=== PATIENT | female | born 1955 ===

== ENCOUNTER 2021-04-14 09:15 | Outpatient (RCR) | payer OTHER, SELFPAY ==
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
[2021-03-24 13:15] VITALS: BMI 31.3
--- NOTE | 2021-03-24 13:30 | PC.ADMIT ---
Patient is a 65 year old female who was referred by her outpatient psychiatrist d/t increase in depression, anxiety, OCD, and PTSD sxs. Patient has been struggling with an increase in symptoms since she was started on Lyrica 3 months ago which was prescribed as patient was presumed to have shingles for a second time. Patient reports that it turns out she did not have shingles however reports adverse effects of the medication including dizziness and an increase in depression and anxiety thus she stopped the medication. Patient reports an increase in self harming thoughts for the past 3 weeks, denied plan or intent. Patient reports a history of cutting her feet however has not cut herself since 2004. Patient has a history of hospitalization last time in 2019. Patient also has attending PHP 3 times and has found treatment to be helpful. Patient is alert and oriented x4. Calm and cooperative. Presents with depressed mood and anxious affect. Denied SI or thoughts to harm herself at present. Reports having obsessive thoughts to harm self for the past 3 weeks however denied plan or intent. Asked if patient was not feeling safe who could she contact and she stated she could go to the ER or call crisis. Patient has the number to crisis if needed. Patient gave verbal permission to email her a copy of her safety plan. Medications reconciled with Babs from [facility] and patient. Patient reports Anafranil was recently increased from 50 mg to 75 mg daily. She also reports she has been taking medications as prescribed. Medication education provided.
--- NOTE | 2021-03-30 14:37 | P.PNPSP_ITS ---
Subjective Subjective Date of Service: 03/30/21 Reason For Visit: MDD, OCD Subjective Notes: Esteban Warning Guardianship: No Medical Problems Affecting Mental Status: No Interim History: lAida reports that she feels some improvement since our last meeting a week ago. she attributes this improvement to the dose increase of clomipramine from 50 mg daily to 75 mg daily, which occurred approximately 2 weeks ago. She states that she has a decreased frequency in thoughts of self- harm within the past week. She did state that during the past week however there was 1 moment when I was holding some glass , with the intention of self- harm, but was able to dismiss these thoughts. She states that she feels safe today, and is not having any type of thoughts of harm to self or others at this time. She reports she feels her other medications are working appropriately, at current doses. She wishes to remain on current med as is, and she hopes that over time with the increased clomipramine, along with the other medications, the thoughts of self-harm will decrease further in frequency, As well as the ability to dismiss such thoughts will increase. She reports she has an adequate supply of current medications, and no refills are needed. Medication Compliance: Yes Side effects from medications: No Attending Groups: Yes Review of Systems Review of Systems A full review of systems was completed and was negative with the exception of pertinent positives noted in the history of presenting illness. Yes all other systems are reviewed and are negative Mental Status Exam Mental Status Exam Narrative: Well-developed, well-nourished female, appeared alert and oriented, in no apparent distress. Patient Appearance: Well Grooomed and Appropriate Patient Orientation: Person, Place, Time and Situation Level of Consciousness: Awake, Appropriate and Alert Patient Behavior: Appropriate, Cooperative and Good Eye Contact Mood Description: Appropriate, Depressed and Anxious Affect Description: Appropriate, Depressed and Anxious Patient Cognition Impaired: No Ability to Follow Directions: Excellent Speech Pattern: Clear (soft-spoken) and Soft-Spoken Memory Description: Intact Hallucinations: None Delusions: Not Present Thought Process: Intact, Goal Oriented and Linear Thought Content: positive for Intact, positive for Obsessional Thoughts (continues with thoughts of self-harm, but reports they have begun to lessen in frequency. ) and positive for Suicidal Ideation (passive SI, denies intent or plan. However, has picked up sharp objects within past week with intent to harm self, was able to dismiss thoughts and put down objects. ) Depressive Symptoms: Increased Anxiety, Loss of Int. in Activity, Feelings of Worthlessness and Thoughts of /Suicide Judgement: Fair Judgement and Insight: Judgment and insight continue fair Diagnostics Vital Signs (24Hr): Body Mass Index 31.3 Assessment & Plan Assessment & Plan (1) Depression, major, severe recurrence: Status: Acute Code(s): F33.2 - Major depressive disorder, recurrent severe without psychotic features Assessment and Plan: patient reports she feels that frequency of Intrusive thoughts with SI is decreasing. She also reports that her ability to dismiss these thoughts when they occur is increasing. However, she does acknowledge that she continues to experience them, aura and found herself over the past week at 1 point holding some glass , with the intent of self-harm. She reports that she did not act on this, but was able to put the class down in to dismiss the thought. Denies any type of intent of self-harm today, reports that she feels safe today. She agrees to seek assistance if these thoughts to harm self become overwhelming. Patient has phone number of local crisis team readily available. (2) OCD (obsessive compulsive disorder): Status: Acute Code(s): F42.9 - Obsessive-compulsive disorder, unspecified Assessment and Plan: Patient reports that she believes the recent increase of clomipramine 2 weeks ago from 50 mg to 75 mg is helping to begin to ease some of her OCD symptoms. she reports that she does not need any refills on her medications at this time. Plan: Continue with current medications as is, Including Abilify 5 mg, clomipramine 75 mg, clonazepam 0.5 b.i.d., lorazepam 0.5 b.i.d. p.r.n., Prilosec 20, Paxil 40 mg at bedtime, propranolol 10 mg daily, and quetiapine 200 mg at bedtime. No refills needed. Follow-up with patient in 1 week, sooner if needed. Certification I certify that partial hospital treatment is medically necessary due to the symptoms and problems resulting from the patient's mental illness and the failure to treat the patient at the partial hospital level of care would likely result in the patient requiring inpatient psychiatric care which could not be prevented at a less intensive level of care. Greater than 50% of the session was spent on counseling and/or coordination of care Discharge Plan Discharge Attending provider: Remington Burgess Medications: New propranolol 10 mg tablet 10 mg PO DAILY 14 Days Qty: 14 RF: 0 No Action quetiapine [Seroquel] 200 mg Tablet 200 mg PO BEDTIME RF: 0 clonazepam [Klonopin] 1 mg Tablet 0.5 mg PO BID RF: 0 lorazepam 0.5 mg Tablet 0.5 mg PO BID PRN (Reason: Anxiety) RF: 0 paroxetine HCl [Paxil] 40 mg Tablet 40 mg PO BEDTIME RF: 0 clomipramine [Anafranil] 25 mg Capsule 75 mg PO BEDTIME RF: 0 aripiprazole [Abilify] 5 mg Tablet 5 mg PO BEDTIME RF: 0 omeprazole magnesium [Prilosec OTC] 20 mg Tablet,Delayed Release (Dr/Ec) 20 mg PO DAILY RF: 0 Telehealth Telehealth Location of provider rendering services: practice address Location of patient: address on file Patient Identification confirmed using: Name, : Yes Telehealth method: video Patient verbally consented to treatment: Yes Patient verbally consented to billing insurance company: Yes Patient informed of any privacy concerns related to visit: Yes Time spent with patient (mins): 15
--- NOTE | 2021-04-03 16:37 | HO.PHPPROGNO ---
Subjective Subjective Date of Service: 04/03/21 Reason For Visit: MDD, OCD Subjective Notes: Esteban Warning Guardianship: No Medical Problems Affecting Mental Status: No Interim History: Alida reports feeling good today. She states that she believes the increase in the Anafranil from 50 mg to 75 mg has helped her to manage my thoughts . She states that she does not feel any compulsions today to self-harm, and denies any type of SI at this time. She reports that she has been feeling this way for the past 4 to 5 days. She did state that she feels she is experiencing a definite tremor in her chin and lips, and would like to taper down her Abilify from 5 mg daily to 2.5 mg daily. We discussed her most recent stable days regarding lack of compulsion to self-harm. This instructional writer suggested that she hold off on lowering dose until she sees her outpatient provider, which will be within 2 weeks. Medication Compliance: Yes Side effects from medications: No Attending Groups: Yes Review of Systems Review of Systems no complaints Yes all other systems are reviewed and are negative Mental Status Exam Mental Status Exam Narrative: well groomed, well-nourished female, appears stated age each. In no apparent distress. Patient Appearance: Well Grooomed and Appropriate Patient Orientation: Person, Place, Time and Situation Level of Consciousness: Awake and Appropriate Patient Behavior: Appropriate and Cooperative Mood Description: Appropriate, Depressed and Anxious Affect Description: Appropriate, Depressed and Anxious Patient Cognition Impaired: No Ability to Follow Directions: Excellent Speech Pattern: Clear and Appropriate Memory Description: Intact Hallucinations: None Delusions: Not Present Thought Content: positive for Intact, positive for Obsessional Thoughts (Reports a decrease in obsessional thoughts.), positive for Goal Oriented, positive for Linear and positive for Suicidal Ideation (Denies any type of SI at this time.) Depressive Symptoms: Increased Anxiety and Thoughts of /Suicide (Reports a decrease in obsessional thoughts to harm self. Denies any type of SI at this time.) Judgement: Good Judgement and Insight: Overall judgment and insight appear grossly intact. Diagnostics Vital Signs (24Hr): Body Mass Index 31.3 Assessment & Plan Assessment & Plan (1) OCD (obsessive compulsive disorder): Status: Acute Code(s): F42.9 - Obsessive-compulsive disorder, unspecified Assessment and Plan: Patient reports a decrease in obsessional thoughts to harm self. States she believes this is in relation to increased dose of Anafranil. No medication changes at this time. (2) Depression, major, severe recurrence: Status: Acute Code(s): F33.2 - Major depressive disorder, recurrent severe without psychotic features Assessment and Plan: Patient reports mood is improving, states she has not had any thoughts to harm herself within past 4-5 days. No medication changes at this time. No refills needed. Certification I certify that partial hospital treatment is medically necessary due to the symptoms and problems resulting from the patient's mental illness and the failure to treat the patient at the partial hospital level of care would likely result in the patient requiring inpatient psychiatric care which could not be prevented at a less intensive level of care. Greater than 50% of the session was spent on counseling and/or coordination of care Discharge Plan Discharge Attending provider: Remington Burgess Medications: New propranolol 10 mg tablet 10 mg PO DAILY 14 Days Qty: 14 RF: 0 No Action quetiapine [Seroquel] 200 mg Tablet 200 mg PO BEDTIME RF: 0 clonazepam [Klonopin] 1 mg Tablet 0.5 mg PO BID RF: 0 lorazepam 0.5 mg Tablet 0.5 mg PO BID PRN (Reason: Anxiety) RF: 0 paroxetine HCl [Paxil] 40 mg Tablet 40 mg PO BEDTIME RF: 0 clomipramine [Anafranil] 25 mg Capsule 75 mg PO BEDTIME RF: 0 aripiprazole [Abilify] 5 mg Tablet 5 mg PO BEDTIME RF: 0 omeprazole magnesium [Prilosec OTC] 20 mg Tablet,Delayed Release (Dr/Ec) 20 mg PO DAILY RF: 0 Telehealth Telehealth Location of provider rendering services: practice address Location of patient: address on file Patient Identification confirmed using: Name, : Yes Telehealth method: video Patient verbally consented to treatment: Yes Patient verbally consented to billing insurance company: Yes Patient informed of any privacy concerns related to visit: Yes Time spent with patient (mins): 15
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
--- NOTE | 2021-04-14 12:07 | PC.NURSE ---
Patient scheduled for discharge today. Reviewed patient medications with patient. Patient reports taking medications as prescribed. Appears to understand her medications. No safety concerns. Denied SI or thoughts to harm herself. Feels ready for discharge. Patient has the crisis number if needed.
--- NOTE | 2021-04-14 14:33 | PC.NURSE ---
I left a message for Mary Ann Mortensen re clients dc from program
== END 2021-04-17 07:42 | disposition home or self-care (01) ==
LOC: HO.PHPA 09:15
PROVIDERS: Visit Provider Psychiatry & Neurology Psychiatry
DX: F33.2 Major depressive disorder, recurrent severe without psychotic features (principal); F42.9 Obsessive-compulsive disorder, unspecified; F43.10 Post-traumatic stress disorder, unspecified; Z79.899 Other long term (current) drug therapy
CPT/HCPCS: 90791; 90853

== ENCOUNTER 2021-05-01 07:22 | Outpatient (REF) | payer OTHER, SELFPAY ==
[2021-05-06 05:47] LABS: Clomipramine 264 mcg/L (50-250); Clomipramine + Desmethylclom 566 mcg/L (200-600); Desmethylclomipramine 302 mcg/L (150-350)
== END 2021-05-01 07:23 | disposition home or self-care (01) ==
LOC: HO.LAB 07:22
PROVIDERS: PCP Nurse Practitioner Family; Visit Provider Psychiatry & Neurology Psychiatry
DX: Z51.81 Encounter for therapeutic drug level monitoring (principal); F33.3 Major depressive disorder, recurrent, severe with psychotic symptoms; Z79.899 Other long term (current) drug therapy
CPT/HCPCS: 36415; 80335

== ENCOUNTER 2021-07-14 08:55 | Outpatient (REF) | payer OTHER, SELFPAY ==
--- NOTE | 2021-07-14 09:11 | ECG_ITS ---
Test Reason : med monitoring Blood Pressure : / mmHG Vent. Rate : 073 BPM Atrial Rate : 073 BPM P-R Int : 178 ms QRS Dur : 084 ms QT Int : 390 ms P-R-T Axes : 060 -05 043 degrees QTc Int : 429 ms Normal sinus rhythm Nonspecific ST abnormality Anterior leads Abnormal ECG When compared with ECG of 20-NOV-2019 16:04, No significant change was found Referred By: Ovidio Williamson Electronically Signed By:LIZ OLVERA MD
[2021-07-14 10:00] LABS: Estimated Average Glucose 111 mg/dL; Hemoglobin A1c % 5.5 %
[2021-07-14 10:12] LABS: Alanine Aminotransferase 38 U/L (0-31); Albumin Level 4.1 g/dL (3.5-5.0); Alkaline Phosphatase 92 U/L (39-117); Anion Gap 10 (12-20); Aspartate Amino Transferase 27 U/L (5-31); Bilirubin Total 0.3 mg/dL (0.0-1.0); Blood Urea Nitrogen 18 mg/dL (9-16); Calcium 9.7 mg/dL (8.4-10.2); Carbon Dioxide 30 mmol/L (22-29); Chloride 107 mmol/L (96-108); Estimated Glomerular Filt Rate 59; Glucose Random 87 mg/dL (60-115); Potassium 4.3 mmol/L (3.3-5.1); Sodium 143 mmol/L (135-145); Total Protein 6.7 g/dL (6.5-8.0)
== END 2021-07-14 08:56 | disposition home or self-care (01) ==
LOC: HO.LAB 08:55
PROVIDERS: Visit Provider Psychiatry & Neurology Psychiatry
DX: F33.3 Major depressive disorder, recurrent, severe with psychotic symptoms (principal); K76.0 Fatty (change of) liver, not elsewhere classified; Z79.899 Other long term (current) drug therapy
CPT/HCPCS: 36415; 80053; 83036; 93005

== ENCOUNTER 2021-10-13 20:13 | Inpatient (IN) | payer OTHER, SELFPAY ==
[2021-10-13 21:01] VITALS: BP 164/94; PULSE 78; RESP 14; TEMP 36.9; O2SAT 95; BMI 32.8
--- NOTE | 2021-10-13 21:21 | PC.NURSE ---
Pt belongings placed in pod locker 9. Pt changed to hospital gown, pants, and socks.
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
[2021-10-13 22:11] VITALS: BP 127/75; PULSE 73; RESP 20; TEMP 36.7; O2SAT 96
[2021-10-13 23:32] LABS: MANUAL DIFF FLAG NO
[2021-10-13 23:34] LABS: Basophils Absolute Auto 0.1 X10*3/uL (0.0-0.2); Basophils Percent Auto 0.6 % (0-2); Eosinophils Absolute Auto 0.6 X10*3/uL (0.0-0.4); Eosinophils Percent Auto 7.2 % (0-4); Hemoglobin 13.2 g/dl (12.0-16.0); Imm Gran Abs Auto 0.03 X10*3/uL (0.00-0.03); Imm Gran Pct Auto 0.4 % (0.0-0.4); Lymphocytes Absolute Auto 2.3 X10*3/uL (1.2-4.9); Lymphocytes Percent Auto 26.6 % (20-40); Mean Corpuscular HGB Conc 32.2 g/dl (31.0-35.0); Mean Corpuscular Hemoglobin 30.8 pg (27.0-33.0); Mean Corpuscular Volume 95.8 fL (80.0-98.0); Mean Platelet Volume 11.9 fL (9.4-12.3); Monocytes Absolute Auto 0.7 X10*3/uL (0.1-1.2); Monocytes Percent Auto 8.4 % (2-11); Neutrophils Absolute Auto 4.8 x10*3/uL (2.0-8.3); Neutrophils Percent Auto 56.8 % (45-73); Platelet Count 199 X10*3/uL (160-400); Red Blood Count 4.28 X10*6/uL (4.20-5.50); Red Cell Distribution Width 13.7 % (11.0-16.0); White Blood Count 8.5 X10*3/uL (4.8-10.8)
[2021-10-13 23:52] LABS: COVID-19 Test Negative (Negative); IDNOW Serial# 9DD0AD1C
[2021-10-14] LABS: Amphetamine Screen Urine Not Detected (Not Detect); Barbiturates, Urine Not Detected (Not Detect); Benzodiazepines Screen Urine Not Detected (Not Detect); Cannabinoid Screen Urine Not Detected (Not Detect); Cocaine Screen Urine Not Detected (Not Detect); Fentanyl, urine Not Detected (Not Detect); Opiate Screen Urine Not Detected (Not Detect); Phencyclidine Screen Urine Not Detected (Not Detect)
[2021-10-14 00:02] LABS: Alanine Aminotransferase 55 U/L (0-31); Albumin Level 3.9 g/dL (3.5-5.0); Alkaline Phosphatase 106 U/L (39-117); Anion Gap 10 (12-20); Aspartate Amino Transferase 37 U/L (5-31); Bilirubin Total < 0.2 mg/dL (0.0-1.0); Blood Urea Nitrogen 17 mg/dL (9-16); Calcium 9.6 mg/dL (8.4-10.2); Carbon Dioxide 29 mmol/L (22-29); Chloride 107 mmol/L (96-108); Creatinine Clr Calc Pharmacy 74.8; Estimated Glomerular Filt Rate > 60; Glucose Random 103 mg/dL (60-115); Sodium 142 mmol/L (135-145); Total Protein 6.9 g/dL (6.5-8.0)
[2021-10-14 00:51] VITALS: BP 109/72; PULSE 80; RESP 16; TEMP 36.8; O2SAT 96
[2021-10-14 00:54] LABS: Appearance Urine CLEAR; Color Urine YELLOW; Glucose Urine UA NEG (NEG); Leukocyte Esterase Urine NEG (NEG); Nitrite Urine NEG (NEG); Specific Gravity - Urine 1.015 (1.005-1.025); Urine Blood NEG (NEG); Urine Ketones NEG (NEG); Urine Protein NEG (NEG-TRACE)
[2021-10-14 02:17] VITALS: BP 119/70; PULSE 79; RESP 16; TEMP 37.1; O2SAT 95
[2021-10-14 05:49] VITALS: BP 132/74; PULSE 68; RESP 16; TEMP 36.9; O2SAT 97
--- NOTE | 2021-10-14 07:37 | MHC.CARE ---
Pt reported she did not receive her evening medications on 10/13/21. CARE Team spoke with charge entry specialist Darci that Pt did not receive her evening medications last night. stamp pad finisher made aware and verified Pt morning medications were ordered for today.
[2021-10-14 07:42] VITALS: BP 118/76; PULSE 79; RESP 16; TEMP 37.3; O2SAT 95
[2021-10-14] MEDS: PARoxetine HCL 30 MG TABLET PO (07:42)
[2021-10-14] MEDS: clonazePAM 0.5 MG TABLET PO ×2 (07:43→20:35)
[2021-10-14] MEDS: Propranolol HCL 10 MG TABLET PO (07:43)
[2021-10-14] MEDS: Omeprazole 20 MG CAPSULE.DR PO (07:43)
[2021-10-14 09:47] VITALS: BP 134/78; PULSE 76; RESP 16; TEMP 37; O2SAT 95
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
[2021-10-14 15:34] VITALS: BP 133/80; PULSE 79; TEMP 36.6; O2SAT 98
--- NOTE | 2021-10-14 18:39 | PC.NURSE ---
report taken from thais erazo at this time. Pt in day room interacting with peers and watching tv. pt appears in nad. Will continue to monitor
[2021-10-14] MEDS: clomiPRAMINE HCl 25 MG CAPSULE 75 MG PO (20:35)
[2021-10-14] MEDS: LORazepam 0.5 MG TABLET PO (20:35)
[2021-10-14] MEDS: ARIPiprazole 5 MG TABLET PO (20:39)
[2021-10-15 03:47] VITALS: BP 139/82; PULSE 75; RESP 15; TEMP 36.8; O2SAT 99
--- NOTE | 2021-10-15 06:01 | PC.NURSE ---
Patient slept through the night, no distress observed/reported, medication compliant, behavior appropriate, disposition per care team is section 12 inpatient bed search, VSS, will continue to monitor.
--- NOTE | 2021-10-15 07:38 | PC.NURSE ---
SItting in common area. Chatting with staff and patients. Calm. Good eye contact. Skin pwd. steady on feet. Eating breakfast.
[2021-10-15] MEDS: Propranolol HCL 10 MG TABLET PO (09:17)
[2021-10-15] MEDS: clonazePAM 0.5 MG TABLET PO ×2 (09:17→20:40)
[2021-10-15] MEDS: PARoxetine HCL 30 MG TABLET PO (09:17)
[2021-10-15] MEDS: Omeprazole 20 MG CAPSULE.DR PO (09:17)
--- NOTE | 2021-10-15 12:15 | PC.NURSE ---
Pt has been calm since this RN arrival at 7am. socializing and at times resting alone in room. States that were she to be home she'd likely be triggered and would possible attempt Suicide. Has no plan for self harm while in POD.
[2021-10-15 14:00] VITALS: BP 136/62; PULSE 74; TEMP 37.1; O2SAT 98
[2021-10-15] MEDS: LORazepam 0.5 MG TABLET PO (18:34)
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
[2021-10-15] MEDS: ARIPiprazole 5 MG TABLET PO (20:40)
[2021-10-15] MEDS: clomiPRAMINE HCl 25 MG CAPSULE 75 MG PO (20:41)
--- NOTE | 2021-10-16 | ECG_ITS ---
Test Reason : medical clearance Blood Pressure : / mmHG Vent. Rate : 070 BPM Atrial Rate : 070 BPM P-R Int : 168 ms QRS Dur : 090 ms QT Int : 424 ms P-R-T Axes : 061 -02 040 degrees QTc Int : 457 ms Normal sinus rhythm Nonspecific ST abnormality Abnormal ECG When compared with ECG of 14-JUL-2021 09:15, No significant change was found Referred By: Radha Fry Electronically Signed By:KORTNEY HARDIN MD
[2021-10-16 01:53] VITALS: BP 140/74; PULSE 78; RESP 17; TEMP 36.4; O2SAT 99
--- NOTE | 2021-10-16 06:07 | PC.NURSE ---
Patient slept through the night, no distress observed/reported, medication compliant, behavior appropriate and non-concerning, disposition per care team is section 12 inpatient bed search, no update on bed search, VSS, will continue to monitor
[2021-10-16 06:47] VITALS: BMI 32.4
--- NOTE | 2021-10-16 07:14 | PC.NURSE ---
patient awake at present respirations appear even and unlabored, patient quietly socializing w similar age peer patient appears in no distress
[2021-10-16 07:57] VITALS: BP 120/67; PULSE 75; RESP 14; TEMP 36.7; O2SAT 96
[2021-10-16] MEDS: Propranolol HCL 10 MG TABLET PO (08:23)
[2021-10-16] MEDS: Omeprazole 20 MG CAPSULE.DR PO (08:24)
[2021-10-16] MEDS: PARoxetine HCL 30 MG TABLET PO (08:24)
[2021-10-16] MEDS: clonazePAM 0.5 MG TABLET PO ×2 (08:24→20:48)
[2021-10-16] MEDS: LORazepam 0.5 MG TABLET PO (09:35)
[2021-10-16 10:19] LABS: COVID-19 Test Negative (Negative)
--- NOTE | 2021-10-16 14:59 | PC.NURSE ---
Patient is alert and oriented x 4 lung sounds are clear skin is pink warm and dry speaks in full sentences without difficulty aware of planof care to be admitted to room 517-1, escorted to via wheel chair with staff, security and belongings.
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
[2021-10-16] MEDS: clomiPRAMINE HCl 25 MG CAPSULE 75 MG PO (20:48)
[2021-10-16] MEDS: ARIPiprazole 5 MG TABLET PO (20:48)
[2021-10-17] MEDS: LORazepam 0.5 MG TABLET PO (03:02)
[2021-10-17 08:30] LABS: Cholesterol 236 mg/dL; HDL Cholesterol 47 mg/dL; LDL Cholesterol Calculated 160 mg/dl; Magnesium 2.4 mg/dL (1.6-2.6); Triglycerides 145 mg/dL
[2021-10-17 08:48] LABS: Estimated Average Glucose 108 mg/dL; Hemoglobin A1c % 5.4 %
[2021-10-17 08:52] LABS: Free T4 (Free Thyroxine) 0.84 ng/dL (0.71-1.85); Thyroid Stimulating Hormone 5.51 uIU/mL (0.32-4.0)
[2021-10-17] MEDS: Propranolol HCL 10 MG TABLET PO (09:01)
[2021-10-17] MEDS: Omeprazole 20 MG CAPSULE.DR PO (09:01)
[2021-10-17] MEDS: clonazePAM 0.5 MG TABLET PO ×2 (09:02→20:49)
[2021-10-17] MEDS: PARoxetine HCL 30 MG TABLET PO (09:02)
[2021-10-17 09:06] VITALS: BP 140/63; PULSE 81; RESP 18; TEMP 36.2; O2SAT 98
[2021-10-17 09:43] LABS: Vitamin B12 417 pg/mL (200-900)
[2021-10-17] MEDS: PARoxetine HCL 10 MG TABLET PO (13:59)
[2021-10-17 18:00] VITALS: BP 129/77; PULSE 83; TEMP 35.8; O2SAT 98
[2021-10-17] MEDS: ARIPiprazole 5 MG TABLET PO (20:48)
[2021-10-17] MEDS: clomiPRAMINE HCl 25 MG CAPSULE 75 MG PO (20:49)
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
[2021-10-18] MEDS: LORazepam 0.5 MG TABLET PO (01:20)
[2021-10-18 06:00] VITALS: BP 120/75; PULSE 79; TEMP 36.4; O2SAT 99
[2021-10-18] MEDS: Omeprazole 20 MG CAPSULE.DR PO (08:37)
[2021-10-18] MEDS: Propranolol HCL 10 MG TABLET PO (08:37)
[2021-10-18] MEDS: PARoxetine HCL 40 MG TABLET PO (08:38)
[2021-10-18] MEDS: clonazePAM 0.5 MG TABLET PO ×2 (08:38→20:56)
[2021-10-18 18:30] VITALS: BP 125/68; PULSE 78; RESP 18; TEMP 36.2; O2SAT 99
[2021-10-18] MEDS: QUEtiapine Fumarate 100 MG TABLET PO (20:55)
[2021-10-18] MEDS: clomiPRAMINE HCl 25 MG CAPSULE 75 MG PO (20:55)
[2021-10-18] MEDS: ARIPiprazole 5 MG TABLET PO (20:56)
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
[2021-10-19 06:00] VITALS: BP 119/60; PULSE 78; TEMP 36.3; O2SAT 98
[2021-10-19] MEDS: Omeprazole 20 MG CAPSULE.DR PO (08:51)
[2021-10-19] MEDS: clonazePAM 0.5 MG TABLET PO ×2 (08:51→20:58)
[2021-10-19] MEDS: PARoxetine HCL 40 MG TABLET PO (08:51)
[2021-10-19] MEDS: Propranolol HCL 10 MG TABLET PO (08:51)
[2021-10-19 18:51] VITALS: BP 123/67; PULSE 75; RESP 18; TEMP 36.4; O2SAT 96
[2021-10-19] MEDS: QUEtiapine Fumarate 100 MG TABLET PO (20:57)
[2021-10-19] MEDS: clomiPRAMINE HCl 25 MG CAPSULE 75 MG PO (20:57)
[2021-10-19] MEDS: ARIPiprazole 5 MG TABLET PO (20:58)
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
[2021-10-20] MEDS: LORazepam 1 MG TABLET PO (04:18)
[2021-10-20 05:43] VITALS: BP 110/68; PULSE 77; TEMP 35.9; O2SAT 96
[2021-10-20] MEDS: Omeprazole 20 MG CAPSULE.DR PO (09:19)
[2021-10-20] MEDS: clonazePAM 0.5 MG TABLET PO ×2 (09:20→20:42)
[2021-10-20] MEDS: PARoxetine HCL 40 MG TABLET PO (09:20)
[2021-10-20] MEDS: Propranolol HCL 10 MG TABLET PO (09:20)
[2021-10-20] MEDS: QUEtiapine Fumarate 100 MG TABLET PO (20:41)
[2021-10-20] MEDS: clomiPRAMINE HCl 25 MG CAPSULE 75 MG PO (20:41)
[2021-10-20] MEDS: ARIPiprazole 5 MG TABLET PO (20:42)
[2021-10-20 21:39] VITALS: BP 112/70; PULSE 78; RESP 17; TEMP 36.4; O2SAT 97
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
[2021-10-21] MEDS: QUEtiapine Fumarate 100 MG TABLET PO ×2 (01:11→21:09)
[2021-10-21 06:00] VITALS: BP 114/62; PULSE 77; TEMP 35.9; O2SAT 97
[2021-10-21] MEDS: PARoxetine HCL 40 MG TABLET PO (08:56)
[2021-10-21] MEDS: Omeprazole 20 MG CAPSULE.DR PO (08:56)
[2021-10-21] MEDS: clonazePAM 0.5 MG TABLET PO ×2 (08:56→21:09)
[2021-10-21] MEDS: Propranolol HCL 10 MG TABLET PO (08:56)
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
[2021-10-21 18:00] VITALS: BP 107/79; PULSE 72; TEMP 36.6; O2SAT 95
[2021-10-21] MEDS: clomiPRAMINE HCl 25 MG CAPSULE 75 MG PO (21:09)
[2021-10-21] MEDS: ARIPiprazole 5 MG TABLET PO (21:09)
[2021-10-22] MEDS: QUEtiapine Fumarate 50 MG TABLET PO ×2 (01:31→22:57)
[2021-10-22 06:00] VITALS: BP 124/58; PULSE 70; TEMP 36.3; O2SAT 97
[2021-10-22] MEDS: PARoxetine HCL 40 MG TABLET PO (08:12)
[2021-10-22] MEDS: Omeprazole 20 MG CAPSULE.DR PO (08:12)
[2021-10-22] MEDS: clonazePAM 0.5 MG TABLET PO ×2 (08:13→21:22)
[2021-10-22] MEDS: Propranolol HCL 10 MG TABLET PO (08:13)
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
[2021-10-22] MEDS: QUEtiapine Fumarate 100 MG TABLET PO (21:22)
[2021-10-22] MEDS: ARIPiprazole 5 MG TABLET PO (21:22)
[2021-10-22] MEDS: clomiPRAMINE HCl 25 MG CAPSULE 75 MG PO (21:23)
[2021-10-23 06:00] VITALS: BP 117/57; PULSE 72; TEMP 36.1; O2SAT 99
[2021-10-23] MEDS: clonazePAM 0.5 MG TABLET PO (08:38)
[2021-10-23] MEDS: Omeprazole 20 MG CAPSULE.DR PO (08:38)
[2021-10-23] MEDS: PARoxetine HCL 40 MG TABLET PO (08:38)
[2021-10-23] MEDS: Propranolol HCL 10 MG TABLET PO (08:38)
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
[2021-10-23 13:09] LABS: Alanine Aminotransferase 31 U/L (0-31); Alkaline Phosphatase 94 U/L (39-117); Aspartate Amino Transferase 23 U/L (5-31); Bilirubin Direct < 0.2 mg/dL (0.0-0.5); Bilirubin Total 0.3 mg/dL (0.0-1.0); Total Protein 6.7 g/dL (6.5-8.0)
[2021-10-23 13:14] LABS: TSH reflex Free T4 3.32 uIU/mL (0.32-4.0)
== END 2021-10-23 14:25 | disposition home or self-care (01) | DRG 885 ==
LOC: HO.ED 10-14 12:17 → HO.PM5 10-16 13:59
PROVIDERS: Physician Assistant; Admitting Provider Clinical Nurse Specialist Psychiatric/Mental Health, Adult; Emergency Provider Student in an Organized Health Care Education/Training Program; Visit Provider Psychiatry & Neurology Psychiatry
DX: F33.2 Major depressive disorder, recurrent severe without psychotic features (principal); R45.851 Suicidal ideations; F43.10 Post-traumatic stress disorder, unspecified; F42.9 Obsessive-compulsive disorder, unspecified; Z20.822 Contact with and (suspected) exposure to COVID-19; Z79.899 Other long term (current) drug therapy
CPT/HCPCS: 36415; 80053; 80061; 80076; 80307; 81003; 82607; 82746; 83036; 83735; 84439; 84443; 85025; 87635; 93005; 99285

== ENCOUNTER 2021-11-14 08:45 | Outpatient (RCR) | payer OTHER, SELFPAY ==
[2021-10-26 12:03] VITALS: BMI 32.4
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
--- NOTE | 2021-10-26 14:28 | PC.NURSE ---
Case opened in treatment team
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
--- NOTE | 2021-11-02 16:41 | P.PNPSP_ITS ---
Subjective Subjective Date of Service: 11/02/21 Reason For Visit: PTSD, unspecified, OCD, unspecified, MDD, severe Guardianship: No Medical Problems Affecting Mental Status: No Interim History: Reports mood as ?okay ?today. Reports that she did experience increased anxiety earlier today, due to a nightmare. Continues with passive SI, fleeting, no intent or plan at this time. Medication Compliance: Yes Side effects from medications: No Attending Groups: Yes Review of Systems Acute medical concerns: No Medical Review of Systems: unchanged Review of Systems Review of Systems Yes all other systems are reviewed and are negative Constitutional: Reports no additional constitutional complaints Mental Status Exam Mental Status Exam Narrative: Well-developed, well-nourished, in NAD. Fully attentive during encounter. Depressed, Somewhat anxious mood and affect. Patient Appearance: Well Grooomed and Appropriate Patient Orientation: Person, Place, Time and Situation Level of Consciousness: Awake, Appropriate and Alert Patient Behavior: Appropriate, Cooperative and Good Eye Contact Mood Description: Appropriate, Depressed and Anxious Affect Description: Appropriate, Depressed and Anxious Patient Cognition Impaired: No Ability to Follow Directions: Excellent Speech Pattern: Clear, Appropriate, Coherent and Soft-Spoken Memory Description: Intact Hallucinations: None Delusions: Not Present Thought Process: Intact Thought Content: positive for Intact, positive for Obsessional Thoughts and positive for Suicidal Ideation (Passive, no intent or plan.) Depressive Symptoms: Increased Anxiety, Difficulty Sleeping, Loss of Int. in Activity, Feelings of Worthlessness, Hopelessness, Feelings of Guilt, Unhappiness, Increased Fatigue, Thoughts of /Suicide and Low Self Esteem Judgement: Fair Diagnostics Vital Signs (24Hr): BMI result Body Mass Index 32.4 Assessment & Plan Assessment & Plan (1) PTSD (post-traumatic stress disorder): Status: Acute Code(s): F43.10 - Post-traumatic stress disorder, unspecified Assessment and Plan: Describes mood as ?okay? today. Reports that she felt she was improving regarding symptoms of depression and anxiety since she has been participating in [facility]. States though that today she became extremely anxious in the morning, after having a nightmare. She utilized 1 of her p.r.n. Ativan 0.5 tabs, and chose to participate fully in groups today. She finds that that has been extremely helpful. Continues with passive SI, fleeting, no intent or plan. Feels safe, no safety concern at this time. Does not feel any medication changes at this time are needed, as she believes the medications are working to help alleviate overall depression and anxiety, OCD symptoms. Does not need any refills. (2) OCD (obsessive compulsive disorder): Status: Acute Code(s): F42.9 - Obsessive-compulsive disorder, unspecified (3) Depression, major, severe recurrence: Status: Acute Code(s): F33.2 - Major depressive disorder, recurrent severe without psychotic features Plan 1. Continue with current medication regimen as prescribed by outpatient provider. 2. Continue with [facility] plan of care. 3. Follow-up as per protocol. Patient educated on: diagnosis, medication risk/benefits and therapeutic strategies Informed Consent: understands Reason for contiued partial hosp. stay Substantial Risk for: harm to self, inability to function and med/psych decomp ensation Certification I certify that partial hospital treatment is medically necessary due to the symptoms and problems resulting from the patient's mental illness and the failure to treat the patient at the partial hospital level of care would likely result in the patient requiring inpatient psychiatric care which could not be prevented at a less intensive level of care. I spent minutes with the patient and/or on the patient floor today, greater than?50% of which was spent counseling/coordinating care. Discharge Plan Discharge Attending provider: Remington Burgess Primary Care Provider: Kinsey Molina Medications: No Action clonazepam [Klonopin] 1 mg Tablet 0.5 mg PO BID 0RF Rx Instructions: Take 1/2 tab BID clomipramine [Anafranil] 25 mg Capsule 75 mg PO BEDTIME 0RF Label Comments: Patient stated medication has been increased to 3 caps at HS (75 mg). aripiprazole [Abilify] 5 mg Tablet 5 mg PO BEDTIME 0RF Label Comments: Patient takes at HS omeprazole magnesium [Prilosec OTC] 20 mg Tablet,Delayed Release (Dr/Ec) 20 mg PO DAILY 0RF paroxetine HCl 40 mg Tablet 40 mg PO DAILY 90 Days Qty: 90 0RF quetiapine 100 mg Tablet 100 mg PO BEDTIME 90 Days Qty: 140 0RF Rx Instructions: may take extra 1/2-1 up tp 2 x day propranolol 10 mg tablet 10 mg PO DAILY PRN (Reason: Anxiety) 14 Days Qty: 14 0RF lorazepam 0.5 mg Tablet 0.5 mg PO BID PRN (Reason: Anxiety) Qty: 0 0RF Rx Instructions: for severe agitation /anxiety may take up to 2 mg 1 x day for rescue Referrals: Kinsey Molina NP [Primary Care Provider] - 1 Week Stand Alone Forms: Patient Portal Discharge page Telehealth Telehealth Location of provider rendering services: practice address Location of patient: address on file Patient Identification confirmed using: Name, : Yes Telehealth method: video Patient verbally consented to treatment: Yes Patient verbally consented to billing insurance company: Yes Patient informed of any privacy concerns related to visit: Yes Time spent with patient (mins): 15
--- NOTE | 2021-11-09 14:44 | P.PNPSP_ITS ---
Subjective Subjective Date of Service: 11/09/21 Reason For Visit: PTSD, unspecified, OCD, unspecified, MDD, severe Guardianship: No Medical Problems Affecting Mental Status: No Interim History: Alida reports continued depressed mood, with nightmares, flashbacks of past trauma, feeling need to use her emergency meds. Denies SI/HI, no safety concern. Overwhelmed, states, It's been a rough week . Medication Compliance: Yes Side effects from medications: No Attending Groups: Yes Review of Systems Acute medical concerns: No Medical Review of Systems: unchanged Review of Systems Review of Systems Yes all other systems are reviewed and are negative Constitutional: Reports no additional constitutional complaints Mental Status Exam Mental Status Exam Narrative: Well groomed, Fully attentive during encounter. Depressed mood and affect. Patient Appearance: Well Grooomed and Appropriate Patient Orientation: Person, Place, Time and Situation Level of Consciousness: Awake, Appropriate and Alert Patient Behavior: Appropriate, Cooperative and Good Eye Contact Mood Description: Appropriate, Depressed and Sad Affect Description: Appropriate, Depressed and Sad Patient Cognition Impaired: No Ability to Follow Directions: Excellent Speech Pattern: Clear, Appropriate, Coherent and Soft-Spoken Memory Description: Intact Hallucinations: None Delusions: Not Present Thought Process: Intact Thought Content: positive for Intact and positive for Obsessional Thoughts Depressive Symptoms: Increased Anxiety, Difficulty Sleeping, Loss of Int. in A ctivity, Feelings of Worthlessness, Hopelessness, Feelings of Guilt (Also feelings of shame), Unhappiness, Increased Fatigue, Low Self Esteem and Loss of Energy Judgement: Fair Diagnostics Vital Signs (24Hr): BMI result Body Mass Index 32.4 Assessment & Plan Assessment & Plan (1) PTSD (post-traumatic stress disorder): Status: Acute Code(s): F43.10 - Post-traumatic stress disorder, unspecified Assessment and Plan: Client reports ?it has been a rough week ?. Continues with depressed mood, nightmares and flashbacks regarding past trauma. Denies SI. Patient's manages her medications in a lock box. She states that she is finding this helpful. She is given a small supply of medication as a rescue box, which includes benzodiazepine and quetiapine. She states that on days she feels overwhelmed, this is available to her. She states that she believes today she will take these after group, and try to get some rest. She states that she is finding this plan helpful when she becomes overwhelmed. She describes 2 incidents this week which have caused her distress. She met with her outpatient psychiatric provider with her on Saturday afternoon. She reported that she did find this stressful. When she met with her therapist this week, her therapist had recommended she tell her about some of her past trauma. She reported that she does not feel comfortable doing this, and actually found it triggering. She reports that although she has worked with her therapist for 19 years, she has not told her therapist her complete trauma history. She finds her past she came full, and does not want to share details. She states ?nobody should have to hear about those terrible things . Encouragement and support was offered. Patient reports that she feels her medications are helping, and does not feel she needs any medication changes at this time. She states ?I know I am doing the work, but it is difficult at times ?. She states that although at times she has had thoughts of taking more than her prescribed medications, she is not experiencing that today, and states she does not plan to harm herself. (2) OCD (obsessive compulsive disorder): Status: Acute Code(s): F42.9 - Obsessive-compulsive disorder, unspecified (3) Depression, major, severe recurrence: Status: Acute Code(s): F33.2 - Major depressive disorder, recurrent severe without psychotic features Plan 1. Continue with current [facility] plan of care. 2. Continue to offer support and encouragement. 3. Continue with current medication regimen as prescribed by outpatient provider. 4. Follow-up as per protocol, sooner if needed. Patient educated on: diagnosis, medication risk/benefits and therapeutic strategies Informed Consent: understands Reason for contiued partial hosp. stay Substantial Risk for: harm to self, inability to function, rapid decompensation and med/psych decompensation Certification I certify that partial hospital treatment is medically necessary due to the symptoms and problems resulting from the patient's mental illness and the failure to treat the patient at the partial hospital level of care would likely result in the patient requiring inpatient psychiatric care which could not be prevented at a less intensive level of care. I spent minutes with the patient and/or on the patient floor today, greater than?50% of which was spent counseling/coordinating care. Discharge Plan Discharge Attending provider: Remington Burgess Primary Care Provider: Kinsey Molina Medications: No Action clonazepam [Klonopin] 1 mg Tablet 0.5 mg PO BID 0RF Rx Instructions: Take 1/2 tab BID clomipramine [Anafranil] 25 mg Capsule 75 mg PO BEDTIME 0RF Label Comments: Patient stated medication has been increased to 3 caps at HS (75 mg). aripiprazole [Abilify] 5 mg Tablet 5 mg PO BEDTIME 0RF Label Comments: Patient takes at HS omeprazole magnesium [Prilosec OTC] 20 mg Tablet,Delayed Release (Dr/Ec) 20 mg PO DAILY 0RF paroxetine HCl 40 mg Tablet 40 mg PO DAILY 90 Days Qty: 90 0RF quetiapine 100 mg Tablet 100 mg PO BEDTIME 90 Days Qty: 140 0RF Rx Instructions: may take extra 1/2-1 up tp 2 x day propranolol 10 mg tablet 10 mg PO DAILY PRN (Reason: Anxiety) 14 Days Qty: 14 0RF lorazepam 0.5 mg Tablet 0.5 mg PO BID PRN (Reason: Anxiety) Qty: 0 0RF Rx Instructions: for severe agitation /anxiety may take up to 2 mg 1 x day for rescue Referrals: Kinsey Molina, CHAIN HOOKER [Primary Care Provider] - 1 Week Stand Alone Forms: Patient Portal Discharge page Telehealth Telehealth Location of provider rendering services: practice address Location of patient: address on file Patient Identification confirmed using: Name, : Yes Telehealth method: video Patient verbally consented to treatment: Yes Patient verbally consented to billing insurance company: Yes Patient informed of any privacy concerns related to visit: Yes Time spent with patient (mins): 20
--- NOTE | 2021-11-14 14:25 | P.PNPSP_ITS ---
Subjective Subjective Date of Service: 11/14/21 Reason For Visit: PTSD, unspecified, OCD, unspecified, MDD, severe Interim History: I evaluated the pt this morning. Pt reports ?I?ve been good, justo been getting better.? Today is her last day in [facility]. Next appointment with Dr. Williamson is the 06 of December, will be going to [place] for her birthday in the meantime. Interested in the PTSD program at [facility]. Says clomipramine ?really has changed my life? and that her panic attacks are ?much, much better.? Sleep is ?better.? Recently went to a concert in [place] with her family. Says she feels safe, denies SI/SIB.? Medication Compliance: Yes Side effects from medications: No Attending Groups: Yes Review of Systems Acute medical concerns: No Medical Review of Systems: unchanged Mental Status Exam Mental Status Exam Narrative: Patient Appearance:?Well Grooomed and Appropriate Patient Orientation:?Person, Place, Time and Situation Level of Consciousness:?Awake, Appropriate and Alert Patient Behavior:?Appropriate, Cooperative and Good Eye Contact Mood Description:?Appropriate, Depressed and Sad Affect Description:?Appropriate, Depressed and Sad Patient Cognition Impaired:?No Ability to Follow Directions:?Excellent Speech Pattern:?Clear, Appropriate, Coherent and Soft-Spoken Memory Description:?Intact Hallucinations:?None Delusions:?Not Present Thought Process:?Intact Thought Content:?positive for Intact and positive for Obsessional Thoughts Depressive Symptoms:?Increased Anxiety, Difficulty Sleeping, Loss of Int. in Activity, Feelings of Worthlessness, Hopelessness, Feelings of Guilt (Also feelings of shame), Unhappiness, Increased Fatigue, Low Self Esteem and Loss of Energy Judgment:?Fair Diagnostics Vital Signs (24Hr): BMI result Body Mass Index 32.4 Assessment & Plan Assessment & Plan (1) Depression, major, severe recurrence: Status: Acute Code(s): F33.2 - Major depressive disorder, recurrent severe without psychotic features (2) OCD (obsessive compulsive disorder): Status: Acute Code(s): F42.9 - Obsessive-compulsive disorder, unspecified (3) PTSD (post-traumatic stress disorder): Status: Acute Code(s): F43.10 - Post-traumatic stress disorder, unspecified Plan Pt reports positive benefit on medications and group therapy. Does not want med changes. Will follow up with OP provider. Says she feels safe, denies SI/SIB. Patient's manages her medications in a lock box.?Pt feels safe to discharge from [facility]. Plan 1. Follow up with primary psych provider 2. Continue with current medication regimen as prescribed by outpatient provider. Patient educated on: diagnosis, medication risk/benefits and therapeutic strategies Informed Consent: understands Reason for contiued partial hosp. stay Substantial Risk for: stable for discharge Certification I certify that partial hospital treatment is medically necessary due to the symptoms and problems resulting from the patient's mental illness and the failure to treat the patient at the partial hospital level of care would likely result in the patient requiring inpatient psychiatric care which could not be prevented at a less intensive level of care. I spent minutes with the patient and/or on the patient floor today, greater than?50% of which was spent counseling/coordinating care. Discharge Plan Discharge Attending provider: Remington Burgess Primary Care Provider: Kinsey Molina Medications: No Action clonazepam [Klonopin] 1 mg Tablet 0.5 mg PO BID 0RF Rx Instructions: Take 1/2 tab BID clomipramine [Anafranil] 25 mg Capsule 75 mg PO BEDTIME 0RF Label Comments: Patient stated medication has been increased to 3 caps at HS (75 mg). aripiprazole [Abilify] 5 mg Tablet 5 mg PO BEDTIME 0RF Label Comments: Patient takes at HS omeprazole magnesium [Prilosec OTC] 20 mg Tablet,Delayed Release (Dr/Ec) 20 mg PO DAILY 0RF paroxetine HCl 40 mg Tablet 40 mg PO DAILY 90 Days Qty: 90 0RF quetiapine 100 mg Tablet 100 mg PO BEDTIME 90 Days Qty: 140 0RF Rx Instructions: may take extra 1/2-1 up tp 2 x day propranolol 10 mg tablet 10 mg PO DAILY PRN (Reason: Anxiety) 14 Days Qty: 14 0RF lorazepam 0.5 mg Tablet 0.5 mg PO BID PRN (Reason: Anxiety) Qty: 0 0RF Rx Instructions: for severe agitation /anxiety may take up to 2 mg 1 x day for rescue Referrals: Kinsey Molina, PROGRAM DIRECTOR/MUSIC DIRECTOR [Primary Care Provider] - 1 Week Stand Alone Forms: Patient Portal Discharge page
--- NOTE | 2021-11-14 14:33 | PC.NURSE ---
Left dc message with Mary Ann Mortensen [facility] client therapist
--- NOTE | 2021-11-15 10:44 | PC.NURSE ---
Patient discharged from the program 11/14/21. Feels ready for discharge. Denied Si or thoughts to harm herself. Stating locking up her medications is working well. Reports taking medications as prescribed.
== END 2021-11-14 23:59 | disposition home or self-care (01) ==
LOC: HO.PHPA 08:45
PROVIDERS: PCP Nurse Practitioner Family; Visit Provider Psychiatry & Neurology Psychiatry
DX: F43.10 Post-traumatic stress disorder, unspecified (principal); F42.9 Obsessive-compulsive disorder, unspecified; F33.2 Major depressive disorder, recurrent severe without psychotic features; R45.851 Suicidal ideations; Z79.899 Other long term (current) drug therapy
CPT/HCPCS: 90791; 90853

== ENCOUNTER 2022-04-24 08:00 | Outpatient (REF) | payer MEDICARE, SELFPAY ==
[2022-04-24 09:10] LABS: Estimated Average Glucose 111 mg/dL; Hemoglobin A1c % 5.5 %
[2022-04-24 09:35] LABS: Alanine Aminotransferase 28 U/L (0-31); Alkaline Phosphatase 88 U/L (39-117); Anion Gap 13 (12-20); Aspartate Amino Transferase 21 U/L (5-31); Bilirubin Total 0.3 mg/dL (0.0-1.0); Blood Urea Nitrogen 18 mg/dL (9-16); Calcium 9.6 mg/dL (8.4-10.2); Carbon Dioxide 30 mmol/L (22-29); Chloride 105 mmol/L (96-108); Estimated Glomerular Filt Rate 54; Glucose Random 133 mg/dL (60-115); Sodium 144 mmol/L (135-145); Total Protein 6.7 g/dL (6.5-8.0)
[2022-04-24 09:58] LABS: Free T4 (Free Thyroxine) 0.78 ng/dL (0.71-1.85); Thyroid Stimulating Hormone 2.51 uIU/mL (0.32-4.0)
[2022-04-25 07:33] LABS: Triiodothyronine T3 Free 2.6 pg/mL (2.3-4.2)
[2022-04-30 15:16] LABS: Clomipramine 238 mcg/L (50-250); Clomipramine + Desmethylclom 540 mcg/L (200-600); Desmethylclomipramine 302 mcg/L (150-350)
== END 2022-04-24 08:01 | disposition home or self-care (01) ==
LOC: HO.LAB 08:00
PROVIDERS: PCP Nurse Practitioner Family; Visit Provider Psychiatry & Neurology Psychiatry
DX: F33.3 Major depressive disorder, recurrent, severe with psychotic symptoms (principal); G31.84 Mild cognitive impairment of uncertain or unknown etiology
CPT/HCPCS: 36415; 80053; 80335; 83036; 84439; 84443; 84481

== ENCOUNTER → 2022-07-26 13:19 | Outpatient (BNVA) | payer MEDICARE, SELFPAY | PROVIDERS: PCP Nurse Practitioner Family; Visit Provider Hospitalist | DX: J98.4 Other disorders of lung (principal); U07.1 COVID-19 | CPT/HCPCS: 99202 ==

== ENCOUNTER → 2022-07-30 13:33 | Outpatient (BNVA) | payer MEDICARE, SELFPAY | PROVIDERS: PCP Nurse Practitioner Family; Visit Provider Psychiatry & Neurology Psychiatry | DX: F43.10 Post-traumatic stress disorder, unspecified (principal); F42.9 Obsessive-compulsive disorder, unspecified; F33.2 Major depressive disorder, recurrent severe without psychotic features; J98.4 Other disorders of lung | CPT/HCPCS: 90833; 99212 ==

== ENCOUNTER 2022-09-14 15:36 | Emergency (ER) | payer MEDICARE, SELFPAY ==
[2022-09-14 15:38] VITALS: BP 124/81; PULSE 97; RESP 18; TEMP 36.7; O2SAT 98; BMI 32.8
--- NOTE | 2022-09-14 15:41 | ED.GENADULT ---
HPI - General Adult General Chief complaint: Upper Respiratory Symptoms <SHANT Russo - Last Filed: 09/14/22 15:45> Stated complaint: cough, wheezing <SHANT Russo - Last Filed: 09/14/22 15:45> Time Seen by Provider: 09/14/22 17:01 <SHANT Russo - Last Filed: 09/14/22 15:45> History of Present Illness HPI narrative: Patient complains of productive cough and runny nose starting 3-4 days ago, she has had no fever she has had no difficulty breathing, she gets some pain only when she coughs in her chest, no other chest pain, no shortness of breath no exertional symptoms no diaphoresis no vomiting <SHANT Lewis - Last Filed: 09/14/22 18:29> Related Data Home medications: Home Medications Medication Instructions Recorded Confirmed omeprazole magnesium 20 mg 20 mg PO DAILY 03/24/21 07/30/22 tablet,delayed release (Prilosec OTC) clomipramine 25 mg capsule 75 mg PO BEDTIME 07/26/22 07/30/22 quetiapine 100 mg tablet 200 mg PO BEDTIME 07/26/22 07/30/22 Previous Rx's Medication Instructions Recorded lorazepam 0.5 mg tablet 0.5 mg PO BID PRN Anxiety #0 tabs 10/23/21 paroxetine HCl 40 mg tablet 40 mg PO DAILY 90 days #90 tabs 07/23/22 fluticasone fur. 200 mcg-umeclid 1 inh inhalation DAILY 30 days #60 07/26/22 62.5 mcg-vilant 25 mcg ea inhalat.powder (Trelegy Ellipta) metformin 500 mg tablet,extended 500 mg PO QPM #90 tabs 07/30/22 release 24 hr clonazepam 1 mg tablet (Klonopin) 0.5 mg PO BID #60 tabs 08/21/22 aripiprazole 5 mg tablet (Abilify) 5 mg PO BEDTIME #90 tabs 08/24/22 propranolol 10 mg tablet 10 mg PO DAILY PRN Anxiety 14 days 09/04/22 #14 tabs doxycycline hyclate 100 mg capsule 100 mg PO BID 7 days #14 caps 09/14/22 <SHANT Russo - Last Filed: 09/14/22 15:45> Allergies/adverse reactions: Allergies Allergy/AdvReac Type Severity Reaction Status Date / Time shellfish derived Allergy Severe DIFFICULTY Verified 07/26/22 13:28 [SHELLFISH DERIVED] BREATHING pseudoephedrine Allergy Intermediate AGITATION Verified 07/26/22 13:28 [From SUDAFED] pregabalin [From Lyrica] Allergy Dizziness Verified 07/26/22 13:28 <SHANT Russo - Last Filed: 09/14/22 15:45> Review of Systems Review of Systems: Positive for runny nose and productive cough Negatives are no fever no chills no dizziness no weakness no fainting no feeling faint no headache no stiff neck no sore throat no difficulty breathing or swallowing no chest pain except with coughing no shortness of breath no diaphoresis no exertional symptoms no abdominal pain no nausea vomiting or diarrhea no dysuria no frequency no leg swelling no calf pain or swelling no skin rash <SHANT Lewis - Last Filed: 09/14/22 18:29> Yes all other systems are reviewed and are negative <SHANT Lewis - Last Filed: 09/14/22 18:29> [facility] Past Medical History Source: nursing notes reviewed <SHANT Lewis - Last Filed: 09/14/22 18:29> Medical History: Medical History (Updated 09/14/22 @ 18:14 by SHANT Lewis) Chronic restrictive lung disease COVID-19 GERD (gastroesophageal reflux disease) History of COVID-19 History of shingles IBS (irritable bowel syndrome) Small airways disease Stress incontinence <SHATN Russo - Last Filed: 09/14/22 15:45> Surgical History: Surgical History History of adenoidectomy History of appendectomy History of cholecystectomy Hx of tonsillectomy <SHANT Russo - Last Filed: 09/14/22 15:45> Social History Social History: Social History Household Members: Spouse, Family and Children Household Members Other:: N/A Housing: House Do you presently have visiting nurse or other home services: No Alcohol intake: never Patient Tobacco Use Status: Never used Tobacco e-Cigarette/Vaping Use: Never Used Second Hand Smoke Exposure: No Advance Directives: No Advance Directives Information Provided: No service: No Sexual orientation: Straight/Heterosexual <SHANT Russo - Last Filed: 09/14/22 15:45> Physical Exam ED Vital Signs: Vital Signs - 24 hr 09/14/22 15:38 Temperature 98.1 F Pulse Rate 97 Respiratory Rate 18 Blood Pressure 124/81 Pulse Oximetry 98 Oxygen Delivery Method Room Air BMI result Body Mass Index 32.8 <SHANT Russo - Last Filed: 09/14/22 15:45> Vital Signs - 24 hr 09/14/22 15:38 Temperature 98.1 F Pulse Rate 97 Respiratory Rate 18 Blood Pressure 124/81 Pulse Oximetry 98 Oxygen Delivery Method Room Air BMI result Body Mass Index 32.8 <SHANT Lweis - Last Filed: 09/14/22 18:29> General appearance comfortable no acute distress Eyes no redness or discharge, anicteric no pallor The nose no sinus tenderness The pharynx is clear without redness swelling or exudate membranes are moist Neck is supple Chest clear to auscultation bilateral no wheezes auscultated no adventitious sounds Heart no murmur Abdomen soft nontender Extremities no edema no calf tenderness no calf swelling Skin no rashes <SHANT Lewis - Last Filed: 09/14/22 18:29> Course Course Course Narrative: RME - 66 y/o female with history of restrictive lung disease 2/2 COVID-19, OCD, PTSD who presents to the ER for evaluation of 3-4 days of worsening cough, chest tightness associated with the coughing and SOB. She is now bringing up yellow phlegm. She just came [place] where her symptoms started. Low grade fevers and didnt sleep at all last night due to her cough. VSS, SpO2 98%. LLL rales noted with wet cough. Will check CXR, EKG, labs and viral swab. Stable to go back to the waiting room until a bed is available. <SHANT Russo - Last Filed: 09/14/22 15:45> RME - 66 y/o female with history of restrictive lung disease 2/2 COVID-19, OCD, PTSD who presents to the ER for evaluation of 3-4 days of worsening cough, chest tightness associated with the coughing and SOB. She is now bringing up yellow phlegm. She just came back from a [place] cruise where her symptoms started. Low grade fevers and didnt sleep at all last night due to her cough. VSS, SpO2 98%. LLL rales noted with wet cough. Will check CXR, EKG, labs and viral swab. Stable to go back to the waiting room until a bed is available. Chest x-ray showed old scarring but no acute pneumonia no acute consolidation no CHF EKG was a normal sinus rhythm no acute ST changes no acute ischemic changes, intervals were normal Labs were nondiagnostic including a normal BNP and a normal troponin Some elevations of AST ALT and ALP were noted and patient says they are consistent with previous and she is advised follow with her doctor to see if they need to be recheck, she has no GI symptoms no vomiting or diarrhea Well-appearing patient is diagnosed with bronchitis and was discharged <SHANT Lewis - Last Filed: 09/14/22 18:29> Medical Decision Making Lab Data Result Diagrams: : 09/14/22 16:58 09/14/22 16:58 <SHANT Russo - Last Filed: 09/14/22 15:45> Labs: Lab Results 09/14/22 09/14/22 09/14/22 Range/Units 16:58 16:58 16:58 WBC 6.7 (4.8-10.8) X10*3/uL RBC 4.60 (4.20-5.50) X10*6/uL Hgb 13.8 (12.0-16.0) g/dl Hct 43.0 (37.0-47.0) % MCV 93.5 (80.0-98.0) fL MCH 30.0 (27.0-33.0) pg MCHC 32.1 (31.0-35.0) g/dl RDW 13.7 (11.0-16.0) % Plt Count 195 (160-400) X10*3/uL MPV 10.9 (9.4-12.3) fL Immature Gran % (Auto) 0.1 (0.0-0.4) % Neut % (Auto) 77.0 H (45-73) % Lymph % (Auto) 11.7 L (20-40) % Cotton % (Auto) 10.5 (2-11) % Eos % (Auto) 0.4 (0-4) % Baso % (Auto) 0.3 (0-2) % Lymph # (Auto) 0.8 L (1.2-4.9) X10*3/uL Cotton # (Auto) 0.7 (0.1-1.2) X10*3/uL Eos # (Auto) 0.0 (0.0-0.4) X10*3/uL Baso # (Auto) 0.0 (0.0-0.2) X10*3/uL Abs Immat Gran (auto) 0.01 (0.00-0.03) X10*3/uL Absolute Neuts (auto) 5.1 (2.0-8.3) x10*3/uL Absolute Nucleated RBC 0.000 (0.0-0.012) X10*3/uL Nucleated RBC % (auto) 0.0 (0.0-0.2) /100WBC Sodium 140 (135-145) mmol/L Potassium 4.3 (3.3-5.1) mmol/L Chloride 102 (96-108) mmol/L Carbon Dioxide 30 H (22-29) mmol/L Anion Gap 12 (12-20) BUN 16 (9-16) mg/dL Creatinine 0.88 (0.5-1.4) mg/dL Estim Creat Clear Calc 75.5 Estimated GFR > 60 Random Glucose 94 (60-115) mg/dL Calcium 9.6 (8.4-10.2) mg/dL Magnesium 2.2 (1.6-2.6) mg/dL Total Bilirubin 0.6 (0.0-1.0) mg/dL Direct Bilirubin 0.2 (0.0-0.5) mg/dL AST 56 H (5-31) U/L ALT 93 H (0-31) U/L Alkaline Phosphatase 146 H (39-117) U/L Troponin I High Sens < 3.5 (<3.5-17.0) ng/L B-Natriuretic Peptide (<100) pg/mL Total Protein 6.9 (6.5-8.0) g/dL Albumin 4.2 (3.5-5.0) g/dL Influenza Type A (PCR) (Negative) Influenza Type B (PCR) (Negative) RSV RNA Qual (PCR) (Negative) SARS-CoV-2 RNA (RT-PCR) (Negative) 09/14/22 09/14/22 Range/Units 16:58 16:58 WBC (4.8-10.8) X10*3/uL RBC (4.20-5.50) X10*6/uL Hgb (12.0-16.0) g/dl Hct (37.0-47.0) % MCV (80.0-98.0) fL MCH (27.0-33.0) pg MCHC (31.0-35.0) g/dl RDW (11.0-16.0) % Plt Count (160-400) X10*3/uL MPV (9.4-12.3) fL Immature Gran % (Auto) (0.0-0.4) % Neut % (Auto) (45-73) % Lymph % (Auto) (20-40) % Cotton % (Auto) (2-11) % Eos % (Auto) (0-4) % Baso % (Auto) (0-2) % Lymph # (Auto) (1.2-4.9) X10*3/uL Cotton # (Auto) (0.1-1.2) X10*3/uL Eos # (Auto) (0.0-0.4) X10*3/uL Baso # (Auto) (0.0-0.2) X10*3/uL Abs Immat Gran (auto) (0.00-0.03) X10*3/uL Absolute Neuts (auto) (2.0-8.3) x10*3/uL Absolute Nucleated RBC (0.0-0.012) X10*3/uL Nucleated RBC % (auto) (0.0-0.2) /100WBC Sodium (135-145) mmol/L Potassium (3.3-5.1) mmol/L Chloride (96-108) mmol/L Carbon Dioxide (22-29) mmol/L Anion Gap (12-20) BUN (9-16) mg/dL Creatinine (0.5-1.4) mg/dL Estim Creat Clear Calc Estimated GFR Random Glucose (60-115) mg/dL Calcium (8.4-10.2) mg/dL Magnesium (1.6-2.6) mg/dL Total Bilirubin (0.0-1.0) mg/dL Direct Bilirubin (0.0-0.5) mg/dL AST (5-31) U/L ALT (0-31) U/L Alkaline Phosphatase (39-117) U/L Troponin I High Sens (<3.5-17.0) ng/L B-Natriuretic Peptide < 10 (<100) pg/mL Total Protein (6.5-8.0) g/dL Albumin (3.5-5.0) g/dL Influenza Type A (PCR) NEGATIVE (Negative) Influenza Type B (PCR) NEGATIVE (Negative) RSV RNA Qual (PCR) NEGATIVE (Negative) SARS-CoV-2 RNA (RT-PCR) NEGATIVE (Negative) <SHANT Russo - Last Filed: 09/14/22 15:45> Lab Results 09/14/22 09/14/22 09/14/22 Range/Units 16:58 16:58 16:58 WBC 6.7 (4.8-10.8) X10*3/uL RBC 4.60 (4.20-5.50) X10*6/uL Hgb 13.8 (12.0-16.0) g/dl Hct 43.0 (37.0-47.0) % MCV 93.5 (80.0-98.0) fL MCH 30.0 (27.0-33.0) pg MCHC 32.1 (31.0-35.0) g/dl RDW 13.7 (11.0-16.0) % Plt Count 195 (160-400) X10*3/uL MPV 10.9 (9.4-12.3) fL Immature Gran % (Auto) 0.1 (0.0-0.4) % Neut % (Auto) 77.0 H (45-73) % Lymph % (Auto) 11.7 L (20-40) % Cotton % (Auto) 10.5 (2-11) % Eos % (Auto) 0.4 (0-4) % Baso % (Auto) 0.3 (0-2) % Lymph # (Auto) 0.8 L (1.2-4.9) X10*3/uL Cotton # (Auto) 0.7 (0.1-1.2) X10*3/uL Eos # (Auto) 0.0 (0.0-0.4) X10*3/uL Baso # (Auto) 0.0 (0.0-0.2) X10*3/uL Abs Immat Gran (auto) 0.01 (0.00-0.03) X10*3/uL Absolute Neuts (auto) 5.1 (2.0-8.3) x10*3/uL Absolute Nucleated RBC 0.000 (0.0-0.012) X10*3/uL Nucleated RBC % (auto) 0.0 (0.0-0.2) /100WBC Sodium 140 (135-145) mmol/L Potassium 4.3 (3.3-5.1) mmol/L Chloride 102 (96-108) mmol/L Carbon Dioxide 30 H (22-29) mmol/L Anion Gap 12 (12-20) BUN 16 (9-16) mg/dL Creatinine 0.88 (0.5-1.4) mg/dL Estim Creat Clear Calc 75.5 Estimated GFR > 60 Random Glucose 94 (60-115) mg/dL Calcium 9.6 (8.4-10.2) mg/dL Magnesium 2.2 (1.6-2.6) mg/dL Total Bilirubin 0.6 (0.0-1.0) mg/dL Direct Bilirubin 0.2 (0.0-0.5) mg/dL AST 56 H (5-31) U/L ALT 93 H (0-31) U/L Alkaline Phosphatase 146 H (39-117) U/L Troponin I High Sens < 3.5 (<3.5-17.0) ng/L B-Natriuretic Peptide (<100) pg/mL Total Protein 6.9 (6.5-8.0) g/dL Albumin 4.2 (3.5-5.0) g/dL Influenza Type A (PCR) (Negative) Influenza Type B (PCR) (Negative) RSV RNA Qual (PCR) (Negative) SARS-CoV-2 RNA (RT-PCR) (Negative) 09/14/22 09/14/22 Range/Units 16:58 16:58 WBC (4.8-10.8) X10*3/uL RBC (4.20-5.50) X10*6/uL Hgb (12.0-16.0) g/dl Hct (37.0-47.0) % MCV (80.0-98.0) fL MCH (27.0-33.0) pg MCHC (31.0-35.0) g/dl RDW (11.0-16.0) % Plt Count (160-400) X10*3/uL MPV (9.4-12.3) fL Immature Gran % (Auto) (0.0-0.4) % Neut % (Auto) (45-73) % Lymph % (Auto) (20-40) % Cotton % (Auto) (2-11) % Eos % (Auto) (0-4) % Baso % (Auto) (0-2) % Lymph # (Auto) (1.2-4.9) X10*3/uL Cotton # (Auto) (0.1-1.2) X10*3/uL Eos # (Auto) (0.0-0.4) X10*3/uL Baso # (Auto) (0.0-0.2) X10*3/uL Abs Immat Gran (auto) (0.00-0.03) X10*3/uL Absolute Neuts (auto) (2.0-8.3) x10*3/uL Absolute Nucleated RBC (0.0-0.012) X10*3/uL Nucleated RBC % (auto) (0.0-0.2) /100WBC Sodium (135-145) mmol/L Potassium (3.3-5.1) mmol/L Chloride (96-108) mmol/L Carbon Dioxide (22-29) mmol/L Anion Gap (12-20) BUN (9-16) mg/dL Creatinine (0.5-1.4) mg/dL Estim Creat Clear Calc Estimated GFR Random Glucose (60-115) mg/dL Calcium (8.4-10.2) mg/dL Magnesium (1.6-2.6) mg/dL Total Bilirubin (0.0-1.0) mg/dL Direct Bilirubin (0.0-0.5) mg/dL AST (5-31) U/L ALT (0-31) U/L Alkaline Phosphatase (39-117) U/L Troponin I High Sens (<3.5-17.0) ng/L B-Natriuretic Peptide < 10 (<100) pg/mL Total Protein (6.5-8.0) g/dL Albumin (3.5-5.0) g/dL Influenza Type A (PCR) NEGATIVE (Negative) Influenza Type B (PCR) NEGATIVE (Negative) RSV RNA Qual (PCR) NEGATIVE (Negative) SARS-CoV-2 RNA (RT-PCR) NEGATIVE (Negative) <SHANT Lewis - Last Filed: 09/14/22 18:29> Discharge Plan Discharge Clinical Impression: Bronchitis <SHANT Russo - Last Filed: 09/14/22 15:45> Patient Disposition: Home, Self-Care <SHANT Russo - Last Filed: 09/14/22 15:45> Additional Instructions: Use doxycycline antibiotic for bronchitis Return any time for difficulty breathing any worse condition or any concerns Your chest x-ray did not show any pneumonia, flu and COVID tests were negative, lab work did not reveal any worrisome abnormality <SHANT Russo - Last Filed: 09/14/22 15:45> Prescriptions: New doxycycline hyclate 100 mg capsule 100 mg PO BID 7 Days Qty: 14 0RF No Action paroxetine HCl 40 mg tablet 40 mg PO DAILY 90 Days Qty: 90 0RF clonazepam [Klonopin] 1 mg tablet 0.5 mg PO BID Qty: 60 2RF Rx Instructions: Take 1/2 tab BID aripiprazole [Abilify] 5 mg tablet 5 mg PO BEDTIME Qty: 90 1RF Label Comments: Patient takes at HS propranolol 10 mg tablet 10 mg PO DAILY PRN (Reason: Anxiety) 14 Days Qty: 14 0RF omeprazole magnesium [Prilosec OTC] 20 mg Tablet,Delayed Release (Dr/Ec) 20 mg PO DAILY lorazepam 0.5 mg Tablet 0.5 mg PO BID PRN (Reason: Anxiety) Qty: 0 0RF Rx Instructions: for severe agitation /anxiety may take up to 2 mg 1 x day for rescue metformin 500 mg tablet extended release 24 hr 500 mg PO QPM Qty: 90 1RF quetiapine 100 mg tablet 200 mg PO BEDTIME Rx Instructions: may take extra 1/2-1 up tp 2 x day clomipramine 25 mg capsule 75 mg PO BEDTIME Trelegy Ellipta 200-62.5-25 mcg blister with device 1 inh inhalation DAILY 30 Days Qty: 60 12RF <SHANT Russo - Last Filed: 09/14/22 15:45>
[2022-09-14 17:09] LABS: MANUAL DIFF FLAG NO
[2022-09-14 17:21] LABS: Basophils Percent Auto 0.3 % (0-2); Eosinophils Percent Auto 0.4 % (0-4); Hemoglobin 13.8 g/dl (12.0-16.0); Imm Gran Abs Auto 0.01 X10*3/uL (0.00-0.03); Imm Gran Pct Auto 0.1 % (0.0-0.4); Lymphocytes Absolute Auto 0.8 X10*3/uL (1.2-4.9); Lymphocytes Percent Auto 11.7 % (20-40); Mean Corpuscular HGB Conc 32.1 g/dl (31.0-35.0); Mean Corpuscular Volume 93.5 fL (80.0-98.0); Mean Platelet Volume 10.9 fL (9.4-12.3); Monocytes Absolute Auto 0.7 X10*3/uL (0.1-1.2); Monocytes Percent Auto 10.5 % (2-11); Neutrophils Absolute Auto 5.1 x10*3/uL (2.0-8.3); Platelet Count 195 X10*3/uL (160-400); Red Cell Distribution Width 13.7 % (11.0-16.0); White Blood Count 6.7 X10*3/uL (4.8-10.8)
[2022-09-14 17:34] LABS: Alanine Aminotransferase 93 U/L (0-31); Albumin Level 4.2 g/dL (3.5-5.0); Alkaline Phosphatase 146 U/L (39-117); Anion Gap 12 (12-20); Aspartate Amino Transferase 56 U/L (5-31); Bilirubin Direct 0.2 mg/dL (0.0-0.5); Bilirubin Total 0.6 mg/dL (0.0-1.0); Blood Urea Nitrogen 16 mg/dL (9-16); Calcium 9.6 mg/dL (8.4-10.2); Carbon Dioxide 30 mmol/L (22-29); Chloride 102 mmol/L (96-108); Creatinine Clr Calc Pharmacy 75.5; Estimated Glomerular Filt Rate > 60; Glucose Random 94 mg/dL (60-115); Magnesium 2.2 mg/dL (1.6-2.6); Potassium 4.3 mmol/L (3.3-5.1); Sodium 140 mmol/L (135-145); Total Protein 6.9 g/dL (6.5-8.0)
[2022-09-14 17:37] LABS: B Type Natriuretic Peptide < 10 pg/mL (<100); Troponin-I High Sensitivity < 3.5 ng/L (<3.5-17.0)
[2022-09-14 17:50] LABS: Influenza A PCR NEGATIVE (Negative); Influenza B PCR NEGATIVE (Negative); Resp Syncy Virus RNA Qual PCR NEGATIVE (Negative); SARS COV2 PCR INHOUSE NEGATIVE (Negative)
== END 2022-09-14 18:56 | disposition home or self-care (01) ==
PROVIDERS: Physician Assistant; Emergency Provider Emergency Medicine; PCP Nurse Practitioner Family
DX: J40 Bronchitis, not specified as acute or chronic (principal); R05.9 Cough, unspecified; R09.89 Other specified symptoms and signs involving the circulatory and respiratory systems; R06.02 Shortness of breath; Z20.822 Contact with and (suspected) exposure to COVID-19; Z79.899 Other long term (current) drug therapy
CPT/HCPCS: 0241U; 36415; 71046; 80048; 80076; 83735; 83880; 84484; 85025; 93005; 99283

== ENCOUNTER → 2022-09-26 14:04 | Outpatient (BNVA) | payer MEDICARE, SELFPAY | PROVIDERS: PCP Nurse Practitioner Family; Visit Provider Psychiatry & Neurology Psychiatry | DX: F43.10 Post-traumatic stress disorder, unspecified (principal); F42.9 Obsessive-compulsive disorder, unspecified; F32.5 Major depressive disorder, single episode, in full remission | CPT/HCPCS: 90833; 99212 ==

== ENCOUNTER → 2022-10-02 14:22 | Outpatient (BNVA) | payer MEDICARE, SELFPAY | PROVIDERS: PCP Nurse Practitioner Family; Visit Provider Hospitalist | DX: J98.4 Other disorders of lung (principal); K75.9 Inflammatory liver disease, unspecified; Z86.16 Personal history of COVID-19; Z79.899 Other long term (current) drug therapy | CPT/HCPCS: 99212 ==

== ENCOUNTER 2022-10-29 07:42 | Outpatient (REF) | payer MEDICARE, SELFPAY ==
--- NOTE | ~2022-10-29 | US_ITS ---
EXAMINATION: US ABDOMEN COMPLETE CLINICAL INFORMATION: Inflammatory liver disease, unspecified. COMPARISON: None TECHNIQUE: Real-time imaging of the abdominal viscera. FINDINGS: PANCREAS: The pancreas appears unremarkable, without masses or ductal dilatation, with the exception of the tail which is obscured by bowel gas. ABDOMINAL AORTA: The proximal, mid, and distal segments are normal in caliber. INFERIOR VENA CAVA: Visualized portions are normal. LIVER: The liver is normal in size. The liver contour is normal. There is diffuse increased liver parenchymal echogenicity, consistent with hepatic steatosis. No focal hepatic lesion. There is no intrahepatic biliary duct dilatation seen. GALLBLADDER: Surgically absent. COMMON BILE DUCT: Normal in caliber measuring 0.7 cm in diameter. RIGHT KIDNEY: Normal. No hydronephrosis. No renal calculi or focal parenchymal lesions. The kidney measures 9.1 cm in maximum dimension. LEFT KIDNEY: No hydronephrosis or renal calculi. The kidney measures 11.9 cm in maximum dimension. A lower pole 1.9 cm benign Bosniak class I renal cyst is noted which needs no additional imaging or follow-up. No solid renal masses. SPLEEN: Normal. The spleen measures 9.9 cm in maximum dimension. FREE FLUID: None. US/US abdomen complete IMPRESSION: Hepatic steatosis.
== END 2022-10-29 07:43 | disposition home or self-care (01) ==
LOC: HO.US 07:42
PROVIDERS: PCP Nurse Practitioner Family; Visit Provider Hospitalist
DX: K75.9 Inflammatory liver disease, unspecified (principal)
CPT/HCPCS: 76700

== ENCOUNTER → 2022-12-25 14:55 | Outpatient (BNVA) | payer MEDICARE, SELFPAY | PROVIDERS: PCP Nurse Practitioner Family; Visit Provider Psychiatry & Neurology Psychiatry | DX: F43.10 Post-traumatic stress disorder, unspecified (principal); F33.2 Major depressive disorder, recurrent severe without psychotic features; F42.9 Obsessive-compulsive disorder, unspecified | CPT/HCPCS: 90833; 99212 ==

== ENCOUNTER 2022-12-27 09:03 | Outpatient (REF) | payer MEDICARE, SELFPAY ==
[2023-01-03 00:10] LABS: Clomipramine 287 mcg/L (50-250); Desmethylclomipramine 349 mcg/L (150-350)
== END 2022-12-27 09:04 | disposition home or self-care (01) ==
LOC: HO.LAB 09:03
PROVIDERS: PCP Nurse Practitioner Family; Visit Provider Psychiatry & Neurology Psychiatry
DX: Z13.89 Encounter for screening for other disorder (principal)
CPT/HCPCS: 36415; 80335

== ENCOUNTER 2022-12-28 16:22 | Inpatient (IN) | payer MEDICARE, SELFPAY ==
[2022-12-28 16:27] VITALS: BP 145/58; PULSE 79; RESP 16; TEMP 36.6; O2SAT 99; BMI 31.3
--- NOTE | 2022-12-28 16:27 | ED_ITS ---
HPI - General Adult General Chief complaint: Psychiatric Symptoms <SHANT Cope - Last Filed: 12/28/22 16:27> Stated complaint: crisis. <SHANT Cope - Last Filed: 12/28/22 16:27> Time Seen by Provider: 12/28/22 17:11 <SHANT Cope - Last Filed: 12/28/22 16:27> Source: patient <Helen Miller MD - Last Filed: 12/28/22 18:10> Mode of arrival: ambulatory <Helen Miller MD - Last Filed: 12/28/22 18:10> Limitations: no limitations <Helen Miller MD - Last Filed: 12/28/22 18:10> History of Present Illness HPI narrative: Patient comes to the emergency room complaining of depression. Patient was seen by Dr. Williamson, patient was asked to come to the emergency room for further evaluation. Patient states that her depression has been increasing, denies suicidal or homicidal ideation. Patient states that she is hoping that she can be evaluated be discharged home. <Helen Miller MD - Last Filed: 12/28/22 18:10> Related Data Home medications: Home Medications Medication Instructions Recorded Confirmed omeprazole magnesium 20 mg 20 mg PO DAILY 03/24/21 12/28/22 tablet,delayed release (Prilosec OTC) clonazepam 0.5 mg tablet 0.5 mg PO QAM 12/28/22 12/28/22 clonazepam 1 mg tablet (Klonopin) 1 mg PO BEDTIME 12/28/22 12/28/22 fluticasone fur. 200 mcg-umeclid 1 ea inhalation DAILY 12/28/22 12/28/22 62.5 mcg-vilant 25 mcg inhalat.powder (Trelegy Ellipta) propranolol 10 mg tablet 10 mg PO DAILY 12/28/22 12/28/22 quetiapine 100 mg tablet 250 mg PO BEDTIME 12/28/22 12/28/22 quetiapine 25 mg tablet 25 mg PO Q8H PRN anxiety 12/28/22 12/28/22 Previous Rx's Medication Instructions Recorded paroxetine HCl 40 mg tablet 40 mg PO DAILY 90 days #90 tabs 09/26/22 albuterol sulfate 90 mcg/actuation 2 inh inhalation Q6H PRN shortness 10/02/22 aerosol inhaler of breath or wheezing 30 days #18 grams clomipramine 25 mg capsule 75 mg PO BEDTIME #270 caps 12/20/22 <SHANT Cope - Last Filed: 12/28/22 16:27> Allergies/adverse reactions: Allergies Allergy/AdvReac Type Severity Reaction Status Date / Time shellfish derived Allergy Severe DIFFICULTY Verified 10/02/22 14:33 [SHELLFISH DERIVED] BREATHING pseudoephedrine Allergy Intermediate AGITATION Verified 10/02/22 14:33 [From SUDAFED] pregabalin [From Lyrica] Allergy Dizziness Verified 10/02/22 14:33 <SHANT Cope - Last Filed: 12/28/22 16:27> Review of Systems Review of Systems: Constitutional : No Weight loss, No Fever, No Chills, No Night Sweats, No Fatigue, No Malaise ENT/Mouth : No Hearing loss, No Ear Pain, No Nasal Congestion, No Sinus Pain, No Hoarseness, No sore throat, No Rhinorrhea, No Swallowing Difficulty Eyes: No Eye Pain, No Swelling, No Redness, No Foreign Body, No Discharge, No Vision Changes Cardiovascular : No Chest Pain, No SOB, No Dyspnea on Exertion, No Orthopnea, No Edema, No Palpitations Respiratory : No Cough, No Sputum, No Wheezing, No Smoke Exposure, No Dyspnea Gastrointestinal : No Nausea, No Vomiting, No Diarrhea, No Constipation, No abdominal Pain, No Hematochezia, No Melena Genitourinary : no irregular bleeding, No Dysuria, No Urinary Frequency, No Hematuria, No Urinary Incontinence, No Urgency, No Flank Pain, No Urinary Flow Changes, No Hesitancy Musculoskeletal : No joint pain, No Myalgias, No Joint Swelling Skin : No Skin Lesions, No rash Neuro : No Weakness, No Numbness, No Paresthesias, No Loss of Consciousness, No Dizziness, No Headache Psych : No Anxiety/Panic, complaining of worsening depression, denies suicidal or homicidal ideation Heme/Lymph: No Bruising, No Bleeding,No Lymphadenopathy Endocrine : No Polyuria, No Polydipsia, No Temperature Intolerance <Helen Miller MD - Last Filed: 12/28/22 18:10> [facility] Past Medical History Medical History: Medical History Chronic restrictive lung disease COVID-19 GERD (gastroesophageal reflux disease) Hepatitis History of COVID-19 History of shingles IBS (irritable bowel syndrome) Small airways disease Stress incontinence <SHANT Cope - Last Filed: 12/28/22 16:27> Surgical History: Surgical History History of adenoidectomy History of appendectomy History of cholecystectomy Hx of tonsillectomy <SHANT Cope - Last Filed: 12/28/22 16:27> Social History Social History: Social History Household Members: Spouse and Children Household Members Other:: N/A Housing: House Do you presently have visiting nurse or other home services: No Alcohol intake: never Patient Tobacco Use Status: Never used Tobacco e-Cigarette/Vaping Use: Never Used Second Hand Smoke Exposure: No Advance Directives: No Advance Directives Information Provided: Yes service: No Sexual orientation: Straight/Heterosexual <SHANT Cope - Last Filed: 12/28/22 16:27> Physical Exam ED Vital Signs: Vital Signs - 24 hr 12/28/22 16:27 Temperature 97.9 F Pulse Rate 79 Respiratory Rate 16 Blood Pressure 145/58 H Pulse Oximetry 99 Oxygen Delivery Method Room Air BMI result Body Mass Index 31.3 <SHANT Cope - Last Filed: 12/28/22 16:27> Vital Signs - 24 hr 12/28/22 16:27 Temperature 97.9 F Pulse Rate 79 Respiratory Rate 16 Blood Pressure 145/58 H Pulse Oximetry 99 Oxygen Delivery Method Room Air BMI result Body Mass Index 31.3 <Helen Miller MD - Last Filed: 12/28/22 18:10> Const Other: Appearance: Alert. Oriented X3. No acute distress. Eyes: Pupils equal, round and reactive to light. ENT: Pharynx normal. Neck: Normal inspection. Neck supple. No lymph nodes noted. No crepitus CVS: Normal heart rate and rhythm. Pulses normal. Normal S1 and S2 Respiratory: No respiratory distress. Breath sounds normal. No Wheezing. No rales Abdomen: Soft and nontender. No rigidity. No distention. Skin: Skin warm and dry. Normal skin color. Normal skin turgor. Extremities: No lower extremity edema. No Lacerations. No Rash Neuro: Oriented X 3. No motor deficit. No sensory deficit. Moving all extremities. No slurred speech. CN 2 through 12 grossly intact Psych: calm, cooperative, a bit teary, seems depressed <Helen Miller MD - Last Filed: 12/28/22 18:10> Course Course Course Narrative: RME performed by Frances Lal PA-C. Patient is a 67 year old assigned female at presenting to the emergency department with worsening depression. Labs and swab ordered. Patient placed back in the POD. <SHANT Cope - Last Filed: 12/28/22 16:27> Medical Decision Making Medical Decision Making MDM Narrative: -labs pending -care consult pending -physician observation started at 18:09 <Helen Miller MD - Last Filed: 12/28/22 18:10> Lab Data Result Diagrams: 12/28/22 17:51 12/28/22 17:51 <SHANT Cope - Last Filed: 12/28/22 16:27> Labs: Lab Results 12/28/22 12/28/22 12/28/22 Range/Units 17:21 17:21 17:21 WBC (4.8-10.8) X10*3/uL RBC (4.20-5.50) X10*6/uL Hgb (12.0-16.0) g/dl Hct (37.0-47.0) % MCV (80.0-98.0) fL MCH (27.0-33.0) pg MCHC (31.0-35.0) g/dl RDW (11.0-16.0) % Plt Count (160-400) X10*3/uL MPV (9.4-12.3) fL Immature Gran % (Auto) (0.0-0.4) % Neut % (Auto) (45-73) % Lymph % (Auto) (20-40) % [place] % (Auto) (2-11) % Eos % (Auto) (0-4) % Baso % (Auto) (0-2) % Lymph # (Auto) (1.2-4.9) X10*3/uL [place] # (Auto) (0.1-1.2) X10*3/uL Eos # (Auto) (0.0-0.4) X10*3/uL Baso # (Auto) (0.0-0.2) X10*3/uL Abs Immat Gran (auto) (0.00-0.03) X10*3/uL Absolute Neuts (auto) (2.0-8.3) x10*3/uL Absolute Nucleated RBC (0.0-0.012) X10*3/uL Nucleated RBC % (auto) (0.0-0.2) /100WBC Urine Color Yellow Urine Appearance Clear Urine pH 7.0 (5.0-9.0) Ur Specific [place] 1.015 (1.005-1.025) Urine Protein Negative (Neg-Trace) mg/dL Urine Glucose (UA) Negative (Negative) mg/dL Urine Ketones Negative (Negative) mg/dL Urine Blood Negative (Negative) Urine Nitrite Negative (Negative) Ur Leukocyte Esterase Negative (Negative) Urine Test NEGATIVE (NEGATIVE) COVID-19 (THANH) Negative (Negative) COVID-19 Clin Com See Note 12/28/22 Range/Units 17:51 WBC 7.4 (4.8-10.8) X10*3/uL RBC 4.31 (4.20-5.50) X10*6/uL Hgb 12.9 (12.0-16.0) g/dl Hct 40.3 (37.0-47.0) % MCV 93.5 (80.0-98.0) fL MCH 29.9 (27.0-33.0) pg MCHC 32.0 (31.0-35.0) g/dl RDW 13.5 (11.0-16.0) % Plt Count 208 (160-400) X10*3/uL MPV 11.7 (9.4-12.3) fL Immature Gran % (Auto) 0.1 (0.0-0.4) % Neut % (Auto) 61.2 (45-73) % Lymph % (Auto) 25.4 (20-40) % [place] % (Auto) 8.7 (2-11) % Eos % (Auto) 3.9 (0-4) % Baso % (Auto) 0.7 (0-2) % Lymph # (Auto) 1.9 (1.2-4.9) X10*3/uL [place] # (Auto) 0.7 (0.1-1.2) X10*3/uL Eos # (Auto) 0.3 (0.0-0.4) X10*3/uL Baso # (Auto) 0.1 (0.0-0.2) X10*3/uL Abs Immat Gran (auto) 0.01 (0.00-0.03) X10*3/uL Absolute Neuts (auto) 4.6 (2.0-8.3) x10*3/uL Absolute Nucleated RBC 0.000 (0.0-0.012) X10*3/uL Nucleated RBC % (auto) 0.0 (0.0-0.2) /100WBC Urine Color Urine Appearance Urine pH (5.0-9.0) Ur Specific [place] (1.005-1.025) Urine Protein (Neg-Trace) mg/dL Urine Glucose (UA) (Negative) mg/dL Urine Ketones (Negative) mg/dL Urine Blood (Negative) Urine Nitrite (Negative) Ur Leukocyte Esterase (Negative) Urine Test (NEGATIVE) COVID-19 (THANH) (Negative) COVID-19 Clin Com <SHANT Cope - Last Filed: 12/28/22 16:27> Lab Results 12/28/22 12/28/22 12/28/22 Range/Units 17:21 17:21 17:21 WBC (4.8-10.8) X10*3/uL RBC (4.20-5.50) X10*6/uL Hgb (12.0-16.0) g/dl Hct (37.0-47.0) % MCV (80.0-98.0) fL MCH (27.0-33.0) pg MCHC (31.0-35.0) g/dl RDW (11.0-16.0) % Plt Count (160-400) X10*3/uL MPV (9.4-12.3) fL Immature Gran % (Auto) (0.0-0.4) % Neut % (Auto) (45-73) % Lymph % (Auto) (20-40) % [place] % (Auto) (2-11) % Eos % (Auto) (0-4) % Baso % (Auto) (0-2) % Lymph # (Auto) (1.2-4.9) X10*3/uL [place] # (Auto) (0.1-1.2) X10*3/uL Eos # (Auto) (0.0-0.4) X10*3/uL Baso # (Auto) (0.0-0.2) X10*3/uL Abs Immat Gran (auto) (0.00-0.03) X10*3/uL Absolute Neuts (auto) (2.0-8.3) x10*3/uL Absolute Nucleated RBC (0.0-0.012) X10*3/uL Nucleated RBC % (auto) (0.0-0.2) /100WBC Urine Color Yellow Urine Appearance Clear Urine pH 7.0 (5.0-9.0) Ur Specific [place] 1.015 (1.005-1.025) Urine Protein Negative (Neg-Trace) mg/dL Urine Glucose (UA) Negative (Negative) mg/dL Urine Ketones Negative (Negative) mg/dL Urine Blood Negative (Negative) Urine Nitrite Negative (Negative) Ur Leukocyte Esterase Negative (Negative) Urine Test NEGATIVE (NEGATIVE) COVID-19 (THANH) Negative (Negative) COVID-19 Clin Com See Note 12/28/22 Range/Units 17:51 WBC 7.4 (4.8-10.8) X10*3/uL RBC 4.31 (4.20-5.50) X10*6/uL Hgb 12.9 (12.0-16.0) g/dl Hct 40.3 (37.0-47.0) % MCV 93.5 (80.0-98.0) fL MCH 29.9 (27.0-33.0) pg MCHC 32.0 (31.0-35.0) g/dl RDW 13.5 (11.0-16.0) % Plt Count 208 (160-400) X10*3/uL MPV 11.7 (9.4-12.3) fL Immature Gran % (Auto) 0.1 (0.0-0.4) % Neut % (Auto) 61.2 (45-73) % Lymph % (Auto) 25.4 (20-40) % [place] % (Auto) 8.7 (2-11) % Eos % (Auto) 3.9 (0-4) % Baso % (Auto) 0.7 (0-2) % Lymph # (Auto) 1.9 (1.2-4.9) X10*3/uL [place] # (Auto) 0.7 (0.1-1.2) X10*3/uL Eos # (Auto) 0.3 (0.0-0.4) X10*3/uL Baso # (Auto) 0.1 (0.0-0.2) X10*3/uL Abs Immat Gran (auto) 0.01 (0.00-0.03) X10*3/uL Absolute Neuts (auto) 4.6 (2.0-8.3) x10*3/uL Absolute Nucleated RBC 0.000 (0.0-0.012) X10*3/uL Nucleated RBC % (auto) 0.0 (0.0-0.2) /100WBC Urine Color Urine Appearance Urine pH (5.0-9.0) Ur Specific [place] (1.005-1.025) Urine Protein (Neg-Trace) mg/dL Urine Glucose (UA) (Negative) mg/dL Urine Ketones (Negative) mg/dL Urine Blood (Negative) Urine Nitrite (Negative) Ur Leukocyte Esterase (Negative) Urine Test (NEGATIVE) COVID-19 (THANH) (Negative) COVID-19 Clin Com <Helen Miller MD - Last Filed: 12/28/22 18:10> Discharge Plan Discharge Clinical Impression: Depression <SHANT Cope - Last Filed: 12/28/22 16:27> Patient Disposition: Still a Patient <SHANT Cope - Last Filed: 12/28/22 16:27> Prescriptions: No Action clomipramine 25 mg capsule 75 mg PO BEDTIME Qty: 270 3RF omeprazole magnesium [Prilosec OTC] 20 mg Tablet,Delayed Release (Dr/Ec) 20 mg PO DAILY quetiapine 100 mg tablet 250 mg PO BEDTIME Rx Instructions: may take extra 1/2-1 up tp 2 x day quetiapine 25 mg tablet 25 mg PO Q8H PRN (Reason: anxiety) Rx Instructions: max 3 x 24 hrs propranolol 10 mg tablet 10 mg PO DAILY clonazepam [Klonopin] 1 mg tablet 1 mg PO BEDTIME clonazepam 0.5 mg Tablet 0.5 mg PO QAM Trelegy Ellipta 200-62.5-25 mcg blister with device 1 ea inhalation DAILY paroxetine HCl 40 mg tablet 40 mg PO DAILY 90 Days Qty: 90 1RF albuterol sulfate 90 mcg/actuation HFA aerosol inhaler 2 inh inhalation Q6H PRN (Reason: shortness of breath or wheezing) 30 Days Qty: 18 12RF <SHANT Cope - Last Filed: 12/28/22 16:27>
[2022-12-28 17:31] LABS: Appearance Urine Clear; Color Urine Yellow; Glucose Urine UA Negative (Negative); Leukocyte Esterase Urine Negative (Negative); Nitrite Urine Negative (Negative); Specific Gravity - Urine 1.015 (1.005-1.025); Urine Blood Negative (Negative); Urine Ketones Negative (Negative); Urine Protein Negative (Neg-Trace)
[2022-12-28 17:39] LABS: UPreg QC Valid YES; Urine Pregnancy NEGATIVE (NEGATIVE)
[2022-12-28 17:44] LABS: COVID-19 Test Negative (Negative); IDNOW Serial# 08D9AD1C
[2022-12-28 17:56] LABS: MANUAL DIFF FLAG NO
[2022-12-28 17:58] LABS: Basophils Absolute Auto 0.1 X10*3/uL (0.0-0.2); Basophils Percent Auto 0.7 % (0-2); Eosinophils Absolute Auto 0.3 X10*3/uL (0.0-0.4); Eosinophils Percent Auto 3.9 % (0-4); Hematocrit 40.3 % (37.0-47.0); Hemoglobin 12.9 g/dl (12.0-16.0); Imm Gran Abs Auto 0.01 X10*3/uL (0.00-0.03); Imm Gran Pct Auto 0.1 % (0.0-0.4); Lymphocytes Absolute Auto 1.9 X10*3/uL (1.2-4.9); Lymphocytes Percent Auto 25.4 % (20-40); Mean Corpuscular Hemoglobin 29.9 pg (27.0-33.0); Mean Corpuscular Volume 93.5 fL (80.0-98.0); Mean Platelet Volume 11.7 fL (9.4-12.3); Monocytes Absolute Auto 0.7 X10*3/uL (0.1-1.2); Monocytes Percent Auto 8.7 % (2-11); Neutrophils Absolute Auto 4.6 x10*3/uL (2.0-8.3); Neutrophils Percent Auto 61.2 % (45-73); Platelet Count 208 X10*3/uL (160-400); Red Blood Count 4.31 X10*6/uL (4.20-5.50); Red Cell Distribution Width 13.5 % (11.0-16.0); White Blood Count 7.4 X10*3/uL (4.8-10.8)
[2022-12-28 18:15] LABS: Amphetamine Screen Urine Not Detected (Not Detect); Barbiturates, Urine Not Detected (Not Detect); Benzodiazepines Screen Urine Not Detected (Not Detect); Cannabinoid Screen Urine Not Detected (Not Detect); Cocaine Screen Urine Not Detected (Not Detect); Fentanyl, urine Not Detected (Not Detect); Opiate Screen Urine Not Detected (Not Detect); Phencyclidine Screen Urine Not Detected (Not Detect)
[2022-12-28 18:20] LABS: Alanine Aminotransferase 28 U/L (0-31); Albumin Level 3.9 g/dL (3.5-5.0); Alkaline Phosphatase 95 U/L (39-117); Aspartate Amino Transferase 17 U/L (5-31); Bilirubin Total 0.3 mg/dL (0.0-1.0); Blood Urea Nitrogen 19 mg/dL (9-16); Calcium 9.5 mg/dL (8.4-10.2); Carbon Dioxide 29 mmol/L (22-29); Chloride 108 mmol/L (96-108); Estimated Glomerular Filt Rate 60; Ethanol < 10 mg/dL; Glucose Random 108 mg/dL (60-115); Potassium 4.1 mmol/L (3.3-5.1); Sodium 144 mmol/L (135-145); Total Protein 6.5 g/dL (6.5-8.0)
[2022-12-28 18:27] LABS: Acetaminophen LAB < 17 mcg/mL (<30); Anion Gap 10 (12-20); Salicylate < 5.0 mg/dL (15-30)
[2022-12-28] MEDS: QUEtiapine Fumarate 50 MG TABLET 250 MG PO (20:09)
[2022-12-28] MEDS: clonazePAM 1 MG TABLET PO (20:09)
[2022-12-28] MEDS: clomiPRAMINE HCl 25 MG CAPSULE 75 MG PO (20:14)
--- NOTE | 2022-12-29 | ECG_ITS ---
Test Reason : CHECK FOR PROLONGED QT Blood Pressure : / mmHG Vent. Rate : 066 BPM Atrial Rate : 066 BPM P-R Int : 176 ms QRS Dur : 084 ms QT Int : 420 ms P-R-T Axes : 063 -04 079 degrees QTc Int : 440 ms Normal sinus rhythm Nonspecific ST abnormality Abnormal ECG When compared with ECG of 14-SEP-2022 16:41, Nonspecific T wave abnormality, improved in Anterior leads Referred By: Emmett Grier Electronically Signed By:Joni Spann
[2022-12-29 04:07] VITALS: BP 139/72; PULSE 80; RESP 16; TEMP 36.4; O2SAT 94
[2022-12-29] MEDS: Omeprazole 20 MG CAPSULE.DR PO (06:25)
--- NOTE | 2022-12-29 06:30 | PC.NURSE ---
Patient slept through the night, no distress observed/reported, medication compliant, behavior pleasant and non concerning, assessed by care team pending disposition, roxanne follow up possible discharge, VSS, will continue to monitor.
--- NOTE | 2022-12-29 06:59 | PC.NURSE ---
Resumed care of this patient this morning, she is currently alert and oriented, eating breakfast in room. All needs met at this time. Plan to re-eval this AM by care team
[2022-12-29] MEDS: clonazePAM 0.5 MG TABLET PO (07:25)
[2022-12-29] MEDS: Propranolol HCL 10 MG TABLET PO (07:25)
[2022-12-29] MEDS: PARoxetine HCL 40 MG TABLET PO (07:25)
[2022-12-29 07:31] VITALS: BP 130/77; PULSE 72; RESP 18; O2SAT 98
--- NOTE | 2022-12-29 07:43 | PC.NURSE ---
While nurse was medicating patient this morning, she did verbalize thoughts of hanging herself, and that is why she felt unsafe at home. Pt mentioned her does not believe in mental health, and thinks that she is just doing this for attention. Pt stated, I just don't feel safe and I want to feel safe Pt stated she does feel safe here, and would feel comfortable coming to staff if she has any thoughts. No active plan at this time.
[2022-12-29] MEDS: QUEtiapine Fumarate 25 MG TABLET PO (11:12)
[2022-12-29 15:56] VITALS: BP 148/84; PULSE 70; RESP 18; TEMP 36.3; O2SAT 98
[2022-12-29 16:45] VITALS: BP 130/59; PULSE 69; RESP 16; TEMP 36.8; O2SAT 95
[2022-12-29] MEDS: clonazePAM 1 MG TABLET PO (20:11)
[2022-12-29] MEDS: ARIPiprazole 5 MG TABLET PO (20:11)
[2022-12-29] MEDS: clomiPRAMINE HCl 25 MG CAPSULE 75 MG PO (20:11)
[2022-12-29] MEDS: QUEtiapine Fumarate 50 MG TABLET 250 MG PO (20:13)
[2022-12-30] MEDS: Omeprazole 20 MG CAPSULE.DR PO (05:19)
[2022-12-30 06:40] LABS: Alanine Aminotransferase 35 U/L (0-31); Albumin Level 4.1 g/dL (3.5-5.0); Alkaline Phosphatase 96 U/L (39-117); Anion Gap 12 (12-20); Aspartate Amino Transferase 25 U/L (5-31); Bilirubin Total 0.6 mg/dL (0.0-1.0); Blood Urea Nitrogen 19 mg/dL (9-16); Carbon Dioxide 27 mmol/L (22-29); Chloride 105 mmol/L (96-108); Cholesterol 212 mg/dL; Creatinine Clr Calc Pharmacy 61.5; Estimated Glomerular Filt Rate 53; Glucose Fasting 104 mg/dL (60-99); HDL Cholesterol 49 mg/dL; LDL Cholesterol Calculated 134 mg/dl; Potassium 4.1 mmol/L (3.3-5.1); Sodium 140 mmol/L (135-145); Total Protein 6.7 g/dL (6.5-8.0); Triglycerides 146 mg/dL
[2022-12-30 08:00] VITALS: BP 118/70; PULSE 80; RESP 16; TEMP 36.6; O2SAT 96
[2022-12-30] MEDS: Propranolol HCL 10 MG TABLET PO (08:16)
[2022-12-30] MEDS: PARoxetine HCL 40 MG TABLET PO (08:17)
[2022-12-30] MEDS: clonazePAM 0.5 MG TABLET PO (08:17)
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
[2022-12-30] MEDS: QUEtiapine Fumarate 25 MG TABLET PO (16:31)
[2022-12-30 18:00] VITALS: BP 130/58; PULSE 73; RESP 18; TEMP 36.9; O2SAT 97
[2022-12-30] MEDS: ARIPiprazole 5 MG TABLET PO (20:43)
[2022-12-30] MEDS: clomiPRAMINE HCl 25 MG CAPSULE 75 MG PO (20:44)
[2022-12-30] MEDS: QUEtiapine Fumarate 50 MG TABLET 250 MG PO (20:44)
[2022-12-30] MEDS: clonazePAM 1 MG TABLET PO (20:44)
[2022-12-31] MEDS: Omeprazole 20 MG CAPSULE.DR PO (05:58)
[2022-12-31 06:00] VITALS: BP 134/64; PULSE 79; RESP 16; TEMP 36.4; O2SAT 95
[2022-12-31] MEDS: PARoxetine HCL 40 MG TABLET PO (08:36)
[2022-12-31] MEDS: clonazePAM 0.5 MG TABLET PO (08:36)
[2022-12-31] MEDS: Propranolol HCL 10 MG TABLET PO (08:36)
[2022-12-31] MEDS: QUEtiapine Fumarate 25 MG TABLET PO (13:27)
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
[2022-12-31 18:00] VITALS: BP 121/73; PULSE 70; RESP 18; TEMP 36.2; O2SAT 97
[2022-12-31] MEDS: ARIPiprazole 5 MG TABLET PO (20:53)
[2022-12-31] MEDS: clomiPRAMINE HCl 25 MG CAPSULE 75 MG PO (20:53)
[2022-12-31] MEDS: clonazePAM 1 MG TABLET PO (20:54)
[2022-12-31] MEDS: QUEtiapine Fumarate 50 MG TABLET 250 MG PO (20:56)
[2023-01-01] MEDS: Omeprazole 20 MG CAPSULE.DR PO (06:06)
[2023-01-01 08:00] VITALS: BP 142/65; PULSE 70; RESP 17; TEMP 36.2; O2SAT 96
[2023-01-01] MEDS: PARoxetine HCL 40 MG TABLET PO (08:35)
[2023-01-01] MEDS: Brexpiprazole 1 MG TABLET 0.5 MG PO (08:35)
[2023-01-01] MEDS: Propranolol HCL 10 MG TABLET PO (08:36)
[2023-01-01] MEDS: clonazePAM 0.5 MG TABLET PO (08:41)
[2023-01-01] MEDS: QUEtiapine Fumarate 25 MG TABLET PO (14:12)
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
[2023-01-01 18:00] VITALS: BP 136/72; PULSE 73; RESP 18; TEMP 36.8; O2SAT 95
[2023-01-01] MEDS: ARIPiprazole 5 MG TABLET PO (20:42)
[2023-01-01] MEDS: clonazePAM 1 MG TABLET PO (20:42)
[2023-01-01] MEDS: clomiPRAMINE HCl 25 MG CAPSULE 75 MG PO (20:42)
[2023-01-01] MEDS: QUEtiapine Fumarate 200 MG TABLET PO (20:43)
[2023-01-02] MEDS: Omeprazole 20 MG CAPSULE.DR PO (06:46)
[2023-01-02 08:16] VITALS: BP 121/71; PULSE 75; RESP 18; TEMP 36.3; O2SAT 95
[2023-01-02] MEDS: Propranolol HCL 10 MG TABLET PO (08:17)
[2023-01-02] MEDS: PARoxetine HCL 40 MG TABLET PO (08:17)
[2023-01-02] MEDS: clonazePAM 0.5 MG TABLET PO (08:18)
[2023-01-02] MEDS: Brexpiprazole 1 MG TABLET PO (08:18)
[2023-01-02] MEDS: Milk of Magnesia 30 ML ORAL.SUSP PO (09:00)
[2023-01-02] MEDS: QUEtiapine Fumarate 25 MG TABLET PO (14:51)
[2023-01-02 18:00] VITALS: BP 126/68; PULSE 70; RESP 18; TEMP 36.4; O2SAT 99
[2023-01-02] MEDS: QUEtiapine Fumarate 200 MG TABLET PO (21:11)
[2023-01-02] MEDS: ARIPiprazole 5 MG TABLET PO (21:11)
[2023-01-02] MEDS: clonazePAM 1 MG TABLET PO (21:12)
[2023-01-02] MEDS: clomiPRAMINE HCl 25 MG CAPSULE 75 MG PO (21:13)
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
[2023-01-03] MEDS: QUEtiapine Fumarate 25 MG TABLET PO ×2 (04:17→17:11)
[2023-01-03] MEDS: Omeprazole 20 MG CAPSULE.DR PO (04:17)
[2023-01-03 07:00] VITALS: BMI 33.8
[2023-01-03] MEDS: Propranolol HCL 10 MG TABLET PO (09:05)
[2023-01-03] MEDS: PARoxetine HCL 40 MG TABLET PO (09:06)
[2023-01-03] MEDS: Brexpiprazole 1 MG TABLET PO (09:06)
[2023-01-03 09:42] VITALS: BP 120/56; PULSE 76; RESP 18; TEMP 36.4; O2SAT 93
[2023-01-03] MEDS: clonazePAM 0.5 MG TABLET PO (10:34)
[2023-01-03 18:00] VITALS: BP 139/78; PULSE 69; TEMP 36; O2SAT 95
[2023-01-03] MEDS: clomiPRAMINE HCl 25 MG CAPSULE 75 MG PO (20:57)
[2023-01-03] MEDS: clonazePAM 1 MG TABLET PO (20:57)
[2023-01-03] MEDS: QUEtiapine Fumarate 200 MG TABLET PO (20:57)
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
[2023-01-04] MEDS: QUEtiapine Fumarate 50 MG TABLET PO (01:22)
[2023-01-04] MEDS: Omeprazole 20 MG CAPSULE.DR PO (06:00)
[2023-01-04 08:28] VITALS: BP 128/64; PULSE 75; RESP 16; TEMP 36.8; O2SAT 96
[2023-01-04] MEDS: QUEtiapine Fumarate 25 MG TABLET PO ×2 (09:01→15:54)
[2023-01-04] MEDS: Propranolol HCL 10 MG TABLET PO (09:01)
[2023-01-04] MEDS: clonazePAM 0.5 MG TABLET PO (09:01)
[2023-01-04] MEDS: Brexpiprazole 1 MG TABLET PO (09:02)
[2023-01-04] MEDS: PARoxetine HCL 40 MG TABLET PO (09:02)
[2023-01-04 18:00] VITALS: BP 147/84; PULSE 75; RESP 18; TEMP 36.1; O2SAT 96
[2023-01-04] MEDS: QUEtiapine Fumarate 200 MG TABLET PO (20:32)
[2023-01-04] MEDS: clonazePAM 1 MG TABLET PO (20:32)
[2023-01-04] MEDS: clomiPRAMINE HCl 25 MG CAPSULE 75 MG PO (20:33)
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
[2023-01-05 06:00] VITALS: BP 112/61; PULSE 74; RESP 16; TEMP 35.7; O2SAT 94
[2023-01-05] MEDS: Omeprazole 20 MG CAPSULE.DR PO (06:06)
[2023-01-05] MEDS: PARoxetine HCL 40 MG TABLET PO (08:34)
[2023-01-05] MEDS: Propranolol HCL 10 MG TABLET PO (08:35)
[2023-01-05] MEDS: clonazePAM 0.5 MG TABLET PO (08:35)
[2023-01-05] MEDS: QUEtiapine Fumarate 25 MG TABLET PO ×2 (08:35→14:15)
[2023-01-05] MEDS: Brexpiprazole 1 MG TABLET PO (08:36)
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
[2023-01-05] MEDS: hydrOXYzine HCL 25 MG TABLET PO (17:27)
[2023-01-05] MEDS: LORazepam 1 MG TABLET PO (18:09)
[2023-01-05 20:58] VITALS: BP 125/68; PULSE 69; RESP 18; TEMP 36.6; O2SAT 95
[2023-01-05] MEDS: clonazePAM 1 MG TABLET PO (21:04)
[2023-01-05] MEDS: QUEtiapine Fumarate 200 MG TABLET PO (21:04)
[2023-01-05] MEDS: clomiPRAMINE HCl 25 MG CAPSULE 75 MG PO (21:04)
[2023-01-06] MEDS: Omeprazole 20 MG CAPSULE.DR PO (05:57)
[2023-01-06 06:00] VITALS: BP 131/78; PULSE 72; RESP 16; TEMP 36.7; O2SAT 96
[2023-01-06] MEDS: Brexpiprazole 1 MG TABLET PO (08:46)
[2023-01-06] MEDS: PARoxetine HCL 40 MG TABLET PO (08:46)
[2023-01-06] MEDS: clonazePAM 0.5 MG TABLET PO (08:46)
[2023-01-06] MEDS: QUEtiapine Fumarate 25 MG TABLET PO ×2 (08:47→15:00)
[2023-01-06] MEDS: Propranolol HCL 10 MG TABLET PO (08:47)
[2023-01-06] MEDS: LORazepam 1 MG TABLET PO (12:31)
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
[2023-01-06 18:00] VITALS: BP 144/63; PULSE 70; RESP 18; TEMP 36.2; O2SAT 95
[2023-01-06] MEDS: clonazePAM 1 MG TABLET PO (20:21)
[2023-01-06] MEDS: QUEtiapine Fumarate 200 MG TABLET PO (20:21)
[2023-01-06] MEDS: clomiPRAMINE HCl 25 MG CAPSULE 75 MG PO (20:21)
[2023-01-06 23:33] LABS: Clomipramine 225 mcg/L (50-250); Desmethylclomipramine 380 mcg/L (150-350)
[2023-01-07] MEDS: Omeprazole 20 MG CAPSULE.DR PO (04:34)
--- NOTE | 2023-01-07 05:29 | PC.NURSE ---
01/07/2023 0100 Lab called with critical Clomipramine level of 605 with normal range = 200-600. Dr Williamson notified. Patient notified. EKG ordered for AM routine.
[2023-01-07 08:00] VITALS: BP 121/68; PULSE 77; RESP 18; TEMP 36.3; O2SAT 94
--- NOTE | 2023-01-07 08:00 | ECG_ITS ---
Test Reason : tightness chest Blood Pressure : / mmHG Vent. Rate : 075 BPM Atrial Rate : 075 BPM P-R Int : 174 ms QRS Dur : 088 ms QT Int : 396 ms P-R-T Axes : 051 -03 053 degrees QTc Int : 442 ms Normal sinus rhythm Nonspecific ST abnormality Abnormal ECG When compared with ECG of 29-DEC-2022 13:03, No significant change was found Referred By: Ovidio Williamson Electronically Signed By:ANDREIA LIMON
[2023-01-07] MEDS: QUEtiapine Fumarate 25 MG TABLET PO ×2 (08:11→14:28)
[2023-01-07] MEDS: PARoxetine HCL 40 MG TABLET PO (08:11)
[2023-01-07] MEDS: Propranolol HCL 10 MG TABLET PO (08:11)
[2023-01-07] MEDS: clonazePAM 0.5 MG TABLET PO (08:12)
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
[2023-01-07] MEDS: Brexpiprazole 1 MG TABLET 0.5 MG PO (17:07)
[2023-01-07 18:00] VITALS: BP 144/65; PULSE 73; RESP 18; TEMP 36.6; O2SAT 94
--- NOTE | 2023-01-07 19:30 | PC.NURSE ---
Tc to Dr tracey re:anafranil level (605) and giving [address] requested no hold on med at this pt
[2023-01-07] MEDS: clonazePAM 1 MG TABLET PO (21:52)
[2023-01-07] MEDS: clomiPRAMINE HCl 25 MG CAPSULE 75 MG PO (21:52)
[2023-01-07] MEDS: QUEtiapine Fumarate 200 MG TABLET PO (21:52)
[2023-01-08] MEDS: Omeprazole 20 MG CAPSULE.DR PO (05:53)
[2023-01-08 07:30] VITALS: BP 129/71; PULSE 76; RESP 16; TEMP 36.6; O2SAT 96
[2023-01-08] MEDS: QUEtiapine Fumarate 25 MG TABLET PO (07:55)
[2023-01-08] MEDS: clonazePAM 0.5 MG TABLET PO (07:55)
[2023-01-08] MEDS: PARoxetine HCL 40 MG TABLET PO (07:55)
[2023-01-08] MEDS: Propranolol HCL 10 MG TABLET PO (07:56)
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
--- NOTE | 2023-01-08 13:29 | PC.NURSE ---
Pt. A & O X 4. Reports readiness for discharge. Denies SI/HI/AH/VH. Denies intrusive thoughts of self harm. Mood and affect bright. Discharge instructions and medications reviewed wiht pt., who verbalized understanding. Pt. left unit at 13:15 via WC accompanied by this principal technical writer, , and son.
== END 2023-01-08 13:15 | disposition home or self-care (01) | DRG 885 ==
LOC: HO.ED 18:10 → HO.PGERI 12-29 16:13
PROVIDERS: Physician Assistant Medical; Admitting Provider Psychiatry & Neurology Psychiatry; Emergency Provider Emergency Medicine; Visit Provider Psychiatry & Neurology Psychiatry
DX: F33.2 Major depressive disorder, recurrent severe without psychotic features (principal); Z86.16 Personal history of COVID-19; Z88.8 Allergy status to other drugs, medicaments and biological substances; Z79.899 Other long term (current) drug therapy; Z20.822 Contact with and (suspected) exposure to COVID-19
CPT/HCPCS: 36415; 80053; 80061; 80143; 80179; 80307; 80335; 81003; 81025; 82077; 85025; 87635; 93005; 99285; S9485

== ENCOUNTER 2023-01-25 10:15 | Outpatient (RCR) | payer MEDICARE, SELFPAY ==
[2023-01-15 10:56] VITALS: BP 118/74; PULSE 76; TEMP 37.1
[2023-01-15 11:00] VITALS: BMI 33.8
--- NOTE | 2023-01-15 11:25 | PC.ADMIT ---
Patient is a 67 year old female who was referred to [facility] by the inpatient Behavioral Health unit at [facility] where she was admitted d/t increased depression with intrusive SI, no plan or intent and anxiety. Patient is alert and oriented x4. Calm and cooperative. Presented with anxious mood and affect. Denied SI. Patient reports she continues with anxiety and obsessive thinking and thoughts are not as clear. Patient given a copy of her safety plan if needed and I reviewed the plan with her. Medications reconciled with Alida and D/C medical record. Patient reports Dr Williamson made a medication change since discharge from the unit. Rexulti was discontinued and Abilify 5 mg at bedtime was started. Patient reports she is taking her medications as prescribed.
--- NOTE | 2023-01-15 12:04 | HO.PHPPROGNO ---
Subjective Subjective Date of Service: 01/15/23 Reason For Visit: PTSD,OCD Medical Problems Affecting Mental Status: No Interim History: Patient is a 66-year-old female, referred to [facility] as a step-down from inpatient level of care at [facility]. She was hospitalized from December 29 through 01/08/2023 due to worsening symptoms of depression, anxiety, intrusive thoughts, suicidal ideation. She had been struggling with worsening symptoms over the past 6 months. Precipitants include the of her [id number] by pancreatic cancer 6 months ago, she also has had COVID within this time, and her long-term therapist retired approximately 6 months ago[address] She sees Dr. Williamson for outpatient psychiatry. She now has a new therapist that she has begun working with, and finds helpful. While inpatient she has had medication adjustments and changes. Had Abilify stopped, was started with Rexulti. However, medication was not covered under her insurance plan, and she could not supervisor opening and picking Rexulti. Her outpatient provider instructed her to take Abilify 5 mg daily, as a letter is being prepared for medical necessity regarding Rexulti. Continues with some anhedonia, anxiety, decreased energy, low self-esteem, disrupted sleep. Reports that she wakes up multiple times during the night. She currently denies any SI, plan or intent to harm herself in any way. She has been in this program in the past, and has always found it helpful. Looking forward to participating in groups. Medication Compliance: Yes Side effects from medications: Yes (slight tremor lips, chin (possible abilify?)) Attending Groups: Yes Review of Systems Acute medical concerns: No Medical Review of Systems: unchanged Diagnostics Vital Signs (24Hr): Vital Signs - 24 hr 01/15/23 10:56 Temperature 98.7 F Pulse Rate 76 Blood Pressure 118/74 BMI result Body Mass Index 33.8 Assessment & Plan Certification I certify that partial hospital treatment is medically necessary due to the symptoms and problems resulting from the patient's mental illness and the failure to treat the patient at the partial hospital level of care would likely result in the patient requiring inpatient psychiatric care which could not be prevented at a less intensive level of care. Total time managing care of this patient today ____ minutes. Discharge Plan Discharge Attending provider: Remington Burgess Medications: No Action clomipramine 25 mg capsule 75 mg PO BEDTIME Qty: 270 3RF omeprazole magnesium [Prilosec OTC] 20 mg Tablet,Delayed Release (Dr/Ec) 20 mg PO DAILY aripiprazole [Abilify] 5 mg Tablet 5 mg PO BEDTIME propranolol 10 mg tablet 10 mg PO DAILY PRN (Reason: Anxiety) Patient Comments: Patient stated she consulted with Dr Williamson and now is taking PRN for anxiety. Trelegy Ellipta 200-62.5-25 mcg blister with device 1 ea inhalation DAILY lorazepam 1 mg Tablet 1 mg PO BID PRN (Reason: Anxiety) Qty: 30 0RF quetiapine 25 mg tablet 25 mg PO DIRECTED Qty: 90 0RF Rx Instructions: 1 TAB 2 X DAY MAY ALSO TAKE AN EXTRA 2 TABS DAILY NEEDED clonazepam [Klonopin] 1 mg tablet 1 mg PO DIRECTED 30 Days Qty: 45 1RF Rx Instructions: 1/2 tab in the am 1 tab bedtime quetiapine 100 mg tablet 200 mg PO BEDTIME Qty: 60 0RF Rx Instructions: 200-250 mg bedtime paroxetine HCl 40 mg tablet 40 mg PO DAILY 90 Days Qty: 90 1RF albuterol sulfate 90 mcg/actuation HFA aerosol inhaler 2 inh inhalation Q6H PRN (Reason: shortness of breath or wheezing) 30 Days Qty: 18 12RF
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
--- NOTE | 2023-01-18 10:55 | HO.PHPPROGNO ---
Subjective Subjective Date of Service: 01/18/23 Reason For Visit: PTSD,OCD Medical Problems Affecting Mental Status: No Interim History: Depressed, anxious mood, passive SI. No intent today, had intent last evening. No plan. States ?I feel shaky? regarding current mental status. Reports did not feel safe last evening. Did utilize p.r.n. Ativan and Seroquel with good effect. Feeling overwhelmed today. Medication Compliance: Yes Side effects from medications: No Attending Groups: Yes Review of Systems Acute medical concerns: No Medical Review of Systems: unchanged Review of Systems Review of Systems Yes all other systems are reviewed and are negative Constitutional: Reports no additional constitutional complaints Mental Status Exam Mental Status Exam Narrative: Tearful Patient Appearance: Well Grooomed Patient Orientation: Person, Place, Time and Situation Level of Consciousness: Appropriate Patient Behavior: Appropriate and Anxious Mood Description: Depressed and Anxious Affect Description: Depressed and Anxious Patient Cognition Impaired: No Ability to Follow Directions: Excellent Speech Pattern: Clear Memory Description: Intact Hallucinations: None Delusions: Not Present Thought Process: Intact Thought Content: positive for Intact and positive for Suicidal Ideation (passive ) Depressive Symptoms: Increased Anxiety, Difficulty Sleeping, Loss of Int. in Activity, Unhappiness, Thoughts of /Suicide and Loss of Energy Judgement: Fair Diagnostics Vital Signs (24Hr): BMI result Body Mass Index 33.8 Assessment & Plan Assessment & Plan (1) Depression, major, severe recurrence: Status: Resolved Code(s): F33.2 - Major depressive disorder, recurrent severe without psychotic features Assessment and Plan: Depressed, anxious mood, passive SI. No intent today, had intent last evening. No plan today. Tearful during encounter. States ?I feel shaky? regarding current mental status. That she is struggling. Had an argument with her last night, he told her that he is sick of her mental illness, and she needs to get herself together. He told her that she needs to stop living in the past. Is their wedding anniversary today, he did not wish her happy anniversary, and is going away for the weekend. Reports did not feel safe last evening. Did utilize p.r.n. Ativan and Seroquel with good effect. Reports that her son was with her. States that he will be with her again over the weekend Feeling overwhelmed today. We reviewed her available p.r.n. medications. She was encouraged to utilize the p.r.n. Ativan and Seroquel as prescribed, as she reported that it did help yesterday. Reviewed safety, patient will contact crisis if needed, will also let staff know today while here if she feels she will act on SI, so that she can be seen by crisis. (2) OCD (obsessive compulsive disorder): Status: Acute Code(s): F42.9 - Obsessive-compulsive disorder, unspecified (3) PTSD (post-traumatic stress disorder): Status: Acute Code(s): F43.10 - Post-traumatic stress disorder, unspecified Plan 1. Continue with current [facility] plan of care. 2. Reinforced safety plan. 3. Follow-up as per protocol. 4. Patient encouraged to utilize p.r.n. as needed. Patient educated on: diagnosis, medication risk/benefits and therapeutic strategies Informed Consent: understands Reason for contiued partial hosp. stay Substantial Risk for: harm to self, inability to function and rapid decompensation Certification I certify that partial hospital treatment is medically necessary due to the symptoms and problems resulting from the patient's mental illness and the failure to treat the patient at the partial hospital level of care would likely result in the patient requiring inpatient psychiatric care which could not be prevented at a less intensive level of care. Total time managing care of this patient today ___20_ minutes. Discharge Plan Discharge Attending provider: Reimngton Burgess Medications: No Action clomipramine 25 mg capsule 75 mg PO BEDTIME Qty: 270 3RF omeprazole magnesium [Prilosec OTC] 20 mg Tablet,Delayed Release (Dr/Ec) 20 mg PO DAILY aripiprazole [Abilify] 5 mg Tablet 5 mg PO BEDTIME propranolol 10 mg tablet 10 mg PO DAILY PRN (Reason: Anxiety) Patient Comments: Patient stated she consulted with Dr Williamson and now is taking PRN for anxiety. Trelegy Ellipta 200-62.5-25 mcg blister with device 1 ea inhalation DAILY lorazepam 1 mg Tablet 1 mg PO BID PRN (Reason: Anxiety) Qty: 30 0RF quetiapine 25 mg tablet 25 mg PO DIRECTED Qty: 90 0RF Rx Instructions: 1 TAB 2 X DAY MAY ALSO TAKE AN EXTRA 2 TABS DAILY NEEDED clonazepam [Klonopin] 1 mg tablet 1 mg PO DIRECTED 30 Days Qty: 45 1RF Rx Instructions: 1/2 tab in the am 1 tab bedtime quetiapine 100 mg tablet 200 mg PO BEDTIME Qty: 60 0RF Rx Instructions: 200-250 mg bedtime paroxetine HCl 40 mg tablet 40 mg PO DAILY 90 Days Qty: 90 1RF albuterol sulfate 90 mcg/actuation HFA aerosol inhaler 2 inh inhalation Q6H PRN (Reason: shortness of breath or wheezing) 30 Days Qty: 18 12RF
--- NOTE | 2023-01-18 14:53 | HO.PHP ---
Case reviewed and opened in treatment team
--- NOTE | 2023-01-23 14:48 | HO.PHPPROGNO ---
Subjective Subjective Date of Service: 01/23/23 Reason For Visit: PTSD,OCD Healthcare Proxy: No Guardianship: No Interim History: Patient is status post discharge from hospital has been attending the partial hospital program. Somewhat discouraged regarding lack of support at times from her . Mood markedly less depressed less preoccupied his with guilt and her past Medication Compliance: Yes Mental Status Exam Mental Status Exam Narrative: NAD. Able to smile, joke during encounter. Patient Appearance: Well Grooomed Patient Orientation: Person, Place, Time and Situation Level of Consciousness: Appropriate Patient Behavior: Appropriate Mood Description: Calm and Appropriate Affect Description: Appropriate Patient Cognition Impaired: No Ability to Follow Directions: Excellent Speech Pattern: Clear Memory Description: Intact Hallucinations: None Delusions: Not Present Thought Process: Intact Thought Content: positive for Intact Depressive Symptoms: Increased Anxiety Judgement: Good Diagnostics Vital Signs (24Hr): BMI result Body Mass Index 33.8 Assessment & Plan Assessment & Plan (1) Depression, major, severe recurrence: Status: Resolved Code(s): F33.2 - Major depressive disorder, recurrent severe without psychotic features (2) OCD (obsessive compulsive disorder): Status: Acute Code(s): F42.9 - Obsessive-compulsive disorder, unspecified (3) PTSD (post-traumatic stress disorder): Status: Acute Code(s): F43.10 - Post-traumatic stress disorder, unspecified Plan Patient feeling supported by PHP in current regimen no complaints side effects that are not tolerated Abilify Seroquel effective denies SI or intrusive self-harming thinking Patient educated on: diagnosis, medication risk/benefits and therapeutic strategies Informed Consent: understands Reason for contiued partial hosp. stay Substantial Risk for: rapid decompensation Certification I certify that partial hospital treatment is medically necessary due to the symptoms and problems resulting from the patient's mental illness and the failure to treat the patient at the partial hospital level of care would likely result in the patient requiring inpatient psychiatric care which could not be prevented at a less intensive level of care. Total time managing care of this patient today ____ minutes. Discharge Plan Discharge Attending provider: Remington Burgess Additional Instructions: Tsering Mckeon [facility] Medications: No Action clomipramine 25 mg capsule 75 mg PO BEDTIME Qty: 270 3RF aripiprazole [Abilify] 5 mg tablet 5 mg PO BEDTIME Qty: 90 1RF omeprazole magnesium [Prilosec OTC] 20 mg Tablet,Delayed Release (Dr/Ec) 20 mg PO DAILY propranolol 10 mg tablet 10 mg PO DAILY PRN (Reason: Anxiety) Patient Comments: Patient stated she consulted with Dr Williamson and now is taking PRN for anxiety. Trelegy Ellipta 200-62.5-25 mcg blister with device 1 ea inhalation DAILY lorazepam 1 mg Tablet 1 mg PO BID PRN (Reason: Anxiety) Qty: 30 0RF quetiapine 100 mg tablet 200 mg PO BEDTIME Qty: 60 0RF Rx Instructions: 200-250 mg bedtime paroxetine HCl 40 mg tablet 40 mg PO DAILY 90 Days Qty: 90 1RF albuterol sulfate 90 mcg/actuation HFA aerosol inhaler 2 inh inhalation Q6H PRN (Reason: shortness of breath or wheezing) 30 Days Qty: 18 12RF quetiapine 25 mg tablet 25 mg PO DIRECTED Qty: 90 2RF Rx Instructions: 1 TAB 2 X DAY MAY ALSO TAKE AN EXTRA 2 TABS DAILY NEEDED clonazepam [Klonopin] 1 mg tablet 1 mg PO DIRECTED Rx Instructions: 1/2 tab in the am 1 tab bedtime Stand Alone Forms: Patient Portal Discharge page Patient Education: Depression (DC)
--- NOTE | 2023-01-24 11:08 | HO.PHPPROGNO ---
Subjective Subjective Date of Service: 01/24/23 Reason For Visit: PTSD,OCD Medical Problems Affecting Mental Status: No Interim History: Patient reports feels less depressed, less anxious. Full range of affect during encounter. Looking forward to upcoming trip to [facility] for 10 days, leaves on Saturday. Met with psychiatrist yesterday, satisfied with current medication regimen. No SI today, no safety concerns. Feels ready for discharge from [facility] at this time. Medication Compliance: Yes Side effects from medications: No Attending Groups: Yes Review of Systems Acute medical concerns: No Medical Review of Systems: unchanged Review of Systems Review of Systems Yes all other systems are reviewed and are negative Constitutional: Reports no additional constitutional complaints Mental Status Exam Mental Status Exam Narrative: NAD. Able to smile, joke during encounter. Patient Appearance: Well Grooomed Patient Orientation: Person, Place, Time and Situation Level of Consciousness: Appropriate Patient Behavior: Appropriate Mood Description: Calm and Appropriate Affect Description: Appropriate Patient Cognition Impaired: No Ability to Follow Directions: Excellent Speech Pattern: Clear Memory Description: Intact Hallucinations: None Delusions: Not Present Thought Process: Intact Thought Content: positive for Intact Depressive Symptoms: Increased Anxiety Judgement: Good Diagnostics Vital Signs (24Hr): BMI result Body Mass Index 33.8 Assessment & Plan Assessment & Plan (1) Depression, major, severe recurrence: Status: Resolved Code(s): F33.2 - Major depressive disorder, recurrent severe without psychotic features Assessment and Plan: Reports feeling much improved regarding mood. No SI today, no safety concerns. Able to smile during encounter. Reports that she found the program to be very helpful. States that she has since the universality while here, able to relate well to others during group sessions. Met with psychiatrist yesterday. Satisfied with current medication regimen. Feels stable for discharge from [facility]. Last a scheduled for tomorrow. (2) OCD (obsessive compulsive disorder): Status: Acute Code(s): F42.9 - Obsessive-compulsive disorder, unspecified (3) PTSD (post-traumatic stress disorder): Status: Acute Code(s): F43.10 - Post-traumatic stress disorder, unspecified Plan 1. Patient appears stable for discharge from [facility] tomorrow. 2. Patient to follow-up with outpatient providers going forward. Patient educated on: diagnosis, medication risk/benefits and therapeutic strategies Informed Consent: understands Reason for contiued partial hosp. stay Substantial Risk for: stable for discharge Certification I certify that partial hospital treatment is medically necessary due to the symptoms and problems resulting from the patient's mental illness and the failure to treat the patient at the partial hospital level of care would likely result in the patient requiring inpatient psychiatric care which could not be prevented at a less intensive level of care. Total time managing care of this patient today __15__ minutes. Discharge Plan Discharge Attending provider: Remington Burgess Medications: No Action clomipramine 25 mg capsule 75 mg PO BEDTIME Qty: 270 3RF omeprazole magnesium [Prilosec OTC] 20 mg Tablet,Delayed Release (Dr/Ec) 20 mg PO DAILY aripiprazole [Abilify] 5 mg Tablet 5 mg PO BEDTIME propranolol 10 mg tablet 10 mg PO DAILY PRN (Reason: Anxiety) Patient Comments: Patient stated she consulted with Dr Williamson and now is taking PRN for anxiety. Trelegy Ellipta 200-62.5-25 mcg blister with device 1 ea inhalation DAILY lorazepam 1 mg Tablet 1 mg PO BID PRN (Reason: Anxiety) Qty: 30 0RF clonazepam [Klonopin] 1 mg tablet 1 mg PO DIRECTED 30 Days Qty: 45 1RF Rx Instructions: 1/2 tab in the am 1 tab bedtime quetiapine 100 mg tablet 200 mg PO BEDTIME Qty: 60 0RF Rx Instructions: 200-250 mg bedtime paroxetine HCl 40 mg tablet 40 mg PO DAILY 90 Days Qty: 90 1RF albuterol sulfate 90 mcg/actuation HFA aerosol inhaler 2 inh inhalation Q6H PRN (Reason: shortness of breath or wheezing) 30 Days Qty: 18 12RF quetiapine 25 mg tablet 25 mg PO DIRECTED Qty: 90 2RF Rx Instructions: 1 TAB 2 X DAY MAY ALSO TAKE AN EXTRA 2 TABS DAILY NEEDED Stand Alone Forms: Patient Portal Discharge page Patient Education: Depression (DC)
--- NOTE | 2023-01-30 09:54 | HO.PHP ---
A call was made to the clients therapist, Tsering AMADOR re client discharge
== END 2023-01-25 23:59 | disposition home or self-care (01) ==
LOC: HO.PHPA 10:15
PROVIDERS: Visit Provider Psychiatry & Neurology Psychiatry
DX: F33.2 Major depressive disorder, recurrent severe without psychotic features (principal); F42.9 Obsessive-compulsive disorder, unspecified; F43.10 Post-traumatic stress disorder, unspecified; Z79.899 Other long term (current) drug therapy
CPT/HCPCS: 90791; 90853

== ENCOUNTER → 2023-02-20 14:08 | Outpatient (BNVA) | payer MEDICARE, SELFPAY | PROVIDERS: PCP Nurse Practitioner Family; Visit Provider Psychiatry & Neurology Psychiatry | DX: F42.9 Obsessive-compulsive disorder, unspecified (principal); F43.10 Post-traumatic stress disorder, unspecified; F32.4 Major depressive disorder, single episode, in partial remission; J98.4 Other disorders of lung | CPT/HCPCS: 99212 ==

== ENCOUNTER → 2023-03-28 14:21 | Outpatient (BNVA) | payer MEDICARE, SELFPAY | PROVIDERS: PCP Nurse Practitioner Family; Visit Provider Psychiatry & Neurology Psychiatry ==

== ENCOUNTER 2023-03-30 05:41 | Emergency (ER) | payer MEDICARE, SELFPAY ==
[2023-03-30 05:45] VITALS: BP 152/74; PULSE 96; RESP 16; TEMP 36.2; O2SAT 96; BMI 33.4
--- NOTE | 2023-03-30 06:32 | ED.SOB ---
HPI - SOB/Dyspnea General Chief Complaint: Dyspnea Stated Complaint: Diff breathing, cough Time Seen by Provider: 03/30/23 05:52 Source: patient Mode of arrival: ambulatory History of Present Illness HPI Narrative: This is a 67-year-old female who presents with cough, sore throat and increased difficulty breathing with some associated nausea as well as fevers. Patient states that she returned from home why this past Saturday and reports a T-max of 101.9 degrees at home she did take Motrin at 0 400, 400 mg. Patient states that she was seen by her primary care provider on Saturday and was informed that there is nothing that they could really do. Patient does have a history of restrictive lung disease that developed after her COVID-19 infection. Related Data Home Medications Medication Instructions Recorded Confirmed omeprazole magnesium 20 mg 20 mg PO DAILY 03/24/21 03/28/23 tablet,delayed release (Prilosec OTC) fluticasone fur. 200 mcg-umeclid 1 ea inhalation DAILY 12/28/22 03/28/23 62.5 mcg-vilant 25 mcg inhalat.powder (Trelegy Ellipta) propranolol 10 mg tablet 10 mg PO DAILY PRN Anxiety 12/28/22 03/28/23 Previous Rx's Medication Instructions Recorded albuterol sulfate 90 mcg/actuation 2 inh inhalation Q6H PRN shortness 10/02/22 aerosol inhaler of breath or wheezing 30 days #18 grams clomipramine 25 mg capsule 75 mg PO BEDTIME #270 caps 12/20/22 quetiapine 100 mg tablet 200 mg PO BEDTIME #60 tabs 01/08/23 aripiprazole 5 mg tablet (Abilify) 5 mg PO BEDTIME #90 tabs 02/08/23 quetiapine 25 mg tablet 25 mg PO DIRECTED #90 tabs 03/06/23 paroxetine HCl 40 mg tablet 40 mg PO DAILY 90 days #90 tabs 03/15/23 clonazepam 1 mg tablet (Klonopin) 1 mg PO DIRECTED #45 tabs 03/28/23 lorazepam 1 mg tablet 1 mg PO BID PRN Anxiety #30 tabs 03/28/23 Allergies Allergy/AdvReac Type Severity Reaction Status Date / Time shellfish derived Allergy Severe DIFFICULTY Verified 10/02/22 14:33 [SHELLFISH DERIVED] BREATHING pseudoephedrine Allergy Intermediate AGITATION Verified 10/02/22 14:33 [From SUDAFED] pregabalin [From Lyrica] Allergy Dizziness Verified 10/02/22 14:33 Review of Systems Review of Systems: Pertinent positives and negatives as stated in [facility] Past Medical History Source: nursing notes reviewed Medical History Chronic restrictive lung disease COVID-19 Fatty liver GERD (gastroesophageal reflux disease) Hepatitis History of COVID-19 History of hyperglycemia History of shingles IBS (irritable bowel syndrome) Osteopenia Small airways disease Stress incontinence Surgical History History of adenoidectomy History of appendectomy History of cholecystectomy Hx of tonsillectomy Social History Social History Household Members: Spouse and Children Household Members Other:: N/A Housing: House Do you presently have visiting nurse or other home services: No Alcohol intake: never Patient Tobacco Use Status: Never used Tobacco Smoked in Last 30 Days: No e-Cigarette/Vaping Use: Never Used Second Hand Smoke Exposure: No Use of substances other than those prescribed or required for medical reasons: No Advance Directives: No Advance Directives Information Provided: No service: No Sexual orientation: Straight/Heterosexual Physical Exam Vital Signs: Vital Signs: Last Vital Signs Temp 97.2 F 03/30/23 05:45 Pulse 96 03/30/23 05:45 Resp 16 03/30/23 05:45 BP 152/74 H 03/30/23 05:45 Pulse Ox 96 03/30/23 05:45 O2 Del Method Room Air 03/30/23 05:45 BMI result Body Mass Index 33.4 VITAL SIGNS: Reviewed. GENERAL: Well developed, well nourished, in moderate distress. HEAD: Normocephalic/atraumatic EYES: PERRLA, EOMI EARS: Ext canals without abnormality, TMs non-bulging and non-erythematous NOSE: Nares patent bilateral OROPHARYNX: no oral lesions noted, posterior pharynx clear but erythematous without noted tonsillar enlargement/erythema/exudates NECK: Supple, no adenopathy LUNGS: Good inspiratory effort but mildly decreased throughout, tachypnea is present. SpO2<96> CARDIOVASCULAR: Regular rate and rhythm without noted murmurs, no JVD or lower extremity edema. ABDOMEN: Soft, non-tender, non-distended with bowel sounds. MUSCULOSKELETAL: No tenderness, deformities, or effusions noted on gross inspection. EXTREMITIES: No cyanosis, clubbing or edema. SKIN: Inspection of the skin reveals no rashes, patient is diaphoretic NEUROLOGIC: Alert and oriented x 4. Strength and sensation to light touch were grossly intact x 4. Medications Administered Generic Name Dose Route Start Last Admin Trade Name Freq PRN Reason Stop Dose Admin Sodium Chloride 1,000 mls @ 999 mls/hr 03/30/23 06:15 03/30/23 07:02 Ns IV 03/30/23 07:15 999 mls/hr .Q1H1M HEATHER Administration Medical Decision Making Medical Decision Making MDM Narrative: 67-year-old female with history and clinical presentation, DDX: Viral syndrome, pneumonia, doubt ACS, possible Legionella. I reviewed all investigations and hematologic studies are negative for leukocytosis, anemia, thrombocytopenia but there is a noted left shift. Chemistries other than mild elevated transaminases are grossly within normal limits. No evidence of pneumonia on the chest x-ray, EKG is without significant findings. Signed out to Dr. Grier - SARs/COVID - ? Legionella Differential Diagnosis Please see the discussion above Admission/Observation Consideration of admission/observation: Escalation of care including admission/observation considered Lab Data Please see the discussion above 03/30/23 06:27 03/30/23 06:27 Labs: Lab Results 03/30/23 03/30/23 03/30/23 Range/Units 06:27 06:27 06:27 WBC 7.4 (4.8-10.8) X10*3/uL RBC 4.51 (4.20-5.50) X10*6/uL Hgb 13.3 (12.0-16.0) g/dl Hct 41.5 (37.0-47.0) % MCV 92.0 (80.0-98.0) fL MCH 29.5 (27.0-33.0) pg MCHC 32.0 (31.0-35.0) g/dl RDW 14.0 (11.0-16.0) % Plt Count 190 (160-400) X10*3/uL MPV 11.0 (9.4-12.3) fL Immature Gran % (Auto) 0.4 (0.0-0.4) % Neut % (Auto) 80.5 H (45-73) % Lymph % (Auto) 11.7 L (20-40) % [place] % (Auto) 7.0 (2-11) % Eos % (Auto) 0.1 (0-4) % Baso % (Auto) 0.3 (0-2) % Lymph # (Auto) 0.9 L (1.2-4.9) X10*3/uL [place] # (Auto) 0.5 (0.1-1.2) X10*3/uL Eos # (Auto) 0.0 (0.0-0.4) X10*3/uL Baso # (Auto) 0.0 (0.0-0.2) X10*3/uL Abs Immat Gran (auto) 0.03 (0.00-0.03) X10*3/uL Absolute Neuts (auto) 5.9 (2.0-8.3) x10*3/uL Absolute Nucleated RBC 0.000 (0.0-0.012) X10*3/uL Nucleated RBC % (auto) 0.0 (0.0-0.2) /100WBC Sodium 141 (135-145) mmol/L Potassium 3.6 (3.3-5.1) mmol/L Chloride 104 (96-108) mmol/L Carbon Dioxide 25 (22-29) mmol/L Anion Gap 16 (12-20) BUN 10 (9-16) mg/dL Creatinine 0.98 (0.5-1.4) mg/dL Estim Creat Clear Calc 67.3 Estimated GFR 57 POC Glucose (60-115) mg/dL Random Glucose 109 (60-115) mg/dL Lactic Acid (0.5-2.0) mmol/L Calcium 9.8 (8.4-10.2) mg/dL Total Bilirubin 0.4 (0.0-1.0) mg/dL AST 37 H (5-31) U/L ALT 38 H (0-31) U/L Alkaline Phosphatase 108 (39-117) U/L Total Protein 7.1 (6.5-8.0) g/dL Albumin 3.7 (3.5-5.0) g/dL S. pyogenes GrpA MARILYN Negative (Negative) 03/30/23 03/30/23 Range/Units 06:27 06:40 WBC (4.8-10.8) X10*3/uL RBC (4.20-5.50) X10*6/uL Hgb (12.0-16.0) g/dl Hct (37.0-47.0) % MCV (80.0-98.0) fL MCH (27.0-33.0) pg MCHC (31.0-35.0) g/dl RDW (11.0-16.0) % Plt Count (160-400) X10*3/uL MPV (9.4-12.3) fL Immature Gran % (Auto) (0.0-0.4) % Neut % (Auto) (45-73) % Lymph % (Auto) (20-40) % [place] % (Auto) (2-11) % Eos % (Auto) (0-4) % Baso % (Auto) (0-2) % Lymph # (Auto) (1.2-4.9) X10*3/uL [place] # (Auto) (0.1-1.2) X10*3/uL Eos # (Auto) (0.0-0.4) X10*3/uL Baso # (Auto) (0.0-0.2) X10*3/uL Abs Immat Gran (auto) (0.00-0.03) X10*3/uL Absolute Neuts (auto) (2.0-8.3) x10*3/uL Absolute Nucleated RBC (0.0-0.012) X10*3/uL Nucleated RBC % (auto) (0.0-0.2) /100WBC Sodium (135-145) mmol/L Potassium (3.3-5.1) mmol/L Chloride (96-108) mmol/L Carbon Dioxide (22-29) mmol/L Anion Gap (12-20) BUN (9-16) mg/dL Creatinine (0.5-1.4) mg/dL Estim Creat Clear Calc Estimated GFR POC Glucose 102 (60-115) mg/dL Random Glucose (60-115) mg/dL Lactic Acid 1.1 (0.5-2.0) mmol/L Calcium (8.4-10.2) mg/dL Total Bilirubin (0.0-1.0) mg/dL AST (5-31) U/L ALT (0-31) U/L Alkaline Phosphatase (39-117) U/L Total Protein (6.5-8.0) g/dL Albumin (3.5-5.0) g/dL S. pyogenes GrpA MARILYN (Negative) Independent Interpretation I performed an independent interpretation of an: EKG Interpretation: Normal sinus rhythm, HR-88, no STEMI, [place]/QRS/QTC is within normal limits. Radiology Impression Radiologist Impression: No pneumonia, otherwise my interpretation is in agreement with radiology's impression. Discharge Plan Discharge Clinical Impression: Viral syndrome Prescriptions: No Action clomipramine 25 mg capsule 75 mg PO BEDTIME Qty: 270 3RF aripiprazole [Abilify] 5 mg tablet 5 mg PO BEDTIME Qty: 90 1RF quetiapine 25 mg tablet 25 mg PO DIRECTED Qty: 90 2RF Rx Instructions: 1 TAB 2 X DAY MAY ALSO TAKE AN EXTRA 2 TABS DAILY NEEDED paroxetine HCl 40 mg tablet 40 mg PO DAILY 90 Days Qty: 90 1RF omeprazole magnesium [Prilosec OTC] 20 mg Tablet,Delayed Release (Dr/Ec) 20 mg PO DAILY propranolol 10 mg tablet 10 mg PO DAILY PRN (Reason: Anxiety) Patient Comments: Patient stated she consulted with Dr Williamson and now is taking PRN for anxiety. Trelegy Ellipta 200-62.5-25 mcg blister with device 1 ea inhalation DAILY quetiapine 100 mg tablet 200 mg PO BEDTIME Qty: 60 0RF Rx Instructions: 200-250 mg bedtime albuterol sulfate 90 mcg/actuation HFA aerosol inhaler 2 inh inhalation Q6H PRN (Reason: shortness of breath or wheezing) 30 Days Qty: 18 12RF clonazepam [Klonopin] 1 mg tablet 1 mg PO DIRECTED Qty: 45 2RF Rx Instructions: 1/2 tab in the am 1 tab bedtime lorazepam 1 mg tablet 1 mg PO BID PRN (Reason: Anxiety) Qty: 30 0RF
[2023-03-30 07:41] VITALS: BP 117/60; PULSE 82; RESP 17; TEMP 36.9; O2SAT 95
[2023-04-05 14:47] LABS: Legionella Pneumophila Ab IgM <1:256 TITER
== END 2023-03-30 08:44 | disposition home or self-care (01) ==
PROVIDERS: Student in an Organized Health Care Education/Training Program; Emergency Provider Emergency Medicine; PCP Nurse Practitioner Family
DX: J10.1 Influenza due to other identified influenza virus with other respiratory manifestations (principal); B34.9 Viral infection, unspecified; R06.00 Dyspnea, unspecified; Z20.822 Contact with and (suspected) exposure to COVID-19; J98.4 Other disorders of lung; Z79.899 Other long term (current) drug therapy
CPT/HCPCS: 0241U; 36415; 71046; 80053; 82947; 83605; 85025; 86713; 87040; 87651; 93005; 96360; 99284; 99285

== ENCOUNTER 2023-04-04 16:02 | Emergency (ER) | payer MEDICARE, SELFPAY ==
--- NOTE | ~2023-04-04 | XR_ITS ---
EXAMINATION: XR CHEST CLINICAL INFORMATION: Dyspnea, hypoxia. COMPARISON: 03/30/2023 chest radiographs. TECHNIQUE: 2 views of the chest were obtained. FINDINGS: No significant abnormality is noted involving the heart, lungs, mediastinum, bony thorax or soft tissues. XR/XR chest 2V IMPRESSION: No acute cardiopulmonary process.
[2023-04-04 16:23] VITALS: BP 153/85; PULSE 97; RESP 20; TEMP 36.9; O2SAT 97; BMI 32.4
--- NOTE | 2023-04-04 16:23 | ED.GENADULT ---
HPI - General Adult General Chief complaint: Upper Respiratory Symptoms Stated complaint: sob,coughing,confusion Time Seen by Provider: 04/04/23 21:25 Source: patient Mode of arrival: ambulatory History of Present Illness HPI narrative: 67-year-old female who has been seen here hand diagnosed with influenza a, states she followed up with Dr. Guzman on Saturday, this is her bookmaker's clerk, who prescribed her 40 mg of prednisone for 5 days, but patient stated that she became confused and only took 20 mg for 3 days. She comes in with concerns for continued feelings of shortness of breath and reports she does have an inhaler at home but denies any further fevers or chills. Related Data Home Medications Medication Instructions Recorded Confirmed omeprazole magnesium 20 mg 20 mg PO DAILY 03/24/21 03/28/23 tablet,delayed release (Prilosec OTC) fluticasone fur. 200 mcg-umeclid 1 ea inhalation DAILY 12/28/22 03/28/23 62.5 mcg-vilant 25 mcg inhalat.powder (Trelegy Ellipta) propranolol 10 mg tablet 10 mg PO DAILY PRN Anxiety 12/28/22 03/28/23 Previous Rx's Medication Instructions Recorded albuterol sulfate 90 mcg/actuation 2 inh inhalation Q6H PRN shortness 10/02/22 aerosol inhaler of breath or wheezing 30 days #18 grams clomipramine 25 mg capsule 75 mg PO BEDTIME #270 caps 12/20/22 quetiapine 100 mg tablet 200 mg PO BEDTIME #60 tabs 01/08/23 aripiprazole 5 mg tablet (Abilify) 5 mg PO BEDTIME #90 tabs 02/08/23 quetiapine 25 mg tablet 25 mg PO DIRECTED #90 tabs 03/06/23 paroxetine HCl 40 mg tablet 40 mg PO DAILY 90 days #90 tabs 03/15/23 clonazepam 1 mg tablet (Klonopin) 1 mg PO DIRECTED #45 tabs 03/28/23 lorazepam 1 mg tablet 1 mg PO BID PRN Anxiety #30 tabs 03/28/23 doxycycline hyclate 100 mg capsule 100 mg PO BID 10 days #20 caps 04/01/23 prednisone 20 mg tablet See Rx Instructions PO DAILY 10 04/01/23 days #15 tabs Allergies Allergy/AdvReac Type Severity Reaction Status Date / Time shellfish derived Allergy Severe DIFFICULTY Verified 10/02/22 14:33 [SHELLFISH DERIVED] BREATHING pseudoephedrine Allergy Intermediate AGITATION Verified 10/02/22 14:33 [From SUDAFED] pregabalin [From Lyrica] Allergy Dizziness Verified 10/02/22 14:33 Review of Systems Review of Systems: Pertinent positives and negatives as stated in HPI PMFSH Past Medical History Source: nursing notes reviewed Medical History Chronic restrictive lung disease COVID-19 Fatty liver GERD (gastroesophageal reflux disease) Hepatitis History of COVID-19 History of hyperglycemia History of shingles IBS (irritable bowel syndrome) Osteopenia Small airways disease Stress incontinence Surgical History History of adenoidectomy History of appendectomy History of cholecystectomy Hx of tonsillectomy Social History Social History Household Members: Spouse and Children Household Members Other:: N/A Housing: House Do you presently have visiting nurse or other home services: No Alcohol intake: never Patient Tobacco Use Status: Never used Tobacco Smoked in Last 30 Days: No e-Cigarette/Vaping Use: Never Used Second Hand Smoke Exposure: No Use of substances other than those prescribed or required for medical reasons: No Advance Directives: No Advance Directives Information Provided: Yes service: No Sexual orientation: Straight/Heterosexual Physical Exam ED Vital Signs: Vital Signs - 24 hr 04/04/23 16:23 04/04/23 21:25 04/04/23 21:28 Temperature 98.4 F 98.2 F Pulse Rate 97 85 Respiratory Rate 20 18 Blood Pressure 153/85 H 131/80 Pulse Oximetry 97 96 97 Oxygen Delivery Method Room Air Room Air Room Air BMI result Body Mass Index 32.4 VITAL SIGNS: Reviewed. GENERAL: Well developed, well nourished, in no acute distress. HEAD: Normocephalic/atraumatic EYES: PERRLA, EOMI EARS: Ext canals without abnormality, TMs non-bulging and non-erythematous NOSE: Nares patent bilateral OROPHARYNX: no oral lesions noted, posterior pharynx clear and non-erythematous without noted tonsillar enlargement/erythema/exudates NECK: Supple, no adenopathy LUNGS: Normal breath sounds, but noted evidence of atelectasis in bases, no tachypnea or increased work of breathing. SpO2<97> CARDIOVASCULAR: Regular rate and rhythm without noted murmurs ABDOMEN: Soft, non-tender, non-distended with bowel sounds. MUSCULOSKELETAL: No tenderness, deformities, or effusions noted on gross inspection. EXTREMITIES: No cyanosis, clubbing or edema. SKIN: Inspection of the skin reveals no rashes NEUROLOGIC: Alert and oriented x 4. Strength and sensation to light touch were grossly intact x 4. Course Course Course Narrative: This is a rapid medical exam: Additional HPI, ROS, PE not included below will be deferred to primary provider. Patient is a 67-year-old female with history of restrictive lung disease following Covid infection presenting to the emergency department with shortness of breath and fatigue. Was diagnosed with influenza A on 03/30, continued to feel short of breath, called bookmaker's clerk on Saturday who prescribed prednisone and doxycycline. Denies recent fevers. Denies chest pain. Reports O2 sats below 90% at home with ambulation. Also feels lightheaded with exertion. No lower extremity edema or calf tenderness. Lung sounds diminished throughout. Plan: EKG, labs, CXR Medical Decision Making Medical Decision Making MDM Narrative: 67-year-old female with history and clinical presentation consistent with viral syndrome and influenza A. There are no additional findings are concerns to suggest development of bacterial pneumonia. Discussed at great length with patient regarding the use of her albuterol inhaler, she did in door course some reluctance to use 2 puffs as she does not like the way that it makes her feel. Therefore, we discussed using 1 puff every 4-6 hours for feelings of shortness of breath as well as initiating therapy with an incentive spirometer given the fact that on clinical exam she appears to have bilateral atelectasis. She is oxygenating well on room air, no tachypnea or increased work of breathing and no longer appears diaphoretic and actually states that she does better than she did when she was initially evaluated here. I reviewed all investigations and hematologic indices are without leukocytosis/thrombocytopenia/anemia, there is a stable left shift noted. Chemistry indices are noted to be grossly stable and troponin level is undetectable although I had no suspicion for cardiac ischemia as an etiology for patient's symptoms. Chest x-ray does not demonstrate any pneumonia and otherwise my interpretation is in agreement with radiology's impression. Evaluated patient's oxygenation while ambulating and she was noted to maintain 94% oxygenation with mild increase in tachypnea. Differential Diagnosis Differential Diagnoses: The differential diagnosis associated with the presentation includes Please see the discussion above Lab Data MDM Lab Attestation statement: I reviewed the patient's lab results. Please see the discussion above 04/04/23 16:49 04/04/23 16:49 Labs: Lab Results 04/04/23 04/04/23 04/04/23 Range/Units 16:49 16:49 16:49 WBC 9.0 (4.8-10.8) X10*3/uL RBC 4.45 (4.20-5.50) X10*6/uL Hgb 13.1 (12.0-16.0) g/dl Hct 40.9 (37.0-47.0) % MCV 91.9 (80.0-98.0) fL MCH 29.4 (27.0-33.0) pg MCHC 32.0 (31.0-35.0) g/dl RDW 13.7 (11.0-16.0) % Plt Count 383 D (160-400) X10*3/uL MPV 10.8 (9.4-12.3) fL Immature Gran % (Auto) 2.3 H (0.0-0.4) % Neut % (Auto) 78.7 H (45-73) % Lymph % (Auto) 12.0 L (20-40) % [place] % (Auto) 6.9 (2-11) % Eos % (Auto) 0.0 (0-4) % Baso % (Auto) 0.1 (0-2) % Lymph # (Auto) 1.1 L (1.2-4.9) X10*3/uL [place] # (Auto) 0.6 (0.1-1.2) X10*3/uL Eos # (Auto) 0.0 (0.0-0.4) X10*3/uL Baso # (Auto) 0.0 (0.0-0.2) X10*3/uL Abs Immat Gran (auto) 0.21 H (0.00-0.03) X10*3/uL Absolute Neuts (auto) 7.1 (2.0-8.3) x10*3/uL Absolute Nucleated RBC 0.000 (0.0-0.012) X10*3/uL Nucleated RBC % (auto) 0.0 (0.0-0.2) /100WBC Sodium 143 (135-145) mmol/L Potassium 4.1 (3.3-5.1) mmol/L Chloride 108 (96-108) mmol/L Carbon Dioxide 27 (22-29) mmol/L Anion Gap 12 (12-20) BUN 13 (9-16) mg/dL Creatinine 0.84 (0.5-1.4) mg/dL Estim Creat Clear Calc 77.4 Estimated GFR > 60 Random Glucose 130 H (60-115) mg/dL Calcium 10.4 H D (8.4-10.2) mg/dL Troponin I High Sens < 2.7 (<3.5-17.0) ng/L Independent Interpretation I performed an independent interpretation of an: EKG Interpretation: Normal sinus rhythm, HR-87, no STEMI, [place]/QRS/QTC is within normal limits. Radiology Impression Radiologist Impression: No pneumonia, otherwise my interpretation is in agreement with radiology's impression. External Record Review External record reviewed: Office record, Outpatient record and Prior outpatient labs Discharge Plan Discharge Clinical Impression: Influenza A, Viral syndrome Patient Disposition: Home, Self-Care Instructions: How to Use an Incentive Spirometer (ED), Influenza (ED), Viral Syndrome (ED) Additional Instructions: 1. Resume all home medications as prescribed. 2. Recommend that you use your albuterol inhaler, only 1 puff to minimize the side effects for your comfort, every 4-6 hours as needed for shortness of breath. 3. Please using incentive spirometer as recommended to help prevent developing a bacterial pneumonia. 4. Please follow-up with Dr. Guzman on Saturday morning. Return to the ER for any worsening symptoms. Prescriptions: No Action clomipramine 25 mg capsule 75 mg PO BEDTIME Qty: 270 3RF aripiprazole [Abilify] 5 mg tablet 5 mg PO BEDTIME Qty: 90 1RF quetiapine 25 mg tablet 25 mg PO DIRECTED Qty: 90 2RF Rx Instructions: 1 TAB 2 X DAY MAY ALSO TAKE AN EXTRA 2 TABS DAILY NEEDED paroxetine HCl 40 mg tablet 40 mg PO DAILY 90 Days Qty: 90 1RF doxycycline hyclate 100 mg capsule 100 mg PO BID 10 Days Qty: 20 0RF prednisone 20 mg tablet See Rx Instructions PO DAILY 10 Days Qty: 15 0RF Rx Instructions: PO daily; Take 2 tabs daily x 5 days, then 1 tablet daily x 5 days omeprazole magnesium [Prilosec OTC] 20 mg Tablet,Delayed Release (Dr/Ec) 20 mg PO DAILY propranolol 10 mg tablet 10 mg PO DAILY PRN (Reason: Anxiety) Patient Comments: Patient stated she consulted with Dr Williamson and now is taking PRN for anxiety. Trelegy Ellipta 200-62.5-25 mcg blister with device 1 ea inhalation DAILY quetiapine 100 mg tablet 200 mg PO BEDTIME Qty: 60 0RF Rx Instructions: 200-250 mg bedtime albuterol sulfate 90 mcg/actuation HFA aerosol inhaler 2 inh inhalation Q6H PRN (Reason: shortness of breath or wheezing) 30 Days Qty: 18 12RF clonazepam [Klonopin] 1 mg tablet 1 mg PO DIRECTED Qty: 45 2RF Rx Instructions: 1/2 tab in the am 1 tab bedtime lorazepam 1 mg tablet 1 mg PO BID PRN (Reason: Anxiety) Qty: 30 0RF Referrals: July Estrella NP [Primary Care Provider] -
--- NOTE | 2023-04-04 16:26 | ECG_ITS ---
Test Reason : dyspnea Blood Pressure : / mmHG Vent. Rate : 087 BPM Atrial Rate : 087 BPM P-R Int : 154 ms QRS Dur : 084 ms QT Int : 350 ms P-R-T Axes : 056 -05 060 degrees QTc Int : 421 ms Normal sinus rhythm Nonspecific ST and T wave abnormality Abnormal ECG When compared with ECG of 30-MAR-2023 06:43, Nonspecific T wave abnormality now evident in Inferior leads Nonspecific T wave abnormality, worse in Lateral leads Referred By: Awa Valentino Electronically Signed By:KORTNEY HARDIN MD
[2023-04-04 17:09] LABS: MANUAL DIFF FLAG NO
[2023-04-04 17:11] LABS: Basophils Percent Auto 0.1 % (0-2); Hematocrit 40.9 % (37.0-47.0); Hemoglobin 13.1 g/dl (12.0-16.0); Imm Gran Abs Auto 0.21 X10*3/uL (0.00-0.03); Imm Gran Pct Auto 2.3 % (0.0-0.4); Lymphocytes Absolute Auto 1.1 X10*3/uL (1.2-4.9); Mean Corpuscular Hemoglobin 29.4 pg (27.0-33.0); Mean Corpuscular Volume 91.9 fL (80.0-98.0); Mean Platelet Volume 10.8 fL (9.4-12.3); Monocytes Absolute Auto 0.6 X10*3/uL (0.1-1.2); Monocytes Percent Auto 6.9 % (2-11); Neutrophils Absolute Auto 7.1 x10*3/uL (2.0-8.3); Neutrophils Percent Auto 78.7 % (45-73); Platelet Count 383 X10*3/uL (160-400); Red Blood Count 4.45 X10*6/uL (4.20-5.50); Red Cell Distribution Width 13.7 % (11.0-16.0)
[2023-04-04 17:24] LABS: Anion Gap 12 (12-20); Blood Urea Nitrogen 13 mg/dL (9-16); Calcium 10.4 mg/dL (8.4-10.2); Carbon Dioxide 27 mmol/L (22-29); Chloride 108 mmol/L (96-108); Creatinine Clr Calc Pharmacy 77.4; Estimated Glomerular Filt Rate > 60; Glucose Random 130 mg/dL (60-115); Potassium 4.1 mmol/L (3.3-5.1); Sodium 143 mmol/L (135-145)
[2023-04-04 17:39] LABS: Troponin-I High Sensitivity < 2.7 ng/L (<3.5-17.0)
[2023-04-04 21:25] VITALS: BP 131/80; PULSE 85; RESP 18; TEMP 36.8; O2SAT 96
[2023-04-04 21:28] VITALS: O2SAT 97
--- NOTE | 2023-04-04 21:50 | PC.NURSE ---
Pt A&Ox4, reports pain when coughing with chills and not feeling well. Pt reports dry cough since being dx with Flu 10 days ago. Pt soft spoken, speaking in full sentences, Sao2 97% on RA, RR 18, no respiratory distress noted, lung sounds crackle to bases, incentive spirometer given and taught to use. Pt ambulated with o2 sat monitor, Pt maintained at 94% on RA.
[2023-04-04 21:59] VITALS: O2SAT 94
== END 2023-04-04 22:05 | disposition home or self-care (01) ==
PROVIDERS: Registered Nurse Emergency; Emergency Provider Student in an Organized Health Care Education/Training Program; PCP Nurse Practitioner Family
DX: J10.1 Influenza due to other identified influenza virus with other respiratory manifestations (principal); B34.9 Viral infection, unspecified; R06.02 Shortness of breath; R05.9 Cough, unspecified; Z20.822 Contact with and (suspected) exposure to COVID-19; Z20.828 Contact with and (suspected) exposure to other viral communicable diseases; Z79.899 Other long term (current) drug therapy
CPT/HCPCS: 36415; 71046; 80048; 84484; 85025; 93005; 99283; 99284

== ENCOUNTER → 2023-04-04 16:26 | Outpatient (BNV) | payer MEDICARE, SELFPAY | PROVIDERS: Emergency Provider Student in an Organized Health Care Education/Training Program; PCP Nurse Practitioner Family; Visit Provider Internal Medicine Cardiovascular Disease | DX: R94.31 Abnormal electrocardiogram [ECG] [EKG] (principal) | CPT/HCPCS: 93010 ==

== ENCOUNTER 2023-05-01 09:29 | Outpatient (AMB) | payer MEDICARE, SELFPAY ==
--- NOTE | 2023-05-01 09:44 | MHC.OFFVIS ---
Intake Vital Signs 05/01/23 09:46 Height 5 ft 7 in Weight 214 lb 15.211 oz BMI 33.7 BP 134/78 Blood Pressure Location Lt brachial Position Sitting Pulse 92 Pulse Source Pulse Oximeter Pulse Oximetry (%) 98 Oxygen Delivery Method Room Air Intake Visit Reasons: ild Critical Care Nurse Required: No Allergies shellfish derived [SHELLFISH DERIVED] Allergy (Severe, Verified 05/01/23 09:49) DIFFICULTY BREATHING pseudoephedrine [From SUDAFED] Allergy (Intermediate, Verified 05/01/23 09:49) AGITATION pregabalin [From Lyrica] Allergy (Verified 05/01/23 09:49) Dizziness HPI HPI Comments History of Present Illness Details The patient is a 66-year-old woman who apparently was in her usual state health until sometime in the spring when she developed severe COVID. She had severe pneumonia with acute hypoxic respiratory failure and was admitted to [facility]. Her condition worsened to the point that she needed to be intubated which she spent some time in the ICU. She was able to recover in she was liberated from the ventilator and placed on oxygen. Subsequently after that she was able to be discharged. Ever since then her respiratory status has not been the same. She has been complaining of shortness of breath with minimal activity. She does have a history of PTSD and sometimes when she does get short of breath she starts to panic that she is not sure visit her anxiety causing the shortness of breath or if the shortness of breath is worsening her anxiety. The patient did have a repeat chest x-ray sometime in March 2022 which I personally reviewed demonstrating interval resolution of the airspace disease. In addition to that she she recently underwent pulmonary function studies at [facility]. I also reviewed does which demonstrated a mild degree of restriction and also mild degree of diffusion impairment. This changes are likely due to her severe COVID. During the visit we did go for brief walking oximetry. The patient was able to maintain a saturation of 95% with ambulation. She became more short of breath with dyspnea score 5/10 1 heart rate increased over 100. on examination the patient does have some end expiratory wheezing. And also some end expiratory coughing also consistent with small airways disease. Will go ahead and treat her with respiratory therapy and also the patient will benefit significantly from pulmonary rehabilitation. 10/02/2022 the patient is here for a pulmonary follow-up visit. The patient overall is doing better. She did go on a cruise to [place] and [place]. She had a great time but she got sick with a viral syndrome. When she got back she did go to the ER. She was swabbed for flu, RSV and COVID-19 will negative. Her chest x-ray demonstrated some evidence of bronchitis. The patient was treated conservatively. She does continue to use the Trelegy inhaler. This has been helpful. Although, she feels like she also needs a rescue inhaler. I was summoned to the pharmacy. The patient has not started pulmonary rehab as of yet. This will be coming up soon. Also to note, the patient did have blood work when she went to the ER and she did have evidence transaminitis. The patient also has some abdominal discomfort on palpation with some voluntary guarding of the right upper quadrant. Therefore, is resolved for her to get an ultrasound at this time. She is already status post cholecystectomy. Otherwise patient is without any other complaints. Will follow-up in 4-6 months. 05/01/2023 The patient is here for a pulmonary follow up vist. She went to [place] and became sick on her way back. She developed and cough and URI. Was evaluated by her PCP then by an urgent care. She had a CXR done. Flu swab was positive, but too late for Tamiflu. Her symptoms worsened with congested cough and wheezing. She called the office and we sent her prednisone and Doxycycline. Currently, she is better. Concerned because when she was sick, she did not respond to the albuterol HFA. We will provide her a nebulizer. We reviewed her PFTs demonstrating a restrictive lung disease process. She will need a CT chest to better assess for interstitial lung disease. She will start pulmonary rehab. She prefers [facility]. [facility] Medical History (Updated 05/01/23 @ 23:13 by Hero Guzman MD) Chronic restrictive lung disease COVID-19 Dyspnea Fatty liver Flu GERD (gastroesophageal reflux disease) Hepatitis History of COVID-19 History of hyperglycemia History of shingles IBS (irritable bowel syndrome) Osteopenia Small airways disease Stress incontinence Surgical History History of adenoidectomy History of appendectomy History of cholecystectomy Hx of tonsillectomy Social History Household Members: Spouse and Children Household Members Other:: N/A Housing: House Do you presently have visiting nurse or other home services: No Alcohol intake: never Patient Tobacco Use Status: Never used Tobacco e-Cigarette/Vaping Use: Never Used Second Hand Smoke Exposure: No service: No Sexual orientation: Straight/Heterosexual Review of Systems Const Denies malaise and Denies weight gain Eyes Denies change in vision ENT Denies change in voice Card Denies chest pain and Reports dyspnea on exertion Resp Reports cough, Denies pain on inspiration, Denies pain with cough and Reports dyspnea on exertion GI Reports no additional complaints Musc Reports no additional complaints Skin/Breast Denies rash Neuro Reports no additional complaints Psych Reports as per HPI Dougie/Lymph Denies easy bleeding and Denies easy bruising Physical Exam Vital Signs: Last Vital Signs Pulse 92 05/01/23 09:46 BP 134/78 05/01/23 09:46 Pulse Ox 98 05/01/23 09:46 Oxygen Delivery Method Room Air 05/01/23 09:46 BMI result Body Mass Index 33.7 Const General: comfortable HEENT Head: Yes normal to inspection Eyes General: appearance normal, both eyes and all related structures Neck Neck: Yes supple Chest Chest palpation & inspection: normal inspection of the chest Resp Effort & Inspection: normal respiratory effort Auscultation: no wheezes (end expiration) Cardio Rate: regular rate Rhythm: regular rhythm Heart sounds: S1 normal heart sound present and S2 normal heart sound present GI Palpation (GI): Soft to palpation and Tenderness to palpation present (GI) in the RUQ Auscultation: normal bowel sounds Skin Rashes: no rashes Extrem General: Yes no clubbing, cyanosis or edema Immunizations pneumoc 20-david conj-dip cr(PF) Performing Provider: Hero Guzman MD Administered by: Staci Rayo LPN on 05/01/23 10:57 Dose Route Admin Location Lot Number Expiration Date [employer] Automatic 0.5 mL IM Left Deltoid [id number] 07/23/24 7627-4515-69 [employer] VIS Given Date VIS Provided VIS Publication Date 05/01/23 Single Vaccine 23 Eligibility Eligibility Date Funding Source Not [facility] Eligible 05/01/23 Private Assessment & Plan Assessment & Plan (1) Chronic restrictive lung disease: Code(s): J98.4 - Other disorders of lung (2) Small airways disease: Code(s): J98.4 - Other disorders of lung (3) Flu: Code(s): J11.1 - Influenza due to unidentified influenza virus with other respiratory manifestations (4) Dyspnea: Code(s): R06.00 - Dyspnea, unspecified Qualifiers: Dyspnea type: dyspnea on exertion Qualified Code(s): R06.09 - Other forms of dyspnea Plan continue Trelegy daily BARBARA as needed provided a nebulizer Start Pulmonary rehab CT chest F/U 3 months Orders: Orders CT chest wo IV con 2 Months J98.4 - Other disorders of lung Pneumococcal 20 Immunization Today Z23 - Encounter for immunization Medications: New albuterol sulfate 2.5 mg (3 mL) inhalation Q6H PRN 90 mL 11RF shortness of breath or wheezing 30 days F43.10 - Post-traumatic stress disorder, unspecified Discontinued quetiapine may take extra 1/2-1 up tp 2 x day 200 mg (2 x 100 mg) PO BEDTIME 90 days 180 tabs 1RF clonazepam Take 1/2 tab BID 0.5 mg (1/2 x 1 mg) PO BID 60 tabs 2RF propranolol 10 mg PO DAILY PRN 90 tabs 1RF for anxiety quetiapine max 3 x 24 hrs 25 mg PO Q6H PRN 90 tabs 1RF anxiety Coding Level of Care Code Est Pt Level 4 (21812) Diagnoses Chronic restrictive lung disease J98.4 Small airways disease J98.4 Flu J11.1 Dyspnea R06.09 Dyspnea type: dyspnea on exertion Time Spent (min) 20
[2023-05-01 09:46] VITALS: BP 134/78; PULSE 92; O2SAT 98; BMI 33.7
== END 2023-05-01 10:23 | disposition home or self-care (01) ==
PROVIDERS: PCP Nurse Practitioner Family; Visit Provider Hospitalist
DX: J98.4 Other disorders of lung (principal); J11.1 Influenza due to unidentified influenza virus with other respiratory manifestations; R06.09 Other forms of dyspnea
CPT/HCPCS: 99214

== ENCOUNTER → 2023-05-01 09:29 | Outpatient (BNVA) | payer MEDICARE, SELFPAY | PROVIDERS: PCP Nurse Practitioner Family; Visit Provider Hospitalist | DX: Z23 Encounter for immunization (principal); J98.4 Other disorders of lung; J11.1 Influenza due to unidentified influenza virus with other respiratory manifestations; R06.09 Other forms of dyspnea | CPT/HCPCS: 90471; 90677; 99212 ==

== ENCOUNTER 2023-06-17 14:05 | Outpatient (AMB) | payer MEDICARE, SELFPAY ==
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
== END 2023-06-17 14:35 | disposition home or self-care (01) ==
LOC: HO.HOP 14:05
PROVIDERS: PCP Nurse Practitioner Family; Visit Provider Psychiatry & Neurology Psychiatry
DX: F42.9 Obsessive-compulsive disorder, unspecified (principal); F43.10 Post-traumatic stress disorder, unspecified; F32.5 Major depressive disorder, single episode, in full remission
CPT/HCPCS: 99214

== ENCOUNTER → 2023-06-17 14:05 | Outpatient (BNVA) | payer MEDICARE, SELFPAY | PROVIDERS: PCP Nurse Practitioner Family; Visit Provider Psychiatry & Neurology Psychiatry | DX: F42.9 Obsessive-compulsive disorder, unspecified (principal); F43.10 Post-traumatic stress disorder, unspecified; F32.5 Major depressive disorder, single episode, in full remission | CPT/HCPCS: 99212 ==

== ENCOUNTER 2023-06-26 07:43 | Outpatient (REF) | payer MEDICARE, SELFPAY | END 2023-06-26 07:44 | disposition home or self-care (01) | LOC: HO.CT 07:43 | PROVIDERS: PCP Nurse Practitioner Family; Visit Provider Hospitalist | DX: J98.4 Other disorders of lung (principal) | CPT/HCPCS: 71250 ==

== ENCOUNTER → 2023-07-10 09:15 | Outpatient (BNV) | payer MEDICARE, SELFPAY | PROVIDERS: Visit Provider Psychiatry & Neurology Psychiatry | DX: F33.9 Major depressive disorder, recurrent, unspecified (principal); F42.9 Obsessive-compulsive disorder, unspecified; F43.10 Post-traumatic stress disorder, unspecified | CPT/HCPCS: 90792; 99213 ==

== ENCOUNTER 2023-07-22 11:00 | Outpatient (RCR) | payer MEDICARE, SELFPAY ==
[2023-07-09 13:03] VITALS: BP 122/74; PULSE 80; TEMP 37
[2023-07-09 13:06] VITALS: BMI 35.0
--- NOTE | 2023-07-09 13:58 | PC.ADMIT ---
Patient is a 67 year old female who was referred to [facility] by her therapist d/t increased depression, anxiety, reports AH of a male or a females voice calling her name. She stated in the past when she has heard voices they were angry however they are not angry at present. Also reports hearing music and stated this has happened to her in the past when feeling increasingly anxious. She also reports at times smelling a lite cigarette which she has not experienced in the past. Patient reports stressors include her best friend who was recently dx with breast cancer who underwent a mastectomy, her mother in law who suddenly last June, and her own medical issues including recently finding a lump on her R breast and has an upcoming diagnostic mammogram as a result. She also has another f/u appointment after findings of ground-glass opacity on her lung. Feeling overwhelmed and anxious. Alida currently presents with depressed mood and anxious affect. Denied SI. Did not appear to be responding to any internal stimuli. Thoughts were clear and organized.
--- NOTE | 2023-07-09 19:40 | HO.PHPPROGNO ---
Subjective Subjective Date of Service: 07/09/23 Reason For Visit: PTSD,OCD,MDD Diagnostics Vital Signs (24Hr): Vital Signs - 24 hr 07/09/23 13:03 Temperature 98.6 F Pulse Rate 80 Blood Pressure 122/74 BMI result Body Mass Index 35.0 Assessment & Plan Certification I certify that partial hospital treatment is medically necessary due to the symptoms and problems resulting from the patient's mental illness and the failure to treat the patient at the partial hospital level of care would likely result in the patient requiring inpatient psychiatric care which could not be prevented at a less intensive level of care. Total time managing care of this patient today ____ minutes. Discharge Plan Discharge Attending provider: Clotilde Brewer Medications: No Action aripiprazole [Abilify] 5 mg tablet 5 mg PO BEDTIME Qty: 90 1RF quetiapine 25 mg tablet 25 mg PO DIRECTED Qty: 90 2RF Rx Instructions: 1 TAB 2 X DAY MAY ALSO TAKE AN EXTRA 2 TABS DAILY NEEDED paroxetine HCl 40 mg tablet 40 mg PO DAILY 90 Days Qty: 90 1RF quetiapine 100 mg tablet 200 mg PO BEDTIME Qty: 70 0RF Rx Instructions: 200-250 mg bedtime clomipramine 25 mg capsule 75 mg PO BEDTIME Qty: 90 1RF omeprazole magnesium [Prilosec OTC] 20 mg Tablet,Delayed Release (Dr/Ec) 20 mg PO DAILY propranolol 10 mg tablet 10 mg PO DAILY PRN (Reason: Anxiety) Patient Comments: Patient stated she consulted with Dr Williamson and now is taking PRN for anxiety. Trelegy Ellipta 200-62.5-25 mcg blister with device 1 ea inhalation DAILY albuterol sulfate 90 mcg/actuation HFA aerosol inhaler 2 inh inhalation Q6H PRN (Reason: shortness of breath or wheezing) 30 Days Qty: 18 12RF polymyxin B sulf-trimethoprim 10,000 unit- 1 mg/mL drops 1 drp ophthalmic (eye) Q3H albuterol sulfate 2.5 mg /3 mL (0.083 %) solution for nebulization 2.5 mg inhalation Q6H PRN (Reason: shortness of breath or wheezing) 30 Days Qty: 90 11RF clonazepam [Klonopin] 1 mg tablet 1 mg PO DIRECTED Qty: 45 2RF Rx Instructions: 1/2 tab in the am 1 tab bedtime lorazepam 1 mg tablet 1 mg PO BID PRN (Reason: Anxiety) Qty: 30 0RF
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
--- NOTE | 2023-07-11 09:05 | PC.NURSE ---
Patient stated she slipped on water on the floor at home and fell. She reports she hit her head, neck, thigh, and elbow. She stated she is ok, no c/o pain, however thinks she will be sore tomorrow. She does not want to f/u with her PCP at this time. She stated she had a medication increase of Seroquel from 200 to 250 mg and she took a whole tab of Klonopin (which she is prescribed) however she stated she normally takes a 1/2 tab. She stated she felt groggy this morning and fell asleep while drinking her coffee and her coffee spilled. She is currently alert and oriented x4. Will Review with Dr Brewer and patient requested to see Dr Brewer today as well.
--- NOTE | 2023-07-11 15:45 | HO.PHPPROGNO ---
Subjective Subjective Date of Service: 07/11/23 Reason For Visit: PTSD,OCD,MDD Interim History: Patient seen by request, she had a fall at home this morning. Last night she reportedly took 1 mg of clonazepam rather than her usual 0.5 mg dose. She attributes the fall. Says she was frustrated and upset by some feedback she received yesterday at the program. She is on 2nd night on elevated dose of Seroquel 250 mg. Denies any lightheadedness, faintness or dizziness. Has been tolerating the medicaiton. SHe also notes disrupted sleep last night, snores, got up to sleep on couch. [place] groggy getting up this morning. Continues to hear voices calling her at times and music, each day, occurs when feeling stressed or embarrassed. She rates the AH as a 3 / 10 in intensity, same rating on admission, no change. Given fall, we will hold off at 250 mg, prioritize safety and see how she is feeling after the weekend. PRns underutilized, she can use prn medications for acute anxiety/AH in the interim. SHe is agreeable with plan. Mental Status Exam Mental Status Exam Narrative: Pleasant, tired. Dysthymic, anxious.No evidence of thought disorder. Thought content relevant to stressors and symptoms/AH but otherwise no paranoia, delusional thoughts or other perceptual disturbances except for AH. Denies any thoughts of harming self or others. Alert and oriented x3. Cognition grossly intact. Insight and judgment intact. Diagnostics Vital Signs (24Hr): BMI result Body Mass Index 35.0 Assessment & Plan Assessment & Plan (1) OCD (obsessive compulsive disorder): Status: Acute Code(s): F42.9 - Obsessive-compulsive disorder, unspecified (2) PTSD (post-traumatic stress disorder): Status: Acute Code(s): F43.10 - Post-traumatic stress disorder, unspecified (3) Major depression, recurrent, chronic: Status: Acute Code(s): F33.9 - Major depressive disorder, recurrent, unspecified Certification I certify that partial hospital treatment is medically necessary due to the symptoms and problems resulting from the patient's mental illness and the failure to treat the patient at the partial hospital level of care would likely result in the patient requiring inpatient psychiatric care which could not be prevented at a less intensive level of care. Total time managing care of this patient today __30__ minutes. Discharge Plan Discharge Attending provider: Clotilde Brewer Medications: No Action aripiprazole [Abilify] 5 mg tablet 5 mg PO BEDTIME Qty: 90 1RF quetiapine 25 mg tablet 25 mg PO DIRECTED Qty: 90 2RF Rx Instructions: 1 TAB 2 X DAY MAY ALSO TAKE AN EXTRA 2 TABS DAILY NEEDED paroxetine HCl 40 mg tablet 40 mg PO DAILY 90 Days Qty: 90 1RF quetiapine 100 mg tablet 200 mg PO BEDTIME Qty: 70 0RF Rx Instructions: 200-250 mg bedtime clomipramine 25 mg capsule 75 mg PO BEDTIME Qty: 90 1RF omeprazole magnesium [Prilosec OTC] 20 mg Tablet,Delayed Release (Dr/Ec) 20 mg PO DAILY Trelegy Ellipta 200-62.5-25 mcg blister with device 1 ea inhalation DAILY albuterol sulfate 90 mcg/actuation HFA aerosol inhaler 2 inh inhalation Q6H PRN (Reason: shortness of breath or wheezing) 30 Days Qty: 18 12RF albuterol sulfate 2.5 mg /3 mL (0.083 %) solution for nebulization 2.5 mg inhalation Q6H PRN (Reason: shortness of breath or wheezing) 30 Days Qty: 90 11RF clonazepam [Klonopin] 1 mg tablet 1 mg PO DIRECTED Qty: 45 2RF Rx Instructions: 1/2 tab in the am 1 tab bedtime lorazepam 1 mg tablet 1 mg PO BID PRN (Reason: Anxiety) Qty: 30 0RF
--- NOTE | 2023-07-12 08:22 | HO.PHP ---
The clients case was reviewed and opened in treatment team.
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
--- NOTE | 2023-07-25 11:54 | PC.NURSE ---
Alida called out of the program sick on 07/23/23. Shyann f/u with her and she decided she is ready to discharge from the program.
== END 2023-07-22 23:59 | disposition home or self-care (01) ==
LOC: HO.PHPA 11:00
PROVIDERS: Visit Provider Psychiatry & Neurology Psychiatry
DX: F43.10 Post-traumatic stress disorder, unspecified (principal); F33.2 Major depressive disorder, recurrent severe without psychotic features; F42.9 Obsessive-compulsive disorder, unspecified
CPT/HCPCS: 90791; 90853

== ENCOUNTER 2023-07-31 09:40 | Outpatient (AMB) | payer MEDICARE, SELFPAY ==
[2023-07-31 09:57] VITALS: BP 128/70; PULSE 87; O2SAT 95; BMI 33.7
--- NOTE | 2023-07-31 09:57 | A.OFFVIS_ITS ---
Intake Vital Signs 07/31/23 09:57 Height 5 ft 7 in Weight 215 lb BMI 33.7 BP 128/70 Blood Pressure Location Lt brachial Position Sitting Pulse 87 Pulse Source Pulse Oximeter Pulse Oximetry (%) 95 Oxygen Delivery Method Room Air Intake Visit Reasons: ild Wardrobe Custodian Required: No Allergies shellfish derived [SHELLFISH DERIVED] Allergy (Severe, Verified 07/31/23 10:00) DIFFICULTY BREATHING pseudoephedrine [From SUDAFED] Allergy (Intermediate, Verified 07/31/23 10:00) AGITATION pregabalin [From Lyrica] Allergy (Verified 07/31/23 10:00) Dizziness HPI HPI Comments History of Present Illness Details The patient is a 67-year-old woman who apparently was in her usual state health until sometime in the spring when she developed severe COVID. She had severe pneumonia with acute hypoxic respiratory failure and was admitted to [facility]. Her condition worsened to the point that she needed to be intubated which she spent some time in the ICU. She was able to recover in she was liberated from the ventilator and placed on oxygen. Subsequently after that she was able to be discharged. Ever since then her respiratory status has not been the same. She has been complaining of shortness of breath with minimal activity. She does have a history of PTSD and sometimes when she does get short of breath she starts to panic that she is not sure visit her anxiety causing the shortness of breath or if the shortness of breath is worsening her anxiety. The patient did have a repeat chest x-ray sometime in March 2022 which I personally reviewed demonstrating interval resolution of the airspace disease. In addition to that she she recently underwent pulmonary function studies at [facility]. I also reviewed does which demonstrated a mild degree of restriction and also mild degree of diffusion impairment. This changes are likely due to her severe COVID. During the visit we did go for brief walking oximetry. The patient was able to maintain a saturation of 95% with ambulation. She became more short of breath with dyspnea score 5/10 1 heart rate increased over 100. on examination the patient does have some end expiratory wheezing. And also some end expiratory coughing also consistent with small airways disease. Will go ahead and treat her with respiratory therapy and also the patient will benefit significantly from pulmonary rehabilitation. 10/02/2022 the patient is here for a pulm onary follow-up visit. The patient overall is doing better. She did go on a cruise to [place] and [place]. She had a great time but she got sick with a viral syndrome. When she got back she did go to the ER. She was swabbed for flu, RSV and COVID-19 will negative. Her chest x-ray demonstrated some evidence of bronchitis. The patient was t reated conservatively. She does continue to use the Trelegy inhaler. This has been helpful. Although, she feels like she also needs a rescue inhaler. I was summoned to the pharmacy. The patient has not started pulmonary rehab as of yet. This will be coming up soon. Also to note, the patient did have blood work when she went to the ER and she did have evidence transaminitis. The patient also has some abdominal discomfort on palpation with some voluntary guarding of the right upper quadrant. Therefore, is resolved for her to get an ultrasound at this time. She is already status post cholecystectomy. Otherwise patient is without any other complaints. Will follow-up in 4-6 months. 05/01/2023 [facility] She went to [place] and became sick on her way back. She developed and cough and URI. Was evaluated by her PCP then by an urgent care. She had a CXR done. Flu swab was positive, but too late for Tamiflu. Her symptoms worsened with congested cough and wheezing. She called the office and we sent her prednisone and Doxycycline. Currently, she is better. Concerned because when she was sick, she did not respond to the albuterol HFA. We will provide her a nebulizer. We reviewed her PFTs demonstrating a restrictive lung disease process. She will need a CT chest to better assess for interstitial lung disease. She will start pulmonary rehab. She prefers [facility]. 07/31/2023 the patient is here for a pul onwarren follow-up visit. The patient overall has been feeling better. She continues on the Trelegy inhaler. She has not required her rescue inhaler. Does have a need to make often nonproductive in nature. Again, over the summer she did have the flu. She was treated accordingly. She did have a CT scan of the chest that we personally reviewed to assess her abnormal PFTs. It appears that she does have some small areas of ground-glass opacities bilateral the bases. Again this is minimal. The patient is also cough from a recent respiratory illness but at this point she is improved. Could have been a prodrome all findings before she became ill with her recent infection. Could also have been residual effects from the viral syndromes that she has had in the past. Although inflammatory conditions are still in the differential. Therefore will go ahead and request blood work to assess for inflammatory changes. The patient also can call the office if she develops worsening cough so we can give her some additional therapies. Will plan to repeat the CT scan in 6 months to make sure that ground-glass opacities subsided and then will follow up with her then. [facility] Medical History (Updated 07/31/23 @ 19:30 by Hero Guzman MD) Pneumonitis Dyspnea Flu Osteopenia History of hyperglycemia Fatty liver Hepatitis Small airways disease Chronic restrictive lung disease COVID-19 History of shingles History of COVID-19 Stress incontinence GERD (gastroesophageal reflux disease) IBS (irritable bowel syndrome) Surgical History History of adenoidectomy Hx of tonsillectomy History of appendectomy History of cholecystectomy Social History Household Members: Spouse and Other Household Members Other:: A son Housing: House Do you presently have visiting nurse or other home services: No Alcohol intake: never Patient Tobacco Use Status: Never used Tobacco e-Cigarette/Vaping Use: Never Used Second Hand Smoke Exposure: No service: No Sexual orientation: Straight/Heterosexual Review of Systems Const Denies malaise and Denies weight gain Eyes Denies change in vision ENT Denies change in voice Card Denies chest pain and Denies dyspnea on exertion Resp Denies cough, Denies pain on inspiration, Denies pain with cough and Denies dyspnea on exertion GI Reports no additional complaints Musc Reports no additional complaints Skin/Breast Denies rash Neuro Reports no additional complaints Psych Reports as per HPI Dougie/Lymph Denies easy bleeding and Denies easy bruising Physical Exam Vital Signs: Last Vital Signs Pulse 87 07/31/23 09:57 BP 128/70 07/31/23 09:57 Pulse Ox 95 07/31/23 09:57 Oxygen Delivery Method Room Air 07/31/23 09:57 BMI result Body Mass Index 33.7 Const General: comfortable HEENT Head: Yes normal to inspection Eyes General: appearance normal, both eyes and all related structures Neck Neck: Yes supple Chest Chest palpation & inspection: normal inspection of the chest Resp Effort & Inspection: normal respiratory effort Auscultation: clear to auscultation bilaterally and no wheezes (end expiration) Cardio Rate: regular rate Rhythm: regular rhythm Heart sounds: S1 normal heart sound present and S2 normal heart sound present GI Palpation (GI): Soft to palpation and Tenderness to palpation present (GI) in the RUQ Auscultation: normal bowel sounds Skin Rashes: no rashes Extrem General: Yes no clubbing, cyanosis or edema Results Reviewed Results Reviewed: [address] [address] [address] Scan Report Signed Patient: Alida Candelaria MR#: [id number] : 1955 Acct:[id number] Age/Sex: 67 / F ADM Date: 06/26/23 Loc: HO.CT Attending Dr: Hero Guzman MD Ordering Physician: Hero Guzman MD Date of Service: 06/26/23 Procedure(s): CT chest wo IV con Accession Number(s): [id number] cc: July [address] CAR MECHANIC; Hero Guzman MD~ EXAMINATION: CT CHEST WITHOUT CONTRAST CLINICAL INFORMATION: COPD COMPARISON: 04/04/2023 chest radiograph TECHNIQUE: Multidetector volumetric CT imaging of the chest was done. Axial MIP volume rendering provided. Sagittal and coronal reformatted images were obtained. This CT examination was performed using dose optimization techniques as appropriate, variously including the following: *Automated exposure control *Adjustment of mA and/or kV according to patient size (this includes techniques or standardized protocols for targeted exams where dose is matched to indication/reason for exam; i.e. extremities or head) *Use of iterative reconstruction technique DLP: 190 mGy-cm FINDINGS: LOCK STITCH CHANNELER: Negative LUNGS: Mild biapical pleural thickening. Trachea and bronchi are patent. Bilateral patchy groundglass opacities with lower lobe predominance, left greater than right are nonspecific and likely infectious. No suspicious pulmonary nodules. MEDIASTINUM: No thyroid abnormality. Couple small calcified subcarinal and right hilar lymph nodes. No pathologic lymphadenopathy. Nonenlarged heart. Trace pericardial fluid. Nonaneurysmal aorta with atherosclerotic calcifications and apparent right subclavian artery. Nonenlarged pulmonary arteries. CORONARY ARTERY CALCIFICATION: None visualized on this study. PLEURA: There is no pleural effusion. No pleural mass or thickening. AXILLA/CHEST WALL: Potential 5 mm right breast lesion, 3:29, 5:38. Correlate with mammography. No pathologic lymphadenopathy. UPPER ABDOMEN: Status post cholecystectomy. OSSEOUS STRUCTURES: Unremarkable. CT/CT chest wo IV con IMPRESSION: No suspicious lung nodules. Bilateral groundglass opacities, likely infectious. Consider CT follow-up in 3 months. Potential 5 mm right breast nodule. Correlate with mammography. Fleischner guidelines were followed. Dictated By: Mehnaz Rolle MD Signed By: <Electronically signed by Mehnaz Rolle MD in OV> 06/28/23 1408 DD/ 08 TD/TT: Speech Language Pathologist: Assessment & Plan Assessment & Plan (1) Chronic restrictive lung disease: Code(s): J98.4 - Other disorders of lung (2) Small airways disease: Code(s): J98.4 - Other disorders of lung (3) Pneumonitis: Comment: GGO Bibasilar Code(s): J98.4 - Other disorders of lung Plan continue Trelegy daily BARBARA as needed nebulizer pulmonary rehab CT chest in 6 months Bloodwork F/U 6 months Orders: Orders Complete Blood Count Auto Diff Today J98.4 - Other disorders of lung Hypersensitive Pneumonitis Prf Today J98.4 - Other disorders of lung, R91.8 - Other nonspecific abnormal finding of lung field CT chest wo IV con 6 Months J98.4 - Other disorders of lung Erythrocyte Sedimentation Rate Today J98.4 - Other disorders of lung MARIA TERESA Reflex Titer and Pattern Today J98.4 - Other disorders of lung Sjogren's Antibodies Today J98.4 - Other disorders of lung Coding Level of Care Code Est Pt Level 4 (36869) Diagnoses Chronic restrictive lung disease J98.4 Small airways disease J98.4 Pneumonitis J98.4 Time Spent (min) 17
== END 2023-07-31 10:19 | disposition home or self-care (01) ==
PROVIDERS: PCP Nurse Practitioner Family; Visit Provider Hospitalist
DX: J98.4 Other disorders of lung (principal)
CPT/HCPCS: 99214

== ENCOUNTER → 2023-07-31 09:40 | Outpatient (BNVA) | payer MEDICARE, SELFPAY | PROVIDERS: PCP Nurse Practitioner Family; Visit Provider Hospitalist | DX: J98.4 Other disorders of lung (principal) | CPT/HCPCS: 99212 ==

== ENCOUNTER 2023-08-01 15:32 | Outpatient (AMB) | payer MEDICARE, SELFPAY ==
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
== END 2023-08-01 17:29 | disposition home or self-care (01) ==
LOC: HO.HOP 15:32
PROVIDERS: PCP Nurse Practitioner Family; Visit Provider Psychiatry & Neurology Psychiatry
DX: F32.3 Major depressive disorder, single episode, severe with psychotic features (principal); F42.9 Obsessive-compulsive disorder, unspecified; F43.10 Post-traumatic stress disorder, unspecified
CPT/HCPCS: 90833; 99213

== ENCOUNTER → 2023-08-01 15:32 | Outpatient (BNVA) | payer MEDICARE, SELFPAY | PROVIDERS: PCP Nurse Practitioner Family; Visit Provider Psychiatry & Neurology Psychiatry | DX: F32.3 Major depressive disorder, single episode, severe with psychotic features (principal); F42.9 Obsessive-compulsive disorder, unspecified; F43.10 Post-traumatic stress disorder, unspecified | CPT/HCPCS: 90833; 99212 ==

== ENCOUNTER 2023-09-12 11:52 | Outpatient (AMB) | payer MEDICARE, SELFPAY ==
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
== END 2023-09-12 14:16 | disposition home or self-care (01) ==
LOC: HO.HOP 11:52
PROVIDERS: PCP Nurse Practitioner Family; Visit Provider Psychiatry & Neurology Psychiatry
DX: F32.4 Major depressive disorder, single episode, in partial remission (principal); F42.9 Obsessive-compulsive disorder, unspecified; F43.10 Post-traumatic stress disorder, unspecified
CPT/HCPCS: 90833; 99213

== ENCOUNTER → 2023-09-12 11:52 | Outpatient (BNVA) | payer MEDICARE, SELFPAY | PROVIDERS: PCP Nurse Practitioner Family; Visit Provider Psychiatry & Neurology Psychiatry | DX: F32.4 Major depressive disorder, single episode, in partial remission (principal); F42.9 Obsessive-compulsive disorder, unspecified; F43.10 Post-traumatic stress disorder, unspecified | CPT/HCPCS: 99212 ==

== ENCOUNTER 2023-11-06 11:50 | Emergency (ER) | payer MEDICARE, SELFPAY ==
--- NOTE | ~2023-11-06 | CT_ITS ---
CT HEAD WITHOUT IV CONTRAST CT CERVICAL SPINE WITHOUT IV CONTRAST INDICATION: Trauma. Rule out bleed/fracture. COMPARISON: None available. TECHNIQUE: Multidetector CT acquisitions of the head and cervical spine were obtained without IV contrast. Multiplanar reformats were acquired and utilized for image interpretation. This CT examination was performed using dose optimization techniques as appropriate, variously including the following: *Automated exposure control *Adjustment of mA and/or kV according to patient size (this includes techniques or standardized protocols for targeted exams where dose is matched to indication/reason for exam; i.e. extremities or head) *Use of iterative reconstruction technique FINDINGS: HEAD: Artifact versus trace acute subarachnoid hemorrhage within a few anterior right frontal sulci on image 27 of series 3 and image 38 of series 3. There is no hydrocephalus, extra-axial surface collection, midline shift, or other herniation pattern. Tim to white matter differentiation is diffusely maintained without evidence of an evolved acute territorial infarct. The basilar cisterns are preserved. Large high left posterior parietal scalp hematoma. There is no associated fracture. CERVICAL SPINE: Reversal of the cervical lordosis. There are no acute fractures and there are no acute subluxations. There are multilevel endplate osteophytes. Hypertrophic degenerative changes involving the atlantodental interval. Retropharyngeal course of the carotid arteries bilaterally. 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 CT/CT head/brain wo IV con IMPRESSION: - Artifact versus trace acute subarachnoid hemorrhage within a few anterior right frontal sulci on image 27 of series 3 and image 38 of series 3. - Large high left posterior parietal scalp hematoma. There is no associated fracture. - No acute osseous abnormality within the cervical spine.
--- NOTE | ~2023-11-06 | CT_ITS ---
CT HEAD WITHOUT IV CONTRAST CT CERVICAL SPINE WITHOUT IV CONTRAST INDICATION: Trauma. Rule out bleed/fracture. COMPARISON: None available. TECHNIQUE: Multidetector CT acquisitions of the head and cervical spine were obtained without IV contrast. Multiplanar reformats were acquired and utilized for image interpretation. This CT examination was performed using dose optimization techniques as appropriate, variously including the following: *Automated exposure control *Adjustment of mA and/or kV according to patient size (this includes techniques or standardized protocols for targeted exams where dose is matched to indication/reason for exam; i.e. extremities or head) *Use of iterative reconstruction technique FINDINGS: HEAD: Artifact versus trace acute subarachnoid hemorrhage within a few anterior right frontal sulci on image 27 of series 3 and image 38 of series 3. There is no hydrocephalus, extra-axial surface collection, midline shift, or other herniation pattern. Tim to white matter differentiation is diffusely maintained without evidence of an evolved acute territorial infarct. The basilar cisterns are preserved. Large high left posterior parietal scalp hematoma. There is no associated fracture. CERVICAL SPINE: Reversal of the cervical lordosis. There are no acute fractures and there are no acute subluxations. There are multilevel endplate osteophytes. Hypertrophic degenerative changes involving the atlantodental interval. Retropharyngeal course of the carotid arteries bilaterally. 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 CT/CT cervical spine wo IV con IMPRESSION: - Artifact versus trace acute subarachnoid hemorrhage within a few anterior right frontal sulci on image 27 of series 3 and image 38 of series 3. - Large high left posterior parietal scalp hematoma. There is no associated fracture. - No acute osseous abnormality within the cervical spine.
[2023-11-06 12:22] VITALS: BP 151/81; PULSE 88; RESP 18; TEMP 36.3; O2SAT 99; BMI 32.8
--- NOTE | 2023-11-06 12:25 | ED.FALL ---
HPI - Fall General Chief Complaint: Fall Stated Complaint: Head Pain S/P Fall 11/06/23 Time Seen by Provider: 11/06/23 14:19 Related Data Home Medications Medication Instructions Recorded Confirmed omeprazole magnesium 20 mg 20 mg PO DAILY 03/24/21 09/24/23 tablet,delayed release (Prilosec OTC) clonazepam 1 mg tablet (Klonopin) 0.5 mg PO DIRECTED 07/31/23 09/24/23 Previous Rx's Medication Instructions Recorded albuterol sulfate 90 mcg/actuation 2 inh inhalation Q6H PRN shortness 10/02/22 aerosol inhaler of breath or wheezing 30 days #18 grams quetiapine 25 mg tablet 25 mg PO DIRECTED #90 tabs 03/06/23 lorazepam 1 mg tablet 1 mg PO BID PRN Anxiety #30 tabs 03/28/23 albuterol sulfate 2.5 mg/3 mL 2.5 mg (3 mL) inhalation Q6H PRN 05/01/23 (0.083 %) solution for nebulization shortness of breath or wheezing 30 days #90 mL aripiprazole 5 mg tablet (Abilify) 5 mg PO BEDTIME #90 tabs 07/25/23 paroxetine HCl 40 mg tablet 40 mg PO DAILY 90 days #90 tabs 08/30/23 fluticasone fur. 200 mcg-umeclid 1 ea PO DAILY #60 ea 09/18/23 62.5 mcg-vilant 25 mcg inhalat.powder (Trelegy Ellipta) clomipramine 25 mg capsule 75 mg (3 x 25 mg) PO BEDTIME #90 10/09/23 caps clonazepam 0.5 mg tablet (Klonopin) 0.5 mg PO BEDTIME PRN insomnia #30 10/16/23 tabs quetiapine 100 mg tablet 300 mg (3 x 100 mg) PO BEDTIME 90 10/30/23 days #270 tabs Allergies Allergy/AdvReac Type Severity Reaction Status Date / Time shellfish derived Allergy Severe DIFFICULTY Verified 11/06/23 12:22 [SHELLFISH DERIVED] BREATHING pseudoephedrine Allergy Intermediate AGITATION Verified 11/06/23 12:22 [From SUDAFED] pregabalin [From Lyrica] Allergy Dizziness Verified 11/06/23 12:22 [facility] Past Medical History Medical History Pneumonitis Dyspnea Flu Osteopenia History of hyperglycemia Fatty liver Hepatitis Small airways disease Chronic restrictive lung disease COVID-19 History of shingles History of COVID-19 Stress incontinence GERD (gastroesophageal reflux disease) IBS (irritable bowel syndrome) Surgical History History of adenoidectomy Hx of tonsillectomy History of appendectomy History of cholecystectomy Social History Social History Household Members: Spouse and Other Household Members Other:: A son Housing: House Do you presently have visiting nurse or other home services: No Alcohol intake: never Patient Tobacco Use Status: Never used Tobacco e-Cigarette/Vaping Use: Never Used Second Hand Smoke Exposure: No Advance Directives: No service: No Sexual orientation: Straight/Heterosexual Physical Exam Vital Signs: Vital Signs: Last Vital Signs Temp 97.3 F 11/06/23 12:22 Pulse 88 11/06/23 12:22 Resp 18 11/06/23 12:22 BP 151/81 H 11/06/23 12:22 Pulse Ox 99 11/06/23 12:22 O2 Del Method Room Air 11/06/23 12:22 BMI result Body Mass Index 32.8 Course Course Course Narrative: Patient complains of head injury when she was hiking she slipped and fell on the ice hitting her head, she is nauseous mildly dizzy and has headache Also complains of some neck pain CTs ordered This rapid medical exam done in triage pending full evaluation and disposition by ER provider Medical Decision Making Medical Decision Making MDM Narrative: Please see the other note for more detail MDM Discharge Plan Discharge Clinical Impression: Subarachnoid hemorrhage Patient Disposition: Xfer Acute Care Hospital Transfer Details: To [facility] Prescriptions: No Action quetiapine 25 mg tablet 25 mg PO DIRECTED Qty: 90 2RF Rx Instructions: 1 TAB 2 X DAY MAY ALSO TAKE AN EXTRA 2 TABS DAILY NEEDED aripiprazole [Abilify] 5 mg tablet 5 mg PO BEDTIME Qty: 90 1RF paroxetine HCl 40 mg tablet 40 mg PO DAILY 90 Days Qty: 90 1RF Trelegy Ellipta 200-62.5-25 mcg blister with device 1 ea PO DAILY Qty: 60 0RF clomipramine 25 mg capsule 75 mg PO BEDTIME Qty: 90 1RF clonazepam [Klonopin] 0.5 mg tablet 0.5 mg PO BEDTIME PRN (Reason: insomnia) Qty: 30 2RF quetiapine 100 mg tablet 300 mg PO BEDTIME 90 Days Qty: 270 1RF omeprazole magnesium [Prilosec OTC] 20 mg Tablet,Delayed Release (Dr/Ec) 20 mg PO DAILY albuterol sulfate 90 mcg/actuation HFA aerosol inhaler 2 inh inhalation Q6H PRN (Reason: shortness of breath or wheezing) 30 Days Qty: 18 12RF albuterol sulfate 2.5 mg /3 mL (0.083 %) solution for nebulization 2.5 mg inhalation Q6H PRN (Reason: shortness of breath or wheezing) 30 Days Qty: 90 11RF clonazepam [Klonopin] 1 mg tablet 0.5 mg PO DIRECTED Rx Instructions: 1/2 tab in the am 1 tab bedtime lorazepam 1 mg tablet 1 mg PO BID PRN (Reason: Anxiety) Qty: 30 0RF
--- NOTE | 2023-11-06 14:40 | ED.FALL ---
HPI - Fall General Chief Complaint: Fall Stated Complaint: Head Pain S/P Fall 11/06/23 Time Seen by Provider: 11/06/23 14:19 History of Present Illness HPI Narrative: Patient is 67-year-old female status post slipped on an icy surface. Hit the back of her head. There is positive nausea. There is positive headache. There was no loss of consciousness. No focal weakness. No vomiting. Patient from home. Ambulated to the emergency department for evaluation. Denies any chest pain shortness of breath. Denies any dizziness prior. No history of cardiac issues. Related Data Home Medications Medication Instructions Recorded Confirmed omeprazole magnesium 20 mg 20 mg PO DAILY 03/24/21 09/24/23 tablet,delayed release (Prilosec OTC) clonazepam 1 mg tablet (Klonopin) 0.5 mg PO DIRECTED 07/31/23 09/24/23 Previous Rx's Medication Instructions Recorded albuterol sulfate 90 mcg/actuation 2 inh inhalation Q6H PRN shortness 10/02/22 aerosol inhaler of breath or wheezing 30 days #18 grams quetiapine 25 mg tablet 25 mg PO DIRECTED #90 tabs 03/06/23 lorazepam 1 mg tablet 1 mg PO BID PRN Anxiety #30 tabs 03/28/23 albuterol sulfate 2.5 mg/3 mL 2.5 mg (3 mL) inhalation Q6H PRN 05/01/23 (0.083 %) solution for nebulization shortness of breath or wheezing 30 days #90 mL aripiprazole 5 mg tablet (Abilify) 5 mg PO BEDTIME #90 tabs 07/25/23 paroxetine HCl 40 mg tablet 40 mg PO DAILY 90 days #90 tabs 08/30/23 fluticasone fur. 200 mcg-umeclid 1 ea PO DAILY #60 ea 09/18/23 62.5 mcg-vilant 25 mcg inhalat.powder (Trelegy Ellipta) clomipramine 25 mg capsule 75 mg (3 x 25 mg) PO BEDTIME #90 10/09/23 caps clonazepam 0.5 mg tablet (Klonopin) 0.5 mg PO BEDTIME PRN insomnia #30 10/16/23 tabs quetiapine 100 mg tablet 300 mg (3 x 100 mg) PO BEDTIME 90 10/30/23 days #270 tabs Allergies Allergy/AdvReac Type Severity Reaction Status Date / Time shellfish derived Allergy Severe DIFFICULTY Verified 11/06/23 12:22 [SHELLFISH DERIVED] BREATHING pseudoephedrine Allergy Intermediate AGITATION Verified 11/06/23 12:22 [From SUDAFED] pregabalin [From Lyrica] Allergy Dizziness Verified 11/06/23 12:22 Review of Systems Review of Systems: Positive head injury Yes all other systems are reviewed and are negative PMFSH Past Medical History Attestation statement: The following information was validated with the patient. Medical History Pneumonitis Dyspnea Flu Osteopenia History of hyperglycemia Fatty liver Hepatitis Small airways disease Chronic restrictive lung disease COVID-19 History of shingles History of COVID-19 Stress incontinence GERD (gastroesophageal reflux disease) IBS (irritable bowel syndrome) Surgical History History of adenoidectomy Hx of tonsillectomy History of appendectomy History of cholecystectomy Social History Social History Household Members: Spouse and Other Household Members Other:: A son Housing: House Do you presently have visiting nurse or other home services: No Alcohol intake: never Patient Tobacco Use Status: Never used Tobacco e-Cigarette/Vaping Use: Never Used Second Hand Smoke Exposure: No Advance Directives: No service: No Sexual orientation: Straight/Heterosexual Physical Exam Vital Signs: Vital Signs: Last Vital Signs Temp 97.3 F 11/06/23 12:22 Pulse 88 11/06/23 12:22 Resp 18 11/06/23 12:22 BP 151/81 H 11/06/23 12:22 Pulse Ox 99 11/06/23 12:22 O2 Del Method Room Air 11/06/23 12:22 BMI result Body Mass Index 32.8 Appearance: Alert. Oriented X3. No acute distress. Eyes: Pupils equal, round and reactive to light. ENT: Pharynx normal. Neck: Normal inspection. Neck supple. No lymph nodes noted. No crepitus CVS: Normal heart rate and rhythm. Pulses normal. Normal S1 and S2 Respiratory: No respiratory distress. Breath sounds normal. No Wheezing. No rales Abdomen: Soft and nontender. No rigidity. No distention. good BS x4 Skin: Skin warm and dry. Normal skin color. Normal skin turgor. Extremities: No lower extremity edema. Neurovascular intact to all extremities. No Lacerations. No Rash Neuro: Oriented X 3. No motor deficit. No sensory deficit. Moving all extermities. No slurred speech Medical Decision Making Medical Decision Making MDM Narrative: Status post accidental fall. Patient hit the back of her head. There is a very small subarachnoid hemorrhage noted on the CT scan patient neurologically intact. Not on blood thinners. Case discussed with [facility] Trauma surgeon. [place] comfortable with transfer patient to the ED at [facility]. Currently in stable condition. Differential Diagnosis Differential Diagnoses: The differential diagnosis associated with the presentation includes Admission/Observation Consideration of admission/observation: Escalation of care including admission/observation considered Positive subarachnoid hemorrhage will require monitoring. Consult Healthcare Provider Management of the patient was discussed with: Cutter Operator Helper ([facility] trauma team) Independent Interpretation I performed an independent interpretation of an: CT Scan Radiology Impression Discussion of test interpretation with radiology: I have reviewed the radiologist's reading. External Record Review Not on blood thinners Chronic Conditions History of depression anxiety Critical Care Time Critical Care Time Critical Care Time: Yes Total Critical Care Time: 20 Attestation: I have personally provided 20 minutes of critical care time exclusive of time spent on separately billable procedures. ?Time includes review of lab data, radiology results, discussion with consultants, and monitoring for potential decompensation. ?Interventions were performed as documented above Discharge Plan Discharge Clinical Impression: Subarachnoid hemorrhage Patient Disposition: [facility] Transfer Details: To [facility] Prescriptions: No Action quetiapine 25 mg tablet 25 mg PO DIRECTED Qty: 90 2RF Rx Instructions: 1 TAB 2 X DAY MAY ALSO TAKE AN EXTRA 2 TABS DAILY NEEDED aripiprazole [Abilify] 5 mg tablet 5 mg PO BEDTIME Qty: 90 1RF paroxetine HCl 40 mg tablet 40 mg PO DAILY 90 Days Qty: 90 1RF Trelegy Ellipta 200-62.5-25 mcg blister with device 1 ea PO DAILY Qty: 60 0RF clomipramine 25 mg capsule 75 mg PO BEDTIME Qty: 90 1RF clonazepam [Klonopin] 0.5 mg tablet 0.5 mg PO BEDTIME PRN (Reason: insomnia) Qty: 30 2RF quetiapine 100 mg tablet 300 mg PO BEDTIME 90 Days Qty: 270 1RF omeprazole magnesium [Prilosec OTC] 20 mg Tablet,Delayed Release (Dr/Ec) 20 mg PO DAILY albuterol sulfate 90 mcg/actuation HFA aerosol inhaler 2 inh inhalation Q6H PRN (Reason: shortness of breath or wheezing) 30 Days Qty: 18 12RF albuterol sulfate 2.5 mg /3 mL (0.083 %) solution for nebulization 2.5 mg inhalation Q6H PRN (Reason: shortness of breath or wheezing) 30 Days Qty: 90 11RF clonazepam [Klonopin] 1 mg tablet 0.5 mg PO DIRECTED Rx Instructions: 1/2 tab in the am 1 tab bedtime lorazepam 1 mg tablet 1 mg PO BID PRN (Reason: Anxiety) Qty: 30 0RF
[2023-11-06 15:38] VITALS: BP 124/60; PULSE 86; RESP 16; TEMP 36.6; O2SAT 99
--- NOTE | 2023-11-06 15:51 | PC.NURSE ---
22G IV placed to RAC. pt a&o x4, pleasant, calm, and cooperative. ambulates independently to bathroom. pt slightly shaky, sts its nerves and my medication . neuros grossly intact. pt being transferred to [facility] ED. getting settled with EMS krishna.
[2023-11-06 16:00] VITALS: BP 138/47; PULSE 59; RESP 16; TEMP 36.4; O2SAT 97
--- NOTE | 2023-11-06 16:04 | PC.NURSE ---
t/w attempted 3x to give nurse to nurse report/expect with no success. pt en route to [facility] ED.
== END 2023-11-06 16:07 | disposition short-term general hospital (02) ==
PROVIDERS: Emergency Provider Emergency Medicine Emergency Medical Services; PCP Nurse Practitioner Family
DX: S06.6X0A Traumatic subarachnoid hemorrhage without loss of consciousness, initial encounter (principal); W00.0XXA Fall on same level due to ice and snow, initial encounter; Y93.9 Activity, unspecified; Y92.410 Unspecified street and highway as the place of occurrence of the external cause; Y99.9 Unspecified external cause status; Z79.899 Other long term (current) drug therapy
CPT/HCPCS: 70450; 72125; 99285

== ENCOUNTER 2023-11-21 12:04 | Outpatient (AMB) | payer MEDICARE, SELFPAY ==
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
== END 2023-11-21 15:40 | disposition home or self-care (01) ==
LOC: HO.HOP 12:05
PROVIDERS: PCP Nurse Practitioner Family; Visit Provider Psychiatry & Neurology Psychiatry
DX: F43.10 Post-traumatic stress disorder, unspecified (principal); F33.42 Major depressive disorder, recurrent, in full remission
CPT/HCPCS: 90833; 99213

== ENCOUNTER → 2023-11-21 12:04 | Outpatient (BNVA) | payer MEDICARE, SELFPAY | PROVIDERS: PCP Nurse Practitioner Family; Visit Provider Psychiatry & Neurology Psychiatry | DX: F43.10 Post-traumatic stress disorder, unspecified (principal); F33.42 Major depressive disorder, recurrent, in full remission | CPT/HCPCS: 99212 ==

== ENCOUNTER 2024-01-23 12:09 | Outpatient (AMB) | payer MEDICARE, SELFPAY ==
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
== END 2024-01-23 12:35 | disposition home or self-care (01) ==
LOC: HO.HOP 12:09
PROVIDERS: PCP Nurse Practitioner Family; Visit Provider Psychiatry & Neurology Psychiatry
DX: F33.42 Major depressive disorder, recurrent, in full remission (principal); F42.9 Obsessive-compulsive disorder, unspecified; F43.10 Post-traumatic stress disorder, unspecified; J98.4 Other disorders of lung
CPT/HCPCS: 90833; 99213

== ENCOUNTER → 2024-01-23 12:09 | Outpatient (BNVA) | payer MEDICARE, SELFPAY | PROVIDERS: PCP Nurse Practitioner Family; Visit Provider Psychiatry & Neurology Psychiatry | DX: F33.42 Major depressive disorder, recurrent, in full remission (principal); F42.9 Obsessive-compulsive disorder, unspecified; F43.10 Post-traumatic stress disorder, unspecified; J98.4 Other disorders of lung | CPT/HCPCS: 99212 ==

== ENCOUNTER 2024-03-04 14:33 | Outpatient (REF) | payer MEDICARE, SELFPAY ==
--- NOTE | ~2024-03-04 | CT_ITS ---
EXAMINATION: CT CHEST WITHOUT CONTRAST CLINICAL INFORMATION: 68-year-old female, Follow-up pneumonitis, groundglass opacities. COMPARISON: CT chest examination 06/26/2023. TECHNIQUE: Multidetector volumetric CT imaging of the chest was done. Axial MIP volume rendering provided. Sagittal and coronal reformatted images were obtained. This CT examination was performed using dose optimization techniques as appropriate, variously including the following: *Automated exposure control *Adjustment of mA and/or kV according to patient size (this includes techniques or standardized protocols for targeted exams where dose is matched to indication/reason for exam; i.e. extremities or head) *Use of iterative reconstruction technique DLP: 167 mGy-cm Please note, due to [employer] technical systems and internal issues, this examination was not available for dictation until 04/08/2024. 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 LUNGS: -No gross consolidations. There are persistent bilateral patchy groundglass opacities in both lungs with lower lobe predominance, and relative sparing of the upper lobes. These appear different in configuration than on the prior examination, but persistent. They are somewhat geographic. Findings are nonspecific, and infectious/inflammatory etiology is favored. -Mild biapical scarring is present, unchanged. -No bronchiectasis is evident, bronchial wall thickening, or endobronchial filling defect. -No suspicious pulmonary nodules are evident. -No interstitial lung disease is evident. PLEURA: There is no pleural effusion. No pleural mass or thickening. MEDIASTINUM: -There are calcified mediastinal and bilateral hilar lymph nodes which are nonenlarged. Findings represent sequela of prior granulomatous disease. - Heart size is normal. No significant pericardial effusion. -Main pulmonary artery is normal in size. 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 -Aorta is nonaneurysmal and normal and course with trace calcification. Great vessels are normal in caliber. -Small type I hiatus hernia present. Esophagus otherwise normal. -Thyroid is slightly small without dominant nodule. CORONARY ARTERY CALCIFICATION: None visualized on this study. AXILLA/CHEST WALL: No lymphadenopathy. Previously seen 5 mm right breast nodule is unchanged, however there are numerous nodular type opacities in both breasts. These are most likely benign entities although correlation with mammography is recommended. UPPER ABDOMEN: Prior cholecystectomy. OSSEOUS STRUCTURES: Mild degenerative changes of the imaged spine. No suspicious lytic or blastic bone lesion. Mild degenerative changes left shoulder joint. CT/CT chest wo IV con IMPRESSION: 1. Bilateral patchy groundglass opacities which have changed configuration but remain present with lower lobe predominance. Suspect inflammatory/infectious etiology. 2. Sequela of prior granulomatous disease. 3. No suspicious pulmonary nodules or additional pulmonary abnormalities. 4. Small type I hiatus hernia. Correlate with recent barium swallow 03/17/2024. Aspiration pneumonitis is a consideration. 5. Additional ancillary findings as detailed in the body of the report. Fleischner guidelines were followed.
[2024-03-04 14:46] LABS: MANUAL DIFF FLAG NO
[2024-03-04 15:57] LABS: Basophils Absolute Auto 0.1 X10*3/uL (0.0-0.2); Basophils Percent Auto 0.8 % (0-2); Eosinophils Absolute Auto 0.7 X10*3/uL (0.0-0.4); Eosinophils Percent Auto 9.4 % (0-4); Hematocrit 41.4 % (37.0-47.0); Hemoglobin 13.4 g/dl (12.0-16.0); Imm Gran Abs Auto 0.03 X10*3/uL (0.00-0.03); Imm Gran Pct Auto 0.4 % (0.0-0.4); Lymphocytes Absolute Auto 1.9 X10*3/uL (1.2-4.9); Lymphocytes Percent Auto 25.3 % (20-40); Mean Corpuscular HGB Conc 32.4 g/dl (31.0-35.0); Mean Corpuscular Hemoglobin 30.2 pg (27.0-33.0); Mean Corpuscular Volume 93.5 fL (80.0-98.0); Mean Platelet Volume 12.1 fL (9.4-12.3); Monocytes Absolute Auto 0.5 X10*3/uL (0.1-1.2); Monocytes Percent Auto 6.9 % (2-11); Neutrophils Absolute Auto 4.4 x10*3/uL (2.0-8.3); Neutrophils Percent Auto 57.2 % (45-73); Platelet Count 256 X10*3/uL (160-400); Red Blood Count 4.43 X10*6/uL (4.20-5.50); Red Cell Distribution Width 13.9 % (11.0-16.0); White Blood Count 7.6 X10*3/uL (4.8-10.8)
[2024-03-04 16:49] LABS: Erythrocyte Sedimentation Rate 11 MM/HR (0-20)
[2024-03-06 20:38] LABS: Antibody to SS-A Antigen <1.0 NEG AI (<1.0 NEG); Antibody to SS-B Antigen <1.0 NEG AI (<1.0 NEG)
[2024-03-08 14:53] LABS: Anti Nuclear Antibody Screen NEGATIVE (NEGATIVE)
[2024-03-19 15:24] LABS: Asperg fumigatus Precip Abs NEGATIVE (NEGATIVE); Micropoly faeni Abs NEGATIVE (NEGATIVE); Pigeon serum Abs NEGATIVE (NEGATIVE); Saccharo pora viridis Abs NEGATIVE (NEGATIVE); Thermo candidus Abs NEGATIVE (NEGATIVE); Thermoa vulgaris #1 NEGATIVE (NEGATIVE)
== END 2024-03-04 14:34 | disposition home or self-care (01) ==
LOC: HO.CT 14:33
PROVIDERS: PCP Nurse Practitioner Family; Visit Provider Hospitalist
DX: J98.4 Other disorders of lung (principal); R91.8 Other nonspecific abnormal finding of lung field
CPT/HCPCS: 36415; 71250; 85025; 85652; 86038; 86235; 86331; 86606; 86609

== ENCOUNTER → 2024-03-04 14:47 | Outpatient (BNV) | payer MEDICARE, SELFPAY | PROVIDERS: PCP Nurse Practitioner Family; Visit Provider Radiology Diagnostic Radiology | DX: J98.4 Other disorders of lung (principal); R91.8 Other nonspecific abnormal finding of lung field | CPT/HCPCS: 71250 ==

== ENCOUNTER 2024-03-05 11:32 | Outpatient (AMB) | payer MEDICARE, SELFPAY ==
--- OUTSIDE RECORDS SUMMARY | 2024-03-05 11:34 | XMS_ITS | Continuity of Care Document ---
Author Organization [facility] [place] Anand lt Address [address] [place] [address]- Care Team Providers Care Manager English Name Role Phone Sameer RODGERS, July Guzman Primary Care Physician [place] [facility] [place] 05/14[place]23 - 06/13/23 [facility] [place] Adult [address] [place] [address]- Allergies, Adverse Reactions, Alerts Substance Reaction Severity Status shellfish Active Sudafed Hyperactivity Active Lyrica vomiting Active Immunizations Given and Recorded Vaccine Date Status Refusal Reason SARS-CoV-2 (COVID-19) mRNA-1273 vaccine 09/20/21 R ecorded SARS-CoV-2 (COVID-19) mRNA-1273 vaccine 11/11/20 R ecorded SARS-CoV-2 (COVID-19) mRNA-1273 vaccine 10/14/20 R ecorded Influenza Virus Vaccine (oldterm) 07/05/21 Recorde d Influenza Virus Vaccine (oldterm) 06/23/19 Recorde d Influenza Virus Vaccine (oldterm) 1 09/21/09 Given Influenza Virus Vaccine (oldterm) 07/24/07 Given influenza virus vaccine, inactivated 07/03/20 Dev rded influenza virus vaccine, inactivated 2 07/30/18 Re corded influenza virus vaccine, inactivated 3 06/24/17 Re corded influenza virus vaccine, inactivated 4 07/13/16 Re corded influenza virus vaccine, inactivated 07/19/15 Give n influenza virus vaccine, inactivated 5 07/13/14 Re corded influenza virus vaccine, inactivated 6 06/23/13 Gi lucie influenza virus vaccine, inactivated 7 07/28/11 Gi lucie tetanus/diphtheria/pertussis, acel(Tdap) 03/16/13 Given Tetanus Toxoid Vaccine (oldterm) 09/23/03 Given 1Admin Note: declined 2Result Comment: [10/08/2018] kimberly 3Result Comment: [07/22/2017] kimberly 4Result Comment: [09/12/2016] got at work 5Location History: [facility] 6Admin Note: [facility] 7Admin Note: work Medications Abilify 5 mg oral tablet 5 mg, 1, tablet, By Mouth, Daily, Refills 0, Maintenance, 08/20/22 7:52:00 EST, Partial fill upon patient request if the prescription is for a schedule II opioid drug. Start Date: 08/20/22 Status: Ordered Anafranil 50 mg oral capsule 1 capsule = 50 mg, By Mouth, Daily at bedtime, 0 Refills, Maintenance, 04/13/20 15:09:00 EDT Start Date: 04/13/20 Status: Ordered Ativan 0.5 mg oral tablet 1 tablet = 0.5 mg, By Mouth, 0 Refills, Maintenance, 10/25/20 9:04:00 EST, Partial fill upon patient request if the prescription is for a schedule II opioid drug. Start Date: 10/25/20 Status: Ordered clonazePAM 1 mg oral tablet See Instructions, 1/2 tabs in am and 1 tab in evening, 0 Refills, Maintenance, 12/19/19 3:52:00 EDT, Tablet Start Date: 12/19/19 Status: Ordered PARoxetine 40 mg oral tablet 40 mg, 1, tablet, By Mouth, Daily, # 30 tablet, Refills 0, Maintenance, 10/25/20 11:30:00 EST, Partial fill upon patient request if the prescription is for a schedule II opioid drug. Start Date: 10/25/20 Status: Ordered PriLOSEC OTC 20 mg oral delayed release tablet 1 tablet = 20 mg, By Mouth, Daily, 0 Refills, Maintenance, 10/25/20 9:04:00 EST, Partial fill upon patient request if the prescription is for a schedule II opioid drug. Start Date: 10/25/20 Status: Ordered propranolol 10 mg oral tablet 10 mg, 1, tablet, By Mouth, Daily, Refills 0, Maintenance, 02/27/21 17:32:00 EDT, Partial fill uponpatient request if the prescription is for a schedule II opioid drug. Start Date: 02/27/21 Status: Ordered QUEtiapine 200 mg oral tablet 200 mg, 1, tablet, By Mouth, Daily, # 180 tablet, Refills 0, Maintenance, 12/19/19 3:51:00 EDT Start Date: 12/19/19 Status: Ordered SEROquel 25 mg oral tablet 25 mg, 1, tablet, By Mouth, 2 times a day, take at 8 am and 3pm, Refills 0, Maintenance, 01/14/23 13:07:00 EDT, Partial fill upon patient request if the prescription is for a schedule II opioid drug. Start Date: 01/14/23 Status: Ordered Problem List Condition Confirmation Course Effective Dates Status H ealth Status Informant Anxiety Confirmed Active Female stress incontinence 1 Confirmed Active Gallstones 2 Confirmed Active GERD (gastroesophageal reflux disease) Confirmed Active History of cholecystectomy,lapa roscopic Confirmed 03/19/16 Active History of 2019 novel coronavirus disease (COVID-19) Confirmed 12/01/19 Active Hyperglycemia Confirmed Active IBS (irritable bowel syndrome) Confirmed Active Elevated LFTs Confirmed Active Mood disorder Confirmed Active Obesity Confirmed Active Osteopenia 3, 4 Confirmed Active Reactive airway disease Confirmed Active Depression, major, recurrent Confirmed Active Seasonal allergies Confirmed Active Severe obesity (BMI 35.0-39.9) with comorbidity Confirmed Active Fatty liver 5 Confirmed Active 1abnormal muscle;seees Dr Presley 2sono january 2016 3corecting VIT D 4neg 1.1 fem neck 5dr vahe,gastro addressing;per sonogram january 2016 Social History Social History Type Response Smoking Status Never smoker; Tobacc o user in household: Yes; Other: Mother smoked; entered on: 07/19/15 Sex Patient Care team information Care Team Personnel Name: Keith Patrick RN Position: [facility] RN Member Role: Primary Care Nurse Name: Shyann Salinas RN Position: [facility] RN Member Role: Primary Care Nurse Name: Tarik Davis RN Position: [facility] ED RN W/OE and Tasks Member Role: Primary Care Nurse Name: Rito Son RN Position: [facility] RN Member Role: Primary Care Nurse Name: Bridget Salas RN Position: [facility] RN Member Role: Primary Care Nurse Name: July Estrella NP Position: [facility] PCO Associate Professional Member Role: PCP Address: Address: [address] [place] [address] [place] [address]- [place] Name: Marah Oscar RN Position: [facility] AMB Nurse Member Role: Primary Care Nurse Name: Krupa Ventura RN Position: [facility] RN Member Role: Primary Care Nurse Name: Jaclyn Terrazas RN Position: [facility] ED RN W/OE and Tasks Member Role: Primary Care Nurse Name: Bella Hall RN Position: [facility] RN Member Role: Primary Care Nurse Care Team Related Persons Name: PRAVEEN FRANCOIS Address: home [address] [place] [address]
--- OUTSIDE RECORDS SUMMARY | 2024-03-05 11:34 | XMS_ITS | Continuity of Care Document ---
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 Name Role Phone Mirlande RODGERS, Tena Mercado Primary Care Physician Encounter [facility] Date(s): 01/26/20 - 02/02/20 [facility] Dilan Ricks Adult [address] [place] [address]- [facility] Encounter Diagnosis COVID-19(Discharge Diagnosis) - 01/26/20 Seasonal allergies(Discharge Diagnosis) - 01/26/20 Hot flashes(Discharge Diagnosis) - 01/26/20 Attending Physician: Tena Nogueira NP Allergies, Adverse Reactions, Alerts Substance Reaction Severity Status shellfish Active Sudafed Hyperactivity Active Immunizations Given and Recorded Vaccine Date Status Refusal Reason Influenza Virus Vaccine (oldterm) 06/23/19 Recorde d Influenza Virus Vaccine (oldterm) 1 09/21/09 Given Influenza Virus Vaccine (oldterm) 07/24/07 Given influenza virus vaccine, inactivated 2 07/30/18 Re [...] Comment: [09/12/2016] got at work 5[facility] 6Admin Note: [facility] 7Admin Note: work Medications Abilify 10 mg oral tablet 10 mg, 1, tablet, By Mouth, Daily, Maintenance, 12/25/19 14:46:00 EDT Start Date: 12/25/19 Status: Ordered buPROPion 150 mg/24 hours (XL) oral tablet, extended release 1 tablet = 150 mg, By Mouth, Every 24 hours, # 90 tablet, 0 Refills, Maintenance, 12/19/19 3:51:00 EDT, ER Tablet Start Date: 12/19/19 Status: Ordered clonazePAM 1 mg oral tablet 1 tablet = 1 mg, By Mouth, Daily, 0 Refills, Maintenance, 12/19/19 3:52:00 EDT, Tablet Start Date: 12/19/19 Status: Ordered loratadine 10 mg oral tablet 10 mg, 1, tablet, By Mouth, Daily, # 90 tablet, Refills 0, Tot. Refills 0, Maintenance, 01/26/20 15:18:00 EDT, Route to Pharmacy Electronically, [facility]/pharmacy #[id number], 165, cm, 01/01/20 8:34:00 EDT, Height, 93.2, kg, 12/18/19 19:28:00 EDT, Dry Weight Start Date: 01/26/20 Stop Date: 04/25/20 Status: Ordered PARoxetine 40 mg oral tablet 60 mg, 1.5, tablet, By Mouth, Daily, # 90 tablet, Refills 0, Maintenance, 12/19/19 3:51:00 EDT Start Date: 12/19/19 Status: Ordered QUEtiapine 200 mg oral tablet 200 mg, 1, tablet, By Mouth, Daily, # 180 tablet, Refills 0, Maintenance, 12/19/19 3:51:00 EDT Start Date: 12/19/19 Status: Ordered Problem List Condition Effective Dates Status Health Status Inform ant Acute sinusitis(Confirmed) Active Adult BMI 27.0-27.9 kg/sq m(Confirmed) Active COVID-19(Confirmed) Active Female stress incontinence(C onfirmed) 1 Active Hot flashes(Confirmed) Active Gallstones(Confirmed) 2 Active Gastro - esophageal reflux(Confirmed) Active GERD (gastroesophageal reflu x disease)(Confirmed) Active H/O herpes zoster(Confirmed) 3 Active History of cholecystectomy,laparoscopic(Confirmed ) 03/19/16 Active Hyperglycemia(Confirmed) Active IBS (irritable bowel syndrome)(Confirmed) Active Fecal incontinence(Confirmed) 4 Active Mood disorder(Confirmed) Active Obesity(Confirmed) Active Osteopenia(Confirmed) 5, 6 Active Depression, major, recurrent(Confirmed) Active Seasonal allergies(Confirmed) Active Fatty liver(Confirmed) 7 Active 1abnormal muscle;seees Dr Presley 2sono january 2016 3right T 5 dermatome 4Drs Vahe.Gm addressing 5corecting VIT D 6neg 1.1 fem neck 7dr vahe,gastro addressing;per sonogram january 2016 Diagnosis Diagnosis Type Effective Dates Health Status Cl inical Service Informant COVID-19 Discharge Diagnosis 01/26/20 Seasonal allergies Discharge Diagnosis 01/26/20 Hot flashes Discharge Diagnosis 01/26/20 Social History Social History Type Response Smoking Status Never smoker; Tobacc o user in household: Yes; Other: Mother smoked; entered on: 07/19/15 Sex
--- OUTSIDE RECORDS SUMMARY | 2024-03-05 11:34 | XMS_ITS | Continuity of Care Document ---
Author Organization [facility] ter Address [address] [place] [id number]- Care Team Providers Care Landscape Supervisor Name Role Phone Sameer RODGERS, July Guzman Primary Care Physician [phone] Encounter [facility] [place] Date(s): 11/06/23 - 11/06/[address] [address]- Encounter Diagnosis Fall(Final) - 11/06/23 Discharge Disposition: A-D/C Home Attending Physician: Lori Anderson DO Admitting Physician: Lori Anderson DO Referring Physician: Not on Staff, Referring MD Allergies, Adverse Reactions, Alerts Substance Reaction Severity Status shellfish Active Sudafed Hyperactivity Active Lyrica vomiting Active Immunizations Given and Recorded Vaccine Date Status Refusal Reason pneumococcal 20-valent conjugate vaccine 05/01/23 Recorded SARS-CoV-2 (COVID-19) mRNA-1273 vaccine 09/20/21 R ecorded [...] 2Result Comment: [10/08/2018] kimberly 3Result Comment: [07/22/2017] denisevijay 4Result Comment: [09/12/2016] got at work 5Location History: [facility] 6Admin Note: [facility] 7Admin Note: work Medications Abilify 5 mg oral tablet 5 mg, 1, tablet, By Mouth, Daily, Refills 0, Maintenance, 08/20/22 7:52:00 EST, Partial fill upon patient request if the prescription is for a schedule II opioid drug. Start Date: 08/20/22 Status: Ordered albuterol CFC free 90 mcg/inh inhalation aerosol 2, puffs, Inhalation, Every 6 hours, Refills 0, Maintenance, 08/22/23 8:05:00 EST Start Date: 08/22/23 Status: Ordered Anafranil 50 mg oral capsule [...] opioid drug. Start Date: 10/25/20 Status: Ordered SEROquel 25 mg oral tablet 25 mg, 1, tablet, By Mouth, Daily, take at 8 am, Refills 0, Maintenance, 01/14/23 13:07:00 EDT, Partial fill upon patient request if the prescription is for a schedule II opioid drug. Start Date: 01/14/23 Status: Ordered SEROquel 300 mg oral tablet 1 tablet = 300 mg, By Mouth, Daily at bedtime, # 30 tablet, 0 Refills, Maintenance, 08/22/23 8:06:00 EST, Tablet, Partial fill upon patient request if the prescription is for a schedule II opioid drug. Start Date: 08/22/23 Status: Ordered Trelegy Ellipta 200 mcg-62.5 mcg-25 mcg/inh inhalation powder 1 puffs, Inhalation, Daily, 0 Refills, Maintenance, 08/22/23 8:04:00 EST, Partial fill upon patientrequest if the prescription is for a schedule II opioid drug. Start Date: 08/22/23 Status: Ordered Problem List Condition Confirmation Course [...] neck 5dr vahe,gastro addressing;per sonogram january 2016 Results Radiology Reports * Exam Date Time Procedure Performing Provider Status 11/06/23 7:07 PM Chest 2 Views Frontal and Lat Ashok Castillo; Auth (Verified) Notes: (Chest 2 Views Frontal and Lat) Reason For Exam: Traumatic Chest Pain;Other: RESULT: Chest 2 Views Frontal and Lat Chest 2 Views Frontal and Lat INDICATION/CLINICAL QUESTION: Slipped and fell.: TECHNIQUE: Frontal and lateral views of the chest. COMPARISON: 04/06/2022. FINDINGS: LINES AND TUBES: None. LUNGS AND PLEURA: RIGHT CHEST: The right lung is clear and there is no right effusion. LEFT CHEST: The left lung is clear and there is no left effusion. HEART, MEDIASTINUM AND MIGUEL: The heart is of normal size. The mediastinum and miguel are normal. BONES AND SOFT TISSUES: No acute bony abnormality. IMPRESSION: 1. No active disease in chest. WSN: [id number] Ordering Physician: Nav Koroma Dictated By: Sumit Kirkland MD Dictated Date/Time: 11/06/23 7:20 pm Reviewed By: Sumit Kirkland MD Signed By: Sumit Kirkland MD Signed Date/Time: 11/06/23 7:20 pm Transcribed By: LAMONTE Transcribed Date/Time: 11/06/23 7:19 pm Vital Signs Most recent to oldest [Reference Range]: 1 2 Oxygen Saturation [94-100 %] 95 % (11/06/23 8:06 PM) 100 % (11/06/23 4:44 PM) Pulse Rate [55-90 bpm] 90 bpm (11/06/23 8:06 PM) 75 bpm (11/06/23 4:44 PM) Blood Pressure [90-138/55-84 mm Hg] 140/ 72mm Hg *H* (11/06/23 8:06 PM) 137/75mm Hg (11/06/23 4:44 PM) Respiratory Rate [16-30 br/min] 16 br/mi n (11/06/23 8:06 PM) 18 br/min (11/06/23 4:44 PM) Temperature [96.8-100.4 DegF] 99.2 DegF (11/06/23 8:06 PM) 98.4 DegF (11/06/23 4:44 PM) Mode of Delivery (Oxygen) Room air (11/06/23 8:06 PM) Room air (11/06/23 4:44 PM) Blood pressure sites Arm, left (11/06/23 8:06 PM) Arm, left (11/06/23 4:44 PM) Temperature Route Oral (11/06/23 8:06 PM) Oral (11/06/23 4:44 PM) Social History Social History Type Response Smoking Status Never smoker; Tobacc o user in household: Yes; Other: Mother smoked; entered on: 07/19/15 Sex Hospital Progress note * Maco Delgado NP: PERFORM, SIGN, VERIFY Event Display: Progress Note Hospital Authored Date: [id number] Patient: NED FRANCOIS Age: 67 years Sex: Female : 1955 Associated Diagnoses: None Author: Maco Delgado NP History of Present Illness Consult requested by: Dr. Koroma Consulting physician: Dr. Kemp Reason for consultation: Fall HPI This is a 67-year-old female with a past medical history of interstitial lung disease due to COVID,GERD, anxiety who presented as a trauma consult s/p fall. Patient reports that today 11/06 at approximately 11 AM she was walking down the street with a friend when there was an area of black ice and she slipped and fell landing on her buttocks and striking her head on the ground. Denies any loss ofconsciousness. Denies antiplatelet or anticoagulation. Presented to [facility] where CThead revealed a trace subarachnoid hemorrhage in right frontal sulci versus artifact. Patient was transferred here for trauma evaluation of a BIG 1 intracranial bleed. In the ED a chest x-ray was ordered which was negative. Patient neurologically stable and GCS 15. Reports a mild headache and mild nausea but otherwise no complaints. Denies fever, chills, shortness of breath or vomiting. Medical History: History of 2019 novel coronavirus disease (COVID-19) History of cholecystectomy,laparoscopic Anxiety Depression, major, recurrent Elevated LFTs Fatty liver Female stress incontinence GERD (gastroesophageal reflux disease) Gallstones Hyperglycemia IBS (irritable bowel syndrome) Mood disorder Obesity Osteopenia Reactive airway disease Seasonal allergies Severe obesity (BMI 35.0-39.9) with comorbidity Surgical History: Chest X-ray nad: 02/28/21 Laparoscopic cholecystectomy: 03/19/16 Ultrasound, abdominal, real time with image documentation; complete: 01/23/16 Radiologic examination, chest, 2 views, frontal and lateral;: 08/19/13 ct cervical spine: 08/19/13 Magnetic resonance (eg, proton) imaging, brain (including brain stem); with contrast material(s): 09/14/11 Upper gastrointestinal endoscopy including esophagus, stomach, and either the duodenum and/or jejunum as appropriate; diagnostic, with or without collection of specimen(s) by brushing or washing (separate procedure): 06/06/11 bone denisty: 08/19/09 MRI pituiatry: 07/12/09 Ultrasound of kidney: 09/27/08 MRI of lumbar spine: 09/13/08 MRI of brain: 11/21/07 Colonoscopy: 01/03/07 MRI of brain: 12/28/06 Fiberoptic esophagoscopy: 03/12/06 Cardiac Tc-99m MIBI study: 01/23/06 Bone density scan: 07/03/05 EK02/05/05 CXR - Chest X-ray Medications: Albuterol: 2 puffs, Inhalation, Every 6 hours Aripiprazole: 5 mg = 1 tablet, By Mouth, Daily ClomiPRAMINE: 50 mg = 1 capsule, By Mouth, Daily at bedtime Clonazepam: See Instructions, 1/2 tabs in am and 1 tab in evening fluticasone/umeclidinium/vilanterol: 1 puffs, Inhalation, Daily Lorazepam: 0.5 mg = 1 tablet, By Mouth Omeprazole: 20 mg = 1 tablet, By Mouth, Daily Paroxetine: 40 mg = 1 tablet, By Mouth, Daily Quetiapine: 25 mg = 1 tablet, By Mouth, Daily, take at 8 am Quetiapine: 300 mg = 1 tablet, By Mouth, Daily at bedtime Allergies: NKDA Family History: No family history of bleeding disorder Social History: Smoking -denies ETOH -denies Ilicit Drug Use -denies 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 Living Situation -lives with Past Medical History Problem list All Problems Anxiety / SNOMED CT 39448638 / Confirmed Depression, major, recurrent / SNOMED CT 645901606 / Confirmed Elevated LFTs / SNOMED CT 2364286660 / Confirmed Fatty liver / SNOMED CT 680007260 / Confirmed dr cotter,gastro addressing;per sonogram january 2016 Female stress incontinence / ICD-9-CM 625.6 / Confirmed abnormal muscle;seees Dr Presley Gallstones / SNOMED CT 816514136 / Confirmed sono january 2016 GERD (gastroesophageal reflux disease) / SNOMED CT 773610869 / Confirmed History of 2019 novel coronavirus disease (COVID-19) / SNOMED CT 4533900219 / Confirmed History of cholecystectomy,laparoscopic / SNOMED CT 4296892093 / Confirmed Hyperglycemia / SNOMED CT 191628398 / Confirmed IBS (irritable bowel syndrome) / ICD-9-CM 564.1 / Confirmed Mood disorder / SNOMED CT 66514355 / Confirmed Obesity / SNOMED CT 9957913243 / Confirmed Osteopenia / ICD-9-CM 733.90 / Confirmed neg 1.1 fem neck corecting VIT D Reactive airway disease / SNOMED CT 5574429760 / Confirmed Seasonal allergies / SNOMED CT 0813799309 / Confirmed Severe obesity (BMI 35.0-39.9) with comorbidity / IMO 40979827 / Confirmed Allergies Allergic Reactions (Selected) Severity Not Documented Lyrica- Vomiting. Shellfish- No reactions were documented. Nonallergic Reactions (Selected) Severity Not Documented Sudafed- Hyperactivity. Current medications (Selected) Documented Medications Documented Abilify 5 mg oral tablet: 5 mg, 1, tablet, By Mouth, Daily, Refills 0, Maintenance, 08/20/22 7:52:00 EST, Partial fill upon patient request if the prescription is for a schedule II opioid drug. Anafranil 50 mg oral capsule: 1 capsule = 50 mg, By Mouth, Daily at bedtime, 0 Refills, Maintenance, 04/13/20 15:09:00 EDT Ativan 0.5 mg oral tablet: 1 tablet = 0.5 mg, By Mouth, 0 Refills, Maintenance, 10/25/20 9:04:00 EST, Partial fill upon patient request if the prescription is for a schedule II opioid drug. PARoxetine 40 mg oral tablet: 40 mg, 1, tablet, By Mouth, Daily, # 30 tablet, Refills 0, Maintenance, 10/25/20 11:30:00 EST, Partial fill upon patient request if the prescription is for a schedule IIopioid drug. PriLOSEC OTC 20 mg oral delayed release tablet: 1 tablet = 20 mg, By Mouth, Daily, 0 Refills, Maintenance, 10/25/20 9:04:00 EST, Partial fill upon patient request if the prescription is for a schedule II opioid drug. SEROquel 25 mg oral tablet: 25 mg, 1, tablet, By Mouth, Daily, take at 8 am, Refills 0, Maintenance, 01/14/23 13:07:00 EDT, Partial fill upon patient request if the prescription is for a schedule II opioid drug. SEROquel 300 mg oral tablet: 1 tablet = 300 mg, By Mouth, Daily at bedtime, # 30 tablet, 0 Refills,Maintenance, 08/22/23 8:06:00 EST, Tablet, Partial fill upon patient request if the prescription isfor a schedule II opioid drug. Trelegy Ellipta 200 mcg-62.5 mcg-25 mcg/inh inhalation powder: 1 puffs, Inhalation, Daily, 0 Refills, Maintenance, 08/22/23 8:04:00 EST, Partial fill upon patient request if the prescription is for aschedule II opioid drug. albuterol CFC free 90 mcg/inh inhalation aerosol: 2, puffs, Inhalation, Every 6 hours, Refills 0, Maintenance, 08/22/23 8:05:00 EST clonazePAM 1 mg oral tablet: See Instructions, 1/2 tabs in am and 1 tab in evening, 0 Refills, Maintenance, 12/19/19 3:52:00 EDT, Tablet Social History Social History Alcohol Details: Use: Current. Frequency: very rare. 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 Exercise Details: Self assessment: Fair condition. Exercise frequency: Daily. Exercise type: Walking. Home/Environment Details: Living situation: Home/Independent. Lives with: Spouse, son, 34, autism spectrum. Nutrition/Health Details: Diet: Regular. Caffeine intake amount: 2-3 cups coffee daily. Feels highly stressed: Yes. Sexual Details: Sexually involved in last 6 months: Yes. Sexual orientation: Heterosexual. Substance Abuse Details: Use: Never. Tobacco Details: Never smoker, Tobacco user in household: Yes. Other: Mother smoked. Electronic Cigarette/Vaping Details: Electronic Cigarette Use: Never. . Review of Systems Constitutional, Eye, Skin, Head/Neck, ENMT, Respiratory, Cardio, Gastrointestinal, Musculoskeletal,Immunologic, Hematologic, Lymphatic, Neurologic, Psych reviewed and negative except as noted above. Physical Examination Vitals: Temperature 99.2 (20:09) Systolic Blood Pressure 140 (20:09) Diastolic Blood Pressure 72 (20:09) Pulse 90 (20:09) SpO2 95 (20:09) Respiratory Rate 16 (20:09) General: no acute distress, alert, awake Head: normocephalic, atraumatic, no hematomas, no abrasions, no wounds, no deformities, mild tenderness to palpation to the posterior scalp Face: no ecchymosis, no abrasions, no wounds Eyes: pupils are 3mm, equal, round, and reactive; extraocular movement intact Ears: no hemotympanum, no blood in external auditory canal, no abrasions, no escobar's sign Nose: no epistaxis, no deformity Mandible: no deformity, no malocclusion Neck: no hematoma, no ecchymosis, no wounds, trachea midline Chest: symmetric, no deformity, sternum, chest wall, and clavicles are nontender to palpation, no crepitus appreciated Heart: regular rate and rhythm Lungs: clear to auscultation bilaterally Abdomen: soft, nondistended, nontender, no wounds, no ecchymosis, no hematoma Pelvis: stable, nontender Back: no ecchymosis, no abrasions, no hematoma, no wounds Cervical spine: no midline deformities or stepoffs, no tenderness Thoracic spine: no midline deformities or stepoffs, no tenderness Lumbar spine: no midline deformities or stepoffs, no tenderness Extremities: no long bone deformities, no wounds, no abrasions, no ecchymosis, no hematomas, full active range of motion Neurologic: GCS 15; 5/5 strength and sensation to light touch intact in the bilateral upper and lower extremities Vascular: palpable dorsalis pedis and radial pulses bilaterally Vital Signs Vitals : VITALS 11/06/2023 20:06 EST Temperature 99.2 DegF Temperature Route Oral Pulse Rate 90 bpm Respiratory Rate 16 br/min Systolic Blood Pressure 140 mm Hg H Diastolic Blood Pressure 72 mm Hg Blood pressure sites Arm, left Pulse Pressure 68 mm Hg Oxygen Saturation 95 % Mode of Delivery (Oxygen) Room air 11/06/2023 19:00 EST Vented No 11/06/2023 17:00 EST Vented No 11/06/2023 16:45 EST Vented No 1 - 10 pain scale score 2 11/06/2023 16:44 EST Temperature 98.4 DegF Temperature Route Oral Pulse Rate 75 bpm Respiratory Rate 18 br/min Systolic Blood Pressure 137 mm Hg Diastolic Blood Pressure 75 mm Hg Blood pressure sites Arm, left Mean Arterial Pressure 96 mm Hg Pulse Pressure 62 mm Hg Oxygen Saturation 100 % Mode of Delivery (Oxygen) Room air . Weight : Weight lb/oz 08/22/2023 7:47 EST Weight lb/oz 216 lb 11 oz . BMI : Body Mass Index 08/22/2023 7:47 EST Body Mass Index 36.11 kg/m2 >HHI . Results Review .ALLabs 7 day results Labs & Documents Imaging : RADIOLOGY 11/06/2023 19:07 EST Chest 2 Views Frontal and Lat Chest 2 Views Frontal and Lat Chest 2 Views Frontal and Lat Event Date: 11/06/2023 19:07:07 EST Updated: 11/06/2023 19:23 EST XR Chest 2 Views Frontal and Lat This document has an image Reason For Exam Traumatic Chest Pain;Other: RESULT: Chest 2 Views Frontal and Lat Chest 2 Views Frontal and Lat INDICATION/CLINICAL QUESTION: Slipped and fell.: TECHNIQUE: Frontal and lateral views of the chest. COMPARISON: 04/06/2022. FINDINGS: LINES AND TUBES: None. LUNGS AND PLEURA: RIGHT CHEST: The right lung is clear and there is no right effusion. LEFT CHEST: The left lung is clear and there is no left effusion. HEART, MEDIASTINUM AND MIGUEL: The heart is of normal size. The mediastinum and miguel are normal. BONES AND SOFT TISSUES: No acute bony abnormality. IMPRESSION: 1. No active disease in chest. WSN: [id number] Ordering Physician: Nav Koroma Signature Line Dictated By: Sumit Kirkland MD Dictated Date/Time: 11/06/23 7:20 pm Reviewed By: Sumit Kirkland MD Signed By: Sumit Kirkland MD Signed Date/Time: 11/06/23 7:20 pm Transcribed By: LAMONTE Transcribed Date/Time: 11/06/23 7:19 pm Chest 2 Views Frontal and Lat Impression and Plan Impression: This is a 67-year-old female with a past medical history of interstitial lung disease due to COVID, GERD, anxiety who presented as a trauma consult s/p fall. This fall occurred at approximately 11 AM and patient presented at approximately 1643. Patient GCS 15 with no neurodeficits. According to the brain injury guideline a trace subarachnoid hemorrhage does not require neurosurgical consultation or repeat head CT patient will be observed until 1999. At that time the trauma surgery team will perform a neurological evaluation if this is stable patient is cleared for discharge from atrauma perspective. May follow-up with PCP or trauma concussion clinic. Discussed with Dr. Kemp Pager [phone] Note * Nav Koroma DO: PERFORM Event Display: Patient Education Leaflets Authored Date: [id number] Headache, Unspecified ?? [id number] Headache, Unspecified A number of things can cause headaches. The cause of your headache isn???t clear. But it doesn???t seem to be a sign of any serious illness. Headache affects almost everyone at some time. It's the most common reason people miss days from work or school. A physical and nervous system exam can help rule out any serious causes of headache. Sometimes you may need more testing. This could include blood work or imaging tests of the head, such as a CAT scan or MRI. You could have a tension headache or a migraine headache. Stress can cause a tension headache. This can happen if you tense the muscles of your shoulders, neck, and scalp without knowing it. If this stress lasts long enough, you may develop a tension headache. It's not clear why migraines occur, but certain things called triggers can raise the risk of havinga migraine attack. Migraine triggers may include emotional stress or depression, or by hormone changes during the menstrual cycle. Other triggers include control pills and other medicines, alcohol or caffeine, foods with tyramine, such as aged cheese or wine, eyestrain, weather changes, missed meals, and lack of sleep or oversleeping. Other causes of headache include: ??? Viral illness with high fever ??? Head injury with concussion ??? Sinus, ear, or throat infection ??? Dental pain and jaw joint (TMJ) pain More serious but less common causes of headache include stroke, brain hemorrhage, brain tumor, meningitis, and encephalitis. Home care Follow these tips when taking care of yourself at home: ??? Don???t drive yourself home if you weregiven pain medicine for your headache. Instead, have someone else drive you home. Try to sleep whenyou get home. You should feel much better when you wake up. ??? Apply heat to the back of your neckto ease a neck muscle spasm. Take care of a migraine headache by putting an ice pack on your forehead or at the base of your skull. ??? If you have nausea or vomiting, eat a light diet until your headache eases. ??? If you have a migraine headache, use sunglasses when in the daylight or around bright indoor lighting until your symptoms get better. Bright glaring light can make this type of headache worse. ?? Follow-up care Follow up with your healthcare provider, or as advised. Talk with your provider if you have frequent headaches. They can help figure out a treatment plan. By knowing the earliest signs of headache, and starting treatment right away, you may be able to stop the pain yourself. ?? When to get medical advice Call your healthcare provider right away??if any of the following occur: ??? Your head pain suddenly gets worse after sexual intercourse or strenuous activity ??? Your head pain doesn???t get better within 24 hours ??? You have new symptoms ??? You aren???t able to keep liquids down (repeated vomiting) ??? Fever of 100.4??F (38??C) or higher, or as directed by your healthcare provider ??? Stiff neck ??? Extreme drowsiness, confusion, or fainting ??? Dizziness or dizziness with spinning sensation (vertigo) ??? Weakness in an arm or leg or one side of your face ??? You have trouble talking or seeing ?? Last Reviewed Date: 2022 ?? 9583-2738 [employer]. All rights reserved. This information is not intended as a substitute for professional medical care. Always follow your healthcare professional's instructions. ?? * Nav Koroma DO: PERFORM Event Display: Patient Education Leaflets Authored Date: [id number] Fall??Prevention ?? [id number] Fall??Prevention Falls often take place due to slipping, tripping, or losing your balance. Millions of people fall every year and injure themselves.??Among older adults in the [place] falls are the most common cause oftraumatic brain injuries. Every 20 minutes, an older adult dies from a fall. Here are ways to reduce your risk of falling again: ??? Think about your fall. Was there anything that caused your fall that can be fixed, removed, or replaced? Make your home safe by keeping walkways clear of objects you may trip over, such as electrical cords. ??? Use nonslip pads under rugs. Don't use area rugs orsmall throw rugs. ??? Use nonslip mats in bathtubs and showers. ??? Hang grab rails by the toilet and inside and outside the shower. ??? Install handrails and lights on staircases. The handrails should be on both sides of the stairs. ??? Use night lights. ??? Don't walk in poorly lit areas. ??? Don't stand on chairs or wobbly ladders. ??? Use care when reaching overhead or looking up.??This position can cause a loss of balance. ??? Be sure your shoes fit well, are in good condition, and have non slip bottoms.? Wear shoes both inside and outside of your home. Don't go barefoot or wear slippers. ??? Be cautious when going up and down stairs, curbs, and when walking on uneven sidewalks. ??? If your balance is poor, consider using a cane or walker. Talk with your healthcare provider abouthaving a balance assessment. ??? If your fall was related to alcohol use, stop or limit alcohol intake.??Ask your provider for help if you think you may overuse alcohol and can't stop. ??? If your fall was related to use of sleeping medicines, talk with your provider about this.??You may need to reduce your dosage at bedtime if you wake up during the night to go to the bathroom.? To reducethe need for nighttime bathroom trips: o Don't drink fluids for several hours before going to bed oEmpty your bladder before going to bed o Men can keep a urinal at the bedside ??? Stay as active asyou can. Balance, flexibility, strength, and endurance all come from exercise. They all play a rolein preventing falls. Ask your provider which types of activity are right for you. Try to do some type of exercise every day. ??? Get your eyes checked once a year or more often if your vision changes??? If you have pets, know where they are before you stand up or walk so you don't trip over them. ??? Go over all your medicines with a pharmacist or other provider. This is to see if any of them could make you more likely to fall. Have this type of medicine review at least once every year. ??? Ifyour provider advises a new medicine, ask if the side effects will affect your balance. ??? Don't move quickly from one position to another. For instance, don't stand up fast from sitting. This can cause dizziness and may lead to a fall. ??? Sit down when putting on pants, socks, and shoes. This will make you less likely to lose your balance and fall. ??? Always let your provider know if you havefallen since your last visit. ??? Contact your provider right away if you're having balance problems or falling more often. Last Reviewed Date: 2021 ?? 2836-1341 [employer]. All rights reserved. This information is not intended as a substitute for professional medical care. Always follow your healthcare professional's instructions. ?? * Staci Reyes MD: PERFORM Event Display: Patient Education Leaflets Authored Date: [id number] After a Fall ?? [id number] After a Fall You have had a fall today. That means that you slipped, tripped, or lost your balance. If your fallwas because of fainting or a seizure,??you might need other??tests. It is normal to feel sore and tight in your muscles and back the next day, and not just the musclesyou injured. Remember, all the parts of your body are connected, so while one area hurts now, the next day another may hurt. Also, when you injure yourself, it causes inflammation. This then causes the muscles to tighten up and hurt more. After the initial worsening symptoms, they should slowly improve over the next few days. Tell your healthcare provider if you have more severe pain. Even without a definite head injury, you can still get a concussion from your head suddenly jerkingforward, backward, or sideways when you fall. This is especially true if you have had concussions in the past. Concussions and even bleeding can still happen, especially if you had a recent injury ortake blood thinner medicine. It is not unusual to have a mild headache and feel tired and even nauseous or dizzy.?? Home care ??? Rest today and return to your normal activities when you are feeling back to normal. ??? If you were injured during the fall, follow the advice from your healthcare provider about how to care for your injury. ??? At first, don't try to stretch out the sore spots. If there is a strain,stretching may make it worse. Massage may help relax the muscles without stretching them. ??? Use an ice pack or cold compress on and off at the sore spots for 10 to 20 minutes at a time, as often asyou feel comfortable. This may help reduce the inflammation, swelling, and pain. ??? Know that if you have any scrapes (abrasions), they often heal within??10 days. Keep the scrapes clean while they start to heal. But an infection may happen even with correct care. So watch for early signs of infection (such as warmth, redness, or swelling). ?? Medicines ??? Talk with your healthcare provider before taking new medicines, especially if you have other health problems or are taking other medicines. ??? If you need anything for pain, use acetaminophen or ibuprofen, unless you were given a different pain medicine to use.??Talk with your healthcare provider before using these medicines if you: o Have chronic liver or kidney disease o Ever hada stomach ulcer or??gastrointestinal bleeding o Are taking blood-thinner medicines ??? Be careful if you are given prescription pain medicines, narcotics, or medicine for muscle spasms. They can makeyou sleepy and dizzy. And they can affect your coordination, reflexes, and judgment. Don't drive ordo work where you can hurt yourself when taking them. ?? Fall prevention ??? Fix, remove, or replace anything that caused your fall. ??? Make your home safeby keeping walkways clear of objects you could trip over. ??? Use nonslip pads under rugs. Don't use small??area rugs or throw rugs. ??? Don't walk in poorly lit areas. ??? Don't stand on chairs or wobbly ladders. ??? Be careful when reaching overhead or looking upward. This position can cause a loss of balance. ??? Be sure your shoes fit correctly, have nonslip bottoms, and are in good condition. ??? Be careful when going up and down curbs, and walking on uneven sidewalks. ??? If your balance is poor, think about using a cane or walker. ??? Stay as active as you can. Balance, flexibility, strength, and endurance all come from exercise. They all play a role in preventing falls. ??? If you have pets, know where they are before you stand up or walk so you don't trip over them. ??? Limit alcohol intake. Alcohol can cause balance problems and increase the risk for falls. ??? Use night-lights. ??? Have your eyes tested to be sure you are seeing well, even if you already wear glasses.? Follow-up Follow up with your healthcare provider, or as advised. If X-rays or CT scans were done, you will be told if there is a change in the reading, especially if it affects treatment. ?? Call 911 Call 911 if any of these happen: ??? Trouble breathing ??? Confusion ??? Trouble waking up ??? Fainting or loss of consciousness ??? Fast or very slow heart rate ??? Seizure ??? Trouble with speech or vision, weakness of an arm or leg ??? Trouble walking or talking, loss of balance, numbness or weakness on one side of your body, or facial droop ?? When to get medical advice Call your healthcare provider right away if any of these happen: ??? Repeated falls, including falls that seem to happen for no reason ??? Dizziness ??? Severe headache ??? Blood in vomit or stools (look black or red in color) ?? Last Reviewed Date: 2022 ?? 1749-2117 [employer]. All rights reserved. This information is not intended as a substitute for professional medical care. Always follow your healthcare professional's instructions. ?? Patient Care team information Care Team Personnel Name: Keith Patrick RN Position: [facility] RN Member Role: Primary Care Nurse Name: Tarik Davis RN Position: [facility] RN W/OE and Tasks Member Role: Primary Care Nurse Name: Bridget aSlas RN Position: [facility] RN Member Role: Primary Care Nurse Name: July Estrella NP Position: [facility] PCO Associate Professional Member Role: PCP Address: Address: [address] [place] [address]- Name: Marah Oscar RN Position: [facility] AMB Nurse Member Role: Primary Care Nurse Name: Jaclyn Terrazas RN Position: [facility] ED RN W/OE and Tasks Member Role: Primary Care Nurse Name: Bella Hall RN Position: [facility] RN Member Role: Primary Care Nurse Care Team Related Persons Name: PRAVEEN FRANCOIS Address: [address] [place] [address]
--- OUTSIDE RECORDS SUMMARY | 2024-03-05 11:34 | XMS_ITS | Continuity of Care Document ---
Author Organization [facility] Address [address] [place] [address]- Care Team Providers Care Clock And Watch Hands Mounter Name Role Phone Sameer RODGERS, July Guzman Primary Care Physician [phone] [place] [facility]): [place]23 - 06/14/23 [facility] Adult [address] [place] [address]- Encounter Diagnosis Painless hematuria(Discharge Diagnosis) - 06/07/23 Attending Physician: Sameer RODGERS, July Guzman Referring Physician: Staci Jeter NP Allergies, Adverse Reactions, Alerts Substance Reaction [...] Comment: [09/12/2016] got at work 5Location History: [facility] 6Admin Note: [facility] 7Admin Note: work Medications Abilify [...] neck 5dr vahe,gastro addressing;per sonogram january 2016 Diagnosis Diagnosis Type Effective Dates Health Status Cl inical Service Informant Painless hematuria Discharge Diagnosis 06/07/23 Vital Signs Most recent to oldest [Reference Range]: 1 Height 165 cm (06/07/23 7:47 AM) Weight 99.3 kg (06/07/23 7:47 AM) Oxygen Saturation [94-100 %] 97 % (06/07/23 7:47 AM) Pulse Rate [55-90 bpm] 82 bpm (06/07/23 7:47 AM) Body Mass Index [18.5-24.99 kg/m2] 36.47 kg/m2 *>HHI* (06/07/23 7:47 AM) Blood Pressure [90-138/55-84 mm Hg] 128/ 81mm Hg (06/07/23 7:47 AM) Blood pressure sites Arm, right (06/07/23 7:47 AM) Weight Obtained Via Standing scale (06/07/23 7:47 AM) Social History Social History Type Response Smoking Status Never smoker; Tobacc o user in household: Yes; Other: Mother smoked; entered on: 07/19/15 Sex Note * Ashlye Rojo: PERFORM, SIGN, VERIFY Event Display: Patient Education/Instruction Authored Date: [id number] [facility] *[facility] [place] [facility] Clinical Summary Name NED FRANCOIS Age 67 Years 1955 PCP Sameer RODGERS, July Guzman PCP Visit Date 06/07/2023 07:45:00 Additional Instructions: Scheduled Appointments?? Future Appointments ?*BMP??So[facility] [address]??[facility]??[place],??[address] ?Phone:??--?Fax:??-- ?Appt. Date:??08/22/2023?7:50 AM ?Scheduled Provider:??July Etsrella NP Follow-Up Instructions ?? With: Address: When: July Estrella NP [address] [facility] [place] [address] 06/07/2023 12:00 AM Diagnosis Hematuria, unspecified Medications: Please continue your medications until treatment is completed or stopped by your provider. Discuss any questions related to medications with your provider. Medications to Continue with No Changes These medications were not printed or sent to your pharmacy Aripiprazole (Abilify 5 mg oral tablet) 1 tab(s) Oral Daily. Next Dose: ClomiPRAMINE (Anafranil 50 mg oral capsule) 1 capsule Oral Daily at Bedtime. Next Dose: Clonazepam (clonazePAM 1 mg oral tablet) 1/2 tabs in am and 1 tab in evening. Next Dose: Lorazepam (Ativan 0.5 mg oral tablet) 1 tab(s) Oral. Next Dose: Omeprazole (PriLOSEC OTC 20 mg oral delayed release tablet) 1 tab(s) Oral Daily. Next Dose: Paroxetine (PARoxetine 40 mg oral tablet) 1 tab(s) Oral Daily. Next Dose: Propranolol (propranolol 10 mg oral tablet) 1 tab(s) Oral Daily. Next Dose: Quetiapine (QUEtiapine 200 mg oral tablet) 1 tab(s) Oral Daily. Next Dose: Quetiapine (SEROquel 25 mg oral tablet) 1 tab(s) Oral twice a day. take at 8 am and 3pm. Next Dose: Allergy Info:?? Lyrica; Sudafed; shellfish Medications Given This Visit Future Orders ?No future orders Vital Signs Height 165 cm Weight 99.3 kg BMI 36.47 kg/m2 Blood Pressure 128 mm Hg/81 mm Hg Temperature Pulse Rate 82 bpm Respiratory Rate 02 Sat Mode of Delivery 97 %/ You can now view a summary of your hospital visit from the comfort of your home through a free online portal called [employer]. [employer] is a website that allows you to securely view your medical information including discharge summary, medications and follow-up visits. ??You can alsosend a secure electronic message to your doctor???s office to request appointments, renew medications or just ask a question. You can enroll at [email or web address] or register during your next office visit. Disclaimer:?? The information provided is of a general nature and is intended to be used in conjunction with the recommendations and advice of your health care practitioner. ??Every effort has been made to ensure that the information provided is accurate and complete at the time it is provided to you however, as your needs change, or, as new ??information becomes available, different or additional instructions may be required. If you have questions, please consult with your primary care provider or pharmacist, as appropriate. ??This information is not intended to serve as substitution for assessment and evaluation by a qualified health care provider. If you do not have a primary care provider, you may find a [facility] provider by calling [facility] [employer] at [phone]. [facility], in keeping with [facility] guidance, no longer requires face masks for staff, patientsor visitors in most situations. Similar to time spent indoors at other locations, there is the chance that you were exposed to respiratory viruses during your time with us (such as flu or COVID-19).? If you develop symptoms concerning for a viral respiratory infection, please seek testing (and treatment if indicated) from your medical provider or home test kit. For information about the plan of care including goals and instructions for your diagnosis, please see the patient education orders section of this document. Patient Education Materials?? The content of this educational material or handout may have been modified, supplemented, or adapted from its original content and format to support your individualized medical care. Patient Care team information Care Team Personnel Name: Keith Patrick RN Position: [facility] RN Member Role: Primary Care Nurse Name: Shyann Salinas RN Position: [facility] RN Member Role: Primary Care Nurse Name: Tarik Davis RN Position: [facility] ED RN W/OE and Tasks Member Role: Primary Care Nurse Name: Rito Son RN Position: [facility] RN Member Role: Primary Care Nurse Name: Bridget Salas RN Position: [facility] RN Member Role: Primary Care Nurse Name: July Estrella NP Position: [facility] PCO Associate Professional Member Role: PCP Address: Address: [address] [place] [address]- Name: Marah Oscar RN Position: [facility] AMB Nurse Member Role: Primary Care Nurse Name: Krupa Ventura RN Position: [facility] RN Member Role: Primary Care Nurse Name: Jaclyn Terrazas RN Position: [facility] ED RN W/OE and Tasks Member Role: Primary Care Nurse Name: Bella Hall RN Position: [facility] RN Member Role: Primary Care Nurse Care Team Related Persons Name: PRAVEEN FRANCOIS Address: [address] [address]
--- OUTSIDE RECORDS SUMMARY | 2024-03-05 11:34 | XMS_ITS | Continuity of Care Document ---
Author Organization [facility] Address [address] [place] [address]- Care Team Providers Care Pool Finisher Name Role Phone Mirlande ENVIRONMENT ARTIST, Tena T Primary Care Physician [id number] Date(s): 12/17/19 - 12/18/[address] [address]- [facility] Discharge Disposition: A-D/C Home Attending Physician: Pearl Stephenson DO Admitting Physician: Jennifer Gilbert MD Referring Physician: Pravin Acuna MD Allergies, Adverse Reactions, Alerts Substance Reaction [...] Comment: [09/12/2016] got at work 5Location History: [place] 6Admin Note: [facility] 7Admin Note: work Medications cefTRIAXone 1 g intravenous injection = 1 Gm, IV Infusion, Every 12 hours, # 7 each, 0 Refills, Acute 12/19/19 10:00:00 EDT, 12/18/19 17:20:00 EDT Start Date: 12/18/19 Stop Date: 12/19/19 Status: Ordered Enoxaparin 0.4 mL = 40 mg, Subcutaneous Injection, Daily, 0 Refills, Maintenance, 12/18/19 17:19:00 EDT, Injection Start Date: 12/18/19 Status: Ordered Protonix IV 40 mg intravenous powder for injection = 40 mg, IV Infusion, Daily, # 7 each, 0 Refills, Acute 12/19/19 10:00:00 EDT, 12/18/19 17:21:00 EDT Start Date: 12/18/19 Stop Date: 12/19/19 Status: Ordered Zithromax IV 500 mg intravenous powder for injection = 500 mg, IV Infusion, Every 24 hours, # 7 each, 0 Refills, Acute 12/19/19 10:00:00 EDT, 12/18/19 17:20:00 EDT Start Date: 12/18/19 Stop Date: 12/19/19 Status: Ordered Problem List Condition Effective Dates Status Health Status Inform ant Acute sinusitis(Confirmed) Active Adult BMI 27.0-27.9 kg/sq m(Confirmed) Active Female stress incontinence(C onfirmed) 1 Active Gallstones(Confirmed) 2 Active Gastro - esophageal reflux(Confirmed) Active GERD (gastroesophageal reflu x disease)(Confirmed) Active H/O herpes zoster(Confirmed) 3 Active History of cholecystectomy,laparoscopic(Confirmed ) 03/19/16 Active Hyperglycemia(Confirmed) Active IBS (irritable bowel syndrome)(Confirmed) Active Fecal incontinence(Confirmed) 4 Active Mood disorder(Confirmed) Active Obesity(Confirmed) Active Osteopenia(Confirmed) 5, 6 Active Depression, major, recurrent(Confirmed) Active Fatty liver(Confirmed) 7 Active 1abnormal muscle;seees Dr Presley 2sono january 2016 3right T 5 dermatome 4Drs Vahe.Gm addressing 5corecting VIT D 6neg 1.1 fem neck 7dr vahe,gastro addressing;per sonogram january 2016 Results Orders for Microbiology Reports Name Date Blood Culture 12/17/19 Blood Culture #2 12/17/19 Microbiology Reports TEST:Blood Culture STATUS:Unauthenticated BODY SITE: SOURCE:Blood COLLECTED DATE/TIME:12/17/19 4:30 PM Blood Culture SPECIMEN DESCRIPTION : BLOOD LAC SPECIAL REQUESTS : NONE CULTURE : NO GROWTH AFTER 24 HOURS REPORT STATUS : PRELIMINARY REPORT TEST:Blood Culture, Second Order STATUS:Unauthenticated BODY SITE: SOURCE:Blood COLLECTED DATE/TIME:12/17/19 4:30 PM Blood Culture, Second Order SPECIMEN DESCRIPTION : BLOOD RT HAND SPECIAL REQUESTS : NONE CULTURE : NO GROWTH AFTER 24 HOURS REPORT STATUS : PRELIMINARY REPORT Radiology Reports * Exam Date Time Procedure Performing Provider Status 12/18/19 4:06 PM Chest Portable Kenneth Mercado; Jairo (Verified) Notes: (Chest Portable) Reason For Exam: worsening clinical picture;Shortness of Breath RESULT: Chest Portable Chest Portable AP supine Reason: Shortness of Breath; worsening clinical picture; Clinical Question(s): Follow-Up Abnormal Exam; Hx of Present Illness: pt states inc SOB, cough and fever for 2 days. with travel to [facility] 11-30-19 returned with flu like s s. pt started with s s last Saturday.. started on doxy this saturday by PCP. pt took Tylenol at 1400 COMPARISON: None. FINDINGS: LINES AND TUBES: There is an endotracheal tube with its tip 2.6 cm above the shikha. There is an enteric tube seen coursing into the left abdomen but its distal tip not included in the [id number]. LUNGS AND PLEURA: Again demonstrated are bilateral patchy airspace opacities which appear more prominent compared to the prior exam. No pleural effusion. No pneumothorax. HEART, MEDIASTINUM AND FLOR: Heart is normal in size. Normal mediastinal and hilar contour. BONES AND SOFT TISSUES: No acute abnormality. IMPRESSION: Bilateral patchy airspace opacities which is more prominent compared to the prior exam. WSN: [id number] Ordering Physician: Pearl Stephenson Dictated By: Shagufta Esquivel MD Dictated Date/Time: 12/18/19 4:11 pm Reviewed By: Shagufta Esquivel MD Signed By: Shagufta Esquivel MD Signed Date/Time: 12/18/19 4:11 pm Transcribed By: LAMONTE Transcribed Date/Time: 12/18/19 4:08 pm * Exam Date Time Procedure Performing Provider Status 12/17/19 3:34 PM Chest Portable Neelam Briseno (Verified) Notes: (Chest Portable) Reason For Exam: COPD RESULT: Chest Portable Chest Portable Reason: Shortness of breath cough, and fever for 2 days. COMPARISON: Chest x-ray 07/25/2018 and 08/22/2017 FINDINGS: LINES AND TUBES: None. LUNGS AND PLEURA: Patchy airspace opacity in the left midlung is new. There is also a very faint airspace opacity in the right upper to midlung. No pleural effusion. No pneumothorax. HEART, MEDIASTINUM AND FLOR: Heart is normal in size. Normal mediastinal and hilar contour. BONES AND SOFT TISSUES: No acute abnormality. IMPRESSION: Patchy airspace opacity in the left midlung and possible opacity in the right upper lung consistentwith developing pneumonia. This pattern would be compatible with COVID-19 infection in the appropriate clinical setting (fever, dry cough, lymphopenia), but other etiologies remain in the differential. Results communicated to Dr. Acuna at 4:06 PM on 12/17/2019. I have personally reviewed the images and I agree with this report. WSN: [id number] Ordering Physician: Emmett Grier Dictated By: Barrington Linton DO Dictated Date/Time: 12/17/19 4:19 pm Reviewed By: Vega Figueroa MD Signed By: Vega Figueroa MD Signed Date/Time: 12/17/19 4:24 pm Transcribed By: LAMONTE Transcribed Date/Time: 12/17/19 4:06 pm Vital Signs Most recent to oldest [Reference Range]: 1 2 3 Height 170 cm (12/18/19 2:16 PM) 170 cm (12/17/19 8:19 PM) 170 cm (12/17/19 5:29 PM) Weight 95.4 kg (12/17/19 8:19 PM) 96.0 kg (12/17/19 5:29 PM) 96.0 kg (12/17/19 4:21 PM) Oxygen Saturation [94-100 %] 100 % (12/18/19 6:00 PM) 100 % (12/18/19 5:45 PM) 100 % (12/18/19 5:30 PM) Pulse Rate [55-90 bpm] 92 bpm *H* (12/18/19 2:16 PM) 80 bpm (12/18/19 7:00 AM) 86 bpm (12/17/19 8:19 PM) Body Mass Index [18.5-24.99] 33.01 *>HHI* (12/17/19 8:19 PM) 33.22 *>HHI* (12/17/19 5:29 PM) 33.22 *>HHI* (12/17/19 4:21 PM) Blood Pressure [90-138/55-84 mm Hg] 119/73mm Hg (12/18/19 6:00 PM) 129/73mm Hg (12/18/19 5:45 PM) 134/76mm Hg (12/18/19 5:30 PM) Respiratory Rate [16-30 br/min] 22 br/min (12/18/19 6:00 PM) 22 br/min (12/18/19 5:45 PM) 18 br/min (12/18/19 5:30 PM) Temperature [96.8-100.4 DegF] 98.6 DegF (12/18/19 4:56 PM) 98.4 DegF (12/18/19 2:16 PM) 98.8 DegF (12/18/19 9:00 AM) Liters per Minute 2 L/min (12/18/19 2:16 PM) 2 L/min (12/18/19 7:00 AM) Mode of Delivery (Oxygen) Ventilator (12/18/19 5:00 PM) Nasal cannula (12/18/19 2:16 PM) Nasal cannula (12/18/19 7:00 AM) Blood pressure sites Arm, right (12/18/19 2:16 PM) Arm, right (12/17/19 8:19 PM) Arm, left (12/17/19 2:57 PM) Temperature Route Temporal (12/18/19 2:16 PM) Oral (12/18/19 5:00 AM) Oral (12/18/19 2:00 AM) Dry Weight 95.4 kg (12/17/19 8:19 PM) 96.0 kg (12/17/19 5:29 PM) 96.0 kg (12/17/19 4:21 PM) Weight Obtained Via Bed scale (12/17/19 8:19 PM) Dry Weight Obtained Via Standing scale (12/17/19 2:57 PM) Sensory deficits None (12/17/19 8:19 PM) Mobility assistance Independent (12/17/19 8:19 PM) Social History Social History Type Response Smoking Status Never smoker; Tobacc o user in household: Yes; Other: Mother smoked; entered on: 07/19/15 Sex
--- OUTSIDE RECORDS SUMMARY | 2024-03-05 11:34 | XMS_ITS | Continuity of Care Document ---
Author Organization [facility] [place] Address [address] [place] [address]- Care Team Providers Care Addiction Social Worker Name Role Phone Sameer RODGERS, July Guzman Primary Care Physician [phone] Encounter [facility] Date(s): 01/09/23 - 02/08/23 [facility] Adult [address] [place] [address]- Allergies, Adverse Reactions, Alerts Substance Reaction Severity [...] Toxoid Vaccine (oldterm) 09/23/03 Given 1Admin Note: donis 2Result Comment: [10/08/2018] [place] 3Result Comment: [07/22/2017] [place] 4Result Comment: [09/12/2016] got at work 5Location History: [place] 6Admin Note: [facility] 7Admin Note: work Medications Abilify [...] Team Personnel Name: Keith Patrick RN Position: [facility] RN Member Role: Primary Care Nurse Name: Shyann Salinas RN Position: [facility] RN Member Role: Primary Care Nurse Name: Tarik Davis RN Position: [facility] ED RN W/OE and Tasks Member Role: Primary Care Nurse Name: Rito Son RN Position: [facility] RN Member Role: Primary Care Nurse Name: Bridget Salas RN Position: [facility] RN Member Role: Primary Care Nurse Name: July Estrella NP Position: [facility] PCO Associate Professional Member Role: PCP Address: Address: [address] [place] [address], [place] [address]- [place] Name: Dayne VELAZQUEZ, Marah Saldana Position: S RN Member Role: Primary Care Nurse Name: Krupa Ventura RN Position: S RN Member Role: Primary Care Nurse Name: Jaclyn Terrazas RN Position: [facility] ED RN W/OE and Tasks Member Role: Primary Care Nurse Name: Bella Hall RN Position: S RN Member Role: Primary Care Nurse Care Team Related Persons Name: PRAVEEN FRANCOIS Address: [address] [place] [address]
--- OUTSIDE RECORDS SUMMARY | 2024-03-05 11:34 | XMS_ITS | Continuity of Care Document ---
Author Organization [facility] Anand Address [address] [place] [address]- Care Team Providers Care Sawmill Tally Clerk Name Role Phone Sameer RODGERS, July Guzamn Primary Care Physician Encounter [facility] Date(s): 01/14/23 - 01/21/23 [facility] Adult [address] [place] [address]- Encounter Diagnosis Depression, major, recurrent(Discharge Diagnosis) - 01/14/23 Attending Physician: Not on Staff, Attending MD Referring Physician: Sameer RODGERS, July Guzman Allergies, Adverse Reactions, Alerts Substance Reaction Severity [...] Comment: [09/12/2016] got at work 5Location History: [facility] 6Admin Note: [facility] 7Admin Note: work Medications Abilify [...] Diagnosis Diagnosis Type Effective Dates Health Status inical Service Informant Depression, major, recurrent Discharge Diagnosis 01/14/23 Vital Signs Most recent to oldest [Reference Range]: 1 Height 165 cm (01/14/23 12:39 PM) Weight 98.1 kg (01/14/23 12:39 PM) Oxygen Saturation [94-100 %] 99 % (01/14/23 12:39 PM) Pulse Rate [55-90 bpm] 88 bpm (01/14/23 12:39 PM) Body Mass Index [18.5-24.99 kg/m2] 36.03 kg/m2 *>HHI* (01/14/23 12:39 PM) Blood Pressure [90-138/55-84 mm Hg] 113/ 74mm Hg (01/14/23 12:39 PM) Blood pressure sites Arm, left (01/14/23 12:39 PM) Weight Obtained Via Standing scale (01/14/23 12:39 PM) Social History Social History Type Response Smoking Status Never smoker; Tobacc o user in household: Yes; Other: Mother smoked; entered on: 07/19/15 Sex Note * Moinque White: SIGN, VERIFY, PERFORM Event Display: Patient Education/Instruction Authored Date: [id number] [facility] *BMP So Rambo [place] Clinical Summary Name NED FRANCOIS Age 67 Years 1955 PCP Sameer RODGERS, July Guzman PCP Visit Date 01/14/2023 12:30:00 Additional Instructions: Scheduled Appointments?? Future Appointments ?No Future Appointments Scheduled Follow-Up Instructions ?? Diagnosis Major depressive disorder, recurrent, unspecified Medications: Please continue your medications until treatment is completed or stopped by your provider. Discuss any questions related to medications with your provider. Medications to Continue Taking That Have Changed These medications were not printed or sent to your pharmacy - Aripiprazole (Abilify 5 mg oral tablet) 1 tab(s) Oral Daily. Next Dose: - Clonazepam (clonazePAM 1 mg oral tablet) 1/2 tabs in am and 1 tab in evening. Next Dose: Medications to Continue with No Changes These medications were not printed or sent to your pharmacy ClomiPRAMINE (Anafranil 50 mg oral capsule) 1 capsule Oral Daily at Bedtime. Next Dose: Lorazepam (Ativan 0.5 mg oral [...] orders Vital Signs Height 165 cm Weight 98.1 kg BMI 36.03 kg/m2 Blood Pressure 113 mm Hg/74 mm Hg Temperature Pulse Rate 88 bpm Respiratory Rate 02 Sat Mode of Delivery 99 %/ You can now view a summary of your hospital visit from the comfort of your home through a free online portal called [employer]ToTest. [employer]To[employer] is a website that allows you to securely view your medical information including discharge summary, medications and follow-up visits. ??You can alsosend a secure electronic message to your doctor???s office to request appointments, renew medications or just ask a question. You can enroll at [email or web address] or register during your next office [...] primary care provider, you may find a [facility] provider by calling [facility] Link at [phone]. For information about the plan of care [...] Team Personnel Name: Keith Patrick RN Position: [facility] RN Member Role: Primary Care Nurse Name: Shyann Salinas RN Position: S RN Member Role: Primary Care Nurse Name: Tarik Davis RN Position: [facility] ED RN W/OE and Tasks Member Role: Primary Care Nurse Name: Rito Son RN Position: S RN Member Role: Primary Care Nurse Name: Bridget Salas RN Position: S RN Member Role: Primary Care Nurse Name: July Estrella NP Position: [facility] PCO Associate Professional Member Role: PCP Address: Address: [address] [place] [address]- Name: Marah Oscar RN Position: [facility] RN Member Role: Primary Care Nurse Name: Krupa Ventura RN Position: S RN Member Role: Primary Care Nurse Name: Jaclyn Terrazas RN Position: [facility] ED RN W/OE and Tasks Member Role: Primary Care Nurse Name: Bella Hall RN Position: S RN Member Role: Primary Care Nurse Care Team Related Persons Name: PRAVEEN FRANCOIS Address: [address] [address]
--- OUTSIDE RECORDS SUMMARY | 2024-03-05 11:34 | XMS_ITS | Continuity of Care Document ---
Author Organization [facility] Rambo Anand Address [address] [place] [address]- Care Team Providers Care Softball Winder Name Role Phone Sameer RODGERS, July Guzman Primary Care Physician [facility] Date(s): 12[facility]03[facility]23 - 12/10/23 [facility] Dilan [place] Adult [address] [place] [address]- Encounter Diagnosis Cough(Discharge Diagnosis) - 12/03/23 Attending Physician: Michael ROJAS-SODA TESTER-Daniella Huerta Allergies, Adverse Reactions, Alerts Substance Reaction Severity [...] 5Location History: [facility] 6Admin Note: [facility] 7Admin Note: work Medications Abilify 5 [...] opioid drug. Start Date: 10/25/20 Status: Ordered PARoxetine 40 mg oral tablet [...] drug. Start Date: 10/25/20 Status: Ordered SEROquel 300 mg oral tablet [...] H ealth Status Informant Anxiety Confirmed Active Cough Confirmed Active Female stress incontinence 1 Confirmed Active Gallstones 2 Confirmed Active GERD (gastroesophageal reflux disease) Confirmed Active History of cholecystectomy,lapa roscopic Confirmed 03/19/16 Active History of 2019 novel coronavirus disease (COVID-19) Confirmed 12/01/19 Active Hyperglycemia Confirmed Active IBS (irritable bowel syndrome) Confirmed Active Elevated LFTs Confirmed Active Mood disorder Confirmed Active Obese class I Confirmed Active Obesity Confirmed Active Osteopenia 3, 4 Confirmed Active Reactive airway disease Confirmed Active Depression, major, recurrent Confirmed Active Seasonal allergies Confirmed Active Fatty liver 5 Confirmed Active 1abnormal muscle;seees Dr Presley 2sono january 2016 3corecting VIT D 4neg 1.1 fem neck 5dr vahe,gastro addressing;per sonogram january 2016 Diagnosis Diagnosis Type Effective Dates Health Status Clini jose Service Informant Cough Discharge Diagnosis 12/03/23 Vital Signs Most recent to oldest [Reference Range]: 1 Height 165 cm (12/03/23 11:46 AM) Social History Social History Type Response Smoking Status Never smoker; Tobacc o user in household: Yes; Other: Mother smoked; entered on: 07/19/15 Sex Patient Care team information Care Team Personnel Name: Keith Patrick RN Position: [facility] RN Member Role: Primary Care Nurse Name: Tarik Davis RN Position: [facility] ED RN W/OE and Tasks Member Role: Primary Care Nurse Name: Bridget Salas RN Position: [facility] RN Member Role: Primary Care Nurse Name: July Estrella NP Position: [facility] PCO Associate Professional Member Role: PCP Address: Address: [address] [place] [address]- Name: Dayne RNMarah Position: [facility] AMB Nurse Member Role: Primary Care Nurse Name: Jaclyn Terrazas RN Position: [facility] ED RN W/OE and Tasks Member Role: Primary Care Nurse Name: Bella Hall RN Position: [facility] RN Member Role: Primary Care Nurse Care Team Related Persons Name: PRAVEEN FRANCOIS Address: [address] [address]
--- OUTSIDE RECORDS SUMMARY | 2024-03-05 11:34 | XMS_ITS | Continuity of Care Document ---
Author Organization [facility] Rambo Anand lt Address [address] [place] [address]- Care Team Providers Care Works Manager Name Role Phone Sameer RODGERS, July Guzman Primary Care Physician [facility]counter [facility] Date(s): 04/01/23 - 05/01/23 [facility] Dilan Acunaley Adult [address] [place] [address]- Allergies, Adverse Reactions, Alerts Substance Reaction Severity [...] at work 5Location History: [place] 6Admin Note: [facility] 7Admin Note: work Medications Abilify [...] Team Personnel Name: Keith Patrick RN Position: [facility] RN Member Role: Primary Care Nurse Name: Shyann Salinas RN Position: [facility] RN Member Role: Primary Care Nurse Name: Tarik Davis RN Position: [facility] ED RN W/OE and Tasks Member Role: Primary Care Nurse Name: Rito Son RN Position: [facility] RN Member Role: Primary Care Nurse Name: Bridget Salas RN Position: [facility] RN Member Role: Primary Care Nurse Name: July Estrlela NP Position: [facility] PCO Associate Professional Member Role: PCP Address: Address: [address] [place] [address], [place] [address]- [place] Name: Dayne RN, Marah Saldana Position: [facility] AMB Nurse Member Role: Primary Care Nurse Name: Krupa Ventura RN Position: [facility] RN Member Role: Primary Care Nurse Name: Jaclyn Terrazas RN Position: [facility] ED RN W/OE and Tasks Member Role: Primary Care Nurse Name: Bella Hall RN Position: [facility] RN Member Role: Primary Care Nurse Care Team Related Persons Name: PRAVEEN FRANCOIS Address: [address] [address]
--- OUTSIDE RECORDS SUMMARY | 2024-03-05 11:34 | XMS_ITS | Continuity of Care Document ---
Author Organization [facility] Rambo Anand lt Address [address] [place] [address]- Care Team Providers Care Finish Sander Name Role Phone Sameer RODGERS, July Guzman Primary Care Physician [phone] [facility]counter [facility] Date(s): 11/07/23 - 12/07/23 [facility] Dilan Acunaley Adult [address] [place] [address]- Allergies, Adverse Reactions, Alerts Substance Reaction Severity [...] Comment: [09/12/2016] got at work 5Location History: [facility] 6Admin Note: [facility] 7Admin [...] opioid drug. Start Date: 10/25/20 Status: Ordered doxycycline monohydrate 100 mg oral capsule 1 capsule = 100 mg, By Mouth, 2 times a day, for 7 days, may take with food to minimize abdominal discomfort with fluids avoid excessive sunlight, # 14 capsule, 0 Refills, Acute 12/10/23 11:41:00 EDT, 12/03/23 11:41:00 EDT, Capsule, [facility] Start Date: 12/03/23 Stop Date: 12/10/23 Status: Ordered PARoxetine 40 mg oral tablet [...] Team Personnel Name: Keith Patrick RN Position: [facility] RN Member Role: Primary Care Nurse Name: Tarik Davis RN Position: [facility] JEMMA RN W/OE and Tasks Member Role: Primary Care Nurse Name: Bridget Salas RN Position: [facility] RN Member Role: Primary Care Nurse Name: July Estrella NP Position: [facility] PCO Associate Professional Member Role: PCP Address: Address: [address] [place] [address]- [place] Name: Marah Oscar RN Position: [facility] AMB Nurse Member Role: Primary Care Nurse Name: Jaclyn Terrazas RN Position: [facility] ED RN W/OE and Tasks Member Role: Primary Care Nurse Name: Bella Hall RN Position: [facility] RN Member Role: Primary Care Nurse Care Team Related Persons Name: PRAVEEN FRANCOIS Address: [place] [address] [place] [address]
--- OUTSIDE RECORDS SUMMARY | 2024-03-05 11:34 | XMS_ITS | Continuity of Care Document ---
Author Organization [facility] Anand lt Address [address] [place] [address]- Care Team Providers Care Insurance Billing Specialist Name Role Phone Sameer RODGERS, July Guzman Primary Care Physician Encounter [facility] Date(s): 01/23/24 - 02/22/24 [facility] Adult [address] [place] [address]- Allergies, Adverse Reactions, Alerts Substance Reaction Severity [...] Comment: [09/12/2016] got at work 5Location History: [facility] 6Admin Note: [facility] 7Admin Note: work Medications Abilify [...] opioid drug. Start Date: 10/25/20 Status: Ordered naproxen 500 mg oral tablet 1 tablet, By Mouth, 2 times a day, # 28 tablet, 0 Refills, Maintenance, 02/18/24 11:38:00 EDT, [id number], 165, cm, 01/22/24 11:09:00 EDT, Height Start Date: 02/18/24 Stop Date: 03/03/24 Status: Ordered PARoxetine 40 mg oral tablet [...] Team Personnel Name: Keith Patrick RN Position: [facility] RN Member Role: Primary Care Nurse Name: Tarik Davis RN Position: [facility] ED RN W/OE and Tasks Member Role: Primary Care Nurse Name: Bridget Salas RN Position: [facility] RN Member Role: Primary Care Nurse Name: Sameer RODGERS, July Guzman Position: [facility] PCO Associate Professional Member Role: PCP Address: Address: [address] [place] [address]- Name: Marah Oscar RN Position: [facility] AMB Nurse Member Role: Primary Care Nurse Name: Jaclyn Terrazas RN Position: [facility] ED RN W/OE and Tasks Member Role: Primary Care Nurse Name: Bella Hall RN Position: [facility] RN Member Role: Primary Care Nurse Care Team Related Persons Name: PRAVEEN FRANCOIS Address: [place] [address] [place] [address]
--- OUTSIDE RECORDS SUMMARY | 2024-03-05 11:34 | XMS_ITS | Continuity of Care Document ---
Author Organization [facility] Anand lt Address [address] [place] [address]- Care Team Providers Care Warm In Worker Name Role Phone Sameer RODGERS, July Guzman Primary Care Physician [phone] Encounter [facility] Date(s): 08/26/23 - 09/25/23 [facility] Adult [address] [place] [address]- Allergies, Adverse Reactions, Alerts Substance Reaction Severity [...] work 5Location History: [facility] 6Admin Note: [facility] 7Admin Note: work Medications Abilify 5 [...] Team Personnel Name: Keith Patrick RN Position: S RN Member Role: Primary Care Nurse Name: Shyann Salinas RN Position: [facility] RN Member Role: Primary Care Nurse Name: Tarik Davis RN Position: [facility] ED RN W/OE and Tasks Member Role: Primary Care Nurse Name: Bridget Salas RN Position: [facility] RN Member Role: Primary Care Nurse Name: July Estrella NP Position: [facility] PCO Associate Professional Member Role: PCP Address: Address: [address] [place] [address]- Name: Marah Oscar RN Position: [facility] AMB Nurse Member Role: Primary Care Nurse Name: Jaclyn Terrazas RN Position: [facility] ED RN W/OE and Tasks Member Role: Primary Care Nurse Name: Bella Hall RN Position: [facility] RN Member Role: Primary Care Nurse Care Team Related Persons Name: PRAVEEN FRANCOIS Address: home [address] [place] [address]
--- OUTSIDE RECORDS SUMMARY | 2024-03-05 11:35 | XMS_ITS | Continuity of Care Document ---
Author Organization [facility] Anand lt Address [address] [place] [address]- Care Team Providers Care Ceramic Tiler Name Role Phone Sameer RODGERS, July Guzman Primary Care Physician [facility] Date(s): 03/27/23 - 04/26/23 [facility] Adult [address] [place] [address]- Allergies, Adverse Reactions, Alerts Substance Reaction Severity [...] at work 5Location History: [place] 6Admin Note: [facility] 7Admin [...] Team Personnel Name: Keith Patrick RN Position: [facility] RN Member Role: Primary Care Nurse Name: Shyann Salinas RN Position: [facility] RN Member Role: Primary Care Nurse Name: Tarik Davis RN Position: [facility] ED RN W/OE and Tasks Member Role: Primary Care Nurse Name: Rito Son RN Position: [facility] RN Member Role: Primary Care Nurse Name: Bridget Salas RN Position: [facility] RN Member Role: Primary Care Nurse Name: July Estrella NP Position: [facility] PCO Associate Professional Member Role: PCP Address: Address: [address] [place], [place] [address], [place] [address]- [place] Name: Dayne RN, Marah Saldana Position: [facility] AMB Nurse Member Role: Primary Care Nurse Name: Krupa Ventura RN Position: [facility] RN Member Role: Primary Care Nurse Name: Jaclyn Terrazas RN Position: [facility] ED RN W/OE and Tasks Member Role: Primary Care Nurse Name: Bella Hall RN Position: [facility] RN Member Role: Primary Care Nurse Care Team Related Persons Name: PRAVEEN FRANCOIS Address: [address] [place] [address]
--- OUTSIDE RECORDS SUMMARY | 2024-03-05 11:35 | XMS_ITS | Continuity of Care Document ---
Author Organization [facility] Rambo Anand lt Address [address] [place] [address]- Care Team Providers Care Primer Charger Name Role Phone Tracy RODGERS, Kinsey Primary Care Physician [facility] Date(s): 04/13/20 - 04/20/20 [facility] Adult [address] [place] [address]- [facility] Encounter Diagnosis Depression, major, recurrent(Discharge Diagnosis) - 04/13/20 Attending Physician: Tena Nogueira NP Allergies, Adverse [...] at work 5Location History: [place] 6Admin Note: [facility] em[facility] 7Admin Note: work Medications Abilify 10 mg oral tablet 10 mg, 1, tablet, By Mouth, Daily, Maintenance, 12/25/19 14:46:00 EDT Start Date: 12/25/19 Status: Ordered Anafranil 50 mg oral capsule 1 capsule = 50 mg, By Mouth, Daily at bedtime, 0 Refills, Maintenance, 04/13/20 15:09:00 EDT Start Date: 04/13/20 Status: Ordered buPROPion 150 mg/24 hours (XL) [...] 01/26/20 15:18:00 EDT, Route to Pharmacy Electronically, [facility]/pharmacy #[id number], 165, cm, 01/01/20 8:34:00 EDT, Height, [...] Dates Health Status Cl inical Service Informant Depression, major, recurrent Discharge Diagnosis 04/13/20 Social History Social History Type Response Smoking Status Never smoker; Tobacc o user in household: Yes; Other: Mother smoked; entered on: 07/19/15 Sex
--- OUTSIDE RECORDS SUMMARY | 2024-03-05 11:35 | XMS_ITS | Continuity of Care Document ---
Author Organization [facility] Anand Address [address] [place] [address]- Care Team Providers Care Drug Abuse Social Worker Name Role Phone Sameer RODGERS, July Guzman Primary Care Physician Encounter [facility] Date(s): 03/29/23 - 04/28/23 [facility] Adult [address] [place] [address]- Attending Physician: AdmEduardo chase Admitting Physician: AdmtrEduardo Referring Physician: Admtr, Ar8 Allergies, Adverse Reactions, Alerts Substance Reaction Severity [...] Comment: [09/12/2016] got at work 5Location History: [facility] 6Admin Note: [facility] em[facility] 7Admin Note: work Medications [...] neck 5dr vahe,gastro addressing;per sonogram january 2016 Procedures Procedure Date Related Diagnosis Body Site Status Upper gastrointestinal endos copy including esophagus, stomach, and either the duodenum and/or jejunum as appropriate; diagnostic, with or without collection of specimen(s) by brushing or washing (separate procedure) 1 06/06/11 Completed bone denisty 2 08/19/09 Completed 1gastritis,esophagitis biopsies pending 2neg 1.1 fem neck, normal spine Social History Social History Type Response Smoking Status Never smoker; Tobacc o user in household: Yes; Other: Mother smoked; entered on: 07/19/15 Sex EKG study * Event Display: EKG Authored Date: [id number] Laboratory * Event Display: Non BH Lab Results Authored Date: * Event Display: Non BH Lab Results Authored Date: * Event Display: Non BH Lab Results Authored Date: Hospital Progress note * Event Display: Progress Note Hospital Authored Date: Radiology * Event Display: Ultrasound Abdomen, Non-BH Authored Date: * Event Display: Ultrasound Abdomen, Non-BH Authored Date: * Event Display: Radiology Result Scanned Authored Date: * Latonya Patino: PERFORM Event Display: Radiology Results Scanned Authored Date: * Ned Cheng: PERFORM Event Display: Radiology Results Scanned Authored Date: Patient Care team information Care Team Personnel Name: Keith Patrick RN Position: [facility] RN Member Role: Primary Care Nurse Name: Shyann Salinas RN Position: [facility] RN Member Role: Primary Care Nurse Name: Tarik Davis RN Position: [facility] ED RN W/OE and Tasks Member Role: Primary Care Nurse Name: Rito Son RN Position: [facility] RN Member Role: Primary Care Nurse Name: Bridget Salas RN Position: [facility] RN Member Role: Primary Care Nurse Name: July Estrella NP Position: [facility] PCO Associate Professional Member Role: PCP Address: Address: [address] [place] [address]- Name: Marah Oscar RN Position: [facility] AMB Nurse Member Role: Primary Care Nurse Name: Krupa Ventura RN Position: [facility] RN Member Role: Primary Care Nurse Name: Jaclyn Terrazas RN Position: [facility] ED RN W/OE and Tasks Member Role: Primary Care Nurse Name: Bella Hall RN Position: [facility] RN Member Role: Primary Care Nurse Care Team Related Persons Name: PRAVEEN FRANCOIS Address: [address] [place] [address]
--- OUTSIDE RECORDS SUMMARY | 2024-03-05 11:35 | XMS_ITS | Continuity of Care Document ---
Author Organization [facility] Anand Address [address] [place] [address]- Care Team Providers Care Button Maker Name Role Phone Sameer RODGERS, July Guzman Primary Care Physician Encounter [facility] Date(s): 01/14/23 - 02/13/23 [facility] Adult [address] [place] [address]- Attending Physician: AdmEduardo chase Admitting Physician: AdmtrEduardo [...] Comment: [09/12/2016] got at work 5Location History: [facility] 6Admin Note: [facility] 7Admin Note: work Medications Abilify 5 [...] study * Event Display: EKG Authored Date: [id number] Laboratory * Event Display: Non BH Lab [...] Care Nurse Name: Shyann Salinas RN Position: [facility] RN Member Role: Primary Care Nurse Name: Tarik Davis RN Position: [facility] ED RN W/OE and Tasks Member Role: Primary Care Nurse Name: Rito Son RN Position: [facility] RN Member Role: Primary Care Nurse Name: Bridget Salas RN Position: S RN Member Role: Primary Care Nurse Name: Juyl Estrella NP Position: [facility] PCO Associate Professional Member Role: PCP Address: Address: [address] [place] [address]- Name: Marah Oscar RN Position: S RN Member Role: Primary Care Nurse Name: Krupa Ventura RN Position: [facility] RN Member Role: Primary Care Nurse Name: Jaclyn Terrazas RN Position: [facility] ED RN W/OE and Tasks Member Role: Primary Care Nurse Name: Bella Hall RN Position: [facility] RN Member Role: Primary Care Nurse Care Team Related Persons Name: PRAVEEN FRANCOIS Address: [address] [place] [address]
--- OUTSIDE RECORDS SUMMARY | 2024-03-05 11:35 | XMS_ITS | Continuity of Care Document ---
Author Organization [facility] Anand lt Address [address] [place] [address]- Care Team Providers Care Pitching Coach Name Role Phone Kinsey Molina NP Primary Care Physician [facility] - 12[facility]11/20 [facility] Dilan Acunaley Adult [address] [place] [address]- Allergies, Adverse Reactions, Alerts Substance Reaction Severity Status shellfish Active Sudafed Hyperactivity Active Immunizations Given and Recorded Vaccine Date Status Refusal Reason SARS-CoV-2 (COVID-19) mRNA-1273 vaccine 11/11/20 R ecorded SARS-CoV-2 (COVID-19) mRNA-1273 vaccine 10/14/20 R ecorded influenza virus vaccine, inactivated 07/03/20 Dev rded influenza virus vaccine, inactivated 1 07/30/18 Re corded influenza virus vaccine, inactivated 2 06/24/17 Re corded influenza virus vaccine, inactivated 3 07/13/16 Re corded influenza virus vaccine, inactivated 07/19/15 Give n influenza virus vaccine, inactivated 4 07/13/14 Re corded influenza virus vaccine, inactivated 5 06/23/13 Gi lucie influenza virus vaccine, inactivated 6 07/28/11 Gi lucie Influenza Virus Vaccine (oldterm) 06/23/19 Recorde d Influenza Virus Vaccine (oldterm) 7 09/21/09 Given Influenza Virus Vaccine (oldterm) 07/24/07 Given tetanus/diphtheria/pertussis, acel(Tdap) 03/16/13 Given Tetanus Toxoid Vaccine (oldterm) 09/23/03 Given 1Result Comment: [10/08/2018] [place] 2Result Comment: [07/22/2017] [place] 3Result Comment: [09/12/2016] got at work 4Location History: [facility] 5Admin Note: [facility] 6Admin Note: work 7Admin Note: declined Medications Anafranil 50 mg oral capsule 1 capsule = 50 mg, By Mouth, Daily at bedtime, 0 Refills, Maintenance, 04/13/20 15:09:00 EDT Start Date: 04/13/20 Status: Ordered ARIPiprazole 5 mg oral tablet 5 mg, 1, tablet, By Mouth, Daily, # 30 tablet, Refills 0, Maintenance, 10/25/20 11:30:00 EST, Partial fill upon patient request if the prescription is for a schedule II opioid drug. Start Date: 10/25/20 Status: Ordered Ativan 0.5 mg oral tablet 1 tablet = 0.5 mg, By Mouth, 0 Refills, Maintenance, 10/25/20 9:04:00 EST, Partial fill upon patient request if the prescription is for a schedule II opioid drug. Start Date: 10/25/20 Status: Ordered buPROPion 150 mg/24 hours (XL) [...] opioid drug. Start Date: 10/25/20 Status: Ordered QUEtiapine 200 mg oral tablet [...] bowel syndrome)(Confirmed) Active Fecal incontinence(Confirmed) 4 Active Elevated LFTs(Confirmed) Active Mood disorder(Confirmed) Active Obesity(Confirmed) Active Osteopenia(Confirmed) 5, 6 Active Depression, major, recurrent(Confirmed) Active Seasonal allergies(Confirmed) Active Fatty liver(Confirmed) 7 Active 1abnormal muscle;seees Dr Presley 2sono january 2016 3right T 5 dermatome 4Drs Vahe.Gm addressing 5corecting VIT D 6neg 1.1 fem neck 7dr vahe,gastro addressing;per sonogram january 2016 Social History Social History Type Response Smoking Status Never smoker; Tobacc o user in household: Yes; Other: Mother smoked; entered on: 07/19/15 Sex
--- OUTSIDE RECORDS SUMMARY | 2024-03-05 11:35 | XMS_ITS | Continuity of Care Document ---
Author Organization [facility] Anand lt Address [address] [place] [address]- Care Team Providers Care Part Time Receptionist Name Role Phone Samere RODGERS, July Guzman Primary Care Physician [facility] 02[facility]13/22 - 03/15/22 [facility] Adult [address] [place] [address]- Allergies, Adverse Reactions, Alerts Substance Reaction Severity [...] acel(Tdap) 03/16/13 Given Tetanus Toxoid Vaccine (oldterm) 1/1/04 Given 1Admin Note: declined 2Result Comment: [10/08/2018] [place] 3Result Comment: [07/22/2017] [place] 4Result Comment: [09/12/2016] got at work 5Location History: [place] 6Admin Note: [facility] 7Admin Note: work Medications Anafranil 50 mg oral capsule 1 [...] Effective Dates Status Health Status Inform ant Anxiety(Confirmed) Active Female stress incontinence(C onfirmed) 1 Active Gallstones(Confirmed) 2 Active GERD (gastroesophageal reflu x disease)(Confirmed) Active History of cholecystectomy,laparoscopic(Confirmed ) 03/19/16 Active History of 2019 novel marlow virus disease (COVID-19)(Confirmed) 12/01/19 Active Hyperglycemia(Confirmed) Active IBS (irritable bowel syndrome)(Confirmed) Active Elevated LFTs(Confirmed) Active Mood disorder(Confirmed) Active Obese class II(Confirmed) Active Obesity(Confirmed) Active Osteopenia(Confirmed) 3, 4 Active Depression, major, recurrent(Confirmed) Active Seasonal allergies(Confirmed) Active Fatty liver(Confirmed) 5 Active 1abnormal muscle;seees Dr Presley 2sono january 2016 3corecting VIT D 4neg 1.1 fem neck 5dr vahe,gastro addressing;per sonogram january 2016 Social History Social History Type Response Smoking Status Never smoker; Tobacc o user in household: Yes; Other: Mother smoked; entered on: 07/19/15 Sex
--- OUTSIDE RECORDS SUMMARY | 2024-03-05 11:35 | XMS_ITS | Continuity of Care Document ---
Author Organization [facility] Address [address] [facility] [place] [address]- Care Team Providers Care Cloth Boil Off Machine Operator Name Role Phone Sameer RODGERS, July Guzman Primary Care Physician [phone] Encounter 04/12/22 - 04/19/22 [facility] [address], [facility] [address] [place] [address]- Attending Physician: Sameer RODGERS, July Guzman Admitting Physician: Sameer RODGERS, July Guzman Referring Physician: Sameer RODGERS, July Guzman Allergies, [...] Comment: [09/12/2016] got at work 5Location History: [facility] 6Admin Note: [facility] 7Admin Note: work Medications Anafranil 50 [...]
--- OUTSIDE RECORDS SUMMARY | 2024-03-05 11:35 | XMS_ITS | Continuity of Care Document ---
Author Organization [facility] Anand lt Address [address] [place] [address]- Care Team Providers Care Precision Assembler Bench Name Role Phone Kinsey Molina NP Primary Care Physician [phone] Encounter [facility] Date(s): 11/17/20 - 11/24/20 [facility] Adult [address] [place] [address]- Encounter Diagnosis Fatty liver(Discharge Diagnosis) - 11/20/20 Elevated LFTs(Discharge Diagnosis) - 11/20/20 Attending Physician: Not on Staff, Attending MD Allergies, Adverse Reactions, Alerts Substance Reaction [...] Virus Vaccine (oldterm) 07/24/07 Given tetanus/diphtheria/pertussis, acel(Tdap) 6/24/13 Given Tetanus Toxoid Vaccine (oldterm) 09/23/03 Given 1Result Comment: [10/08/2018] kimberly 2Result Comment: [07/22/2017] denisevijay 3Result Comment: [09/12/2016] got at work 4Location History: [place] 5Admin Note: [facility] 6Admin Note: work 7Admin Note: [...] Dates Health Status Cl inical Service Informant Fatty liver Discharge Diagnosis 11/20/20 Elevated LFTs Discharge Diagnosis 11/20/20 Vital Signs Most recent to oldest [Reference Range]: 1 Height 165 cm (11/17/20 1:43 PM) Temperature [96.8-100.4 DegF] 97.7 DegF (11/17/20 1:43 PM) Social History Social History Type Response Smoking Status Never smoker; Tobacc o user in household: Yes; Other: Mother smoked; entered on: 07/19/15 Sex
--- OUTSIDE RECORDS SUMMARY | 2024-03-05 11:35 | XMS_ITS | Continuity of Care Document ---
Author Organization [facility] Anand lt Address [address] [place] [address]- Care Team Providers Care Dental Technology Advisor Name Role Phone Kinsey Molina NP Primary Care Physician [phone] [facility]s): 02/28/21 - 03/30/21 [facility] Adult [address] [place] [address]- Allergies, Adverse Reactions, Alerts Substance Reaction Severity [...] Comment: [09/12/2016] got at work 4Location History: [facility] 5Admin Note: [facility] 6Admin Note: work 7Admin Note: [...] opioid drug. Start Date: 10/25/20 Status: Ordered pregabalin 75 mg oral capsule 1 capsule = 75 mg, By Mouth, 2 times a day, # 60 capsule, 0 Refills, Maintenance, 02/27/21 17:34:00EDT, Capsule, [facility]/pharmacy #[id number], Partial fill upon patient request if the prescription is for a schedule II opioid drug., 165, cm, 02/23/21 15:47:00 E... Start Date: 02/27/21 Status: Ordered PriLOSEC OTC 20 mg oral [...] 3:51:00 EDT Start Date: 12/19/19 Status: Ordered Voltaren 1% topical gel 1 application, Topically, 4 times a day, PRN for pain, # 100 Gm, 1 Refills, Maintenance, 03/02/21 16:50:00 EDT, Gel, [facility]/pharmacy #[id number], Partial fill upon patient request if the prescription is for aschedule II opioid drug., 1 application Topically 4... Start Date: 03/02/21 Status: Ordered Problem List Condition Effective Dates Status Health Status Inform ant Acute sinusitis(Confirmed) Active Adult BMI 27.0-27.9 kg/sq m(Confirmed) Active Mid back pain(Confirmed) Active Female stress incontinence(C onfirmed) 1 Active Hot flashes(Confirmed) Active Gallstones(Confirmed) 2 Active Gastro - esophageal reflux(Confirmed) Active GERD (gastroesophageal reflu x disease)(Confirmed) Active H/O herpes zoster 2008 rt T5 dermatome(Confirmed) 3 Active History of cholecystectomy,laparoscopic(Confirmed ) 03/19/16 Active History of 2019 novel marlow virus disease (COVID-19)(Confirmed) 12/01/19 Active Hyperalgesia rt chest(Confirmed) 02/26/21 Active Hyperglycemia(Confirmed) Active IBS (irritable bowel syndrome)(Confirmed) Active Fecal incontinence(Confirmed) 4 Active Elevated LFTs(Confirmed) Active Mood disorder(Confirmed) Active Neuropathic pain rt t5 derma tome February 2021(Confirmed) 02/23/21 Active Obesity(Confirmed) Active Osteopenia(Confirmed) 5, 6 Active [...]
--- OUTSIDE RECORDS SUMMARY | 2024-03-05 11:35 | XMS_ITS | Continuity of Care Document ---
Author Organization [facility] Rambo Anand Address [address] [place] [address]- Care Team Providers Care Blocker Hand Name Role Phone Sameer RODGERS, July Guzman Primary Care Physician [facility] Date(s): 05/15/23 - 06/14/23 [facility] Adult [address] [place] [address]- Allergies, Adverse Reactions, Alerts Substance Reaction Severity [...] at work 5Location History: [place] 6Admin Note: [facility] 7Admin Note: work Medications Abilify [...] Team Personnel Name: Keith Patrick RN Position: [facility] RN Member Role: Primary Care Nurse Name: Shyann Salinas RN Position: [facility] RN Member Role: Primary Care Nurse Name: Tarik Davis RN Position: [facility] ED RN W/OE and Tasks Member Role: Primary Care Nurse Name: Rito Son RN Position: [facility] RN Member Role: Primary Care Nurse Name: Bridget Salas RN Position: [facility] RN Member Role: Primary Care Nurse Name: July Estrella NP Position: [facility] PCO Associate Professional Member Role: PCP Address: Address: [address] [place], [place] [address], [place] [address]- [place] Name: Dayne RN, Marah Saldana Position: [facility] AMB Nurse Member Role: Primary Care Nurse Name: Krupa Ventura RN Position: [facility] RN Member Role: Primary Care Nurse Name: Jaclyn Terrazas RN Position: [facility] ED RN W/OE and Tasks Member Role: Primary Care Nurse Name: Bella Hall RN Position: [facility] RN Member Role: Primary Care Nurse Care Team Related Persons Name: PRAVEEN FRANCOIS Address: [address] [place] [address]
--- OUTSIDE RECORDS SUMMARY | 2024-03-05 11:35 | XMS_ITS | Continuity of Care Document ---
Author Organization [facility] Dilan Ricks Anand Address [address] [place] [address]- Care Team Providers Care Hearing Care Practitioner Name Role Phone Mirlande RODGERS, Tena Mercado Primary Care Physician Encounter [facility] Date(s): 01/08/20 - 01/15/20 [facility] Dilan Acunaley Adult [address] [place] [address]- [facility] Encounter Diagnosis Depression, major, recurrent(Discharge Diagnosis) - 01/08/20 COVID-19(Discharge Diagnosis) - 01/08/20 Attending Physician: Tena Nogueira NP Allergies, Adverse [...] Comment: [09/12/2016] got at [facility] 6Admin Note: [facility] 7Admin Note: work Medications Abilify 10 [...] Service Informant Depression, major, recurrent Discharge Diagnosis 01/08/20 COVID-19 Discharge Diagnosis 01/08/20 Social History Social History Type Response Smoking Status Never smoker; Tobacc o user in household: Yes; Other: Mother smoked; entered on: 07/19/15 Sex
--- OUTSIDE RECORDS SUMMARY | 2024-03-05 11:35 | XMS_ITS | Continuity of Care Document ---
Author Organization [facility] Rambo Anand lt Address [address] [place] [address]- Care Team Providers Care Pressurised Container Filler Name Role Phone Sameer RODGERS, July Guzman Primary Care Physician Encounter [facility] Date(s): 08/22/23 - 08/29/23 [facility] Dilan Acunaley Adult [address] [place] [address]- Encounter Diagnosis Medicare annual wellness visit, subsequent(Discharge Diagnosis) - 08/22/23 Depression, major, recurrent(Discharge Diagnosis) - 08/22/23 GERD (gastroesophageal reflux disease)(Discharge Diagnosis) - 08/22/23 Severe obesity (BMI 35.0-39.9) with comorbidity(Discharge Diagnosis) - 08/22/23 Upper respiratory infection(Discharge Diagnosis) - 08/22/23 Attending Physician: July Estrella NP Referring Physician: Yonatan Cochran MD Allergies, Adverse Reactions, Alerts Substance Reaction [...] Comment: [09/12/2016] got at work 5Location History: [facility] 6Admin Note: [facility] 7Admin Note: work Medications [...] opioid drug. Start Date: 10/25/20 Status: Ordered benzonatate 100 mg oral capsule 1 capsule = 100 mg, By Mouth, 3 times a day, for 10 days, # 30 capsule, 0 Refills, Acute 09/06/23 14:03:00 EST, 08/27/23 14:03:00 EST, Capsule, [id number], Partial fill upon patient request if the prescription is for a schedule II opi... Start Date: 08/27/23 Stop Date: 09/06/23 Status: Ordered clonazePAM 1 mg oral tablet See Instructions, 1/2 tabs in am and 1 tab in evening, 0 Refills, Maintenance, 12/19/19 3:52:00 EDT, Tablet Start Date: 12/19/19 Status: Ordered doxycycline hyclate 100 mg oral capsule 1 capsule = 100 mg, By Mouth, 2 times a day, for 10 days, # 20 capsule, 0 Refills, Acute 09/01/23 8:17:00 EST, 08/22/23 8:17:00 EST, [id number], Partial fill upon patient request if the prescription is for a schedule II opioid drug.,... Start Date: 08/22/23 Stop Date: 09/01/23 Status: Ordered PARoxetine 40 mg oral tablet [...] Diagnosis Diagnosis Type Effective Dates Health Status Clinical Service Informant Medicare annual wellness visit, subsequent Discharge Diagnosis 08/22/23 Depression, major, recurrent Discharge Diagnosis 08/22/23 GERD (gastroesophageal reflux disease) Discharge Diagnosis 08/22/23 Severe obesity (BMI 35.0-39.9) with comorbidity Discharge Diagnosis 08/22/23 Upper respiratory infection Discharge Diagnosis 08/22/23 Vital Signs Most recent to oldest [Reference Range]: 1 Height 165 cm (08/22/23 7:47 AM) Weight 98.3 kg (08/22/23 7:47 AM) Oxygen Saturation [94-100 %] 99 % (08/22/23 7:47 AM) Pulse Rate [55-90 bpm] 89 bpm (08/22/23 7:47 AM) Body Mass Index [18.5-24.99 kg/m2] 36.11 kg/m2 *>HHI* (08/22/23 7:47 AM) Blood Pressure [90-138/55-84 mm Hg] 137/ 81mm Hg (08/22/23 7:47 AM) Blood pressure sites Arm, right (08/22/23 7:47 AM) Weight Obtained Via Standing scale (08/22/23 7:47 AM) Social History Social History Type Response Smoking Status Never smoker; Tobacc o user in household: Yes; Other: Mother smoked; entered on: 07/19/15 Sex Note * Monique White: PERFORM, SIGN, VERIFY Event Display: Patient Education/Instruction Authored Date: [id number] [facility] *[facility] So Rambo [place] Clinical Summary Name NED FRANCOIS Age 67 Years 1955 PCP Sameer RODGERS, July Guzman PCP Visit Date 08/22/2023 07:45:00 Additional Instructions: Scheduled Appointments?? Future Appointments ?No Future Appointments Scheduled Follow-Up Instructions ?? With: Address: When: Follow up, 1 Year for Physical Diagnosis Medications: Please continue your medications until treatment is completed or stopped by your provider. Discuss any questions related to medications with your provider. New Medications [id number], [address] [place] [address] [phone], [phone] Doxycycline (doxycycline hyclate 100 mg oral capsule) 1 capsule Oral twice a day for 10 Days. Refills: 0. Next Dose: PredniSONE (predniSONE 20 mg oral tablet) 1 tab(s) Oral Daily for 5 Days. Refills: 0. Next Dose: Medications to Continue Taking That Have Changed These medications were not printed or sent to your pharmacy - Quetiapine (SEROquel 25 mg oral tablet) 1 tab(s) Oral Daily. take at 8 am. Next Dose: - Quetiapine (SEROquel 300 mg oral tablet) 1 tab(s) Oral Daily at Bedtime. Next Dose: Medications to Continue with No Changes These medications were not printed or sent to your pharmacy Albuterol (albuterol CFC free 90 mcg/inh inhalation aerosol) 2 puff(s) Inhalation every 6 hours. Next Dose: Aripiprazole (Abilify 5 mg oral tablet) 1 tab(s) Oral Daily. Next Dose: ClomiPRAMINE (Anafranil 50 mg oral capsule) 1 capsule Oral Daily at Bedtime. Next Dose: Clonazepam (clonazePAM 1 mg oral tablet) 1/2 tabs in am and 1 tab in evening. Next Dose: fluticasone/umeclidinium/vilanterol (Trelegy Ellipta 200 mcg-62.5 mcg-25 mcg/inh inhalation powder)1 puff(s) Inhalation Daily. Next Dose: Lorazepam (Ativan 0.5 mg oral tablet) 1 tab(s) Oral. Next Dose: Omeprazole (PriLOSEC OTC 20 mg oral delayed release tablet) 1 tab(s) Oral Daily. Next Dose: Paroxetine (PARoxetine 40 mg oral tablet) 1 tab(s) Oral Daily. Next Dose: No Longer Take the Following Medications Propranolol (propranolol 10 mg oral tablet) 1 tab(s) Oral Daily. Allergy Info:?? Lyrica; Sudafed; shellfish Medications Given This Visit Future Orders ?Lipid Panel? Order Date:08/22/23?- Complete on or after?08/22/23 ?Comprehensive Metabolic Panel? Order Date:08/22/23?- Complete on or after?08/22/23 Vital Signs Height 165 cm Weight 98.3 kg BMI 36.11 kg/m2 Blood Pressure 137 mm Hg/81 mm Hg Temperature Pulse Rate 89 bpm Respiratory Rate 02 Sat Mode of Delivery 99 %/ You can now view a summary of your hospital visit from the comfort of your home through a free online portal called GetFeedback. GetFeedback is a website that allows you to securely view your medical information including discharge summary, medications and follow-up visits. ??You can alsosend a secure electronic message to your doctor???s office to request appointments, renew medications or just ask a question. You can enroll at [email or web address] or register during your next office visit. [...] primary care provider, you may find a [facility] provider by calling [facility] at [phone]. [facility], in keeping with [facility] guidance, no longer requires face masks for [...] Team Personnel Name: Keith Patrick RN Position: [facility] RN Member Role: Primary Care Nurse Name: Shyann Salinas RN Position: [facility] RN Member Role: Primary Care Nurse Name: Tarik Davis RN Position: [facility] ED RN W/OE and Tasks Member Role: Primary Care Nurse Name: Bridget Salas RN Position: [facility] RN Member Role: Primary Care Nurse Name: July Estrella NP Position: [facility] PCO Associate Professional Member Role: PCP Address: Address: [address] [place] [address]- Name: Marah Oscar RN Position: [facility] AMB Nurse Member Role: Primary Care Nurse Name: Jaclyn Terrazas RN Position: [facility] ED RN W/OE and Tasks Member Role: Primary Care Nurse Name: Bella Hall RN Position: [facility] RN Member Role: Primary Care Nurse Care Team Related Persons Name: PRAVEEN FRANCOIS Address: [address] [address]
--- OUTSIDE RECORDS SUMMARY | 2024-03-05 11:35 | XMS_ITS | Continuity of Care Document ---
Author Organization [facility] Rambo Anand lt Address [address] [place] [address]- Care Team Providers Care Can Washer Name Role Phone Kinsey Molina NP Primary Care Physician [facility] Date[facility]s): 08/17/20 - 09/16/20 [facility] Dilan Acunaley Adult [address] [place] [address]- Allergies, Adverse Reactions, Alerts Substance Reaction Severity [...] work 5Location History: [place] 6Admin Note: [facility] 7Admin Note: work Medications Abilify 10 [...] 01/26/20 15:18:00 EDT, Route to Pharmacy Electronically, [facility]/pharmacy #[id number], 165, cm, 01/01/20 8:34:00 [...]
--- OUTSIDE RECORDS SUMMARY | 2024-03-05 11:35 | XMS_ITS | Continuity of Care Document ---
Author Organization [facility] Anand lt Address [address] [place] [address]- Care Team Providers Care Bell Valet Name Role Phone Sameer RODGERS, July Guzman Primary Care Physician [facility] Date(s): 01/20/24 - 02/19/24 [facility] Adult [address] [place] [address]- Allergies, Adverse Reactions, Alerts Substance Reaction Severity [...] [facility] 6Admin Note: [facility] 7Admin Note: work Medications [...] tablet, 0 Refills, Maintenance, 02/18/24 11:38:00 EDT, [id number], 165, cm, 01/22/24 11:09:00 EDT, Height Start [...] Team Personnel Name: Keith Patrick RN Position: [facility] RN Member Role: Primary Care Nurse Name: Tarik Davis RN Position: [facility] ED RN W/OE and Tasks Member Role: Primary Care Nurse Name: Bridget Salas RN Position: [facility] RN Member Role: Primary Care Nurse Name: July Estrella NP Position: [facility] PCO Associate Professional Member Role: PCP Address: Address: [address] [place] [address]- [place] Name: Dayne RNMarah Position: [facility] AMB Nurse Member Role: Primary Care Nurse Name: Jaclyn Terrazas RN Position: [facility] ED RN W/OE and Tasks Member Role: Primary Care Nurse Name: Bella Hall RN Position: [facility] RN Member Role: Primary Care Nurse Care Team Related Persons Name: PRAVEEN FRANCOIS Address: home [address] [place] [address]
--- OUTSIDE RECORDS SUMMARY | 2024-03-05 11:35 | XMS_ITS | Continuity of Care Document ---
Author Organization [facility] ter Address [address] [place] [address]- Care Team Providers Care Land Title Examiner Name Role Phone Sameer RODGERS, July Guzman Primary Care Physician Encounter [facility] Date(s): 03/19/22 - 04/28/[address] [address] Attending Physician: Sameer RODGERS, July Guzman Admitting [...] Comment: [09/12/2016] got at work 5Location History: [facility] 6Admin Note: [facility] 7Admin Note: work Medications Anafranil 50 [...]
--- OUTSIDE RECORDS SUMMARY | 2024-03-05 11:35 | XMS_ITS | Continuity of Care Document ---
Author Organization [facility] Rambo Anand lt Address [address] [place] [address]- Care Team Providers Care Relief Mate Name Role Phone Sameer RODGERS, July Guzman Primary Care Physician [phone] Encounter [facility] Date(s): 04/06/22 - 04/13/22 [facility] Adult [address] [place] [address]- Encounter Diagnosis Dyspnea on exertion(Discharge Diagnosis) - 04/06/22 Panic attacks(Discharge Diagnosis) - 04/06/22 Attending Physician: Debo Davis Allergies, Adverse Reactions, Alerts Substance Reaction Severity [...] Comment: [09/12/2016] got at work 5Location History: [facility] 6Admin Note: [facility] 7Admin Note: work Medications Anafranil [...] Dates Health Status Cl inical Service Informant Dyspnea on exertion Discharge Diagnosis 04/06/22 Panic attacks Discharge Diagnosis 04/06/22 Vital Signs Most recent to oldest [Reference Range]: 1 2 Height 165 cm (04/06/22 10:00 AM) 165 cm (04/06/22 9:23 AM) Weight 99.36 kg (04/06/22 10:00 AM) 99.36 kg (04/06/22 9:23 AM) Oxygen Saturation [94-100 %] 100 % (04/06/22 9:23 AM) Pulse Rate [55-90 bpm] 73 bpm (04/06/22 9:23 AM) Body Mass Index [18.5-24.99] 36.5 *>HHI* (04/06/22 9:23 AM) Blood Pressure [90-138/55-84 mm Hg] 107/ 58mm Hg (04/06/22 9:23 AM) Temperature [96.8-100.4 DegF] 96.5 DegF *L* (04/06/22 9:23 AM) Blood pressure sites Arm, left (04/06/22 9:23 AM) Temperature Route Temporal (04/06/22 9:23 AM) Weight Obtained Via Standing scale (04/06/22 9:23 AM) Social History Social History Type Response Smoking Status Never smoker; Tobacc o user in household: Yes; Other: Mother smoked; entered on: 07/19/15 Sex
--- OUTSIDE RECORDS SUMMARY | 2024-03-05 11:35 | XMS_ITS | Continuity of Care Document ---
Author Organization [facility] Rambo Anand lt Address [address] [place] [address]- Care Team Providers Care Dynamicist Name Role Phone Sameer RODGERS, July Guzman Primary Care Physician Encounter [facility] [place] [facility] Date(s): 02/03/24 - 03/04/24 [facility] Adult [address] [place] [address]- Allergies, Adverse Reactions, Alerts Substance Reaction Severity [...] got at work 5Location History: [facility] 6Admin Note: [facility] 7Admin Note: work Medications [...] tablet, 0 Refills, Maintenance, 02/18/24 11:38:00 EDT, [facility] #[id number], 165, cm, 01/22/24 11:09:00 EDT, Height Start [...] Personnel Name: Keith Patrick RN Position: [facility] RN Member Role: Primary Care Nurse Name: Tarik Davis RN Position: [facility] ED RN W/OE and Tasks Member Role: Primary Care Nurse Name: Bridget Salas RN Position: [facility] RN Member Role: Primary Care Nurse Name: Sameer RODGERS, July Guzman Position: [facility] PCO Associate Professional Member Role: PCP Address: Address: [address] [place] [address]- Name: Marah Oscar RN Position: [facility] AMB Nurse Member Role: Primary Care Nurse Name: Jaclyn Terrazas RN Position: [facility] ED RN W/OE and Tasks Member Role: Primary Care Nurse Name: Bella Hall RN Position: [facility] RN Member Role: Primary Care Nurse Care Team Related Persons Name: PRAVEEN FRANCOIS Address: [address] [place] [address]
--- OUTSIDE RECORDS SUMMARY | 2024-03-05 11:36 | XMS_ITS | Continuity of Care Document ---
Author Organization [facility] Anand Address [address] [place] [address]- Care Team Providers Care Biostatistics Professor Name Role Phone Sameer RODGERS, July Guzman Primary Care Physician [phone] Encounter [facility] [place] Date(s): 12/03/23 - 01/02/24 [facility] Adult [address] [place] [address]- Attending Physician: AdmEduardo chase Admitting Physician: AdmtrEduardo [...] Comment: [09/12/2016] got at work 5Location History: [facility] 6Admin Note: [facility] 7Admin Note: work Medications [...] study * Event Display: EKG Authored Date: Laboratory * Event Display: Non BH Lab [...] Team Personnel Name: Keith Patrick RN Position: [facility] RN Member Role: Primary Care Nurse Name: Tarik Davis RN Position: [facility] ED RN W/OE and Tasks Member Role: Primary Care Nurse Name: Bridget Salas RN Position: [facility] RN Member Role: Primary Care Nurse Name: July Estrella NP Position: [facility] PCO Associate Professional Member Role: PCP Address: Address: [address] [place] [address]- Name: Marah Oscar RN Position: [facility] AMB Nurse Member Role: Primary Care Nurse Name: Jaclyn Terrazas RN Position: [facility] ED RN W/OE and Tasks Member Role: Primary Care Nurse Name: Bella Hall RN Position: [facility] RN Member Role: Primary Care Nurse Care Team Related Persons Name: PRAVEEN FRANCOIS Address: home [address] [place] [address]
--- OUTSIDE RECORDS SUMMARY | 2024-03-05 11:36 | XMS_ITS | Continuity of Care Document ---
Author Organization [facility] Rambo Anand Address [address] [place] [address]- Care Team Providers Care Rubber And Plastics Worker Name Role Phone Mirlande RODGERS, Tena Mercado Primary Care Physician Encounter [facility] Date(s): 12/17/19 - 12/24/19 [facility] Dilan Acunaley Adult [address] [place] [address]- [facility] Attending Physician: Tena Nogueira NP Allergies, Adverse [...] at work 5Location History: [place] 6Admin Note: [facility] 7Admin Note: work Medications buPROPion 150 mg/24 hours (XL) oral tablet, extended release 1 tablet = 150 mg, By Mouth, Every 24 hours, # 90 tablet, 0 Refills, Maintenance, 12/19/19 3:51:00 EDT, ER Tablet Start Date: 12/19/19 Status: Ordered clomiPRAMINE 25 mg oral capsule 1 capsule = 25 mg, By Mouth, Daily at bedtime, 0 Refills, Maintenance, 12/19/19 3:52:00 EDT, Capsule Start Date: 12/19/19 Status: Ordered clonazePAM 1 mg oral tablet 1 tablet = 1 mg, By Mouth, Daily, 0 Refills, Maintenance, 12/19/19 3:52:00 EDT, Tablet Start Date: 12/19/19 Status: Ordered Enoxaparin 0.4 mL = 40 mg, Subcutaneous Injection, Daily, 0 Refills, Maintenance, 12/18/19 17:19:00 EDT, Injection Start Date: 12/18/19 Status: Ordered PARoxetine 40 mg oral tablet [...]
--- OUTSIDE RECORDS SUMMARY | 2024-03-05 11:36 | XMS_ITS | Continuity of Care Document ---
Author Organization [facility] Anand lt Address [address] [place] [address]- Care Team Providers Care Nuclear Waste Management Engineer Name Role Phone Kinsey Molina NP Primary Care Physician [phone] Encounter [facility] Date(s): 02/28/21 - 03/30/21 [facility] Adult [address] [place] [address]- Allergies, Adverse Reactions, Alerts Substance Reaction Severity [...] Comment: [09/12/2016] got at [facility] 5Admin Note: [facility] 6Admin Note: work 7Admin Note: declined [...] capsule, 0 Refills, Maintenance, 02/27/21 17:34:00EDT, Capsule, [facility]/pharmacy #[id number], Partial fill upon patient request if the [...] 1 Refills, Maintenance, 03/02/21 16:50:00 EDT, Gel, [facility]/pharmacy #[id number], Partial fill upon patient request if [...]
--- OUTSIDE RECORDS SUMMARY | 2024-03-05 11:36 | XMS_ITS | Continuity of Care Document ---
Author Organization [facility] Dilan Ricks Anand lt Address [address] [place] [address]- Care Team Providers Care Service Crew Leader Name Role Phone Not on Staff, PCP Primary Care Physician Unavail able Encounter [facility] Date(s): 05/25/21 - 06/01/21 [facility] Dilan Ricks Adult [address] [place] [address]- Encounter Diagnosis Diarrhea(Discharge Diagnosis) - 05/25/21 Attending Physician: Yonatan Cochran MD Allergies, Adverse Reactions, [...] at work 4Location History: [place] 5Admin Note: [facility] 6Admin Note: work 7Admin Note: [...] opioid drug. Start Date: 10/25/20 Status: Ordered cholestyramine 4 g/5.5 g oral powder for reconstitution = 4 Gm, By Mouth, Daily, # 30 each, 0 Refills, Maintenance, 05/25/21 7:10:00 EDT, [facility]/pharmacy #[id number], Partial fill upon patient request if the prescription is for a schedule II opioid drug., 165, cm,05/25/21 6:41:00 EDT, Height, 93.2, kg, 12/18/19 19... Start Date: 05/25/21 Stop Date: 06/24/21 Status: Ordered clonazePAM 1 mg oral tablet 1 tablet = 1 mg, By Mouth, Daily, 0 Refills, Maintenance, 12/19/19 3:52:00 EDT, Tablet Start Date: 12/19/19 Status: Ordered famotidine 20 mg oral tablet 20 mg, 1, tablet, By Mouth, 2 times a day, avoid eating and drinking for 10 minutes after each dose, # 60 tablet, Refills 1, Tot. Refills 1, Maintenance, 05/03/21 8:11:00 EDT, Route to Pharmacy Electronically, [facility]/pharmacy #[id number], Partial fill upon pat... Start Date: 05/03/21 Status: Ordered PARoxetine 40 mg oral tablet [...] Dates Health Status Clini jose Service Informant Diarrhea Discharge Diagnosis 05/25/21 Vital Signs Most recent to oldest [Reference Range]: 1 Height 165 cm (05/25/21 6:41 AM) Social History Social History Type Response Smoking Status Never smoker; Tobacc o user in household: Yes; Other: Mother smoked; entered on: 07/19/15 Sex
--- OUTSIDE RECORDS SUMMARY | 2024-03-05 11:36 | XMS_ITS | Continuity of Care Document ---
Author Organization [facility] Rambo Anand Address [address] [place] [address]- Care Team Providers Care Layout Artist Name Role Phone Mirlande CHANNEL DIRECTOR, Tena T Primary Care Physician [facility] Date(s): 03/31/20 - 04/07/20 [facility]ambo Adult [address] [place] [address]- [facility] Encounter Diagnosis Exertional chest pain(Discharge Diagnosis) - 03/31/20 Attending Physician: James Fall MD Allergies, Adverse Reactions, Alerts Substance Reaction [...] work 5Location History: [place] 6Admin Note: [facility] 7Admin Note: work Medications Abilify 10 [...] 15:18:00 EDT, Route to Pharmacy Electronically, [facility]/pharmacy #[id number], 165, cm, 01/01/20 8:34:00 EDT, [...] Effective Dates Health Status Clinical Service Informant Exertional chest pain Discharge Diagnosis 03/31/20 Social History Social History Type Response Smoking Status Never smoker; Tobacc o user in household: Yes; Other: Mother smoked; entered on: 07/19/15 Sex
--- OUTSIDE RECORDS SUMMARY | 2024-03-05 11:36 | XMS_ITS | Continuity of Care Document ---
Author Organization [facility] Anand lt Address [address] [place] [address]- Care Team Providers Care Canceling And Cutting Control Clerk Name Role Phone Kinsey Molina NP Primary Care Physician [phone] Encounter [facility] Date(s): 10/31/20 - 11/30/20 [facility] Dilan Acunaley Adult [address] [place] [address]- Allergies, Adverse Reactions, Alerts Substance Reaction Severity [...] Comment: [09/12/2016] got at work 4Location History: [facility] 5Admin Note: [facility] 6Admin Note: work 7Admin Note: [...]
--- OUTSIDE RECORDS SUMMARY | 2024-03-05 11:36 | XMS_ITS | Continuity of Care Document ---
Author Organization [facility] ter Address [address] [place] [address]- Care Team Providers Care Newspaper Stuffer Name Role Phone Mirlande RUBBER CUTTER AND SHAPE CARVER, Tena Mercado Primary Care Physician ( [phone] Encounter [facility] Date(s): 01/01/20 - 01/31/[address] [address]- [facility] Attending Physician: Not on Staff, Attending MD Admitting Physician: Not on Staff, Admitting MD Referring Physician: Not on Staff, Referring MD [...] at work 5Location History: [place] 6Admin Note: [facility] 7Admin Note: work Medications Abilify [...] 01/26/20 15:18:00 EDT, Route to Pharmacy Electronically, [facility]/pharmacy #[id number], 165, cm, 01/01/20 8:34:00 EDT, Height, [...]
--- OUTSIDE RECORDS SUMMARY | 2024-03-05 11:36 | XMS_ITS | Continuity of Care Document ---
Author Organization [facility] Address [address] [facility] [place] [address]- Care Team Providers Care Automotive Electrical Helper Name Role Phone Sameer RODGERS, July Guzman Primary Care Physician [phone] Encounter [facility] Date(s): 06/14/23 - 07/19/23 [facility] [address] [place] [address]- Attending Physician: Nicola Stroud MD Admitting Physician: Nicola Stroud MD Referring Physician: Sameer RODGERS, July Guzman [...] Comment: [09/12/2016] got at [facility] 6Admin Note: [facility] 7Admin Note: work Medications Abilify 5 [...] Team Personnel Name: Keith Patrick RN Position: [facility] RN Member Role: Primary Care Nurse Name: Shyann Salinas RN Position: S RN Member Role: Primary Care Nurse Name: Tarik Davis RN Position: [facility] ED RN W/OE and Tasks Member Role: Primary Care Nurse Name: Rito Son RN Position: S RN Member Role: Primary Care Nurse Name: Bridget Salas RN Position: [facility] RN Member Role: Primary Care Nurse Name: Sameer RODGERS, July Guzman Position: [facility] PCO Associate Professional Member Role: PCP Address: Address: [address] [place] [address]- Name: Marah Oscar RN Position: [facility] AMB Nurse Member Role: Primary Care Nurse Name: Jaclyn Terrazas RN Position: [facility] ED RN W/OE and Tasks Member Role: Primary Care Nurse Name: Bella Hall RN Position: [facility] RN Member Role: Primary Care Nurse Care Team Related Persons Name: PRAVEEN FRANCOIS Address: home [address] [place] [address]
--- OUTSIDE RECORDS SUMMARY | 2024-03-05 11:36 | XMS_ITS | Continuity of Care Document ---
Author Organization [facility] Dlian Ricks Anand lt Address [address] [place] [address]- Care Team Providers Care Roll Over Loader Name Role Phone Not on Staff, PCP Primary Care Physician Unavail able [facility]counter [facility] Date(s): 05/01/21 - 05/31/21 [facility] Dilan Ricks Adult [address] [place] [address]- Allergies, Adverse Reactions, Alerts Substance Reaction Severity [...] Comment: [09/12/2016] got at work 4Location History: [facility] 5Admin Note: [facility] 6Admin Note: work 7Admin [...] each, 0 Refills, Maintenance, 05/25/21 7:10:00 EDT, [facility]/pharmacy #[id number], Partial fill upon patient request [...] 05/03/21 8:11:00 EDT, Route to Pharmacy Electronically, [facility]/pharmacy #[id number], Partial fill upon pat... Start Date: 05/03/21 [...]
--- OUTSIDE RECORDS SUMMARY | 2024-03-05 11:36 | XMS_ITS | Continuity of Care Document ---
Author Organization [facility] Mangum Anand Address [address] [place] [address]- Care Team Providers Care Drying Oven Tender Name Role Phone Sameer RODGERS, July Guzman Primary Care Physician [facility]counter [facility] Date(s): 11/15/22 - 12/15/22 [facility] Adult [address] [place] [address]- Allergies, Adverse Reactions, Alerts Substance Reaction Severity [...] at work 5Location History: [place] 6Admin Note: [facility] 7Admin Note: work Medications Abilify 5 mg oral tablet 2.5 mg, 0.5, tablet, By Mouth, Daily, Refills 0, Maintenance, [...] Date: 12/19/19 Status: Ordered Problem List Condition Confirmation Course [...] Active Mood disorder Confirmed Active Obese class II Confirmed Active Obesity Confirmed Active Osteopenia 3, [...] Team Personnel Name: Keith Patrick RN Position: [facility] RN Member Role: Primary Care Nurse Name: Shyann Salinas RN Position: [facility] RN Member Role: Primary Care Nurse Name: Tarik Davis RN Position: [facility] ED RN W/OE and Tasks Member Role: Primary Care Nurse Name: Rito Son RN Position: [facility] RN Member Role: Primary Care Nurse Name: Bridget Salas RN Position: S RN Member Role: Primary Care Nurse Name: July Estrella NP Position: [facility] PCO Associate Professional Member Role: PCP Address: Address: [address] [place] [address]- Name: Marah Oscar RN Position: S RN Member Role: Primary Care Nurse Name: Krupa Ventura RN Position: S RN Member Role: Primary Care Nurse Name: Jaclyn Terrazas RN Position: S RN Member Role: Primary Care Nurse Name: Bella Hall RN Position: S RN Member Role: Primary Care Nurse Care Team Related Persons Name: PRAVEEN FRANCOIS Address: [address] [place] [address]
--- OUTSIDE RECORDS SUMMARY | 2024-03-05 11:36 | XMS_ITS | Continuity of Care Document ---
Author Organization [facility] Anand lt Address [address] [place] [address]- Care Team Providers Care Turn Down Man Name Role Phone Sameer RODGERS, July Guzman Primary Care Physician [phone] Encounter [facility] Date(s): 05/13/23 - 06/12/23 [facility] Adult [address] [place] [address]- Allergies, Adverse Reactions, Alerts Substance Reaction Severity [...] [facility] 7Admin Note: work Medications Abilify [...] Team Personnel Name: Keith Patrick RN Position: [facility] RN Member Role: Primary Care Nurse Name: Shyann Salinas RN Position: [facility] RN Member Role: Primary Care Nurse Name: Tarik Davis RN Position: [facility] ED RN W/OE and Tasks Member Role: Primary Care Nurse Name: Rito Son RN Position: [facility] RN Member Role: Primary Care Nurse Name: Bridget Salas RN Position: [facility] RN Member Role: Primary Care Nurse Name: July Estrella NP Position: [facility] PCO Associate Professional Member Role: PCP Address: Address: [address] [place] [address]- [place] Name: Marah Oscar RN Position: [facility] AMB Nurse Member Role: Primary Care Nurse Name: Krupa Ventura RN Position: [facility] RN Member Role: Primary Care Nurse Name: Jaclyn Terrazas RN Position: [facility] ED RN W/OE and Tasks Member Role: Primary Care Nurse Name: Bella Hall RN Position: [facility] RN Member Role: Primary Care Nurse Care Team Related Persons Name: PRAVEEN FRANCOIS Address: [address] [place] [address]
--- OUTSIDE RECORDS SUMMARY | 2024-03-05 11:36 | XMS_ITS | Continuity of Care Document ---
Author Organization [facility] Rambo Anand lt Address [address] [place] [address]- Care Team Providers Care Computing Machine Operator Name Role Phone Sameer RODGERS, July Guzman Primary Care Physician Encounter [facility] Date(s): 01/22/24 - 02/21/24 [facility] Dilan Acunaley Adult [address] [place] [address]- Attending Physician: Admsalvatore, Eduardo Admitting Physician: Admtr, Eduardo Referring Physician: Admtr, Ar8 Allergies, Adverse Reactions, [...] Comment: [09/12/2016] got at work 5Location History: [facility] 6Admin Note: [facility] 7Admin Note: work Medications Abilify 5 [...] tablet, 0 Refills, Maintenance, 02/18/24 11:38:00 EDT, [facility] #[id number], 165, cm, 01/22/24 11:09:00 EDT, Height Start [...] Nurse Name: July Estrella NP Position: [facility] PCO Associate Professional Member Role: PCP Address: Address: [address] [place] [address]- Name: Marah Oscar RN Position: [facility] AMB Nurse Member Role: Primary Care Nurse Name: Jaclyn Terrazas RN Position: [facility] ED RN W/OE and Tasks Member Role: Primary Care Nurse Name: Bella Hall RN Position: [facility] RN Member Role: Primary Care Nurse Care Team Related Persons Name: PRAVEEN FRANCOIS Address: home [address] [place] [address]
--- OUTSIDE RECORDS SUMMARY | 2024-03-05 11:36 | XMS_ITS | Continuity of Care Document ---
Author Organization [facility] Anand Address [address] [place] [address]- Care Team Providers Care Screedman/Laborer Name Role Phone Sameer RODGERS, July Guzman Primary Care Physician [phone] Encounter [facility] Date(s): 10/15/22 - 11/14/22 [facility] Dilan Acunaley Adult [address] [place] [address]- Allergies, Adverse Reactions, Alerts Substance Reaction Severity [...] at work 5Location History: [place] 6Admin Note: [facility] [...] Team Personnel Name: Keith Patrick RN Position: [facility] RN Member Role: Primary Care Nurse Name: Shyann Salinas RN Position: [facility] RN Member Role: Primary Care Nurse Name: Tarik Davis RN Position: [facility] ED RN W/OE and Tasks Member Role: Primary Care Nurse Name: Rito Son RN Position: [facility] RN Member Role: Primary Care Nurse Name: Bridget Salas RN Position: S RN Member Role: Primary Care Nurse Name: July Estrella NP Position: [facility] PCO Associate Professional Member Role: PCP Address: Address: [address] [place] [address]- Name: Marah Oscar RN Position: S RN Member Role: Primary Care Nurse Name: Krupa Ventura RN Position: S RN Member Role: Primary Care Nurse Name: Jaclyn Terrazas RN Position: S RN Member Role: Primary Care Nurse Name: Mickey Aaron RN Position: [facility] ED RN W/OE and Tasks Member Role: Primary Care Nurse Name: Bella Hall RN Position: S RN Member Role: Primary Care Nurse Care Team Related Persons Name: PRAVEEN FRANCOIS Address: [address] [place] [address]
--- OUTSIDE RECORDS SUMMARY | 2024-03-05 11:37 | XMS_ITS | Continuity of Care Document ---
Author Organization [facility] [place] Anand lt Address [address] [place] [address]- Care Team Providers Care Psychology Tech Name Role Phone Sameer RODGERS, July Guzman Primary Care Physician [place] [facility] [place]20/22 - 08/27/22 [facility] Dilan Acunaley Adult [address] [place] [address]- Encounter Diagnosis Medicare annual wellness visit, subsequent(Discharge Diagnosis) - 08/20/22 Anxiety(Discharge Diagnosis) - 08/20/22 Depression, major, recurrent(Discharge Diagnosis) - 08/20/22 Attending Physician: July Estrella NP Referring Physician: Dimas QUILES, Yonatan Kinney Allergies, Adverse Reactions, Alerts Substance Reaction Severity [...] Given 1Admin Note: declined 2Result Comment: [10/08/2018] denisey 3Result Comment: [07/22/2017] kimberly 4Result Comment: [09/12/2016] got at work 5Location History: [facility] 6Admin Note: [facility] 7Admin Note: work Medications Abilify [...] Medicare annual wellness visit, subsequent Discharge Diagnosis 08/20/22 Anxiety Discharge Diagnosis 08/20/22 Depression, major, recurrent Discharge Diagnosis 08/20/22 Vital Signs Most recent to oldest [Reference Range]: 1 Height 165 cm (08/20/22 7:42 AM) Weight 97.7 kg (08/20/22 7:42 AM) Oxygen Saturation [94-100 %] 98 % (08/20/22 7:42 AM) Pulse Rate [55-90 bpm] 85 bpm (08/20/22 7:42 AM) Body Mass Index [18.5-24.99 kg/m2] 35.89 kg/m2 *>HHI* (08/20/22 7:42 AM) Blood Pressure [90-138/55-84 mm Hg] 118/ 81mm Hg (08/20/22 7:42 AM) Blood pressure sites Arm, left (08/20/22 7:42 AM) Weight Obtained Via Standing scale (08/20/22 7:42 AM) Social History Social History Type Response Smoking Status Never smoker; Tobacc o user in household: Yes; Other: Mother smoked; entered on: 07/19/15 Sex Note * Monique: PERFORM, SIGN, VERIFY Event Display: Patient Education/Instruction Authored Date: [id number] [facility] *[facility] [place] Clinical Summary Name NED FRANCOIS Age 66 Years 1955 PCP Sameer RODGERS, July Guzman PCP Visit Date 08/20/2022 07:37:00 Additional Instructions: Scheduled Appointments?? Future Appointments ?No Future Appointments Scheduled Follow-Up Instructions ?? With: Address: When: Follow up, 1 Year for Physical Comments: AWV Diagnosis Encounter for general adult medical examination without abnormal findings; Anxiety disorder, unspecified; Major depressive disorder, recurrent, unspecified Medications: Please continue your medications until treatment is completed or stopped by your provider. Discuss any questions related to medications with your provider. Medications to Continue Taking That Have Changed These medications were not printed or sent to your pharmacy - Aripiprazole (Abilify 5 mg oral tablet) 0.5 tab(s) Oral Daily. Next Dose: Medications to Continue with No Changes These medications were not printed or sent to your pharmacy ClomiPRAMINE (Anafranil 50 mg oral capsule) 1 capsule Oral Daily at Bedtime. Next Dose: Clonazepam (clonazePAM 1 mg oral tablet) 1 tab(s) Oral Daily. Next Dose: Lorazepam (Ativan 0.5 mg [...] tablet) 1 tab(s) Oral Daily. Next Dose: Allergy Info:?? Lyrica; Sudafed; shellfish Medications Given This Visit Future Orders ?No future orders Vital Signs Height 165 cm Weight 97.7 kg BMI 35.89 kg/m2 Blood Pressure 118 mm Hg/81 mm Hg Temperature Pulse Rate 85 bpm Respiratory Rate 02 Sat Mode of Delivery 98 %/ You can now view a summary of your hospital visit from the comfort of your home through a free online portal called [employer]. [employer] is a website that allows you to securely view your medical information including discharge summary, medications and follow-up visits. ??You can alsosend a secure electronic message to your doctor???s office to request appointments, renew medications or just ask a question. You can enroll at [email or web address] or register during your next [...] primary care provider, you may find a [facility] provider by calling [facility] [facility] at [phone]. For information about the plan of care [...] Team Personnel Name: Keith Patrick RN Position: [facility] RN Member Role: Primary Care Nurse Name: Shyann Salinas RN Position: [facility] RN Member Role: Primary Care Nurse Name: Tarik Davis RN Position: [facility] ED RN W/OE and Tasks Member Role: Primary Care Nurse Name: Rito Son RN Position: [facility] RN Member Role: Primary Care Nurse Name: Bridget Salas RN Position: [facility] RN Member Role: Primary Care Nurse Name: July Estrella NP Position: [facility] PCO Associate Professional Member Role: PCP Address: Address: [address] [place] [address] Name: Krupa Ventura RN Position: [facility] RN Member Role: Primary Care Nurse Name: Mickey Aaron RN Position: [facility] ED RN W/OE and Tasks Member Role: Primary Care Nurse Name: Bella Hall RN Position: [facility] RN Member Role: Primary Care Nurse Name: Mari Dimas RN Position: [facility] RN Member Role: Primary Care Nurse Care Team Related Persons Name: PRAVEEN FRANCOIS Address: [address] [address]
--- OUTSIDE RECORDS SUMMARY | 2024-03-05 11:37 | XMS_ITS | Continuity of Care Document ---
Author Organization [facility] Address [address] [facility] [place] [address]- Care Team Providers Care Department Secretary Name Role Phone Sameer RODGERS, July Guzman Primary Care Physician [phone] Encounter 06/28/23 - 08/08/23 [facility] [address], [address] [place] [address]- Attending Physician: Sameer RODGERS, July Guzman Admitting [...] Comment: [09/12/2016] got at work 5Location History: [facility] 6Admin Note: [facility] [...] Team Personnel Name: Keith Patrick RN Position: [facility] RN Member Role: Primary Care Nurse Name: Shyann Salinas RN Position: [facility] RN Member Role: Primary Care Nurse Name: Tarik Davis RN Position: [facility] ED RN W/OE and Tasks Member Role: Primary Care Nurse Name: Bridget Salas RN Position: [facility] RN Member Role: Primary Care Nurse Name: July Estrella NP Position: [facility] PCO Associate Professional Member Role: PCP Address: Address: [address] [place] [address]- Name: Dayne RNMarah Position: [facility] AMB Nurse Member Role: Primary Care Nurse Name: Jaclyn Terrazas RN Position: [facility] ED RN W/OE and Tasks Member Role: Primary Care Nurse Name: Bella Hall RN Position: [facility] RN Member Role: Primary Care Nurse Care Team Related Persons Name: PRAVEEN FRANCOIS Address: home [address] [place] [address]
--- OUTSIDE RECORDS SUMMARY | 2024-03-05 11:37 | XMS_ITS | Continuity of Care Document ---
Author Organization [facility] [place]and Address [address] [place] [address]- Care Team Providers Care Coal Loader Name Role Phone Sameer RODGERS, July Guzman Primary Care Physician Encounter [facility] Date(s): 03/25/23 - 04/24/23 [facility] Dilan Acunaley Adult [address] [place] [address]- Allergies, Adverse Reactions, Alerts Substance Reaction Severity [...] at work 5Location History: [place] 6Admin Note: [facility] 7Admin [...] Team Personnel Name: Keith Patrick RN Position: [facility] RN Member Role: Primary Care Nurse Name: Shyann Salinas RN Position: [facility] RN Member Role: Primary Care Nurse Name: Tarik Davis RN Position: [facility] ED RN W/OE and Tasks Member Role: Primary Care Nurse Name: Rito Son RN Position: [facility] RN Member Role: Primary Care Nurse Name: Bridget Salas RN Position: [facility] RN Member Role: Primary Care Nurse Name: July Estrella NP Position: [facility] PCO Associate Professional Member Role: PCP Address: Address: [address] [place] [address], [place] [address]- [place] Name: Dayne RN, Marah Saldana Position: [facility] AMB Nurse Member Role: Primary Care Nurse Name: Krupa Ventura RN Position: [facility] RN Member Role: Primary Care Nurse Name: Jaclyn Terrazas RN Position: [facility] ED RN W/OE and Tasks Member Role: Primary Care Nurse Name: Bella Hall RN Position: [facility] RN Member Role: Primary Care Nurse Care Team Related Persons Name: PRAVEEN FRANCOIS Address: [address] [address]
--- OUTSIDE RECORDS SUMMARY | 2024-03-05 11:37 | XMS_ITS | Continuity of Care Document ---
Author Organization [facility] Anand Address [address] [place] [address]- Care Team Providers Care Appeals Court Associate Justice Name Role Phone Sameer RODGERS, July Guzman Primary Care Physician Encounter [facility] [place] Date(s): 06/07/23 - 07/07/23 [facility] Adult [address] [place] [address]- Attending Physician: AdmEduardo chase Admitting Physician: AdmtrEduardo [...] Comment: [09/12/2016] got at work 5Location History: [facility] 6Admin Note: [facility] em[facility]oyer 7Admin Note: work Medications Abilify [...] study * Event Display: EKG Authored Date: [id number] Laboratory * Event Display: Non BH Lab [...] Team Personnel Name: Keith Patrick RN Position: [facility] RN Member Role: Primary Care Nurse Name: Shyann Salinas RN Position: [facility] RN Member Role: Primary Care Nurse Name: Tarik Davis RN Position: [facility] ED RN W/OE and Tasks Member Role: Primary Care Nurse Name: Rito Son RN Position: [facility] RN Member Role: Primary Care Nurse Name: Bridget Salas RN Position: [facility] RN Member Role: Primary Care Nurse Name: July Estrella NP Position: [facility] PCO Associate Professional Member Role: PCP Address: Address: [address] [place] [address]- Name: Marah Oscar RN Position: [facility] AMB Nurse Member Role: Primary Care Nurse Name: Jaclyn Terrazas RN Position: [facility] ED RN W/OE and Tasks Member Role: Primary Care Nurse Name: Bella Hall RN Position: [facility] RN Member Role: Primary Care Nurse Care Team Related Persons Name: PRISCILA PRAVEEN Address: home [address] [place] [address]
--- OUTSIDE RECORDS SUMMARY | 2024-03-05 11:37 | XMS_ITS | Continuity of Care Document ---
Author Organization [facility] [place] Anand lt Address [address] [place] [address]- Care Team Providers Care Weight Analyst Name Role Phone Sameer RODGERS, July Guzman Primary Care Physician [phone] [place] [facility] [place] 08/22/23 - 09/21/23 [facility] Dilan Bessemer Adult [address] [place] [address]- Attending Physician: Admsalvatore, Eduardo Admitting Physician: AdmtrEduardo Referring Physician: Admtr, [id number] [...] [09/12/2016] got at work 5Location History: [facility] 6Admin Note: [facility] 7Admin Note: work Medications Abilify [...] Team Personnel Name: Keith Patrick RN Position: [facility] RN Member Role: Primary Care Nurse Name: Shyann Salinas RN Position: [facility] RN Member Role: Primary Care Nurse Name: Tarik Davis RN Position: [facility] ED RN W/OE and Tasks Member Role: Primary Care Nurse Name: Bridget Salas RN Position: [facility] RN Member Role: Primary Care Nurse Name: July Estrella NP Position: [facility] PCO Associate Professional Member Role: PCP Address: Address: [address] [place] [address]- Name: Marah Oscar RN Position: [facility] AMB Nurse Member Role: Primary Care Nurse Name: Jaclyn Terrazas RN Position: [facility] ED RN W/OE and Tasks Member Role: Primary Care Nurse Name: Bella Hall RN Position: [facility] RN Member Role: Primary Care Nurse Care Team Related Persons Name: PRAVEEN FRANCOIS Address: home [address] [place] [address]
--- OUTSIDE RECORDS SUMMARY | 2024-03-05 11:37 | XMS_ITS | Continuity of Care Document ---
Author Organization [facility] Rambo Anand Address [address] [place] [address]- Care Team Providers Care Grader Meat Name Role Phone Sameer RODGERS, July Guzman Primary Care Physician [facility] Date(s): 07/03/23 - 08/02/23 [facility] Dilan Acunaley Adult [address] [place] [address]- Allergies, Adverse Reactions, Alerts Substance Reaction Severity [...] work 5Location History: [place] 6Admin Note: [facility] [...] Team Personnel Name: Keith Patrick RN Position: [facility] RN Member Role: Primary Care Nurse Name: Shyann Salinas RN Position: [facility] RN Member Role: Primary Care Nurse Name: Tarik Davis RN Position: [facility] ED RN W/OE and Tasks Member Role: Primary Care Nurse Name: Bridget Salas RN Position: [facility] RN Member Role: Primary Care Nurse Name: July Estrella NP Position: [facility] PCO Associate Professional Member Role: PCP Address: Address: [address] [place] [address]- Name: Marah Oscar RN Position: [facility] AMB Nurse Member Role: Primary Care Nurse Name: Jaclyn Terrazas RN Position: [facility] ED RN W/OE and Tasks Member Role: Primary Care Nurse Name: Bella Hall RN Position: [facility] RN Member Role: Primary Care Nurse Care Team Related Persons Name: PRAVEEN FRANCOIS Address: [address] [place] [address]
--- OUTSIDE RECORDS SUMMARY | 2024-03-05 11:37 | XMS_ITS | Continuity of Care Document ---
Author Organization [facility] [place] Anand lt Address [address] [place] [address]- Care Team Providers Care Pre Press Operator Name Role Phone Sameer RODGERS, July Guzman Primary Care Physician [facility]counter [facility] Date(s): 01/22/24 - 01/29/24 [facility] Adult [address] [place] [address]- Encounter Diagnosis Hip pain(Discharge Diagnosis) - 01/22/24 Attending Physician: Not on Staff, Attending MD [...] got at work 5Location History: [facility] 6Admin Note: [facility] em[facility] 7Admin Note: work Medications Abilify 5 [...] Ordered naproxen 500 mg oral tablet 1 tablet = 500 mg, By Mouth, 2 times a day, for 14 days, # 28 tablet, 0 Refills, Acute 02/05/24 11:21:00 EDT, 01/22/24 11:21:00 EDT, [facility] #[id number], Partial fill upon patient request if the prescription is for a schedule II opioid drug.,... Start Date: 01/22/24 Stop Date: 02/05/24 Status: Ordered PARoxetine 40 mg oral tablet [...] Dates Health Status Clini jose Service Informant Hip pain Discharge Diagnosis 01/22/24 Vital Signs Most recent to oldest [Reference Range]: 1 Height 165 cm (01/22/24 11:09 AM) Weight 95.4 kg (01/22/24 11:09 AM) Oxygen Saturation [94-100 %] 100 % (01/22/24 11:09 AM) Pulse Rate [55-90 bpm] 76 bpm (01/22/24 11:09 AM) Body Mass Index [18.5-24.99 kg/m2] 35.04 kg/m2 *>HHI* (01/22/24 11:09 AM) Blood Pressure [90-138/55-84 mm Hg] 122/ 76mm Hg (01/22/24 11:09 AM) Blood pressure sites Arm, right (01/22/24 11:09 AM) Weight Obtained Via Standing scale (01/22/24 11:09 AM) Social History Social History Type Response Smoking Status Never smoker; Tobacc o user in household: Yes; Other: Mother smoked; entered on: 07/19/15 Sex Note * Monique White: PERFORM, SIGN, VERIFY Event Display: Patient Education/Instruction Authored Date: [id number] [facility] *[facility] Clinical Summary Name NED FRANCOIS Age 68 Years 1955 PCP Sameer RODGERS, July [facility]zman [id number] Visit Date 01/22/2024 11:02:00 Additional Instructions: Scheduled Appointments?? Future Appointments ?No Future Appointments Scheduled Follow-Up Instructions ?? With: Address: When: As Needed With: Address: When: Sameer RODGERS, July Guzman [address] [place] [address] Diagnosis Pain in unspecified hip Medications: Please continue your medications until treatment is completed or stopped by your provider. Discuss any questions related to medications with your provider. New Medications [facility] #[id number], [address] [place], [place] [id number], [phone] Naproxen (naproxen 500 mg oral tablet) 1 tab(s) Oral twice a day for 14 Days. Refills: 0. Next Dose: Medications to Continue with No Changes These medications were not printed or sent to your pharmacy Albuterol (albuterol CFC free 90 mcg/inh inhalation aerosol) 2 puff(s) Inhalation every 6 hours. Next Dose: Aripiprazole (Abilify 5 mg oral tablet) 1 tab(s) Oral Daily. Next Dose: ClomiPRAMINE (Anafranil 50 mg oral capsule) 1 capsule Oral Daily at Bedtime. Next Dose: fluticasone/umeclidinium/vilanterol (Trelegy Ellipta 200 mcg-62.5 mcg-25 mcg/inh inhalation powder)1 puff(s) Inhalation Daily. Next Dose: Lorazepam (Ativan 0.5 mg oral tablet) 1 tab(s) Oral. Next Dose: Omeprazole (PriLOSEC OTC 20 mg oral delayed release tablet) 1 tab(s) Oral Daily. Next Dose: Paroxetine (PARoxetine 40 mg oral tablet) 1 tab(s) Oral Daily. Next Dose: Quetiapine (SEROquel 300 mg oral tablet) 1 tab(s) Oral Daily at Bedtime. Next Dose: Allergy Info:?? Lyrica; Sudafed; shellfish Medications Given This Visit Future Orders ?No future orders Future Orders ?No future orders Vital Signs Height 165 cm Weight 95.4 kg BMI 35.04 kg/m2 Blood Pressure 122 mm Hg/76 mm Hg Temperature Pulse Rate 76 bpm Respiratory Rate 02 Sat Mode of Delivery 100 %/ You can now view a summary of your hospital visit from the comfort of your home through a free online portal called [employer]. [employer] is a website that allows you to securely view your medical information including discharge summary, medications and follow-up visits. ??You can alsosend a secure electronic message to your doctor???s office to request appointments, renew medications or just ask a question. You can enroll at [email or web address] or register during your next office [...] primary care provider, you may find a [facility] provider by calling [facility] [facility] at [phone]. [facility], in keeping with [facility] guidance, no longer requires face masks for [...] Care Nurse Name: Bridget Salas RN Position: [facility] RN Member Role: Primary Care Nurse Name: Sameer RODGERS, July Guzman Position: [facility] PCO Associate Professional Member Role: PCP Address: Address: [address] [place] [address]- Name: Marah Oscar RN Position: [facility] AMB Nurse Member Role: Primary Care Nurse Name: Jaclyn Terrazas RN Position: [facility] ED RN W/OE and Tasks Member Role: Primary Care Nurse Name: Bella Hall RN Position: [facility] RN Member Role: Primary Care Nurse Care Team Related Persons Name: PRAVEEN FRANCOIS Address: [address] [place] [address]
--- OUTSIDE RECORDS SUMMARY | 2024-03-05 11:38 | XMS_ITS | Continuity of Care Document ---
Author Organization [facility] Dilan Ricks Anand Address [address] [place] [address]- Care Team Providers Care Kettle Loader Name Role Phone Sameer RODGERS, July Guzman Primary Care Physician [phone] [facility]counter [facility] Date(s): 07/13/21 - 08/12/21 [facility] Dilan Ricks Adult [address] [place] [address]- Allergies, Adverse Reactions, Alerts Substance Reaction Severity [...] at work 4Location History: [place] 5Admin Note: [facility] em[facility]oyer 6Admin Note: work 7Admin Note: [...] each, 0 Refills, Maintenance, 05/25/21 7:10:00 EDT, [facility]/pharmacy #[id number], Partial fill upon patient request if [...] 05/03/21 8:11:00 EDT, Route to Pharmacy Electronically, [facility]/pharmacy #[id number], Partial fill upon pat... Start Date: [...]
--- OUTSIDE RECORDS SUMMARY | 2024-03-05 11:38 | XMS_ITS | Continuity of Care Document ---
Author Organization [facility] Address [address] [place] [address]- Care Team Providers Care Geotechnical Engineering Technician Name Role Phone Not on Staff, PCP Primary Care Physician Unavail able Encounter [facility] Date(s): 06/09/21 - 07/09/[address] [address] Attending Physician: Eduardo Padilla Admitting Physician: Admtr, Eduardo Referring Physician: Admtr, [...] Comment: [09/12/2016] got at work 4Location History: [facility] 5Admin Note: [facility] emloyer 6Admin Note: work 7Admin Note: declined [...] each, 0 Refills, Maintenance, 05/25/21 7:10:00 EDT, [facility]/pharmacy #[id number], Partial fill upon patient request [...] 05/03/21 8:11:00 EDT, Route to Pharmacy Electronically, [facility]/pharmacy #[id number], Partial fill upon pat... Start [...] allergies(Confirmed) Active Fatty liver(Confirmed) 7 Active 1abnormal muscle;bita Gonzalezz 2sono january 2016 3right T 5 dermatome 4Drs Vahe.Gm addressing 5corecting VIT D 6neg 1.1 fem neck 7dr vahe,gastro addressing;per sonogram january 2016 Social History Social History Type Response Smoking Status Never smoker; Tobacc o user in household: Yes; Other: Mother smoked; entered on: 07/19/15 Sex
--- OUTSIDE RECORDS SUMMARY | 2024-03-05 11:38 | XMS_ITS | Continuity of Care Document ---
Author Organization [facility] Anand Address [address] [place] [address]- Care Team Providers Care Computer Builder Name Role Phone Sameer RODGERS, July Guzman Primary Care Physician [place] [facility] [place] 04[place]/23 [facility] Adult [address] [place] [address]- Encounter Diagnosis URI, acute(Discharge Diagnosis) - 03/29/23 Attending Physician: Rudy Franz Referring Physician: Sameer RODGERS, July Guzman Allergies, [...] Comment: [09/12/2016] got at work 5Location History: [facility] 6Admin Note: [facility] 7Admin Note: work Medications [...] Dates Health Status Clini jose Service Informant URI, acute Discharge Diagnosis 03/29/23 Vital Signs Most recent to oldest [Reference Range]: 1 Height 165 cm (03/29/23 1:12 PM) Weight 97.1 kg (03/29/23 1:12 PM) Oxygen Saturation [94-100 %] 98 % (03/29/23 1:12 PM) Pulse Rate [55-90 bpm] 94 bpm *H* (03/29/23 1:12 PM) Body Mass Index [18.5-24.99 kg/m2] 35.67 kg/m2 *>HHI* (03/29/23 1:12 PM) Blood Pressure [90-138/55-84 mm Hg] 114/ 76mm Hg (03/29/23 1:12 PM) Temperature [96.8-100.4 DegF] 97.3 DegF (03/29/23 1:12 PM) Mode of Delivery (Oxygen) Room air (03/29/23 1:12 PM) Blood pressure sites Arm, left (03/29/23 1:12 PM) Temperature Route Temporal (03/29/23 1:12 PM) Weight Obtained Via Standing scale (03/29/23 1:12 PM) Social History Social History Type Response Smoking Status Never smoker; Tobacc o user in household: Yes; Other: Mother smoked; entered on: 07/19/15 Sex Patient Care team information Care Team Personnel Name: Keith Patrick RN Position: [facility] RN Member Role: Primary Care Nurse Name: Shyann Salinas RN Position: S RN Member Role: Primary Care Nurse Name: Tarik Davis RN Position: [facility] ED RN W/OE and Tasks Member Role: Primary Care Nurse Name: Rito Son RN Position: [facility] RN Member Role: Primary Care Nurse Name: Bridget Salas RN Position: S RN Member Role: Primary Care Nurse Name: July Estrella NP Position: [facility] PCO Associate Professional Member Role: PCP Address: Address: [address] [place] [address]- Name: Marah Oscar RN Position: [facility] AMB Nurse Member Role: Primary Care Nurse Name: Krupa Ventura RN Position: S RN Member Role: Primary Care Nurse Name: Jaclyn Terrazas RN Position: [facility] JEMMA RN W/OE and Tasks Member Role: Primary Care Nurse Name: Bella Hall RN Position: S RN Member Role: Primary Care Nurse Care Team Related Persons Name: PRAVEEN FRANCOIS Address: [address] [place] [address]
--- OUTSIDE RECORDS SUMMARY | 2024-03-05 11:38 | XMS_ITS | Continuity of Care Document ---
Author Organization [facility] Rambo Anand Address [address] [place] [address]- Care Team Providers Care Psychiatry Teacher Name Role Phone Sameer RODGERS, July Guzman Primary Care Physician [phone] [facility]counter [facility] Date(s): 05/29/22 - 06/28/22 [facility] Adult [address] [place] [address]- Allergies, Adverse Reactions, Alerts Substance Reaction Severity [...] at work 5Location History: [place] 6Admin Note: [place] 7Admin Note: work Medications Anafranil 50 [...] Confirmed Active Osteopenia 3, 4 Confirmed Active Depression, major, recurrent Confirmed Active Seasonal allergies Confirmed Active Fatty liver 5 Confirmed Active 1abnormal muscle;seees Dr Presley 2sono january 2016 3corecting VIT D 4neg 1.1 fem neck 5dr vahe,gastro addressing;per sonogram january 2016 Social History Social History Type Response Smoking Status Never smoker; Tobacc o user in household: Yes; Other: Mother smoked; entered on: 07/19/15 Sex Patient Care team information Personnel Name: Sameer RODGERS, July Guzman Address: Address: [address] [place] [id number]
--- OUTSIDE RECORDS SUMMARY | 2024-03-05 11:38 | XMS_ITS | Continuity of Care Document ---
Author Organization [facility] Rambo Anand lt Address [address] [place] [address]- Care Team Providers Care Investment Accountant Name Role Phone Sameer RODGERS, July Guzman Primary Care Physician [facility] Date(s): 04/03/22 - 05/05/22 [facility] Adult [address] [place] [address]- Attending Physician: Not on Staff, Attending MD [...] 5Location History: [facility] 6Admin Note: [facility] [...]
--- OUTSIDE RECORDS SUMMARY | 2024-03-05 11:38 | XMS_ITS | Continuity of Care Document ---
Author Organization [facility] Address [address] [place] [address]- Care Team Providers Care Pantry Goods Worker Name Role Phone Sameer RODGERS, July Guzman Primary Care Physician [phone] [place] [facility] [place] 06/19/23 - 07/19/23 [facility] [address] [place] [address]- Attending Physician: Eduardo Padilla Admitting Physician: AdmtrEduardo Referring Physician: Admtr, Ar8 [...] Comment: [09/12/2016] got at work 5Location History: [facility] 6Admin Note: [facility] [...] Team Personnel Name: Keith Patrick RN Position: [facility] RN Member Role: Primary Care Nurse Name: Shyann Salinas RN Position: [facility] RN Member Role: Primary Care Nurse Name: Tarik Davis RN Position: [facility] ED RN W/OE and Tasks Member Role: Primary Care Nurse Name: Rito Son RN Position: S RN Member Role: Primary Care Nurse Name: Bridget Salas RN Position: [facility] RN Member Role: Primary Care Nurse Name: Sameer RODGERS, July Guzman Position: [facility] PCO Associate Professional Member Role: PCP Address: Address: [address] [place] [address]- Name: Marah Oscar RN Position: [facility] AMB Nurse Member Role: Primary Care Nurse Name: Jaclyn Terrazas RN Position: [facility] ED RN W/OE and Tasks Member Role: Primary Care Nurse Name: Bella Hall RN Position: [facility] RN Member Role: Primary Care Nurse Care Team Related Persons Name: PRAVEEN FRANCOIS Address: [address] [place] [address]
--- OUTSIDE RECORDS SUMMARY | 2024-03-05 11:38 | XMS_ITS | Continuity of Care Document ---
Author Organization [facility] Dilan Ricks Anand lt Address [address] [place] [address]- Care Team Providers Care Automobile Salesman Name Role Phone Not on Staff, PCP Primary Care Physician Unavail able [facility]counter [facility] Date(s): 05/25/21 - 06/24/21 [facility] Dilan Ricks Adult [address] [place] [address]- Attending Physician: Eduardo Padilla Admitting Physician: AdmtrEduardo Referring Physician: Admtr, Eduardo Allergies, Adverse Reactions, Alerts Substance Reaction Severity [...] at work 4Location History: [place] 5Admin Note: [facility] 6Admin Note: work 7Admin [...] each, 0 Refills, Maintenance, 05/25/21 7:10:00 EDT, [facility]/pharmacy #[id number], Partial fill upon patient request [...] 05/03/21 8:11:00 EDT, Route to Pharmacy Electronically, [facility]/pharmacy #[id number], Partial fill upon pat... Start [...] neck 7dr vahe,gastro addressing;per sonogram january 2016 Procedures Procedure [...]
--- OUTSIDE RECORDS SUMMARY | 2024-03-05 11:38 | XMS_ITS | Continuity of Care Document ---
Author Organization [facility] Anand Address [address] [place] [address]- Care Team Providers Care Ruby On Rails Web Developer Name Role Phone Sameer RODGERS, July Guzman Primary Care Physician [phone] [place] [facility] [place] - 05/06/22 [facility] Adult [address] [place] [address]- Attending Physician: AdmEduardo chase Admitting Physician: AdmtrEduardo [...] Comment: [09/12/2016] got at work 5Location History: [facility] 6Admin Note: [facility] 7Admin Note: work Medications Anafranil [...]
--- OUTSIDE RECORDS SUMMARY | 2024-03-05 11:38 | XMS_ITS | Continuity of Care Document ---
Author Organization [facility] Rambo Anand Address [address] [place] [address]- Care Team Providers Care Handbag Frames Inspector Name Role Phone Sameer RODGERS, July Guzman Primary Care Physician [phone] [place] [facility] [place] 11/20/23 - 11/27/23 [facility] Adult [address] [place] [address]- Encounter Diagnosis Subarachnoid hemorrhage(Discharge Diagnosis) - 11/22/23 Depression, major, recurrent(Discharge Diagnosis) - 11/22/23 Anxiety(Discharge Diagnosis) - 11/22/23 Attending Physician: Not on Staff, Attending MD [...] Given 1Admin Note: declined 2Result Comment: [10/08/2018] denisevijay 3Result Comment: [07/22/2017] [place] 4Result Comment: [09/12/2016] got at work 5Location History: [facility] 6Admin Note: [facility] 7Admin Note: work Medications [...] Effective Dates Health Status Clinical Service Informant Subarachnoid hemorrhage Discharge Diagnosis 11/22/23 Depression, major, recurrent Discharge Diagnosis 11/22/23 Anxiety Discharge Diagnosis 11/22/23 Vital Signs Most recent to oldest [Reference Range]: 1 Height 165 cm (11/20/23 11:31 AM) Weight 95.1 kg (11/20/23 11:31 AM) Oxygen Saturation [94-100 %] 99 % (11/20/23 11:31 AM) Pulse Rate [55-90 bpm] 84 bpm (11/20/23 11:31 AM) Body Mass Index [18.5-24.99 kg/m2] 34.93 kg/m2 *>HHI* (11/20/23 11:31 AM) Blood Pressure [90-138/55-84 mm Hg] 122/ 75mm Hg (11/20/23 11:31 AM) Blood pressure sites Arm, left (11/20/23 11:31 AM) Weight Obtained Via Standing scale (11/20/23 11:31 AM) Social History Social History Type Response Smoking Status Never smoker; Tobacc o user in household: Yes; Other: Mother smoked; entered on: 07/19/15 Sex Note * Ashley Rojo: PERFORM, SIGN, VERIFY Event Display: Patient Education/Instruction Authored Date: [id number] [facility] *BMP So Rambo [place] Clinical Summary Name NED FRANCOIS Age 67 Years 1955 PCP Sameer RODGERS, July Guzman PCP Visit Date 11/20/2023 11:28:00 Additional Instructions: Scheduled Appointments?? Future Appointments ?No Future Appointments Scheduled Follow-Up Instructions ?? Diagnosis Medications: Please continue your medications until [...] Daily. take at 8 am. Next Dose: Quetiapine (SEROquel 300 mg oral tablet) 1 tab(s) Oral Daily at Bedtime. Next Dose: Allergy Info:?? Lyrica; Sudafed; shellfish Medications Given This Visit Future Orders ?No future orders Vital Signs Height 165 cm Weight 95.1 kg BMI 34.93 kg/m2 Blood Pressure 122 mm Hg/75 mm Hg Temperature Pulse Rate 84 bpm Respiratory Rate 02 Sat Mode of Delivery 99 %/ You can now view a summary of your hospital visit from the comfort of your home through a free online portal called [email or web address]. [email or web address] is a website that allows you to securely view your medical information including discharge summary, medications and follow-up visits. ??You can alsosend a secure electronic message to your doctor???s office to request appointments, renew medications or just ask a question. You can enroll at [email or web address] or register during your next office [...] primary care provider, you may find a [facility] provider by calling [facility] Spark Mobile Link at [phone]. [facility], in keeping with [facility] guidance, no longer requires face masks [...] Care Nurse Name: Bridget Salas RN Position: [facility] RN Member Role: Primary Care Nurse Name: July Estrella NP Position: [facility] PCO Associate Professional Member Role: PCP Address: Address: [address] [place] [address]- Name: Marah Oscar RN Position: [facility] AMB Nurse Member Role: Primary Care Nurse Name: Jaclyn Terrazas RN Position: [facility] JEMMA RN W/OE and Tasks Member Role: Primary Care Nurse Name: Bella Hall RN Position: [facility] RN Member Role: Primary Care Nurse Care Team Related Persons Name: PRAVEEN FRANCOIS Address: home [address] [place] [address]
--- OUTSIDE RECORDS SUMMARY | 2024-03-05 11:38 | XMS_ITS | Continuity of Care Document ---
Author Organization [facility] Dilan Ricks Anand lt Address [address] [place] [address]- Care Team Providers Care Helminthology Teacher Name Role Phone Not on Staff, PCP Primary Care Physician Unavail able [facility] Date(s): 05/03/21 - 06/02/21 [facility] Dilan Ricks Adult [address] [place] [address]- Allergies, Adverse Reactions, Alerts Substance Reaction Severity [...] Comment: [09/12/2016] got at work 4Location History: [facility] 5Admin Note: [facility] 6Admin [...] each, 0 Refills, Maintenance, 05/25/21 7:10:00 EDT, [facility]/pharmacy #[id number], Partial fill upon patient request if [...] 05/03/21 8:11:00 EDT, Route to Pharmacy Electronically, [facility]/pharmacy #[id number], Partial fill upon pat... Start Date: [...]
--- OUTSIDE RECORDS SUMMARY | 2024-03-05 11:38 | XMS_ITS | Continuity of Care Document ---
Author Organization [facility] ter Address [address] [place] [address]- Care Team Providers Care Financial Accounting Manager Name Role Phone Mirlande DEHYDROGENATION OPERATOR HEAD, Tena Mercado Primary Care Physician [place] [facility] [place] Date(s): 12/18/19 - 01/01/[address] [address]- [facility] Discharge Disposition: A-Transfer VNA/Home Health Attending Physician: Manpreet Faust MD Admitting Physician: Galina Jordan MD Referring Physician: Not on Staff, Referring [...] at work 5Location History: [place] 6Admin Note: [facility] 7Admin [...] 7dr vahe,gastro addressing;per sonogram january 2016 Results Radiology Reports * Exam Date Time Procedure Performing Provider Status 12/23/19 3:42 PM Chest Portable Georgette Rhodes (V erified) Notes: (Chest Portable) Reason For Exam: Shortness of Breath RESULT: Chest Portable Chest Portable AP upright at 2:27 PM Reason: Shortness of Breath; Clinical Question(s): ARDS / ARDS COMPARISON: 12/18/2019 FINDINGS: LINES AND TUBES: Endotracheal tube ends 3.3 cm above the shikha. Enteric tube courses below the diaphragm, tip not included in the [id number]-pc-lcxp but the side port projects in the stomach. LUNGS AND PLEURA: Hazy bilateral multifocal airspace opacity, slightly worse from the prior exam. No pleural effusion. No pneumothorax. HEART, MEDIASTINUM AND FLOR: Heart is normal in size. Normal mediastinal and hilar contour. BONES AND SOFT TISSUES: No acute abnormality. IMPRESSION: Slightly worsening multifocal bilateral airspace opacity, concerning for pneumonia. WSN: [id number] Ordering Physician: Ned Barnett Dictated By: Avinash Martinez MD Dictated Date/Time: 12/23/19 3:47 pm Reviewed By: Avinash Martinez MD Signed By: Avinash Martinez MD Signed Date/Time: 12/23/19 3:47 pm Transcribed By: LAMONTE Transcribed Date/Time: 12/23/19 3:46 pm * Exam Date Time Procedure Performing Provider Status 12/18/19 11:51 PM Chest Portable Roro Hutchinson (Verified) Notes: (Chest Portable) Reason For Exam: Tube Placement RESULT: Chest Portable Chest Portable Reason: Tube Placement; Clinical Question(s): Tube Placement COMPARISON: 12/18/2019 FINDINGS: LINES AND TUBES: Endotracheal tube terminates 3.3 cm above shikha. Nasogastric tube terminates in the stomach. LUNGS AND PLEURA: Opacity at the right lung apex has increased in size and density. There is also increased size of opacities in the left mid and lower lung zone. No pleural effusion. No pneumothorax. HEART, MEDIASTINUM AND FLOR: Heart is normal in size. Normal mediastinal and hilar contour. BONES AND SOFT TISSUES: No acute abnormality. IMPRESSION: Multifocal pneumonia has slightly progressed since prior. WSN: [id number] Ordering Physician: Paulo Wilson Dictated By: Olivia Ford MD Dictated Date/Time: 12/18/19 11:55 p Reviewed By: Olivia Ford MD Signed By: Olivia Ford MD Signed Date/Time: 12/18/19 11:55 pm Transcribed By: LAMONTE Transcribed Date/Time: 12/18/19 11:53 pm Vital Signs Most recent to oldest [Reference Range]: 1 2 3 Height 165 cm (01/01/20 8:34 AM) 165 cm (12/31/19 8:47 PM) 165 cm (12/31/19 8:12 AM) Weight 92.7 kg (01/01/20 10:08 AM) 91.2 kg (12/31/19 7:00 AM) 75.6 kg (12/29/19 5:16 AM) Oxygen Saturation [94-100 %] 94 % (01/01/20 8:34 AM) 98 % (12/31/19 8:47 PM) 97 % (12/31/19 8:12 AM) Pulse Rate [55-90 bpm] 85 bpm (01/01/20 8:34 AM) 98 bpm *H* (12/31/19 8:47 PM) 77 bpm (12/31/19 8:12 AM) Body Mass Index [18.5-24.99] 27.77 *H* (12/29/19 5:16 AM) 34.23 *>HHI* (12/18/19 7:24 PM) Blood Pressure [90-138/55-84 mm Hg] 124/73mm Hg (01/01/20 8:34 AM) 129/83mm Hg (12/31/19 8:47 PM) 101/69mm Hg (12/31/19 8:12 AM) Respiratory Rate [16-30 br/min] 18 br/min (01/01/20 10:23 AM) 20 br/min (01/01/20 8:34 AM) 18 br/min (12/31/19 8:47 PM) Temperature [96.8-100.4 DegF] 97.7 DegF (01/01/20 8:34 AM) 98.0 DegF (12/31/19 8:47 PM) 98 DegF (12/31/19 8:12 AM) Liters per Minute 1 L/min (12/28/19 8:00 AM) 1 L/min (12/28/19 4:00 AM) 1 L/min (12/28/19 2:00 AM) Mode of Delivery (Oxygen) Room air (01/01/20 8:34 AM) Room air (12/31/19 8:47 PM) Room air (12/31/19 8:12 AM) Blood pressure sites Arm, left (01/01/20 8:34 AM) Arm, right (12/31/19 8:47 PM) Arm, right (12/31/19 8:12 AM) Temperature Route Oral (01/01/20 8:34 AM) Oral (12/31/19 8:47 PM) Oral (12/31/19 8:12 AM) Dry Weight 93.2 kg (12/18/19 7:24 PM) Weight Obtained Via Bed scale (01/01/20 10:08 AM) Bed scale (12/31/19 7:00 AM) Bed scale (12/29/19 5:16 AM) Mobility assistance Transfer, assist of 2 (12/27/19 9:33 AM) Partial assistance (12/26/19 11:13 PM) Partial assistance (12/26/19 1:00 AM) Social History Social History Type Response Smoking Status Never smoker; Tobacc o user in household: Yes; Other: Mother smoked; entered on: 07/19/15 Sex
--- OUTSIDE RECORDS SUMMARY | 2024-03-05 11:38 | XMS_ITS | Continuity of Care Document ---
Author Organization [facility] Dilan Ricks Anand lt Address [address] [place] [address]- Care Team Providers Care Operations Clerk Name Role Phone Not on Staff, PCP Primary Care Physician Unavail able [facility] Date(s): 05/03/21 - 06/02/21 [facility] Dilan Rikcs Adult [address] [place] [address]- Allergies, Adverse Reactions, Alerts Substance Reaction Severity [...] influenza virus vaccine, inactivated 6 07/28/11 Gi ulcie Influenza Virus Vaccine (oldterm) 06/23/19 Recorde d Influenza Virus Vaccine (oldterm) 7 09/21/09 Given Influenza Virus Vaccine (oldterm) 07/24/07 Given tetanus/diphtheria/pertussis, acel(Tdap) 03/16/13 Given Tetanus Toxoid Vaccine (oldterm) 09/23/03 Given 1Result Comment: [10/08/2018] [place] 2Result Comment: [07/22/2017] [place] 3Result Comment: [09/12/2016] got at work 4Location History: [facility] 5Admin Note: [facility] 6Admin Note: work 7Admin Note: [...] 0 Refills, Maintenance, 05/25/21 7:10:00 EDT, [facility]/pharmacy #[id number], Partial fill upon patient request if [...] 8:11:00 EDT, Route to Pharmacy Electronically, [facility]/pharmacy #[id number], Partial fill upon pat... Start Date: [...]
--- OUTSIDE RECORDS SUMMARY | 2024-03-05 11:38 | XMS_ITS | Continuity of Care Document ---
Author Organization [facility] Anand lt Address [address] [place] [address]- Care Team Providers Care Rental Agent Name Role Phone Kinsey Molina NP Primary Care Physician [place] [facility] [place] 04/01/21 [facility] Adult [address] [place] [address]- Attending Physician: Eduardo Padilla Admitting Physician: AdmEduardo chase Referring Physician: AdmtrEduardo Allergies, Adverse Reactions, Alerts Substance Reaction Severity [...] influenza virus vaccine, inactivated 5 06/23/13 Gi lucei influenza virus vaccine, inactivated 6 07/28/11 Gi lucie Influenza Virus Vaccine (oldterm) 06/23/19 Recorde d Influenza Virus Vaccine (oldterm) 7 09/21/09 Given Influenza Virus Vaccine (oldterm) 07/24/07 Given tetanus/diphtheria/pertussis, acel(Tdap) 03/16/13 Given Tetanus Toxoid Vaccine (oldterm) 09/23/03 Given 1Result Comment: [10/08/2018] [place] 2Result Comment: [07/22/2017] [place] 3Result Comment: [09/12/2016] got at [facility] 5Admin Note: [facility] 6Admin Note: work 7Admin Note: [...] capsule, 0 Refills, Maintenance, 02/27/21 17:34:00EDT, Capsule, [facility]/pharmacy #[id number], Partial fill upon patient request if the [...] 1 Refills, Maintenance, 03/02/21 16:50:00 EDT, Gel, [facility]/pharmacy #[id number], Partial fill upon patient request [...] reflu x disease)(Confirmed) Active H/O herpes zoster 2009 rt T5 dermatome(Confirmed) 3 Active History of [...]
--- OUTSIDE RECORDS SUMMARY | 2024-03-05 11:38 | XMS_ITS | Continuity of Care Document ---
Author Organization [facility] [employer] Anand lt Address [address] [place] [address]- Care Team Providers Care Surfacing Machine Operator Name Role Phone Kinsey Molina NP Primary Care Physician [phone] [facility] Date(s): 02/27/21 - 03/29/21 [facility] Dilan Acunaley Adult [address] [place] [address]- Allergies, Adverse Reactions, Alerts Substance Reaction Severity [...] got at [facility] 5Admin Note: [facility] 6Admin Note: work 7Admin Note: declined [...] capsule, 0 Refills, Maintenance, 02/27/21 17:34:00EDT, Capsule, [facility]/pharmacy #[id number], Partial fill upon patient request if the [...] 1 Refills, Maintenance, 03/02/21 16:50:00 EDT, Gel, [facility]/pharmacy #[id number], Partial fill upon patient request [...]
--- OUTSIDE RECORDS SUMMARY | 2024-03-05 11:38 | XMS_ITS | Continuity of Care Document ---
Author Organization [facility] Anand Address [address] [place] [address]- Care Team Providers Care Financial Aid Name Role Phone Sameer RODGERS, July Guzman Primary Care Physician [facility] Date(s): 09/18/22 - 10/18/22 [facility] Dilan Acunaley Adult [address] [place] [address]- Allergies, Adverse Reactions, Alerts Substance Reaction Severity [...] [facility] 7Admin Note: work Medications Abilify 5 [...] Team Personnel Name: Keith Patrick RN Position: [facility] RN Member Role: Primary Care Nurse Name: Shyann Salinas RN Position: [facility] RN Member Role: Primary Care Nurse Name: Tarik Davis RN Position: [facility] ED RN W/OE and Tasks Member Role: Primary Care Nurse Name: Rito Son RN Position: [facility] RN Member Role: Primary Care Nurse Name: Bridget Salas RN Position: S RN Member Role: Primary Care Nurse Name: July Estrella NP Position: [facility] PCO Associate Professional Member Role: PCP Address: Address: [address] [place] [address]- Name: Krupa Ventura RN Position: [facility] RN Member Role: Primary Care Nurse Name: Mickey Aaron RN Position: [facility] ED RN W/OE and Tasks Member Role: Primary Care Nurse Name: Bella Hall RN Position: S RN Member Role: Primary Care Nurse Name: Mari Dimas RN Position: [facility] RN Member Role: Primary Care Nurse Care Team Related Persons Name: PRAVEEN FRANCOIS Address: [address] [place] [address]
--- OUTSIDE RECORDS SUMMARY | 2024-03-05 11:38 | XMS_ITS | Continuity of Care Document ---
Author Organization [facility] Rambo Anand lt Address [address] [place] [address]- Care Team Providers Care Crane Chaser Name Role Phone Sameer RODGERS, July Guzman Primary Care Physician [facility] - 12[facility]07/23 [facility] Dilan Acunaley Adult [address] [place] [address]- Allergies, Adverse Reactions, Alerts Substance Reaction Severity [...] Comment: [09/12/2016] got at work 5Location History: [facility] 6Admin Note: [facility] 7Admin Note: work Medications Abilify [...] Team Personnel Name: Keith Patrick RN Position: [facility] RN Member Role: Primary Care Nurse Name: Tarik Davis RN Position: [facility] JEMMA RN W/OE and Tasks Member Role: Primary Care Nurse Name: Bridget Salas RN Position: [facility] RN Member Role: Primary Care Nurse Name: July Estrella NP Position: [facility] PCO Associate Professional Member Role: PCP Address: Address: [address] [place] [address]- [place] Name: Marah Oscar RN Position: [facility] AMB Nurse Member Role: Primary Care Nurse Name: Jaclyn Terrazas RN Position: [facility] ED RN W/OE and Tasks Member Role: Primary Care Nurse Name: Bella Hall RN Position: [facility] RN Member Role: Primary Care Nurse Care Team Related Persons Name: PRAVEEN FRANCOIS Address: home [address] [place] [address]
--- OUTSIDE RECORDS SUMMARY | 2024-03-05 11:38 | XMS_ITS | Continuity of Care Document ---
Author Organization [facility] Imperial Anand Address [address] [place] [address]- Care Team Providers Care Mixer And Scaler Name Role Phone Sameer RODGERS, July Guzman Primary Care Physician [phone] [facility] Date[facility]s): 09/13/22 - 10/13/22 [facility] Dilan Imperial Adult [address] [place] [address]- Allergies, Adverse Reactions, Alerts Substance Reaction Severity [...] at work 5Location History: [place] 6Admin Note: [facility] 7Admin Note: work Medications Abilify [...] Care Nurse Name: Shyann Salinas RN Position: [facility] RN Member Role: Primary Care Nurse Name: Tarik Davis RN Position: [facility] ED RN W/OE and Tasks Member Role: Primary Care Nurse Name: Rito Son RN Position: [facility] RN Member Role: Primary Care Nurse Name: Bridget Salas RN Position: S RN Member Role: Primary Care Nurse Name: July Estrella NP Position: [facility] PCO Associate Professional Member Role: PCP Address: Address: [address] [place] [id number]- Name: Krupa Ventura RN Position: [facility] RN Member Role: Primary Care Nurse Name: Mickey Aaron RN Position: [facility] ED RN W/OE and Tasks Member Role: Primary Care Nurse Name: Bella Hall RN Position: S RN Member Role: Primary Care Nurse Name: Mari Dimas RN Position: S RN Member Role: Primary Care Nurse Care Team Related Persons Name: PRAVEEN FRANCOIS Address: [address] [place] [address]
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
== END 2024-03-05 14:14 | disposition home or self-care (01) ==
LOC: HO.HOP 11:32
PROVIDERS: PCP Nurse Practitioner Family; Visit Provider Psychiatry & Neurology Psychiatry
DX: F33.2 Major depressive disorder, recurrent severe without psychotic features (principal); F43.10 Post-traumatic stress disorder, unspecified
CPT/HCPCS: 90833; 99213

== ENCOUNTER → 2024-03-05 11:32 | Outpatient (BNVA) | payer MEDICARE, SELFPAY | PROVIDERS: PCP Nurse Practitioner Family; Visit Provider Psychiatry & Neurology Psychiatry | DX: F33.2 Major depressive disorder, recurrent severe without psychotic features (principal); F43.10 Post-traumatic stress disorder, unspecified | CPT/HCPCS: 99212 ==

== ENCOUNTER 2024-03-09 08:25 | Outpatient (AMB) | payer MEDICARE, SELFPAY ==
[2024-03-09 08:38] VITALS: BP 118/70; PULSE 86; O2SAT 98; BMI 32.5
--- NOTE | 2024-03-09 08:38 | MHC.OFFVIS ---
Vital Signs 03/09/24 08:38 Height 5 ft 7 in Weight 207 lb 3.752 oz BMI 32.5 BP 118/70 Blood Pressure Location Lt brachial Position Sitting Pulse 86 Pulse Source Pulse Oximeter Pulse Oximetry (%) 98 Oxygen Delivery Method Room Air Intake Visit Reasons: pneumonitis Allergies shellfish derived [SHELLFISH DERIVED] Allergy (Severe, Verified 03/09/24 08:40) DIFFICULTY BREATHING pseudoephedrine [From SUDAFED] Allergy (Intermediate, Verified 03/09/24 08:40) AGITATION pregabalin [From Lyrica] Allergy (Verified 03/09/24 08:40) Dizziness HPI Comments Details: The patient is a 68-year-old woman who apparently was in her usual state health until sometime in the spring when she developed severe COVID. She had severe pneumonia with acute hypoxic respiratory failure and was admitted to [facility]. Her condition worsened to the point that she needed to be intubated which she spent some time in the ICU. She was able to recover in she was liberated from the ventilator and placed on oxygen. Subsequently after that she was able to be discharged. Ever since then her respiratory status has not been the same. She has been complaining of shortness of breath with minimal activity. She does have a history of PTSD and sometimes when she does get short of breath she starts to panic that she is not sure visit her anxiety causing the shortness of breath or if the shortness of breath is worsening her anxiety. The patient did have a repeat chest x-ray sometime in March 2022 which I personally reviewed demonstrating interval resolution of the airspace disease. In addition to that she she recently underwent pulmonary function studies at [facility]. I also reviewed does which demonstrated a mild degree of restriction and also mild degree of diffusion impairment. This changes are likely due to her severe COVID. During the visit we did go for brief walking oximetry. The patient was able to maintain a saturation of 95% with ambulation. She became more short of breath with dyspnea score 5/10 1 heart rate increased over 100. on examination the patient does have some end expiratory wheezing. And also some end expiratory coughing also consistent with small airways disease. Will go ahead and treat her with respiratory therapy and also the patient will benefit significantly from pulmonary rehabilitation. 10/02/2022 the patient is here for a pulmonary follow-up visit. The patient overall is doing better. She did go on a cruise to [place] and [place]. She had a great time but she got sick with a viral syndrome. When she got back she did go to the ER. She was swabbed for flu, RSV and COVID-19 will negative. Her chest x-ray demonstrated some evidence of bronchitis. The patient was treated conservatively. She does continue to use the Trelegy inhaler. This has been helpful. Although, she feels like she also needs a rescue inhaler. I was summoned to the pharmacy. The patient has not started pulmonary rehab as of yet. This will be coming up soon. Also to note, the patient did have blood work when she went to the ER and she did have evidence transaminitis. The patient also has some abdominal discomfort on palpation with some voluntary guarding of the right upper quadrant. Therefore, is resolved for her to get an ultrasound at this time. She is already status post cholecystectomy. Otherwise patient is without any other complaints. Will follow-up in 4-6 months. 05/01/2023 The patient is here for a pulmonary follow up vist. She went to [place] and became sick on her way back. She developed and cough and URI. Was evaluated by her PCP then by an urgent care. She had a CXR done. Flu swab was positive, but too late for Tamiflu. Her symptoms worsened with congested cough and wheezing. She called the office and we sent her prednisone and Doxycycline. Currently, she is better. Concerned because when she was sick, she did not respond to the albuterol HFA. We will provide her a nebulizer. We reviewed her PFTs demonstrating a restrictive lung disease process. She will need a CT chest to better assess for interstitial lung disease. She will start pulmonary rehab. She prefers [facility]. 07/31/2023 the patient is here for a pulmonary follow-up visit. The patient overall has been feeling better. She continues on the Trelegy inhaler. She has not required her rescue inhaler. Does have a need to make often nonproductive in nature. Again, over the summer she did have the flu. She was treated accordingly. She did have a CT scan of the chest that we personally reviewed to assess her abnormal PFTs. It appears that she does have some small areas of ground-glass opacities bilateral the bases. Again this is minimal. The patient is also cough from a recent respiratory illness but at this point she is improved. Could have been a prodrome all findings before she became ill with her recent infection. Could also have been residual effects from the viral syndromes that she has had in the past. Although inflammatory conditions are still in the differential. Therefore will go ahead and request blood work to assess for inflammatory changes. The patient also can call the office if she develops worsening cough so we can give her some additional therapies. Will plan to repeat the CT scan in 6 months to make sure that ground-glass opacities subsided and then will follow up with her then. 03/09/2024 the patient is here for a pulmonary follow-up visit. She is still having some issues of difficulty breathing at times. Specially when she is exercising. Tqry-tb-dniizpqy severity. He is wondering what is going on. I did explain to her that she does have some degree of restrictive lung disease. In addition to that she does have some underlying airways disease. She did have a CT scan of the chest recently we did review demonstrating some areas of migratory ground-glass opacities suggesting pneumonitis. Primarily at the bases. We did talk about reflux disease. She does have reflux symptoms. Therefore reflux related microaspiration resulting in aspiration pneumonitis in differential. In addition to that her blood work demonstrated significant eosinophilia so therefore eosinophilic pneumonia is also in differential. The patient also has a hypersensitivity panel pending. Does not back yet. The final report of the CT scan is not available as of yet. Therefore, we talked about the barium swallow she is going to have 1 done. Also she is going to start reflux diet. Will wait final results of the CT scan. She does respond well to Trelegy although it is very expensive. I will switch over to Wixela in order for her to have some degree of cortical steroid therapy to decrease the burden of the eosinophils. [facility] Medical History (Updated 03/09/24 @ 20:54 by Hero Gzuman MD) Major depression in remission Major depression single episode, in partial remission Major depression, recurrent, chronic Pneumonitis Dyspnea Flu Osteopenia History of hyperglycemia Fatty liver Hepatitis Small airways disease Chronic restrictive lung disease COVID-19 History of shingles History of COVID-19 Stress incontinence GERD (gastroesophageal reflux disease) IBS (irritable bowel syndrome) Surgical History History of adenoidectomy Hx of tonsillectomy History of appendectomy History of cholecystectomy Social History Household Members: Spouse and Other Household Members Other:: A son Housing: House Do you presently have visiting nurse or other home services: No Alcohol intake: never Patient Tobacco Use Status: Never used Tobacco e-Cigarette/Vaping Use: Never Used Second Hand Smoke Exposure: No service: No Sexual orientation: Straight/Heterosexual Review of Systems Const Denies malaise and Denies weight gain Eyes Denies change in vision ENT Denies change in voice Card Denies chest pain and Denies dyspnea on exertion Resp Denies cough, Denies pain on inspiration, Denies pain with cough and Denies dyspnea on exertion GI Reports no additional complaints Musc Reports no additional complaints Skin/Breast Denies rash Neuro Reports no additional complaints Psych Reports as per HPI Dougie/Lymph Denies easy bleeding and Denies easy bruising Physical Exam Vital Signs: Last Vital Signs Pulse 86 03/09/24 08:38 BP 118/70 03/09/24 08:38 Pulse Ox 98 03/09/24 08:38 Oxygen Delivery Method Room Air 03/09/24 08:38 BMI result Body Mass Index 32.5 Const General: comfortable HEENT Head: Yes normal to inspection Eyes General: appearance normal, both eyes and all related structures Neck Neck: Yes supple Chest Chest palpation & inspection: normal inspection of the chest Resp Effort & Inspection: normal respiratory effort Auscultation: clear to auscultation bilaterally and no wheezes (end expiration) Cardio Rate: regular rate Rhythm: regular rhythm Heart sounds: S1 normal heart sound present and S2 normal heart sound present GI Palpation (GI): Soft to palpation and Tenderness to palpation present (GI) in the RUQ Auscultation: normal bowel sounds Skin Rashes: no rashes Extrem General: Yes no clubbing, cyanosis or edema Assessment & Plan Assessment & Plan (1) Chronic restrictive lung disease: Code(s): J98.4 - Other disorders of lung Category: Medical (2) Small airways disease: Code(s): J98.4 - Other disorders of lung Category: Medical (3) Pneumonitis: Comment: GGO Bibasilar Code(s): J98.4 - Other disorders of lung Category: Medical (4) GERD (gastroesophageal reflux disease): Code(s): K21.9 - Gastro-esophageal reflux disease without esophagitis Category: Medical Qualifiers: Esophagitis presence: without esophagitis Qualified Code(s): K21.9 - Gastro-esophageal reflux disease without esophagitis Plan stop Trelegy daily start Wixela BARBARA as needed nebulizer reflux diet sleep with HOB elevated barium swallow awaitng read on CT chest F/U 6 months Orders: Orders [place] barium swallow Today K21.9 - Gastro-esophageal reflux disease without esophagitis Medications: New fluticasone propion-salmeterol 500-50 mcg/dose (Wixela Inhub) 1 inh inhalation Q12H 60 ea 11RF 30 days Discontinued kxdkltfaugt-fxciyrmli-llkpetoo 200-62.5-25 mcg (Trelegy Ellipta) Discontinued Reason: Doctor's Order 1 ea PO DAILY 60 ea 0RF J98.4 - Other disorders of lung Coding Level of Care Code Est Pt Level 4 (24697) Diagnoses Chronic restrictive lung disease J98.4 Small airways disease J98.4 Pneumonitis J98.4 Gastroesophageal reflux disease without esophagitis K21.9 Esophagitis presence: without esophagitis Time Spent (min) 17
== END 2024-03-09 09:08 | disposition home or self-care (01) ==
PROVIDERS: PCP Nurse Practitioner Family; Visit Provider Hospitalist
DX: J98.4 Other disorders of lung (principal); K21.9 Gastro-esophageal reflux disease without esophagitis
CPT/HCPCS: 99214

== ENCOUNTER → 2024-03-09 08:25 | Outpatient (BNVA) | payer MEDICARE, SELFPAY | PROVIDERS: PCP Nurse Practitioner Family; Visit Provider Hospitalist | DX: J98.4 Other disorders of lung (principal); K21.9 Gastro-esophageal reflux disease without esophagitis | CPT/HCPCS: 99212 ==

== ENCOUNTER 2024-03-11 10:12 | Inpatient (IN) | payer MEDICARE, SELFPAY ==
--- NOTE | ~2024-03-11 | FL_ITS ---
EXAMINATION: XR FLUOROSCOPY UPPER GI WITH AIR CLINICAL INFORMATION: Shortness of breath. Hoarseness COMPARISON: None TECHNIQUE: Fluoroscopic air contrast upper GI examination was performed utilizing standard techniques with thin and thick barium and effervescent granules. Numerous spot images were obtained. FINDINGS: Lateral cine images of the oropharynx and hypopharynx demonstrate normal swallow mechanism with normal epiglottic inversion and soft palate elevation. No tracheal penetration, glottic or subglottic aspiration identified. No nasopharyngeal reflux present. A small pharyngeal pouch is noted. A small Zenker's diverticulum is present. Moderate cricopharyngeal achalasia present. Dual and single contrast images of the esophagus demonstrate a normal caliber and, contour. There is a granular appearance to the esophageal mucosa. No masses or ulcerations are seen Esophageal peristalsis was mildly disordered.. A small type I hiatal hernia is present. Significant gastroesophageal reflux is seen up to the thoracic inlet. Dual contrast and single contrast images of the stomach demonstrated a normal contour. There are multiple small well-circumscribed filling defects in the body and fundus of the stomach that likely represents small hyperplastic polyps. No masses are seen. Contrast freely passed into the gastric antrum and duodenal bulb without delay. Single and air-contrast images of the duodenal bulb demonstrate no abnormality. The duodenal sweep has a normal appearance, course, and mucosal fold appearance. No malrotation. The imaged proximal jejunum has a normal fold pattern and caliber. Cholecystectomy clips are present. FLUOROSCOPY TIME: 3 minutes 32 seconds Number of Spot Images: 11 Number of Cine: 15 DOSE AREA PRODUCT: 2081 uGy-m2 (microgray-meter squared) FL/FL barium swallow with air IMPRESSION: 1. Small pharyngeal pouch. 2. Small Zenker's diverticulum. 3. Moderate cricopharyngeal achalasia. 4. Granular appearance to the esophageal mucosa that likely represents reflux esophagitis. 5. Severe gastroesophageal reflux. 6. Small type I hiatal hernia. 7. Numerous small well-circumscribed filling defects in the body and fundus of the stomach that likely represent small hyperplastic polyps. Recommend correlation with EGD. This procedure was performed by Kyle Bianchi PA-C, and supervised by Dr. Arzola
[2024-03-11 10:35] VITALS: BP 118/85; PULSE 88; RESP 18; TEMP 36.8; O2SAT 98; BMI 32.4
--- NOTE | 2024-03-11 10:44 | ECG_ITS ---
Test Reason : ANXIETY Blood Pressure : / mmHG Vent. Rate : 084 BPM Atrial Rate : 084 BPM P-R Int : 170 ms QRS Dur : 094 ms QT Int : 382 ms P-R-T Axes : 060 005 075 degrees QTc Int : 451 ms Normal sinus rhythm Nonspecific ST and T wave abnormality Abnormal ECG When compared with ECG of 04-APR-2023 16:47, Nonspecific T wave abnormality no longer evident in Inferior leads Nonspecific T wave abnormality, worse in Anterior leads Referred By: Frances Lal Electronically Signed By:Joni Spann
--- NOTE | 2024-03-11 10:44 | ED_ITS ---
HPI - General Adult General Chief complaint: Psychiatric Symptoms Stated complaint: anxiety Time Seen by Provider: 03/11/24 10:43 Source: patient Mode of arrival: ambulatory Limitations: no limitations History of Present Illness ED Provider: Frances Lal PA-C HPI narrative: Patient is a 68 year old assigned female at with a history of GERD, PTSD, depression, and hepatitis presenting to the emergency department today with increased anxiety, depression, and SI with no plan. Patient states that she has been feeling much more depressed and anxious with thoughts of suicidal ideation but does not have a plan. Patient denies any dizziness, lightheadedness, abdominal pain, nausea, vomiting, fever, chills, blurry vision, double vision, loss of vision, chest pain, difficulty breathing, shortness of breath, back pain, night sweats, pain with urination, increased urinary frequency, increased urinary urgency, blood in her urine or stool, syncope or a near syncopal episode, recent trauma or falls, bowel incontinence, bladder incontinence, or any other complaints at this time. Onset (ago): day(s) Relieving factors: none Exacerbating factors: none Associated symptoms: denies other symptoms Treatments prior to arrival: none Related Data Home Medications ?Medication ?Instructions ?Recorded ?Confirmed aripiprazole 5 mg tablet 5 mg PO DAILY 03/11/24 03/11/24 clomipramine 25 mg capsule 75 mg PO BEDTIME 03/11/24 03/11/24 clonazepam 0.5 mg tablet 0.5 mg PO BEDTIME PRN insomnia 03/11/24 03/11/24 fluticasone 500 mcg-salmeterol 50 1 ea inhalation BID 03/11/24 03/11/24 mcg/dose blistr powdr for inhalation (Advair Diskus) naproxen 500 mg tablet 500 mg PO BID 03/11/24 03/11/24 omeprazole magnesium 20 mg 20 mg PO DAILY 03/11/24 03/11/24 tablet,delayed release (Prilosec OTC) paroxetine HCl 40 mg tablet 40 mg PO DAILY 03/11/24 03/11/24 quetiapine 100 mg tablet 300 mg PO BEDTIME 03/11/24 03/11/24 quetiapine 25 mg tablet 25 mg PO BID 03/11/24 03/11/24 Allergies Allergy/AdvReac Type Severity Reaction Status Date / Time shellfish derived Allergy Severe DIFFICULTY Verified 03/11/24 10:39 [SHELLFISH DERIVED] BREATHING pseudoephedrine Allergy Intermediate AGITATION Verified 03/11/24 10:39 [From SUDAFED] pregabalin [From Lyrica] Allergy Dizziness Verified 03/11/24 10:39 Review of Systems 2 Constitutional: Constitutional: Reports no additional constitutional complaints, Denies chills, Denies fever(s) and Denies night sweats Eyes: Eyes: Reports no additional eye complaints, Denies blurry vision, Denies change in vision, Denies diplopia, Denies eye discharge, Denies loss of vision and Denies eye pain ENT: Denies dizziness Cardiovascular: Cardiovascular: Reports no additional cardiovascular complaints, Denies chest pain, Denies lightheadedness, Denies Loss of Consciousness and Denies dyspnea Respiratory: Respiratory: Reports no additional respiratory complaints and Denies dyspnea Gastrointestinal: Gastrointestinal: Reports no additional gastrointestinal complaints, Denies abdominal pain, Denies melena, Denies hematochezia, Denies change in bowel habits and Denies change in stool character Genitourinary: Genitourinary: Denies hematuria, Denies urinary frequency, Denies dysuria, Denies urinary incontinence, Denies urinary hesitancy and Denies urinary urgency Musculoskeletal: Musculoskeletal: Reports no additional musculoskeletal complaints, Denies numbness and Denies tingling Neurologic: Denies dizziness, Denies loss of vision, Denies numbness and Denies tingling Psychiatric: Psychiatric: Reports anxiety, Reports depression, Denies homicidal ideation and Reports suicidal ideation Endocrine: Endocrine: Reports no additional endocrine complaints Hematologic/Lymphatic: Hematologic/Lymphatic: Reports no additional hematologic/lymphatic complaints Allergic/Immunologic: Allergic/Immunologic: Reports no additional allergic/immunologic complaints [facility] Past Medical History Attestation statement: The following information was validated with the patient. Source: old records reviewed and nursing notes reviewed Medical History Major depression in remission Major depression single episode, in partial remission Major depression, recurrent, chronic Pneumonitis Dyspnea Flu Osteopenia History of hyperglycemia Fatty liver Hepatitis Small airways disease Chronic restrictive lung disease COVID-19 History of shingles History of COVID-19 Stress incontinence GERD (gastroesophageal reflux disease) IBS (irritable bowel syndrome) Surgical History History of adenoidectomy Hx of tonsillectomy History of appendectomy History of cholecystectomy Social History Social History Household Members: Spouse and Other Household Members Other:: A son Housing: House Do you presently have visiting nurse or other home services: No Alcohol intake: never Patient Tobacco Use Status: Never used Tobacco Smoked in Last 30 Days: No e-Cigarette/Vaping Use: Never Used Second Hand Smoke Exposure: No Use of substances other than those prescribed or required for medical reasons: No Any prior treatment program specific to substance use: No Advance Directives: No Advance Directives Information Provided: Yes Do you have a plan to hurt others: No Plan service: No Sexual orientation: Straight/Heterosexual Physical Exam ED Vital Signs: Vital Signs - 24 hr 03/11/24 10:35 03/11/24 10:53 Temperature 98.2 F 98.2 F Pulse Rate 88 88 Respiratory Rate 18 18 Blood Pressure 118/85 118/85 Pulse Oximetry 98 98 Oxygen Delivery Method Room Air Room Air BMI result Body Mass Index 32.4 Const General: cooperative, no acute distress, alert and awake Nutritional Appearance: well nourished Orientation/consciousness: patient oriented x3 Limitations: no limitations HENMT Head: Yes normal to inspection and Yes atraumatic Ears: hearing grossly normal bilaterally and external ears normal General nose exam: Normal external nose present, no nasal discharge noted and no epistaxis Face and sinus: Yes normal facial exam, No abrasion and No laceration Mouth: Normal oral and palatal mucosa present, no drooling and no muffled voice Eyes General: appearance normal, both eyes and all related structures Periorbital: periorbital findings normal Eyelids: Yes eyelids normal Conjunctivae: conjunctivae normal Pupils: Equal, round and reactive pupils present EOM: EOMs intact bilaterally Neck Neck: Yes normal visual inspection, Yes full ROM and Yes no lymphadenopathy Chest Chest palpation & inspection: normal inspection of the chest Resp Effort & Inspection: normal respiratory effort and able to speak in complete sentences GI Inspection: Yes normal to inspection Neuro General: patient oriented x3 and moves all extremities Cranial nerves: Yes Equal, round and reactive pupils present Cognition (Neuro): normal cognition Motor exam (neuro): 5/5 motor strength present throughout Sensory Exam: Normal double simultaneous stimulation for sensation Coordination: [id number] test normal Extrem General: Yes normal to inspection, Yes full ROM and Yes capillary refill normal Psych Appearance: grossly normal Mental Status: mental status grossly normal Affect: Sad affect present Attitude: Guarded attititude/behavior present Thought content: Suicidality present Medical Decision Making Medical Decision Making MDM Narrative: Patient is a 68 year old assigned female at with a history of GERD, MDD, PTSD, OCD, and hepatitis presenting to the emergency department today with increased anxiety, depression, and suicidal ideation without a plan. Patient's physical exam was as noted in the physical exam portion of this note. Patient's blood work was unremarkable. Patient's urine showed no acute process. Patient's EKG was unremarkable. I explained my physical exam findings as well as all test results to the patient. I answered all questions asked by the patient. Patient was seen by the CARE team who recommended inpatient level of psychiatric care. Patient to remain in the department pending psychiatric admission. Differential Diagnosis Differential Diagnoses: The differential diagnosis associated with the presentation includes Depression Anxiety Suicidal ideation Admission/Observation Consideration of admission/observation: Escalation of care including admission/observation considered Patient will be admitted for psychiatric inpatient care. Consult Healthcare Provider Management of the patient was discussed with: Board Certified Family Physician (spoke with the CARE team as noted in the MDM Rationale portion of this note.) Lab Data [facility] Lab Attestation statement: I reviewed the patient's lab results. My interpretation of these results are in the MDM Rationale portion of this note. 03/11/24 11:12 03/11/24 11:12 Labs: Lab Results 03/11/24 03/11/24 Range/Units 10:54 11:12 WBC 8.5 (4.8-10.8) X10*3/uL RBC 4.36 (4.20-5.50) X10*6/uL Hgb 13.3 (12.0-16.0) g/dl Hct 41.0 (37.0-47.0) % MCV 94.0 (80.0-98.0) fL MCH 30.5 (27.0-33.0) pg MCHC 32.4 (31.0-35.0) g/dl RDW 14.1 (11.0-16.0) % Plt Count 211 (160-400) X10*3/uL MPV 11.5 (9.4-12.3) fL Immature Gran % (Auto) 0.4 (0.0-0.4) % Neut % (Auto) 53.6 (45-73) % Lymph % (Auto) 18.4 L (20-40) % [place] % (Auto) 4.9 (2-11) % Eos % (Auto) 22.2 H (0-4) % Baso % (Auto) 0.5 (0-2) % Lymph # (Auto) 1.6 (1.2-4.9) X10*3/uL [place] # (Auto) 0.4 (0.1-1.2) X10*3/uL Eos # (Auto) 1.9 H (0.0-0.4) X10*3/uL Baso # (Auto) 0.0 (0.0-0.2) X10*3/uL Abs Immat Gran (auto) 0.03 (0.00-0.03) X10*3/uL Absolute Neuts (auto) 4.6 (2.0-8.3) x10*3/uL Absolute Nucleated RBC 0.000 (0.0-0.012) X10*3/uL Nucleated RBC % (auto) 0.0 (0.0-0.2) /100WBC Smear Tech's Comments VERIFIED Sodium 144 (135-145) mmol/L Potassium 3.9 (3.3-5.1) mmol/L Chloride 107 (96-108) mmol/L Carbon Dioxide 31 H (22-29) mmol/L Anion Gap 10 L (12-20) BUN 15 (9-16) mg/dL Creatinine 0.96 (0.5-1.4) mg/dL Estim Creat Clear Calc 66.8 Estimated GFR 58 Random Glucose 120 H (60-115) mg/dL Calcium 9.7 D (8.4-10.2) mg/dL Total Bilirubin 0.3 (0.0-1.0) mg/dL AST 21 (5-31) U/L ALT 24 (0-31) U/L Alkaline Phosphatase 100 (39-117) U/L Total Protein 6.4 L (6.5-8.0) g/dL Albumin 3.8 (3.5-5.0) g/dL Urine Color Yellow Urine Appearance Clear Urine pH 6.0 (5.0-9.0) Ur Specific [place] 1.020 (1.005-1.025) Urine Protein Negative (Neg-Trace) mg/dL Urine Glucose (UA) Negative (Negative) mg/dL Urine Ketones Negative (Negative) mg/dL Urine Blood Negative (Negative) Urine Nitrite Negative (Negative) Ur Leukocyte Esterase Negative (Negative) Urine Test NEGATIVE (NEGATIVE) Salicylates < 5.0 L (15-30) mg/dL Urine Opiates Screen Not Detected (Not Detect) Ur Buprenorphine Scrn Not Detected (Not Detect) ng/mL Ur Oxycodone Screen Not Detected (Not Detect) ng/mL Urine Methadone Screen Not Detected (Not Detect) ng/mL Urine Fentanyl Screen Not Detected (Not Detect) Acetaminophen < 3 (<30) mcg/mL Ur Barbiturates Screen Not Detected (Not Detect) Ur Phencyclidine Scrn Not Detected (Not Detect) Ur Amphetamines Screen Not Detected (Not Detect) U Benzodiazepines Scrn Not Detected (Not Detect) Urine Cocaine Screen Not Detected (Not Detect) U Marijuana (THC) Screen Not Detected (Not Detect) Ethyl Alcohol < 10 mg/dL COVID-19 (THANH) Negative (Negative) COVID-19 Clin Com See Note Independent Interpretation I performed an independent interpretation of an: EKG Interpretation: Vent. Rate: 084 BPM Atrial Rate: 084 BPM P-R Int: 170 ms QRS Dur: 094 ms QT Int: 382 ms P-R-T Axes: 060 005 075 degrees QTc Int: 451 ms Normal sinus rhythm Nonspecific ST and T wave abnormality Abnormal ECG When compared with ECG of 04-APR-2023 16:47, Nonspecific T wave abnormality no longer evident in Inferior leads Nonspecific T wave abnormality, worse in Anterior leads DD/ 1052 Radiology Impression Discussion of test interpretation with radiology: I have reviewed the radiologist's reading. Critical Care Time Critical Care Time Critical Care Time: Yes Total Critical Care Time: 32 Attestation: I spent 32 minutes of Critical Care Time with this patient. This does not include time spent on separately reported billable procedures. Discharge Plan Discharge Clinical Impression: Depression, Suicidal ideation Patient Disposition: Still a Patient Prescriptions: No Action quetiapine 25 mg tablet 25 mg PO BID clonazepam 0.5 mg tablet 0.5 mg PO BEDTIME PRN (Reason: insomnia) quetiapine 100 mg tablet 300 mg PO BEDTIME fluticasone propion-salmeterol [Advair Diskus] 500-50 mcg/dose blister with device 1 ea inhalation BID paroxetine HCl 40 mg tablet 40 mg PO DAILY clomipramine 25 mg capsule 75 mg PO BEDTIME naproxen 500 mg tablet 500 mg PO BID aripiprazole 5 mg tablet 5 mg PO DAILY omeprazole magnesium [Prilosec OTC] 20 mg Tablet,Delayed Release (Dr/Ec) 20 mg PO DAILY Interventions: [place]-Suicide Risk Severity Scale Last Done: 03/11/24 10:55 Print Language: Bahamian
[2024-03-11 10:53] VITALS: BP 118/85; PULSE 88; RESP 18; TEMP 36.8; O2SAT 98
--- NOTE | 2024-03-11 10:57 | PC.NURSE ---
PT was referred to [facility] from Dr. Herrera for eval from CARE Team. Per triage the patient reported SI with no plan. Upon assessment the patient does not deny SI but states, I feel safer now that I'm in the hospital . The patient denies HI as well as AH/VH. The patient denies using tobacco, alcohol and other substances. The patient is cooperative with assessment but appears to be anxious and slightly withdrawn.
[2024-03-11 11:15] LABS: Appearance Urine Clear; Color Urine Yellow; Glucose Urine UA Negative (Negative); Leukocyte Esterase Urine Negative (Negative); Nitrite Urine Negative (Negative); Urine Blood Negative (Negative); Urine Ketones Negative (Negative); Urine Protein Negative (Neg-Trace)
[2024-03-11 11:17] LABS: UPreg QC Valid YES; Urine Pregnancy NEGATIVE (NEGATIVE)
[2024-03-11 11:20] LABS: Basophils Percent Auto 0.5 % (0-2); Eosinophils Absolute Auto 1.9 X10*3/uL (0.0-0.4); Eosinophils Percent Auto 22.2 % (0-4); Hemoglobin 13.3 g/dl (12.0-16.0); Imm Gran Abs Auto 0.03 X10*3/uL (0.00-0.03); Imm Gran Pct Auto 0.4 % (0.0-0.4); Lymphocytes Absolute Auto 1.6 X10*3/uL (1.2-4.9); Lymphocytes Percent Auto 18.4 % (20-40); MANUAL DIFF FLAG SCAN; Mean Corpuscular HGB Conc 32.4 g/dl (31.0-35.0); Mean Corpuscular Hemoglobin 30.5 pg (27.0-33.0); Mean Platelet Volume 11.5 fL (9.4-12.3); Monocytes Absolute Auto 0.4 X10*3/uL (0.1-1.2); Monocytes Percent Auto 4.9 % (2-11); Neutrophils Absolute Auto 4.6 x10*3/uL (2.0-8.3); Neutrophils Percent Auto 53.6 % (45-73); Platelet Count 211 X10*3/uL (160-400); Red Blood Count 4.36 X10*6/uL (4.20-5.50); Red Cell Distribution Width 14.1 % (11.0-16.0); SCAN SMEAR FLAG 1; White Blood Count 8.5 X10*3/uL (4.8-10.8)
[2024-03-11 11:27] LABS: Amphetamine Screen Urine Not Detected (Not Detect); Barbiturates, Urine Not Detected (Not Detect); Benzodiazepines Screen Urine Not Detected (Not Detect); Buprenorphine Scr Not Detected (Not Detect); Cannabinoid Screen Urine Not Detected (Not Detect); Cocaine Screen Urine Not Detected (Not Detect); Fentanyl, urine Not Detected (Not Detect); Methadone Screen, Urine Not Detected (Not Detect); Opiate Screen Urine Not Detected (Not Detect); Oxycodone Screen Urine Not Detected (Not Detect); Phencyclidine Screen Urine Not Detected (Not Detect)
[2024-03-11 11:37] LABS: COVID-19 Test Negative (Negative); IDNOW Serial# 152EDE1D
[2024-03-11 11:39] LABS: Acetaminophen LAB < 3 mcg/mL (<30); Alanine Aminotransferase 24 U/L (0-31); Albumin Level 3.8 g/dL (3.5-5.0); Alkaline Phosphatase 100 U/L (39-117); Anion Gap 10 (12-20); Aspartate Amino Transferase 21 U/L (5-31); Bilirubin Total 0.3 mg/dL (0.0-1.0); Blood Urea Nitrogen 15 mg/dL (9-16); Calcium 9.7 mg/dL (8.4-10.2); Carbon Dioxide 31 mmol/L (22-29); Chloride 107 mmol/L (96-108); Creatinine Clr Calc Pharmacy 66.8; Estimated Glomerular Filt Rate 58; Ethanol < 10 mg/dL; Glucose Random 120 mg/dL (60-115); Potassium 3.9 mmol/L (3.3-5.1); Salicylate < 5.0 mg/dL (15-30); Sodium 144 mmol/L (135-145); Total Protein 6.4 g/dL (6.5-8.0)
[2024-03-11 11:54] LABS: SLIDE REVIEW VERIFIED
[2024-03-11 16:55] VITALS: BP 131/72; PULSE 85; RESP 18; TEMP 36.4; O2SAT 98
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
[2024-03-11 20:00] VITALS: BP 117/76; PULSE 81; RESP 14; TEMP 36.8; O2SAT 97
[2024-03-11] MEDS: clomiPRAMINE HCl 25 MG CAPSULE 75 MG PO (20:38)
[2024-03-11] MEDS: clonazePAM 0.5 MG TABLET PO (20:39)
[2024-03-11] MEDS: ARIPiprazole 5 MG TABLET PO (20:40)
[2024-03-12] MEDS: Omeprazole 20 MG CAPSULE.DR PO (06:22)
[2024-03-12 07:00] VITALS: BMI 32.2
[2024-03-12 07:25] VITALS: BP 107/68; PULSE 71; RESP 14; TEMP 36.5; O2SAT 99
[2024-03-12] MEDS: clonazePAM 0.5 MG TABLET PO ×2 (08:32→20:48)
[2024-03-12] MEDS: PARoxetine HCL 40 MG TABLET PO (08:32)
[2024-03-12] MEDS: QUEtiapine Fumarate 50 MG TABLET PO (08:32)
[2024-03-12] MEDS: Fluticasone/Umeclidinium/Vilanterol 200/62.5/25 BLST.W.DEV 1 PUFF INHALE (08:38)
[2024-03-12 09:24] LABS: Alanine Aminotransferase 28 U/L (0-31); Albumin Level 4.1 g/dL (3.5-5.0); Alkaline Phosphatase 104 U/L (39-117); Anion Gap 12 (12-20); Aspartate Amino Transferase 23 U/L (5-31); Bilirubin Total 0.4 mg/dL (0.0-1.0); Blood Urea Nitrogen 17 mg/dL (9-16); Calcium 9.6 mg/dL (8.4-10.2); Carbon Dioxide 30 mmol/L (22-29); Chloride 105 mmol/L (96-108); Cholesterol 184 mg/dL (<200); Creatinine Clr Calc Pharmacy 73.7; Estimated Glomerular Filt Rate > 60; Glucose Fasting 109 mg/dL (60-99); HDL Cholesterol 48 mg/dL (>40); LDL Cholesterol Calculated 116 mg/dL (<100); Potassium 3.8 mmol/L (3.3-5.1); Sodium 143 mmol/L (135-145); Total Protein 7.1 g/dL (6.5-8.0); Triglycerides 102 mg/dL (<150)
--- NOTE | 2024-03-12 13:26 | HO.PSYCHPN ---
Subjective Subjective Date of Service: 03/12/24 Reason For Visit: Suicidal ideation Subjective Notes: Conditional Voluntary Healthcare Proxy: No Guardianship: No Interim History: Patient is somewhat sedated intrusive intermittant thoughts she would be better off somewhat less intense seroquel inc klon inc Medication Compliance: Yes Mental Status Exam Mental Status Exam Narrative: Mental Status Exam Narrative: Appearance: Behavior: Casually dressed mild tremor noted psychomotor: Speech: Clear goal-directed Thought proccess logical somewhat hesitant Thought content: Focused on recent stressors feeling overwhelmed anxious at times guilty denies active intrusive thoughts of self-harm Mood: Intensely Anxious dysphoric Affect: Constricted SI: Thoughts to overdose thoughts that she might deserve to HI:denies VH/AH:none Delusions: Insight/judgment: prone to negative thinking patterns in feeling that she is bad and does not deserve to live no clear command hallucinations Memory/cog: Intact gross testing Diagnostics Vital Signs (24Hr): Vital Signs - 24 hr 03/11/24 16:55 03/11/24 20:00 03/12/24 07:25 Temperature 97.6 F 98.2 F 97.7 F Pulse Rate 85 81 71 Respiratory Rate 18 14 14 Blood Pressure 131/72 117/76 107/68 Pulse Oximetry 98 97 99 Oxygen Delivery Method Room Air Room Air Room Air BMI result Body Mass Index 32.2 Labs 03/11/24 11:12 03/12/24 08:58 Labs: Laboratory Results - last 48 hr 03/11/24 03/11/24 03/12/24 10:54 11:12 08:58 WBC 8.5 RBC 4.36 Hgb 13.3 Hct 41.0 MCV 94.0 MCH 30.5 MCHC 32.4 RDW 14.1 Plt Count 211 MPV 11.5 Immature Gran % (Auto) 0.4 Neut % (Auto) 53.6 Lymph % (Auto) 18.4 L Phillips % (Auto) 4.9 Eos % (Auto) 22.2 H Baso % (Auto) 0.5 Lymph # (Auto) 1.6 Phillips # (Auto) 0.4 Eos # (Auto) 1.9 H Baso # (Auto) 0.0 Abs Immat Gran (auto) 0.03 Absolute Neuts (auto) 4.6 Absolute Nucleated RBC 0.000 Nucleated RBC % (auto) 0.0 Smear Tech's Comments VERIFIED Sodium 144 143 Potassium 3.9 3.8 Chloride 107 105 Carbon Dioxide 31 H 30 H Anion Gap 10 L 12 BUN 15 17 H Creatinine 0.96 0.87 Estim Creat Clear Calc 66.8 73.7 Estimated GFR 58 > 60 Random Glucose 120 H Fasting Glucose 109 H Calcium 9.7 D 9.6 Total Bilirubin 0.3 0.4 AST 21 23 ALT 24 28 Alkaline Phosphatase 100 104 Total Protein 6.4 L 7.1 Albumin 3.8 4.1 Triglycerides 102 Cholesterol 184 LDL Cholesterol, Calc 116 H HDL Cholesterol 48 Urine Color Yellow Urine Appearance Clear Urine pH 6.0 Ur Specific [place] 1.020 Urine Protein Negative Urine Glucose (UA) Negative Urine Ketones Negative Urine Blood Negative Urine Nitrite Negative Ur Leukocyte Esterase Negative Urine Test NEGATIVE Salicylates < 5.0 L Urine Opiates Screen Not Detected Ur Buprenorphine Scrn Not Detected Ur Oxycodone Screen Not Detected Urine Methadone Screen Not Detected Urine Fentanyl Screen Not Detected Acetaminophen < 3 Ur Barbiturates Screen Not Detected Ur Phencyclidine Scrn Not Detected Ur Amphetamines Screen Not Detected U Benzodiazepines Scrn Not Detected Urine Cocaine Screen Not Detected U Marijuana (THC) Screen Not Detected Ethyl Alcohol < 10 COVID-19 (THANH) Negative COVID-19 Clin Com See Note Medications Medications Current Medications Acetaminophen (Acetaminophen 325 Mg Tablet) 650 mg PO Q6H PRN PRN Reason: Headache/Pain Mild Scale (1-3) Al Hydroxide/Mg Hydroxide (Magnesium Hydrox/Alum Hydrox 30 Ml Oral.Susp) 30 ml PO Q6H PRN PRN Reason: Heartburn/Nausea Aripiprazole (Aripiprazole 5 Mg Tablet) 5 mg PO BEDTIME [facility] [place] Last Admin: 03/11/24 20:40 Dose: 5 mg Clomipramine HCl (Clomipramine Hcl 25 Mg Capsule) 75 mg PO BEDTIME [facility] [place] Last Admin: 03/11/24 20:38 Dose: 75 mg Clonazepam (Clonazepam 0.5 Mg Tablet) 0.5 mg PO BID [facility] [place] Last Admin: 03/12/24 08:32 Dose: 0.5 mg Fluticasone/Umeclidinium/Vilanterol (Fluticasone/Umeclidinium/Vilanterol 200/62.5/25 Blst.W.Dev) 1 puff INHALE RDAILY [facility] [place] Last Admin: 03/12/24 08:38 Dose: 1 puff Loperamide HCl (Loperamide Hcl 2 Mg Capsule) 2 mg PO Q4H PRN PRN Reason: Diarrhea Magnesium Hydroxide (Milk Of Magnesia 30 Ml Oral.Susp) 30 ml PO DAILY PRN PRN Reason: Constipation Naproxen (Naproxen 250 Mg Tablet) 250 mg PO BID PRN PRN Reason: Pain, Moderate(Pain Scale 4-6) Nicotine Polacrilex (Nicotine Polacrilex 2 Mg Gum) 4 mg BUCCAL Q2H PRN PRN Reason: Nicotine Cravings Omeprazole (Omeprazole 20 Mg Capsule.Dr) 20 mg PO DAILY@0630 [facility] [place] Last Admin: 03/12/24 06:22 Dose: 20 mg Paroxetine HCl (Paroxetine Hcl 40 Mg Tablet) 40 mg PO BEDTIME [facility] Quetiapine Fumarate (Quetiapine Fumarate 25 Mg Tablet) 25 mg PO Q4H PRN PRN Reason: severe anxiety Quetiapine Fumarate 300 mg/ (Quetiapine Fumarate 50 mg) 350 mg PO BEDTIME [facility] [place] Last Admin: 03/11/24 20:39 Dose: 350 mg Quetiapine Fumarate (Quetiapine Fumarate 25 Mg Tablet) 25 mg PO BID@0830,1330 [facility] [place] Trazodone HCl (Trazodone Hcl 50 Mg Tablet) 50 mg PO BEDTIME MRX1 PRN PRN Reason: Insomnia Allergies Allergies Allergy/AdvReac Type Severity Reaction Status Date / Time shellfish derived Allergy Severe DIFFICULTY Verified 03/11/24 10:39 [SHELLFISH DERIVED] BREATHING pseudoephedrine Allergy Intermediate AGITATION Verified 03/11/24 10:39 [From SUDAFED] pregabalin [From Lyrica] Allergy Dizziness Verified 03/11/24 10:39 Assessment & Plan Assessment & Plan (1) Major depression with psychotic features: Status: Acute Code(s): F32.3 - Major depressive disorder, single episode, severe with psychotic features (2) PTSD (post-traumatic stress disorder): Status: Acute Code(s): F43.10 - Post-traumatic stress disorder, unspecified Plan Patient admitted on a conditional voluntary for safety and stabilization in the context of intrusive SI She does appear safe in the setting. Increased eosinophils noted on CBC check clomipramine level increase Seroquel secondary to worsening anxious depression with intrusive suicidal thoughts and psychotic approaching thoughts that at times she deserves not to live associated with church beliefs she is normally able to reality test this. Paxil clomipramine appeared to be at maximum doses she has had ECT in the past she has benefitted from [facility] in the past restart clonazepam 0.5 b.i.d. monitor for over sedation noted history of asthma history of the well 03/13/24 The patient is somewhat flat feeling sedated change Paxil to at bedtime Seroquel 50 mg changed to 25 b.i.d. 350 at bedtime Encouraged CBT regarding catastrophic thinking Patient educated on: diagnosis, medication risk/benefits, therapeutic strategies and medical condition Informed Consent: understands Reason for continued inpatient stay Substantial Risk for: harm to self and rapid decompensation Time Spent With Patient Time: Total time managing care of this patient today ____ minutes.
[2024-03-12 19:45] VITALS: BP 139/66; PULSE 79; RESP 16; TEMP 36.4; O2SAT 96
[2024-03-12] MEDS: clomiPRAMINE HCl 25 MG CAPSULE 75 MG PO (20:46)
[2024-03-12] MEDS: ARIPiprazole 5 MG TABLET PO (20:48)
[2024-03-12] MEDS: NaPROXEN 250 MG TABLET PO (23:59)
[2024-03-13] MEDS: Omeprazole 20 MG CAPSULE.DR PO (06:13)
[2024-03-13 08:00] VITALS: BP 107/67; PULSE 73; RESP 16; TEMP 36.2; O2SAT 98
[2024-03-13] MEDS: clonazePAM 0.5 MG TABLET PO ×2 (08:18→20:57)
[2024-03-13] MEDS: Fluticasone/Umeclidinium/Vilanterol 200/62.5/25 BLST.W.DEV 1 PUFF INHALE (08:18)
[2024-03-13] MEDS: QUEtiapine Fumarate 25 MG TABLET PO ×2 (08:18→13:47)
--- NOTE | 2024-03-13 16:35 | P.PNPSI_ITS ---
Subjective Subjective Date of Service: 03/13/24 Reason For Visit: Suicidal ideation Subjective Notes: Conditional Voluntary Healthcare Proxy: No Guardianship: No Interim History: Patient seen psychiatric follow-up somewhat lethargic on clonazepam 0.5 b.i.d. Seroquel 50 in the morning change to 25 b.i.d. and 0.5 at bedtime and p.r.n. in the morning. The patient is trying to challenge her negative thoughts fear of impulsive self-harm Mental Status Exam Mental Status Exam Narrative: dressed in bath robe- Patient Appearance: Appropriate Patient Orientation: Person, Place, Time and Situation Level of Consciousness: Awake Patient Behavior: Appropriate and Cooperative Mood Description: Anxious Patient Cognition Impaired: No Ability to Follow Directions: Good Speech Pattern: Clear Thought Process: Intact Thought Content: positive for Goal Oriented Judgement: Fair Diagnostics Vital Signs (24Hr): Vital Signs - 24 hr 03/12/24 19:45 03/13/24 08:00 Temperature 97.5 F 97.1 F Pulse Rate 79 73 Respiratory Rate 16 16 Blood Pressure 139/66 107/67 Pulse Oximetry 96 98 Oxygen Delivery Method Room Air Room Air BMI result Body Mass Index 32.2 Labs 03/11/24 11:12 03/12/24 08:58 Labs: Laboratory Results - last 48 hr 03/12/24 08:58 Sodium 143 Potassium 3.8 Chloride 105 Carbon Dioxide 30 H Anion Gap 12 BUN 17 H Creatinine 0.87 Estim Creat Clear Calc 73.7 Estimated GFR > 60 Fasting Glucose 109 H Calcium 9.6 Total Bilirubin 0.4 AST 23 ALT 28 Alkaline Phosphatase 104 Total Protein 7.1 Albumin 4.1 Triglycerides 102 Cholesterol 184 LDL Cholesterol, Calc 116 H HDL Cholesterol 48 Medications Medications Current Medications Acetaminophen (Acetaminophen 325 Mg Tablet) 650 mg PO Q6H PRN PRN Reason: Headache/Pain Mild Scale (1-3) Al Hydroxide/Mg Hydroxide (Magnesium Hydrox/Alum Hydrox 30 Ml Oral.Susp) 30 ml PO Q6H PRN PRN Reason: Heartburn/Nausea Aripiprazole (Aripiprazole 5 Mg Tablet) 5 mg PO BEDTIME [facility] Last Admin: 03/12/24 20:48 Dose: 5 mg Clomipramine HCl (Clomipramine Hcl 25 Mg Capsule) 75 mg PO BEDTIME [facility] Last Admin: 03/12/24 20:46 Dose: 75 mg Clonazepam (Clonazepam 0.5 Mg Tablet) 0.5 mg PO BEDTIME [facility] Clonazepam (Clonazepam 0.5 Mg Tablet) 0.5 mg PO BID PRN PRN Reason: anxiety/restlessness Fluticasone/Umeclidinium/Vilanterol (Fluticasone/Umeclidinium/Vilanterol 200/62.5/25 Blst.W.Dev) 1 puff INHALE RDAILY [facility] Last Admin: 03/13/24 08:18 Dose: 1 puff Loperamide HCl (Loperamide Hcl 2 Mg Capsule) 2 mg PO Q4H PRN PRN Reason: Diarrhea Magnesium Hydroxide (Milk Of Magnesia 30 Ml Oral.Susp) 30 ml PO DAILY PRN PRN Reason: Constipation Naproxen (Naproxen 250 Mg Tablet) 250 mg PO BID PRN PRN Reason: Pain, Moderate(Pain Scale 4-6) Last Admin: 03/12/24 23:59 Dose: 250 mg Nicotine Polacrilex (Nicotine Polacrilex 2 Mg Gum) 4 mg BUCCAL Q2H PRN PRN Reason: Nicotine Cravings Omeprazole (Omeprazole 20 Mg Capsule.Dr) 20 mg PO DAILY@0630 [facility] Last Admin: 03/13/24 06:13 Dose: 20 mg Paroxetine HCl (Paroxetine Hcl 40 Mg Tablet) 40 mg PO BEDTIME [facility] Quetiapine Fumarate (Quetiapine Fumarate 25 Mg Tablet) 25 mg PO Q4H PRN PRN Reason: severe anxiety Quetiapine Fumarate 300 mg/ (Quetiapine Fumarate 50 mg) 350 mg PO BEDTIME [facility] Last Admin: 03/12/24 20:47 Dose: 350 mg Quetiapine Fumarate (Quetiapine Fumarate 25 Mg Tablet) 25 mg PO BID@0830,1330 [facility] Last Admin: 03/13/24 13:47 Dose: 25 mg Trazodone HCl (Trazodone Hcl 50 Mg Tablet) 50 mg PO BEDTIME MRX1 PRN PRN Reason: Insomnia Allergies Allergies Allergy/AdvReac Type Severity Reaction Status Date / Time shellfish derived Allergy Severe DIFFICULTY Verified 03/11/24 10:39 [SHELLFISH DERIVED] BREATHING pseudoephedrine Allergy Intermediate AGITATION Verified 03/11/24 10:39 [From SUDAFED] pregabalin [From Lyrica] Allergy Dizziness Verified 03/11/24 10:39 Assessment & Plan Assessment & Plan (1) Major depression with psychotic features: Status: Acute Code(s): F32.3 - Major depressive disorder, single episode, severe with psychotic features (2) PTSD (post-traumatic stress disorder): Status: Acute Code(s): F43.10 - Post-traumatic stress disorder, unspecified Plan Patient admitted on a conditional voluntary for safety and stabilization in the context of intrusive SI She does appear safe in the setting. Increased eosinophils noted on CBC check clomipramine level increase Seroquel secondary to worsening anxious depression with intrusive suicidal thoughts and psychotic approaching thoughts that at times she deserves not to live associated with muslim beliefs she is normally able to reality test this. Paxil clomipramine appeared to be at maximum doses she has had ECT in the past she has benefitted from [facility] in the past restart clonazepam 0.5 b.i.d. monitor for over sedation noted history of asthma history of the well 03/13/24 The patient is somewhat flat feeling sedated change Paxil to at bedtime Seroquel 50 mg changed to 25 b.i.d. 350 at bedtime Encouraged CBT regarding catastrophic thinking Patient educated on: diagnosis and therapeutic strategies Informed Consent: understands Reason for continued inpatient stay Substantial Risk for: harm to self Time Spent With Patient Time: Total time managing care of this patient today __30__ minutes.
[2024-03-13 19:51] VITALS: BP 134/64; PULSE 77; RESP 16; TEMP 36.6; O2SAT 99
[2024-03-13] MEDS: NaPROXEN 250 MG TABLET PO (20:57)
[2024-03-13] MEDS: ARIPiprazole 5 MG TABLET PO (20:57)
[2024-03-13] MEDS: clomiPRAMINE HCl 25 MG CAPSULE 75 MG PO (20:57)
[2024-03-13] MEDS: PARoxetine HCL 40 MG TABLET PO (20:57)
[2024-03-14] MEDS: clonazePAM 0.5 MG TABLET PO ×2 (02:19→20:45)
[2024-03-14] MEDS: Omeprazole 20 MG CAPSULE.DR PO (06:55)
[2024-03-14 08:00] VITALS: BP 121/60; PULSE 78; RESP 14; TEMP 36.5; O2SAT 97
--- NOTE | 2024-03-14 08:29 | P.PNPSI_ITS ---
Subjective Subjective Date of Service: 03/14/24 Reason For Visit: Suicidal ideation Subjective Notes: Conditional Voluntary Interim History: 68 yo met with bff for over an hour today- we could talk forever Pt reports feeling better with changes to medications- no sedation , maybe some blunting of feeling- but she will take it- denies current si - Medication Compliance: Yes Side effects from medications: No Attending Groups: Yes Review of Systems Acute medical concerns: No Medical Review of Systems: changed Review of Systems: less sedated! Mental Status Exam Mental Status Exam Patient Appearance: Well Grooomed and Rigid Patient Orientation: Person, Place and Situation Level of Consciousness: Awake Patient Behavior: Appropriate Mood Description: Calm Affect Description: Blunted Patient Cognition Impaired: No Ability to Follow Directions: Good Speech Pattern: Clear Abnormal Motor Activity Signs and Symptoms: Muscle Rigidity (some) Judgement: Good Diagnostics Vital Signs (24Hr): Vital Signs - 24 hr 03/13/24 19:51 03/14/24 08:00 Temperature 97.8 F 97.7 F Pulse Rate 77 78 Respiratory Rate 16 14 Blood Pressure 134/64 121/60 Pulse Oximetry 99 97 Oxygen Delivery Method Room Air Room Air BMI result Body Mass Index 32.2 Labs 03/11/24 11:12 03/12/24 08:58 Labs: Laboratory Results - last 48 hr 03/12/24 08:58 Sodium 143 Potassium 3.8 Chloride 105 Carbon Dioxide 30 H Anion Gap 12 BUN 17 H Creatinine 0.87 Estim Creat Clear Calc 73.7 Estimated GFR > 60 Fasting Glucose 109 H Calcium 9.6 Total Bilirubin 0.4 AST 23 ALT 28 Alkaline Phosphatase 104 Total Protein 7.1 Albumin 4.1 Triglycerides 102 Cholesterol 184 LDL Cholesterol, Calc 116 H HDL Cholesterol 48 Medications Medications Current Medications Acetaminophen (Acetaminophen 325 Mg Tablet) 650 mg PO Q6H PRN PRN Reason: Headache/Pain Mild Scale (1-3) Al Hydroxide/Mg Hydroxide (Magnesium Hydrox/Alum Hydrox 30 Ml Oral.Susp) 30 ml PO Q6H PRN PRN Reason: Heartburn/Nausea Aripiprazole (Aripiprazole 5 Mg Tablet) 5 mg PO BEDTIME [facility] Last Admin: 03/13/24 20:57 Dose: 5 mg Clomipramine HCl (Clomipramine Hcl 25 Mg Capsule) 75 mg PO BEDTIME [facility] Last Admin: 03/13/24 20:57 Dose: 75 mg Clonazepam (Clonazepam 0.5 Mg Tablet) 0.5 mg PO BEDTIME [facility] Last Admin: 03/13/24 20:57 Dose: 0.5 mg Clonazepam (Clonazepam 0.5 Mg Tablet) 0.5 mg PO BID PRN PRN Reason: anxiety/restlessness Last Admin: 03/14/24 02:19 Dose: 0.5 mg Fluticasone/Umeclidinium/Vilanterol (Fluticasone/Umeclidinium/Vilanterol 200/62.5/25 Blst.W.Dev) 1 puff INHALE RDAILY [facility] Last Admin: 03/13/24 08:18 Dose: 1 puff Loperamide HCl (Loperamide Hcl 2 Mg Capsule) 2 mg PO Q4H PRN PRN Reason: Diarrhea Magnesium Hydroxide (Milk Of Magnesia 30 Ml Oral.Susp) 30 ml PO DAILY PRN PRN Reason: Constipation Naproxen (Naproxen 250 Mg Tablet) 250 mg PO BID PRN PRN Reason: Pain, Moderate(Pain Scale 4-6) Last Admin: 03/13/24 20:57 Dose: 250 mg Nicotine Polacrilex (Nicotine Polacrilex 2 Mg Gum) 4 mg BUCCAL Q2H PRN PRN Reason: Nicotine Cravings Omeprazole (Omeprazole 20 Mg Capsule.Dr) 20 mg PO DAILY@0630 [facility] Last Admin: 03/14/24 06:55 Dose: 20 mg Paroxetine HCl (Paroxetine Hcl 40 Mg Tablet) 40 mg PO BEDTIME [facility] Last Admin: 03/13/24 20:57 Dose: 40 mg Quetiapine Fumarate (Quetiapine Fumarate 25 Mg Tablet) 25 mg PO Q4H PRN PRN Reason: severe anxiety Quetiapine Fumarate 300 mg/ (Quetiapine Fumarate 50 mg) 350 mg PO BEDTIME [facility] Last Admin: 03/13/24 20:57 Dose: 350 mg Quetiapine Fumarate (Quetiapine Fumarate 25 Mg Tablet) 25 mg PO BID@0830,1330 [facility] Last Admin: 03/13/24 13:47 Dose: 25 mg Trazodone HCl (Trazodone Hcl 50 Mg Tablet) 50 mg PO BEDTIME MRX1 PRN PRN Reason: Insomnia Allergies Allergies Allergy/AdvReac Type Severity Reaction Status Date / Time shellfish derived Allergy Severe DIFFICULTY Verified 03/11/24 10:39 [SHELLFISH DERIVED] BREATHING pseudoephedrine Allergy Intermediate AGITATION Verified 03/11/24 10:39 [From SUDAFED] pregabalin [From Lyrica] Allergy Dizziness Verified 03/11/24 10:39 Assessment & Plan Assessment & Plan (1) Major depression with psychotic features: Status: Acute Code(s): F32.3 - Major depressive disorder, single episode, severe with psychotic features (2) PTSD (post-traumatic stress disorder): Status: Acute Code(s): F43.10 - Post-traumatic stress disorder, unspecified Plan Patient admitted on a conditional voluntary for safety and stabilization in the context of intrusive SI She does appear safe in the setting. Increased eosinophils noted on CBC check clomipramine level increase Seroquel secondary to worsening anxious depression with intrusive suicidal thoughts and psychotic approaching thoughts that at times she deserves not to live associated with congregation beliefs she is normally able to reality test this. Paxil clomipramine appeared to be at maximum doses she has had ECT in the past she [facility] restart clonazepam 0.5 b.i.d. monitor for over sedation noted history of asthma history of the well 03/13/24 The patient is somewhat flat feeling sedated change Paxil to at bedtime Seroquel 50 mg changed to 25 b.i.d. 350 at bedtime Encouraged CBT regarding catastrophic thinking 03/14/24 = CTP improved with switching of medication Patient educated on: medication risk/benefits Informed Consent: understands Reason for continued inpatient stay Substantial Risk for: rapid decompensation Time Spent With Patient Time: Total time managing care of this patient today ____ minutes.
[2024-03-14] MEDS: Fluticasone/Umeclidinium/Vilanterol 200/62.5/25 BLST.W.DEV 1 PUFF INHALE (09:33)
[2024-03-14] MEDS: QUEtiapine Fumarate 25 MG TABLET PO ×2 (09:54→13:36)
[2024-03-14 20:18] VITALS: BP 135/72; PULSE 84; RESP 16; TEMP 36.5; O2SAT 94
[2024-03-14] MEDS: PARoxetine HCL 40 MG TABLET PO (20:45)
[2024-03-14] MEDS: ARIPiprazole 5 MG TABLET PO (20:46)
[2024-03-14] MEDS: clomiPRAMINE HCl 25 MG CAPSULE 75 MG PO (20:46)
[2024-03-14] MEDS: Magnesium Hydrox/Alum Hydrox 30 ML ORAL.SUSP PO (23:35)
[2024-03-15] MEDS: Milk of Magnesia 30 ML ORAL.SUSP PO (03:26)
--- NOTE | 2024-03-15 04:20 | PC.NURSE ---
Pt woke around 0330 c/o feeling gassy, which she attributed to being constipated. Last BM was 03/11. Pt was given MOM per her request. Woke approx. 1 hr later reporting positive effects, stating that she had a BM and the gassiness had resolved.
[2024-03-15] MEDS: Loperamide HCl 2 MG CAPSULE PO ×4 (05:06→22:22)
[2024-03-15] MEDS: Omeprazole 20 MG CAPSULE.DR PO (06:50)
[2024-03-15 08:00] VITALS: BP 116/58; PULSE 82; RESP 16; TEMP 36.4; O2SAT 95
[2024-03-15] MEDS: Fluticasone/Umeclidinium/Vilanterol 200/62.5/25 BLST.W.DEV 1 PUFF INHALE (09:38)
[2024-03-15] MEDS: QUEtiapine Fumarate 25 MG TABLET PO ×2 (09:38→13:59)
--- NOTE | 2024-03-15 11:34 | P.PNPSI_ITS ---
Subjective Subjective Date of Service: 03/15/24 Reason For Visit: Suicidal ideation Subjective Notes: Conditional Voluntary Medical Problems Affecting Mental Status: Yes (co diarrhea after taking MOM - for constipation) Interim History: 68 yo discussing activating ibs after taking mom last pm- wonders about getting cholesteramine today if immodium doesn't do the trick - reporting going every 10 min despite 2 doses of immodium- Sleep ok - energy low- feeling better psychologically still blunted a bit- hoping to go home saturday denying current si Medication Compliance: Yes Side effects from medications: Yes Attending Groups: Intermittent Review of Systems Acute medical concerns: No just ibs above Medical Review of Systems: unchanged Review of Systems: not sedated Mental Status Exam Mental Status Exam Narrative: dressed in bath robe- Patient Appearance: Appropriate Patient Orientation: Person, Place, Time and Situation Level of Consciousness: Awake Patient Behavior: Appropriate and Cooperative Mood Description: Anxious Patient Cognition Impaired: No Ability to Follow Directions: Good Speech Pattern: Clear Thought Process: Intact Thought Content: positive for Goal Oriented Judgement: Fair Diagnostics Vital Signs (24Hr): Vital Signs - 24 hr 03/14/24 20:18 03/15/24 08:00 Temperature 97.7 F 97.5 F Pulse Rate 84 82 Respiratory Rate 16 16 Blood Pressure 135/72 116/58 L Pulse Oximetry 94 95 Oxygen Delivery Method Room Air Room Air BMI result Body Mass Index 32.2 Labs 03/11/24 11:12 03/12/24 08:58 Medications Medications Current Medications Acetaminophen (Acetaminophen 325 Mg Tablet) 650 mg PO Q6H PRN PRN Reason: Headache/Pain Mild Scale (1-3) Al Hydroxide/Mg Hydroxide (Magnesium Hydrox/Alum Hydrox 30 Ml Oral.Susp) 30 ml PO Q6H PRN PRN Reason: Heartburn/Nausea Last Admin: 03/14/24 23:35 Dose: 30 ml Aripiprazole (Aripiprazole 5 Mg Tablet) 5 mg PO BEDTIME HEATHER Last Admin: 03/14/24 20:46 Dose: 5 mg Clomipramine HCl (Clomipramine Hcl 25 Mg Capsule) 75 mg PO BEDTIME HEATHER Last Admin: 03/14/24 20:46 Dose: 75 mg Clonazepam (Clonazepam 0.5 Mg Tablet) 0.5 mg PO BEDTIME HEATHER Last Admin: 03/14/24 20:45 Dose: 0.5 mg Clonazepam (Clonazepam 0.5 Mg Tablet) 0.5 mg PO BID PRN PRN Reason: anxiety/restlessness Last Admin: 03/14/24 02:19 Dose: 0.5 mg Fluticasone/Umeclidinium/Vilanterol (Fluticasone/Umeclidinium/Vilanterol 200/62.5/25 Blst.W.Dev) 1 puff INHALE RDAILY [facility] Last Admin: 03/15/24 09:38 Dose: 1 puff Loperamide HCl (Loperamide Hcl 2 Mg Capsule) 2 mg PO Q4H PRN PRN Reason: Diarrhea Last Admin: 03/15/24 09:37 Dose: 2 mg Magnesium Hydroxide (Milk Of Magnesia 30 Ml Oral.Susp) 30 ml PO DAILY PRN PRN Reason: Constipation Last Admin: 03/15/24 03:26 Dose: 30 ml Naproxen (Naproxen 250 Mg Tablet) 250 mg PO BID PRN PRN Reason: Pain, Moderate(Pain Scale 4-6) Last Admin: 03/13/24 20:57 Dose: 250 mg Nicotine Polacrilex (Nicotine Polacrilex 2 Mg Gum) 4 mg BUCCAL Q2H PRN PRN Reason: Nicotine Cravings Omeprazole (Omeprazole 20 Mg Capsule.Dr) 20 mg PO DAILY@0630 [facility] Last Admin: 03/15/24 06:50 Dose: 20 mg Paroxetine HCl (Paroxetine Hcl 40 Mg Tablet) 40 mg PO BEDTIME [facility] Last Admin: 03/14/24 20:45 Dose: 40 mg Quetiapine Fumarate (Quetiapine Fumarate 25 Mg Tablet) 25 mg PO Q4H PRN PRN Reason: severe anxiety Quetiapine Fumarate 300 mg/ (Quetiapine Fumarate 50 mg) 350 mg PO BEDTIME [facility] Last Admin: 03/14/24 20:45 Dose: 350 mg Quetiapine Fumarate (Quetiapine Fumarate 25 Mg Tablet) 25 mg PO BID@0830,1330 [facility] Last Admin: 03/15/24 09:38 Dose: 25 mg Trazodone HCl (Trazodone Hcl 50 Mg Tablet) 50 mg PO BEDTIME MRX1 PRN PRN Reason: Insomnia Allergies Allergies Allergy/AdvReac Type Severity Reaction Status Date / Time shellfish derived Allergy Severe DIFFICULTY Verified 03/11/24 10:39 [SHELLFISH DERIVED] BREATHING pseudoephedrine Allergy Intermediate AGITATION Verified 03/11/24 10:39 [From SUDAFED] pregabalin [From Lyrica] Allergy Dizziness Verified 03/11/24 10:39 Assessment & Plan Assessment & Plan (1) Major depression with psychotic features: Status: Acute Code(s): F32.3 - Major depressive disorder, single episode, severe with psychotic features (2) PTSD (post-traumatic stress disorder): Status: Acute Code(s): F43.10 - Post-traumatic stress disorder, unspecified Plan Patient admitted on a conditional voluntary for safety and stabilization in the context of intrusive SI She does appear safe in the setting. Increased eosinophils noted on CBC check clomipramine level increase Seroquel secondary to worsening anxious depression with intrusive suicidal thoughts and psychotic approaching thoughts that at times she deserves not to live associated with anabaptist beliefs she is normally able to reality test this. Paxil clomipramine appeared to be at maximum doses she has had ECT in the past she has benefitted from partial hospital in the past restart clonazepam 0.5 b.i.d. monitor for over sedation noted history of asthma history of the well 03/13/24 The patient is somewhat flat feeling sedated change Paxil to at bedtime Seroquel 50 mg changed to 25 b.i.d. 350 at bedtime Encouraged CBT regarding catastrophic thinking 03/14/24 = CTP improved with switching of medication 03/15- CTP, wrote for cholesteramine x1 Patient educated on: medication risk/benefits and other Informed Consent: understands Reason for continued inpatient stay Substantial Risk for: rapid decompensation Time Spent With Patient Time: Total time managing care of this patient today ____ minutes.
[2024-03-15 20:35] VITALS: BP 114/67; PULSE 80; RESP 18; TEMP 36.3; O2SAT 97
[2024-03-15] MEDS: PARoxetine HCL 40 MG TABLET PO (20:37)
[2024-03-15] MEDS: clonazePAM 0.5 MG TABLET PO (20:38)
[2024-03-15] MEDS: clomiPRAMINE HCl 25 MG CAPSULE 75 MG PO (20:38)
[2024-03-15] MEDS: ARIPiprazole 5 MG TABLET PO (20:39)
[2024-03-16] MEDS: Omeprazole 20 MG CAPSULE.DR PO (06:11)
[2024-03-16 07:56] VITALS: BP 122/56; PULSE 81; RESP 18; TEMP 36.4; O2SAT 94
[2024-03-16] MEDS: Fluticasone/Umeclidinium/Vilanterol 200/62.5/25 BLST.W.DEV 1 PUFF INHALE (08:40)
[2024-03-16] MEDS: QUEtiapine Fumarate 25 MG TABLET PO (08:40)
--- NOTE | 2024-03-16 14:15 | P.PNPSI_ITS ---
Subjective Subjective Date of Service: 03/16/24 Reason For Visit: Suicidal ideation Subjective Notes: Conditional Voluntary Interim History: pt trying to challenge obsessional negativity was lethargic on am seroquel Mental Status Exam Mental Status Exam Patient Appearance: Appropriate Patient Orientation: Person, Place, Time and Situation Level of Consciousness: Awake Patient Behavior: Appropriate and Cooperative Mood Description: Anxious Affect Description: Withdrawn and Apprehensive Patient Cognition Impaired: No Ability to Follow Directions: Good Speech Pattern: Clear Memory Description: Intact Thought Process: Intact Thought Content: positive for Goal Oriented Depressive Symptoms: Increased Anxiety, Diff. Making Decisions, Feelings of Guilt and Increased Fatigue Judgement: Fair Judgement and Insight: improving judgement denies active si Diagnostics Vital Signs (24Hr): Vital Signs - 24 hr 03/15/24 20:35 03/16/24 07:56 Temperature 97.3 F 97.5 F Pulse Rate 80 81 Respiratory Rate 18 18 Blood Pressure 114/67 122/56 L Pulse Oximetry 97 94 Oxygen Delivery Method Room Air Room Air BMI result Body Mass Index 32.2 Labs 03/11/24 11:12 03/12/24 08:58 Medications Medications Current Medications Acetaminophen (Acetaminophen 325 Mg Tablet) 650 mg PO Q6H PRN PRN Reason: Headache/Pain Mild Scale (1-3) Al Hydroxide/Mg Hydroxide (Magnesium Hydrox/Alum Hydrox 30 Ml Oral.Susp) 30 ml PO Q6H PRN PRN Reason: Heartburn/Nausea Last Admin: 03/14/24 23:35 Dose: 30 ml Aripiprazole (Aripiprazole 5 Mg Tablet) 5 mg PO BEDTIME HEATHER Last Admin: 03/15/24 20:39 Dose: 5 mg Clomipramine HCl (Clomipramine Hcl 25 Mg Capsule) 75 mg PO BEDTIME HEATHER Last Admin: 03/15/24 20:38 Dose: 75 mg Clonazepam (Clonazepam 0.5 Mg Tablet) 0.5 mg PO BEDTIME HEATHER Last Admin: 03/15/24 20:38 Dose: 0.5 mg Clonazepam (Clonazepam 0.5 Mg Tablet) 0.5 mg PO BID PRN PRN Reason: anxiety/restlessness Last Admin: 03/14/24 02:19 Dose: 0.5 mg Fluticasone/Umeclidinium/Vilanterol (Fluticasone/Umeclidinium/Vilanterol 200/62.5/25 Blst.W.Dev) 1 puff INHALE RDAILY [facility] Last Admin: 03/16/24 08:40 Dose: 1 puff Loperamide HCl (Loperamide Hcl 2 Mg Capsule) 2 mg PO Q4H PRN PRN Reason: Diarrhea Last Admin: 03/15/24 22:22 Dose: 2 mg Magnesium Hydroxide (Milk Of Magnesia 30 Ml Oral.Susp) 30 ml PO DAILY PRN PRN Reason: Constipation Last Admin: 03/15/24 03:26 Dose: 30 ml Naproxen (Naproxen 250 Mg Tablet) 250 mg PO BID PRN PRN Reason: Pain, Moderate(Pain Scale 4-6) Last Admin: 03/13/24 20:57 Dose: 250 mg Nicotine Polacrilex (Nicotine Polacrilex 2 Mg Gum) 4 mg BUCCAL Q2H PRN PRN Reason: Nicotine Cravings Omeprazole (Omeprazole 20 Mg Capsule.Dr) 20 mg PO DAILY@0630 [facility] Last Admin: 03/16/24 06:11 Dose: 20 mg Paroxetine HCl (Paroxetine Hcl 40 Mg Tablet) 40 mg PO BEDTIME [facility] Last Admin: 03/15/24 20:37 Dose: 40 mg Quetiapine Fumarate (Quetiapine Fumarate 25 Mg Tablet) 25 mg PO Q4H PRN PRN Reason: severe anxiety Quetiapine Fumarate (Quetiapine Fumarate 400 Mg Tablet) 400 mg PO BEDTIME HEATHER Trazodone HCl (Trazodone Hcl 50 Mg Tablet) 50 mg PO BEDTIME MRX1 PRN PRN Reason: Insomnia Allergies Allergies Allergy/AdvReac Type Severity Reaction Status Date / Time shellfish derived Allergy Severe DIFFICULTY Verified 03/11/24 10:39 [SHELLFISH DERIVED] BREATHING pseudoephedrine Allergy Intermediate AGITATION Verified 03/11/24 10:39 [From SUDAFED] pregabalin [From Lyrica] Allergy Dizziness Verified 03/11/24 10:39 Assessment & Plan Assessment & Plan (1) Major depression with psychotic features: Status: Acute Code(s): F32.3 - Major depressive disorder, single episode, severe with psychotic features (2) PTSD (post-traumatic stress disorder): Status: Acute Code(s): F43.10 - Post-traumatic stress disorder, unspecified Plan Patient admitted on a conditional voluntary for safety and stabilization in the context of intrusive SI She does appear safe in the setting. Increased eosinophils noted on CBC check clomipramine level increase Seroquel secondary to worsening anxious depression with intrusive suicidal thoughts and psychotic approaching thoughts that at times she deserves not to live associated with tenriism beliefs she is normally able to reality test this. Paxil clomipramine appeared to be at maximum doses she has had ECT in the past she has benefitted from [facility] in the past restart clonazepam 0.5 b.i.d. monitor for over sedation noted history of asthma history of the well 03/13/24 The patient is somewhat flat feeling sedated change Paxil to at bedtime Seroquel 50 mg changed to 25 b.i.d. 350 at bedtime Encouraged CBT regarding catastrophic thinking 03/16/24 change seroquel to 400 mg hs klonapin 0.5 hs am d/c remains fearful of self harm outside of the hosp discussed issues related to outpt tx Patient educated on: diagnosis, medication risk/benefits and therapeutic strategies Informed Consent: further education needed Reason for continued inpatient stay Substantial Risk for: harm to self Time Spent With Patient Time: Total time managing care of this patient today __30__ minutes.
[2024-03-16] MEDS: NaPROXEN 250 MG TABLET PO (19:01)
[2024-03-16 20:10] VITALS: BP 131/66; PULSE 84; RESP 16; TEMP 36.4; O2SAT 97
[2024-03-16] MEDS: clomiPRAMINE HCl 25 MG CAPSULE 75 MG PO (20:23)
[2024-03-16] MEDS: clonazePAM 0.5 MG TABLET PO (20:24)
[2024-03-16] MEDS: PARoxetine HCL 40 MG TABLET PO (20:24)
[2024-03-16] MEDS: ARIPiprazole 5 MG TABLET PO (20:24)
[2024-03-16] MEDS: QUEtiapine Fumarate 400 MG TABLET PO (20:25)
[2024-03-17 07:05] VITALS: BP 135/61; PULSE 77; RESP 14; TEMP 36.3; O2SAT 95
[2024-03-17] MEDS: Omeprazole 20 MG CAPSULE.DR PO (10:25)
[2024-03-17] MEDS: Fluticasone/Umeclidinium/Vilanterol 200/62.5/25 BLST.W.DEV 1 PUFF INHALE (10:49)
--- NOTE | 2024-03-17 14:32 | HO.PSYCHPN ---
Subjective Subjective Date of Service: 03/17/24 Reason For Visit: Suicidal ideation Subjective Notes: Conditional Voluntary Healthcare Proxy: No Guardianship: No Interim History: Patient seen in psychiatric follow-up patient is stabilizing on increased doses of Seroquel will check Anafranil level benzodiazepine has been restarted denies active self-harming thoughts some anxiety about returning home. Barium swallow to be completed 03/17/2024 has had some increasing shortness breath has been seeing pulmonology Dr. Guzman and he had wanted a barium swallow to see if this may be a contributing factor to findings on CT scan of the chest. It is also contributing factor to patient's anxiety Mental Status Exam Mental Status Exam Patient Appearance: Appropriate Patient Orientation: Person, Place, Time and Situation Level of Consciousness: Awake Patient Behavior: Appropriate and Cooperative Mood Description: Anxious Affect Description: Withdrawn and Apprehensive Patient Cognition Impaired: No Ability to Follow Directions: Good Speech Pattern: Clear Memory Description: Intact Thought Process: Intact Thought Content: positive for Goal Oriented Depressive Symptoms: Increased Anxiety, Diff. Making Decisions, Feelings of Guilt and Increased Fatigue Judgement: Good Judgement and Insight: improving judgement denies active si guilt more manageable Diagnostics Vital Signs (24Hr): Vital Signs - 24 hr 03/16/24 20:10 03/17/24 07:05 Temperature 97.6 F 97.3 F Pulse Rate 84 77 Respiratory Rate 16 14 Blood Pressure 131/66 135/61 Pulse Oximetry 97 95 Oxygen Delivery Method Room Air Room Air BMI result Body Mass Index 32.2 Labs 03/11/24 11:12 03/12/24 08:58 Labs: Laboratory Results - last 48 hr 03/12/24 08:58 Clomipramine TNP Desmethylclomipramine TNP Clomipramine&N-Desclom TNP Medications Medications Current Medications Acetaminophen (Acetaminophen 325 Mg Tablet) 650 mg PO Q6H PRN PRN Reason: Headache/Pain Mild Scale (1-3) Al Hydroxide/Mg Hydroxide (Magnesium Hydrox/Alum Hydrox 30 Ml Oral.Susp) 30 ml PO Q6H PRN PRN Reason: Heartburn/Nausea Last Admin: 03/14/24 23:35 Dose: 30 ml Aripiprazole (Aripiprazole 5 Mg Tablet) 5 mg PO BEDTIME HEATHER Last Admin: 03/16/24 20:24 Dose: 5 mg Clomipramine HCl (Clomipramine Hcl 25 Mg Capsule) 75 mg PO BEDTIME [facility] Last Admin: 03/16/24 20:23 Dose: 75 mg Clonazepam (Clonazepam 0.5 Mg Tablet) 0.5 mg PO BEDTIME [facility] Last Admin: 03/16/24 20:24 Dose: 0.5 mg Clonazepam (Clonazepam 0.5 Mg Tablet) 0.5 mg PO BID PRN PRN Reason: anxiety/restlessness Last Admin: 03/14/24 02:19 Dose: 0.5 mg Fluticasone/Umeclidinium/Vilanterol (Fluticasone/Umeclidinium/Vilanterol 200/62.5/25 Blst.W.Dev) 1 puff INHALE RDAILY [facility] Last Admin: 03/17/24 10:49 Dose: 1 puff Loperamide HCl (Loperamide Hcl 2 Mg Capsule) 2 mg PO Q4H PRN PRN Reason: Diarrhea Last Admin: 03/15/24 22:22 Dose: 2 mg Magnesium Hydroxide (Milk Of Magnesia 30 Ml Oral.Susp) 30 ml PO DAILY PRN PRN Reason: Constipation Last Admin: 03/15/24 03:26 Dose: 30 ml Naproxen (Naproxen 250 Mg Tablet) 250 mg PO BID PRN PRN Reason: Pain, Moderate(Pain Scale 4-6) Last Admin: 03/16/24 19:01 Dose: 250 mg Nicotine Polacrilex (Nicotine Polacrilex 2 Mg Gum) 4 mg BUCCAL Q2H PRN PRN Reason: Nicotine Cravings Omeprazole (Omeprazole 20 Mg Capsule.Dr) 20 mg PO DAILY@0630 [facility] Last Admin: 03/17/24 10:25 Dose: 20 mg Paroxetine HCl (Paroxetine Hcl 40 Mg Tablet) 40 mg PO BEDTIME [facility] Last Admin: 03/16/24 20:24 Dose: 40 mg Quetiapine Fumarate (Quetiapine Fumarate 25 Mg Tablet) 25 mg PO Q4H PRN PRN Reason: severe anxiety Quetiapine Fumarate (Quetiapine Fumarate 400 Mg Tablet) 400 mg PO BEDTIME [facility] Last Admin: 03/16/24 20:25 Dose: 400 mg Trazodone HCl (Trazodone Hcl 50 Mg Tablet) 50 mg PO BEDTIME MRX1 PRN PRN Reason: Insomnia Allergies Allergies Allergy/AdvReac Type Severity Reaction Status Date / Time shellfish derived Allergy Severe DIFFICULTY Verified 03/11/24 10:39 [SHELLFISH DERIVED] BREATHING pseudoephedrine Allergy Intermediate AGITATION Verified 03/11/24 10:39 [From SUDAFED] pregabalin [From Lyrica] Allergy Dizziness Verified 03/11/24 10:39 Assessment & Plan Assessment & Plan (1) Major depression with psychotic features: Status: Resolved Code(s): F32.3 - Major depressive disorder, single episode, severe with psychotic features (2) PTSD (post-traumatic stress disorder): Status: Acute Code(s): F43.10 - Post-traumatic stress disorder, unspecified Plan Patient admitted on a conditional voluntary for safety and stabilization in the context of intrusive SI She does appear safe in the setting. Increased eosinophils noted on CBC check clomipramine level increase Seroquel secondary to worsening anxious depression with intrusive suicidal thoughts and psychotic approaching thoughts that at times she deserves not to live associated with nondenominational beliefs she is normally able to reality test this. Paxil clomipramine appeared to be at maximum doses she has had ECT in the past she has benefitted from partial hospital in the past restart clonazepam 0.5 b.i.d. monitor for over sedation noted history of asthma history of the well 03/13/24 The patient is somewhat flat feeling sedated change Paxil to at bedtime Seroquel 50 mg changed to 25 b.i.d. 350 at bedtime Encouraged CBT regarding catastrophic thinking 03/16/24 change seroquel to 400 mg hs klonapin 0.5 hs am d/c remains fearful of self harm outside of the hosp discussed issues related to outpt tx 03/17/2024 Patient with improving mood hopeful that barium swallow might be helpful in further understanding her shortness breath states feels stable for discharge tomorrow will medical follow-up she is feeling less guilty safer and will continue in ongoing psychotherapy be has a follow-up appointment for partial hospital schedule for when she gets back Patient educated on: medication risk/benefits and medical condition Informed Consent: understands Reason for continued inpatient stay Substantial Risk for: harm to self and rapid decompensation Time Spent With Patient Time: Total time managing care of this patient today _25___ minutes.
[2024-03-17 20:00] VITALS: BP 119/66; PULSE 81; RESP 14; TEMP 36.5; O2SAT 98
[2024-03-17] MEDS: clomiPRAMINE HCl 25 MG CAPSULE 75 MG PO (20:02)
[2024-03-17] MEDS: NaPROXEN 250 MG TABLET PO (20:03)
[2024-03-17] MEDS: ARIPiprazole 5 MG TABLET PO (20:03)
[2024-03-17] MEDS: clonazePAM 0.5 MG TABLET PO (20:03)
[2024-03-17] MEDS: QUEtiapine Fumarate 400 MG TABLET PO (20:03)
[2024-03-17] MEDS: PARoxetine HCL 40 MG TABLET PO (20:03)
[2024-03-18] MEDS: Omeprazole 20 MG CAPSULE.DR PO (06:54)
[2024-03-18 07:27] VITALS: BP 126/58; PULSE 81; RESP 16; TEMP 36.4; O2SAT 97
[2024-03-18] MEDS: Fluticasone/Umeclidinium/Vilanterol 200/62.5/25 BLST.W.DEV 1 PUFF INHALE (08:34)
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
[2024-03-22 04:49] LABS: Desmethylclomipramine 339 mcg/L (150-350)
[2024-03-23 07:53] LABS: Clomipramine 270 mcg/L (50-250)
[2024-03-23 07:55] LABS: Clomipramine + Desmethylclom 609 mcg/L (200-600)
== END 2024-03-18 11:00 | disposition home or self-care (01) | DRG 885 ==
LOC: HO.ED 12:36 → HO.PADLT16 15:07
PROVIDERS: Physician Assistant Medical; Admitting Provider Registered Nurse; Emergency Provider Emergency Medicine; PCP Nurse Practitioner Family; Responsible Provider Registered Nurse; Visit Provider Psychiatry & Neurology Psychiatry
DX: F32.3 Major depressive disorder, single episode, severe with psychotic features (principal); R45.851 Suicidal ideations; K21.9 Gastro-esophageal reflux disease without esophagitis; F43.10 Post-traumatic stress disorder, unspecified; Z20.822 Contact with and (suspected) exposure to COVID-19; Z79.51 Long term (current) use of inhaled steroids; Z79.899 Other long term (current) drug therapy
CPT/HCPCS: 36415; 74221; 80053; 80061; 80143; 80179; 80307; 80335; 81003; 81025; 85025; 87635; 93005; 99285; S9485

== ENCOUNTER → 2024-03-11 10:44 | Outpatient (BNV) | payer MEDICARE, SELFPAY | PROVIDERS: Emergency Provider Emergency Medicine; PCP Nurse Practitioner Family; Visit Provider Internal Medicine Cardiovascular Disease | DX: R94.31 Abnormal electrocardiogram [ECG] [EKG] (principal) | CPT/HCPCS: 93010 ==

== ENCOUNTER 2024-03-11 14:58 | Outpatient (BNV) | payer MEDICARE, SELFPAY | END 2024-03-17 09:30 | PROVIDERS: Admitting Provider Registered Nurse; Emergency Provider Emergency Medicine; PCP Nurse Practitioner Family; Responsible Provider Registered Nurse; Visit Provider Physician Assistant Surgical | DX: R49.0 Dysphonia (principal) | CPT/HCPCS: 74246 ==

== ENCOUNTER → 2024-03-11 14:58 | Outpatient (BNV) | payer MEDICARE, SELFPAY | PROVIDERS: Admitting Provider Registered Nurse; Emergency Provider Emergency Medicine; PCP Nurse Practitioner Family; Responsible Provider Registered Nurse; Visit Provider Psychiatry & Neurology Psychiatry | DX: F32.3 Major depressive disorder, single episode, severe with psychotic features (principal); F43.11 Post-traumatic stress disorder, acute | CPT/HCPCS: 90792; 99232; 99239 ==

== ENCOUNTER 2024-03-23 12:00 | Outpatient (AMB) | payer MEDICARE, SELFPAY ==
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
== END 2024-03-23 12:28 | disposition home or self-care (01) ==
LOC: HO.HOP 12:00
PROVIDERS: PCP Nurse Practitioner Family; Visit Provider Psychiatry & Neurology Psychiatry
DX: F43.10 Post-traumatic stress disorder, unspecified (principal); F33.2 Major depressive disorder, recurrent severe without psychotic features; R93.3 Abnormal findings on diagnostic imaging of other parts of digestive tract
CPT/HCPCS: 90833; 99213

== ENCOUNTER → 2024-03-23 12:00 | Outpatient (BNVA) | payer MEDICARE, SELFPAY | PROVIDERS: PCP Nurse Practitioner Family; Visit Provider Psychiatry & Neurology Psychiatry | DX: F43.10 Post-traumatic stress disorder, unspecified (principal); F33.2 Major depressive disorder, recurrent severe without psychotic features; R93.3 Abnormal findings on diagnostic imaging of other parts of digestive tract | CPT/HCPCS: 99212 ==

== ENCOUNTER 2024-04-21 08:00 | Outpatient (RCR) | payer MEDICARE, SELFPAY ==
[2024-04-08 12:01] VITALS: BP 132/78; PULSE 80; TEMP 36.3
[2024-04-08 12:05] VITALS: BMI 32.7
--- NOTE | 2024-04-08 13:08 | PC.ADMIT ---
Patient is a 68 year old female who was referred to PHP by [facility] inpatient unit where she was admitted from 03/11-03/18/24 secondary to SI with plan to overdose on medications. At that time patient struggled with increased depression and anxiety sxs. Patient reports stresses include mother in law having a stroke and communication issue with her . Patient reports that she adult son and daughter along with her are on the autism spectrum. Patient currently presents with anxious mood and affect. She is alert and oriented x4. Calm and cooperative. Thoughts are logical and clear. She denied SI or thoughts to harm herself. She was given a copy of her safety plan if needed. Denied any current or past history of substance use. Patient has attended PHP in the past and finds it helpful with continued stabilizing her mood. Medications reconciled with patient and D/C list from [facility] inpatient unit. Patient reports she takes medications as prescribed. She also reports she takes Lorazepam 1mg if needed once time during the day for panic attacks. Stated she uses this about once or twice a month and does not use this together with Clonazepam. Dr Williamson is aware.
--- NOTE | 2024-04-09 15:58 | HO.PHP ---
Pt's case has been opened and review in treatment team.
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
--- NOTE | 2024-04-10 15:51 | HO.PHP ---
Referral for OP therapist placed, faxed to [facility] on 04/10 at 3:40pm
--- NOTE | 2024-04-21 23:49 | HO.PHPPROGNO ---
Subjective Subjective Date of Service: 04/21/24 Reason For Visit: MDD,PTSD Interim History: Patient seen for follow-up, anticipating discharge at the end of program today.? She presents as bright and upbeat today. She reports feeling pretty good and says she is surprised by not feeling as anxious as she usually does on her discharge day. . She says her has been up at the [facility] [place] this week so no problems at home, things have been great . Her sleep has been very good, sleeping through the night. She still feels jittery, which has been a longer term problem and points out the jaw tremor which she associates with antipsychotic medications which she says is bothersome to her and causes her to feel self conscious. She reports it being more noticable with increases with the dose of Seroquel and Abilify and relays some symptoms of parkinsonism from NLs. She does not believe there has been any mention of PD. She has not been tried on a beta yojana for this; she does have asthma, so agrees to a trial of atenolol to see if this can mitigate some of the tremulousness and anxiety without causing acute bronchoconstrx. Reports no other acute issues or concerns. Medication compliant, medications well-tolerated. Denies any adverse effects.? Mood is good .? Denies any hopelessness or SI. Denies thoughts of harming self or others at this time. Denies any aggressive ideation or HI. Denies any paranoia or AH or VH. Sleep, appetite, energy stable. Medication Compliance: Yes Side effects from medications: No Attending Groups: Yes Review of Systems Acute medical concerns: No Mental Status Exam Mental Status Exam Narrative: Alert, oriented, in no acute distress. Calm, cooperative, engaged. No psychomotor agitation or neurovegetative retardation. Eye contact maintained. Mood anxious, affect variable, brighter than expected, mood congruent. Speech normal. Thought process linear, coherent. Thought content related to stressors, transient helplessness, hopelessness but denies any SI, intention, urge or plan.? No aggressive ideation or HI. No paranoia or delusional content elicited. No evidence of psychosis. Insight and judgment fair but adequate. Diagnostics Vital Signs (24Hr): BMI result Body Mass Index 32.7 Assessment & Plan Assessment & Plan (1) Depression, major, severe recurrence: Status: Resolved Code(s): F33.2 - Major depressive disorder, recurrent severe without psychotic features (2) OCD (obsessive compulsive disorder): Status: Acute Code(s): F42.9 - Obsessive-compulsive disorder, unspecified (3) PTSD (post-traumatic stress disorder): Status: Acute Code(s): F43.10 - Post-traumatic stress disorder, unspecified Plan Discharge from [facility] Continue regular medications Refills sent to pharmacy Will defer further medication management to outpatient provider *Safety plan reviewed *Discharge diagnoses, treatment course, discharge plan have been reviewed with patient (including medication regime, medication management, potential side effects) as well as treatment rationale were also revisited *Discharge paperwork signed and given to patient, copy sent for scanning to chart Patient educated on: diagnosis and medication risk/benefits Informed Consent: understands Reason for contiued partial hosp. stay Substantial Risk for: stable for discharge Certification I certify that partial hospital treatment is medically necessary due to the symptoms and problems resulting from the patient's mental illness and the failure to treat the patient at the partial hospital level of care would likely result in the patient requiring inpatient psychiatric care which could not be prevented at a less intensive level of care. Total time managing care of this patient today ___30_ minutes. Discharge Plan Discharge Attending provider: Clotilde Brewer Medications: New quetiapine 200 mg tablet 400 mg PO BEDTIME Qty: 28 0RF atenolol 25 mg tablet 12.5 - 25 mg PO BID PRN (Reason: anxiety) Qty: 20 0RF Continued paroxetine HCl 40 mg tablet 40 mg PO BEDTIME Qty: 90 1RF Rx Instructions: Patient stated she takes at Bedtime. lorazepam 1 mg tablet 1 mg PO DAILY PRN (Reason: Panic Attack(S)) Patient Comments: Confirmed with Dr. Williamson and patient. clomipramine 25 mg capsule 75 mg PO BEDTIME naproxen 500 mg tablet 500 mg PO BID Patient Comments: Patient takes PRN. aripiprazole 5 mg tablet 5 mg PO BEDTIME Patient Comments: Patient takes at HS. omeprazole magnesium [Prilosec OTC] 20 mg Tablet,Delayed Release (Dr/Ec) 20 mg PO BID Patient Comments: Patient reports her PCP increased to BID. Trelegy Ellipta 200-62.5-25 mcg Blister With Device 1 inh inhalation RDAILY 30 Days Qty: 1 0RF Discontinued quetiapine 100 mg tablet 400 mg PO BEDTIME 30 Days Qty: 120 0RF No Action quetiapine 25 mg tablet 25 mg PO BID PRN (Reason: agitation/racing thoughts) Qty: 90 2RF Rx Instructions: may use 2 x day for agitation/racing thoughts clonazepam 0.5 mg tablet 0.5 mg PO BEDTIME Qty: 1 0RF Rx Instructions: take 1 tab bedtime may take additional 1 tab daily as needed for panic/anxiety Stand Alone Forms: Patient Portal Discharge page Patient Education: Depression (DC) Print Language: Frisian
== END 2024-04-21 23:59 | disposition home or self-care (01) ==
LOC: HO.PHPA 08:00
PROVIDERS: Visit Provider Psychiatry & Neurology Psychiatry
DX: F33.2 Major depressive disorder, recurrent severe without psychotic features (principal); F43.10 Post-traumatic stress disorder, unspecified; F42.9 Obsessive-compulsive disorder, unspecified
CPT/HCPCS: 90791; 90853

== ENCOUNTER 2024-05-19 13:53 | Outpatient (AMB) | payer MEDICARE, SELFPAY ==
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
== END 2024-05-19 16:59 | disposition home or self-care (01) ==
LOC: HO.HOP 13:53
PROVIDERS: Visit Provider Psychiatry & Neurology Psychiatry
DX: F43.10 Post-traumatic stress disorder, unspecified (principal); F42.9 Obsessive-compulsive disorder, unspecified; F33.42 Major depressive disorder, recurrent, in full remission
CPT/HCPCS: 90833; 99213

== ENCOUNTER 2024-05-19 13:53 | Outpatient (REF) | payer MEDICARE, SELFPAY ==
[2024-05-19 15:13] LABS: Estimated Average Glucose 108 mg/dL; Hemoglobin A1c % 5.4 % (<6.0)
== END 2024-05-19 13:54 | disposition home or self-care (01) ==
LOC: HO.LAB 13:53
PROVIDERS: Visit Provider Psychiatry & Neurology Psychiatry
DX: F33.42 Major depressive disorder, recurrent, in full remission (principal); F43.10 Post-traumatic stress disorder, unspecified; R73.01 Impaired fasting glucose; F42.9 Obsessive-compulsive disorder, unspecified
CPT/HCPCS: 36415; 83036; 99212

== ENCOUNTER 2024-07-23 11:27 | Outpatient (AMB) | payer MEDICARE, SELFPAY ==
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
== END 2024-07-23 12:10 | disposition home or self-care (01) ==
LOC: HO.HOP 11:27
PROVIDERS: PCP Nurse Practitioner Family; Visit Provider Psychiatry & Neurology Psychiatry
DX: F42.9 Obsessive-compulsive disorder, unspecified (principal); F43.10 Post-traumatic stress disorder, unspecified; F33.42 Major depressive disorder, recurrent, in full remission
CPT/HCPCS: 90833; 99213

== ENCOUNTER → 2024-07-23 11:27 | Outpatient (BNVA) | payer MEDICARE, SELFPAY | PROVIDERS: PCP Nurse Practitioner Family; Visit Provider Psychiatry & Neurology Psychiatry | DX: F42.9 Obsessive-compulsive disorder, unspecified (principal); F43.10 Post-traumatic stress disorder, unspecified; F33.42 Major depressive disorder, recurrent, in full remission; Z62.810 Personal history of physical and sexual abuse in childhood | CPT/HCPCS: 99212 ==

== ENCOUNTER 2024-09-09 11:01 | Outpatient (AMB) | payer MEDICARE, SELFPAY ==
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
--- OUTSIDE RECORDS SUMMARY | 2024-09-09 11:04 | XMS_ITS | Continuity of Care Document ---
Author Organization [facility] 1st Floor Address [address] [place] [address] Assessment Encounter Date Assessment Date Assessment LastModified by Organization Details LastModified Time 08/04/2024 08/04/2024 Patient seen und er general [...] intact. X-rays ordered, [facility] 3 views the right wrist reveal appears [...] as surgery. Follow-up after MRI is obtained. [employer] speech recognition occasional babysitter software was used to create portions of this document. An attempt at proofreading has been made to minimize errors. Please call for corrections. Not available 08/04/2024 10:46:40 Plan of Treatment Reminders Order Date Submit Date Provider Last Modified By Organization Details Last Modified Time Details Appointments RECHECK 15 2024 11:30A Kyung Holden MD Not available Not available Not available Lab None recorded . Referral occupati onal therapis t, hand referral - OT- Right dorsal triquetr al fracture - ROM R wrist 2023 024 rmessenger Not available 08/24/2024 09:28:37 Procedures None recorded . Surgeries None recorded . Imaging MRI, wrist, w/o contrast - MRI R wrist r/o TFC tear 2023 024 aric [facility] ([facility]), [address], [place], [address], 08/24/2024 09:28:37 XR, wrist, 3 or more view - room 120 cast off 3V R wrist 2023 aric [facility], [address], [facility] [address], [place], [address], 08/24/2024 09:28:37 Medication Orders None recorded . Patient TargetsNo targets recorded. Patient Instructions Encounter Date Encounter Id Patient Instructions Last Modified By Organization Details Last Modified Time 08/04/2024 [id number] cast removal* - room 120 cast off 3V R wrist Not available 08/06/2024 13:08:38 Reason for Referral OT- Right dorsal triquetral fracture- ROM R wrist Referring Physician: Basil Patel, Orthopedic Surgery, Encounter Date: 08/04/2024 Results Created Date Observation Date Name Description Value Unit Range Abnormal Flag Note LastModifiedBy Organization Detail LastModifiedTime 08/04/20 24 08/04/2024 XR, wrist , 3 or more view http:/ [email or web address] ?Encry pted=s hAaTro YD8dLq bEUv6g %2BXZw aYqtaq 0bqfl% 2Fg9IQ a4ajBk vP9nXo QUaueC m3YtLR FvZlgJ JJ8mAn HZtai3 [id number] AC0Kqa HWCUKW mKiQtr MwF INTERFACE [facility] [address], [place], [address], 08/04/2024 10:32:37 08/04/20 24 08/04/2024 XR, wrist , 3 or more view http:/ [email or web address] ?Encry pted=s hAaTro YD8dLq bEUv6g %2BXZw aYqtaq 0bqfl% 2Fg9IQ a4ajBk vP9nXo QUaueC m3YtLR FvZlgJ JJ8mAn HZtai3 [id number] AC0Kqa HWCUKW mKiQtr MwF INTERFACE [facility] [address], [place], [address], 08/04/2024 10:32:39 08/12/20 24 08/09/2024 MRI, upper extre mity joint (s), w/o contr ast [facility] Access ion Number : [id number] Patien t Name: Alida Candelaria Record Number : [id number] Date of : 1955 Date of Exam: 2023 Referr ing Physic jerad: Mamie Patel [facility] ([facility]) [address], [address] [place] [address] Exam: MR Wrist (C-) CPT 37605 - Right Room Descri ption: [facility] 3T Wrist MRI right Clinic al Histor y: Pain Findin gs: Mild soft tissue edema adjace nt to the ulnar styloi d No eviden ce of fractu re or marrow edema. Degene rative thinni ng within the centra [...] onical ly Signed By: Ale Isbell MD [email or web address] [facility] ([facility]) [address] [place], [address], 08/12/2024 15:48:41 Result Notes None recorded. Medical Equipment None Reported. Allergies Allergen ID Allergen Name Allergen Category Reaction Reaction Severity Criticality Documentation Date Start Date Code Code System Note Provider Name and Address Organization Details Recorded Time 971326 Sudafed medicatio n Not available Not available Not available 07/02/2024 74136 2 RxNorm ABIDA pappas [facility] 4 10:49:17 783996 Lyrica medicatio n Not available Not available Not available 07/02/2024 82016 1 RxNorm ABIDA pappas [place] - [facility] 4 10:49:22 Medications Name Sig Start Date Stop [...] Updated DateTime 08/04/2024 170.18 cm 32.1 kg/m2 02674.44 g ABIDA SANTOS [place] - [facility] 08/04/2024 10:17:06 Social History None recorded. Functional Status None recorded. Mental Status None recorded. Family History Nothing Reported. Medical History No medical history recorded. Gynecological HistoryNo gynecological history recorded. Obstetrics History GPAL:G 0 P 0 0 0 0 Past Encounters Encounter ID Performer Location Encounter Start Date Encounter Closed Date Diagnosis/Indication Diagnosis SNOMED-CT Code Diagnosis ICD10 Code [id number] MESFIN Castillo 1st [address] [place] [address] 08/04/2024 09:52:15 08/24/2024 09:28:37 Closed fracture of right wrist 5598102919 7804564 S62.101D Closed fra cture of triquetral bone of wrist 96198341 S62.114D Health Concerns Section Related Observation LastModified by Organization Detai ls LastModified Time None Recorded Concern Status LastModified by Organization Details LastModified Time None Recorded Payers Encounter Date Sequence Insurance Name Policy Number Policy Monahan Covered Member ID Monahan Member ID Guarantor Name 08/04/2024 2 [facility] OPTIONS (MEDICARE SUPPLEMENT) Alida Candelaria [id number] Alida Candelaria 08/04/2024 [employer] Alida Candelaria OBGyn Episode No OBEpisode recorded.
--- OUTSIDE RECORDS SUMMARY | 2024-09-09 11:04 | XMS_ITS | Continuity of Care Document ---
Author Organization [facility], [facility] 1st Floor Address [address] [place] [address] Assessment Encounter Date Assessment Date Assessment LastModified by Organization Details LastModified Time 09/03/2024 09/03/2024 Patient seen und er general [...] weeks for recheck. Sooner if further difficulty. [facility] speech recognition special education tutor software was used to create portions of this document. An attempt at proofreading has been made to minimize errors. Please call for corrections. Not available 09/03/2024 15:11:24 Plan of Treatment Reminders Order Date Submit Date Provider Last Modified By Organization Details Last Modified Time Details Appointments RECHECK 15 2024 11:30A M Perico Holden MD Not available Not available Not available Lab None recorded. Referral occupatio nal therapist referral - OT- Right dorsal triquetra l fracture- ROM R wrist 2023 024 Not available 09/08/2024 11:02:42 Procedures None recorded. Surgeries None recorded. Imaging None recorded. Medication Orders None recorded. Patient TargetsNo targets recorded. Patient InstructionsNo instructions recorded. Reason for Referral Occupational Therapist Refer ral for Closed fracture of right wrist OT- Right dorsal triquetral fracture- ROM R wrist OT- Right dorsal triquetral fracture- ROM R wrist Referring Physician: Basil Patel, Orthopedic Surgery, Encounter Date: 09/03/2024 Results Created Date Observation Date Name Description Value Unit Range Abnormal Flag Note LastModifiedBy Organization Detail LastModifiedTime 08/04/2008/04/2024 XR, wrist , 3 or more view http:/ [email or web address] ?Encry pted=s hAaTro YD8dLq bEUv6g %2BXZw aYqtaq 0bqfl% 2Fg9IQ a4ajBk vP9nXo QUaueC m3YtLR FvZlgJ JJ8mAn HZtai3 [id number] AC0Kqa HWCUKW mKiQtr MwF INTERFACE [facility] [address] [facility] [facility] [address], [place], [address], 08/04/2024 10:32:37 08/04/20 24 08/04/2024 XR, wrist , 3 or more view http:/ [email or web address] ?Encry pted=s hAaTro YD8dLq bEUv6g %2BXZw aYqtaq 0bqfl% 2Fg9IQ a4ajBk vP9nXo QUaueC m3YtLR FvZlgJ JJ8mAn HZtai3 4t9154 AC0Kqa HWCUKW mKiQtr MwF INTERFACE [facility] [address], [place], [address], 08/04/2024 10:32:39 08/12/20 24 08/09/2024 MRI, upper extre mity joint (s), w/o contr ast [facility] Access ion Number : [id number] Patien t Name: Alida Candelaria Record Number : [id number] Date of : 1955 Date of Exam: 2023 Referr ing Physic jerad: Mamie Patel [facility] ([facility]) [address] [place] [address] Exam: MR Wrist (C-) CPT 50853 - Right Room Descri ption: [facility] Pion 3T Wrist MRI right [...] onical ly Signed By: Ale Isbell MD [email or web address] [facility] ([facility]) [address], [place], [address], 08/12/2024 15:48:41 Result Notes None recorded. Medical Equipment None Reported. Allergies Allergen ID Allergen Name Allergen Category Reaction Reaction Severity Criticality Documentation Date Start Date Code Code System Note Provider Name and Address Organization Details Recorded Time 874922 Sudafed medicatio n Not available Not available Not available 07/02/2024 67065 2 RxNorm ABIDA pappas [facility] 10:49:17 582471 Lyrica medicatio n Not available Not available Not available 07/02/2024 79643 1 RxNorm ABIDA pappas [place] - [place] 4 10:49:22 Medications Name Sig Start [...] Updated DateTime 09/03/2024 170.18 cm 31.5 kg/m2 69918.07 g ABIDA SANTOS [place] - [place] 09/03/2024 14:48:11 Social History None recorded. Functional Status None recorded. Mental Status None recorded. Family History Nothing Reported. Medical History No medical history recorded. Gynecological HistoryNo gynecological history recorded. Obstetrics History GPAL:G 0 P 0 0 0 0 Past Encounters Encounter ID Performer Location Encounter Start Date Encounter Closed Date Diagnosis/Indication Diagnosis SNOMED-CT Code Diagnosis ICD10 Code [id number] Basil Patel PA-C [facility] [address] [place] [address] 08/04/2024 09:52:15 08/24/2024 09:28:37 Closed fracture of right wrist 8521432335 0062271 S62.101D Closed fra cture of triquetral bone of wrist 57661502 S62.114D [id number] Basil Patel PA-C [facility] [address] [place] [address] 09/03/2024 14:25:10 09/03/2024 15:11:42 Closed fracture of right wrist 9802829999 9660180 S62.101D Pain of right wrist 3169 066617 44392 M25.531 Health Concerns Section Related Observation LastModified by Organization Detai ls LastModified Time None Recorded Concern Status LastModified by Organization Details LastModified Time None Recorded Payers Encounter Date Sequence Insurance Name Policy Number Policy Monahan Covered Member ID Monahan Member ID Guarantor Name 09/03/2024 2 [employer] OPTIONS (MEDICARE SUPPLEMENT) Alida Candelaria [id number] Alida Candelaria 09/03/2024 1 [facility] Alida Candelaria [id number] Alida Candelaria OBGyn Episode No OBEpisode recorded.
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
== END 2024-09-09 13:48 | disposition home or self-care (01) ==
LOC: HO.HOP 11:01
PROVIDERS: PCP Nurse Practitioner Family; Visit Provider Psychiatry & Neurology Psychiatry
DX: F43.10 Post-traumatic stress disorder, unspecified (principal); F32.A Depression, unspecified; F42.9 Obsessive-compulsive disorder, unspecified
CPT/HCPCS: 99214

== ENCOUNTER → 2024-09-09 11:01 | Outpatient (BNVA) | payer MEDICARE, SELFPAY | PROVIDERS: PCP Nurse Practitioner Family; Visit Provider Psychiatry & Neurology Psychiatry | DX: F43.10 Post-traumatic stress disorder, unspecified (principal); F32.A Depression, unspecified; F42.9 Obsessive-compulsive disorder, unspecified | CPT/HCPCS: 99212 ==

== ENCOUNTER 2024-09-21 10:23 | Inpatient (IN) | payer MEDICARE, SELFPAY ==
--- NOTE | ~2024-09-21 | CT_ITS ---
EXAMINATION: CT ABDOMEN AND PELVIS WITH CONTRAST CLINICAL INFORMATION: Abdominal pain COMPARISON: None available. TECHNIQUE: Multidetector volumetric images were obtained from the superior aspect of the liver through the pubic symphysis following administration 85 mL of Omnipaque 350 intravenous contrast. Sagittal and coronal reformatted images were obtained on the technologist's workstation. Oral contrast: No This CT examination was performed using dose optimization techniques as appropriate, variously including the following: *Automated exposure control *Adjustment of mA and/or kV according to patient size (this includes techniques or standardized protocols for targeted exams where dose is matched to indication/reason for exam; i.e. extremities or head) *Use of iterative reconstruction technique. 1124 FINDINGS: LUNG BASES: Patchy groundglass and atelectatic changes in left lung base. The heart size is normal. There is no pericardial or pleural effusion. LIVER, GALLBLADDER, AND BILIARY TREE: The liver is normal in size, shape, and attenuation. No focal hepatic lesion or biliary ductal dilatation is present. The gallbladder has been surgically removed. PANCREAS: Unremarkable. SPLEEN: Unremarkable. ADRENAL GLANDS: Unremarkable. KIDNEYS AND URETERS: The kidneys are normal in size, shape, and attenuation. No hydronephrosis, hydroureter, or calculi seen. No perinephric stranding. There is a left peripelvic cyst. BLADDER: Unremarkable. GASTROINTESTINAL TRACT: There is scattered stool, diverticuli and gas seen throughout the colon without significant distention. The small bowel loops are normal caliber. Appendix is a small caliber. There is no free air or free fluid. Nonspecific mild haziness and few scattered lymph nodes seen in the small bowel mesentery. ABDOMINAL WALL: No significant hernia is appreciated. LYMPH NODES: Normal. VASCULAR: Unremarkable. PELVIC VISCERA: The uterus is retroverted. There is no adnexal mass or free fluid. OSSEOUS STRUCTURES: No aggressive lytic or sclerotic process seen. CT/CT abdomen pelvis w IV con IMPRESSION: Diffuse colonic diverticulosis without colitis. Mesenteric haziness and scattered lymph nodes suggesting of mesenteritis, nonspecific. Cholecystectomy. Nonspecific groundglass attenuation and atelectatic changes in left lung base. Fleischner guidelines were followed. Electronically signed by: Gabe Hurtado MD 09/28/2024 10:59 AM [facility] [place]
--- NOTE | ~2024-09-21 | XR_ITS ---
CLINICAL HISTORY: RUQ pain 1 view abdomen Comparison: None Findings: Dilated loops of small bowel with the most dilated small bowel loops measure up to 4 cm. There is diffuse gaseous distention of the stomach, small bowel, and colon. No pneumoperitoneum or pneumatosis. Cholecystectomy clips noted. IMPRESSION: 1. Prior cholecystectomy. 2. Diffuse gaseous distention of the stomach, small bowel, and colon. Findings could represent ileus, although several small bowel loops are dilated up to 4 cm and this could represent a small-bowel obstruction also. This document has been electronically signed by: Negro Coronel MD on 09/27/2024 21:55:03
--- OUTSIDE RECORDS SUMMARY | 2024-09-21 10:29 | XMS_ITS | Data Portability ---
Author Organization [facility] J[facility], [address] Address [address] [place] [address] Assessment No assessment recorded. Plan of Treatment Reminders Order Date Submit Date Provider Last Modified By Organization Details Last Modified Time Details Appointments None recorded. Lab urinalysis , dipstick 2022 023 [email or web address] [facility], [address] [place] [address], [place], [address], 16:29:08 culture, urine 2022 023 [facility], [address] [place] [address], [address], 10:06:34 Referral None recorded. Procedures None recorded. Surgeries None recorded. Imaging None recorded. Medication Orders None recorded. Patient TargetsNo targets recorded. Patient Instructions Encounter Date Encounter Id Patient Instructions Last Modified By Organization Details Last Modified Time 10/15/2022 [id number] We recommend you get a repeat urinalysis in 2 weeks to ensure that any abnormalities have resolved. If urine abnormalities persist, you will likely need further testing or treatment. We will contact you within 3 to 5 days with the results of your lab test. If you have not heard back from us within that time frame, please feel free to contact our office regarding your results. Go to the Emergency Department immediately if your symptoms worsen or if you develop new symptoms that concern you. Drink plenty of fluids You should follow-up with your PCP in 4-5 days, or at any time if your condition does not improve or worsens. Any acute change should prompt a visit to the nearest Emergency Department. [email or web address] Not available 10/15/2022 16:29:22 Reason for Referral None Reported. Results Created Date Observation Date Name Description Value Unit Range Abnormal Flag Note LastModifiedBy Organization Detail LastModifiedTime 10/15/19 23 10/18/2022 URINE CULTU RE, ROUTI NE urine culture, routine FINAL REPORT abnormal Not Available [facility] ([facility]) [address] [facility] [address], [place], [address], 10/18/2022 12:06:27 10/15/19 23 10/18/2022 URINE CULTU RE, ROUTI NE result 1 ESCHER ICHIA COLI abnormal Cefaz jovon <=4 ug/mL Cefaz jovon with an NYDIA <=16 predi cts susce ptibi lity to the oral agent s cefac claudio, cefdi danni, cefpo doxim e, cefpr ozil, cefur oxime , cepha lexin , and lorac arbef when used for thera py of uncom plica ericka urina ry tract infec tions due to E. coli, Klebs iella pneum oniae , and Prote us mirab ilis. Great er than 100,0 00 colon y formi ng units per mL Not Available [facility] ([facility]) [address] [facility] [address], [place], [address], 10/18/2022 12:06:27 10/15/19 23 10/18/2022 URINE CULTU RE, ROUTI NE antimicrobia l susceptibili ty COMMEN T S = Susce ptibl e; I = Inter media te; R = Resis tant P = Posit justo; N = Negat justo MICS are expre ssed in micro grams per mL Antib iotic RSLT# 1 RSLT# 2 RSLT# 3 RSLT# 4 Amoxi cilli n/Cla vulan ic Acid S Ampic illin S Cefep deshaun S Ceftr iaxon e S Cefur oxime S Cipro floxa vidal S Ertap enem S Genta micin S Imipe nem S Levof loxac in S Merop enem S Nitro furan toin S Piper acill in/Ta zobac dupree S Tetra cycli ne S Tobra mycin S Trime thopr im/Unger lfa S Not Available [facility] ([facility]) [address] [facility] [address], [place], [address], 10/18/2022 12:06:27 10/15/1910/15/2022 urina lysis , dipst ick Unknown Analyte Normal = light yellow Not Available [facility] [address], [place], [address], 10/15/2022 14:30:39 10/15/1910/15/2022 urina lysis , dipst ick Unknown Analyte Yellow Not Available tee [address], [place], [address], 10/15/2022 14:30:39 10/15/1910/15/2022 urina lysis , dipst ick Unknown Analyte Normal = clear Not Available [facility] [address], [place], [address], 10/15/2022 14:30:39 10/15/19 23 10/15/2022 urina lysis , dipst ick Unknown Analyte Cloudy Not Available tee [address], [place], [address], 10/15/2022 14:30:39 10/15/1910/15/2022 urina lysis , dipst ick Unknown Analyte Normal = negati ve Not Available [facility] [address], [place], [address], 10/15/2022 14:30:39 10/15/1910/15/2022 urina lysis , dipst ick Unknown Analyte Negati ve Not Available [facility] [address], [place], [address], 10/15/2022 14:30:39 10/15/19 23 10/15/2022 urina lysis , dipst ick Unknown Analyte Normal = Negati ve Not Available [facility] [address], [place], [address], 10/15/2022 14:30:39 10/15/1910/15/2022 urina lysis , dipst ick Unknown Analyte Negati ve Not Available [facility] [address], [place], [address], 10/15/2022 14:30:39 10/15/1910/15/2022 urina lysis , dipst ick Unknown Analyte Normal = Negati ve Not Available [facility] [address], [place], [address], 10/15/2022 14:30:39 10/15/19 23 10/15/2022 urina lysis , dipst ick Unknown Analyte Negati ve Not Available [facility] [address], [place], [address], 10/15/2022 14:30:39 10/15/1910/15/2022 urina lysis , dipst ick Unknown Analyte Normal = 1.010, 1.015, 1.020 Not Available [facility] [address], [place], [address], 10/15/2022 14:30:39 10/15/1910/15/2022 urina lysis , dipst ick Unknown Analyte 1.020 [facility] Available [facility] [address], [place], [address], 10/15/2022 14:30:39 10/15/1910/15/2022 urina lysis , dipst ick Unknown Analyte Normal = Negati ve Not Available [facility] [address], [place], [address], 10/15/2022 14:30:39 10/15/1910/15/2022 urina lysis , dipst ick Unknown Analyte Large Not Available tee [address], [place], [address], 10/15/2022 14:30:39 10/15/1910/15/2022 urina lysis , dipst ick Unknown Analyte Normal = 6.5, 7.0, 7.5, 8.0 Not Available [facility] [address], [place], [address], 10/15/2022 14:30:39 10/15/1910/15/2022 urina lysis , dipst ick Unknown Analyte 7.0 Not Available [facility] [address], [place], [address], 10/15/2022 14:30:39 10/15/1910/15/2022 urina lysis , dipst ick Unknown Analyte Normal = Negati ve Not Available [facility] [address], [place], [address], 10/15/2022 14:30:39 10/15/19 23 10/15/2022 urina lysis , dipst ick Unknown Analyte 30 mg/dL Not Available [facility] [address], [place], [address], 10/15/2022 14:30:39 10/15/1910/15/2022 urina lysis , dipst ick Unknown Analyte Normal = 0.2, 1.0 Not Available [facility] [address], [place], [address], 10/15/2022 14:30:39 10/15/19 23 10/15/2022 urina lysis , dipst ick Unknown Analyte 0.2 E.U./d L Not Available [facility] [address], [place], [address], 10/15/2022 14:30:39 10/15/1910/15/2022 urina lysis , dipst ick Unknown Analyte Normal = Negati ve Not Available [facility] [address], [place], [address], 10/15/2022 14:30:39 10/15/1910/15/2022 urina lysis , dipst ick Unknown Analyte Negati ve Not Available [address] [address] [address], [place], [address], 10/15/2022 14:30:39 10/15/1910/15/2022 urina lysis , dipst ick Unknown Analyte Normal = Negati ve Not Available [facility] [address], [place], [address], 10/15/2022 14:30:39 10/15/1910/15/2022 urina lysis , dipst ick Unknown Analyte Modera te Not Available [address] [address], [place], [address], 10/15/2022 14:30:39 Result Notes None recorded. Problems Name Problem SNOMED Code Status Onset Date Resolution Date Notes Provider Name and Address Organization Details Recorded Time Gastroesophage al reflux disease 112612288 Active 2022 Missy Holbrook null, PA - [facility] 14:34:47 Anxiety 91304228 Active 2022 Missy Holbrook null, PA - [facility] 14:35:10 Depressive disorder 06269926 Active 2022 Missy Jae null, PA - [facility] 14:35:14 Notes:Restricitve airway dis ease Problem Notes None recorded. Procedures Surgical History Date Name Laterality Status Provider Name and Address Organization Details Recorded Time Appendectomy completed Missy Jae PA - [facility] 10/15/2022 14:35:32 cholecystostomy completed Missy Jae P A - [facility] 10/15/2022 14:35:37 Removal of tonsils completed Missy Beeb e PA - [facility] 10/15/2022 14:35:50 Imaging Results None recorded. Procedure Notes None recorded. Medical Equipment None Reported. Allergies Allergen ID Allergen Name Allergen Category Reaction Reaction Severity Criticality Documentation Date Start Date Code Code System Note Provider Name and Address Organization Details Recorded Time 043554 Sudafed medicatio n insomnia Not available low 10/15/2022 32394 2 RxNorm Missy Holbrook null, PA - [facility] 14:31:58 900371 Lyrica medicatio n dizziness Not available high 10/15/2022 42292 1 RxNorm Missy Holbrook null, PA - [facility] 14:32:06 Medications Name Sig Start Date Stop Date Status Note LastModified by Organization Details LastModified Time Macrobid 100 mg capsule Take 1 capsule every 12 hours by oral route with meals for 7 days. 023 active Not Available Not Available Not Avai lable Seroquel 200 mg tablet Take 1 tablet twice a day by oral route. active Not Available Not Available No t Available Klonopin active Not Available Not Avai lable Not Available Anafranil active Not Available Not Kelsi ilable Not Available omeprazole active Not Available Not Av ailable Not Available Abilify active Not Available Not Avail able Not Available Vitals Date Recorded Body height Body mass index (BMI) Body weight Oxygen saturation Oxygen saturation in Arterial blood by Pulse oximetry Heart rate Respiratory rate Body temperature Systolic blood pressure Diastolic blood pressure Provider Name and Address Organization Details Last Updated DateTime 3 170.18 cm 32.9 kg/m2 09125.4 g 99 % 99 % 105 /min 20 /min 98.1 [degF] 155 mm[Hg] 83 mm[Hg] Missy Holbrook PA - [facility] 3 14:36:59 Social History Question Answer Notes LastModified by Organizat ion Details LastModified Time Tobacco Smoking Status Never Smoker Missy Jae null, PA - [facility] 10/15/2022 14:35:22 What Is Your Level Of Alcohol Consumption? None Information not available 10/15/2022 Have You Had Direct Contact, Or Contact During Intimacy, With Monkeypox Rash, Scabs, Or Body Fluids From A Person With Monkeypox? No Information not available 10/15/2022 Do You Use Any Illicit Or Recreational Drugs? No Information not available 10/15/2022 Have You Recently Traveled Abroad? No Information not available 10/15/2022 Do You Or Have You Ever Used Any Other Forms Of Tobacco Or Nicotine? No Information not available 10/15/2022 Sex: Unknown Functional Status None recorded. Mental Status None recorded. Family History Relationship Description Onset Age of this Age Resolved Age Notes LastModified by Organization Details LastModified Time Father No current problems or disability Not available 10/15 14:35:17 Mother No current problems or disability Not available 10/15 14:35:17 Medical History No medical history recorded. Gynecological HistoryNo gynecological history recorded. Obstetrics History GPAL:G 0 P 0 0 0 0 Immunizations Vaccine Type Date Status Note Provider Nam e and Address Organization Details Recorded Time COVID-19, mRNA, LNP-S, PF, 100 mcg/0.5mL dose or 50 mcg/0.25mL dose 1 completed Missy Holbrook null, PA - [facility] 10/15/2022 14:32:13 COVID-19, mRNA, LNP-S, PF, 100 mcg/0.5mL dose or 50 mcg/0.25mL dose 1 completed Missy Holbrook null, PA - [facility] 10/15/2022 14:32:13 COVID-19, mRNA, LNP-S, PF, 100 mcg/0.5mL dose or 50 mcg/0.25mL dose 1 completed Missy Jae null, PA - [facility] 10/15/2022 14:32:13 Influenza, split virus, trivalent, preservative 0 completed Missy Holbrook null, PA - [facility] 10/15/2022 14:32:13 Past Encounters Encounter ID Performer Location Encounter Start Date Encounter Closed Date Diagnosis/Indication Diagnosis SNOMED-CT Code Diagnosis ICD10 Code [id number] [facility] [place] [address] 08/13/2020 14:18:01 08/13/2020 15:37:22 [id number] [address] [address] 08/13/2020 13:19:52 08/13/2020 15:34:27 [id number] Dipak Kathleen [place] [id number] [address] 10/15/2022 14:08:24 10/15/2022 16:32:00 Acute urinary tract infection 742127963 N39.0 Health Concerns Section Related Observation LastModified by Organization Detai ls LastModified Time None Recorded Concern Status LastModified by Organization Details LastModified Time None Recorded Advance Directives Directive None Recorded Payers Encounter Date Sequence Insurance Name Policy Number Policy Monahan Covered Member ID Monahan Member ID Guarantor Name 08/13/2020 1 [facility] [id number] Shashank Candelaria [id number] Alida Candelaria 08/13/2020 1 [facility] [id number] Shashank Candelaria [id number] Alida Candelaria 10/15/2022 1 MEDICARE B-FL: [facility] Alida Candelaria [id number] Alida Candelaria Notes Date Note Type Note Provider Name and Address Organization Details Recorded Time 3 text/html Urinary Complaint FemaleReported bypatient.source of patient informationInformation obtained from patient; Patient arrived at Urgent Care ambulatory UTI Symptoms:no blood in the urine; no pain during urination; no vaginal discharge; no pain in the flank; no fever/chills; no incontinence; no recurrent UTI; no known exposure to STD;urgency;urinary frequency Severity:moderate Duration:2 days Dipak Kathleen NP [address] [place], [address], PA - [facility] 10/20/2022 09:59:41 OBGyn Episode No OBEpisode recorded.
[2024-09-21 10:45] VITALS: BP 147/63; PULSE 86; RESP 20; TEMP 36.5; O2SAT 100; BMI 32.3
--- NOTE | 2024-09-21 11:00 | ED_ITS ---
HPI - Psych General Chief Complaint: Psychiatric Symptoms Stated Complaint: SI Psych Issues Time Seen by Provider: 09/21/24 10:54 Source: patient Mode of arrival: ambulatory Limitations: no limitations History of Present Illness ED Provider: ALIS PEREZ Narrative: 68 yo female with PMH of GERD, depression, OCD, restrictive lung disease, hepatitis, PTSD who comes in with c/o worsening depression and SI with plan to suffocate herself. She denies any injury, new illness, overdose. She is calm and cooperative, med compliant here to seek help. MD complaint: suicidal ideation and feels depressed Onset (ago): week(s) Duration: getting worse History of same: Yes Relieving factors: none Exacerbating factors: other Context: significant life stressor Associated psychiatric symptoms: depression and suicidal ideation Associated symptoms: denies other symptoms If self harm: admits thoughts of self harm and has plan Related Data Previous Rx's ?Medication ?Instructions ?Recorded aripiprazole 5 mg tablet 5 mg PO BEDTIME #90 tabs 05/19/24 paroxetine HCl 40 mg tablet 40 mg PO BEDTIME #90 tabs 05/19/24 quetiapine 200 mg tablet 400 mg (2 x 200 mg) PO BEDTIME 90 08/07/24 days #180 tabs clomipramine 25 mg capsule 75 mg (3 x 25 mg) PO BEDTIME #90 09/09/24 caps clonazepam 0.5 mg tablet 0.5 mg PO BEDTIME insomnia 30 days 09/09/24 #35 tabs lorazepam 1 mg tablet 1 mg PO DAILY PRN Panic Attack(S) 09/09/24 #14 tabs Allergies Allergy/AdvReac Type Severity Reaction Status Date / Time shellfish derived Allergy Severe DIFFICULTY Verified 09/21/24 10:47 [SHELLFISH DERIVED] BREATHING pseudoephedrine Allergy Intermediate AGITATION Verified 09/21/24 10:47 [From SUDAFED] pregabalin [From Lyrica] Allergy Dizziness Verified 09/21/24 10:47 Review of Systems 2 Review of Systems: Constitutional : No Fever, No Chills ENT/Mouth : No Ear Pain, No Nasal Congestion, No sore throat Eyes: No Eye Pain, No Swelling, No Redness Cardiovascular : No Chest Pain, No SOB Respiratory : No Cough, No Sputum, No Dyspnea Gastrointestinal : No Nausea, No Vomiting, No Diarrhea, No Hematochezia, No Melena Genitourinary : No Dysuria, No Urinary Frequency, No Hematuria Musculoskeletal : No Myalgias Skin : No Skin Lesions, No rash Neuro : No Weakness, No Numbness, No Paresthesias, No Dizziness, No Headache Psych : positive Anxiety, positive Depression, positive SI no HI All other systems reviewed and are negative [facility] Past Medical History Attestation statement: The following information was validated with the patient. Source: old records reviewed Medical History Major depression in remission Major depression single episode, in partial remission Major depression, recurrent, chronic Pneumonitis Dyspnea Flu Osteopenia History of hyperglycemia Fatty liver Hepatitis Small airways disease Chronic restrictive lung disease COVID-19 History of shingles History of COVID-19 Stress incontinence GERD (gastroesophageal reflux disease) IBS (irritable bowel syndrome) Surgical History History of adenoidectomy Hx of tonsillectomy History of appendectomy History of cholecystectomy Social History Social History Household Members: Spouse and Children Household Members Other:: A son Housing: House Do you presently have visiting nurse or other home services: No Alcohol intake: current Alcohol intake frequency: holidays/special occasions only Patient Tobacco Use Status: Never used Tobacco Smoked in Last 30 Days: No e-Cigarette/Vaping Use: Never Used Second Hand Smoke Exposure: No Use of substances other than those prescribed or required for medical reasons: No Advance Directives: No Advance Directives Information Provided: Yes service: No Sexual orientation: Straight/Heterosexual Physical Exam 2 Vital Signs: Vital Signs: Last Vital Signs Temp 97.7 F 09/21/24 10:45 Pulse 86 09/21/24 10:45 Resp 20 09/21/24 10:45 BP 147/63 H 09/21/24 10:45 Pulse Ox 100 09/21/24 10:45 O2 Del Method Room Air 09/21/24 10:45 BMI result Body Mass Index 32.3 Appearance: Alert. Oriented X3. No acute distress. Eyes: Pupils equal, round and reactive to light. ENT: Pharynx normal. Neck: Normal inspection. Neck supple. CVS: Normal heart rate and rhythm. Pulses normal. Respiratory: No respiratory distress. Breath sounds normal. Abdomen: Soft and non-tender. Skin: Skin warm and dry. Normal skin color. Normal skin turgor. Extremities: No lower extremity edema. Neuro: Oriented X 3. No motor deficit. No sensory deficit. CN2-12 intact Course Course Course Narrative: inpatient bed search Reevaluation(s) Reevaluation #1: EKG has new poor R wave progression but likely old even after February she has no acute symptoms Medical Decision Making Medical Decision Making MDM Narrative: 68 yo female with PMH of GERD, depression, OCD, restrictive lung disease, hepatitis, PTSD here with c/o SI with plan at this time she is calm and cooperative will obtain labs, EKG, and refer to CARE team Differential Diagnosis Differential Diagnoses: The differential diagnosis associated with the presentation includes SI and depression Admission/Observation Consideration of admission/observation: Escalation of care including admission/observation considered physician observation started at 1105am Consult Healthcare Provider Management of the patient was discussed with: Behavioral Health Provider Lab Data [facility] Lab Attestation statement: I reviewed the patient's lab results. 09/21/24 11:44 09/21/24 11:44 Labs: Lab Results 09/21/24 09/21/24 Range/Units 11:44 14:09 WBC 6.9 (4.8-10.8) X10*3/uL RBC 4.51 (4.20-5.50) X10*6/uL Hgb 13.5 (12.0-16.0) g/dl Hct 41.9 (37.0-47.0) % MCV 92.9 (80.0-98.0) fL MCH 29.9 (27.0-33.0) pg MCHC 32.2 (31.0-35.0) g/dl RDW 13.8 (11.0-16.0) % Plt Count 205 (160-400) X10*3/uL MPV 11.6 (9.4-12.3) fL Immature Gran % (Auto) 0.3 (0.0-0.4) % Neut % (Auto) 58.7 (45-73) % Lymph % (Auto) 25.3 (20-40) % [place] % (Auto) 8.1 (2-11) % Eos % (Auto) 6.9 H (0-4) % Baso % (Auto) 0.7 (0-2) % Lymph # (Auto) 1.8 (1.2-4.9) X10*3/uL [place] # (Auto) 0.6 (0.1-1.2) X10*3/uL Eos # (Auto) 0.5 H (0.0-0.4) X10*3/uL Baso # (Auto) 0.1 (0.0-0.2) X10*3/uL Abs Immat Gran (auto) 0.02 (0.00-0.03) X10*3/uL Absolute Neuts (auto) 4.1 (2.0-8.3) x10*3/uL Absolute Nucleated RBC 0.000 (0.0-0.012) X10*3/uL Nucleated RBC % (auto) 0.0 (0.0-0.2) /100WBC Sodium 142 (135-145) mmol/L Potassium 4.1 (3.3-5.1) mmol/L Chloride 110 H (96-108) mmol/L Carbon Dioxide 26 (22-29) mmol/L Anion Gap 10 L (12-20) BUN 15 (9-16) mg/dL Creatinine 0.80 (0.5-1.4) mg/dL Estim Creat Clear Calc 80.1 Estimated GFR > 60 Random Glucose 91 (60-115) mg/dL Calcium 9.6 (8.4-10.2) mg/dL Magnesium 2.0 (1.6-2.6) mg/dL Total Bilirubin 0.3 (0.0-1.0) mg/dL Direct Bilirubin 0.1 (0.0-0.5) mg/dL AST 33 H (5-31) U/L ALT 44 H (0-31) U/L Alkaline Phosphatase 103 (39-117) U/L Total Protein 7.0 (6.5-8.0) g/dL Albumin 4.1 (3.5-5.0) g/dL Lipase 28 (8-78) U/L Urine Color Yellow Urine Appearance Clear Urine pH 7.5 (5.0-9.0) Ur Specific [place] 1.015 (1.005-1.025) Urine Protein Negative (Neg-Trace) mg/dL Urine Glucose (UA) Negative (Negative) mg/dL Urine Ketones Negative (Negative) mg/dL Urine Blood Negative (Negative) Urine Nitrite Negative (Negative) Ur Leukocyte Esterase Negative (Negative) Urine Opiates Screen Not Detected (Not Detect) Ur Buprenorphine Scrn Not Detected (Not Detect) ng/mL Ur Oxycodone Screen Not Detected (Not Detect) ng/mL Urine Methadone Screen Not Detected (Not Detect) ng/mL Urine Fentanyl Screen Not Detected (Not Detect) Ur Barbiturates Screen Not Detected (Not Detect) Ur Phencyclidine Scrn Not Detected (Not Detect) Ur Amphetamines Screen Not Detected (Not Detect) U Benzodiazepines Scrn Not Detected (Not Detect) Urine Cocaine Screen Not Detected (Not Detect) U Marijuana (THC) Screen Not Detected (Not Detect) Ethyl Alcohol < 10 mg/dL Influenza Type A (PCR) NEGATIVE (Negative) Influenza Type B (PCR) NEGATIVE (Negative) RSV RNA Qual (PCR) NEGATIVE (Negative) SARS-CoV-2 RNA (RT-PCR) NEGATIVE (Negative) Independent Interpretation I performed an independent interpretation of an: EKG Interpretation: Rate: 84 Rhythm: NSR [place]: left Normal P waves. Normal MANUEL. Normal QRS complex. ST T wave : no ALEX, inverted t wave V1-V3, flat t waves inf leads qTC: 458 prior studies: T waves same in past poor R wave progression since February 2024 The study has been interpreted contemporaneously by me. . External Record Review External record reviewed: Outpatient record Discharge Plan Discharge Clinical Impression: Suicidal ideation Patient Disposition: Still a Patient Prescriptions: No Action quetiapine 200 mg tablet 400 mg PO BEDTIME 90 Days Qty: 180 1RF aripiprazole 5 mg tablet 5 mg PO BEDTIME Qty: 90 1RF paroxetine HCl 40 mg tablet 40 mg PO BEDTIME Qty: 90 1RF Rx Instructions: Patient stated she takes at Bedtime. clomipramine 25 mg capsule 75 mg PO BEDTIME Qty: 90 2RF clonazepam 0.5 mg tablet 0.5 mg PO BEDTIME 30 Days Qty: 35 2RF Rx Instructions: take 1 tab bedtime may take additional 1 tab daily as needed for panic/anxiety lorazepam 1 mg tablet 1 mg PO DAILY PRN (Reason: Panic Attack(S)) Qty: 14 1RF Interventions: [place]-Suicide Risk Severity Scale Last Done: 09/21/24 15:09 Print Language: Lithuanian
--- NOTE | 2024-09-21 11:05 | ECG_ITS ---
Test Reason : QTC CHECK Blood Pressure : / mmHG Vent. Rate : 084 BPM Atrial Rate : 084 BPM P-R Int : 160 ms QRS Dur : 086 ms QT Int : 388 ms P-R-T Axes : 050 -03 031 degrees QTc Int : 458 ms Normal sinus rhythm Cannot rule out Anterior infarct , age undetermined Abnormal ECG When compared with ECG of 11-MAR-2024 10:52, Minimal criteria for Anterior infarct are now Present Nonspecific T wave abnormality now evident in Inferior leads Referred By: Sylvia Santaan Electronically Signed By:KORTNEY HARDIN MD
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
[2024-09-21 11:49] LABS: MANUAL DIFF FLAG NO
[2024-09-21 11:55] LABS: Basophils Absolute Auto 0.1 X10*3/uL (0.0-0.2); Basophils Percent Auto 0.7 % (0-2); Eosinophils Absolute Auto 0.5 X10*3/uL (0.0-0.4); Eosinophils Percent Auto 6.9 % (0-4); Hematocrit 41.9 % (37.0-47.0); Hemoglobin 13.5 g/dl (12.0-16.0); Imm Gran Abs Auto 0.02 X10*3/uL (0.00-0.03); Imm Gran Pct Auto 0.3 % (0.0-0.4); Lymphocytes Absolute Auto 1.8 X10*3/uL (1.2-4.9); Lymphocytes Percent Auto 25.3 % (20-40); Mean Corpuscular HGB Conc 32.2 g/dl (31.0-35.0); Mean Corpuscular Hemoglobin 29.9 pg (27.0-33.0); Mean Corpuscular Volume 92.9 fL (80.0-98.0); Mean Platelet Volume 11.6 fL (9.4-12.3); Monocytes Absolute Auto 0.6 X10*3/uL (0.1-1.2); Monocytes Percent Auto 8.1 % (2-11); Neutrophils Absolute Auto 4.1 x10*3/uL (2.0-8.3); Neutrophils Percent Auto 58.7 % (45-73); Platelet Count 205 X10*3/uL (160-400); Red Blood Count 4.51 X10*6/uL (4.20-5.50); Red Cell Distribution Width 13.8 % (11.0-16.0); White Blood Count 6.9 X10*3/uL (4.8-10.8)
[2024-09-21 12:08] LABS: Alanine Aminotransferase 44 U/L (0-31); Albumin Level 4.1 g/dL (3.5-5.0); Alkaline Phosphatase 103 U/L (39-117); Anion Gap 10 (12-20); Aspartate Amino Transferase 33 U/L (5-31); Bilirubin Direct 0.1 mg/dL (0.0-0.5); Bilirubin Total 0.3 mg/dL (0.0-1.0); Blood Urea Nitrogen 15 mg/dL (9-16); Calcium 9.6 mg/dL (8.4-10.2); Carbon Dioxide 26 mmol/L (22-29); Chloride 110 mmol/L (96-108); Creatinine Clr Calc Pharmacy 80.1; Estimated Glomerular Filt Rate > 60; Ethanol < 10 mg/dL; Glucose Random 91 mg/dL (60-115); Lipase 28 U/L (8-78); Potassium 4.1 mmol/L (3.3-5.1); Sodium 142 mmol/L (135-145)
[2024-09-21 12:32] LABS: Influenza A PCR NEGATIVE (Negative); Influenza B PCR NEGATIVE (Negative); Resp Syncy Virus RNA Qual PCR NEGATIVE (Negative); SARS COV2 PCR INHOUSE NEGATIVE (Negative)
--- NOTE | 2024-09-21 13:27 | MHC.CARE ---
Pt seen by the CARE Team and is IPLOC bedsearch, Section 12A in chart.
[2024-09-21 14:19] LABS: Appearance Urine Clear; Color Urine Yellow; Glucose Urine UA Negative (Negative); Leukocyte Esterase Urine Negative (Negative); Nitrite Urine Negative (Negative); PH 7.5 (5.0-9.0); Specific Gravity - Urine 1.015 (1.005-1.025); Urine Blood Negative (Negative); Urine Ketones Negative (Negative); Urine Protein Negative (Neg-Trace)
[2024-09-21 14:25] LABS: Amphetamine Screen Urine Not Detected (Not Detect); Barbiturates, Urine Not Detected (Not Detect); Benzodiazepines Screen Urine Not Detected (Not Detect); Buprenorphine Scr Not Detected (Not Detect); Cannabinoid Screen Urine Not Detected (Not Detect); Cocaine Screen Urine Not Detected (Not Detect); Fentanyl, urine Not Detected (Not Detect); Methadone Screen, Urine Not Detected (Not Detect); Opiate Screen Urine Not Detected (Not Detect); Oxycodone Screen Urine Not Detected (Not Detect); Phencyclidine Screen Urine Not Detected (Not Detect)
--- NOTE | 2024-09-21 15:16 | PC.NURSE ---
Assumed care of patient at 1435, alert and oriented, OOB ambulating unit, gait steady. Patient currently calm and cooperative. Continue with plan of care for inpatient bed search.
[2024-09-21 17:29] VITALS: BP 171/82; PULSE 80; RESP 18; TEMP 36.3; O2SAT 97; BMI 31.9
[2024-09-21 18:03] LABS: Alanine Aminotransferase 44 U/L (0-31); Albumin Level 4.1 g/dL (3.5-5.0); Alkaline Phosphatase 102 U/L (39-117); Anion Gap 11 (12-20); Aspartate Amino Transferase 32 U/L (5-31); Bilirubin Total 0.3 mg/dL (0.0-1.0); Blood Urea Nitrogen 16 mg/dL (9-16); Calcium 9.7 mg/dL (8.4-10.2); Carbon Dioxide 29 mmol/L (22-29); Chloride 107 mmol/L (96-108); Creatinine Clr Calc Pharmacy 76.7; Estimated Glomerular Filt Rate > 60; Glucose Random 86 mg/dL (60-115); Potassium 3.9 mmol/L (3.3-5.1); Sodium 143 mmol/L (135-145); Total Protein 7.1 g/dL (6.5-8.0)
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
[2024-09-21 20:00] VITALS: BP 138/78; PULSE 82; RESP 16; TEMP 36.4; O2SAT 95
[2024-09-21] MEDS: PARoxetine HCL 40 MG TABLET PO (21:53)
[2024-09-21] MEDS: QUEtiapine Fumarate 400 MG TABLET PO (21:53)
[2024-09-21] MEDS: clonazePAM 0.5 MG TABLET PO (21:53)
[2024-09-21] MEDS: ARIPiprazole 5 MG TABLET PO (21:53)
[2024-09-21] MEDS: clomiPRAMINE HCl 25 MG CAPSULE 75 MG PO (21:53)
[2024-09-22 07:56] VITALS: BP 133/70; PULSE 82; RESP 18; TEMP 36.6; O2SAT 95
[2024-09-22] MEDS: LORazepam 1 MG TABLET PO (08:40)
[2024-09-22] MEDS: QUEtiapine Fumarate 25 MG TABLET PO (08:40)
[2024-09-22 09:38] LABS: Cholesterol 207 mg/dL (<200); HDL Cholesterol 54 mg/dL (>40); LDL Cholesterol Calculated 128 mg/dL (<100); Magnesium 2.1 mg/dL (1.6-2.6); Triglycerides 126 mg/dL (<150)
[2024-09-22 09:52] LABS: TSH reflex Free T4 3.49 uIU/mL (0.32-4.0)
--- NOTE | 2024-09-22 10:14 | PHA.MEDREC ---
Addendum entered by Lucho Kaye 09/22/24 10:18: reviewed Original Note: Pharmacy Consult ? Medication Reconciliation Pharmacy reviewed med rec done by nursing. Claims mathches what was confirmed on med rec except for Omeprazole 20mg tabs once daily. Omeprazole is OTC heartburn medication, I left on the med rec.
--- NOTE | 2024-09-22 12:01 | PC.NURSE ---
Dr Williamson updated by this mortgage or loan underwriter via [place] [employer] that the patient stated that she would take 15 Ativan to end her life today if she could. Patient spoke with nurse at length about different coping methods when having these thoughts. The patient agreed to to use different coping methods. We will keep her on five minute checks.
[2024-09-22] MEDS: Brexpiprazole 1 MG TABLET 0.5 MG PO (12:49)
[2024-09-22] MEDS: clonazePAM 0.5 MG TABLET PO ×2 (12:49→20:51)
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
[2024-09-22] MEDS: Omeprazole 20 MG CAPSULE.DR PO (14:44)
--- NOTE | 2024-09-22 16:07 | PC.NURSE ---
The patient is feeling better and not having suicidal thoughts after having the one time dose of Klonopin 0.5mg and the Rexulti 0.5mg earlier today.
[2024-09-22 20:00] VITALS: BP 118/67; PULSE 82; RESP 16; TEMP 35.7; O2SAT 96
[2024-09-22] MEDS: ARIPiprazole 2 MG TABLET PO (20:50)
[2024-09-22] MEDS: QUEtiapine Fumarate 400 MG TABLET PO (20:50)
[2024-09-22] MEDS: clomiPRAMINE HCl 25 MG CAPSULE 75 MG PO (20:51)
[2024-09-22] MEDS: PARoxetine HCL 40 MG TABLET PO (20:52)
[2024-09-22] MEDS: Acetaminophen 325 MG TABLET 650 MG PO (20:52)
[2024-09-23] MEDS: Omeprazole 20 MG CAPSULE.DR PO (05:57)
[2024-09-23 08:00] VITALS: BP 113/69; PULSE 76; RESP 20; TEMP 36.4; O2SAT 97
[2024-09-23] MEDS: Brexpiprazole 1 MG TABLET 0.5 MG PO (08:44)
[2024-09-23] MEDS: clonazePAM 0.5 MG TABLET PO ×2 (08:45→21:09)
--- NOTE | 2024-09-23 13:21 | P.PNPSI_ITS ---
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 - likely changing to new medication - will need cross taper and as patient already quite depressed, minimal functioning could be at risk during this transition of meds- ( as has happened in past) Medication Compliance: Yes Side effects from medications: Yes (TD) Attending Groups: Yes Review of Systems Acute medical concerns: No Medical Review of Systems: unchanged Mental Status Exam Mental Status Exam Patient Appearance: Well Grooomed and Appropriate Patient Orientation: Person, Place, Time and Situation Level of Consciousness: Awake Patient Behavior: Appropriate, Cooperative, Passive and Good Eye Contact Mood Description: Depressed Affect Description: Constricted Patient Cognition Impaired: No Ability to Follow Directions: Good Speech Pattern: Clear Hallucinations: None Delusions: Not Present Thought Process: Intact and Goal Oriented Thought Content: positive for Suicidal Ideation (no plan currently) Depressive Symptoms: Increased Anxiety, Feelings of Worthlessness, Hopelessness, Isolating-Friends/Family, Unhappiness, Thoughts of /Suicide and Loss of Energy Judgement: Fair Diagnostics Vital Signs (24Hr): Vital Signs - 24 hr 09/22/24 20:00 09/23/24 08:00 Temperature 96.2 F L 97.6 F Pulse Rate 82 76 Respiratory Rate 16 20 Blood Pressure 118/67 113/69 Pulse Oximetry 96 97 Oxygen Delivery Method Room Air Room Air BMI result Body Mass Index 31.9 Labs 09/21/24 11:44 09/21/24 17:44 Labs: Laboratory Results - last 48 hr 09/21/24 09/21/24 09/22/24 14:09 17:44 08:03 Sodium 143 Potassium 3.9 Chloride 107 Carbon Dioxide 29 Anion Gap 11 L BUN 16 Creatinine 0.83 Estim Creat Clear Calc 76.7 Estimated GFR > 60 Random Glucose 86 Calcium 9.7 Magnesium 2.1 Total Bilirubin 0.3 AST 32 H ALT 44 H Alkaline Phosphatase 102 Total Protein 7.1 Albumin 4.1 Triglycerides 126 Cholesterol 207 H LDL Cholesterol, Calc 128 H HDL Cholesterol 54 TSH 3.49 Urine Color Yellow Urine Appearance Clear Urine pH 7.5 Ur Specific [place] 1.015 Urine Protein Negative Urine Glucose (UA) Negative Urine Ketones Negative Urine Blood Negative Urine Nitrite Negative Ur Leukocyte Esterase Negative Urine Opiates Screen Not Detected Ur Buprenorphine Scrn Not Detected Ur Oxycodone Screen Not Detected Urine Methadone Screen Not Detected Urine Fentanyl Screen Not Detected Ur Barbiturates Screen Not Detected Ur Phencyclidine Scrn Not Detected Ur Amphetamines Screen Not Detected U Benzodiazepines Scrn Not Detected Urine Cocaine Screen Not Detected U Marijuana (THC) Screen Not Detected Medications Medications Current Medications Acetaminophen (Acetaminophen 325 Mg Tablet) 650 mg PO Q6H PRN PRN Reason: Headache/Pain Mild Scale (1-3) Last Admin: 09/22/24 20:52 Dose: 650 mg Al Hydroxide/Mg Hydroxide (Magnesium Hydrox/Alum Hydrox 30 Ml Oral.Susp) 30 ml PO Q6H PRN PRN Reason: Heartburn/Nausea Aripiprazole (Aripiprazole 2 Mg Tablet) 2 mg PO BEDTIME [facility] Last Admin: 09/22/24 20:50 Dose: 2 mg Brexpiprazole (Brexpiprazole 1 Mg Tablet) 0.5 mg PO DAILY [facility] Last Admin: 09/23/24 08:44 Dose: 0.5 mg Clomipramine HCl (Clomipramine Hcl 25 Mg Capsule) 75 mg PO BEDTIME [facility] Last Admin: 09/22/24 20:51 Dose: 75 mg Clonazepam (Clonazepam 0.5 Mg Tablet) 0.5 mg PO BID [facility] Last Admin: 09/23/24 08:45 Dose: 0.5 mg Lorazepam (Lorazepam 1 Mg Tablet) 1 mg PO DAILY PRN PRN Reason: Panic Attack(S) Last Admin: 09/22/24 08:40 Dose: 1 mg Magnesium Hydroxide (Milk Of Magnesia 30 Ml Oral.Susp) 30 ml PO DAILY PRN PRN Reason: Constipation Omeprazole (Omeprazole 20 Mg Capsule.Dr) 20 mg PO DAILY@0630 [facility] Last Admin: 09/23/24 05:57 Dose: 20 mg Paroxetine HCl (Paroxetine Hcl 40 Mg Tablet) 40 mg PO BEDTIME [facility] Last Admin: 09/22/24 20:52 Dose: 40 mg Quetiapine Fumarate (Quetiapine Fumarate 400 Mg Tablet) 400 mg PO BEDTIME [facility] Last Admin: 09/22/24 20:50 Dose: 400 mg Quetiapine Fumarate (Quetiapine Fumarate 25 Mg Tablet) 25 mg PO Q6H PRN PRN Reason: AGITATION Last Admin: 09/22/24 08:40 Dose: 25 mg Allergies Allergies Allergy/AdvReac Type Severity Reaction Status Date / Time shellfish derived Allergy Severe DIFFICULTY Verified 09/21/24 10:47 [SHELLFISH DERIVED] BREATHING pseudoephedrine Allergy Intermediate AGITATION Verified 09/21/24 10:47 [From SUDAFED] pregabalin [From Lyrica] Allergy Dizziness Verified 09/21/24 10:47 Assessment & Plan Assessment & Plan (1) Depression, major, severe recurrence: Status: Resolved Code(s): F33.2 - Major depressive disorder, recurrent severe without psychotic features (2) PTSD (post-traumatic stress disorder): Status: Acute Code(s): F43.10 - Post-traumatic stress disorder, unspecified (3) Suicidal ideation: Status: Acute Code(s): R45.851 - Suicidal ideations Plan Pt is adm on cv will transition abilify to rexulti consider vraylar ck ekg anafranil levels consider ect consider change from paxil pts guilt approaches delusional proportions maintain 5 min cks inc klonapin 0.5 bid seroquel 25 q 6h prn for safety /anxiety seroquel 400 mg hs 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 in past used to be on invega /seroquel/ abilify monitor safety closely 09/23/24- transitioning medications watching for effect s/e or significant decline Patient educated on: medication risk/benefits Informed Consent: understands Reason for continued inpatient stay Substantial Risk for: harm to self and rapid decompensation Time Spent With Patient Time: Total time managing care of this patient today ____ minutes.
[2024-09-23 19:33] VITALS: BP 124/70; PULSE 80; TEMP 36.6; O2SAT 96
[2024-09-23] MEDS: clomiPRAMINE HCl 25 MG CAPSULE 75 MG PO (21:07)
[2024-09-23] MEDS: Acetaminophen 325 MG TABLET 650 MG PO (21:08)
[2024-09-23] MEDS: PARoxetine HCL 40 MG TABLET PO (21:09)
[2024-09-23] MEDS: ARIPiprazole 2 MG TABLET PO (21:09)
[2024-09-23] MEDS: QUEtiapine Fumarate 400 MG TABLET PO (21:10)
[2024-09-24] MEDS: LORazepam 1 MG TABLET PO (01:10)
[2024-09-24] MEDS: Omeprazole 20 MG CAPSULE.DR PO (06:13)
[2024-09-24 07:55] VITALS: BP 111/66; PULSE 75; RESP 18; TEMP 36.8; O2SAT 95
[2024-09-24] MEDS: Brexpiprazole 1 MG TABLET 0.5 MG PO ×2 (08:10→12:19)
[2024-09-24] MEDS: clonazePAM 0.5 MG TABLET PO ×2 (08:10→19:50)
--- NOTE | 2024-09-24 13:00 | CA_ITS ---
Transthoracic Echocardiogram Patient (Last, First, Middle): Alida Candelaria M Gender: Female Date of : 1955 Age: 68 Procedure Date: 09/24/2024 Procedure Type: Transthoracic Echocardiogram Location: S1 Height: 170.18 cm Weight: 92.08 kg BSA: 2.03 m2 Heart Rate: bpm BP: 111 / 66 mmHg Ad Writer: NEGAR Referring MD: Ovidio Williamson MD Well Logger: Joo Ramírez MD Symptoms: ? AWMI on ekg Study Quality: Fair ECG Rhythm: Sinus Conclusions: - 1. Normal LV ejection fraction of 60 65% with grade 1 diastolic dysfunction 2. Normal cardiac valvular Dopplers 3. Normal RV systolic pressure 4. Upper limits of normal ascending aortic size 5. No pericardial effusion Findings Left Ventricle Normal left ventricular size, thickness, and systolic function. The visually estimated ejection fraction is between 60-65%. There is no evidence of regional wall motion abnormalities. Spectral Doppler is indicative of an impaired relaxation filling pattern. E/E prime ratio is <8, consistent with normal filling pressures. Evidence suggests grade I (mild) diastolic dysfunction. Peak GLS is -16.9%, mildly depressed. Right Ventricle Normal right ventricular cavity size and systolic function. Atria Both atria are normal in size. Interatrial shunt cannot be excluded. Aortic Valve The aortic valve was not well visualized. There is no aortic valve stenosis. There is no aortic valve regurgitation. Mitral Valve Likely normal mitral valve structure and function. There is trace mitral valve regurgitation. There is no mitral valve stenosis. Pulmonic Valve The pulmonic valve was not well visualized. Tricuspid Valve Likely normal tricuspid valve structure and function. There is trace tricuspid valve regurgitation. The right ventricular systolic pressure is normal. The right ventricular systolic pressure is 20 mmHg. Normal right atrial pressure. There is no evidence of pulmonary hypertension. Great Vessels All visible segments of the aorta are normal in size. The pulmonary artery was not well visualized. Venous The inferior vena cava is normal in size and collapses greater than 50% with inspiration. Pericardium/Pleural There is no evidence of pericardial effusion. Prior Study Comparison No prior study available for comparison. Measurements 2D Linear Measurements IVSd: 1.06 0.6-0.9/0.6-1.0 cm LVIDd: 4.98 3.9-5.3/4.2-5.9 cm LVIDd Index: 2.45 2.4-3.2/2.2-3.1 cm/m2 LVIDs: 3.72 2.0-3.6 cm LVPWd: 0.93 0.7-1.1 cm LA Diam: 3.20 2.7-3.8/3.0-4.0 cm LAIDs Index: 1.58 1.5-2.3 cm/m2 LV Mass: 223.71 67-162/88-224 g LV Mass Index: 110.20 43-95/49-115 g/m2 LVOT Diam: 2.10 3.0+(-)1.3 cm 2D Systolic Function EF 4C: 65.20 >55% EF 2C: 62.80 >55% EF BiP: 62.70 >55% Mitral Valve MV Pk E: 0.63 MV PK A: 0.88 MV Decel Time: 213.00 E/A: 0.70 E'Lateral: 8.81 E'Medial: 6.85 E/E' Med: 9.30 E/E' Lat: 7.20 PHT: 62.00 MVA PHT: 3.55 Decel Snyder: 2.98 Aortic Valve AoV Pk Baldev: 1.38 AoV Mn Baldev: 0.91 AoV VTI: 0.32 AoV Pk Grad: 8.00 Aov Mn Grad: 4.00 EVELYN Cont.VTI: 2.85 LVOT LVOT Pk Baldev: 1.19 LVOT Mn Baldev: 0.77 LVOT VTI: 0.26 LVOT Pk Grad: 6.00 LVOT Mn Grad: 3.00 LVOT Diam: 2.10 LVOT Area: 3.46 Diastolic Function MV Pk E: 0.63 MV Pk A: 0.88 E/A: 0.70 E'Medial: 6.85 E/E' Med: 9.30 E' Laterial: 8.81 E/E' Lat: 7.20 Right Ventricle TAPSE (mm): 19.40 TVS' Baldev: 10.20 Tricuspid Valve TR Pk Baldev: 2.09 TR Pk Grad: 17.00 RA Press: 3.00 RVSP: 20.00 Great Vessels Aorta Sinus of Valsalva: 3.17 2.0-3.5 cm Ao Asc: 3.50 2.1-3.4 cm Ao Arch: 3.10 Updated in Other Vendor System with Status of Final Joo Ramírez MD electronically signed on 09/24/2024 3:26:48 PM with status of Final
[2024-09-24 13:11] VITALS: BMI 32.5
--- NOTE | 2024-09-24 14:33 | HO.PSYCHPN ---
Subjective Subjective Date of Service: 09/24/24 Reason For Visit: SI Subjective Notes: Conditional Voluntary Healthcare Proxy: No Interim History: pt depressed withdrawn anxious overwhelmed still with si combination of guilt and suffering. pt has not self harmed has been going to [facility]. Mental Status Exam Mental Status Exam Patient Appearance: Well Grooomed and Appropriate Patient Orientation: Person, Place, Time and Situation Level of Consciousness: Awake Patient Behavior: Appropriate, Cooperative, Passive and Good Eye Contact Mood Description: Depressed and Apprehensive Affect Description: Constricted Patient Cognition Impaired: No Ability to Follow Directions: Good Speech Pattern: Clear Hallucinations: None Delusions: Not Present Thought Process: Intact and Goal Oriented Thought Content: positive for Suicidal Ideation (no plan currently) Depressive Symptoms: Increased Anxiety, Feelings of Worthlessness, Hopelessness, Isolating-Friends/Family, Unhappiness, Thoughts of /Suicide and Loss of Energy Judgement: Fair Diagnostics Vital Signs (24Hr): Vital Signs - 24 hr 09/23/24 19:33 09/24/24 07:55 Temperature 97.9 F 98.2 F Pulse Rate 80 75 Respiratory Rate 18 Blood Pressure 124/70 111/66 Pulse Oximetry 96 95 Oxygen Delivery Method Room Air Room Air BMI result Body Mass Index 32.5 Labs 09/21/24 11:44 09/21/24 17:44 Medications Medications Current Medications Acetaminophen (Acetaminophen 325 Mg Tablet) 650 mg PO Q6H PRN PRN Reason: Headache/Pain Mild Scale (1-3) Last Admin: 09/23/24 21:08 Dose: 650 mg Al Hydroxide/Mg Hydroxide (Magnesium Hydrox/Alum Hydrox 30 Ml Oral.Susp) 30 ml PO Q6H PRN PRN Reason: Heartburn/Nausea Brexpiprazole (Brexpiprazole 1 Mg Tablet) 1 mg PO DAILY [facility] Clomipramine HCl (Clomipramine Hcl 25 Mg Capsule) 75 mg PO BEDTIME [facility] Last Admin: 09/23/24 21:07 Dose: 75 mg Clonazepam (Clonazepam 0.5 Mg Tablet) 0.5 mg PO BID [facility] Last Admin: 09/24/24 08:10 Dose: 0.5 mg Lorazepam (Lorazepam 1 Mg Tablet) 1 mg PO DAILY PRN PRN Reason: Panic Attack(S) Last Admin: 09/24/24 01:10 Dose: 1 mg Magnesium Hydroxide (Milk Of Magnesia 30 Ml Oral.Susp) 30 ml PO DAILY PRN PRN Reason: Constipation Omeprazole (Omeprazole 20 Mg Capsule.Dr) 20 mg PO DAILY@0630 [facility] Last Admin: 09/24/24 06:13 Dose: 20 mg Paroxetine HCl (Paroxetine Hcl 40 Mg Tablet) 40 mg PO BEDTIME [facility] Last Admin: 09/23/24 21:09 Dose: 40 mg Quetiapine Fumarate (Quetiapine Fumarate 400 Mg Tablet) 400 mg PO BEDTIME [facility] Last Admin: 09/23/24 21:10 Dose: 400 mg Quetiapine Fumarate (Quetiapine Fumarate 25 Mg Tablet) 25 mg PO Q6H PRN PRN Reason: AGITATION Last Admin: 09/22/24 08:40 Dose: 25 mg Allergies Allergies Allergy/AdvReac Type Severity Reaction Status Date / Time shellfish derived Allergy Severe DIFFICULTY Verified 09/21/24 10:47 [SHELLFISH DERIVED] BREATHING pseudoephedrine Allergy Intermediate AGITATION Verified 09/21/24 10:47 [From SUDAFED] pregabalin [From Lyrica] Allergy Dizziness Verified 09/21/24 10:47 Assessment & Plan Assessment & Plan (1) Depression, major, severe recurrence: Status: Resolved Code(s): F33.2 - Major depressive disorder, recurrent severe without psychotic features (2) PTSD (post-traumatic stress disorder): Status: Acute Code(s): F43.10 - Post-traumatic stress disorder, unspecified (3) Suicidal ideation: Status: Acute Code(s): R45.851 - Suicidal ideations Plan Pt is adm on cv will transition abilify to rexulti consider vraylar ck ekg anafranil levels consider ect consider change from paxil pts guilt approaches delusional proportions maintain 5 min cks inc klonapin 0.5 bid seroquel 25 q 6h prn for safety /anxiety seroquel 400 mg hs 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 in past used to be on invega /seroquel/ abilify monitor safety closely 09/23/24- transitioning medications watching for effect s/e or significant decline 09/24/23 Agitated depressed use seroquel klonapin inc rexulti 1mg Patient educated on: diagnosis and medication risk/benefits Informed Consent: understands Reason for continued inpatient stay Substantial Risk for: harm to self and rapid decompensation Time Spent With Patient Time: Total time managing care of this patient today ____ minutes.
[2024-09-24 19:19] VITALS: BP 139/64; PULSE 79; TEMP 36.4; O2SAT 95
[2024-09-24] MEDS: Acetaminophen 325 MG TABLET 650 MG PO (19:50)
[2024-09-24] MEDS: QUEtiapine Fumarate 400 MG TABLET PO (19:50)
[2024-09-24] MEDS: PARoxetine HCL 40 MG TABLET PO (19:50)
[2024-09-24] MEDS: clomiPRAMINE HCl 25 MG CAPSULE 75 MG PO (19:50)
[2024-09-25] MEDS: Omeprazole 20 MG CAPSULE.DR PO (05:05)
[2024-09-25] MEDS: LORazepam 1 MG TABLET PO (05:05)
[2024-09-25] MEDS: Loperamide HCl 2 MG CAPSULE 4 MG PO (06:28)
--- NOTE | 2024-09-25 06:42 | PC.NURSE ---
0615 pt reports diarrhea x5. pt states I should not have eaten all that ice cream. dr weston contacted notified of 1. diarrhea episodes x 5 in the past hr. 2. hx of IBS 3. pt. reports despite intolerance to ice cream ate several cups of ice cream earlier in the night. plan imodium 4 mg po
[2024-09-25 08:00] VITALS: BP 131/65; PULSE 85; RESP 18; TEMP 36.4; O2SAT 97
[2024-09-25] MEDS: Brexpiprazole 1 MG TABLET PO (08:20)
[2024-09-25] MEDS: clonazePAM 0.5 MG TABLET PO ×2 (08:21→20:46)
[2024-09-25] MEDS: Magnesium Hydrox/Alum Hydrox 30 ML ORAL.SUSP PO (10:57)
--- NOTE | 2024-09-25 16:37 | HO.PSYCHPN ---
Subjective Subjective Date of Service: 09/25/24 Reason For Visit: SI Subjective Notes: Conditional Voluntary Healthcare Proxy: No Guardianship: No Interim History: Patient seen psychiatric follow-up the patient is mood has improved today she is tolerating the Rexulti at 1 mg States she is feeling more like herself no intrusive self-harming thoughts. Had difficult night's sleep last night secondary to irritable bowel attending groups has met with Had echo Medication Compliance: Yes Mental Status Exam Mental Status Exam Patient Appearance: Well Grooomed and Appropriate Patient Orientation: Person, Place, Time and Situation Level of Consciousness: Awake Patient Behavior: Appropriate, Cooperative, Passive and Good Eye Contact Mood Description: Constricted Affect Description: Calm Patient Cognition Impaired: No Ability to Follow Directions: Good Speech Pattern: Clear Hallucinations: None Delusions: Not Present Thought Process: Intact and Goal Oriented Thought Content: positive for Suicidal Ideation (no plan currently) Depressive Symptoms: Increased Anxiety, Feelings of Worthlessness, Isolating-Friends/Family, Unhappiness and Loss of Energy Judgement: Good Judgement and Insight: Patient with improved judgment and thinking. Future oriented trying significant unconscious way to have less harsh self judgment denies active thoughts of self-harm tolerating Rexulti denies any current active self-harming thoughts no hallucinations no delusional material Guilty ruminations in better control Diagnostics Vital Signs (24Hr): Vital Signs - 24 hr 09/24/24 19:19 09/25/24 08:00 Temperature 97.5 F 97.5 F Pulse Rate 79 85 Respiratory Rate 18 Blood Pressure 139/64 131/65 Pulse Oximetry 95 97 Oxygen Delivery Method Room Air Room Air BMI result Body Mass Index 32.5 Labs 09/21/24 11:44 09/21/24 17:44 EKG EKG Comment: Echocardiogram reviewed no evidence IA ejection fraction within normal limits Medications Medications Current Medications Acetaminophen (Acetaminophen 325 Mg Tablet) 650 mg PO Q6H PRN PRN Reason: Headache/Pain Mild Scale (1-3) Last Admin: 09/24/24 19:50 Dose: 650 mg Al Hydroxide/Mg Hydroxide (Magnesium Hydrox/Alum Hydrox 30 Ml Oral.Susp) 30 ml PO Q6H PRN PRN Reason: Heartburn/Nausea Last Admin: 09/25/24 10:57 Dose: 30 ml Brexpiprazole (Brexpiprazole 1 Mg Tablet) 1.5 mg PO DAILY [facility] Clomipramine HCl (Clomipramine Hcl 25 Mg Capsule) 75 mg PO BEDTIME [facility] Last Admin: 09/24/24 19:50 Dose: 75 mg Clonazepam (Clonazepam 0.5 Mg Tablet) 0.5 mg PO BID [facility] Last Admin: 09/25/24 08:21 Dose: 0.5 mg Loperamide HCl (Loperamide Hcl 2 Mg Capsule) 4 mg PO Q6H PRN PRN Reason: Diarrhea Last Admin: 09/25/24 06:28 Dose: 4 mg Lorazepam (Lorazepam 1 Mg Tablet) 1 mg PO DAILY PRN PRN Reason: Panic Attack(S) Last Admin: 09/25/24 05:05 Dose: 1 mg Magnesium Hydroxide (Milk Of Magnesia 30 Ml Oral.Susp) 30 ml PO DAILY PRN PRN Reason: Constipation Omeprazole (Omeprazole 20 Mg Capsule.Dr) 20 mg PO DAILY@0630 [facility] Last Admin: 09/25/24 05:05 Dose: 20 mg Paroxetine HCl (Paroxetine Hcl 40 Mg Tablet) 40 mg PO BEDTIME [facility] Last Admin: 09/24/24 19:50 Dose: 40 mg Quetiapine Fumarate (Quetiapine Fumarate 400 Mg Tablet) 400 mg PO BEDTIME [facility] Last Admin: 09/24/24 19:50 Dose: 400 mg Quetiapine Fumarate (Quetiapine Fumarate 25 Mg Tablet) 25 mg PO Q6H PRN PRN Reason: AGITATION Last Admin: 09/22/24 08:40 Dose: 25 mg Allergies Allergies Allergy/AdvReac Type Severity Reaction Status Date / Time shellfish derived Allergy Severe DIFFICULTY Verified 09/21/24 10:47 [SHELLFISH DERIVED] BREATHING pseudoephedrine Allergy Intermediate AGITATION Verified 09/21/24 10:47 [From SUDAFED] pregabalin [From Lyrica] Allergy Dizziness Verified 09/21/24 10:47 Assessment & Plan Assessment & Plan (1) Depression, major, severe recurrence: Status: Resolved Code(s): F33.2 - Major depressive disorder, recurrent severe without psychotic features (2) PTSD (post-traumatic stress disorder): Status: Acute Code(s): F43.10 - Post-traumatic stress disorder, unspecified (3) Suicidal ideation: Status: Acute Code(s): R45.851 - Suicidal ideations Plan Pt is adm on cv will transition abilify to rexulti consider vraylar ck ekg anafranil levels consider ect consider change from paxil pts guilt approaches delusional proportions maintain 5 min cks inc klonapin 0.5 bid seroquel 25 q 6h prn for safety /anxiety seroquel 400 mg hs 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 in past used to be on invega /seroquel/ abilify monitor safety closely 09/23/24- transitioning medications watching for effect s/e or significant decline 09/24/23 Agitated depressed use seroquel klonapin inc rexulti 1mg 09/25/2023 Increase Rexulti to 1.5 mg maintain Anafranil and Paxil for now patient did show clear improvement less in the way of harsh self judgment is hopeful she can be discharged in the next 3 days. Seems more relaxed and like herself seems better with the Klonopin 0.5 b.i.d. Echocardiogram done because of EKG changes was benign unremarkable no evidence of IA ejection fraction within normal limits Patient educated on: diagnosis, medication risk/benefits and therapeutic strategies Reason for continued inpatient stay Substantial Risk for: harm to self and rapid decompensation Time Spent With Patient Time: Total time managing care of this patient today ____ minutes.
[2024-09-25 20:00] VITALS: BP 139/63; PULSE 77; TEMP 36.3; O2SAT 96
[2024-09-25] MEDS: QUEtiapine Fumarate 400 MG TABLET PO (20:46)
[2024-09-25] MEDS: PARoxetine HCL 40 MG TABLET PO (20:46)
[2024-09-25] MEDS: clomiPRAMINE HCl 25 MG CAPSULE 75 MG PO (20:47)
[2024-09-25] MEDS: Acetaminophen 325 MG TABLET 650 MG PO (20:47)
[2024-09-26] MEDS: Loperamide HCl 2 MG CAPSULE 4 MG PO ×3 (03:44→20:45)
[2024-09-26 05:03] LABS: Clomipramine 244 mcg/L (50-250); Clomipramine + Desmethylclom 584 mcg/L (200-600); Desmethylclomipramine 340 mcg/L (150-350)
[2024-09-26] MEDS: Omeprazole 20 MG CAPSULE.DR PO (06:15)
--- NOTE | 2024-09-26 08:45 | P.PNPSI_ITS ---
Subjective Subjective Date of Service: 09/26/24 Reason For Visit: SI Subjective Notes: Conditional Voluntary Healthcare Proxy: No Guardianship: No Medical Problems Affecting Mental Status: No Interim History: 68 yo MWF reports managing change to rexulti ok- some foggy brain this am but cleared up but pt was also somewhat dehydrated as diarrhea x 4 despite immodium- hopes that isn't secondary to rexulti- hx ibs and could be anxiety about dc abilify on 1.5mg of rexulti with brighter affect- more hopeful - hoping not to get depressed and not to have td/rabbit syndrome Medication Compliance: Yes Side effects from medications: Yes (co fogginess in am , will see if continues or if unrelated) Attending Groups: Yes Review of Systems Acute medical concerns: No Review of Systems: see hpi Mental Status Exam Mental Status Exam Patient Appearance: Well Grooomed and Appropriate Patient Orientation: Person, Place, Time and Situation Level of Consciousness: Awake Patient Behavior: Appropriate and Cooperative Behavior Comments: appears to have brighter more hopeful outlook Mood Description: Calm Affect Description: Calm and Appropriate Patient Cognition Impaired: No Ability to Follow Directions: Good Speech Pattern: Clear Hallucinations: None Delusions: Not Present Thought Process: Intact Thought Content: positive for Goal Oriented Depressive Symptoms: Unexplained Stomach Pain (? diarrhea worsened with anxiety about med change) Judgement: Good Diagnostics Vital Signs (24Hr): Vital Signs - 24 hr 09/25/24 20:00 Temperature 97.3 F Pulse Rate 77 Blood Pressure 139/63 Pulse Oximetry 96 Oxygen Delivery Method Room Air BMI result Body Mass Index 32.5 Labs 09/21/24 11:44 09/21/24 17:44 Labs: Laboratory Results - last 48 hr 09/22/24 08:03 Clomipramine 244 Desmethylclomipramine 340 Clomipramine&N-Desclom 584 Medications Medications Current Medications Acetaminophen (Acetaminophen 325 Mg Tablet) 650 mg PO Q6H PRN PRN Reason: Headache/Pain Mild Scale (1-3) Last Admin: 09/25/24 20:47 Dose: 650 mg Al Hydroxide/Mg Hydroxide (Magnesium Hydrox/Alum Hydrox 30 Ml Oral.Susp) 30 ml PO Q6H PRN PRN Reason: Heartburn/Nausea Last Admin: 09/25/24 10:57 Dose: 30 ml Brexpiprazole (Brexpiprazole 1 Mg Tablet) 1.5 mg PO DAILY [facility] Clomipramine HCl (Clomipramine Hcl 25 Mg Capsule) 75 mg PO BEDTIME [facility] Last Admin: 09/25/24 20:47 Dose: 75 mg Clonazepam (Clonazepam 0.5 Mg Tablet) 0.5 mg PO BID [facility] Last Admin: 09/25/24 20:46 Dose: 0.5 mg Loperamide HCl (Loperamide Hcl 2 Mg Capsule) 4 mg PO Q6H PRN PRN Reason: Diarrhea Last Admin: 09/26/24 03:44 Dose: 4 mg Lorazepam (Lorazepam 1 Mg Tablet) 1 mg PO DAILY PRN PRN Reason: Panic Attack(S) Last Admin: 09/25/24 05:05 Dose: 1 mg Magnesium Hydroxide (Milk Of Magnesia 30 Ml Oral.Susp) 30 ml PO DAILY PRN PRN Reason: Constipation Omeprazole (Omeprazole 20 Mg Capsule.Dr) 20 mg PO DAILY@0630 [facility] Last Admin: 09/26/24 06:15 Dose: 20 mg Paroxetine HCl (Paroxetine Hcl 40 Mg Tablet) 40 mg PO BEDTIME [facility] Last Admin: 09/25/24 20:46 Dose: 40 mg Quetiapine Fumarate (Quetiapine Fumarate 400 Mg Tablet) 400 mg PO BEDTIME [facility] Last Admin: 09/25/24 20:46 Dose: 400 mg Quetiapine Fumarate (Quetiapine Fumarate 25 Mg Tablet) 25 mg PO Q6H PRN PRN Reason: AGITATION Last Admin: 09/22/24 08:40 Dose: 25 mg Allergies Allergies Allergy/AdvReac Type Severity Reaction Status Date / Time shellfish derived Allergy Severe DIFFICULTY Verified 09/21/24 10:47 [SHELLFISH DERIVED] BREATHING pseudoephedrine Allergy Intermediate AGITATION Verified 09/21/24 10:47 [From SUDAFED] pregabalin [From Lyrica] Allergy Dizziness Verified 09/21/24 10:47 Assessment & Plan Assessment & Plan (1) Depression, major, severe recurrence: Status: Resolved Code(s): F33.2 - Major depressive disorder, recurrent severe without psychotic features (2) PTSD (post-traumatic stress disorder): Status: Acute Code(s): F43.10 - Post-traumatic stress disorder, unspecified (3) Suicidal ideation: Status: Acute Code(s): R45.851 - Suicidal ideations Plan Pt is adm on cv will transition abilify to rexulti consider vraylar ck ekg anafranil levels consider ect consider change from paxil pts guilt approaches delusional proportions maintain 5 min cks inc klonapin 0.5 bid seroquel 25 q 6h prn for safety /anxiety seroquel 400 mg hs 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 in past used to be on invega /seroquel/ abilify monitor safety closely 09/23/24- transitioning medications watching for effect s/e or significant decline 09/24/23 Agitated depressed use seroquel klonapin inc rexulti 1mg 09/25/2023 Increase Rexulti to 1.5 mg maintain Anafranil and Paxil for now patient did show clear improvement less in the way of harsh self judgment is hopeful she can be discharged in the next 3 days. Seems more relaxed and like herself seems better with the Klonopin 0.5 b.i.d. Echocardiogram done because of EKG changes was benign unremarkable no evidence of CT ejection fraction within normal limits Patient educated on: medication risk/benefits Informed Consent: understands Reason for continued inpatient stay Substantial Risk for: rapid decompensation Time Spent With Patient Time: Total time managing care of this patient today ____ minutes.
[2024-09-26] MEDS: Brexpiprazole 1 MG TABLET 1.5 MG PO (09:17)
[2024-09-26] MEDS: clonazePAM 0.5 MG TABLET PO ×2 (09:19→20:46)
[2024-09-26 20:00] VITALS: BP 135/65; PULSE 77; RESP 16; TEMP 36.1; O2SAT 97
[2024-09-26] MEDS: QUEtiapine Fumarate 400 MG TABLET PO (20:45)
[2024-09-26] MEDS: PARoxetine HCL 40 MG TABLET PO (20:45)
[2024-09-26] MEDS: clomiPRAMINE HCl 25 MG CAPSULE 75 MG PO (20:45)
[2024-09-26] MEDS: Acetaminophen 325 MG TABLET 650 MG PO (20:45)
[2024-09-27] MEDS: Loperamide HCl 2 MG CAPSULE 4 MG PO ×3 (05:06→20:41)
[2024-09-27] MEDS: Omeprazole 20 MG CAPSULE.DR PO ×2 (06:10→15:52)
[2024-09-27 08:06] VITALS: BP 110/71; PULSE 87; RESP 18; TEMP 36.4; O2SAT 95
[2024-09-27] MEDS: Brexpiprazole 1 MG TABLET 1.5 MG PO (08:45)
[2024-09-27] MEDS: clonazePAM 0.5 MG TABLET PO ×2 (08:45→20:41)
[2024-09-27] MEDS: Magnesium Hydrox/Alum Hydrox 30 ML ORAL.SUSP PO (11:24)
--- NOTE | 2024-09-27 12:09 | HO.PSYCHPN ---
Subjective Subjective Date of Service: 09/27/24 Reason For Visit: SI Subjective Notes: Conditional Voluntary Healthcare Proxy: No Guardianship: No Medical Problems Affecting Mental Status: No Interim History: 68 yo reporting some fuzziness still from switch from abilify to rexulti, also terrible gas- - diarrhea- though either maybe due to other than med change- gave her maalox and simethecone, had kub- looks like lots of gas- no read from radiologist yet- pt going to stick to fluids for today- pleased with med change feeling less depressed and decrease? rabbit td Also looks like pt has been off omeprazole will restart- on med rec Medication Compliance: Yes Side effects from medications: No (? gi or foggy) Attending Groups: Yes Review of Systems Acute medical concerns: No Medical Review of Systems: changed (gas,dairrhea ruq pain) Mental Status Exam Mental Status Exam Narrative: appears brighter Patient Appearance: Well Grooomed and Appropriate Patient Orientation: Person, Place, Time and Situation Level of Consciousness: Awake Patient Behavior: Appropriate and Cooperative Mood Description: Calm Affect Description: Blunted Patient Cognition Impaired: No Ability to Follow Directions: Good Speech Pattern: Clear Hallucinations: None Thought Content: positive for Intact Judgement: Good Diagnostics Vital Signs (24Hr): Vital Signs - 24 hr 09/26/24 20:00 09/27/24 08:06 Temperature 97 F 97.5 F Pulse Rate 77 87 Respiratory Rate 16 18 Blood Pressure 135/65 110/71 Pulse Oximetry 97 95 Oxygen Delivery Method Room Air Room Air BMI result Body Mass Index 32.5 Labs 09/21/24 11:44 09/21/24 17:44 Labs: Laboratory Results - last 48 hr 09/22/24 08:03 Clomipramine 244 Desmethylclomipramine 340 Clomipramine&N-Desclom 584 Medications Medications Current Medications Acetaminophen (Acetaminophen 325 Mg Tablet) 650 mg PO Q6H PRN PRN Reason: Headache/Pain Mild Scale (1-3) Last Admin: 09/26/24 20:45 Dose: 650 mg Al Hydroxide/Mg Hydroxide (Magnesium Hydrox/Alum Hydrox 30 Ml Oral.Susp) 30 ml PO Q6H PRN PRN Reason: Heartburn/Nausea Last Admin: 09/27/24 11:24 Dose: 30 ml Brexpiprazole (Brexpiprazole 1 Mg Tablet) 1.5 mg PO DAILY [facility] Last Admin: 09/27/24 08:45 Dose: 1.5 mg Clomipramine HCl (Clomipramine Hcl 25 Mg Capsule) 75 mg PO BEDTIME [facility] Last Admin: 09/26/24 20:45 Dose: 75 mg Clonazepam (Clonazepam 0.5 Mg Tablet) 0.5 mg PO BID [facility] Last Admin: 09/27/24 08:45 Dose: 0.5 mg Loperamide HCl (Loperamide Hcl 2 Mg Capsule) 4 mg PO Q6H PRN PRN Reason: Diarrhea Last Admin: 09/27/24 05:06 Dose: 4 mg Lorazepam (Lorazepam 1 Mg Tablet) 1 mg PO DAILY PRN PRN Reason: Panic Attack(S) Last Admin: 09/25/24 05:05 Dose: 1 mg Magnesium Hydroxide (Milk Of Magnesia 30 Ml Oral.Susp) 30 ml PO DAILY PRN PRN Reason: Constipation Omeprazole (Omeprazole 20 Mg Capsule.Dr) 20 mg PO DAILY@0630 [facility] Last Admin: 09/27/24 06:10 Dose: 20 mg Paroxetine HCl (Paroxetine Hcl 40 Mg Tablet) 40 mg PO BEDTIME [facility] Last Admin: 09/26/24 20:45 Dose: 40 mg Quetiapine Fumarate (Quetiapine Fumarate 400 Mg Tablet) 400 mg PO BEDTIME [facility] Last Admin: 09/26/24 20:45 Dose: 400 mg Quetiapine Fumarate (Quetiapine Fumarate 25 Mg Tablet) 25 mg PO Q6H PRN PRN Reason: AGITATION Last Admin: 09/22/24 08:40 Dose: 25 mg Allergies Allergies Allergy/AdvReac Type Severity Reaction Status Date / Time shellfish derived Allergy Severe DIFFICULTY Verified 09/21/24 10:47 [SHELLFISH DERIVED] BREATHING pseudoephedrine Allergy Intermediate AGITATION Verified 09/21/24 10:47 [From SUDAFED] pregabalin [From Lyrica] Allergy Dizziness Verified 09/21/24 10:47 Assessment & Plan Assessment & Plan (1) Depression, major, severe recurrence: Status: Resolved Code(s): F33.2 - Major depressive disorder, recurrent severe without psychotic features (2) PTSD (post-traumatic stress disorder): Status: Acute Code(s): F43.10 - Post-traumatic stress disorder, unspecified (3) Suicidal ideation: Status: Acute Code(s): R45.220 - Suicidal ideations Plan Pt is adm on cv will transition abilify to rexulti consider vraylar ck ekg anafranil levels consider ect consider change from paxil pts guilt approaches delusional proportions maintain 5 min cks inc klonapin 0.5 bid seroquel 25 q 6h prn for safety /anxiety seroquel 400 mg hs 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 in past used to be on invega /seroquel/ abilify monitor safety closely 09/23/24- transitioning medications watching for effect s/e or significant decline 09/24/23 Agitated depressed use seroquel klonapin inc rexulti 1mg 09/25/2023 Increase Rexulti to 1.5 mg maintain Anafranil and Paxil for now patient did show clear improvement less in the way of harsh self judgment is hopeful she can be discharged in the next 3 days. Seems more relaxed and like herself seems better with the Klonopin 0.5 b.i.d. Echocardiogram done because of EKG changes was benign unremarkable no evidence of TN ejection fraction within normal limits 09/27/24 kub gas, hold solids for now, keep up fluids- awaiting radiology read Patient educated on: medication risk/benefits and medical condition Informed Consent: understands Reason for continued inpatient stay Substantial Risk for: rapid decompensation Time Spent With Patient Time: Total time managing care of this patient today ____ minutes.
[2024-09-27] MEDS: Ondansetron ODT 4 MG TAB.RAPDIS TRANSLINGU (14:57)
--- NOTE | 2024-09-27 15:10 | PC.NURSE ---
Alida c/o 05/02 RUQ pain and nausea, denied any pain radiating to any other area. Dr. Del Toro notified and simethicone ordered. PRN Zofran administered for nausea.
[2024-09-27] MEDS: Simethicone 80 MG TAB.CHEW PO (15:33)
--- NOTE | 2024-09-27 16:31 | PC.NURSE ---
Patient has new orders for Simethicone and Omeprazole. Also for XR KUB which was completed today; awaiting report. Patient reported a good effect from Simethicone. Will continue to monitor.
[2024-09-27 20:00] VITALS: BP 146/72; PULSE 88; RESP 18; TEMP 36; O2SAT 95
[2024-09-27] MEDS: clomiPRAMINE HCl 25 MG CAPSULE 75 MG PO (20:40)
[2024-09-27] MEDS: QUEtiapine Fumarate 400 MG TABLET PO (20:41)
[2024-09-27] MEDS: PARoxetine HCL 40 MG TABLET PO (20:41)
--- NOTE | 2024-09-27 22:29 | PM.EVENT ---
Event Note Date of Service: 09/27/24 Event Note: Was notified by nurse regarding KUB findings. KUB with gaseous distention of the stomach. Patient is not obstructed. No nausea or vomiting and is tolerating p.o. diet. She is having loose stools. No abdominal pain or tenderness. Will increase omeprazole to 40 mg daily. Simethicone p.r.n.. Ordered CT scan of the abdomen/pelvis. Ordered GI panel. Currently hemodynamically stable Time Spent With Patient Time: Total time managing care of this patient today ____ minutes.
[2024-09-27] MEDS: Famotidine 20 MG TABLET 40 MG PO (22:41)
[2024-09-27] MEDS: Simethicone 80 MG TAB.CHEW 160 MG PO (22:41)
--- NOTE | 2024-09-27 23:00 | PC.NURSE ---
Received call from radiology with positive KUB results, notification sent to Dr. Paige. CT of abdomen and pelvis with contrast ordered, patient to be NPO in the morning for the test, will need IV access. Patient reports multiple episodes of loose stool, sample ordered and collected, results pending. Patient inform to stay NPO for the CT scan.
[2024-09-28 00:06] LABS: CDiff Gene PCR NEGATIVE (Negative)
[2024-09-28] MEDS: Simethicone 80 MG TAB.CHEW PO (03:52)
[2024-09-28] MEDS: Omeprazole 40 MG CAPSULE.DR PO (06:28)
[2024-09-28 07:48] VITALS: BP 126/80; PULSE 86; RESP 18; TEMP 36.4; O2SAT 98
[2024-09-28] MEDS: Brexpiprazole 1 MG TABLET 1.5 MG PO (08:12)
[2024-09-28] MEDS: clonazePAM 0.5 MG TABLET PO (08:13)
[2024-09-28] MEDS: Loperamide HCl 2 MG CAPSULE 4 MG PO (08:13)
[2024-09-28] MEDS: iohexoL 350 MG/ML 75 ML INFUS..BTL 85 ML IV (10:13)
[2024-09-28 10:52] LABS: Adenovirus F 40/41 Not Detected (Not Detect.); Astrovirus Not Detected (Not Detect.); Campylobacter Not Detected (Not Detect.); Cryptosporidium Not Detected (Not Detect.); Cyclospora cayetanensis Not Detected (Not Detect.); E. coli EAEC Not Detected (Not Detect.); E. coli EPEC Not Detected (Not Detect.); E. coli ETEC Not Detected (Not Detect.); E. coli STEC Not Detected (Not Detect.); Entamoeba histolytica Not Detected (Not Detect.); Giardia lamblia Not Detected (Not Detect.); Norovirus GI/GII Not Detected (Not Detect.); Plesiomonas shigelloides Not Detected (Not Detect.); Rotavirus A Not Detected (Not Detect.); Salmonella Not Detected (Not Detect.); Sapovirus Not Detected (Not Detect.); Shigella sp./EIEC Not Detected (Not Detect.); Vibrio Not Detected (Not Detect.); Vibrio Cholerae Not Detected (Not Detect.); Yersinia enterocolitica Not Detected (Not Detect.)
[2024-09-28 11:40] LABS: MANUAL DIFF FLAG NO
[2024-09-28 11:44] LABS: Basophils Percent Auto 0.3 % (0-2); Eosinophils Absolute Auto 0.4 X10*3/uL (0.0-0.4); Eosinophils Percent Auto 6.6 % (0-4); Hemoglobin 13.8 g/dl (12.0-16.0); Imm Gran Abs Auto 0.01 X10*3/uL (0.00-0.03); Imm Gran Pct Auto 0.2 % (0.0-0.4); Lymphocytes Absolute Auto 1.6 X10*3/uL (1.2-4.9); Lymphocytes Percent Auto 24.3 % (20-40); Mean Corpuscular HGB Conc 32.1 g/dl (31.0-35.0); Mean Corpuscular Hemoglobin 30.4 pg (27.0-33.0); Mean Corpuscular Volume 94.7 fL (80.0-98.0); Mean Platelet Volume 11.8 fL (9.4-12.3); Monocytes Absolute Auto 0.5 X10*3/uL (0.1-1.2); Monocytes Percent Auto 7.6 % (2-11); Platelet Count 205 X10*3/uL (160-400); Red Blood Count 4.54 X10*6/uL (4.20-5.50); Red Cell Distribution Width 13.9 % (11.0-16.0); White Blood Count 6.6 X10*3/uL (4.8-10.8)
[2024-09-28 12:07] LABS: Alanine Aminotransferase 440 U/L (0-31); Aspartate Amino Transferase 330 U/L (5-31); Bilirubin Direct 0.3 mg/dL (0.0-0.5); Bilirubin Total 0.7 mg/dL (0.0-1.0); Total Protein 6.9 g/dL (6.5-8.0)
[2024-09-28 12:17] LABS: Alanine Aminotransferase 444 U/L (0-31); Anion Gap 11 (12-20); Aspartate Amino Transferase 337 U/L (5-31); Bilirubin Total 0.7 mg/dL (0.0-1.0); Blood Urea Nitrogen 16 mg/dL (9-16); Calcium 9.3 mg/dL (8.4-10.2); Carbon Dioxide 28 mmol/L (22-29); Chloride 105 mmol/L (96-108); Creatinine Clr Calc Pharmacy 68.3; Estimated Glomerular Filt Rate 59; Glucose Random 131 mg/dL (60-115); Potassium 4.2 mmol/L (3.3-5.1); Sodium 140 mmol/L (135-145); Total Protein 7.1 g/dL (6.5-8.0)
[2024-09-28 12:28] LABS: Alkaline Phosphatase 232 U/L (39-117)
[2024-09-28 12:30] LABS: Alkaline Phosphatase 235 U/L (39-117)
[2024-09-28 13:35] LABS: Prothrombin Time 11.3 SEC (10.9-12.4)
[2024-09-28 13:45] LABS: Lactate Dehydrogenase 366 U/L (122-220)
[2024-09-28 13:51] LABS: Acetaminophen LAB < 3 mcg/mL (<30)
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
[2024-09-29 08:27] LABS: HBS Num1 70.83 mIU/mL (0-7.99); HBc Num1 0.09 S/CO (0.00-0.79); HBsAGNum1 0.34 S/CO (0.00-0.99); Hepatitis A Antibody IgM 0.14 Index (0-0.79); Hepatitis B Core Antibody Nonreactive (Nonreactive); Hepatitis B Surface Antigen Negative (Negative); ~HepC Num1 0.11 S/CO (0.00-0.79); ~Hepatitis A Antibody IgM Nonreactive (Nonreactive); ~Hepatitis B Surface Antibody REACTIVE (Nonreactive); ~Hepatitis C Antibody Nonreactive (Nonreactive)
== END 2024-09-28 16:50 | disposition short-term general hospital (02) | DRG 885 ==
LOC: HO.ED 14:24 → HO.PGERI 16:49
PROVIDERS: Nurse Practitioner Acute Care; Psychiatry & Neurology Psychiatry; Student in an Organized Health Care Education/Training Program; Admitting Provider Psychiatry & Neurology Psychiatry; Emergency Provider Emergency Medicine; PCP Nurse Practitioner Family; Visit Provider Psychiatry & Neurology Psychiatry
DX: F33.2 Major depressive disorder, recurrent severe without psychotic features (principal); R45.851 Suicidal ideations; F43.10 Post-traumatic stress disorder, unspecified; Z20.822 Contact with and (suspected) exposure to COVID-19; Z79.899 Other long term (current) drug therapy
CPT/HCPCS: 0241U; 36415; 74018; 74177; 80048; 80053; 80061; 80076; 80143; 80307; 80335; 81003; 82550; 83615; 83690; 83735; 84443; 85025; 85610; 86704; 86706; 86709; 86803; 87340; 87493; 87507; 93005; 93306; 93356; 99285; Q9967

== ENCOUNTER → 2024-09-21 11:05 | Outpatient (BNV) | payer MEDICARE, SELFPAY | PROVIDERS: Emergency Provider Emergency Medicine; PCP Nurse Practitioner Family; Visit Provider Internal Medicine Cardiovascular Disease | DX: R94.31 Abnormal electrocardiogram [ECG] [EKG] (principal) | CPT/HCPCS: 93010 ==

== ENCOUNTER 2024-09-21 16:20 | Outpatient (BNV) | payer MEDICARE, SELFPAY | END 2024-09-28 07:00 | PROVIDERS: Admitting Provider Psychiatry & Neurology Psychiatry; Emergency Provider Emergency Medicine; PCP Nurse Practitioner Family; Visit Provider Radiology Diagnostic Radiology | DX: R10.9 Unspecified abdominal pain (principal) | CPT/HCPCS: 74177 ==

== ENCOUNTER 2024-09-21 16:20 | Outpatient (BNV) | payer MEDICARE, SELFPAY | END 2024-09-27 16:08 | PROVIDERS: Admitting Provider Psychiatry & Neurology Psychiatry; Emergency Provider Emergency Medicine; PCP Nurse Practitioner Family; Visit Provider Radiology Diagnostic Radiology | DX: R93.89 Abnormal findings on diagnostic imaging of other specified body structures (principal); R10.11 Right upper quadrant pain | CPT/HCPCS: 74018 ==

== ENCOUNTER 2024-09-21 16:20 | Outpatient (BNV) | payer MEDICARE, SELFPAY | END 2024-09-24 13:00 | PROVIDERS: Admitting Provider Psychiatry & Neurology Psychiatry; Emergency Provider Emergency Medicine; PCP Nurse Practitioner Family; Visit Provider Internal Medicine Cardiovascular Disease | DX: I51.89 Other ill-defined heart diseases (principal); R93.1 Abnormal findings on diagnostic imaging of heart and coronary circulation | CPT/HCPCS: 93306; 93356 ==

== ENCOUNTER → 2024-09-21 16:20 | Outpatient (BNV) | payer MEDICARE, SELFPAY | PROVIDERS: Admitting Provider Psychiatry & Neurology Psychiatry; Emergency Provider Emergency Medicine; PCP Nurse Practitioner Family; Visit Provider Psychiatry & Neurology Psychiatry | DX: F33.2 Major depressive disorder, recurrent severe without psychotic features (principal); F43.10 Post-traumatic stress disorder, unspecified; R45.851 Suicidal ideations | CPT/HCPCS: 90792 ==

== ENCOUNTER 2024-09-28 15:00 | Inpatient (IN) | payer MEDICARE, SELFPAY ==
--- NOTE | 2024-09-28 15:04 | P.HPHOSP_ITS ---
History of Present Illness Date of Service: 09/28/24 Chief Complaint: nausea and diarrhea 68 year old women transferred to [facility] floor from [facility] due to abdominal pain, nausea, vomiting and diarrhea. She had labs drawn which showed elevated liver enzymes that was new compared to one week ago. stool studies and cdiff neg, abd ct showing possible mesenteritis. No obvious sign of infection noted. She will be admitted for further management of acute hepatitis. Review of Systems Review of Systems: Denies any recent fever chills or decrease in appetite respiratory denies any shortness of breath coverage production cardiovascular is adjustment of any PND or edema gastrointestinal denies any dysphagia abdominal pain nausea vomiting or diarrhea genitourinary denies any dysuria frequency or hematuria musculoskeletal denies any joint pain or swelling neuropsych denies any weakness or seizures all other systems reviewed are negative [facility] Medical History (Updated 09/28/24 @ 15:07 by Tati Guzman NP) Major depression, recurrent, chronic Dyspnea Osteopenia History of hyperglycemia Fatty liver Hepatitis Small airways disease Chronic restrictive lung disease History of shingles History of COVID-19 Stress incontinence GERD (gastroesophageal reflux disease) IBS (irritable bowel syndrome) Surgical History History of adenoidectomy Hx of tonsillectomy History of appendectomy History of cholecystectomy Social History Household Members: Family Household Members Other:: A son Housing: House Do you presently have visiting nurse or other home services: No Alcohol intake: current Alcohol intake frequency: holidays/special occasions only Patient Tobacco Use Status: Never used Tobacco e-Cigarette/Vaping Use: Never Used Second Hand Smoke Exposure: No Use of substances other than those prescribed or required for medical reasons: No Have you been hit, kicked, punched, or otherwise hurt by someone within the past year? If so, by whom?: No Do you feel safe in your current relationship?: Yes Is there a partner from a previous relationship who is making you feel unsafe now?: No Are you made to feel afraid or neglected: No Advance Directives: No Advance Directives Information Provided: No Do you have a plan to hurt others: No Plan Recently lost weight without trying: No Nutrition Risks: No Nutritional Risk Patient : No : No Poor oral hygiene: No service: No Sexual orientation: Straight/Heterosexual Meds Allergies Allergy/AdvReac Type Severity Reaction Status Date / Time shellfish derived Allergy Severe DIFFICULTY Verified 09/21/24 10:47 [SHELLFISH DERIVED] BREATHING pseudoephedrine Allergy Intermediate AGITATION Verified 09/21/24 10:47 [From SUDAFED] pregabalin [From Lyrica] Allergy Dizziness Verified 09/21/24 10:47 Active Medications: Current Medications Acetaminophen (Acetaminophen 325 Mg Tablet) 650 mg PO Q6H PRN PRN Reason: Pain, Mild 1-3,fever,headache Calcium Carbonate (Calcium Carbonate 750 Mg Tab.Chew) 750 mg PO Q4H PRN PRN Reason: Heartburn Lactated Ringer's (Lr) 1,000 mls @ 100 mls/hr IVCONT .Q10H HEATHER Magnesium Hydroxide (Milk Of Magnesia 30 Ml Oral.Susp) 30 ml PO DAILY PRN PRN Reason: Constipation Melatonin (Melatonin 3 Mg Tablet) 6 mg PO BEDTIME PRN PRN Reason: Insomnia Ondansetron HCl (Ondansetron Hcl 4 Mg/2 Ml Vial) 4 mg IVPUSH Q8H PRN PRN Reason: Nausea and Vomiting Sodium Chloride (0.9 % Sodium Chloride Flush 3 Ml Syringe) 3 ml IVFLUSH QSHIFT [facility] Home Medications ?Medication ?Instructions ?Recorded ?Confirmed ?Last Taken ?Type omeprazole 20 mg tablet,delayed 20 mg PO DAILY@0630 09/22/24 09/22/24 Unknown History release Physical Exam 2 Vital Signs and Narrative: Appearing in no acute distress head is normocephalic atraumatic eyes pupils are PERRLA sclera is anicteric mouth throat mucous membranes are intact and moist neck is supple no lymphadenopathy, no JVD noted lung sounds are clear to auscultation heart regular rate rhythm, clear S1, S2 positive bowel sounds, abdomen is soft, nontender neuro patient is alert x3, no focal deficits Assessment and Plan (1) Hepatitis: Status: Acute Plan 68 year old women tx from [facility] due to abdominal pain, nausea, and diarrhea. Diarrhea is improving Acute hepatitis Nausea and diarrhea Tylenol level neg, no ETOH, neg stool studies and cdiff, normal INR AST 337/ALT 444/ALK phos 232/bili 0.7, LDH [address] showing possible meseneritis IV fluids, pepcid, antiemetics as needed Hepatitis panel pending GI consultation pending Mental health continue home medications DVT prophylaxis with SCD boots Full code Quality Stroke Does the patient have a stroke diagnosis?: No VTE Prior VTE?: No VTE Risk Level:: Medical - moderate - high VTE Device Contraindication: N/A - Device Ordered VTE Drug Contraindication: Treatment Not Indicated
[2024-09-28 16:59] VITALS: BP 143/68; PULSE 77; RESP 18; TEMP 36.2; O2SAT 98
[2024-09-28] MEDS: Lactated Ringers 1,000 ML 100 ML IVCONT (17:21)
[2024-09-28] MEDS: 0.9 % Sodium Chloride Flush 3 ML SYRINGE IVFLUSH (17:22)
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
--- OUTSIDE RECORDS SUMMARY | 2024-09-28 17:42 | XMS_ITS | Data Portability ---
Author Organization [facility] Address [address] [place] [address] Assessment No assessment recorded. Plan of Treatment Reminders Order Date Submit Date Provider Last Modified By Organization Details Last Modified Time Details Appointments None recorded. Lab urinalysis , dipstick 2022 023 [email or web address] [facility], [address] [place] [address], [place], [address], 16:29:08 culture, urine 2022 023 [facility], [address] [place] [address], [place], [address], 10:06:34 Referral None recorded. Procedures None recorded. Surgeries None recorded. Imaging None recorded. Medication Orders None recorded. Patient TargetsNo targets recorded. Patient Instructions Encounter Date Encounter Id Patient Instructions Last Modified By Organization Details Last Modified Time 10/15/2022 [id number] We recommend you get a repeat urinalysis [...] routine FINAL REPORT abnormal Not Available [facility] ([facility]) [address], [place], [address], 10/18/2022 12:06:27 10/15/19 23 10/18/2022 URINE CULTU [...] ng units per mL Not Available [facility] ([facility]) [address], [place], [address], 10/18/2022 12:06:27 10/15/19 23 10/18/2022 URINE CULTU [...] thopr im/Unger lfa S Not Available [facility] ([facility]) [address], [place], [address], 10/18/2022 12:06:27 10/15/1910/15/2022 urina lysis , dipst ick Unknown Analyte Normal = light yellow Not Available [facility] [address], [place], [address], 10/15/2022 14:30:39 10/15/1910/15/2022 urina lysis , dipst ick Unknown Analyte Yellow Not Available [facility] [address], [place], [address], 10/15/2022 14:30:39 10/15/1910/15/2022 urina lysis , dipst ick Unknown Analyte Normal = clear Not Available [facility] [address], [place], [address], 10/15/2022 14:30:39 10/15/19 23 10/15/2022 urina lysis , dipst ick Unknown Analyte Cloudy Not Available [facility] [address], [place], [address], 10/15/2022 14:30:39 10/15/1910/15/2022 urina lysis , dipst ick Unknown Analyte Normal = negati ve Not Available [facility] [address], [place], [address], 10/15/2022 14:30:39 10/15/1910/15/2022 urina lysis , dipst ick Unknown Analyte Negati ve Not Available [facility] [address], [place], [address], 10/15/2022 14:30:39 10/15/19 23 10/15/2022 urina lysis , dipst ick Unknown Analyte Normal = Negati ve Not Available [facility] [address], [place], [address], 10/15/2022 14:30:39 10/15/1910/15/2022 urina lysis , dipst ick Unknown Analyte Negati ve Not Available [facility] [address], [place], [address], 10/15/2022 14:30:39 10/15/1910/15/2022 urina lysis , dipst ick Unknown Analyte Normal = Negati ve Not Available [facility] [address], [place], [address], 10/15/2022 14:30:39 10/15/19 23 10/15/2022 urina lysis , dipst ick Unknown Analyte Negati ve Not Available [facility] [address], [place], [address], 10/15/2022 14:30:39 10/15/1910/15/2022 urina lysis , dipst ick Unknown Analyte Normal = 1.010, 1.015, 1.020 Not Available [facility] [address], [place], [address], 10/15/2022 14:30:39 10/15/1910/15/2022 urina lysis , dipst ick Unknown Analyte 1.020 Not Available [facility] [address], [place], [address], 10/15/2022 14:30:39 10/15/1910/15/2022 urina lysis , dipst ick Unknown Analyte Normal = Negati ve Not Available [facility] [address], [place], [address], 10/15/2022 14:30:39 10/15/1910/15/2022 urina lysis , dipst ick Unknown Analyte Large Not Available [facility] [address], [place], [address], 10/15/2022 14:30:39 10/15/1910/15/2022 urina lysis , dipst ick Unknown Analyte Normal = 6.5, 7.0, 7.5, 8.0 Not Available [facility] [address], [place], [address], 10/15/2022 14:30:39 10/15/1910/15/2022 urina lysis , dipst ick Unknown Analyte 7.0 Not Available [facility] [address], [place], [address], 10/15/2022 14:30:39 10/15/1910/15/2022 urina lysis , dipst ick Unknown Analyte Normal = Negati ve Not Available [facility] [address], [place], [address], 10/15/2022 14:30:39 10/15/19 23 10/15/2022 urina lysis , dipst ick Unknown Analyte 30 mg/dL Not Available [facility] [address], [place], [address], 10/15/2022 14:30:39 10/15/1910/15/2022 urina lysis , dipst ick Unknown Analyte Normal = 0.2, 1.0 Not Available [facility] [address], [place], [address], 10/15/2022 14:30:39 10/15/19 23 10/15/2022 urina lysis , dipst ick Unknown Analyte 0.2 E.U./d L Not Available [facility] [address], [place], [address], 10/15/2022 14:30:39 10/15/1910/15/2022 urina lysis , dipst ick Unknown Analyte Normal = Negati ve Not Available [facility] [address], [place], [address], 10/15/2022 14:30:39 10/15/1910/15/2022 urina lysis , dipst ick Unknown Analyte Negati ve Not Available [facility] [address], [place], [address], 10/15/2022 14:30:39 10/15/1910/15/2022 urina lysis , dipst ick Unknown Analyte Normal = Negati ve Not Available [facility] [address], [place], [address], 10/15/2022 14:30:39 10/15/1910/15/2022 urina lysis , dipst ick Unknown Analyte Modera te Not Available [address] [facility] [address], [place], [address], 10/15/2022 14:30:39 Result Notes None recorded. Problems Name Problem SNOMED Code Status Onset Date Resolution Date Notes Provider Name and Address Organization Details Recorded Time Gastroesophage al reflux disease 262919379 Active 2022 Missy Honeydew null, PA - [facility] 14:34:47 Anxiety 63248928 Active 2022 Missy Jae null, PA - [facility] 14:35:10 Depressive disorder 24989280 Active 2022 Missy Jae null, PA - [facility] 14:35:14 Notes:Restricitve airway dis ease Problem Notes None recorded. Procedures Surgical History Date Name Laterality Status Provider Name and Address Organization Details Recorded Time Appendectomy completed Missy Jae PA - [facility] 10/15/2022 14:35:32 cholecystostomy completed Missy Honeydew P A - [facility] 10/15/2022 14:35:37 Removal of tonsils completed Missy Beeb e PA - [facility] 10/15/2022 14:35:50 Imaging Results None recorded. Procedure Notes None recorded. Medical Equipment None Reported. Allergies Allergen ID Allergen Name Allergen Category Reaction Reaction Severity Criticality Documentation Date Start Date Code Code System Note Provider Name and Address Organization Details Recorded Time 969574 Sudafed medicatio n insomnia Not available low 10/15/2022 48573 2 RxNorm Missy Honeydew null, PA - [facility] 14:31:58 768121 Lyrica medicatio n dizziness Not available high 10/15/2022 49451 1 RxNorm Missy Honeydew null, PA - [facility] 14:32:06 Medications [...] Updated DateTime 3 170.18 cm 32.9 kg/m2 74452.4 g 99 % 99 % 105 /min 20 /min 98.1 [degF] 155 mm[Hg] 83 mm[Hg] Missy Jae PA - [facility] 3 14:36:59 Social [...] or 50 mcg/0.25mL dose 1 completed Missy Honeydew null, PA - [facility] 10/15/2022 14:32:13 COVID-19, mRNA, LNP-S, PF, 100 mcg/0.5mL dose or 50 mcg/0.25mL dose 1 completed Missy Jae null, PA - [facility] 10/15/2022 14:32:13 COVID-19, mRNA, LNP-S, PF, 100 mcg/0.5mL dose or 50 mcg/0.25mL dose 1 completed Missy Jae null, PA - [facility] 10/15/2022 14:32:13 Influenza, split virus, trivalent, preservative 0 completed Missy Honeydew null, PA - [facility] 10/15/2022 14:32:13 Past Encounters Encounter ID Performer Location Encounter Start Date Encounter Closed Date Diagnosis/Indication Diagnosis SNOMED-CT Code Diagnosis ICD10 Code Diagnosis Note [id number] 21005_[address]y Dia [address] [place] [address] 08/13/2020 14:18:01 08/13/2020 15:37:22 [id number] 20995_Casey [address] [address] 08/13/2020 13:19:52 08/13/2020 15:34:27 [id number] Dipak Kathleen [place] [address] [address] 10/15/2022 14:08:24 10/15/2022 16:32:00 Acute urinary tract infection 164863532 N39.0 Health Concerns Section Related Observation LastModified by Organization Detai ls LastModified Time None Recorded Concern Status LastModified by Organization Details LastModified Time None Recorded Advance Directives Directive None Recorded Payers Encounter Date Sequence Insurance Name Policy Number Policy Monahan Covered Member ID Monahan Member ID Guarantor Name 08/13/2020 1 [facility] [id number] Shashank Candelaria [id number] Alida Candelaria 08/13/2020 1 [facility] [id number] Shashank Candelaria [id number] Alida Candelaria 10/15/2022 1 MEDICARE B-[place]: [facility] Alida Candelaria [id number] Alida Candelaria Notes Date Note Type Note [...] frequency Severity:moderate Duration:2 days Dipak Kathleen [place], [address], [place] - [facility] 10/20/2022 09:59:41 OBGyn Episode No OBEpisode recorded.
--- OUTSIDE RECORDS SUMMARY | 2024-09-28 17:42 | XMS_ITS | Continuity of Care Document ---
Author Organization [facility], [facility] 1st Floor Address [address] [place] [address] Assessment Encounter Date Assessment Date Assessment LastModified [...] intact. X-rays ordered, obtained and reviewed at [facility] 3 views the right wrist reveal appears [...] as surgery. Follow-up after MRI is obtained. [employer] speech recognition advertising copywriter software was used to create portions of [...] wrist r/o TFC tear 2023 024 aric [facility] ([facility]), [address], [place], [address], 08/24/2024 09:28:37 XR, wrist, 3 or more view - room 120 cast off 3V R wrist 2023 aric [facility], [address], [facility] [address], [place], [address], 08/24/2024 09:28:37 Medication Orders None recorded . Patient TargetsNo targets recorded. Patient Instructions Encounter Date Encounter Id Patient Instructions Last Modified By Organization Details Last Modified Time 08/04/2024 [id number] cast removal* - room 120 cast off [...] a4ajBk vP9nXo QUaueC m3YtLR FvZlgJ JJ8mAn HZtai3 [id number] AC0Kqa HWCUKW mKiQtr MwF INTERFACE [facility] [address], [place], [address], 08/04/2024 10:32:37 08/04/20 24 08/04/2024 XR, wrist , 3 or more view [email or web address] ?Encry pted=s hAaTro YD8dLq bEUv6g %2BXZw aYqtaq 0bqfl% 2Fg9IQ a4ajBk vP9nXo QUaueC m3YtLR FvZlgJ JJ8mAn HZtai3 [id number] AC0Kqa HWCUKW mKiQtr MwF INTERFACE [facility] [address], [place], [address], 08/04/2024 10:32:39 08/12/20 24 08/09/2024 MRI, upper extre mity joint (s), w/o contr ast [facility] Access ion Number : [id number] Patien t Name: Alida Candelaria Record Number : [id number] Date of : 1955 Date of Exam: 2023 Referr ing Physic jerad: [facility] ([facility]) [address], [address] [place] [address] Exam: MR Wrist (C-) CPT 71785 - Right Room Descri ption: [facility] 3T Wrist MRI right Clinic al [...] onical ly Signed By: Ale Isbell MD [id number] [facility] ([facility]) [address] [place], [address], 08/12/2024 15:48:41 Result Notes None recorded. Medical Equipment None Reported. Allergies Allergen ID Allergen Name Allergen Category Reaction Reaction Severity Criticality Documentation Date Start Date Code Code System Note Provider Name and Address Organization Details Recorded Time 629460 Sudafed medicatio n Not available Not available Not available 07/02/2024 12988 2 RxNorm ABIDA pappas [facility] 4 10:49:17 084026 Lyrica medicatio n Not available Not available Not available 07/02/2024 50678 1 RxNorm ABIDA pappas [place] - [facility] 4 10:49:22 Medications Name Sig Start Date [...] Updated DateTime 08/04/2024 170.18 cm 32.1 kg/m2 38929.44 g ABIDA SANTOS [place] - [facility] 08/04/2024 10:17:06 Social History None recorded. Functional Status None recorded. Mental Status None recorded. Family History Nothing Reported. Medical History No medical history recorded. Gynecological HistoryNo gynecological history recorded. Obstetrics History GPAL:G 0 P 0 0 0 0 Past Encounters Encounter ID Performer Location Encounter Start Date Encounter Closed Date Diagnosis/Indication Diagnosis SNOMED-CT Code Diagnosis ICD10 Code Diagnosis Note [id number] M[facility] 1st Floor [address] [place] [address] 08/04/2024 09:52:15 08/24/2024 09:28:37 Closed fracture of right wrist 1602114107 7772347 S62.101D Closed fra cture of triquetral bone of wrist 58256373 S62.114D Health Concerns Section Related Observation LastModified by Organization Detai ls LastModified Time None Recorded Concern Status LastModified by Organization Details LastModified Time None Recorded Payers Encounter Date Sequence Insurance Name Policy Number Policy Monahan Covered Member ID Monahan Member ID Guarantor Name 08/04/2024 2 [facility] OPTIONS (MEDICARE SUPPLEMENT) Alida Candelaria [id number] Alida Candelaria 08/04/2024 [employer] Alida Candelaria OBGyn Episode No OBEpisode recorded.
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
--- OUTSIDE RECORDS SUMMARY | 2024-09-28 17:42 | XMS_ITS | Continuity of Care Document ---
Author Organization [facility], [facility] 1st Floor Address [address] [place] [address] Assessment Encounter Date Assessment Date Assessment LastModified [...] weeks for recheck. Sooner if further difficulty. [facility] speech recognition supervisor lump room software was used to create portions of [...] None recorded . Referral occupati onal therapis t referral - OT- Right dorsal triquetr al fracture - ROM R wrist 2023 024 rmessenger Not available 09/24/2024 10:10:57 Procedures None recorded . Surgeries None recorded . Imaging None recorded . Medication Orders None recorded . Patient TargetsNo targets recorded. Patient InstructionsNo instructions [...] a4ajBk vP9nXo QUaueC m3YtLR FvZlgJ JJ8mAn HZtai3 [id number] AC0Kqa HWCUKW mKiQtr MwF INTERFACE [facility] Office [address] [facility] [address], [place], [address], 08/04/2024 10:32:37 08/04/20 24 08/04/2024 XR, wrist , 3 or more view [email or web address]:/ [email or web address] ?Encry pted=s hAaTro YD8dLq bEUv6g %2BXZw aYqtaq 0bqfl% 2Fg9IQ a4ajBk vP9nXo QUaueC m3YtLR FvZlgJ JJ8mAn HZtai3 6z1572 AC0Kqa HWCUKW mKiQtr MwF INTERFACE [facility] [address], [place], [address], 08/04/2024 10:32:39 08/12/20 24 08/09/2024 MRI, upper extre mity joint (s), w/o contr ast [facility] Access ion Number : [id number] Patien t Name: Alida Candelaria Record Number : [id number] Date of : 1955 Date of Exam: 2023 Referr ing Physic jerad: [facility] [address] [place] [address] Exam: MR Wrist (C-) CPT 04987 - Right Room Descri ption: [facility] Pion 3T Wrist MRI right [...] onical ly Signed By: Ale Isbell MD [email or web address] [facility] ([facility]) [address], [place], [address], 08/12/2024 15:48:41 Result Notes None recorded. Medical Equipment None Reported. Allergies Allergen ID Allergen Name Allergen Category Reaction Reaction Severity Criticality Documentation Date Start Date Code Code System Note Provider Name and Address Organization Details Recorded Time 844691 Sudafed medicatio n Not available Not available Not available 07/02/202471418 2 RxNorm ABIDA SANTOS mian [facility] 4 10:49:17 412393 Lyrica medicatio n Not available Not available Not available 07/02/2024 96918 1 RxNorm ABIDA JOSHIWilfred pappas [facility] 4 10:49:22 Medications Name Sig Start [...] Updated DateTime 09/03/2024 170.18 cm 31.5 kg/m2 75037.07 g ABIDA SANTOS [place] - [facility] 09/03/2024 14:48:11 Social History None recorded. Functional Status None recorded. Mental Status None recorded. Family History Nothing Reported. Medical History No medical history recorded. Gynecological HistoryNo gynecological history recorded. Obstetrics History GPAL:G 0 P 0 0 0 0 Past Encounters Encounter ID Performer Location Encounter Start Date Encounter Closed Date Diagnosis/Indication Diagnosis SNOMED-CT Code Diagnosis ICD10 Code Diagnosis Note [id number] Basil Patel PA-C [facility] [address] [place] [address] 08/04/2024 09:52:15 08/24/2024 09:28:37 Closed fracture of right wrist 4146320397 4144119 S62.101D Closed fra cture of triquetral bone of wrist 63440821 S62.114D [id number] Basil Patel PA-C [facility] [address] [place] [address] 09/03/2024 14:25:10 09/24/2024 10:10:57 Closed fracture of right wrist 4322782916 3956420 S62.101D Pain of right wrist 3169 444247 57316 M25.531 Health Concerns Section Related Observation LastModified by Organization Detai ls LastModified Time None Recorded Concern Status LastModified by Organization Details LastModified Time None Recorded Payers Encounter Date Sequence Insurance Name Policy Number Policy Monahan Covered Member ID Monahan Member ID Guarantor Name 09/03/2024 2 [facility] OPTIONS (MEDICARE SUPPLEMENT) Alida Candelaria [id number] Alida Candelaria 09/03/2024 1 [facility]ICARE B: [facility] Alida Candelaria [id number] Alida Candelaria OBGyn Episode No OBEpisode recorded.
[2024-09-28 19:39] VITALS: BP 124/60; PULSE 76; RESP 18; TEMP 36.6
--- NOTE | 2024-09-28 20:13 | PHA.MEDREC ---
Addendum entered by Charlene Wong RPh 09/28/24 20:21: reviewed by [facility]. Original Note: Pharmacy Consult ? Medication Reconciliation Pharmacy has completed the medication reconciliation. Spoke with patient and she confirmed her medications. She confirmed she still has Lorazepam 1mg tabs at home and states she takes them for sever panic attacks. She confirmed she is still taking Paroxetine and confirmed it was 40mg before I could ask and she confirmed she gets it filled at [facility] [address] [address] in [place], I went to call and confirm the last fill on that medication but patients pharmacy was closed for the night. She confirmed she has been in the hospital since last week and has not taken anything from home since last Saturday09/21/24.
[2024-09-28] MEDS: clonazePAM 0.5 MG TABLET PO (21:12)
[2024-09-28] MEDS: clomiPRAMINE HCl 25 MG CAPSULE 75 MG PO (21:12)
[2024-09-28] MEDS: PARoxetine HCL 40 MG TABLET PO (21:12)
[2024-09-28] MEDS: QUEtiapine Fumarate 400 MG TABLET PO (21:13)
[2024-09-29] MEDS: Lactated Ringers 1,000 ML 100 ML IVCONT (02:19)
[2024-09-29 03:09] VITALS: BP 129/58; PULSE 71; RESP 17; TEMP 36; O2SAT 92
[2024-09-29 05:57] LABS: MANUAL DIFF FLAG NO
[2024-09-29] MEDS: Omeprazole 20 MG CAPSULE.DR PO (06:09)
[2024-09-29 06:19] LABS: Basophils Percent Auto 0.8 % (0-2); Eosinophils Absolute Auto 0.6 X10*3/uL (0.0-0.4); Eosinophils Percent Auto 11.7 % (0-4); Hematocrit 40.9 % (37.0-47.0); Hemoglobin 13.1 g/dl (12.0-16.0); Imm Gran Abs Auto 0.01 X10*3/uL (0.00-0.03); Imm Gran Pct Auto 0.2 % (0.0-0.4); Lymphocytes Absolute Auto 1.7 X10*3/uL (1.2-4.9); Lymphocytes Percent Auto 32.7 % (20-40); Mean Corpuscular Hemoglobin 30.2 pg (27.0-33.0); Mean Corpuscular Volume 94.2 fL (80.0-98.0); Mean Platelet Volume 11.9 fL (9.4-12.3); Monocytes Absolute Auto 0.5 X10*3/uL (0.1-1.2); Neutrophils Absolute Auto 2.3 x10*3/uL (2.0-8.3); Neutrophils Percent Auto 44.6 % (45-73); Platelet Count 157 X10*3/uL (160-400); Red Blood Count 4.34 X10*6/uL (4.20-5.50); White Blood Count 5.1 X10*3/uL (4.8-10.8)
[2024-09-29 06:20] LABS: Alanine Aminotransferase 295 U/L (0-31); Albumin Level 3.3 g/dL (3.5-5.0); Alkaline Phosphatase 178 U/L (39-117); Anion Gap 9 (12-20); Aspartate Amino Transferase 161 U/L (5-31); Bilirubin Total 0.5 mg/dL (0.0-1.0); Blood Urea Nitrogen 10 mg/dL (9-16); Calcium 8.8 mg/dL (8.4-10.2); Carbon Dioxide 27 mmol/L (22-29); Chloride 111 mmol/L (96-108); Estimated Glomerular Filt Rate > 60; Glucose Random 91 mg/dL (60-115); Potassium 3.6 mmol/L (3.3-5.1); Sodium 143 mmol/L (135-145); Total Protein 5.7 g/dL (6.5-8.0)
[2024-09-29 07:22] VITALS: BP 133/63; PULSE 71; RESP 16; TEMP 36.5; O2SAT 94
[2024-09-29] MEDS: clonazePAM 0.5 MG TABLET PO (08:24)
--- NOTE | 2024-09-29 08:40 | CONS_ITS ---
DATE OF SERVICE: 09/29/2024 REFERRING PHYSICIAN: Tati Guzman NP REASON FOR CONSULTATION: Elevated liver function tests. HISTORY OF PRESENT ILLNESS: The patient is a pleasant 68-year-old woman who was admitted to the inpatient [facility]Sur unit from inpatient psychiatry for elevated liver function tests. She developed symptomatic diarrhea and had stool testing, which showed no evidence of C diff infection and viral/bacterial testing was also negative. As part of her evaluation, laboratory work was ordered, which showed elevation of her transaminases, which on admission were slightly elevated at 32 and 44 and subsequently milind to 337 and 444. These have improved since yesterday. Imaging of the abdomen and pelvis with a CT scanning was done and liver was described as normal with no evidence of masses or biliary ductal dilation. She has had cholecystectomy approximately 10 years ago. She denies prior history of liver problems except for 1 episode many years ago when she did have elevated liver function tests, which subsequently resolved. There was no evidence of hepatitis. Viral serologies are currently pending. She denies any history of drug use or significant alcohol intake and denies risk factors for hepatitis. PAST MEDICAL HISTORY: 1. Anxiety/depression. 2. Osteopenia. 3. 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 4. Gastroesophageal reflux disease. 5. Irritable bowel syndrome. CURRENT MEDICATIONS: Her current medication list is reviewed in the chart. ALLERGIES: MULTIPLE ALLERGIES ARE REVIEWED. FAMILY HISTORY: This is reviewed with the patient and is noncontributory. SOCIAL HISTORY: There is no current tobacco, alcohol, or substance abuse. REVIEW OF SYSTEMS: SKIN: No pruritus. HEENT: Negative. CARDIOPULMONARY: She denies shortness of breath or chest pain. GASTROINTESTINAL: As above. GENITOURINARY: Negative. NEUROPSYCHIATRIC: Negative. PHYSICAL EXAMINATION: GENERAL: Shows a pleasant female, lying comfortably in bed. VITAL SIGNS: Reviewed in electronic medical record and are stable. SKIN: Anicteric. HEENT: Shows no scleral icterus. NECK: Without lymphadenopathy or thyromegaly. LUNGS: Clear. HEART: Shows a regular rate and rhythm. S1, S2. No murmur. ABDOMEN: Soft without focal masses or tenderness. Bowel sounds are present. No organomegaly is noted. EXTREMITIES: Without edema. LABORATORY DATA: Reviewed and imaging studies are as well. IMPRESSION: Elevated liver function tests. 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 Current serologies are pending. Her liver function tests appear to be improving. I do not think this is medication related, although she has had some recent medication changes during her inpatient hospitalization for depression. I agree with monitoring her liver function tests and following her clinically. Her diet can be gradually advanced as she feels better. Thanks for asking me to see her. I will follow her in the hospital with you. MD CARLO Beasley/LILIANA / [id number]
--- NOTE | 2024-09-29 09:28 | PM.DS ---
DS: Providers Provider Date of Service: 09/29/24 Date of admission: 09/28/24 15:00 Date of discharge: 09/29/24 Primary care physician: Unknown Physician Consults: 09/28/24 15:04 Consult to Gastroenterology Routine Consulting Provider: Yves Pineda Reason for consultation: acute hepatitis DS: Diagnosis Discharge Diagnosis (1) Hepatitis: Status: Acute DS: Summary Hospital Course Hospital Course: 68 year old women transferred to [facility] floor from [facility] due to abdominal pain, nausea, vomiting and diarrhea. She had labs drawn which showed elevated liver enzymes that was new compared to one week ago. stool studies and cdiff neg, abd ct showing possible mesenteritis. No obvious sign of infection noted. She will be admitted for further management of acute hepatitis. 68-year-old woman transferred from [facility] for complaints of nausea, vomiting and transaminitis. Patient was noted to have AST of 337/ALT 444/alk phos 232 with normal bilirubin and LDH of 366. Abdominal CT showing possible mesenteritis. She was treated with IV fluids antiemetics. Hepatitis panel negative. She was seen evaluated by Gastroenterology who thought symptoms were likely related to atypical viral hepatitis. Liver function has appeared to improve significantly. Diet can be advanced and patient will be discharged home. She was agreeable to this. Mental health. Continue all medications as per Psychiatry Time Attestation Discharge Coordination Time (in mins): 35 Quality: Safe Use of Opioids Does Pt have an Active Cancer Diagnosis on the Problem List?: No Quality: Stroke Does the patient have a stroke diagnosis?: No Physical Exam Vital Signs: Vital Signs: Last Vital Signs Temp 97.7 F 09/29/24 07:22 Pulse 71 09/29/24 07:22 Resp 16 09/29/24 07:22 BP 133/63 09/29/24 07:22 Pulse Ox 94 09/29/24 07:22 O2 Del Method Room Air 09/29/24 03:09 O2 Flow Rate 94 09/28/24 19:39 Appearing in no acute distress head is normocephalic atraumatic eyes pupils are PERRLA sclera is anicteric mouth throat mucous membranes are intact and moist neck is supple no lymphadenopathy, no JVD noted lung sounds are clear to auscultation heart regular rate rhythm, clear S1, S2 positive bowel sounds, abdomen is soft, nontender neuro patient is alert x3, no focal deficits DS: Data Data Completed and Pending Labs on day of discharge: Laboratory Results - last 24 hr 09/29/24 05:27 WBC 5.1 RBC 4.34 Hgb 13.1 Hct 40.9 MCV 94.2 MCH 30.2 MCHC 32.0 RDW 14.0 Plt Count 157 L MPV 11.9 Immature Gran % (Auto) 0.2 Neut % (Auto) 44.6 L Lymph % (Auto) 32.7 [place] % (Auto) 10.0 Eos % (Auto) 11.7 H Baso % (Auto) 0.8 Lymph # (Auto) 1.7 [place] # (Auto) 0.5 Eos # (Auto) 0.6 H Baso # (Auto) 0.0 Abs Immat Gran (auto) 0.01 Absolute Neuts (auto) 2.3 Absolute Nucleated RBC 0.000 Nucleated RBC % (auto) 0.0 Sodium 143 Potassium 3.6 Chloride 111 H Carbon Dioxide 27 Anion Gap 9 L BUN 10 Creatinine 0.76 Estim Creat Clear Calc TNP Estimated GFR > 60 Random Glucose 91 Calcium 8.8 Total Bilirubin 0.5 AST 161 H ALT 295 H Alkaline Phosphatase 178 H Total Protein 5.7 L Albumin 3.3 L Discharge Plan Discharge Anticipated Discharge Date/Time: 09/29/24 09:26 Patient Disposition: Home, Self-Care Discharge Diagnosis: Transaminitis secondary to viral illness Discharge Medications: Continued quetiapine 200 mg tablet 400 mg PO BEDTIME 90 Days Qty: 180 1RF omeprazole 20 mg Tablet,Delayed Release (Dr/Ec) 20 mg PO DAILY@0630 clonazepam 0.5 mg Tablet 0.5 mg PO BID Qty: 1 0RF Rexulti 1 mg tablet 1 mg PO DAILY 30 Days Qty: 30 1RF paroxetine HCl 40 mg tablet 40 mg PO BEDTIME Qty: 90 1RF Rx Instructions: Patient stated she takes at Bedtime. clomipramine 25 mg capsule 75 mg PO BEDTIME Qty: 90 2RF lorazepam 1 mg tablet 1 mg PO DAILY PRN (Reason: Panic Attack(S)) Qty: 14 1RF Discharge Orders: Discharge Order (Routine); Ordered 09/29/24 Ordered By: Tati Guzman Diet: Advance to usual diet Activity on Discharge: As tolerated Stand Alone Forms: Patient Portal Discharge page Print Language: Zambian Care Plan Goals: Continue bland diet for a few days, drink plenty of fluids. Contact your primary care provider for vomiting and diarrhea that worsens Health Concerns: Transaminitis secondary to viral illness Plan of Treatment: Follow-up with primary care provider as needed Take all medications as prescribed Assessment: See discharge summary
--- NOTE | 2024-09-29 11:18 | MHC.CM.PN ---
Patient lives with spouse. She is independent with all functional mobility. She is discharged to home self care. Patient's spouse will provide transportation home.
== END 2024-09-29 11:21 | disposition home or self-care (01) | DRG 443 ==
PROVIDERS: Admitting Provider Nurse Practitioner Acute Care; Visit Provider Nurse Practitioner Acute Care
DX: B17.9 Acute viral hepatitis, unspecified (principal); Z79.899 Other long term (current) drug therapy
CPT/HCPCS: 36415; 80053; 85025; J7120

== ENCOUNTER → 2024-09-28 15:00 | Outpatient (BNV) | payer MEDICARE, SELFPAY | PROVIDERS: Admitting Provider Nurse Practitioner Acute Care; Visit Provider Nurse Practitioner Acute Care | DX: K75.9 Inflammatory liver disease, unspecified (principal) | CPT/HCPCS: 99222 ==

== ENCOUNTER 2024-10-02 08:18 | Outpatient (REF) | payer MEDICARE, SELFPAY ==
--- OUTSIDE RECORDS SUMMARY | 2024-10-02 08:28 | XMS_ITS | Data Portability ---
Author Organization [facility], [address] Address [address] [place] [address] Assessment No assessment recorded. Plan of Treatment Reminders Order Date Submit Date Provider Last Modified By Organization Details Last Modified Time Details Appointments None recorded. Lab urinalysis , dipstick 2022 023 [email or web address] [facility], [address] [place] [address], [place], [address], 16:29:08 culture, urine 2022 023 [facility], [address] [place] [address], [place], [address], 10:06:34 Referral None recorded. Procedures None recorded. Surgeries None recorded. Imaging None recorded. Medication Orders None recorded. Patient TargetsNo targets recorded. Patient Instructions Encounter Date Encounter Id Patient Instructions Last Modified By Organization Details Last Modified Time 10/15/2022 [id number] We recommend you get a repeat urinalysis [...] routine FINAL REPORT abnormal Not Available [facility] ([facility]) [address] [facility], [place], [address], 10/18/2022 12:06:27 10/15/19 23 10/18/2022 URINE CULTU [...] ng units per mL Not Available [facility] ([facility]) [address] [facility], [place], [address], 10/18/2022 12:06:27 10/15/19 23 10/18/2022 URINE CULTU [...] thopr im/Unger lfa S Not Available [facility] ([facility]) [address] [facility], [place], [address], 10/18/2022 12:06:27 10/15/1910/15/2022 urina lysis , dipst ick Unknown Analyte Normal = light yellow Not Available [facility] [address], [place], [address], 10/15/2022 14:30:39 10/15/1910/15/2022 urina lysis , dipst ick Unknown Analyte Yellow Not Available tee [address], [place], [address], 10/15/2022 14:30:39 10/15/1910/15/2022 urina lysis , dipst ick Unknown Analyte Normal = clear Not Available [facility] [address], [place], [address], 10/15/2022 14:30:39 10/15/19 23 10/15/2022 urina lysis , dipst ick Unknown Analyte Cloudy Not Available tee [address], [place], [address], 10/15/2022 14:30:39 10/15/1910/15/2022 urina lysis , dipst ick Unknown Analyte Normal = negati ve Not Available [facility] [address], [place], [address], 10/15/2022 14:30:39 10/15/1910/15/2022 urina lysis , dipst ick Unknown Analyte Negati ve Not Available [facility] [address], [place], [address], 10/15/2022 14:30:39 10/15/19 23 10/15/2022 urina lysis , dipst ick Unknown Analyte Normal = Negati ve Not Available [facility] [address], [place], [address], 10/15/2022 14:30:39 10/15/1910/15/2022 urina lysis , dipst ick Unknown Analyte Negati ve Not Available [facility] [address], [place], [address], 10/15/2022 14:30:39 10/15/1910/15/2022 urina lysis , dipst ick Unknown Analyte Normal = Negati ve Not Available [facility] [address], [place], [address], 10/15/2022 14:30:39 10/15/19 23 10/15/2022 urina lysis , dipst ick Unknown Analyte Negati ve Not Available [facility] [address], [place], [address], 10/15/2022 14:30:39 10/15/1910/15/2022 urina lysis , dipst ick Unknown Analyte Normal = 1.010, 1.015, 1.020 Not Available [facility] [address], [place], [address], 10/15/2022 14:30:39 10/15/1910/15/2022 urina lysis , dipst ick Unknown Analyte 1.020 Not Available [facility] [address], [place], [address], 10/15/2022 14:30:39 10/15/1910/15/2022 urina lysis , dipst ick Unknown Analyte Normal = Negati ve Not Available [facility] [address], [place], [address], 10/15/2022 14:30:39 10/15/1910/15/2022 urina lysis , dipst ick Unknown Analyte Large Not Available tee [address], [place], [address], 10/15/2022 14:30:39 10/15/1910/15/2022 urina lysis , dipst ick Unknown Analyte Normal = 6.5, 7.0, 7.5, 8.0 Not Available [facility] [address], [place], [address], 10/15/2022 14:30:39 10/15/1910/15/2022 urina lysis , dipst ick Unknown Analyte 7.0 Not Available [facility] [address], [place], [address], 10/15/2022 14:30:39 10/15/1910/15/2022 urina lysis , dipst ick Unknown Analyte Normal = Negati ve Not Available [facility] [address], [place], [address], 10/15/2022 14:30:39 10/15/19 23 10/15/2022 urina lysis , dipst ick Unknown Analyte 30 mg/dL Not Available [facility] [address], [place], [address], 10/15/2022 14:30:39 10/15/1910/15/2022 urina lysis , dipst ick Unknown Analyte Normal = 0.2, 1.0 Not Available [facility] [address], [place], [address], 10/15/2022 14:30:39 10/15/19 23 10/15/2022 urina lysis , dipst ick Unknown Analyte 0.2 E.U./d L Not Available [facility] [address], [place], [address], 10/15/2022 14:30:39 10/15/1910/15/2022 urina lysis , dipst ick Unknown Analyte Normal = Negati ve Not Available [facility] [address], [place], [address], 10/15/2022 14:30:39 10/15/1910/15/2022 urina lysis , dipst ick Unknown Analyte Negati ve Not Available [address] [address] [address], [place], [address], 10/15/2022 14:30:39 10/15/1910/15/2022 urina lysis , dipst ick Unknown Analyte Normal = Negati ve Not Available [facility] [address], [place], [address], 10/15/2022 14:30:39 10/15/1910/15/2022 urina lysis , dipst ick Unknown Analyte Modera te Not Available [address] [address] [address], [place], [address], 10/15/2022 14:30:39 Result Notes None recorded. Problems Name Problem SNOMED Code Status Onset Date Resolution Date Notes Provider Name and Address Organization Details Recorded Time Gastroesophage al reflux disease 064547248 Active 2022 Missy Jae null, PA - [facility] 14:34:47 Anxiety 04836546 Active 2022 Missy Hopedale null, PA - [facility] 14:35:10 Depressive disorder 93680244 Active 2022 Missy Jae null, PA - [facility] 14:35:14 Notes:Restricitve airway dis ease Problem Notes None recorded. Procedures Surgical History Date Name Laterality Status Provider Name and Address Organization Details Recorded Time Appendectomy completed Missy Jae PA - [facility] 10/15/2022 14:35:32 cholecystostomy completed Missy Hopedale P A - [facility] 10/15/2022 14:35:37 Removal of tonsils completed Missy Beeb e PA - [facility] 10/15/2022 14:35:50 Imaging Results None recorded. Procedure Notes None recorded. Medical Equipment None Reported. Allergies Allergen ID Allergen Name Allergen Category Reaction Reaction Severity Criticality Documentation Date Start Date Code Code System Note Provider Name and Address Organization Details Recorded Time 988062 Sudafed medicatio n insomnia Not available low 10/15/2022 21334 2 RxNorm Missy Hopedale null, PA - [facility] 14:31:58 007547 Lyrica medicatio n dizziness Not available high 10/15/2022 04283 1 RxNorm Missy Hopedale null, PA - [facility] 14:32:06 Medications [...] Updated DateTime 3 170.18 cm 32.9 kg/m2 53311.4 g 99 % 99 % 105 /min [...] or 50 mcg/0.25mL dose 1 completed Missy Hopedale null, PA - [facility] 10/15/2022 14:32:13 Influenza, split virus, trivalent, preservative 0 completed Missy Hopedale null, PA - [facility] 10/15/2022 14:32:13 Past Encounters Encounter ID Performer Location Encounter Start Date Encounter Closed Date Diagnosis/Indication Diagnosis SNOMED-CT Code Diagnosis ICD10 Code Diagnosis Note [id number] 21005_Casey Dia [address] [place] [address] 08/13/2020 14:18:01 08/13/2020 15:37:22 [id number] 20995_Casey [address] [address] 08/13/2020 13:19:52 08/13/2020 15:34:27 [id number] Dipak Kathleen NP [address] [address] 10/15/2022 14:08:24 10/15/2022 16:32:00 Acute urinary tract infection 361255226 N39.0 Health Concerns Section Related Observation LastModified by Organization Detai ls LastModified Time None Recorded Concern Status LastModified by Organization Details LastModified Time None Recorded Advance Directives Directive None Recorded Payers Encounter Date Sequence Insurance Name Policy Number Policy Monahan Covered Member ID Monahan Member ID Guarantor Name 08/13/2020 1 [facility] [id number] Shashank Candelaria [id number] Alida Candelaria 08/13/2020 1 [facility] [id number] Shashank Candelaria [id number] Alida Candelaria 10/15/2022 1 MEDICARE [place] [facility] Alida Candelaria [id number] Alida Candelaria Notes Date Note Type Note [...] frequency Severity:moderate Duration:2 days Dipak Kathleen NP [facility] [place], [address], PA - [facility] 10/20/2022 09:59:41 OBGyn Episode No OBEpisode recorded.
[2024-10-02 09:58] LABS: Alanine Aminotransferase 168 U/L (0-31); Alkaline Phosphatase 162 U/L (39-117); Aspartate Amino Transferase 52 U/L (5-31); Bilirubin Direct 0.1 mg/dL (0.0-0.5); Bilirubin Total 0.3 mg/dL (0.0-1.0); Total Protein 6.9 g/dL (6.5-8.0)
== END 2024-10-02 08:19 | disposition home or self-care (01) ==
LOC: HO.LAB 08:18
PROVIDERS: PCP Nurse Practitioner Family; Visit Provider Psychiatry & Neurology Psychiatry
DX: K75.9 Inflammatory liver disease, unspecified (principal)
CPT/HCPCS: 36415; 80076

== ENCOUNTER → 2024-10-16 09:45 | Outpatient (BNV) | payer MEDICARE, SELFPAY | PROVIDERS: Visit Provider Psychiatry & Neurology Psychiatry | DX: F33.2 Major depressive disorder, recurrent severe without psychotic features (principal); F41.1 Generalized anxiety disorder; F42.9 Obsessive-compulsive disorder, unspecified; F43.10 Post-traumatic stress disorder, unspecified | CPT/HCPCS: 90792 ==

== ENCOUNTER 2024-10-29 13:18 | Emergency (ER) | payer MEDICARE, SELFPAY ==
[2024-10-29 13:21] VITALS: BP 146/102; PULSE 90; RESP 18; TEMP 36.9; O2SAT 99; BMI 31.0
--- NOTE | 2024-10-29 13:25 | ED.GENADULT ---
HPI - General Adult General Chief complaint: Psychiatric Symptoms Stated complaint: psych Time Seen by Provider: 10/29/24 13:21 Source: patient Mode of arrival: ambulatory Limitations: no limitations History of Present Illness ED Provider: Adam Martinez HPI narrative: 68 yold female with pmh of Generalized anxiety disorder, depressoin, PTSD, OCD, ARISTEO, and hepatitis presents to the ED. Patient sent from partial on section 12 due to patient making SI statements of overdosing on ativan. Patient did not take any meds because she was unable to find them. Related Data Home Medications ?Medication ?Instructions ?Recorded ?Confirmed omeprazole 20 mg tablet,delayed 20 mg PO DAILY@0630 09/22/24 10/29/24 release aripiprazole 5 mg tablet (Abilify) 5 mg PO BEDTIME 10/15/24 10/29/24 Previous Rx's ?Medication ?Instructions ?Recorded paroxetine HCl 40 mg tablet 40 mg PO BEDTIME #90 tabs 05/19/24 quetiapine 200 mg tablet 400 mg (2 x 200 mg) PO BEDTIME 90 08/07/24 days #180 tabs lorazepam 1 mg tablet 1 mg PO DAILY PRN Panic Attack(S) 09/09/24 #14 tabs clonazepam 0.5 mg tablet 0.5 mg PO BID #1 tab 09/28/24 pramipexole 0.125 mg tablet 0.125 mg PO TID #90 tabs 10/23/24 clomipramine 25 mg capsule 75 mg (3 x 25 mg) PO BEDTIME #90 10/26/24 caps Allergies Allergy/AdvReac Type Severity Reaction Status Date / Time shellfish derived Allergy Severe DIFFICULTY Verified 10/29/24 13:23 [SHELLFISH DERIVED] BREATHING pseudoephedrine Allergy Intermediate AGITATION Verified 10/29/24 13:23 [From SUDAFED] pregabalin [From Lyrica] Allergy Dizziness Verified 10/29/24 13:23 Review of Systems Review of Systems: Suicidal ideation plan to overdose on Ativan Yes all other systems are reviewed and are negative PMFSH Past Medical History Medical History (Updated 10/30/24 @ 10:52 by Kian Miner MD) Fracture of wrist Major depression, recurrent, chronic Dyspnea Osteopenia History of hyperglycemia Fatty liver Hepatitis Small airways disease Chronic restrictive lung disease History of shingles History of COVID-19 Stress incontinence GERD (gastroesophageal reflux disease) IBS (irritable bowel syndrome) Surgical History History of adenoidectomy Hx of tonsillectomy History of appendectomy History of cholecystectomy Social History Social History Household Members: Spouse, Family and Other Household Members Other:: Adult son Housing: House Do you presently have visiting nurse or other home services: No Alcohol intake: current Alcohol intake frequency: holidays/special occasions only Comment: Extension TBD Patient Tobacco Use Status: Never used Tobacco Smoked in Last 30 Days: No e-Cigarette/Vaping Use: Never Used Second Hand Smoke Exposure: No Use of substances other than those prescribed or required for medical reasons: No Advance Directives: No Advance Directives Information Provided: Yes Do you have a plan to hurt others: No Plan service: No Sexual orientation: Straight/Heterosexual Physical Exam ED Vital Signs: Vital Signs - 24 hr 10/29/24 13:21 10/29/24 15:53 10/30/24 04:48 Temperature 98.5 F 97.3 F 97.9 F Pulse Rate 90 83 79 Respiratory Rate 18 18 18 Blood Pressure 146/102 H 127/82 147/69 H Pulse Oximetry 99 98 98 Oxygen Delivery Method Room Air Room Air Room Air 10/30/24 07:45 Temperature 97.9 F Pulse Rate 81 Respiratory Rate 14 Blood Pressure 145/73 H Pulse Oximetry 98 Oxygen Delivery Method Room Air BMI result Body Mass Index 31.0 Const General: cooperative, healthy appearing, comfortable, no acute distress, well developed, alert, awake and Physically active Orientation/consciousness: patient oriented x3 HENMT Head: Yes normal to inspection, Yes No palpable skull fracture present, Yes normocephalic and Yes atraumatic Eyes General: appearance normal, both eyes and all related structures Neck Neck: Yes normal visual inspection, Yes full ROM, Yes no lymphadenopathy, Yes no meningeal signs, Yes trachea midline, Yes supple, No anterior neck swelling and No tender Chest Chest palpation & inspection: normal inspection of the chest and normal palpation of entire chest wall Resp Effort & Inspection: normal respiratory effort and able to speak in complete sentences Auscultation: clear to auscultation bilaterally Cardio Jugular venous distension: no JVD Heart sounds: S1 normal heart sound present and S2 normal heart sound present GI Inspection: Yes normal to inspection Palpation (GI): Soft to palpation, not firm, nontender, no guarding and not rigid General: Yes no CVA tenderness Back/Spine/Pelvis Back: no CVA tenderness and No back tenderness Skin General skin exam: no rashes or lesions noted, elasticity normal and turgor normal Neuro General: patient oriented x3, gait normal, tone normal, moves all extremities, Normal light touch and pain sensation, no meningeal signs, no focal motor deficits, CN's II-XI intact bilaterally and normal sensation to monofilament Extrem General: Yes normal to inspection, Yes full ROM and Yes capillary refill normal Psych Appearance: grossly normal, well kempt and not disheveled Medications Administered Generic Name Dose Route Start Last Admin Trade Name Freq PRN Reason Stop Dose Admin Aripiprazole 5 mg 10/29/24 21:00 10/29/24 20:14 Aripiprazole 5 Mg Tablet PO 5 mg BEDTIME HEATHER Administration Clomipramine HCl 75 mg 10/29/24 21:00 10/29/24 20:28 Clomipramine Hcl 25 Mg Capsule PO 75 mg BEDTIME HEATHER Administration Clonazepam 0.5 mg 10/29/24 21:00 10/30/24 09:17 Clonazepam 0.5 Mg Tablet PO 0.5 mg BID HEATHER Administration Lorazepam 1 mg 10/29/24 14:26 10/29/24 14:40 Lorazepam 1 Mg Tablet PO 1 mg DAILY PRN Administration Panic Attack(S) Omeprazole 20 mg 10/30/24 06:30 10/30/24 06:07 Omeprazole 20 Mg Capsule. PO 20 mg DAILY@0630 HEATHER Administration Paroxetine HCl 40 mg 10/29/24 21:00 10/29/24 20:14 Paroxetine Hcl 40 Mg Tablet PO 40 mg BEDTIME HEATHER Administration Pramipexole Dihydrochloride 0.125 mg 10/29/24 15:00 10/30/24 09:17 Pramipexole Di-Hcl 0.125 Mg Tablet PO 0.125 mg TID HEATHER Administration Quetiapine Fumarate 400 mg 10/29/24 21:00 10/29/24 20:15 Quetiapine Fumarate 400 Mg Tablet PO 400 mg BEDTIME HEATHER Administration Medical Decision Making Medical Decision Making MDM Narrative: 68 year female suicidal plan to take overdose Ativan which she could not find. Patient has not checked his 12. Labs care team consult placed. 8:43pm: Patient's labs are baseline. Patient to be re-evaluated by care team in the morning. 10/30/2024 at 10:34 hours,Dr. Kian Miner's note: Laboratory evaluation revealed The patient has been in the emergency department for proximally 21 hours. There were no reported incidents on this patient by the overnight staff. She presented to the emergency department for evaluation of suicidal ideation with a plan. Patient was re-evaluated this morning by care team and I obtained the following information from the care team clinician. Patient has passive suicidal ideation with no specific plan to harm herself. She has a remote history of suicidal ideation with plans but he was never acted on them in his never had a suicide attempt. Care team provider reached out to the patient's psychiatrist, Dr. Williamson and he felt that the patient could be discharged at this point. Therefore the patient was discharged home. Differential Diagnosis Differential Diagnoses: The differential diagnosis associated with the presentation includes (SI, depression, anxiety) Admission/Observation Consideration of admission/observation: Escalation of care including admission/observation considered Lab Data MDM Lab Attestation statement: I reviewed the patient's lab results. 10/29/24 14:03 10/29/24 14:03 Labs: Lab Results 10/29/24 Range/Units 14:03 WBC 8.1 (4.8-10.8) X10*3/uL RBC 4.41 (4.20-5.50) X10*6/uL Hgb 13.4 (12.0-16.0) g/dl Hct 40.5 (37.0-47.0) % MCV 91.8 (80.0-98.0) fL MCH 30.4 (27.0-33.0) pg MCHC 33.1 (31.0-35.0) g/dl RDW 13.6 (11.0-16.0) % Plt Count 198 D (160-400) X10*3/uL MPV 11.7 (9.4-12.3) fL Immature Gran % (Auto) 0.4 (0.0-0.4) % Neut % (Auto) 59.6 (45-73) % Lymph % (Auto) 22.6 (20-40) % Jack % (Auto) 6.3 (2-11) % Eos % (Auto) 10.5 H (0-4) % Baso % (Auto) 0.6 (0-2) % Lymph # (Auto) 1.8 (1.2-4.9) X10*3/uL Jack # (Auto) 0.5 (0.1-1.2) X10*3/uL Eos # (Auto) 0.9 H (0.0-0.4) X10*3/uL Baso # (Auto) 0.1 (0.0-0.2) X10*3/uL Abs Immat Gran (auto) 0.03 (0.00-0.03) X10*3/uL Absolute Neuts (auto) 4.8 (2.0-8.3) x10*3/uL Absolute Nucleated RBC 0.000 (0.0-0.012) X10*3/uL Nucleated RBC % (auto) 0.0 (0.0-0.2) /100WBC Sodium 140 (135-145) mmol/L Potassium 3.6 (3.3-5.1) mmol/L Chloride 108 (96-108) mmol/L Carbon Dioxide 26 (22-29) mmol/L Anion Gap 10 L (12-20) BUN 18 H (9-16) mg/dL Creatinine 0.80 (0.5-1.4) mg/dL Estim Creat Clear Calc 78.5 Estimated GFR > 60 Random Glucose 103 (60-115) mg/dL Calcium 9.6 D (8.4-10.2) mg/dL Total Bilirubin 0.4 (0.0-1.0) mg/dL Direct Bilirubin 0.1 (0.0-0.5) mg/dL AST 26 (5-31) U/L ALT 27 (0-31) U/L Alkaline Phosphatase 100 (39-117) U/L Total Protein 7.1 (6.5-8.0) g/dL Albumin 4.0 (3.5-5.0) g/dL Urine Color Yellow Urine Appearance Clear Urine pH 6.5 (5.0-9.0) Ur Specific [place] 1.015 (1.005-1.025) Urine Protein Negative (Neg-Trace) mg/dL Urine Glucose (UA) Negative (Negative) mg/dL Urine Ketones Negative (Negative) mg/dL Urine Blood Negative (Negative) Urine Nitrite Negative (Negative) Ur Leukocyte Esterase Negative (Negative) Salicylates < 5.0 L (15-30) mg/dL Urine Opiates Screen Not Detected (Not Detect) Ur Buprenorphine Scrn Not Detected (Not Detect) ng/mL Ur Oxycodone Screen Not Detected (Not Detect) ng/mL Urine Methadone Screen Not Detected (Not Detect) ng/mL Urine Fentanyl Screen Not Detected (Not Detect) Acetaminophen < 3 (<30) mcg/mL Ur Barbiturates Screen Not Detected (Not Detect) Ur Phencyclidine Scrn Not Detected (Not Detect) Ur Amphetamines Screen Not Detected (Not Detect) U Benzodiazepines Scrn Not Detected (Not Detect) Urine Cocaine Screen Not Detected (Not Detect) U Marijuana (THC) Screen Not Detected (Not Detect) Ethyl Alcohol < 10 mg/dL COVID-19 (THANH) Negative (Negative) COVID-19 Clin Com See Note Independent Historian Clinical information obtained from an independent historian. History obtained from or confirmed by: Other (Patient) Discharge Plan Discharge Clinical Impression: Depression, Passive suicidal ideations Patient Disposition: Home, Self-Care Additional Instructions: Your blood work was unremarkable. Your COVID-19 test was negative. You were seen by the care team and they did speak to your psychiatrist, Dr. Williamson as well. At this time, care team feels that it is okay to send you home however if you start to feel like you are going to hurt yourself or hurt anyone else, please return to the emergency department so that we can re-evaluate you and help you. Continue taking medications as prescribed by your providers. You were seen in our Emergency Department today for treatment of a behavioral health issue. It is important after your visit that you follow up with either your behavioral health provider or a primary care doctor within 7 days.? If you have trouble finding a therapist you can reach out to [place] [phone] The National Suicide and Crisis Lifeline can be reached 7 days a week 24 hours a day.? Call 988 to speak with someone.? Return for any worsening symptoms or concerns such as thoughts of self harm or harm to others. Please call 911 if you feel your mental health is worsening.? Prescriptions: No Action quetiapine 200 mg tablet 400 mg PO BEDTIME 90 Days Qty: 180 1RF clomipramine 25 mg capsule 75 mg PO BEDTIME Qty: 90 2RF aripiprazole [Abilify] 5 mg Tablet 5 mg PO BEDTIME pramipexole 0.125 mg tablet 0.125 mg PO TID Qty: 90 1RF Rx Instructions: start 2 x day increase to 3 x day as tolerated omeprazole 20 mg Tablet,Delayed Release (Dr/Ec) 20 mg PO DAILY@0630 clonazepam 0.5 mg Tablet 0.5 mg PO BID Qty: 1 0RF paroxetine HCl 40 mg tablet 40 mg PO BEDTIME Qty: 90 1RF Rx Instructions: Patient stated she takes at Bedtime. lorazepam 1 mg tablet 1 mg PO DAILY PRN (Reason: Panic Attack(S)) Qty: 14 1RF Interventions: Lares-Suicide Risk Severity Scale Last Done: 10/29/24 14:12 Print Language: Citizen [place]
--- OUTSIDE RECORDS SUMMARY | 2024-10-29 13:34 | XMS_ITS | Data Portability ---
Author Organization [facility], [facility] Address [address] [place] [address] Assessment No assessment recorded. Plan of Treatment Reminders Order Date Submit Date Provider Last Modified By Organization Details Last Modified Time Details Appointments None recorded. Lab urinalysis , dipstick 2022 023 [email or web address] _[facility], [address] [place] [address], [place], [address], 16:29:08 culture, urine 2022 023 [facility], [address] [place] [address], [place], [address], 10:06:34 Referral None recorded. Procedures None recorded. Surgeries None recorded. Imaging None recorded. Medication Orders None recorded. Patient TargetsNo targets recorded. Patient Instructions Encounter Date Encounter Id Patient Instructions Last Modified By Organization Details Last Modified Time 10/15/2022 [id number] We recommend you get a repeat urinalysis [...] routine FINAL REPORT abnormal Not Available [facility] ([facility]) [address] [facility], [place], [address], 10/18/2022 12:06:27 10/15/19 23 10/18/2022 URINE CULTU [...] ng units per mL Not Available [facility] ([facility]) [address] [facility], [place], [address], 10/18/2022 12:06:27 10/15/19 23 10/18/2022 URINE CULTU [...] thopr im/Unger lfa S Not Available [facility] ([facility]) [address], [place], [address], 10/18/2022 12:06:27 10/15/1910/15/2022 urina lysis , dipst ick Unknown Analyte Normal = light yellow Not Available [facility] [address], [place], [address], 10/15/2022 14:30:39 10/15/1910/15/2022 urina lysis , dipst ick Unknown Analyte Yellow Not Available tee [address], [place], [address], 10/15/2022 14:30:39 10/15/1910/15/2022 urina lysis , dipst ick Unknown Analyte Normal = clear Not Available [facility] [address], [place], [address], 10/15/2022 14:30:39 10/15/19 23 10/15/2022 urina lysis , dipst ick Unknown Analyte Cloudy Not Available tee [address], [place], [address], 10/15/2022 14:30:39 10/15/1910/15/2022 urina lysis , dipst ick Unknown Analyte Normal = negati ve Not Available [facility] [address], [place], [address], 10/15/2022 14:30:39 10/15/1910/15/2022 urina lysis , dipst ick Unknown Analyte Negati ve Not Available [facility] [address], [place], [address], 10/15/2022 14:30:39 10/15/19 23 10/15/2022 urina lysis , dipst ick Unknown Analyte Normal = Negati ve Not Available [facility] [address], [place], [address], 10/15/2022 14:30:39 10/15/1910/15/2022 urina lysis , dipst ick Unknown Analyte Negati ve Not Available [facility] [address], [place], [address], 10/15/2022 14:30:39 10/15/1910/15/2022 urina lysis , dipst ick Unknown Analyte Normal = Negati ve Not Available [facility] [address], [place], [address], 10/15/2022 14:30:39 10/15/19 23 10/15/2022 urina lysis , dipst ick Unknown Analyte Negati ve Not Available [facility] [address], [place], [address], 10/15/2022 14:30:39 10/15/1910/15/2022 urina lysis , dipst ick Unknown Analyte Normal = 1.010, 1.015, 1.020 Not Available [facility] [address], [place], [address], 10/15/2022 14:30:39 10/15/1910/15/2022 urina lysis , dipst ick Unknown Analyte 1.020 Not Available [facility] [address], [place], [address], 10/15/2022 14:30:39 10/15/1910/15/2022 urina lysis , dipst ick Unknown Analyte Normal = Negati ve Not Available [facility] [address], [place], [address], 10/15/2022 14:30:39 10/15/1910/15/2022 urina lysis , dipst ick Unknown Analyte Large Not Available tee [address], [place], [address], 10/15/2022 14:30:39 10/15/1910/15/2022 urina lysis , dipst ick Unknown Analyte Normal = 6.5, 7.0, 7.5, 8.0 Not Available [facility] [address], [place], [address], 10/15/2022 14:30:39 10/15/1910/15/2022 urina lysis , dipst ick Unknown Analyte 7.0 Not Available [facility] [address], [place], [address], 10/15/2022 14:30:39 10/15/1910/15/2022 urina lysis , dipst ick Unknown Analyte Normal = Negati ve Not Available [facility] [address], [place], [address], 10/15/2022 14:30:39 10/15/19 23 10/15/2022 urina lysis , dipst ick Unknown Analyte 30 mg/dL Not Available [facility] [address], [place], [address], 10/15/2022 14:30:39 10/15/1910/15/2022 urina lysis , dipst ick Unknown Analyte Normal = 0.2, 1.0 Not Available [facility] [address], [place], [address], 10/15/2022 14:30:39 10/15/19 23 10/15/2022 urina lysis , dipst ick Unknown Analyte 0.2 E.U./d L Not Available [facility] [address], [place], [address], 10/15/2022 14:30:39 10/15/1910/15/2022 urina lysis , dipst ick Unknown Analyte Normal = Negati ve Not Available [facility] [address], [place], [address], 10/15/2022 14:30:39 10/15/1910/15/2022 urina lysis , dipst ick Unknown Analyte Negati ve Not Available [address] [address] [address], [place], [address], 10/15/2022 14:30:39 10/15/1910/15/2022 urina lysis , dipst ick Unknown Analyte Normal = Negati ve Not Available [facility] [address], [place], [address], 10/15/2022 14:30:39 10/15/1910/15/2022 urina lysis , dipst ick Unknown Analyte Modera te Not Available [address], [place], [address], 10/15/2022 14:30:39 Result Notes None recorded. Problems Name Problem SNOMED Code Status Onset Date Resolution Date Notes Provider Name and Address Organization Details Recorded Time Gastroesophage al reflux disease 094928817 Active 2022 Missy Jae null, PA - [facility] 14:34:47 Anxiety 22598222 Active 2022 Missy [place] null, PA - [facility] 14:35:10 Depressive disorder 62189884 Active 2022 Missy Jae null, PA - [facility] 14:35:14 Notes:Restricitve airway dis ease Problem Notes None recorded. Procedures Surgical History Date Name Laterality Status Provider Name and Address Organization Details Recorded Time Appendectomy completed Missy Jae PA - [facility] 10/15/2022 14:35:32 cholecystostomy completed Missy [place] P A - [facility] 10/15/2022 14:35:37 Removal of tonsils completed Missy Beeb e PA - [facility] 10/15/2022 14:35:50 Imaging Results None recorded. Procedure Notes None recorded. Medical Equipment None Reported. Allergies Allergen ID Allergen Name Allergen Category Reaction Reaction Severity Criticality Documentation Date Start Date Code Code System Note Provider Name and Address Organization Details Recorded Time 625397 Sudafed medicatio n insomnia Not available low 10/15/2022 73412 2 RxNorm Missy [place] null, PA - [facility] 14:31:58 319254 Lyrica medicatio n dizziness Not available high 10/15/2022 45474 1 RxNorm Missy [place] null, PA - [facility] 14:32:06 Medications [...] Updated DateTime 3 170.18 cm 32.9 kg/m2 71180.4 g 99 % 99 % 105 /min [...] or 50 mcg/0.25mL dose 1 completed Missy [place] null, PA - [facility] 10/15/2022 14:32:13 Influenza, split virus, trivalent, preservative 0 completed Missy [place] null, PA - [facility] 10/15/2022 14:32:13 Past Encounters Encounter ID Performer Location Encounter Start Date Encounter Closed Date Diagnosis/Indication Diagnosis SNOMED-CT Code Diagnosis ICD10 Code Diagnosis Note [id number] 21005_Casey Dia [address] [place] [address] 08/13/2020 14:18:01 08/13/2020 15:37:22 [id number] 20995_Casey [address] [address] 08/13/2020 13:19:52 08/13/2020 15:34:27 [id number] Dipak Kathleen NP [address] [address] 10/15/2022 14:08:24 10/15/2022 16:32:00 Acute urinary tract infection 542414538 N39.0 Health Concerns Section Related Observation LastModified by Organization Detai ls LastModified Time None Recorded Concern Status LastModified by Organization Details LastModified Time None Recorded Advance Directives Directive None Recorded Payers Encounter Date Sequence Insurance Name Policy Number Policy Monahan Covered Member ID Monahan Member ID Guarantor Name 08/13/2020 1 [facility] [id number] Shashank Candelaria [id number] Alida Candelaria 08/13/2020 1 [facility] [id number] Shashank Candelaria [id number] Alida Candelaria 10/15/2022 1 MEDICARE B-MS: [facility] Alida Candelaria [id number] Alida Candelaria Notes Date Note Type Note [...] frequency Severity:moderate Duration:2 days Dipak Kathleen [place] [facility], [address], [place] - [facility] 10/20/2022 09:59:41 OBGyn Episode No OBEpisode recorded.
--- OUTSIDE RECORDS SUMMARY | 2024-10-29 13:34 | XMS_ITS | Clinical Summary ---
Author Organization [facility] Address [address] [place] [address] Care Team Providers Care Furnace Mechanic Helper Name Role Phone Unavailable Primary Care Provider Unavailabl e Social History Tobacco Use Types Packs/Day Years Used Date Smoking Tobacco: Never Assessed Sex and Gender Information Value Date Recorded Sex Assigned at Not on file Gender Identity Not on file Sexual Orientation Not on file Plan of Treatment Health Maintenance Due Date Last Done Comments Hepatitis C Virus Screening 1955 DTaP/Tdap/Td Vaccines (1 - Tdap) 11/29/1975 Mammogram 1996 Colonoscopy 2001 Pneumococcal Vaccines 50+ (1 of 1 - PCV) 2006 Zoster (Shingles) Vaccine (1 of 2) 2006 DXA Bone Density (Females,Ag es 65 and older) 2021 Influenza Vaccine 04/23/2024 COVID-19 Vaccine ( - 2023-2 5 season) 2024 RSV Vaccine 60 years and old er and Patients (1 - 1-dose 75+ series) 11/29/2031 Hepatitis B Vaccines Aged Out No long er eligible based on patient's age to complete this topic
--- OUTSIDE RECORDS SUMMARY | 2024-10-29 13:34 | XMS_ITS | Encounter Summary ---
Author Organization [facility] Address [address] [place] [address] Care Team Providers Care Lead Mobile Developer Name Role Phone July Estrella ICING COATER Primary Care Provider + [phone] Encounter Details Date Type Department Care Team ([facility] st Contact Info) Description 09/30/2024 Telephone Gastroenterology - [address] [facility] [address] [place] [phone] Rito Curtis MD [address] [facility] [address] [place] [address] Social History Tobacco Use Types Packs/Day Years Used Date Smoking Tobacco: Never Assessed Sex and Gender Information Value Date Recorded Sex Assigned at Not on file Gender Identity Not on file Sexual Orientation Not on file Job Start Date Occupation Industry Not on file Not on file Not on file documented as of this encounter Progress Notes * Brianna Alfred MA - 10/01/2024 2:51 PM EST Pt aware. She will be having labs done tomorrow. She will have those results sent here. * Mary Ann Regan - 09/30/2024 12:21 PM EST PT RECENTLY HOSPITALIZED FOR DEPRESSION & ANXIETY, WHILE THERE SHE WAS DX WITH [facility] LFTS, SHE ISGETTING RECORDS FOR OFFICE BUT ASKING IF SHE NEEDS TO BE SEEN documented in this encounter Plan of Treatment Not on file documented as of this encounter Visit Diagnoses Not on filedocumented in this encounter Care Teams Lead Mobile Developer Relationship Specialty Start Date End Date July Estrella NP [address] [facility] [place] [address] PCP - General Nurse Practitioner 09/30/24 documented as of this encounter
--- OUTSIDE RECORDS SUMMARY | 2024-10-29 13:34 | XMS_ITS | Clinical Summary ---
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 Name Role Phone July Estrella AIRLINE PILOT/FIRST OFFICER Primary Care Provider Encounters Date Type Department Care Team Description 09/30/2024 Telephone Gastroenterology - 299 [facility] 299 [facility] [address] [place] [phone] Rito Curtis MD from Last 3 Months Social History Tobacco Use Types Packs/Day Years Used Date Smoking Tobacco: Never Assessed Sex and Gender Information Value Date Recorded Sex Assigned at Not on file Gender Identity Not on file Sexual Orientation Not on file Job Start Date Occupation Industry Not on file Not on file Not on file Plan of Treatment Health Maintenance Due Date Last Done Comments Breast Cancer Screening 1955 Pneumococcal Vaccine: 65+ Ye ars (1 of 2 - PCV) 1962 DTaP,Tdap,and Td Vaccines (1 - Tdap) 11/29/1975 Zoster Vaccines (1 of 2) 2006 Colorectal Cancer Screening: Colonoscopy 08/26/2022 Depression Screening 08/26/2022 Falls Risk Assessment 08/26/2022 Hepatitis C Screening 08/26/2022 Osteoporosis Screening (Bone Density Screening) 08/26/2022 Social Influencers of Health Screening 08/26/2022 COVID-19 Vaccine (1 - 2023-2 5 season) 2024 Influenza Vaccine (#1) 2024 RSV Immunization Patients 60 + Years Old (1 - 1-dose 75+ series) 11/29/2031 HIB Vaccines Aged Out No longer eligi ble based on patient's age to complete this topic HPV Vaccines Aged Out No longer eligi ble based on patient's age to complete this topic Hepatitis A Vaccines Aged Out No long er eligible based on patient's age to complete this topic Hepatitis B Vaccines Aged Out No long er eligible based on patient's age to complete this topic IPV Vaccines Aged Out No longer eligi ble based on patient's age to complete this topic MMR Vaccines Aged Out No longer eligi ble based on patient's age to complete this topic Meningococcal ACWY Vaccine Aged Out N o longer eligible based on patient's age to complete this topic RSV Immunization Patients Un anand 20 months Aged Out No longer eligible b ased on patient's age to complete this topic Varicella Vaccines Aged Out No longer eligible based on patient's age to complete this topic Procedures Procedure Name Priority Date/Time Associated Diagnosis Comments EXTERNAL CLINICAL LAB 10/02/2024 from Last 3 Months Results * External clinical lab (10/02/2024) Provider [facility] BLOOD ORDERA BLES from Last 3 Months Care Teams Automatic Paint Sprayer Operator Relationship Specialty Start Date End Date July Estrella NP [address] [facility] [place] [address] PCP - General Nurse Practitioner 09/30/24
[2024-10-29 14:09] LABS: MANUAL DIFF FLAG NO
[2024-10-29 14:10] LABS: Basophils Absolute Auto 0.1 X10*3/uL (0.0-0.2); Basophils Percent Auto 0.6 % (0-2); Eosinophils Absolute Auto 0.9 X10*3/uL (0.0-0.4); Eosinophils Percent Auto 10.5 % (0-4); Hematocrit 40.5 % (37.0-47.0); Hemoglobin 13.4 g/dl (12.0-16.0); Imm Gran Abs Auto 0.03 X10*3/uL (0.00-0.03); Imm Gran Pct Auto 0.4 % (0.0-0.4); Lymphocytes Absolute Auto 1.8 X10*3/uL (1.2-4.9); Lymphocytes Percent Auto 22.6 % (20-40); Mean Corpuscular HGB Conc 33.1 g/dl (31.0-35.0); Mean Corpuscular Hemoglobin 30.4 pg (27.0-33.0); Mean Corpuscular Volume 91.8 fL (80.0-98.0); Mean Platelet Volume 11.7 fL (9.4-12.3); Monocytes Absolute Auto 0.5 X10*3/uL (0.1-1.2); Monocytes Percent Auto 6.3 % (2-11); Neutrophils Absolute Auto 4.8 x10*3/uL (2.0-8.3); Neutrophils Percent Auto 59.6 % (45-73); Platelet Count 198 X10*3/uL (160-400); Red Blood Count 4.41 X10*6/uL (4.20-5.50); Red Cell Distribution Width 13.6 % (11.0-16.0); White Blood Count 8.1 X10*3/uL (4.8-10.8)
[2024-10-29 14:11] LABS: Appearance Urine Clear; Color Urine Yellow; Glucose Urine UA Negative (Negative); Leukocyte Esterase Urine Negative (Negative); Nitrite Urine Negative (Negative); PH 6.5 (5.0-9.0); Specific Gravity - Urine 1.015 (1.005-1.025); Urine Blood Negative (Negative); Urine Ketones Negative (Negative); Urine Protein Negative (Neg-Trace)
--- NOTE | 2024-10-29 14:18 | PC.NURSE ---
a&ox4. vss and up to date aside from being hypertensive - pt denies any chest pain/palpitations/sob. pt presents to the pod from partial extremely tearful, anxious and tremulous. pt placed on a section 12 prior to arrival. pt presents c/o SI w/ a plan to either suffocate herself or take an entire bottle of ativan. pt states she is prescribed ativan but was unable to follow through w/ plan d/t not being able to find her prescription bottle. pt reports previous plans in the past but denies any previous attempts. denies HI/AV/VH/substance use/etoh. labs/urine obtained/sent to lab. med rec completed. diet order placed. pt pending care team consult. respirations even/unlabored. plan of care ongoing.
[2024-10-29 14:22] LABS: COVID-19 Test Negative (Negative); IDNOW Serial# 6674DD1D
[2024-10-29 14:38] LABS: Acetaminophen LAB < 3 mcg/mL (<30); Alanine Aminotransferase 27 U/L (0-31); Alkaline Phosphatase 100 U/L (39-117); Anion Gap 10 (12-20); Aspartate Amino Transferase 26 U/L (5-31); Bilirubin Direct 0.1 mg/dL (0.0-0.5); Bilirubin Total 0.4 mg/dL (0.0-1.0); Blood Urea Nitrogen 18 mg/dL (9-16); Calcium 9.6 mg/dL (8.4-10.2); Carbon Dioxide 26 mmol/L (22-29); Chloride 108 mmol/L (96-108); Creatinine Clr Calc Pharmacy 78.5; Estimated Glomerular Filt Rate > 60; Ethanol < 10 mg/dL; Glucose Random 103 mg/dL (60-115); Potassium 3.6 mmol/L (3.3-5.1); Salicylate < 5.0 mg/dL (15-30); Sodium 140 mmol/L (135-145); Total Protein 7.1 g/dL (6.5-8.0)
[2024-10-29 14:39] LABS: Amphetamine Screen Urine Not Detected (Not Detect); Barbiturates, Urine Not Detected (Not Detect); Benzodiazepines Screen Urine Not Detected (Not Detect); Buprenorphine Scr Not Detected (Not Detect); Cannabinoid Screen Urine Not Detected (Not Detect); Cocaine Screen Urine Not Detected (Not Detect); Methadone Screen, Urine Not Detected (Not Detect); Opiate Screen Urine Not Detected (Not Detect); Oxycodone Screen Urine Not Detected (Not Detect); Phencyclidine Screen Urine Not Detected (Not Detect)
[2024-10-29] MEDS: LORazepam 1 MG TABLET PO (14:40)
--- NOTE | 2024-10-29 14:41 | PC.NURSE ---
pt presents to the nurses station extremely tearful and anxious requesting to go home. pt notified/aware she was placed on a section 12 and is unable to leave at this time until being properly assessed by care team. prn medication administered per provider order. effectiveness pending.
[2024-10-29] MEDS: Pramipexole Di-HCL 0.125 MG TABLET PO ×2 (14:48→20:28)
[2024-10-29 14:49] LABS: Fentanyl, urine Not Detected (Not Detect)
--- NOTE | 2024-10-29 15:18 | PC.NURSE ---
pt speaking w/ care team at this time.
[2024-10-29 15:53] VITALS: BP 127/82; PULSE 83; RESP 18; TEMP 36.3; O2SAT 98
--- NOTE | 2024-10-29 18:16 | MHC.CARE ---
Final disposition not reached today, patient will be reassessed by the CARE Team in the morning. ED provider, Dr. Sinan rutledge
[2024-10-29] MEDS: PARoxetine HCL 40 MG TABLET PO (20:14)
[2024-10-29] MEDS: ARIPiprazole 5 MG TABLET PO (20:14)
[2024-10-29] MEDS: clonazePAM 0.5 MG TABLET PO (20:15)
[2024-10-29] MEDS: QUEtiapine Fumarate 400 MG TABLET PO (20:15)
[2024-10-29] MEDS: clomiPRAMINE HCl 25 MG CAPSULE 75 MG PO (20:28)
[2024-10-30 04:48] VITALS: BP 147/69; PULSE 79; RESP 18; TEMP 36.6; O2SAT 98
[2024-10-30] MEDS: Omeprazole 20 MG CAPSULE.DR PO (06:07)
[2024-10-30 07:45] VITALS: BP 145/73; PULSE 81; RESP 14; TEMP 36.6; O2SAT 98
[2024-10-30] MEDS: Pramipexole Di-HCL 0.125 MG TABLET PO (09:17)
[2024-10-30] MEDS: clonazePAM 0.5 MG TABLET PO (09:17)
[2024-10-30 11:05] VITALS: BP 145/73; PULSE 81; RESP 14; TEMP 36.6; O2SAT 98
--- NOTE | 2024-10-30 11:20 | MHC.CARE ---
CARE Team has faxed over and activated a 3 day referral and 7 day alert with [facility]
--- NOTE | 2024-10-30 14:08 | PHA.MEDREC ---
Addendum entered by Elizabeth Silva RPh 10/30/24 14:10: Reviewed by [facility] Original Note: Pharmacy Consult ? Medication Reconciliation Pharmacy has reviewed the medication reconciliation done by nursing. med rec matches claims.
== END 2024-10-30 11:10 | disposition home or self-care (01) ==
PROVIDERS: Physician Assistant; Emergency Provider Emergency Medicine Emergency Medical Services
DX: F33.1 Major depressive disorder, recurrent, moderate (principal); R45.851 Suicidal ideations; Z51.81 Encounter for therapeutic drug level monitoring; Z11.52 Encounter for screening for COVID-19; Z79.899 Other long term (current) drug therapy
CPT/HCPCS: 36415; 80053; 80143; 80179; 80307; 81003; 82248; 85025; 87635; 99285; S9485

== ENCOUNTER 2024-11-06 09:45 | Outpatient (RCR) | payer MEDICARE, SELFPAY ==
--- NOTE | 2024-10-15 12:50 | PC.ADMIT ---
Patient is a 68 year old female who was referred to [facility] by [facility] where she was admitted from 09/21/24-09/28/24. According to records patient was struggling with increased depression with SI at that time and had a plan to buy a hose and tape to suffocate herself by carbon monoxide poisoning. Patient also had self harm thoughts. According to records patient was struggling with family stresses and conflict along with medication changes and her was not being supportive at that time. Currently patient is alert and oriented x4. She is calm and cooperative. Thoughts are clear and logical. She presented with anxious mood and congruent affect. She denied SI, no HI. She received a copy of her safety plan if needed. She wants to work on more positive self talk and trying not to change others. Medications reconciled with patient and inpatient hospitalization discharge records. Patient reports she is taking medications as prescribed. She also reports she had to restart Abilify per doctor Williamson's instructions as patient's insurance will not cover Rexulti and patient is unable to afford the prescription.
[2024-10-15 12:58] VITALS: BP 124/80; PULSE 72; TEMP 36.6
[2024-10-15 12:59] VITALS: BMI 31.6
--- NOTE | 2024-10-15 15:31 | HO.PHP ---
Client's case has been opened and reviewed in team.
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
--- NOTE | 2024-10-23 18:27 | HO.PHPPROGNO ---
Subjective Subjective Date of Service: 10/23/24 Reason For Visit: MDD,PTSD Healthcare Proxy: No Guardianship: No Interim History: Patient seen psychiatric follow-up. Patient has been somewhat anxious intermittently dysphoric. Continues to find in general PHP helpful dealing with issues related to not being able to get alternative medications that we had tried to start including Rexulti or Vraylar Medication Compliance: Yes Mental Status Exam Mental Status Exam Narrative: Alert, oriented, in no acute distress. Calm, cooperative, engaged. Mild tremulouness. Eye contact maintained. Mood less anxious, stable, modest range of affect, mood congruent. Speech normal. Thought process linear, coherent. Thought content related to stressors, future-oriented, denies any thoughts of SIB/SI. No aggressive ideation or HI. No paranoia or delusional content elicited. No evidence of psychosis. Insight fair but adequate. Judgment good. Diagnostics Vital Signs (24Hr): BMI result Body Mass Index 31.6 Assessment & Plan Assessment & Plan (1) Depression, major, severe recurrence: Status: Resolved Code(s): F33.2 - Major depressive disorder, recurrent severe without psychotic features (2) OCD (obsessive compulsive disorder): Status: Acute Code(s): F42.9 - Obsessive-compulsive disorder, unspecified (3) PTSD (post-traumatic stress disorder): Status: Acute Code(s): F43.10 - Post-traumatic stress disorder, unspecified Plan cont php consider tms l methyl folate ect as back up if needed other alt includes spravato Patient educated on: diagnosis, medication risk/benefits and therapeutic strategies Informed Consent: understands Reason for contiued partial hosp. stay Substantial Risk for: harm to self and rapid decompensation Certification I certify that partial hospital treatment is medically necessary due to the symptoms and problems resulting from the patient's mental illness and the failure to treat the patient at the partial hospital level of care would likely result in the patient requiring inpatient psychiatric care which could not be prevented at a less intensive level of care. Total time managing care of this patient today ____ minutes. Discharge Plan Discharge Attending provider: Clotilde Brewer Medications: New pramipexole 0.125 mg tablet 0.125 mg PO TID Qty: 90 1RF Rx Instructions: start 2 x day increase to 3 x day as tolerated brexpiprazole 1 mg tablet 1 mg PO DAILY Qty: 30 0RF Continued quetiapine 200 mg tablet 400 mg PO BEDTIME 90 Days Qty: 180 1RF clomipramine 25 mg capsule 75 mg PO BEDTIME Qty: 90 2RF aripiprazole [Abilify] 5 mg Tablet 5 mg PO BEDTIME omeprazole 20 mg Tablet,Delayed Release (Dr/Ec) 20 mg PO DAILY@0630 paroxetine HCl 40 mg tablet 40 mg PO BEDTIME Qty: 90 1RF Rx Instructions: Patient stated she takes at Bedtime. lorazepam 1 mg tablet 1 mg PO DAILY PRN (Reason: Panic Attack(S)) Qty: 14 1RF Changed clonazepam 0.5 mg Tablet 0.5 mg PO DAILY Qty: 30 0RF Patient Education: Depression (DC), Anxiety (ED) Print Language: Mongolian
--- NOTE | 2024-10-29 13:32 | PC.NURSE ---
Patient disclosed to [facility] psychiatrist Dr. Brewer that she is feeling depressed with severe anxiety and was making suicidal statements that she does not want to be here. Patient has chronic SI and she is feeling thoughts are more active today. She requested to go to crisis as she is not feeling safe and was looking for a bottle of Ativan to overdose on while in the program today. Dr. Brewer and patient were unable to find the bottle in her purse. Unsure if she bought the bottle to the program. Patient put on a section 12 A. Nurse to Nurse done with Yvonne VELAZQUEZ in [facility] Pod. Helm from the Care Team notified.
--- NOTE | 2024-10-29 13:40 | HO.PHP ---
[facility] staff member followed up with Alida after group three to explore what was occurring. Alida stated she is feeling an increase in anxiety and is having a challenging time with gathering her thoughts. Alida is uncertain to if this is due to a recent medication change. Alida stated she is having thoughts around self-harming by cutting, in which she hasn't done that in years. PHP staff explored if Alida is feeling unsafe with those thoughts. Alida expressed that she doesn't think she would do anything because that would make her more anxious but was also uncertain. PHP staff member informed Alida that Dr. Brewer would be meeting with her soon as well to further explore. [facility] staff member asked Alida if it would be helpful for her to call her to develop a safety plan. Alida reported that her would be frustrated with her and she doesn't think that would help because he doesn't understand mental health. PHP staff member was receptive. Alida informed the clinician that she is feeling better after crying. [facility] staff member encouraged Alida to eat lunch with her peers while waiting for Dr. Brewer but if she is experiencing an increase in concerns prior to that to access the clinician. Alida was receptive. Alida met with Dr. Brewer in which she informed her that she wanted to be evaluated by crisis. PHP staff member walked Alida down to the Pod for an evaluation.
--- NOTE | 2024-10-29 20:35 | HO.PHPPROGNO ---
Subjective Subjective Date of Service: 10/29/24 Reason For Visit: MDD,PTSD Interim History: Patient seen per patient request. Presents shaky, anxious, and moments of tearfulness. She shares she was thinking about going to crisis, I don't know I just don't feel safe . She reports experiencing increased anxiety since Saturday, no clear precipitant. Anxiety is mostly focused on her daughter who will be leaving partner soon and moving out of their place in [place] and moving closer to [facility]. She indicates this is a good thing. I don't like him, I don't like how he treats her . Patient catastrophizing, worries that ex will follow daughter out here and try moving back in with daughter despite evidence to the contrary, with daughter consistently expressing her intention to end relationship and is currently in the process of moving out and securing a new place. She shares that she started on pramipexole BID yesterday, complaining of nausea which continued into the seasonal recruiter, nausea is starting to subside since AM dose. Aside from the nausea, patient was initially doing okay this morning I talked a lot in first group and shared what's going on with my daughter and then just lost it . I had self harming thoughts but then I was thinking I haven't cut in 20 years . She reports then I was just having strong suicidal thoughts, like feeling I don't want to be here feeling like that anymore . She takes prn Ativan for acute anxiety but says she was not able to find her bottle on her, emptying contents of her purse. Shares that she was also having the thought of overdosing on the whole bottle if she did find it. Presently she is conflicted about whether she wants to harm herself, but adds that when she goes home I don't think I can be safe at home , advocates for crisis eval sometimes the hsopital is the only place I feel safe . Medication Compliance: Yes Side effects from medications: Yes Attending Groups: Yes Review of Systems Acute medical concerns: No Mental Status Exam Mental Status Exam Narrative: Alert, oriented, in no acute distress. Calm, cooperative, engaged. Mild tremulouness. Eye contact maintained. Mood anxious, depressed, affect variable, momentarily tearful otherwise mildly constricted, mood congruent. Speech normal. Thought process linear, coherent. Thought content related to stressors, feelings of guilt, expresses SI with intention, and considering plan to overdose. No aggressive ideation or HI. No paranoia or delusional content elicited. No evidence of psychosis. Insight and judgment fair but adequate. Diagnostics Vital Signs (24Hr): BMI result Body Mass Index 31.6 Assessment & Plan Assessment & Plan (1) Depression, major, severe recurrence: Status: Resolved Code(s): F33.2 - Major depressive disorder, recurrent severe without psychotic features (2) JOSE (generalized anxiety disorder): Status: Acute Code(s): F41.1 - Generalized anxiety disorder (3) OCD (obsessive compulsive disorder): Status: Acute Code(s): F42.9 - Obsessive-compulsive disorder, unspecified (4) PTSD (post-traumatic stress disorder): Status: Acute Code(s): F43.10 - Post-traumatic stress disorder, unspecified Plan patient advocating for for crisis eval Sent to ED on section 12 if discharged guido, will plan to continue treatment plan I suggest she could start on pramipexole on a once daily basis (bedtime) for now until better tolerated (since she feels this caused less nausea than the AM dose) Patient educated on: diagnosis and medication risk/benefits Informed Consent: understands Reason for contiued partial hosp. stay Substantial Risk for: harm to self, inability to function, rapid decompensation and med/psych decompensation Certification I certify that partial hospital treatment is medically necessary due to the symptoms and problems resulting from the patient's mental illness and the failure to treat the patient at the partial hospital level of care would likely result in the patient requiring inpatient psychiatric care which could not be prevented at a less intensive level of care. Total time managing care of this patient today __20__ minutes. Discharge Plan Discharge Attending provider: Clotilde Brewer Medications: New pramipexole 0.125 mg tablet 0.125 mg PO TID Qty: 90 1RF Rx Instructions: start 2 x day increase to 3 x day as tolerated No Action quetiapine 200 mg tablet 400 mg PO BEDTIME 90 Days Qty: 180 1RF clomipramine 25 mg capsule 75 mg PO BEDTIME Qty: 90 2RF aripiprazole [Abilify] 5 mg Tablet 5 mg PO BEDTIME omeprazole 20 mg Tablet,Delayed Release (Dr/Ec) 20 mg PO DAILY@0630 clonazepam 0.5 mg Tablet 0.5 mg PO BID Qty: 1 0RF paroxetine HCl 40 mg tablet 40 mg PO BEDTIME Qty: 90 1RF Rx Instructions: Patient stated she takes at Bedtime. lorazepam 1 mg tablet 1 mg PO DAILY PRN (Reason: Panic Attack(S)) Qty: 14 1RF Print Language: Citizen Of [place]
--- NOTE | 2024-11-06 23:55 | HO.PHPPROGNO ---
Subjective Subjective Date of Service: 11/06/24 Reason For Visit: MDD,PTSD Interim History: Patient seen for follow-up, anticipating discharge at the end of program today.? I'm doing good. Today is my last day but I do feel ready She states her time in the program has been helpful. On reflection she feels that bad day last week (when she went to the ED for acute thoughts SIB/SI, I think I would have been okay if I had the lorazepam, I just didn't' have it on me that day. I am now making sure I keep some with me where ever I go . She has started on pramipexole, so far she feels she has been tolerating the medication well. Further titrated dose from BID to TID since just yesterday. Has not yet started L-methylfolate supplementation, plans to start this weekend. She has continued on Abilify 5 mg. She misses taking the Rexulti, was not on it long enough to tell if there was a difference (vs Abilify) but was hopeful the Rexulti would not cause/ exacerbate her jaw tremor as Abilify seems to. Aside from this issue, she is tolerating her medications and is just been feeling better . Her daughter will be coming on Saturday a long with a friend and moving into the [employer]. Reports no acute issues or concerns. Medication compliant, medications well-tolerated. Denies any adverse effects.? Mood is better .?More future-oriented, feeling more positive. Denies any hopelessness or SI. Last SI was last (in ED). Denies thoughts of harming self or others at this time. No HI, AH or VH. Sleep, appetite, energy stable. Medication Compliance: Yes Side effects from medications: No Attending Groups: Yes Review of Systems Acute medical concerns: No Mental Status Exam Mental Status Exam Narrative: Alert, oriented, in no acute distress. Calm, cooperative, engaged. Mild tremulouness. Eye contact maintained. Mood less anxious, stable, modest range of affect, mood congruent. Speech normal. Thought process linear, coherent. Thought content related to stressors, future-oriented, denies any thoughts of SIB/SI. No aggressive ideation or HI. No paranoia or delusional content elicited. No evidence of psychosis. Insight fair but adequate. Judgment good. Diagnostics Vital Signs (24Hr): BMI result Body Mass Index 31.6 Assessment & Plan Assessment & Plan (1) Depression, major, severe recurrence: Status: Resolved Code(s): F33.2 - Major depressive disorder, recurrent severe without psychotic features (2) JOSE (generalized anxiety disorder): Status: Acute Code(s): F41.1 - Generalized anxiety disorder (3) OCD (obsessive compulsive disorder): Status: Acute Code(s): F42.9 - Obsessive-compulsive disorder, unspecified (4) PTSD (post-traumatic stress disorder): Status: Acute Code(s): F43.10 - Post-traumatic stress disorder, unspecified Plan [facility]charge from [facility] Continue regular medications - ABilify 5 mg, Anafranil 75 mg, Paxil 40 mg, Mirapex 0.125 mg TID, Seroquel 400 mg, clonazepam (prn lorazepam for panic) and other regular medications Spoke with pharmacy to see if insurance is requesting [place] approval for Rexulti, no script on file, will send over script now Patient aware not to start on this medication in interim, will see if can be approved by insurance (if so will plan to follow up on this with OP provider) No other refills needed at this time Will defer further medication management to outpatient provider *Safety plan reviewed *Discharge diagnoses, treatment course, discharge plan have been reviewed with patient (including medication regime, medication management, potential side effects) as well as treatment rationale were also revisited *Discharge paperwork signed and given to patient, copy sent for scanning to chart Patient educated on: diagnosis and medication risk/benefits Informed Consent: understands Reason for contiued partial hosp. stay Substantial Risk for: stable for discharge Certification I certify that partial hospital treatment is medically necessary due to the symptoms and problems resulting from the patient's mental illness and the failure to treat the patient at the partial hospital level of care would likely result in the patient requiring inpatient psychiatric care which could not be prevented at a less intensive level of care. Total time managing care of this patient today _30___ minutes. Discharge Plan Discharge Attending provider: Clotilde Brewer Medications: New pramipexole 0.125 mg tablet 0.125 mg PO TID Qty: 90 1RF Rx Instructions: start 2 x day increase to 3 x day as tolerated brexpiprazole 1 mg tablet 1 mg PO DAILY Qty: 30 0RF Continued quetiapine 200 mg tablet 400 mg PO BEDTIME 90 Days Qty: 180 1RF clomipramine 25 mg capsule 75 mg PO BEDTIME Qty: 90 2RF aripiprazole [Abilify] 5 mg Tablet 5 mg PO BEDTIME omeprazole 20 mg Tablet,Delayed Release (Dr/Ec) 20 mg PO DAILY@0630 paroxetine HCl 40 mg tablet 40 mg PO BEDTIME Qty: 90 1RF Rx Instructions: Patient stated she takes at Bedtime. lorazepam 1 mg tablet 1 mg PO DAILY PRN (Reason: Panic Attack(S)) Qty: 14 1RF Changed clonazepam 0.5 mg Tablet 0.5 mg PO DAILY Qty: 30 0RF Patient Education: Depression (DC), Anxiety (ED) Print Language: Nepali
== END 2024-11-06 23:59 | disposition home or self-care (01) ==
LOC: HO.PHPA 09:45
PROVIDERS: Visit Provider Psychiatry & Neurology Psychiatry
DX: F33.2 Major depressive disorder, recurrent severe without psychotic features (principal); F41.1 Generalized anxiety disorder; F42.9 Obsessive-compulsive disorder, unspecified; F43.10 Post-traumatic stress disorder, unspecified; Z79.899 Other long term (current) drug therapy
CPT/HCPCS: 90791; 90853

== ENCOUNTER → 2024-11-06 09:45 | Outpatient (BNV) | payer MEDICARE, SELFPAY | PROVIDERS: Visit Provider Psychiatry & Neurology Psychiatry | DX: F33.2 Major depressive disorder, recurrent severe without psychotic features (principal); F42.9 Obsessive-compulsive disorder, unspecified; F43.10 Post-traumatic stress disorder, unspecified | CPT/HCPCS: 99214 ==

== ENCOUNTER 2024-11-11 15:03 | Outpatient (AMB) | payer MEDICARE, SELFPAY ==
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
--- OUTSIDE RECORDS SUMMARY | 2024-11-11 15:10 | XMS_ITS | Clinical Summary ---
Author Organization [facility] Address [address] [place] [address] Care Team Providers Care Supervisor Edging Name Role Phone Unavailable Primary Care Provider [...]
--- OUTSIDE RECORDS SUMMARY | 2024-11-11 15:11 | XMS_ITS | Clinical Summary ---
Author Organization [facility] Address [address] [place] [address] Phone Care Team Providers Care River Captain Name Role Phone July Estrella VISUAL BASIC DEVELOPER Primary Care Provider Encounters Date Type Department Care Team Description 09/30/2024 Telephone Gastroenterology - [address] [facility] [address] [place] [address] [phone] Rito Curtis MD from Last 3 Months Social History Tobacco Use Types Packs/Day Years Used Date Smoking Tobacco: Never Assessed Comments Unknown Sex and Gender Information Value Date Recorded Sex Assigned at Not on file Legal Sex Female 12:49 AM EST Gender Identity Not on file Sexual Orientation Not on file Plan of Treatment Health Maintenance Due Date Last Done Comments Breast Cancer Screening 1955 DTaP,Tdap,and Td Vaccines (1 - Tdap) 11/29/1975 Pneumococcal Vaccine: 50+ Ye ars (1 of 2 - PCV) 11/29/1975 Zoster Vaccines (1 of 2) 2006 Colorectal Cancer Screening: Colonoscopy 08/26/2022 Depression Screening 08/26/2022 Falls Risk Assessment 08/26/2022 Hepatitis C Screening 08/26/2022 Osteoporosis Screening (Bone Density Screening) 08/26/2022 Social Influencers of Health Screening 08/26/2022 COVID-19 Vaccine ( - 2023-2 5 season) 2024 Influenza Vaccine [...] patient's age to complete this topic Meningococcal B Vacine Aged Out No lo nger eligible based on patient's age to complete [...] lab (10/02/2024) Provider [facility] BLOOD ORDERABLES Fin al Result from Last 3 Months Insurance MEDICARE [facility] Care Teams River Captain Relationship Specialty Start Date End Date July Estrella NP [address] [facility] [place] [address] PCP - General Nurse Practitioner 09/30/24
--- OUTSIDE RECORDS SUMMARY | 2024-11-11 15:11 | XMS_ITS | Data Portability ---
Author Organization [facility] [address] Address [address] [place] [address] Assessment No assessment recorded. Plan of Treatment Reminders Order Date Submit Date Provider Last Modified By Organization Details Last Modified Time Details Appointments None recorded. Lab urinalysis , dipstick 2022 023 [email or web address] [facility], [address] [place] [address], [place], [address], 16:29:08 culture, urine 2022 023 [facility], [address] [place] [address], [place], [address], 10:06:34 Referral None recorded. Procedures None recorded. Surgeries None recorded. Imaging None recorded. Medication Orders None recorded. Patient TargetsNo targets recorded. Patient Instructions Encounter Date Encounter Id Patient Instructions Last Modified By Organization Details Last Modified Time 10/15/2022 [id number] We recommend you get a repeat urinalysis [...] routine FINAL REPORT abnormal Not Available [facility] ([facility]) [address] [facility], [place], [address], 10/18/2022 12:06:27 10/15/19 23 10/18/2022 URINE CULTU [...] ng units per mL Not Available [facility] ([facility]) [address] [facility], [place], [address], 10/18/2022 12:06:27 10/15/19 23 10/18/2022 URINE CULTU [...] thopr im/Unger lfa S Not Available [facility] ([facility]) [address] [facility], [place], [address], 10/18/2022 12:06:27 10/15/1910/15/2022 urina lysis , dipst ick Unknown Analyte Normal = light yellow Not Available [facility] [address], [place], [address], 10/15/2022 14:30:39 10/15/1910/15/2022 urina lysis , dipst ick Unknown Analyte Yellow Not Available tee [address], [place], [address], 10/15/2022 14:30:39 10/15/1910/15/2022 urina lysis , dipst ick Unknown Analyte Normal = clear Not Available [facility] [address], [place], [address], 10/15/2022 14:30:39 10/15/19 23 10/15/2022 urina lysis , dipst ick Unknown Analyte Cloudy Not Available tee [address], [place], [address], 10/15/2022 14:30:39 10/15/1910/15/2022 urina lysis , dipst ick Unknown Analyte Normal = negati ve Not Available [facility] [address], [place], [address], 10/15/2022 14:30:39 10/15/1910/15/2022 urina lysis , dipst ick Unknown Analyte Negati ve Not Available [facility] [address], [place], [address], 10/15/2022 14:30:39 10/15/19 23 10/15/2022 urina lysis , dipst ick Unknown Analyte Normal = Negati ve Not Available [facility] [address], [place], [address], 10/15/2022 14:30:39 10/15/1910/15/2022 urina lysis , dipst ick Unknown Analyte Negati ve Not Available [facility] [address], [place], [address], 10/15/2022 14:30:39 10/15/1910/15/2022 urina lysis , dipst ick Unknown Analyte Normal = Negati ve Not Available [facility] [address], [place], [address], 10/15/2022 14:30:39 10/15/19 23 10/15/2022 urina lysis , dipst ick Unknown Analyte Negati ve Not Available [facility] [address], [place], [address], 10/15/2022 14:30:39 10/15/1910/15/2022 urina lysis , dipst ick Unknown Analyte Normal = 1.010, 1.015, 1.020 Not Available [facility] [address], [place], [address], 10/15/2022 14:30:39 10/15/1910/15/2022 urina lysis , dipst ick Unknown Analyte 1.020 Not Available [facility] [address], [place], [address], 10/15/2022 14:30:39 10/15/1910/15/2022 urina lysis , dipst ick Unknown Analyte Normal = Negati ve Not Available [facility] [address], [place], [address], 10/15/2022 14:30:39 10/15/1910/15/2022 urina lysis , dipst ick Unknown Analyte Large Not Available tee [address], [place], [address], 10/15/2022 14:30:39 10/15/1910/15/2022 urina lysis , dipst ick Unknown Analyte Normal = 6.5, 7.0, 7.5, 8.0 Not Available [facility] [address], [place], [address], 10/15/2022 14:30:39 10/15/1910/15/2022 urina lysis , dipst ick Unknown Analyte 7.0 Not Available [facility] [address], [place], [address], 10/15/2022 14:30:39 10/15/1910/15/2022 urina lysis , dipst ick Unknown Analyte Normal = Negati ve Not Available [facility] [address], [place], [address], 10/15/2022 14:30:39 10/15/19 23 10/15/2022 urina lysis , dipst ick Unknown Analyte 30 mg/dL Not Available [facility] [address], [place], [address], 10/15/2022 14:30:39 10/15/1910/15/2022 urina lysis , dipst ick Unknown Analyte Normal = 0.2, 1.0 Not Available [facility] [address], [place], [address], 10/15/2022 14:30:39 10/15/19 23 10/15/2022 urina lysis , dipst ick Unknown Analyte 0.2 E.U./d L Not Available [facility] [address], [place], [address], 10/15/2022 14:30:39 10/15/1910/15/2022 urina lysis , dipst ick Unknown Analyte Normal = Negati ve Not Available [facility] [address], [place], [address], 10/15/2022 14:30:39 10/15/1910/15/2022 urina lysis , dipst ick Unknown Analyte Negati ve Not Available [facility] [address], [place], [address], 10/15/2022 14:30:39 10/15/1910/15/2022 urina lysis , dipst ick Unknown Analyte Normal = Negati ve Not Available [facility] [address], [place], [address], 10/15/2022 14:30:39 10/15/1910/15/2022 urina lysis , dipst ick Unknown Analyte Modera te Not Available [address] [address], [place], [address], 10/15/2022 14:30:39 Result Notes None recorded. Problems Name Problem SNOMED Code Status Onset Date Resolution Date Notes Provider Name and Address Organization Details Recorded Time Gastroesophage al reflux disease 523231356 Active 2022 Missy Echo null, PA - [facility] 14:34:47 Anxiety 82988770 Active 2022 Missy Echo null, PA - [facility] 14:35:10 Depressive disorder 28821037 Active 2022 Missy Jae null, PA - [...] Name and Address Organization Details Recorded Time 925244 Sudafed medicatio n insomnia Not available low 10/15/2022 91835 2 RxNorm Missy Echo null, PA - [facility] 14:31:58 473644 Lyrica medicatio n dizziness Not available high 10/15/2022 18602 1 RxNorm Missy Echo null, PA - [facility] 14:32:06 Medications [...] Updated DateTime 3 170.18 cm 32.9 kg/m2 82454.4 g 99 % 99 % 105 /min 20 /min 98.1 [degF] 155 mm[Hg] 83 mm[Hg] Missy Echo PA - [facility] 3 14:36:59 Social History Question Answer Notes LastModified by Organizat ion Details LastModified Time Tobacco Smoking Status Never Smoker Missy Jea null, PA - [facility] 10/15/2022 14:35:22 [...] or 50 mcg/0.25mL dose 1 completed Missy Echo null, PA - [facility] 10/15/2022 14:32:13 COVID-19, mRNA, LNP-S, PF, 100 mcg/0.5mL dose or 50 mcg/0.25mL dose 1 completed Missy Echo null, PA - [facility] 10/15/2022 14:32:13 COVID-19, mRNA, LNP-S, PF, 100 mcg/0.5mL dose or 50 mcg/0.25mL dose 1 completed Missy Jae null, PA - [facility] 10/15/2022 14:32:13 Influenza, split virus, trivalent, preservative 0 completed Missy Echo null, PA - [facility] 10/15/2022 14:32:13 Past Encounters Encounter ID Performer Location Encounter Start Date Encounter Closed Date Diagnosis/Indication Diagnosis SNOMED-CT Code Diagnosis ICD10 Code Diagnosis Note [id number] 21005_Casey Dia [address] [place] [address] 08/13/2020 14:18:01 08/13/2020 15:37:22 [id number] 20995_[address]y [address] [address] 08/13/2020 13:19:52 08/13/2020 15:34:27 [id number] Dipak Kathleen [place] [address] [address] 10/15/2022 14:08:24 10/15/2022 16:32:00 Acute urinary tract infection 744066241 N39.0 Health Concerns Section Related Observation LastModified by Organization Detai ls LastModified Time None Recorded Concern Status LastModified by Organization Details LastModified Time None Recorded Advance Directives Directive None Recorded Payers Encounter Date Sequence Insurance Name Policy Number Policy Monahan Covered Member ID Monahan Member ID Guarantor Name 08/13/2020 1 [facility] [id number] Shashank Candelaria [id number] Alida Candelaria 08/13/2020 1 [facility] ([facility]) [id number] Shashank Candelaria [id number] Alida Candelaria 10/15/2022 1 MEDICARE B-PA: [facility] Alida Candelaria [id number] Alida Candelaria Notes Date Note Type Note [...] Duration:2 days Dipak Kathleen NP [facility] [place], [address], [place] - [facility] 10/20/2022 09:59:41 OBGyn Episode No OBEpisode recorded.
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
== END 2024-11-11 15:46 | disposition home or self-care (01) ==
LOC: HO.HOP 15:03
PROVIDERS: PCP Nurse Practitioner Family; Visit Provider Psychiatry & Neurology Psychiatry
DX: F42.9 Obsessive-compulsive disorder, unspecified (principal); F33.2 Major depressive disorder, recurrent severe without psychotic features
CPT/HCPCS: 90833; 99213

== ENCOUNTER → 2024-11-11 15:03 | Outpatient (BNVA) | payer MEDICARE, SELFPAY | PROVIDERS: PCP Nurse Practitioner Family; Visit Provider Psychiatry & Neurology Psychiatry | DX: F42.9 Obsessive-compulsive disorder, unspecified (principal); F33.2 Major depressive disorder, recurrent severe without psychotic features; Z71.89 Other specified counseling | CPT/HCPCS: 99212 ==

== ENCOUNTER 2024-12-17 14:02 | Outpatient (AMB) | payer MEDICARE, SELFPAY ==
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
--- OUTSIDE RECORDS SUMMARY | 2024-12-17 17:34 | XMS_ITS | Data Portability ---
Author Organization [facility], [address] Address [address] [place] [address] Assessment No assessment recorded. Plan of Treatment Reminders Order Date Submit Date Provider Last Modified By Organization Details Last Modified Time Details Appointments None recorded. Lab urinalysis , dipstick 2022 023 [email or web address] [facility], [address] [place] [address], [place], [address], 16:29:08 culture, urine 2022 023 [place] [facility], [address] [place] [address], [place], [address], 10:06:34 Referral None recorded. Procedures None recorded. Surgeries None recorded. Imaging None recorded. Medication Orders None recorded. Patient TargetsNo targets recorded. Patient Instructions Encounter Date Encounter Id Patient Instructions Last Modified By Organization Details Last Modified Time 10/15/2022 [id number] We recommend you get a repeat urinalysis [...] routine FINAL REPORT abnormal Not Available [facility] ([facility]) [address] [facility], [place], [address], 10/18/2022 12:06:27 10/15/19 23 10/18/2022 URINE CULTU [...] ng units per mL Not Available [facility] ([facility]) [address] [facility], [place], [address], 10/18/2022 12:06:27 10/15/19 23 10/18/2022 URINE CULTU [...] thopr im/Unger lfa S Not Available [facility] ([facility]) [address] [facility], [place], [address], 10/18/2022 12:06:27 10/15/1910/15/2022 urina lysis , dipst ick Unknown Analyte Normal = light yellow Not Available [facility] [address], [place], [address], 10/15/2022 14:30:39 10/15/1910/15/2022 urina lysis , dipst ick Unknown Analyte Yellow Not Available [facility] [address], [place], [address], 10/15/2022 14:30:39 10/15/1910/15/2022 urina lysis , dipst ick Unknown Analyte Normal = clear Not Available [facility] [address], [place], [address], 10/15/2022 14:30:39 10/15/19 23 10/15/2022 urina lysis , dipst ick Unknown Analyte Cloudy Not Available tee [address], [place], [address], 10/15/2022 14:30:39 10/15/1910/15/2022 urina lysis , dipst ick Unknown Analyte Normal = negati ve Not Available [facility] [address], [place], [address], 10/15/2022 14:30:39 10/15/1910/15/2022 urina lysis , dipst ick Unknown Analyte Negati ve Not Available [facility] [address], [place], [address], 10/15/2022 14:30:39 10/15/19 23 10/15/2022 urina lysis , dipst ick Unknown Analyte Normal = Negati ve Not Available [facility] [address], [place], [address], 10/15/2022 14:30:39 10/15/1910/15/2022 urina lysis , dipst ick Unknown Analyte Negati ve Not Available [facility] [address], [place], [address], 10/15/2022 14:30:39 10/15/1910/15/2022 urina lysis , dipst ick Unknown Analyte Normal = Negati ve Not Available [facility] [address], [place], [address], 10/15/2022 14:30:39 10/15/19 23 10/15/2022 urina lysis , dipst ick Unknown Analyte Negati ve Not Available [facility] [address], [place], [address], 10/15/2022 14:30:39 10/15/1910/15/2022 urina lysis , dipst ick Unknown Analyte Normal = 1.010, 1.015, 1.020 Not Available [facility] [address], [place], [address], 10/15/2022 14:30:39 10/15/1910/15/2022 urina lysis , dipst ick Unknown Analyte 1.020 Not Available [facility] [address], [place], [address], 10/15/2022 14:30:39 10/15/1910/15/2022 urina lysis , dipst ick Unknown Analyte Normal = Negati ve Not Available [facility] [address], [place], [address], 10/15/2022 14:30:39 10/15/1910/15/2022 urina lysis , dipst ick Unknown Analyte Large Not Available tee [address], [place], [address], 10/15/2022 14:30:39 10/15/1910/15/2022 urina lysis , dipst ick Unknown Analyte Normal = 6.5, 7.0, 7.5, 8.0 Not Available [facility] [address], [place], [address], 10/15/2022 14:30:39 10/15/1910/15/2022 urina lysis , dipst ick Unknown Analyte 7.0 Not Available [facility] [address], [place], [address], 10/15/2022 14:30:39 10/15/1910/15/2022 urina lysis , dipst ick Unknown Analyte Normal = Negati ve Not Available [facility] [address], [place], [address], 10/15/2022 14:30:39 10/15/19 23 10/15/2022 urina lysis , dipst ick Unknown Analyte 30 mg/dL Not Available [facility] [address], [place], [address], 10/15/2022 14:30:39 10/15/1910/15/2022 urina lysis , dipst ick Unknown Analyte Normal = 0.2, 1.0 Not Available [facility] [address], [place], [address], 10/15/2022 14:30:39 10/15/19 23 10/15/2022 urina lysis , dipst ick Unknown Analyte 0.2 E.U./d L Not Available [facility] [address], [place], [address], 10/15/2022 14:30:39 10/15/1910/15/2022 urina lysis , dipst ick Unknown Analyte Normal = Negati ve Not Available [facility] [address], [place], [address], 10/15/2022 14:30:39 10/15/1910/15/2022 urina lysis , dipst ick Unknown Analyte Negati ve Not Available [address] [address], [place], [address], 10/15/2022 14:30:39 10/15/1910/15/2022 urina lysis , dipst ick Unknown Analyte Normal = Negati ve Not Available [facility] [address], [place], [address], 10/15/2022 14:30:39 10/15/1910/15/2022 urina lysis , dipst ick Unknown Analyte Modera te Not Available [address] [address], [place], [address], 10/15/2022 14:30:39 Result Notes None recorded. Problems Name Problem SNOMED Code Status Onset Date Resolution Date Notes Provider Name and Address Organization Details Recorded Time Gastroesophage al reflux disease 999419791 Active 2022 Missy Jae null, PA - [facility] 14:34:47 Anxiety 11154478 Active 2022 Missy Foreston null, PA - [facility] 14:35:10 Depressive disorder 16936950 Active 2022 Missy Jae null, PA - [facility] 14:35:14 Notes:Restricitve airway dis ease Problem Notes None recorded. Procedures Surgical History Date Name Laterality Status Provider Name and Address Organization Details Recorded Time Appendectomy completed Missy Foreston PA - [facility] 10/15/2022 14:35:32 cholecystostomy completed Missy Foreston P A - [facility] 10/15/2022 14:35:37 Removal of tonsils completed Missy Beeb e PA - [facility] 10/15/2022 14:35:50 Imaging Results None recorded. Procedure Notes None recorded. Medical Equipment None Reported. Allergies Allergen ID Allergen Name Allergen Category Reaction Reaction Severity Criticality Documentation Date Start Date Code Code System Note Provider Name and Address Organization Details Recorded Time 155592 Sudafed medicatio n insomnia Not available low 10/15/2022 06955 2 RxNorm Missy Jae null, PA - [facility] 14:31:58 496507 Lyrica medicatio n dizziness Not available high 10/15/2022 55623 1 RxNorm Missy Jae null, PA - [facility] 14:32:06 Medications [...] Updated DateTime 3 170.18 cm 32.9 kg/m2 38245.4 g 99 % 99 % 105 /min 20 /min 98.1 [degF] 155 mm[Hg] 83 mm[Hg] Missy Jae PA - [facility] 3 14:36:59 Social History Question Answer Notes LastModified by Organizat ion Details LastModified Time Tobacco Smoking Status Never Smoker Missy Foreston null, PA - [facility] 10/15/2022 14:35:22 [...] or 50 mcg/0.25mL dose 1 completed Missy Foreston null, PA - [facility] 10/15/2022 14:32:13 COVID-19, mRNA, LNP-S, PF, 100 mcg/0.5mL dose or 50 mcg/0.25mL dose 1 completed Missy Foreston null, PA - [facility] 10/15/2022 14:32:13 Influenza, split virus, trivalent, preservative 0 completed Missy Foreston null, PA - [facility] 10/15/2022 14:32:13 Past Encounters Encounter ID Performer Location Encounter Start Date Encounter Closed Date Diagnosis/Indication Diagnosis SNOMED-CT Code Diagnosis ICD10 Code Diagnosis Note [id number] 21005[facility] Dia [address] [place] [address] 08/13/2020 14:18:01 08/13/2020 15:37:22 [id number] 20995_[address] [address] 08/13/2020 13:19:52 08/13/2020 15:34:27 [id number] [place] [address] [address] 10/15/2022 14:08:24 10/15/2022 16:32:00 Acute urinary tract infection 491538530 N39.0 Health Concerns Section Related Observation LastModified by Organization Detai ls LastModified Time None Recorded Concern Status LastModified by Organization Details LastModified Time None Recorded Advance Directives Directive None Recorded Payers Encounter Date Sequence Insurance Name Policy Number Policy Monahan Covered Member ID Monahan Member ID Guarantor Name 08/13/2020 1 [facility] [id number] Shashank Candelaria [id number] Alida Candelaria 08/13/2020 1 [facility] [id number] Shashank Candelaria [id number] Alida Candelaria 10/15/2022 1 MEDICARE [place]: [facility] Alida Candelaria [id number] Alida Candelaria Notes Date Note Type Note [...] frequency Severity:moderate Duration:2 days Dipak Kathleen NP [facility] [place], [address], PA - [facility] 10/20/2022 09:59:41 OBGyn Episode No OBEpisode recorded.
--- OUTSIDE RECORDS SUMMARY | 2024-12-17 17:35 | XMS_ITS | Clinical Summary ---
Author Organization [facility] Address [address] [place] [address] Care Team Providers Care Adapted Physical Education Teacher Name Role Phone Unavailable Primary Care Provider [...]
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
--- OUTSIDE RECORDS SUMMARY | 2024-12-17 17:35 | XMS_ITS | Clinical Summary ---
Author Organization [facility] [address] [facility] Address [address] [place] [address] Phone Care Team Providers Care Control Room Operator Name Role Phone July Estrella CHILD DAYCARE WORKER Primary Care Provider Encounters Date Type Department Care Team Description 09/30/2024 Telephone Gastroenterology - [facility] [address] [facility] [address] [place] [address] [phone] Rito Curtis MD from Last 3 Months [...] Result from Last 3 Months Insurance MEDICARE [employer] Care Teams Control Room Operator Relationship Specialty Start Date End Date July Estrella NP [address] [facility] [place] [address] PCP - General Nurse Practitioner 09/30/24
== END 2024-12-17 14:46 | disposition home or self-care (01) ==
LOC: HO.HOP 14:02
PROVIDERS: PCP Nurse Practitioner Family; Visit Provider Psychiatry & Neurology Psychiatry
DX: F42.9 Obsessive-compulsive disorder, unspecified (principal); F43.10 Post-traumatic stress disorder, unspecified; F33.42 Major depressive disorder, recurrent, in full remission
CPT/HCPCS: 99214

== ENCOUNTER → 2024-12-17 14:02 | Outpatient (BNVA) | payer MEDICARE, SELFPAY | PROVIDERS: PCP Nurse Practitioner Family; Visit Provider Psychiatry & Neurology Psychiatry | DX: F33.42 Major depressive disorder, recurrent, in full remission (principal); F42.9 Obsessive-compulsive disorder, unspecified; F43.10 Post-traumatic stress disorder, unspecified; Z71.89 Other specified counseling | CPT/HCPCS: 99212 ==

== ENCOUNTER 2025-02-11 13:26 | Outpatient (AMB) | payer MEDICARE, SELFPAY ==
--- OUTSIDE RECORDS SUMMARY | 2025-02-11 13:33 | XMS_ITS | Data Portability ---
Author Organization [facility], [address] Address [address] [place] [address] Assessment No assessment recorded. Plan of Treatment Reminders Order Date Submit Date Provider Last Modified By Organization Details Last Modified Time Details Appointments None recorded. Lab urinalysis , dipstick 2022 023 [email or web address] [facility], [address] [place] [address], [place], [address], 16:29:08 culture, urine 2022 023 [facility], [address] [place] [address], [place], [address], 10:06:34 Referral None recorded. Procedures None recorded. Surgeries None recorded. Imaging None recorded. Medication Orders None recorded. Patient TargetsNo targets recorded. Patient Instructions Encounter Date Encounter Id Patient Instructions Last Modified By Organization Details Last Modified Time 10/15/2022 [id number] We recommend you get a repeat urinalysis [...] routine FINAL REPORT abnormal Not Available [facility] ([facility]) [address] [facility], [place], [address], 10/18/2022 12:06:27 10/15/19 23 10/18/2022 URINE CULTU [...] ng units per mL Not Available [facility] ([facility]) [address] [facility], [place], [address], 10/18/2022 12:06:27 10/15/19 23 10/18/2022 URINE CULTU [...] thopr im/Unger lfa S Not Available [facility] ([facility]) [address] [facility], [place], [address], 10/18/2022 12:06:27 10/15/1910/15/2022 urina lysis , dipst ick Unknown Analyte Normal = light yellow Not Available [facility] [address], [place], [address], 10/15/2022 14:30:39 10/15/1910/15/2022 urina lysis , dipst ick Unknown Analyte Yellow Not Available [facility] [address], [place], [address], 10/15/2022 14:30:39 10/15/1910/15/2022 urina lysis , dipst ick Unknown Analyte Normal = clear Not Available [facility] [address], [place], [address], 10/15/2022 14:30:39 10/15/19 23 10/15/2022 urina lysis , dipst ick Unknown Analyte Cloudy Not Available [facility] [address], [place], [address], 10/15/2022 14:30:39 10/15/1910/15/2022 urina lysis , dipst ick Unknown Analyte Normal = negati ve Not Available [facility] [address], [place], [address], 10/15/2022 14:30:39 10/15/1910/15/2022 urina lysis , dipst ick Unknown Analyte Negati ve Not Available [facility] [address], [place], [address], 10/15/2022 14:30:39 10/15/19 23 10/15/2022 urina lysis , dipst ick Unknown Analyte Normal = Negati ve Not Available [facility] [address], [place], [address], 10/15/2022 14:30:39 10/15/1910/15/2022 urina lysis , dipst ick Unknown Analyte Negati ve Not Available [facility] [address], [place], [address], 10/15/2022 14:30:39 10/15/1910/15/2022 urina lysis , dipst ick Unknown Analyte Normal = Negati ve Not Available [facility] [address], [place], [address], 10/15/2022 14:30:39 10/15/19 23 10/15/2022 urina lysis , dipst ick Unknown Analyte Negati ve Not Available [facility] [address], [place], [address], 10/15/2022 14:30:39 10/15/1910/15/2022 urina lysis , dipst ick Unknown Analyte Normal = 1.010, 1.015, 1.020 Not Available [facility] [address], [place], [address], 10/15/2022 14:30:39 10/15/1910/15/2022 urina lysis , dipst ick Unknown Analyte 1.020 Not Available [facility] [address], [place], [address], 10/15/2022 14:30:39 10/15/1910/15/2022 urina lysis , dipst ick Unknown Analyte Normal = Negati ve Not Available [facility] [address], [place], [address], 10/15/2022 14:30:39 10/15/1910/15/2022 urina lysis , dipst ick Unknown Analyte Large Not Available tee [address], [place], [address], 10/15/2022 14:30:39 10/15/1910/15/2022 urina lysis , dipst ick Unknown Analyte Normal = 6.5, 7.0, 7.5, 8.0 Not Available [facility] [address], [place], [address], 10/15/2022 14:30:39 10/15/1910/15/2022 urina lysis , dipst ick Unknown Analyte 7.0 Not Available [facility] [address], [place], [address], 10/15/2022 14:30:39 10/15/1910/15/2022 urina lysis , dipst ick Unknown Analyte Normal = Negati ve Not Available [facility] [address], [place], [address], 10/15/2022 14:30:39 10/15/19 23 10/15/2022 urina lysis , dipst ick Unknown Analyte 30 mg/dL Not Available [facility] [address], [place], [address], 10/15/2022 14:30:39 10/15/1910/15/2022 urina lysis , dipst ick Unknown Analyte Normal = 0.2, 1.0 Not Available [facility] [address], [place], [address], 10/15/2022 14:30:39 10/15/19 23 10/15/2022 urina lysis , dipst ick Unknown Analyte 0.2 E.U./d L Not Available [facility] [address], [place], [address], 10/15/2022 14:30:39 10/15/1910/15/2022 urina lysis , dipst ick Unknown Analyte Normal = Negati ve Not Available [facility] [address], [place], [address], 10/15/2022 14:30:39 10/15/1910/15/2022 urina lysis , dipst ick Unknown Analyte Negati ve Not Available [address] [facility] [address], [place], [address], 10/15/2022 14:30:39 10/15/1910/15/2022 urina lysis , dipst ick Unknown Analyte Normal = Negati ve Not Available [facility] [address], [place], [address], 10/15/2022 14:30:39 10/15/1910/15/2022 urina lysis , dipst ick Unknown Analyte Modera te Not Available [address] [address], [place], [address], 10/15/2022 14:30:39 Result Notes None recorded. Problems Name Problem SNOMED Code Status Onset Date Resolution Date Notes Provider Name and Address Organization Details Recorded Time Gastroesophage al reflux disease 857440690 Active 2022 Missy Polk null, [place] - [facility] 14:34:47 Anxiety 22775342 Active 2022 Missy Jae null, [place] - [facility] 14:35:10 Depressive disorder 00799134 Active 2022 Missy Polk null, [place] - [facility] 14:35:14 Notes:Restricitve [...] Name and Address Organization Details Recorded Time 466136 Sudafed medicatio n insomnia Not available low 10/15/2022 89309 2 RxNorm Missy Jae null, [place] - [facility] 14:31:58 659297 Lyrica medicatio n dizziness Not available high 10/15/2022 38692 1 RxNorm Missy Polk null, [place] - [facility] 14:32:06 Medications [...] Updated DateTime 3 170.18 cm 32.9 kg/m2 81452.4 g 99 % 99 % 105 /min 20 /min 98.1 [degF] 155 mm[Hg] 83 mm[Hg] Missy Jae PA - [facility] 3 14:36:59 Social History Question Answer Notes LastModified by Organizat ion Details LastModified Time Tobacco Smoking Status Never Smoker Missy Polk null, [place] - [facility] 10/15/2022 14:35:22 Have You Had Direct Contact, Or Contact During Intimacy, With Monkeypox Rash, Scabs, Or Body Fluids From A Person With Monkeypox? No Information not available 10/15/2022 Have You Recently Traveled Abroad? No Information not available 10/15/2022 Sex: Unknown Functional Status Question Answer Note LastModified by Organizat ion Details LastModified Time Do you use any illicit or recreational drugs? No Information not available 10/15/2022 Do you or have you ever used any other forms of tobacco or nicotine? No Information not available 10/15/2022 What is your level of alcohol consumption? None Information not available 10/15/2022 Mental Status None recorded. Family History Relationship [...] or 50 mcg/0.25mL dose 1 completed Missy Polk null, [place] - [facility] 10/15/2022 14:32:13 COVID-19, mRNA, LNP-S, PF, 100 mcg/0.5mL dose or 50 mcg/0.25mL dose 1 completed Missy Jae null, PA - [facility] 10/15/2022 14:32:13 COVID-19, mRNA, LNP-S, PF, 100 mcg/0.5mL dose or 50 mcg/0.25mL dose 1 completed Missy Jae null, [place] - [facility] 10/15/2022 14:32:13 Influenza, split virus, trivalent, preservative 0 completed SHANT Carr - [facility] 10/15/2022 14:32:13 Past Encounters Encounter ID Performer Location Encounter Start Date Encounter Closed Date Diagnosis/Indication Diagnosis SNOMED-CT Code Diagnosis ICD10 Code Diagnosis Note [id number] [facility] [address] [place] [address] 08/13/2020 14:18:01 08/13/2020 15:37:22 [id number] [facility] [address] [place] [address] 08/13/2020 13:19:52 08/13/2020 15:34:27 [id number] [place] [address] [place] [address] 10/15/2022 14:08:24 10/15/2022 16:32:00 Acute urinary tract infection 314641079 N39.0 Health Concerns Section Related Observation LastModified by Organization Detai ls LastModified Time None Recorded Concern Status LastModified by Organization Details LastModified Time None Recorded Advance Directives Directive None Recorded Payers Insurance Date Sequence Insurance Name Policy Number Policy Monahan Covered Member ID Monahan Member ID Guarantor Name 10/15/2022 NINO A - MEDICARE-[employer] CARE HOME BOARD (MEDICARE) Alida Candelaria [id number] Alida aCndelaria 10/15/2022 1 [place] [employer] Alida Candelaria [id number] Alida Candelaria 10/15/2022 1 [facility] (O) [id number] Shashank Candelaria [id number] Alida Candelaria 12/06/2022 2 AARP (MEDICARE SUPPLEMENT) Alida Candelaria [id number] Alida Candelaria Notes Date Note Type Note [...] Severity:moderate Duration:2 days Dipak Kathleen NP [address] [place], [address], [place] - [facility] 10/20/2022 09:59:41 OBGyn Episode No OBEpisode recorded.
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
== END 2025-02-11 15:49 | disposition home or self-care (01) ==
LOC: HO.HOP 13:26
PROVIDERS: PCP Nurse Practitioner Family; Visit Provider Psychiatry & Neurology Psychiatry
DX: F43.10 Post-traumatic stress disorder, unspecified (principal); F33.42 Major depressive disorder, recurrent, in full remission
CPT/HCPCS: 99214

== ENCOUNTER → 2025-02-11 13:26 | Outpatient (BNVA) | payer MEDICARE, SELFPAY | PROVIDERS: PCP Nurse Practitioner Family; Visit Provider Psychiatry & Neurology Psychiatry | DX: F43.10 Post-traumatic stress disorder, unspecified (principal); F33.42 Major depressive disorder, recurrent, in full remission | CPT/HCPCS: 99212 ==

== ENCOUNTER 2025-03-09 11:29 | Outpatient (REF) | payer MEDICARE, SELFPAY ==
[2025-03-09 13:20] LABS: Alanine Aminotransferase 35 U/L (0-31); Alkaline Phosphatase 93 U/L (39-117); Aspartate Amino Transferase 31 U/L (5-31); Bilirubin Direct 0.1 mg/dL (0.0-0.5); Bilirubin Total 0.3 mg/dL (0.0-1.0); Total Protein 6.5 g/dL (6.5-8.0)
== END 2025-03-09 11:30 | disposition home or self-care (01) ==
LOC: HO.LAB 11:29
PROVIDERS: PCP Nurse Practitioner Family; Visit Provider Psychiatry & Neurology Psychiatry
DX: K76.0 Fatty (change of) liver, not elsewhere classified (principal)
CPT/HCPCS: 36415; 80076

== ENCOUNTER 2025-04-29 14:08 | Outpatient (AMB) | payer MEDICARE, SELFPAY ==
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
--- OUTSIDE RECORDS SUMMARY | 2025-04-29 14:15 | XMS_ITS | Clinical Summary ---
Author Organization [facility] Address [address] [place] [address] Care Team Providers Care Church Communications Administrator Name Role Phone Unavailable Primary Care Provider Unavailabl e Social History Tobacco Use Types Packs/Day Years Used Date Smoking Tobacco: Never Assessed Comments Unknown Sex and Gender Information Value Date Recorded Sex Assigned at Not on file Legal Sex Female 1:17 AM EDT Gender Identity Not on file Sexual Orientation Not on file Plan of Treatment Health Maintenance Due Date Last Done Comments Hepatitis C Virus Screening 1955 DTaP/Tdap/Td Vaccines (1 - Tdap) 11/29/1975 Mammogram 1996 Colonoscopy 2001 Pneumococcal Vaccines 50+ (1 of 1 - PCV) 2006 Zoster (Shingles) Vaccine (1 of 2) 2006 DXA Bone Density (Females,Ag es 65 and older) 2021 COVID-19 Vaccine ( - 2023-2 5 season) 2024 Influenza Vaccine 04/23/2025 RSV Vaccine 60 years and old er and Patients (1 - 1-dose 75+ series) 11/29/2031 Hepatitis B Vaccines Aged Out No long er eligible based on patient's age to complete this topic Insurance MAG [place] [id number] [facility]
--- OUTSIDE RECORDS SUMMARY | 2025-04-29 14:15 | XMS_ITS | Clinical Summary ---
Author Organization [facility] Address [address] [place] [id number] Phone Care Team Providers Care High School Coach Name Role Phone July Estrella NP Primary Care Provider [phone] Social History Tobacco Use Types Packs/Day Years Used Date Smoking Tobacco: Never Assessed Education Answer Date Recorded Are you interested in more education? Not on mallory e 09/18/2024 Are you concerned about learning? Not on file 09/18/2024 No 09/18/2024 No 09/18/2024 Digital Access Answer Date Recorded No 09/18/2024 No 09/18/2024 Reliable internet access at home? Not on file 09/18/2024 Device with a working camera? Not on file Comments Unknown Sex and Gender Information Value Date Recorded Sex Assigned at Female 07/23/2024 1:30 PM EDT Legal Sex Female 1:26 PM EDT Gender Identity Female 07/23/2024 1:30 PM EDT Sexual Orientation Straight 07/23/2024 1: 30 PM EDT Plan of Treatment Upcoming Encounters Date Type Department Care Team (Late st Contact Info) Description 07/13/2025 1:00 PM EDT Office Visit [facility] Movement Disorders [address], [facility] [address] [place] [address] Pau Wray MD, PhD [address] [place] [id number] [email or web address] Health Maintenance Due Date Last Done Comments Adult Td,Tdap Booster 1955 LIPID PANEL 1956 DEPRESSION SCREENING 1968 SMOKING Hx and SMOKELESS TOB ACCO SCREENING 1969 HEPATITIS C SCREENING 1974 MAMMOGRAM 1996 COLOGUARD 2001 COLONOSCOPY 2001 COLORECTAL CANCER SCREENING 2001 FIT TEST 2001 FOBT 2001 SIGMOIDOSCOPY 2001 VIRTUAL COLONOSCOPY 2001 PNEUMOCOCCAL VACCINES (50+ y ears) (1 of 1 - PCV) 2006 ZOSTER VACCINES (1 of 2) 2006 OSTEOPOROSIS SCREENING INITI AL (ONE-TIME) 2021 COVID-19 VACCINE ( - 2023-2 5 season) 2024 RSV VACCINE (1 - 1-dose 75+ series) 11/29/2031 HEPATITIS A VACCINES Aged Out No long er eligible based on patient's age to complete this topic HIB VACCINES Aged Out No longer eligi ble based on patient's age to complete this topic MENINGOCOCCAL VACCINES (ACWY) Aged Out No longer eligible based on patient's age to complete this topic MENINGOCOCCAL VACCINES (B) Aged Out N o longer eligible based on patient's age to complete this topic Medical Devices Not on file Insurance MEDICARE RAILROAD [facility] MEDICARE SUPPLEMENT MEDICARE RAILROAD Member Subscriber Plan / Payer (Ef fective 2021-Present) Name:Alida Candelaria Member ID:[id number] Relation to Subscriber:Self Name:Alida Candelaria Subscriber ID:[id number] Payer ID:[id number] Group ID:Not on file Type:Medicare Address: [address] MEDICARE SUPPLEMENT MEDICARE RAILROAD Member Subscriber Plan / Payer (Ef fective 2021-Present) Name:Alida Candelaria Member ID:[id number] Relation to Subscriber:Self Name:Alida Candelaria Subscriber ID:[id number] Payer ID:[id number] Group ID:Not on file Type:Medicare Address: [place] [id number] MEDICARE SUPPLEMENT MEDICARE RAILROAD Member Subscriber Plan / Payer (Ef fective 2021-) Name:Alida Candelaria Member ID:[id number] Relation to Subscriber:Self Name:Alida Candelaria Subscriber ID:[id number] Payer ID:[id number] Group ID:Not on file Type:Medicare Address: [place] [address] [place] [address] MEDICARE SUPPLEMENT MEDICARE RAILRO[address] [facility] MEDICARE SUPPLEMENT Member Subscriber Plan / Payer (Ef fective 2023-Present) Name:Alida Candelaria Relation to Subscriber:Self Name:Alida Candelaria Payer ID:[id number] (NAIC) Group ID:Not on file Type:O Address: [address] [place] [id number] [place] [address] [facility] MEDICARE SUPPLEMENT Care Teams High School Coach Relationship Specialty Start Date End Date July Estrella NP [address] [place] [address] PCP - General Nurse Practitioner 07/23/24 Additional Source Comments The information contained in this document represents components of the legal health record. It is not the complete legal health record.[facility]
--- OUTSIDE RECORDS SUMMARY | 2025-04-29 14:15 | XMS_ITS | Clinical Summary ---
Author Organization [facility] [address] [facility] Address [address] [place] [address] Phone Care Team Providers Care Lidar Technician Name Role Phone July Estrella LEAD SOFTWARE ARCHITECT Primary Care Provider Social History Tobacco Use Types Packs/Day Years [...] 2) 2006 Colorectal Cancer Screening: Colonoscopy 08/26/2022 Falls Risk Assessment 08/26/2022 Hepatitis C Screening 08/26/2022 Osteoporosis Screening (Bone Density Screening) 08/26/2022 Social Influencers of Health Screening 08/26/2022 COVID-19 Vaccine ( - 2023-2 5 season) 2024 Depression Screening 09/23/2024 Influenza Vaccine (#1) 2025 RSV Immunization Adult Patie nts (1 - 1-dose 75+ series) 11/29/2031 HIB [...] age to complete this topic Meningococcal B Vaccine Aged Out No l onger eligible based on patient's age to complete this topic RSV Immunization Patients Un anand 20 months Aged Out No longer eligible b ased on patient's age to complete this topic Varicella Vaccines Aged Out No longer eligible based on patient's age to complete this topic Insurance MEDICARE [facility] Care Teams Lidar Technician Relationship Specialty Start Date End Date July Estrella NP [address] [facility] [place] [address] PCP - General Nurse Practitioner 09/30/24
== END 2025-04-29 14:12 | disposition home or self-care (01) ==
LOC: HO.HOP 14:08
PROVIDERS: PCP Nurse Practitioner Family; Visit Provider Psychiatry & Neurology Psychiatry
DX: F42.9 Obsessive-compulsive disorder, unspecified (principal); F43.10 Post-traumatic stress disorder, unspecified; F33.42 Major depressive disorder, recurrent, in full remission
CPT/HCPCS: 99214

== ENCOUNTER → 2025-04-29 14:08 | Outpatient (BNVA) | payer MEDICARE, SELFPAY | PROVIDERS: PCP Nurse Practitioner Family; Visit Provider Psychiatry & Neurology Psychiatry | DX: F33.42 Major depressive disorder, recurrent, in full remission (principal); F42.9 Obsessive-compulsive disorder, unspecified; F43.10 Post-traumatic stress disorder, unspecified | CPT/HCPCS: 99212 ==

== ENCOUNTER 2025-08-05 13:57 | Outpatient (AMB) | payer MEDICARE, SELFPAY ==
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
--- OUTSIDE RECORDS SUMMARY | 2025-08-05 17:21 | XMS_ITS | Clinical Summary ---
Author Organization [facility] Address [address] [place] [address] Care Team Providers Care Orthodontic Laboratory Technician Name Role Phone Out Of Area, Pcp-Mp Primary Care Provider Unavai lable Allergies Active Allergy Reactions Criticality Noted Date Comments Pseudoephedrine Hcl 06/14/2024 Social History Tobacco Use Types Packs/Day Years Used Date Smoking Tobacco: Never Assessed Comments Unknown Sex and Gender Information Value Date Recorded Sex Assigned at Not on file Legal Sex Female 11:53 EDT Gender Identity Female 06/14/2024 12:45 EDT Sexual Orientation Not on file Last Filed Vital Signs Vital Sign Reading Time Taken Comments Blood Pressure 127/78 06/14/2024 1430 EDT Pulse 83 06/14/2024 1207 EDT Temperature 36.3 C (97.3 F) 06/14/2024 1207 EDT Respiratory Rate 16 06/14/2024 1207 EDT Oxygen Saturation 96% 06/14/2024 1430 EDT Inhaled Oxygen Concentration - - Weight - - Height - - Body Mass Index - - Plan of Treatment Health Maintenance Due Date Last Done Comments Hepatitis C Screen 1955 Fall Risk Screening 2021 COVID-19 Vaccine ( season) 2024 09/20/2021, 11/11/2020, 10/14/2020 RSV Immunization ( o r 60+ Years) (1 - 1-dose 75+ series) 11/29/[address] [place] [address] [place] [address] RAILROAD MEDICARE RAILROAD MEDICARE [facility] [place] [id number] Care Teams Orthodontic Laboratory Technician Relationship Specialty Start Date End Date Out Of Area, Pcp-Mp PCP - General 06/14/24
--- OUTSIDE RECORDS SUMMARY | 2025-08-05 17:21 | XMS_ITS | Clinical Summary ---
Author Organization [facility] [address] [facility] Address [address] [place] [address] Phone Care Team Providers Care Cigarette Making Examiner Name Role Phone July Estrella SALES DATA ANALYST Primary Care Provider Social History Tobacco Use Types Packs/Day Years Used Date Smoking Tobacco: Never Assessed Comments Unknown Sex and Gender Information Value Date Recorded Sex Assigned at Not on file Legal Sex Female 12:49 AM EST Gender Identity Not on file Sexual Orientation Not on file Plan of Treatment Health Maintenance Due Date Last Done Comments Breast Cancer Screening 1955 Colorectal Cancer Screening: Colonoscopy 1955 DTaP,Tdap,and Td Vaccines (1 - Tdap) 11/29/1975 Pneumococcal Vaccine: 50+ Ye ars (1 of 1 - PCV) 2006 Zoster Vaccines (1 of 2) 2006 Falls Risk Assessment 08/26/2022 Hepatitis C Screening 08/26/2022 Osteoporosis Screening (Bone Density Screening) 08/26/2022 Social Influencers of Health Screening 08/26/2022 Depression Screening 09/23/2024 COVID-19 Vaccine (1 - 2024-2 6 season) 2025 Influenza Vaccine (#1) 2025 RSV Immunization Adult [...] age to complete this topic Insurance MEDICARE [facility] Care Teams Cigarette Making Examiner Relationship Specialty Start Date End Date July Estrella NP [address] [facility] [place] [address] PCP - General Nurse Practitioner 09/30/24
--- OUTSIDE RECORDS SUMMARY | 2025-08-05 17:21 | XMS_ITS | Patient Health Record ---
Author Organization [facility] Address [address] [facility] [place] [address] Care Team Providers Care Orthotic Finish Grinding Technician Name Role Phone Mirlande RODGERS, Tena Primary Care Provider Unatrey jimenez Quentin Giovana Unavailable [phone] Allergies Allergen (clinical drug ingredient) Drug/Non Drug Allergy documented on EMR Reaction Allergy Type Onset Date Status pseudofed (uncoded) Unknown Allergy Active Reason For Referral No Information Medications Medication SIG (Take, Route, Fr equency, Duration) Notes Start Date End Date Status Paxil 40 MG 1 tablet in the morn ing Orally Once a day; Duration: 30 day(s) Active Abilify 10 MG 1 tablet Orally Once a day; Duration: 30 day(s) Active Wellbutrin XL 300 MG 1 tablet in the mor patrick Orally Once a day; Duration: 30 day(s) Active Physical Therapy . . . 2-3x/week; Durat ion: 3-4 weeks 04/07/2019 Active Invega Active KlonoPIN 1 MG 1 tablet Orally Once a day Active SEROquel 200 MG 1 tablet Orally Once a day; Duration: 30 day(s) Active Social History Tobacco Use: Social History Observation Description Date Details (start date - stop date) Never Smoker NA - NA Tobacco Use/Smoking Question Answer Notes Are you a: nonsmoker Additional Findings: Tobacco Non-User Aggressive non-smoker Alcohol Screen Question Answer Notes Did you have a drink containing alcohol in the p ast year? No Points 0 Interpretation Negative Tobacco use other than smoking: Question Answer Notes Are you an other tobacco user? No Plan Of Treatment Pending Test Test Name Order Date X ray : Foot, left 3V 03/10/2019 Insurance Providers Payer Name Payer Address Payer Phone Subscriber Number Group Number Insured Name Patient Relationship to Insured Coverage Start Date Coverage End Date [facility] [id number] [address] [address] [place] [address] [phone] [id number] Alida Candelaria Self - patient is the insured [facility] [id number] [address] [address] [place] [address] [phone] [id number] Alida Candelaria Self - patient is the insured Medical (General) History Medical History History ICD Code Anxiety Depression Diverticulitis Psychiatric disorder Reflux ( GERD) Measles Chicken pox Surgical History Surgery Date(Month/Year) Tonselectomy 1963 Appendectomy 1969 Cholecystectomy 2016 Hospitalization History Reason Date(Month/Year[place] [facility] [place] suicidal thoughts 04/24 and 09/2018
--- OUTSIDE RECORDS SUMMARY | 2025-08-05 17:21 | XMS_ITS | Clinical Summary ---
Author Organization [facility] Address [address] [place] [address] Phone Care Team Providers Care Cook Larder Name Role Phone July Estrella NP Primary Care Provider [phone] Social History Tobacco Use Types Packs/Day Years [...] Care Team (Late st Contact Info) Description 07/12/2026 1:00 PM EDT Office Visit [facility] Neurology Movement Disorders [address], [facility] [address] [place] [address] Pau Wray MD, PhD [address] [place] [id number] [email or web address] Health Maintenance Due Date Last Done Comments [...] 2006 OSTEOPOROSIS SCREENING INITI AL (ONE-TIME) 2021 INFLUENZA VACCINE (#1) 2025 COVID-19 VACCINE (1 - 2024-2 6 season) 2025 RSV VACCINE (1 - 1-dose 75+ series) 11/29/2031 HEPATITIS A VACCINES Aged Out No long er eligible based on patient's age to complete this topic HIB VACCINES Aged Out No longer eligi ble based on patient's age to complete this topic IPV VACCINES Aged Out No longer eligi ble based on patient's age to complete this topic MENINGOCOCCAL VACCINES (ACWY) Aged Out No longer eligible based on patient's age to complete this topic MENINGOCOCCAL VACCINES (B) Aged Out N o longer eligible based on patient's age to complete this topic Medical Devices Not on file Insurance MEDICARE RAILROAD [facility] MEDICARE SUPPLEMENT MEDICARE RAILROAD [facility] MEDICARE SUPPLEMENT MEDICARE RAILROAD [facility] MEDICARE SUPPLEMENT MEDICARE RAILROAD Member Subscriber Plan / Payer (Ef fective 2021-Present) Name:Alida Candelaria Member ID:[id number] Relation to Subscriber:Self Name:Alida Candelaria Subscriber ID:[id number] Payer ID:[id number] Group ID:Not on file Type:Medicare Address: [address] MEDICARE SUPPLEMENT MEDICARE RAILROAD [facility] MEDICARE [place] [address] MEDICARE [facility] Member Subscriber Plan / Payer (Ef fective 2021-Present) Name:Alida Candelaria Member ID:[id number] Relation to Subscriber:Self Name:Alida Candelaria Subscriber ID:[id number] Payer ID:[id number] Group ID:Not on file Type:Medicare Address: [place] [id number] [facility] MEDICARE SUPPLEMENT Care Teams Cook Larder Relationship Specialty Start Date End Date July Estrella NP [address] [place] [address] PCP - General Nurse Practitioner 07/23/24 Additional Source Comments The information contained in this document represents components of the legal health record. It is not the complete legal health record.[facility]
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
--- OUTSIDE RECORDS SUMMARY | 2025-08-05 17:22 | XMS_ITS | Data Portability ---
Author Organization [facility], [facility] Address [address] [place] [address] Assessment No assessment recorded. Plan of Treatment Reminders Order Date Submit Date Provider Last Modified By Organization Details Last Modified Time Details Appointments None recorded. Lab urinalysis , dipstick 2022 023 [email or web address] _[facility], [address] [place] [address], [place], [address], 16:29:08 culture, urine 2022 023 [place] [facility], [address] [place] [address], [place], [address], 10:06:34 Referral None recorded. Procedures None recorded. Surgeries None recorded. Imaging None recorded. Medication Orders None recorded. Patient TargetsNo targets recorded. Patient Instructions Encounter Date Encounter Id Patient Instructions Last Modified By Organization Details Last Modified Time 10/15/2022 [id number] We recommend you get a repeat urinalysis [...] a visit to the nearest Emergency Department. [email or web address] Not available 10/15/2022 16:29:22 Reason for Referral None Reported. Results Created Date Observation Date Name Description Value Unit Range Abnormal Flag Note LastModifiedBy Organization Detail LastModifiedTime 10/15/1910/18/2022 URINE CULTU RE, ROUTI NE urine culture, routine FINAL REPORT abnormal Not Available [facility] ([facility]) [address] [facility] [address] [facility], [place], [address], 10/18/2022 12:06:27 10/15/19 23 10/18/2022 URINE CULTU [...] mL Not Available [facility] ([facility]) [address] [facility], [place], [address], 10/18/2022 12:06:27 10/15/19 23 10/18/2022 URINE CULTU [...] S Not Available [facility] ([facility]) [address] [facility], [place], [address], 10/18/2022 12:06:27 10/15/1910/15/2022 urina lysis , dipst ick Unknown Analyte Normal = light yellow Not Available [facility] [address], [place], [address], 10/15/2022 14:30:39 10/15/1910/15/2022 urina lysis , dipst ick Unknown Analyte Yellow Not Available tee [address], [place], [address], 10/15/2022 14:30:39 10/15/1910/15/2022 urina lysis , dipst ick Unknown Analyte Normal = clear Not Available [facility] [address], [place], [address], 10/15/2022 14:30:39 10/15/19 23 10/15/2022 urina lysis , dipst ick Unknown Analyte Cloudy Not Available tee [address], [place], [address], 10/15/2022 14:30:39 10/15/1910/15/2022 urina lysis , dipst ick Unknown Analyte Normal = negati ve Not Available linn [address], [place], [address], 10/15/2022 14:30:39 10/15/1910/15/2022 urina lysis , dipst ick Unknown Analyte Negati ve Not Available [facility] [address], [place], [address], 10/15/2022 14:30:39 10/15/19 23 10/15/2022 urina lysis , dipst ick Unknown Analyte Normal = Negati ve Not Available [facility] [address], [place], [address], 10/15/2022 14:30:39 10/15/1910/15/2022 urina lysis , dipst ick Unknown Analyte Negati ve Not Available [facility] [address], [place], [address], 10/15/2022 14:30:39 10/15/1910/15/2022 urina lysis , dipst ick Unknown Analyte Normal = Negati ve Not Available [facility] [address], [place], [address], 10/15/2022 14:30:39 10/15/1910/15/2022 urina lysis , dipst ick Unknown Analyte Negati ve Not Available [facility] [address], [place], [address], 10/15/2022 14:30:39 10/15/1910/15/2022 urina lysis , dipst ick Unknown Analyte Normal = 1.010, 1.015, 1.020 Not Available [facility] [address], [place], [address], 10/15/2022 14:30:39 10/15/1910/15/2022 urina lysis , dipst ick Unknown Analyte 1.020 Not Available [address], [place], [address], 10/15/2022 14:30:39 10/15/1910/15/2022 urina lysis , dipst ick Unknown Analyte Normal = Negati ve Not Available [facility] [address], [place], [place], [address], 10/15/2022 14:30:39 10/15/19 23 10/15/2022 urina lysis , dipst ick Unknown Analyte Large Not Available [facility] [address], [place], [address], 10/15/2022 14:30:39 10/15/19 23 10/15/2022 urina lysis , dipst ick Unknown Analyte Normal = 6.5, 7.0, 7.5, 8.0 Not Available [facility] [address], [place], [address], 10/15/2022 14:30:39 10/15/1910/15/2022 urina lysis , dipst ick Unknown Analyte 7.0 Not Available [address], [place], [address], 10/15/2022 14:30:39 10/15/19 23 10/15/2022 urina lysis , dipst ick Unknown Analyte Normal = Negati ve Not Available [facility] [address], [place], [address], 10/15/2022 14:30:39 10/15/19 23 10/15/2022 urina lysis , dipst ick Unknown Analyte 30 mg/dL Not Available [facility] [address], [place], [address], 10/15/2022 14:30:39 10/15/19 23 10/15/2022 urina lysis , dipst ick Unknown Analyte Normal = 0.2, 1.0 Not Available [facility] [address], [place], [address], 10/15/2022 14:30:39 10/15/19 23 10/15/2022 urina lysis , dipst ick Unknown Analyte 0.2 E.U./d L Not Available [facility] [address], [place], [address], 10/15/2022 14:30:39 10/15/1910/15/2022 urina lysis , dipst ick Unknown Analyte Normal = Negati ve Not Available [address] [address], [place], [address], 10/15/2022 14:30:39 10/15/1910/15/2022 urina lysis , dipst ick Unknown Analyte Negati ve Not Available [address] [address], [place], [address], 10/15/2022 14:30:39 10/15/1910/15/2022 urina lysis , dipst ick Unknown Analyte Normal = Negati ve Not Available [address] [facility] [address], [place], [address], 10/15/2022 14:30:39 10/15/1910/15/2022 urina lysis , dipst ick Unknown Analyte Modera te Not Available [address] [facility] [address], [place], [address], 10/15/2022 14:30:39 Result Notes None recorded. Problems Name Problem SNOMED Code Status Onset Date Resolution Date Notes Provider Name and Address Organization Details Recorded Time Gastroesophage al reflux disease 911839072 Active 2022 Missy [place] null, [place] - [facility] 14:34:47 Anxiety 41449532 Active 2022 Missy [place] null, [place] - [facility] 14:35:10 Depressive disorder 88572325 Active 2022 Missy Jae null, PA - [facility] 14:35:14 Notes:Restricitve airway dis ease Problem Notes None recorded. Procedures Surgical History Date Name Laterality Status Provider Name and Address Organization Details Recorded Time Appendectomy completed Missy [place] - [facility] 10/15/2022 14:35:32 cholecystostomy [...] Name and Address Organization Details Recorded Time 161792 Sudafed medicatio n insomnia Not available low 10/15/2022 46094 2 RxNorm Missy Jae null, PA - [facility] 14:31:58 854873 Lyrica medicatio n dizziness Not available high 10/15/2022 30309 1 RxNorm Missy Jae null, PA - [...] Heart rate Respiratory rate Body temperature Systolic And Diastolic Provider Name and Address Organization Details Last Updated DateTime 3 170.18 cm 32.9 kg/m2 16857.4 g 99 % 99 % 105 /min 20 /min 98.1 [degF] 155/83 mm[Hg] Missy [place] PA - [facility] 3 14:36:59 Social History Question Answer Notes LastModified by Organizat ion Details LastModified Time Tobacco Smoking Status Never Smoker Missy [place] null, [place] - [facility] 10/15/2022 14:35:22 [...] ICD10 Code Diagnosis IMO Codes Diagnosis Note [id number] [facility] [address] [place] [address] 08/13/2020 14:18:01 08/13/2020 15:37:22 [id number] [facility] [address] [place] [address] 08/13/2020 13:19:52 08/13/2020 15:34:27 [id number] [place] [address] [address] [place] [address] 10/15/2022 14:08:24 10/15/2022 16:32:00 Acute urinary tract infection 170038503 N39.0 Health Concerns Section Related Observation LastModified by Organization Detai ls LastModified Time None Recorded Concern Status LastModified by Organization Details LastModified Time None Recorded Advance Directives Directive None Recorded Payers Insurance Date Sequence Insurance Name Policy Number Policy Monahan Covered Member ID Monahan Member ID Guarantor Name 10/15/2022 [facility] (MEDICARE) Alida Candelaria [id number] Alida Candelaria 10/15/2022 1 MED[place] NATIONAL GOVERNMENT SERVICES Alida Candelaria [id number] Alida Candelaria 10/15/2022 1 [facility] (O) [id number] Shashank Candelaria [id number] Alida Candelaria 12/06/2022 2 AARP (MEDICARE SUPPLEMENT) Alida Candelaria [id number] Alida Candelaria Notes Date Note Type Note Provider Name and Address Organization Details Recorded Time 3 text/htm l Urinary Complaint FemaleReported by PatientUrinary problemsFor uti symptoms, patient reportsurgencyandurinary frequencybut reportsno blood in the urine,no pain during urination,no vaginal discharge,no pain in the flank,no fever/chills,no incontinence,no recurrent uti, andno known exposure to std. For source of patient information, patient reportsinformation obtained from patientandpatient arrived at urgent care ambulatory. For severity, patient reportsmoderate. For duration, patient reports2 days. Dipak Kathleen NP [address] [place], [address], [place] - [facility] 10/20/2022 09:59:41 OBGyn Episode No OBEpisode recorded.
--- OUTSIDE RECORDS SUMMARY | 2025-08-05 17:22 | XMS_ITS | Clinical Summary ---
Author Organization [facility] Address [address] [place] [address] Care Team Providers Care Hide Mill Man Name Role Phone Unavailable Primary Care Provider Unavailabl e Social History Tobacco Use Types Packs/Day Years Used Date Smoking Tobacco: Never Assessed Comments Unknown Sex and Gender Information Value Date Recorded Sex Assigned at Not on file Legal Sex Female 1:17 AM EDT Gender Identity Not on file Sexual Orientation Not on file Plan of Treatment Health Maintenance Due Date Last Done Comments Advance Care Planning 1955 Hepatitis C Virus Screening 1955 DTaP/Tdap/Td Vaccines (1 - Tdap) 11/29/1975 Mammogram 1996 Colonoscopy 2001 Pneumococcal Vaccines 50+ (1 of 1 - PCV) 2006 Zoster (Shingles) Vaccine (1 of 2) 2006 DXA Bone Density (Females,Ag es 65 and older) 2021 Influenza Vaccine 04/23/2025 COVID-19 Vaccine ( - 2023-2 5 season) 2025 RSV Vaccine 50 years and old er and Patients (1 - 1-dose 75+ series) 11/29/2031 Hepatitis B Vaccines Aged Out No long er eligible based on patient's age to complete this [place] [id number] [facility]
== END 2025-08-05 14:50 | disposition home or self-care (01) ==
LOC: HO.HOP 13:57
PROVIDERS: PCP Nurse Practitioner Family; Visit Provider Psychiatry & Neurology Psychiatry
DX: F42.9 Obsessive-compulsive disorder, unspecified (principal); F43.10 Post-traumatic stress disorder, unspecified
CPT/HCPCS: 90833; 99213

== ENCOUNTER → 2025-08-05 13:57 | Outpatient (BNVA) | payer MEDICARE, SELFPAY | PROVIDERS: PCP Nurse Practitioner Family; Visit Provider Psychiatry & Neurology Psychiatry | DX: F42.9 Obsessive-compulsive disorder, unspecified (principal); F43.10 Post-traumatic stress disorder, unspecified | CPT/HCPCS: 99212 ==

== ENCOUNTER → 2025-08-25 08:30 | Outpatient (BNV) | payer MEDICARE, SELFPAY | PROVIDERS: Visit Provider Psychiatry & Neurology Psychiatry | DX: F33.2 Major depressive disorder, recurrent severe without psychotic features (principal); F41.1 Generalized anxiety disorder; F42.9 Obsessive-compulsive disorder, unspecified; F43.10 Post-traumatic stress disorder, unspecified | CPT/HCPCS: 90792 ==

== ENCOUNTER 2025-08-26 08:30 | Outpatient (RCR) | payer MEDICARE, SELFPAY ==
[2025-08-24 11:47] VITALS: BP 112/76; PULSE 84; TEMP 36.7; BMI 33.2
--- NOTE | 2025-08-24 13:16 | PC.ADMIT ---
Patient is a 69 year old female who was referred to [facility] by her psychiatrist Dr. Williamson secondary to increased anxiety and depression sxs related to several stresses including recent loss of her therapist. According to Integrative Assessment patient reported her good friend unexpectedly and another friend moved to [place]. Patient is alert and oriented x4. She is calm and cooperative. She presented with depressed mood and anxious affect. She denied SI, no HI. She was given a copy of her safety plan if needed. She does report having AH sometimes of a voice calling her name or hearing sounds of a cat meow however she reports having cats in the home. Patient reports a history of AH years ago and would hear angry voices however reports what she is experiencing now is nothing like what she has experienced in the past. Denied any command hallucinations. Denied VH. She does not appear to be responding to internal stimuli, no irritability noted. Patient's medications updated with patient, patient's pharmacy, and medical record. Patient reports she is taking medications as prescribed.
--- NOTE | 2025-08-25 15:41 | HO.PHP ---
[facility] staff member met with Alida. Alida informed the clinician that she is feeling angry around her making the decision to rehome her friends cats who recently when she would like to keep them. Alida noted that she is feeling unheard and feels as though her lacks empathy. Alida did state that her is undiagnosed autism, in which she was provided psycho-education around that diagnosis. [facility] staff member explored with Alida if these weren't her friends cats who just , would she feel differently about the decision. Alida said she would and we discussed how the cats are something that she has left from her friend. PHP staff asked if she informed her how she feels around this. Alida said she has but she hasn't told him she is angry with his decision. [facility] staff member stated that if she talks to her about this again, to make sure to utilize I statement and was provided with verbal prompts. Alida was in agreement. [facility] staff member encouraged Alida at this time to work on accepting that the cats will be going to a new home and work on what she can control in the moment. Alida was in agreement. [facility] staff also suggested that she processes the loss of her friend and how that is impacting her. Alida was in agreement. Alida shared that she didn't find group members feedback to be helpful because some were suggesting that she divorce her and she doesn't want to do that. [facility] staff member encouraged Alida to set boundaries and if she doesn't like a suggestion she can vocalize that to the group as well so she is getting the support she needs. Alida was in agreement. Alida thanked the clinician for her time. Alida did not report any SI, plan or intent.
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
--- NOTE | 2025-08-26 15:02 | HO.PHP ---
Client's case was opened and reviewed in team.
== END 2025-08-26 23:59 | disposition admitted as inpatient to this hospital (09) ==
LOC: HO.PHPA 08:30
PROVIDERS: Visit Provider Psychiatry & Neurology Psychiatry
DX: F33.2 Major depressive disorder, recurrent severe without psychotic features (principal); F41.1 Generalized anxiety disorder; F42.9 Obsessive-compulsive disorder, unspecified; F43.10 Post-traumatic stress disorder, unspecified; Z62.810 Personal history of physical and sexual abuse in childhood; Z91.52 Personal history of nonsuicidal self-harm; Z79.899 Other long term (current) drug therapy
CPT/HCPCS: 90791; 90853

== ENCOUNTER 2025-08-26 19:44 | Inpatient (IN) | payer MEDICARE, SELFPAY ==
--- NOTE | 2025-08-26 | ECG_ITS ---
Test Reason : basline fo medication Blood Pressure : */* mmHG Vent. Rate : 85 BPM Atrial Rate : 85 BPM P-R Int : 190 ms QRS Dur : 90 ms QT Int : 388 ms P-R-T Axes : 54 5 55 degrees QTcB Int : 461 ms Normal sinus rhythm Nonspecific ST abnormality Abnormal ECG When compared with ECG of 21-Sep-2024 12:40, No significant change was found Referred By: Generic ED Physician Electronically Signed By: ANDREIA LIMON
[2025-08-26 19:48] VITALS: BP 145/70; PULSE 90; RESP 16; TEMP 36.3; O2SAT 98; BMI 32.9
--- NOTE | 2025-08-26 19:56 | ED.GENADULT ---
HPI - General Adult General Chief complaint: Psychiatric Symptoms Stated complaint: SI Time Seen by Provider: 08/26/25 20:10 Source: patient Limitations: no limitations History of Present Illness ED Provider: Gisela Mishra PA-C HPI narrative: 69-year-old female with a history of depression, PTSD, OCD, anxiety, restrictive lung disease, GERD, morbid obesity, fatty liver disease who presents with suicidal ideation. Patient reports out at triage that she ?feels ashamed for having suicidal thoughts?. She further indicated ?, if I had a big bottle of Ativan I would probably take it all?. Patient states that she has had increased psychosocial stressors since June. She currently is in a partial program. She reached out to her therapist today, they recommended that she come to the emergency department for crisis evaluation. Related Data Home Medications ?Medication ?Instructions ?Recorded ?Confirmed omeprazole 20 mg tablet,delayed 20 mg PO DAILY@0630 09/22/24 08/26/25 release l methyl folate 7.5 mg PO DAILY@0630 12/17/24 08/26/25 buspirone 10 mg tablet 10 mg PO BID 08/05/25 08/26/25 clonazepam 0.5 mg tablet 0.5 mg PO BEDTIME 08/24/25 08/26/25 Previous Rx's ?Medication ?Instructions ?Recorded aripiprazole 5 mg tablet (Abilify) 5 mg PO BEDTIME #90 tabs 03/05/25 pramipexole 0.125 mg tablet 0.125 mg PO TID 3 months #270 tabs 04/23/25 paroxetine HCl 40 mg tablet 40 mg PO BEDTIME #90 tabs 05/10/25 lorazepam 1 mg tablet 1 mg PO DAILY PRN Panic Attack(S) 06/17/25 #14 tabs clomipramine 25 mg capsule 75 mg (3 x 25 mg) PO BEDTIME #90 08/03/25 caps quetiapine 200 mg tablet 400 mg (2 x 200 mg) PO BEDTIME 90 08/11/25 days #180 tabs Allergies Allergy/AdvReac Type Severity Reaction Status Date / Time shellfish derived (SHELLFISH Allergy Severe DIFFICULTY Verified 08/26/25 19:53 DERIVED) BREATHING pseudoephedrine (From Allergy Intermediate AGITATION Verified 08/26/25 19:53 SUDAFED) pregabalin (From Lyrica) Allergy Dizziness Verified 08/26/25 19:53 Review of Systems Review of Systems: Yes all other systems are reviewed and are negative Constitutional: Constitutional: Denies fatigue and Denies fever(s) Cardiovascular: Cardiovascular: Denies chest pain and Denies dyspnea Respiratory: Respiratory: Denies dyspnea Gastrointestinal: Gastrointestinal: Denies abdominal pain Endocrine: Endocrine: Denies fatigue PMFSH Past Medical History Attestation statement: The following information was validated with the patient. Medical History (Updated 08/26/25 @ 22:22 by SHANT Recio) Fracture of wrist Major depression, recurrent, chronic Dyspnea Osteopenia History of hyperglycemia Fatty liver Hepatitis Small airways disease Chronic restrictive lung disease History of shingles History of COVID-19 Stress incontinence GERD (gastroesophageal reflux disease) IBS (irritable bowel syndrome) Surgical History History of adenoidectomy Hx of tonsillectomy History of appendectomy History of cholecystectomy Social History Social History Household Members: Spouse and Children Household Members Other:: Adult son Housing: House Do you presently have visiting nurse or other home services: No Alcohol intake: current Alcohol intake frequency: does not drink Comment: Pt has been extended at [facility] Patient Tobacco Use Status: Never used Tobacco Tobacco use type: Cigarette Smoked in Last 30 Days: No e-Cigarette/Vaping Use: Never Used Patient Interested in Nicotine Replacement: No Patient Given Instructions on How to Stop Smoking: No Second Hand Smoke Exposure: No Use of substances other than those prescribed or required for medical reasons: No Currently Displaying Signs/Symptoms of Drug Intoxication Withdrawal: No Have you been hit, kicked, punched, or otherwise hurt by someone within the past year? If so, by whom?: No Do you feel safe in your current relationship?: Yes Is there a partner from a previous relationship who is making you feel unsafe now?: No Are you made to feel afraid or neglected: No Spiritual Healthcare Practices: prayer and music zoroastrianism Jew Healthcare Practices: Zoroastrianism zoroastrianism Advance Directives: No Advance Directives Information Provided: No Do you have thoughts of harming others: None Do you have a plan to hurt others: No Plan Recently lost weight without trying: No Eating poorly because of decreased appetite: No Nutrition Risks: No Nutritional Risk Patient : No : No Poor oral hygiene: No service: No Sexual orientation: Straight/Heterosexual Physical Exam ED Vital Signs: Vital Signs - 24 hr 08/26/25 19:48 Temperature 97.4 F Pulse Rate 90 Respiratory Rate 16 Blood Pressure 145/70 H Pulse Oximetry 98 Oxygen Delivery Method Room Air BMI result Body Mass Index 32.9 Const Other: Alert Orientation/consciousness: patient oriented x3 Resp Effort & Inspection: normal respiratory effort Cardio Other: Normal peripheral perfusion Skin Other: Warm dry no rash Neuro General: patient oriented x3, gait normal, no focal motor deficits and CN's II-XI intact bilaterally Psych Other: Cooperative, flat affect Course Course Course Narrative: RmE: 69 year female presents to ED for suicidal ideation. Patient states having troubles at home. Labs care team consult placed Reevaluation(s) Reevaluation #1: Care team as assessed the patient, she will be inpatient psychiatric admission Time: 22:21 Medications Administered Generic Name Dose Route Start Last Admin Trade Name Freq PRN Reason Stop Dose Admin Aripiprazole 5 mg 08/27/25 21:00 08/26/25 23:38 Aripiprazole 5 Mg Tablet PO 5 mg BEDTIME HEATHER Administration Buspirone HCl 10 mg 08/27/25 09:00 08/27/25 09:08 Buspirone Hcl 10 Mg Tablet PO 10 mg BID HEATHER Administration Clomipramine HCl 75 mg 08/27/25 21:00 08/26/25 23:37 Clomipramine Hcl 25 Mg Capsule PO 75 mg BEDTIME HEATHER Administration Clonazepam 0.5 mg 08/27/25 21:00 08/26/25 23:38 Clonazepam 0.5 Mg Tablet PO 0.5 mg BEDTIME HEATHER Administration Omeprazole 20 mg 08/27/25 06:30 08/27/25 05:49 Omeprazole 20 Mg Capsule. PO 20 mg DAILY@0630 HEATHER Administration Pramipexole Dihydrochloride 0.125 mg 08/27/25 09:00 08/27/25 09:08 Pramipexole Di-Hcl 0.125 Mg Tablet PO 0.125 mg TID HEATHER Administration Quetiapine Fumarate 400 mg 08/27/25 21:00 08/26/25 23:38 Quetiapine Fumarate 400 Mg Tablet PO 400 mg BEDTIME HEATHER Administration Discontinued Medications Generic Name Dose Route Start Last Admin Trade Name Freq PRN Reason Stop Dose Admin Aripiprazole 2 mg 08/27/25 12:07 08/27/25 13:52 Aripiprazole 2 Mg Tablet PO 08/27/25 12:08 2 mg ONCE ONE Administration Lorazepam 1 mg 08/26/25 22:25 08/26/25 22:28 Lorazepam 1 Mg Tablet PO 08/26/25 22:26 1 mg ONCE ONE Administration Medical Decision Making Medical Decision Making MDM Narrative: 69-year-old female with a history of depression, PTSD, OCD, anxiety, restrictive lung disease, GERD, morbid obesity, fatty liver disease who presents with suicidal ideation. Patient reports out at triage that she ?feels ashamed for having suicidal thoughts?. She further indicated ?, if I had a big bottle of Ativan I would probably take it all?. Patient states that she has had increased psychosocial stressors since June. She currently is in a partial program. She reached out to her therapist today, they recommended that she come to the emergency department for crisis evaluation. Problem: Psychiatric illness History: Per patient I have considered the following differential diagnoses: SI, HI, decompensated psychiatric illness, drug/alcohol intoxication Plan: Screening labs including drug screen and ethanol obtained, the care team we will be assessing the patient, I foresee her being a likely bed search given her therapist sent her here for crisis evaluation I have independently reviewed the following tests: Labs: The leukocytosis, not anemic, no electrolyte abnormality, ethanol less than 10, drug screen negative Differential Diagnosis Differential Diagnoses: The differential diagnosis associated with the presentation includes See MDM Admission/Observation Consideration of admission/observation: Escalation of care including admission/observation considered Inpatient level of care Consult Healthcare Provider Management of the patient was discussed with: Behavioral Health Provider Care team Lab Data [facility] Lab Attestation statement: I reviewed the patient's lab results. 08/26/25 20:23 08/27/25 07:13 Labs: Lab Results 08/26/25 08/26/25 Range/Units 20:23 20:24 WBC 8.1 (4.8-10.8) X10*3/uL RBC 4.33 (4.20-5.50) X10*6/uL Hgb 13.0 (12.0-16.0) g/dl Hct 40.8 (37.0-47.0) % MCV 94.2 (80.0-98.0) fL MCH 30.0 (27.0-33.0) pg MCHC 31.9 (31.0-35.0) g/dl RDW 13.7 (11.0-16.0) % Plt Count 217 (160-400) X10*3/uL MPV 11.8 (9.4-12.3) fL Immature Gran % (Auto) 0.2 (0.0-0.4) % Neut % (Auto) 54.4 (45-73) % Lymph % (Auto) 30.6 (20-40) % Dade % (Auto) 9.1 (2-11) % Eos % (Auto) 4.8 H (0-4) % Baso % (Auto) 0.9 (0-2) % Lymph # (Auto) 2.5 (1.2-4.9) X10*3/uL Dade # (Auto) 0.7 (0.1-1.2) X10*3/uL Eos # (Auto) 0.4 (0.0-0.4) X10*3/uL Baso # (Auto) 0.1 (0.0-0.2) X10*3/uL Abs Immat Gran (auto) 0.02 (0.00-0.03) X10*3/uL Absolute Neuts (auto) 4.4 (2.0-8.3) x10*3/uL Absolute Nucleated RBC 0.000 (0.0-0.012) X10*3/uL Nucleated RBC % (auto) 0.0 (0.0-0.2) /100WBC Sodium 146 H (135-145) mmol/L Potassium 3.7 (3.3-5.1) mmol/L Chloride 107 (96-108) mmol/L Carbon Dioxide 32 H (22-29) mmol/L Anion Gap 11 L (12-20) BUN 14 (9-16) mg/dL Creatinine 0.95 (0.5-1.4) mg/dL Estim Creat Clear Calc 67.2 Estimated GFR 58 Random Glucose 85 (60-115) mg/dL Calcium 9.8 (8.4-10.2) mg/dL Total Bilirubin 0.2 (0.0-1.0) mg/dL AST 30 (5-31) U/L ALT 36 H (0-31) U/L Alkaline Phosphatase 104 (39-117) U/L Total Protein 7.1 (6.5-8.0) g/dL Albumin 4.4 (3.5-5.0) g/dL Urine Color Yellow Urine Appearance Clear Urine pH 7.0 (5.0-9.0) Ur Specific [place] 1.015 (1.005-1.025) Urine Protein Negative (Neg-Trace) mg/dL Urine Glucose (UA) Negative (Negative) mg/dL Urine Ketones Negative (Negative) mg/dL Urine Blood Negative (Negative) Urine Nitrite Negative (Negative) Ur Leukocyte Esterase Negative (Negative) Urine Opiates Screen Not Detected (Not Detect) Ur Buprenorphine Scrn Not Detected (Not Detect) ng/mL Ur Oxycodone Screen Not Detected (Not Detect) ng/mL Urine Methadone Screen Not Detected (Not Detect) ng/mL Urine Fentanyl Screen Not Detected (Not Detect) Ur Barbiturates Screen Not Detected (Not Detect) Ur Phencyclidine Scrn Not Detected (Not Detect) Ur Amphetamines Screen Not Detected (Not Detect) U Benzodiazepines Scrn Not Detected (Not Detect) Urine Cocaine Screen Not Detected (Not Detect) U Marijuana (THC) Screen Not Detected (Not Detect) Ethyl Alcohol < 10 mg/dL Discharge Plan Discharge Clinical Impression: Suicidal ideation Patient Disposition: Admitted As Inpatient Interventions: Admission Worksheet (ED) Last Done: 08/26/25 22:53 Discharge Date/Time: 08/26/25 22:55
[2025-08-26 20:39] LABS: MANUAL DIFF FLAG NO
[2025-08-26 20:46] LABS: Hematocrit 40.8 % (37.0-47.0); Hemoglobin 13.0 g/dl (12.0-16.0); Imm Gran Abs Auto 0.02 X10*3/uL (0.00-0.03); Imm Gran Pct Auto 0.2 % (0.0-0.4); Lymphocytes Absolute Auto 2.5 X10*3/uL (1.2-4.9); Mean Corpuscular HGB Conc 31.9 g/dl (31.0-35.0); Mean Corpuscular Hemoglobin 30.0 pg (27.0-33.0); Mean Corpuscular Volume 94.2 fL (80.0-98.0); NRBC Abs Auto 0.000 X10*3/uL (0.0-0.012); NRBC Pct Auto 0.0 /100WBC (0.0-0.2); Platelet Count 217 X10*3/uL (160-400); Red Blood Count 4.33 X10*6/uL (4.20-5.50); White Blood Count 8.1 X10*3/uL (4.8-10.8)
[2025-08-26 20:48] LABS: Appearance Urine Clear; Glucose Urine UA Negative (Negative); PH 7.0 (5.0-9.0); Specific Gravity - Urine 1.015 (1.005-1.025)
[2025-08-26 20:57] LABS: Alanine Aminotransferase 36 U/L (0-31); Albumin Level 4.4 g/dL (3.5-5.0); Alkaline Phosphatase 104 U/L (39-117); Anion Gap 11 (12-20); Aspartate Amino Transferase 30 U/L (5-31); Blood Urea Nitrogen 14 mg/dL (9-16); Calcium 9.8 mg/dL (8.4-10.2); Carbon Dioxide 32 mmol/L (22-29); Chloride 107 mmol/L (96-108); Creatinine Clr Calc Pharmacy 67.2; Estimated Glomerular Filt Rate 58; Potassium 3.7 mmol/L (3.3-5.1); Sodium 146 mmol/L (135-145); Total Protein 7.1 g/dL (6.5-8.0)
--- NOTE | 2025-08-26 22:25 | PC.NURSE ---
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
--- OUTSIDE RECORDS SUMMARY | 2025-08-26 22:27 | XMS_ITS | Clinical Summary ---
Author Organization [facility] Address [address] [place] [address] Care Team Providers Care Tractor Mechanic Name Role Phone Unavailable Primary Care Provider [...] older) 2021 Influenza Vaccine 04/23/2025 COVID-19 Vaccine (1 - 2024-2 6 season) 2025 RSV Vaccine 50 years and old er and Patients (1 - 1-dose 75+ series) 11/29/2031 Hepatitis B Vaccines Aged Out No long er eligible based on patient's age to complete this [place] [id number] [facility]
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
--- OUTSIDE RECORDS SUMMARY | 2025-08-26 22:27 | XMS_ITS | Clinical Summary ---
Author Organization [facility] Address [address] [place] [address] Phone Care Team Providers Care Metrology Engineer Name Role Phone July Estrella NP Primary Care Provider [phone] Social History Tobacco Use Types Packs/Day Years [...] Description 07/12/2026 1:00 PM EDT Office Visit [facility] Movement Disorders [address], [facility] [address] [place] [address] Pau Wray MD, PhD [address] [place] [address] [email or web address] Health Maintenance Due Date Last Done Comments [...] topic Medical [id number] MEDICARE RAILROAD [facility] MEDICARE SUPPLEMENT MEDICARE RAILROAD Member Subscriber Plan / Payer (Ef fective 2021-Present) Name:Alida Candelaria Member ID:[id number] Relation to Subscriber:Self Name:Alida Candelaria Subscriber ID:[id number] Payer ID:[id number] Group ID:Not on file Type:Medicare Address: [address] MEDICARE SUPPLEMENT MEDICARE RAILROAD [facility] MEDICARE SUPPLEMENT MEDICARE RAILROAD [facility] MEDICARE SUPPLEMENT MEDICARE RAILROAD [place] [address] MED[address]ARE [address] Member Subscriber Plan / Payer (Ef fective 2021-Present) Name:Alida Candelaria Member ID:[id number] Relation to Subscriber:Self Name:Alida Candelaria Subscriber ID:[id number] Payer ID:[id number] Group ID:Not on file Type:Medicare Address: [address] MEDICARE SUPPLEMENT Care Teams Metrology Engineer Relationship Specialty Start Date End Date July Estrella NP [address] [place] [address] PCP - General Nurse Practitioner 07/23/24 Additional Source Comments The information contained in this document represents components of the legal health record. It is not the complete legal health record.[facility]
--- OUTSIDE RECORDS SUMMARY | 2025-08-26 22:27 | XMS_ITS | Patient Health Record ---
[facility] Organization [facility] Address [address] [place] [address] Care Team Providers Care Prospecting Driller Name Role Phone Mirlande RODGERS, Tena Primary Care Provider Unatrey jimenez Quentin Giovana Unavailable [phone] Allergies Allergen (clinical drug ingredient) Drug/Non Drug [...] Insured Coverage Start Date Coverage End Date [facility] re-[id number] [address] [address] [place] [address] [id number] Alida Candelaria Self - patient is the insured [facility] re-[id number] [address] [address] [place] [address] [id number] Alida Candelaria Self - patient is the insured Medical (General) History Medical History History ICD Code Anxiety Depression Diverticulitis Psychiatric disorder Reflux ( GERD) Measles Chicken pox Surgical History Surgery Date(Month/Year) Tonselectomy 1963 Appendectomy 1969 Cholecystectomy 2016 Hospitalization History Reason Date(Month/Year) [facility]- Psychiatric/ suicidal thoughts 04/24 and 09/2018
--- OUTSIDE RECORDS SUMMARY | 2025-08-26 22:27 | XMS_ITS | Data Portability ---
Author Organization [facility] Javier [facility], [facility] Address [address] [place] [address] Assessment No assessment recorded. Plan of Treatment Reminders Order Date Submit Date Provider Last Modified By Organization Details Last Modified Time Details Appointments None recorded. Lab urinalysis , dipstick 2022 023 [email or web address] _[facility], [address] [place] [address], [place], [address], 16:29:08 culture, urine 2022 023 KIEL [facility], [address] [place] [address], [place], [address], 10:06:34 Referral None recorded. Procedures None recorded. Surgeries None recorded. Imaging None recorded. Medication Orders None recorded. Patient TargetsNo targets recorded. Patient Instructions Encounter Date Encounter Id Patient Instructions Last Modified By Organization Details Last Modified Time 10/15/2022 [id number] We recommend you get a repeat urinalysis [...] routine FINAL REPORT abnormal Not Available [facility] ([facility]) [address], [place], [address], 10/18/2022 12:06:27 10/15/19 23 10/18/2022 URINE CULTU [...] ng units per mL Not Available [facility] ([facility]) [address], [place], [address], 10/18/2022 12:06:27 10/15/19 23 10/18/2022 URINE CULTU [...] thopr im/Unger lfa S Not Available [facility] ([facility]) [address], [place], [address], 10/18/2022 12:06:27 10/15/1910/15/2022 urina lysis , dipst ick Unknown Analyte Normal = light yellow Not Available [facility] [address], [place], [address], 10/15/2022 14:30:39 10/15/1910/15/2022 urina lysis , dipst ick Unknown Analyte Yellow Not Available tee [address], [place], [address], 10/15/2022 14:30:39 10/15/1910/15/2022 urina lysis , dipst ick Unknown Analyte Normal = clear Not Available [facility] [address], [place], [address], 10/15/2022 14:30:39 10/15/19 23 10/15/2022 urina lysis , dipst ick Unknown Analyte Cloudy Not Available tee [address], [place], [address], 10/15/2022 14:30:39 10/15/1910/15/2022 urina lysis , dipst ick Unknown Analyte Normal = negati ve Not Available linn [address], [place], [address], 10/15/2022 14:30:39 10/15/1910/15/2022 urina lysis , dipst ick Unknown Analyte Negati ve Not Available [facility] [address], [place], [address], 10/15/2022 14:30:39 10/15/19 23 10/15/2022 urina lysis , dipst ick Unknown Analyte Normal = Negati ve Not Available [facility] [address], [place], [address], 10/15/2022 14:30:39 10/15/1910/15/2022 urina lysis , dipst ick Unknown Analyte Negati ve Not Available [facility] [address], [place], [address], 10/15/2022 14:30:39 10/15/1910/15/2022 urina lysis , dipst ick Unknown Analyte Normal = Negati ve Not Available [facility] [address], [place], [address], 10/15/2022 14:30:39 10/15/1910/15/2022 urina lysis , dipst ick Unknown Analyte Negati ve Not Available [facility] [address], [place], [address], 10/15/2022 14:30:39 10/15/1910/15/2022 urina lysis , dipst ick Unknown Analyte Normal = 1.010, 1.015, 1.020 Not Available [facility] [address], [place], [address], 10/15/2022 14:30:39 10/15/1910/15/2022 urina lysis , dipst ick Unknown Analyte 1.020 Not Available [address], [place], [address], 10/15/2022 14:30:39 10/15/1910/15/2022 urina lysis , dipst ick Unknown Analyte Normal = Negati ve Not Available [facility] [address], [place], [place], [address], 10/15/2022 14:30:39 10/15/19 23 10/15/2022 urina lysis , dipst ick Unknown Analyte Large Not Available [facility] [address], [place], [address], 10/15/2022 14:30:39 10/15/19 23 10/15/2022 urina lysis , dipst ick Unknown Analyte Normal = 6.5, 7.0, 7.5, 8.0 Not Available [facility] [address], [place], [address], 10/15/2022 14:30:39 10/15/1910/15/2022 urina lysis , dipst ick Unknown Analyte 7.0 Not Available [address], [place], [address], 10/15/2022 14:30:39 10/15/19 23 10/15/2022 urina lysis , dipst ick Unknown Analyte Normal = Negati ve Not Available [facility] [address], [place], [address], 10/15/2022 14:30:39 10/15/19 23 10/15/2022 urina lysis , dipst ick Unknown Analyte 30 mg/dL Not Available [facility] [address], [place], [address], 10/15/2022 14:30:39 10/15/19 23 10/15/2022 urina lysis , dipst ick Unknown Analyte Normal = 0.2, 1.0 Not Available [facility] [address], [place], [address], 10/15/2022 14:30:39 10/15/19 23 10/15/2022 urina lysis , dipst ick Unknown Analyte 0.2 E.U./d L Not Available [facility] [address], [place], [address], 10/15/2022 14:30:39 10/15/1910/15/2022 urina lysis , dipst ick Unknown Analyte Normal = Negati ve Not Available [address] [address], [place], [address], 10/15/2022 14:30:39 10/15/1910/15/2022 urina lysis , dipst ick Unknown Analyte Negati ve Not Available [address] [address], [place], [address], 10/15/2022 14:30:39 10/15/1910/15/2022 urina lysis , dipst ick Unknown Analyte Normal = Negati ve Not Available [address] [facility] [address], [place], [address], 10/15/2022 14:30:39 10/15/1910/15/2022 urina lysis , dipst ick Unknown Analyte Modera te Not Available [address], [place], [address], 10/15/2022 14:30:39 Result Notes None recorded. Problems Name Problem SNOMED Code Status Onset Date Resolution Date Notes Provider Name and Address Organization Details Recorded Time Gastroesophage al reflux disease 835860319 Active 2022 Missy [place] null, [place] - [facility] 14:34:47 Anxiety 20374551 Active 2022 Missy [place] null, [place] - [facility] 14:35:10 Depressive disorder 30282074 Active 2022 Missy [place] null, [place] - [facility] 14:35:14 Notes:Restricitve [...] Name and Address Organization Details Recorded Time 866820 Sudafed medicatio n insomnia Not available low 10/15/2022 27124 2 RxNorm Missy [place] null, [place] - [facility] 14:31:58 967609 Lyrica medicatio n dizziness Not available high 10/15/2022 54139 1 RxNorm Missy J[place] null, PA - [...] mass index (BMI) Body weight Oxygen saturation Heart rate Respiratory rate Body temperature Systolic And Diastolic Provider Name and Address Organization Details Last Updated DateTime 3 170.18 cm 32.9 kg/m2 92205.4 g 99 % 105 /min 20 /min 98.1 [degF] 155/83 mm[Hg] Missy [place] PA - [facility] 3 14:36:59 Social History Question Answer Notes LastModified by Organizat ion Details LastModified Time Tobacco Smoking Status Never Smoker Missy [place] null, [place] - [facility] 10/15/2022 14:35:22 [...] or 50 mcg/0.25mL dose 1 completed Missy [place] null, [place] - [facility] 10/15/2022 14:32:13 Influenza, split virus, trivalent, preservative 0 completed SHANT Carr - [facility] 10/15/2022 14:32:13 Past Encounters Encounter ID Performer Location Encounter Start Date Encounter Closed Date Diagnosis/Indication Diagnosis SNOMED-CT Code Diagnosis ICD10 Code Diagnosis IMO Codes Diagnosis Note [id number] [facility] [address] [address] [place] [address] 08/13/2020 14:18:01 08/13/2020 15:37:22 [id number] [facility] [address] [place] [address] 08/13/2020 13:19:52 08/13/2020 15:34:27 [id number] Dipak Kathleen [place] [address] [place] [address] 10/15/2022 14:08:24 10/15/2022 16:32:00 Acute urinary tract infection 073026736 N39.0 Health Concerns Section Related Observation LastModified by Organization Detai ls LastModified Time None Recorded Concern Status LastModified by Organization Details LastModified Time None Recorded Advance Directives Directive None Recorded Payers Insurance Date Sequence Insurance Name Policy Number Policy Monahan Covered Member ID Monahan Member ID Guarantor Name 10/15/2022 NINO [facility] - MEDICARE-[place] [address] [place] BOARD (MEDICARE) Alida Candelaria [id number] Alida Candelaria 10/15/2022 1 MEDICARE B-[place]: [employer] Alida Candelaria [id number] Alida Candelaria 10/15/2022 1 [facility] (O) [id number] Shashank Candelaria [id number] Alida Candelaria 12/06/2022 2 [employer] (MEDICARE SUPPLEMENT) Alida Candelaria [id number] Alida Candelaria Notes Date Note Type Note [...] Kathleen NP [address] [place], [address], [place] - [facility] 10/20/2022 09:59:41 OBGyn Episode No OBEpisode recorded.
--- NOTE | 2025-08-26 22:30 | PC.NURSE ---
medicated per mar.
[2025-08-26 23:07] VITALS: BP 109/69; PULSE 89; RESP 16; TEMP 36.2; O2SAT 98; BMI 33.1
[2025-08-27 00:07] LABS: Cannabinoid Screen Urine Not Detected (Not Detect)
--- NOTE | 2025-08-27 00:29 | PC.NURSE ---
Admission Note Alida Candelaria, a 69-year-old woman, who self-presented to [facility] with chief complaint of suicidal ideation with plan to O on Ativan triggered by psychosocial stressor since June 2025. Alida is currently in a partial hospitalization program. She lives with her and son. The patient has a past medical history of restrictive lung disease, GERD, morbid obesity, Hepatitis, IBS, and fatty liver disease. The patient has a psychiatric history of? Major Depressive Disorder, PTSD, and OCD. Alida arrived here on S #1 on a wheelchair at 2305 on 08/26/25, CV, with an admitting diagnosis of? Major Depressive Disorder. Full code status. She is alert and oriented x 4. Behavior is calm, quiet, and pleasant. Compliant with the admission process. Thought content straightforward, Thought process linear. Endorses anxiety 7/10, Depression 8/10. Denied SI/HI/AVH, reported she feels safe here and contracted for the safety. Skin was assessed and found intact with no issues. Alida ambulates independently. Independent of care: Med-reconciliation completed/approved / MAR active. Alida takes her meds whole with apple sauce. She is continent with bowel and bladder but has stress incontinence. VSS. Labs are unremarkable; UA negative, UTOX negative, EKG abnormal due to nonspecific ST abnormality. Alida was able to sign release papers, an belongings list, a safety tool, and a treatment plan. Contraband was searched, nothing was found, and she was placed on a 5-minute safety check.
[2025-08-27 08:00] VITALS: BP 118/72; PULSE 78; TEMP 36.3; O2SAT 95
[2025-08-27 08:24] LABS: Alanine Aminotransferase 31 U/L (0-31); Albumin Level 3.9 g/dL (3.5-5.0); Alkaline Phosphatase 92 U/L (39-117); Anion Gap 12 (12-20); Aspartate Amino Transferase 28 U/L (5-31); Blood Urea Nitrogen 15 mg/dL (9-16); Calcium 9.8 mg/dL (8.4-10.2); Carbon Dioxide 28 mmol/L (22-29); Chloride 108 mmol/L (96-108); Cholesterol 185 mg/dL (<200); Creatinine Clr Calc Pharmacy 72.8; Estimated Glomerular Filt Rate > 60; HDL Cholesterol 50 mg/dL (>40); Magnesium 2.2 mg/dL (1.6-2.6); Potassium 3.8 mmol/L (3.3-5.1); Sodium 144 mmol/L (135-145); Total Protein 6.6 g/dL (6.5-8.0); Triglycerides 103 mg/dL (<150)
[2025-08-27 08:30] LABS: Free T4 (Free Thyroxine) 0.75 ng/dL (0.71-1.85); Thyroid Stimulating Hormone 4.36 uIU/mL (0.32-4.0)
[2025-08-27 08:38] LABS: Folate 15.2 ng/mL (> or = 4.0); Vitamin B12 349 pg/mL (200-900)
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
--- NOTE | 2025-08-27 15:16 | HO.PM.IMCN ---
History of Present Illness Data of Consult Service Date: 08/27/25 Primary Care Provider: July Estrella NP HPI Reason for consult: Medical consult 69-year-old female with a past medical history of depression, JOSE, PTSD, OCD, anxiety, restrictive lung disease, GERD, morbid obesity, and hepatic steatosis presented to the ED with suicidal ideation. Patient tells me that she recently lost a friend in June and wanted to take care of her friends two cats but her will not allow her to which is causing her increased stress. In the ED her lab work revealed no leukocytosis, no anemia, no electrolyte imbalances, negative tox screen and alcohol less than 10. On exam she has no medical concerns. On exam her labs and vital signs were stable. Review of Systems Review of Systems: Denies any shortness of breath, chest pain, headaches, dysuria, abdominal pain or discomfort, nausea, vomiting or diarrhea. Denies fever or chills. [facility] Medical History (Updated 08/26/25 @ 22:22 by SHANT Recio) Fracture of wrist Major depression, recurrent, chronic Dyspnea Osteopenia History of hyperglycemia Fatty liver Hepatitis Small airways disease Chronic restrictive lung disease History of shingles History of COVID-19 Stress incontinence GERD (gastroesophageal reflux disease) IBS (irritable bowel syndrome) Surgical History History of adenoidectomy Hx of tonsillectomy History of appendectomy History of cholecystectomy Social History Household Members: Spouse and Children Household Members Other:: Adult son Housing: House Do you presently have visiting nurse or other home services: No Alcohol intake: current Alcohol intake frequency: does not drink Comment: Pt has been extended at [facility] Patient Tobacco Use Status: Never used Tobacco Tobacco use type: Cigarette Smoked in Last 30 Days: No e-Cigarette/Vaping Use: Never Used Patient Interested in Nicotine Replacement: No Patient Given Instructions on How to Stop Smoking: No Second Hand Smoke Exposure: No Use of substances other than those prescribed or required for medical reasons: No Currently Displaying Signs/Symptoms of Drug Intoxication Withdrawal: No Have you been hit, kicked, punched, or otherwise hurt by someone within the past year? If so, by whom?: No Do you feel safe in your current relationship?: Yes Is there a partner from a previous relationship who is making you feel unsafe now?: No Are you made to feel afraid or neglected: No Spiritual Healthcare Practices: prayer and music taoist Rastafarian Healthcare Practices: Restoration taoist Advance Directives: No Advance Directives Information Provided: No Do you have thoughts of harming others: None Do you have a plan to hurt others: No Plan Recently lost weight without trying: No Eating poorly because of decreased appetite: No Nutrition Risks: No Nutritional Risk Patient : No : No Poor oral hygiene: No service: No Sexual orientation: Straight/Heterosexual Meds Allergies Allergy/AdvReac Type Severity Reaction Status Date / Time shellfish derived (SHELLFISH Allergy Severe DIFFICULTY Verified 08/26/25 19:53 DERIVED) BREATHING pseudoephedrine (From Allergy Intermediate AGITATION Verified 08/26/25 19:53 SUDAFED) pregabalin (From Lyrica) Allergy Dizziness Verified 08/26/25 19:53 Active Medications: Current Medications Acetaminophen (Acetaminophen 325 Mg Tablet) 650 mg PO Q6H PRN PRN Reason: Headache/Pain, Scale 1-10 Al Hydroxide/Mg Hydroxide (Magnesium Hydrox/Alum Hydrox 30 Ml Oral.Susp) 30 ml PO Q6H PRN PRN Reason: Heartburn/Nausea Aripiprazole (Aripiprazole 5 Mg Tablet) 5 mg PO BEDTIME [facility] Last Admin: 08/26/25 23:38 Dose: 5 mg Buspirone HCl (Buspirone Hcl 10 Mg Tablet) 10 mg PO BID [facility] Last Admin: 08/27/25 09:08 Dose: 10 mg Clomipramine HCl (Clomipramine Hcl 25 Mg Capsule) 75 mg PO BEDTIME [facility] Last Admin: 08/26/25 23:37 Dose: 75 mg Clonazepam (Clonazepam 0.5 Mg Tablet) 0.5 mg PO BEDTIME [facility] Last Admin: 08/26/25 23:38 Dose: 0.5 mg Hydroxyzine HCl (Hydroxyzine Hcl 25 Mg Tablet) 25 mg PO Q6H PRN PRN Reason: mild anxiety Magnesium Hydroxide (Milk Of Magnesia 30 Ml Oral.Susp) 30 ml PO DAILY PRN PRN Reason: Constipation Nicotine (Nicotine 21 Mg Patch.Td24) 21 mg TRANSDERMA DAILY PRN PRN Reason: nicotine craving Nicotine Polacrilex (Nicotine Polacrilex 2 Mg Gum) 2 mg BUCCAL Q2H PRN PRN Reason: Nicotine Cravings Omeprazole (Omeprazole 20 Mg Capsule.Dr) 20 mg PO DAILY@06 [facility] Last Admin: 08/27/25 05:49 Dose: 20 mg Paroxetine HCl (Paroxetine Hcl 40 Mg Tablet) 40 mg PO BEDTIME [facility] Pramipexole Dihydrochloride (Pramipexole Di-Hcl 0.125 Mg Tablet) 0.125 mg PO TID [facility] Last Admin: 08/27/25 09:08 Dose: 0.125 mg Quetiapine Fumarate (Quetiapine Fumarate 400 Mg Tablet) 400 mg PO BEDTIME [facility] Last Admin: 08/26/25 23:38 Dose: 400 mg Trazodone HCl (Trazodone Hcl 50 Mg Tablet) 50 mg PO BEDTIME MRX1 PRN PRN Reason: Insomnia Home Medications ?Medication ?Instructions ?Recorded ?Confirmed ?Last Taken ?Type omeprazole 20 mg tablet,delayed 20 mg PO DAILY@0630 09/22/24 08/26/25 10/28/24 History release l methyl folate 7.5 mg PO DAILY@0630 12/17/24 08/26/25 Unknown History buspirone 10 mg tablet 10 mg PO BID 08/05/25 08/26/25 Unknown History clonazepam 0.5 mg tablet 0.5 mg PO BEDTIME 08/24/25 08/26/25 Unknown History Physical Exam Vital Signs and Narrative: Vital Signs: Last Vital Signs Temp 97.3 F 08/27/25 08:00 Pulse 78 08/27/25 08:00 Resp 16 08/26/25 23:07 BP 118/72 08/27/25 08:00 Pulse Ox 95 08/27/25 08:00 O2 Del Method Room Air 08/27/25 08:00 BMI result Body Mass Index 33.1 Alert and oriented X3, calm and cooperative. Answers questions. Neuro: CN II-X11 intact, no deficits, visual acuity intact EYES: PERRLA, EOM intact ENT: Hearing intact, MMM Cardiac: S1 S2 RRR, No ectopy Pulmonary: lungs clear to auscultation, No increased WOB. Abdominal: BS active in all 4 quadrants, no guarding or tenderness MSK: Strength 5/5 upper and lower extremities. Ambulating with a steady gait. : Deferred Extremities: No edema in lower extremities Psych: Mood stable, Quiet and cooperative. Skin: Warm and dry, Intact Results Labs 08/26/25 20:23 08/27/25 07:13 Labs: Laboratory Results - last 24 hr 08/26/25 08/26/25 08/27/25 20:23 20:24 07:13 MCV 94.2 MCH 30.0 MCHC 31.9 RDW 13.7 Plt Count 217 MPV 11.8 Immature Gran % (Auto) 0.2 Neut % (Auto) 54.4 Lymph % (Auto) 30.6 [place] % (Auto) 9.1 Eos % (Auto) 4.8 H Baso % (Auto) 0.9 Lymph # (Auto) 2.5 [place] # (Auto) 0.7 Eos # (Auto) 0.4 Baso # (Auto) 0.1 Abs Immat Gran (auto) 0.02 Absolute Neuts (auto) 4.4 Absolute Nucleated RBC 0.000 Nucleated RBC % (auto) 0.0 Anion Gap 11 L 12 Estim Creat Clear Calc 67.2 72.8 Estimated GFR 58 > 60 Random Glucose 85 104 Estimat Average Glucose 114 Hemoglobin A1c % 5.6 Calcium 9.8 9.8 Magnesium 2.2 Total Bilirubin 0.2 0.4 Direct Bilirubin 0.1 AST 30 28 ALT 36 H 31 Alkaline Phosphatase 104 92 Total Protein 7.1 6.6 Albumin 4.4 3.9 Triglycerides 103 Cholesterol 185 LDL Cholesterol, Calc 115 H HDL Cholesterol 50 Vitamin B12 349 Folate 15.2 TSH 4.36 H Free T4 0.75 Urine Color Yellow Urine Appearance Clear Urine pH 7.0 Ur Specific [place] 1.015 Urine Protein Negative Urine Glucose (UA) Negative Urine Ketones Negative Urine Blood Negative Urine Nitrite Negative Ur Leukocyte Esterase Negative Urine Opiates Screen Not Detected Ur Buprenorphine Scrn Not Detected Ur Oxycodone Screen Not Detected Urine Methadone Screen Not Detected Urine Fentanyl Screen Not Detected Ur Barbiturates Screen Not Detected Ur Phencyclidine Scrn Not Detected Ur Amphetamines Screen Not Detected U Benzodiazepines Scrn Not Detected Urine Cocaine Screen Not Detected U Marijuana (THC) Screen Not Detected Ethyl Alcohol < 10 Assessment and Plan (1) GERD (gastroesophageal reflux disease): Qualifiers: Esophagitis presence: without esophagitis Qualified Code(s): K21.9 - Gastro-esophageal reflux disease without esophagitis Status: Acute Plan 61-year-old female with past medical history as listed below presented to the emergency department with suicidal ideation. Now admitted to inpatient geriatric psych for further stabilization. GERD/depression/PTSD/OCD/SI Treatment per psychiatric team GERD Continue omeprazole Thank you for allowing me to participate in the care of this patient. Will follow with you, please notify medical provider with any changes in condition or concerns.
[2025-08-27 20:00] VITALS: BP 164/81; PULSE 80; RESP 16; TEMP 36.3; O2SAT 97
[2025-08-27] MEDS: PARoxetine HCL 40 MG TABLET PO (20:23)
[2025-08-28 08:00] VITALS: BP 137/65; PULSE 80; RESP 16; TEMP 36.1; O2SAT 95
--- NOTE | 2025-08-28 10:07 | P.PNPSI_ITS ---
Subjective Subjective Date of Service: 08/28/25 Reason For Visit: SI Interim History: Reviewed with team. Reviewed plan of care. Pt reports she feels improved. She denies SI,HI,AH,VH. She asks if she can go out on the deck in the snow. Team are arranging this for her. Reports depressive sx /, but I feel better . Social and visable on the unit. Imodium for IBS sx ordered Medication Compliance: Yes Side effects from medications: No Review of Systems Acute medical concerns: No Medical Review of Systems: unchanged Review of Systems Review of Systems IBS sx Mental Status Exam Mental Status Exam Patient Appearance: Appropriate Patient Orientation: Person, Place, Time and Situation Level of Consciousness: Alert Patient Behavior: Talkative and Good Eye Contact Mood Description: Constricted Affect Description: Constricted Ability to Follow Directions: Good Speech Pattern: Spontaneous Speech Hallucinations: None Delusions: Not Present Thought Process: Intact Thought Content: positive for Intact and positive for Suicidal Ideation (denies) Judgement: Fair Diagnostics Vital Signs (24Hr): Vital Signs - 24 hr 08/27/25 20:00 08/28/25 08:00 Temperature 97.4 F 97.0 F Pulse Rate 80 80 Respiratory Rate 16 16 Blood Pressure 164/81 H 137/65 Pulse Oximetry 97 95 Oxygen Delivery Method Room Air Room Air BMI result Body Mass Index 33.1 Labs 08/26/25 20:23 08/27/25 07:13 Labs: Laboratory Results - last 48 hr 08/26/25 08/26/25 08/27/25 20:23 20:24 07:13 WBC 8.1 RBC 4.33 Hgb 13.0 Hct 40.8 MCV 94.2 MCH 30.0 MCHC 31.9 RDW 13.7 Plt Count 217 MPV 11.8 Immature Gran % (Auto) 0.2 Neut % (Auto) 54.4 Lymph % (Auto) 30.6 [place] % (Auto) 9.1 Eos % (Auto) 4.8 H Baso % (Auto) 0.9 Lymph # (Auto) 2.5 [place] # (Auto) 0.7 Eos # (Auto) 0.4 Baso # (Auto) 0.1 Abs Immat Gran (auto) 0.02 Absolute Neuts (auto) 4.4 Absolute Nucleated RBC 0.000 Nucleated RBC % (auto) 0.0 Sodium 146 H 144 Potassium 3.7 3.8 Chloride 107 108 Carbon Dioxide 32 H 28 Anion Gap 11 L 12 BUN 14 15 Creatinine 0.95 0.88 Estim Creat Clear Calc 67.2 72.8 Estimated GFR 58 > 60 Random Glucose 85 104 Estimat Average Glucose 114 Hemoglobin A1c % 5.6 Calcium 9.8 9.8 Magnesium 2.2 Total Bilirubin 0.2 0.4 Direct Bilirubin 0.1 AST 30 28 ALT 36 H 31 Alkaline Phosphatase 104 92 Total Protein 7.1 6.6 Albumin 4.4 3.9 Triglycerides 103 Cholesterol 185 LDL Cholesterol, Calc 115 H HDL Cholesterol 50 Vitamin B12 349 Folate 15.2 TSH 4.36 H Free T4 0.75 Urine Color Yellow Urine Appearance Clear Urine pH 7.0 Ur Specific Mcdonald 1.015 Urine Protein Negative Urine Glucose (UA) Negative Urine Ketones Negative Urine Blood Negative Urine Nitrite Negative Ur Leukocyte Esterase Negative Urine Opiates Screen Not Detected Ur Buprenorphine Scrn Not Detected Ur Oxycodone Screen Not Detected Urine Methadone Screen Not Detected Urine Fentanyl Screen Not Detected Ur Barbiturates Screen Not Detected Ur Phencyclidine Scrn Not Detected Ur Amphetamines Screen Not Detected U Benzodiazepines Scrn Not Detected Urine Cocaine Screen Not Detected U Marijuana (THC) Screen Not Detected Ethyl Alcohol < 10 Medications Medications Current Medications Acetaminophen (Acetaminophen 325 Mg Tablet) 650 mg PO Q6H PRN PRN Reason: Headache/Pain, Scale 1-10 Al Hydroxide/Mg Hydroxide (Magnesium Hydrox/Alum Hydrox 30 Ml Oral.Susp) 30 ml PO Q6H PRN PRN Reason: Heartburn/Nausea Aripiprazole (Aripiprazole 5 Mg Tablet) 5 mg PO BEDTIME [facility] Last Admin: 08/27/25 20:23 Dose: 5 mg Aripiprazole (Aripiprazole 2 Mg Tablet) 2.5 mg PO DAILY [facility] Last Admin: 08/28/25 08:47 Dose: 2.5 mg Buspirone HCl (Buspirone Hcl 10 Mg Tablet) 10 mg PO BID [facility] Last Admin: 08/28/25 08:48 Dose: 10 mg Clomipramine HCl (Clomipramine Hcl 25 Mg Capsule) 75 mg PO BEDTIME [facility] Last Admin: 08/27/25 20:23 Dose: 75 mg Clonazepam (Clonazepam 0.5 Mg Tablet) 0.5 mg PO BEDTIME [facility] Last Admin: 08/27/25 20:24 Dose: 0.5 mg Hydroxyzine HCl (Hydroxyzine Hcl 25 Mg Tablet) 25 mg PO Q6H PRN PRN Reason: mild anxiety Magnesium Hydroxide (Milk Of Magnesia 30 Ml Oral.Susp) 30 ml PO DAILY PRN PRN Reason: Constipation Nicotine (Nicotine 21 Mg Patch.Td24) 21 mg TRANSDERMA DAILY PRN PRN Reason: nicotine craving Nicotine Polacrilex (Nicotine Polacrilex 2 Mg Gum) 2 mg BUCCAL Q2H PRN PRN Reason: Nicotine Cravings Pt Own (Lmethyl Folate 7.5 Mg Capsules) 15 mg PO DAILY [facility] Last Admin: 08/28/25 08:47 Dose: 15 mg Omeprazole (Omeprazole 20 Mg Capsule.Dr) 20 mg PO DAILY@30 [facility] Last Admin: 08/28/25 06:29 Dose: 20 mg Paroxetine HCl (Paroxetine Hcl 40 Mg Tablet) 40 mg PO BEDTIME [facility] Last Admin: 08/27/25 20:23 Dose: 40 mg Pramipexole Dihydrochloride (Pramipexole Di-Hcl 0.125 Mg Tablet) 0.125 mg PO TID [facility] Last Admin: 08/28/25 08:47 Dose: 0.125 mg Quetiapine Fumarate (Quetiapine Fumarate 400 Mg Tablet) 400 mg PO BEDTIME [facility] Last Admin: 08/27/25 20:23 Dose: 400 mg Trazodone HCl (Trazodone Hcl 50 Mg Tablet) 50 mg PO BEDTIME MRX1 PRN PRN Reason: Insomnia Allergies Allergies Allergy/AdvReac Type Severity Reaction Status Date / Time shellfish derived (SHELLFISH Allergy Severe DIFFICULTY Verified 08/26/25 19:53 DERIVED) BREATHING pseudoephedrine (From Allergy Intermediate AGITATION Verified 08/26/25 19:53 SUDAFED) pregabalin (From Lyrica) Allergy Dizziness Verified 08/26/25 19:53 Assessment & Plan Assessment & Plan (1) Depression, major, severe recurrence: Status: Resolved Code(s): F33.2 - Major depressive disorder, recurrent severe without psychotic features (2) OCD (obsessive compulsive disorder): Status: Acute Code(s): F42.9 - Obsessive-compulsive disorder, unspecified (3) PTSD (post-traumatic stress disorder): Status: Acute Code(s): F43.10 - Post-traumatic stress disorder, unspecified (4) Suicidal ideation: Status: Acute Code(s): R45.851 - Suicidal ideations Plan Admit to Geriatric unit a conditional voluntary. Patient with history of psych depression vague auditory hallucinations no commands increase Abilify to 7.5 mg she does have rapid tremor we have tried tapering Seroquel past and tried tapering Abilify both of which led to significant depression and relapse symptoms. Consider TMS after discharge. Patient had significant what appears to be unprofessional conduct by her therapist recently who who shame the patient on necessarily for what happened during psychotherapy. Patient needs help in getting distance from this and recovering from this times appears to understand that therapist had been quite unprofessional in doing this but it is a loss she had felt that they doing good work in helping her be more assertive with her who appears to have a great deal of difficulty tolerating emotional states in the patient understanding and accepting them. Patient does understand that she can change her but can change how she responds to him. In this vulnerable state again felt quite rejected and abandoned when he insisted on getting rid of the cats that more major connection to her friend who was suddenly . Labs unremarkable step-down back to the [facility] as possible. Psychoeducation prevention with the patient's as possible. Continue Anafranil Paxil Seroquel and Abilify monitor safety monitor psychosis before impulsive suicidality. Estimated length of stay 1 week ER medical eval reviewed 08/28/25: Reviewed with team. Reviewed plan of care. Pt reports she feels improved. She denies SI,HI,AH,VH. She asks if she can go out on the deck in the snow. Team are arranging this for her. Reports depressive sx 01/30, but I feel better . Social and visable on the unit. Imodium for IBS sx ordered Reason for continued inpatient stay Substantial Risk for: rapid decompensation Time Spent With Patient Time: Total time managing care of this patient today ____ minutes.
[2025-08-28 20:00] VITALS: BP 108/54; PULSE 50; RESP 16; TEMP 36; O2SAT 95
[2025-08-28] MEDS: PARoxetine HCL 40 MG TABLET PO (20:05)
--- NOTE | 2025-08-29 05:42 | HO.PSYCHPN ---
Subjective Subjective Date of Service: 08/29/25 Reason For Visit: SI Interim History: Team reports pt is doing better. She is talking of the loss and her sadness that her friends cats were given away. She is social and interactive. This am. she is in group and she appears engaged and interactive when observed. This afternoon, pt tells team she is quite anxious. Klonopin 0.5 mg x 1 prn ordered. Medication Compliance: Yes Side effects from medications: No Attending Groups: Yes Review of Systems Acute medical concerns: No Medical Review of Systems: unchanged Review of Systems Review of Systems Denies Mental Status Exam Mental Status Exam Patient Appearance: Appropriate Patient Orientation: Person, Place, Time and Situation Level of Consciousness: Alert Patient Behavior: Talkative and Good Eye Contact Mood Description: Constricted Affect Description: Constricted Ability to Follow Directions: Good Speech Pattern: Spontaneous Speech Hallucinations: None Delusions: Not Present Thought Process: Intact Thought Content: positive for Intact and positive for Suicidal Ideation (denies) Judgement: Fair Diagnostics Vital Signs (24Hr): Vital Signs - 24 hr 08/28/25 08:00 08/28/25 20:00 Temperature 97.0 F 96.8 F Pulse Rate 80 50 Respiratory Rate 16 16 Blood Pressure 137/65 108/54 L Pulse Oximetry 95 95 Oxygen Delivery Method Room Air Room Air BMI result Body Mass Index 33.1 Labs 08/26/25 20:23 08/27/25 07:13 Labs: Laboratory Results - last 48 hr 08/27/25 07:13 Sodium 144 Potassium 3.8 Chloride 108 Carbon Dioxide 28 Anion Gap 12 BUN 15 Creatinine 0.88 Estim Creat Clear Calc 72.8 Estimated GFR > 60 Random Glucose 104 Estimat Average Glucose 114 Hemoglobin A1c % 5.6 Calcium 9.8 Magnesium 2.2 Total Bilirubin 0.4 Direct Bilirubin 0.1 AST 28 ALT 31 Alkaline Phosphatase 92 Total Protein 6.6 Albumin 3.9 Triglycerides 103 Cholesterol 185 LDL Cholesterol, Calc 115 H HDL Cholesterol 50 Vitamin B12 349 Folate 15.2 TSH 4.36 H Free T4 0.75 Medications Medications Current Medications Acetaminophen (Acetaminophen 325 Mg Tablet) 650 mg PO Q6H PRN PRN Reason: Headache/Pain, Scale 1-10 Al Hydroxide/Mg Hydroxide (Magnesium Hydrox/Alum Hydrox 30 Ml Oral.Susp) 30 ml PO Q6H PRN PRN Reason: Heartburn/Nausea Aripiprazole (Aripiprazole 5 Mg Tablet) 5 mg PO BEDTIME [facility] Last Admin: 08/28/25 20:05 Dose: 5 mg Aripiprazole (Aripiprazole 2 Mg Tablet) 2.5 mg PO DAILY [facility] Last Admin: 08/28/25 08:47 Dose: 2.5 mg Buspirone HCl (Buspirone Hcl 10 Mg Tablet) 10 mg PO BID [facility] Last Admin: 08/28/25 20:04 Dose: 10 mg Clomipramine HCl (Clomipramine Hcl 25 Mg Capsule) 75 mg PO BEDTIME [facility] Last Admin: 08/28/25 20:05 Dose: 75 mg Clonazepam (Clonazepam 0.5 Mg Tablet) 0.5 mg PO BEDTIME [facility] Last Admin: 08/28/25 20:05 Dose: 0.5 mg Hydroxyzine HCl (Hydroxyzine Hcl 25 Mg Tablet) 25 mg PO Q6H PRN PRN Reason: mild anxiety Last Admin: 08/28/25 12:22 Dose: 25 mg Loperamide HCl (Loperamide Hcl 2 Mg Capsule) 4 mg PO Q6H PRN PRN Reason: ibs sx Magnesium Hydroxide (Milk Of Magnesia 30 Ml Oral.Susp) 30 ml PO DAILY PRN PRN Reason: Constipation Nicotine (Nicotine 21 Mg Patch.Td24) 21 mg TRANSDERMA DAILY PRN PRN Reason: nicotine craving Nicotine Polacrilex (Nicotine Polacrilex 2 Mg Gum) 2 mg BUCCAL Q2H PRN PRN Reason: Nicotine Cravings Pt Own (Lmethyl Folate 7.5 Mg Capsules) 15 mg PO DAILY [facility] Last Admin: 08/28/25 08:47 Dose: 15 mg Omeprazole (Omeprazole 20 Mg Capsule.Dr) 20 mg PO DAILY@0630 [facility] Last Admin: 08/28/25 06:29 Dose: 20 mg Paroxetine HCl (Paroxetine Hcl 40 Mg Tablet) 40 mg PO BEDTIME [facility] Last Admin: 08/28/25 20:05 Dose: 40 mg Pramipexole Dihydrochloride (Pramipexole Di-Hcl 0.125 Mg Tablet) 0.125 mg PO TID [facility] Last Admin: 08/28/25 20:05 Dose: 0.125 mg Quetiapine Fumarate (Quetiapine Fumarate 400 Mg Tablet) 400 mg PO BEDTIME [facility] Last Admin: 08/28/25 20:04 Dose: 400 mg Trazodone HCl (Trazodone Hcl 50 Mg Tablet) 50 mg PO BEDTIME MRX1 PRN PRN Reason: Insomnia Allergies Allergies Allergy/AdvReac Type Severity Reaction Status Date / Time shellfish derived (SHELLFISH Allergy Severe DIFFICULTY Verified 08/26/25 19:53 DERIVED) BREATHING pseudoephedrine (From Allergy Intermediate AGITATION Verified 08/26/25 19:53 SUDAFED) pregabalin (From Lyrica) Allergy Dizziness Verified 08/26/25 19:53 Assessment & Plan Assessment & Plan (1) Depression, major, severe recurrence: Status: Resolved Code(s): F33.2 - Major depressive disorder, recurrent severe without psychotic features (2) OCD (obsessive compulsive disorder): Status: Acute Code(s): F42.9 - Obsessive-compulsive disorder, unspecified (3) PTSD (post-traumatic stress disorder): Status: Acute Code(s): F43.10 - Post-traumatic stress disorder, unspecified (4) Suicidal ideation: Status: Acute Code(s): R45.851 - Suicidal ideations Plan Admit to Geriatric unit a conditional voluntary. Patient with history of psych depression vague auditory hallucinations no commands increase Abilify to 7.5 mg she does have rapid tremor we have tried tapering Seroquel past and tried tapering Abilify both of which led to significant depression and relapse symptoms. Consider TMS after discharge. Patient had significant what appears to be unprofessional conduct by her therapist recently who who shame the patient on necessarily for what happened during psychotherapy. Patient needs help in getting distance from this and recovering from this times appears to understand that therapist had been quite unprofessional in doing this but it is a loss she had felt that they doing good work in helping her be more assertive with her who appears to have a great deal of difficulty tolerating emotional states in the patient understanding and accepting them. Patient does understand that she can change her but can change how she responds to him. In this vulnerable state again felt quite rejected and abandoned when he insisted on getting rid of the cats that more major connection to her friend who was suddenly . Labs unremarkable step-down back to the [facility] as possible. Psychoeducation prevention with the patient's as possible. Continue Anafranil Paxil Seroquel and Abilify monitor safety monitor psychosis before impulsive suicidality. Estimated length of stay 1 week ER medical eval reviewed 08/28/25: Reviewed with team. Reviewed plan of care. Pt reports she feels improved. She denies SI,HI,AH,VH. She asks if she can go out on the deck in the snow. Team are arranging this for her. Reports depressive sx 01/30, but I feel better . Social and visable on the unit. Imodium for IBS sx ordered 08/29/25: Team reports pt is doing better. She is talking of the loss and her sadness that her friends cats were given away. She is social and interactive. This am. she is in group and she appears engaged and interactive when observed. This afternoon, pt tells team she is quite anxious. Klonopin 0.5 mg x 1 prn ordered. Reason for continued inpatient stay Substantial Risk for: rapid decompensation Time Spent With Patient Time: Total time managing care of this patient today ____ minutes.
[2025-08-29 08:00] VITALS: TEMP 36.1
[2025-08-29 08:20] VITALS: BP 136/75; PULSE 75; TEMP 36.1; O2SAT 96
[2025-08-29 20:00] VITALS: BP 132/60; PULSE 76; RESP 18; TEMP 36.4; O2SAT 97
[2025-08-29] MEDS: PARoxetine HCL 40 MG TABLET PO (20:10)
[2025-08-30 09:00] VITALS: BP 120/59; PULSE 81; RESP 16; TEMP 36.8; O2SAT 96
--- NOTE | 2025-08-30 13:56 | P.PNPSI_ITS ---
Subjective Subjective Date of Service: 08/30/25 Reason For Visit: SI Mental Status Exam Mental Status Exam Patient Appearance: Appropriate Patient Orientation: Person, Place, Time and Situation Level of Consciousness: Alert Patient Behavior: Talkative and Good Eye Contact Mood Description: Constricted and Depressed Affect Description: Constricted Ability to Follow Directions: Good Speech Pattern: Spontaneous Speech Hallucinations: None Delusions: Not Present Thought Process: Intact Thought Content: positive for Intact and positive for Suicidal Ideation (denies) Judgement: Fair Diagnostics Vital Signs (24Hr): Vital Signs - 24 hr 08/29/25 20:00 08/30/25 09:00 Temperature 97.5 F 98.2 F Pulse Rate 76 81 Respiratory Rate 18 16 Blood Pressure 132/60 120/59 L Pulse Oximetry 97 96 Oxygen Delivery Method Room Air Room Air BMI result Body Mass Index 33.1 Labs 08/26/25 20:23 08/27/25 07:13 Medications Medications Current Medications Acetaminophen (Acetaminophen 325 Mg Tablet) 650 mg PO Q6H PRN PRN Reason: Headache/Pain, Scale 1-10 Al Hydroxide/Mg Hydroxide (Magnesium Hydrox/Alum Hydrox 30 Ml Oral.Susp) 30 ml PO Q6H PRN PRN Reason: Heartburn/Nausea Aripiprazole (Aripiprazole 5 Mg Tablet) 5 mg PO BEDTIME [facility] Last Admin: 08/29/25 20:09 Dose: 5 mg Aripiprazole (Aripiprazole 2 Mg Tablet) 2.5 mg PO DAILY [facility] Last Admin: 08/30/25 09:11 Dose: 2.5 mg Buspirone HCl (Buspirone Hcl 10 Mg Tablet) 10 mg PO BID [facility] Last Admin: 08/30/25 09:11 Dose: 10 mg Clomipramine HCl (Clomipramine Hcl 25 Mg Capsule) 75 mg PO BEDTIME [facility] Last Admin: 08/29/25 20:09 Dose: 75 mg Clonazepam (Clonazepam 0.5 Mg Tablet) 0.5 mg PO BEDTIME [facility] Last Admin: 08/29/25 20:10 Dose: 0.5 mg Clonazepam (Clonazepam 0.5 Mg Tablet) 0.5 mg PO DAILY PRN PRN Reason: Anxiety Last Admin: 08/30/25 12:42 Dose: 0.5 mg Hydroxyzine HCl (Hydroxyzine Hcl 25 Mg Tablet) 25 mg PO Q6H PRN PRN Reason: mild anxiety Last Admin: 08/28/25 12:22 Dose: 25 mg Loperamide HCl (Loperamide Hcl 2 Mg Capsule) 4 mg PO Q6H PRN PRN Reason: ibs sx Magnesium Hydroxide (Milk Of Magnesia 30 Ml Oral.Susp) 30 ml PO DAILY PRN PRN Reason: Constipation Nicotine (Nicotine 21 Mg Patch.Td24) 21 mg TRANSDERMA DAILY PRN PRN Reason: nicotine craving Nicotine Polacrilex (Nicotine Polacrilex 2 Mg Gum) 2 mg BUCCAL Q2H PRN PRN Reason: Nicotine Cravings Pt Own (Lmethyl Folate 7.5 Mg Capsules) 15 mg PO DAILY [facility] Last Admin: 08/30/25 09:11 Dose: 15 mg Omeprazole (Omeprazole 20 Mg Capsule.Dr) 20 mg PO DAILY@0630 [facility] Last Admin: 08/30/25 05:53 Dose: 20 mg Paroxetine HCl (Paroxetine Hcl 40 Mg Tablet) 40 mg PO BEDTIME [facility] Last Admin: 08/29/25 20:10 Dose: 40 mg Pramipexole Dihydrochloride (Pramipexole Di-Hcl 0.125 Mg Tablet) 0.125 mg PO TID [facility] Last Admin: 08/30/25 09:11 Dose: 0.125 mg Quetiapine Fumarate (Quetiapine Fumarate 400 Mg Tablet) 400 mg PO BEDTIME [facility] Last Admin: 08/29/25 20:09 Dose: 400 mg Trazodone HCl (Trazodone Hcl 50 Mg Tablet) 50 mg PO BEDTIME MRX1 PRN PRN Reason: Insomnia Allergies Allergies Allergy/AdvReac Type Severity Reaction Status Date / Time shellfish derived (SHELLFISH Allergy Severe DIFFICULTY Verified 08/26/25 19:53 DERIVED) BREATHING pseudoephedrine (From Allergy Intermediate AGITATION Verified 08/26/25 19:53 SUDAFED) pregabalin (From Lyrica) Allergy Dizziness Verified 08/26/25 19:53 Assessment & Plan Assessment & Plan (1) Depression, major, severe recurrence: Status: Resolved Code(s): F33.2 - Major depressive disorder, recurrent severe without psychotic features (2) OCD (obsessive compulsive disorder): Status: Acute Code(s): F42.9 - Obsessive-compulsive disorder, unspecified (3) PTSD (post-traumatic stress disorder): Status: Acute Code(s): F43.10 - Post-traumatic stress disorder, unspecified (4) Suicidal ideation: Status: Acute Code(s): R45.851 - Suicidal ideations Plan Admit to Geriatric unit a conditional voluntary. Patient with history of psych depression vague auditory hallucinations no commands increase Abilify to 7.5 mg she does have rapid tremor we have tried tapering Seroquel past and tried tapering Abilify both of which led to significant depression and relapse symptoms. Consider TMS after discharge. Patient had significant what appears to be unprofessional conduct by her therapist recently who who shame the patient on necessarily for what happened during psychotherapy. Patient needs help in getting distance from this and recovering from this times appears to understand that therapist had been quite unprofessional in doing this but it is a loss she had felt that they doing good work in helping her be more assertive with her who appears to have a great deal of difficulty tolerating emotional states in the patient understanding and accepting them. Patient does understand that she can change her but can change how she responds to him. In this vulnerable state again felt quite rejected and abandoned when he insisted on getting rid of the cats that more major connection to her friend who was suddenly . Labs unremarkable step-down back to the [facility] as possible. Psychoeducation prevention with the patient's as possible. Continue Anafranil Paxil Seroquel and Abilify monitor safety monitor psychosis before impulsive suicidality. Estimated length of stay 1 week ER medical eval reviewed 08/28/25: Reviewed with team. Reviewed plan of care. Pt reports she feels improved. She denies SI,HI,AH,VH. She asks if she can go out on the deck in the snow. Team are arranging this for her. Reports depressive sx /10, but I feel better . Social and visable on the unit. Imodium for IBS sx ordered 08/29/25: Team reports pt is doing better. She is talking of the loss and her sadness t hat her friends cats were given away. She is social and interactive. This am. she is in group and she appears engaged and interactive when observed. This afternoon, pt tells team she is quite anxious. Klonopin 0.5 mg x 1 prn ordered. 08/30/25 pt inc depressed hopeless helpless meet with inc abilify 10 mg daily despairing monitor safety Reason for continued inpatient stay Substantial Risk for: harm to self and rapid decompensation Time Spent With Patient Time: Total time managing care of this patient today ____ minutes.
[2025-08-30 20:00] VITALS: BP 148/70; PULSE 86; RESP 18; TEMP 36.8; O2SAT 97
[2025-08-30] MEDS: PARoxetine HCL 40 MG TABLET PO (20:18)
[2025-08-31 07:40] VITALS: BP 126/59; PULSE 74; TEMP 36.2; O2SAT 94
--- NOTE | 2025-08-31 16:03 | HO.PSYCHPN ---
Subjective Subjective Date of Service: 08/31/25 Reason For Visit: SI Subjective Notes: Conditional Voluntary Healthcare Proxy: No Interim History: pt cooperative depressed ruminating tolerating inc abilify Mental Status Exam Mental Status Exam Patient Appearance: Appropriate Patient Orientation: Person, Place, Time and Situation Level of Consciousness: Alert Patient Behavior: Talkative and Good Eye Contact Mood Description: Constricted and Depressed Affect Description: Constricted Ability to Follow Directions: Good Speech Pattern: Spontaneous Speech Hallucinations: None Delusions: Not Present Thought Process: Intact Thought Content: positive for Intact and positive for Suicidal Ideation (denies) Judgement: Fair Diagnostics Vital Signs (24Hr): Vital Signs - 24 hr 08/30/25 20:00 08/31/25 07:40 Temperature 98.2 F 97.2 F Pulse Rate 86 74 Respiratory Rate 18 Blood Pressure 148/70 H 126/59 L Pulse Oximetry 97 94 Oxygen Delivery Method Room Air Room Air BMI result Body Mass Index 33.1 Labs 08/26/25 20:23 08/27/25 07:13 Medications Medications Current Medications Acetaminophen (Acetaminophen 325 Mg Tablet) 650 mg PO Q6H PRN PRN Reason: Headache/Pain, Scale 1-10 Al Hydroxide/Mg Hydroxide (Magnesium Hydrox/Alum Hydrox 30 Ml Oral.Susp) 30 ml PO Q6H PRN PRN Reason: Heartburn/Nausea Aripiprazole (Aripiprazole 5 Mg Tablet) 5 mg PO BEDTIME [facility] Last Admin: 08/30/25 20:18 Dose: 5 mg Aripiprazole (Aripiprazole 5 Mg Tablet) 5 mg PO DAILY [facility] Last Admin: 08/31/25 08:30 Dose: 5 mg Buspirone HCl (Buspirone Hcl 10 Mg Tablet) 10 mg PO BID [facility] Last Admin: 08/31/25 08:31 Dose: 10 mg Clomipramine HCl (Clomipramine Hcl 25 Mg Capsule) 75 mg PO BEDTIME [facility] Last Admin: 08/30/25 20:18 Dose: 75 mg Clonazepam (Clonazepam 0.5 Mg Tablet) 0.5 mg PO BEDTIME [facility] Last Admin: 08/30/25 20:19 Dose: 0.5 mg Clonazepam (Clonazepam 0.5 Mg Tablet) 0.5 mg PO DAILY PRN PRN Reason: Anxiety Last Admin: 08/30/25 12:42 Dose: 0.5 mg Hydroxyzine HCl (Hydroxyzine Hcl 25 Mg Tablet) 25 mg PO Q6H PRN PRN Reason: mild anxiety Last Admin: 08/28/25 12:22 Dose: 25 mg Loperamide HCl (Loperamide Hcl 2 Mg Capsule) 4 mg PO Q6H PRN PRN Reason: ibs sx Last Admin: 08/31/25 04:12 Dose: 2 mg Magnesium Hydroxide (Milk Of Magnesia 30 Ml Oral.Susp) 30 ml PO DAILY PRN PRN Reason: Constipation Nicotine (Nicotine 21 Mg Patch.Td24) 21 mg TRANSDERMA DAILY PRN PRN Reason: nicotine craving Nicotine Polacrilex (Nicotine Polacrilex 2 Mg Gum) 2 mg BUCCAL Q2H PRN PRN Reason: Nicotine Cravings Pt Own (Lmethyl Folate 7.5 Mg Capsules) 15 mg PO DAILY [facility] Last Admin: 08/31/25 08:30 Dose: 15 mg Omeprazole (Omeprazole 20 Mg Capsule.Dr) 20 mg PO DAILY@0630 [facility] Last Admin: 08/31/25 05:48 Dose: 20 mg Paroxetine HCl (Paroxetine Hcl 40 Mg Tablet) 40 mg PO BEDTIME [facility] Last Admin: 08/30/25 20:18 Dose: 40 mg Pramipexole Dihydrochloride (Pramipexole Di-Hcl 0.125 Mg Tablet) 0.125 mg PO TID [facility] Last Admin: 08/31/25 14:57 Dose: 0.125 mg Quetiapine Fumarate (Quetiapine Fumarate 400 Mg Tablet) 400 mg PO BEDTIME [facility] Last Admin: 08/30/25 20:18 Dose: 400 mg Quetiapine Fumarate (Quetiapine Fumarate 25 Mg Tablet) 25 mg PO BID PRN PRN Reason: anxiety Last Admin: 08/31/25 14:56 Dose: 25 mg Trazodone HCl (Trazodone Hcl 50 Mg Tablet) 50 mg PO BEDTIME MRX1 PRN PRN Reason: Insomnia Allergies Allergies Allergy/AdvReac Type Severity Reaction Status Date / Time shellfish derived (SHELLFISH Allergy Severe DIFFICULTY Verified 08/26/25 19:53 DERIVED) BREATHING pseudoephedrine (From Allergy Intermediate AGITATION Verified 08/26/25 19:53 SUDAFED) pregabalin (From Lyrica) Allergy Dizziness Verified 08/26/25 19:53 Assessment & Plan Assessment & Plan (1) Depression, major, severe recurrence: Status: Resolved Code(s): F33.2 - Major depressive disorder, recurrent severe without psychotic features (2) OCD (obsessive compulsive disorder): Status: Acute Code(s): F42.9 - Obsessive-compulsive disorder, unspecified (3) PTSD (post-traumatic stress disorder): Status: Acute Code(s): F43.10 - Post-traumatic stress disorder, unspecified (4) Suicidal ideation: Status: Acute Code(s): R45.851 - Suicidal ideations Plan Admit to Geriatric unit a conditional voluntary. Patient with history of psych depression vague auditory hallucinations no commands increase Abilify to 7.5 mg she does have rapid tremor we have tried tapering Seroquel past and tried tapering Abilify both of which led to significant depression and relapse symptoms. Consider TMS after discharge. Patient had significant what appears to be unprofessional conduct by her therapist recently who who shame the patient on necessarily for what happened during psychotherapy. Patient needs help in getting distance from this and recovering from this times appears to understand that therapist had been quite unprofessional in doing this but it is a loss she had felt that they doing good work in helping her be more assertive with her who appears to have a great deal of difficulty tolerating emotional states in the patient understanding and accepting them. Patient does understand that she can change her but can change how she responds to him. In this vulnerable state again felt quite rejected and abandoned when he insisted on getting rid of the cats that more major connection to her friend who was suddenly . Labs unremarkable step-down back to the [facility] as possible. Psychoeducation prevention with the patient's as possible. Continue Anafranil Paxil Seroquel and Abilify monitor safety monitor psychosis before impulsive suicidality. Estimated length of stay 1 week ER medical eval reviewed 08/28/25: Reviewed with team. Reviewed plan of care. Pt reports she feels improved. She denies SI,HI,AH,VH. She asks if she can go out on the deck in the snow. Team are arranging this for her. Reports depressive sx 01/30, but I feel better . Social and visable on the unit. Imodium for IBS sx ordered 08/29/25: Team reports pt is doing better. She is talking of the loss and her sadness t hat her friends cats were given away. She is social and interactive. This am. she is in group and she appears engaged and interactive when observed. This afternoon, pt tells team she is quite anxious. Klonopin 0.5 mg x 1 prn ordered. 08/30/25 pt inc depressed hopeless helpless meet with inc abilify 10 mg daily despairing monitor safety 08/31/25 Inc abilify 10 mg mtg with husbamd in am denies active si Reason for continued inpatient stay Substantial Risk for: harm to self and stable for discharge Time Spent With Patient Time: Total time managing care of this patient today ____ minutes.
[2025-08-31 20:00] VITALS: BP 134/65; PULSE 78; RESP 18; TEMP 36.4; O2SAT 95
[2025-08-31] MEDS: PARoxetine HCL 40 MG TABLET PO (20:08)
[2025-09-01 08:00] VITALS: BP 137/68; PULSE 80; RESP 18; TEMP 36.6; O2SAT 98
[2025-09-01 20:00] VITALS: BP 148/87; PULSE 88; RESP 16; TEMP 36.4; O2SAT 97
[2025-09-01] MEDS: PARoxetine HCL 40 MG TABLET PO (20:12)
--- NOTE | 2025-09-01 22:37 | P.PNPSI_ITS ---
Subjective Subjective Date of Service: 09/01/25 Reason For Visit: SI Subjective Notes: Conditional Voluntary Healthcare Proxy: No Guardianship: No Interim History: Pt seen in f/u with her seen prior to d/c to try and stabilize things prior to pt returning. Deborahfnieves some c/o nausea Mental Status Exam Mental Status Exam Patient Appearance: Appropriate Patient Orientation: Person, Place, Time and Situation Level of Consciousness: Alert Patient Behavior: Talkative and Good Eye Contact Mood Description: Constricted, Depressed and Apprehensive Affect Description: Constricted Ability to Follow Directions: Good Speech Pattern: Spontaneous Speech Hallucinations: None Delusions: Not Present Thought Process: Intact Thought Content: positive for Intact Depressive Symptoms: Increased Anxiety Judgement: Good Diagnostics Vital Signs (24Hr): Vital Signs - 24 hr 09/01/25 08:00 09/01/25 20:00 Temperature 97.9 F 97.5 F Pulse Rate 80 88 Respiratory Rate 18 16 Blood Pressure 137/68 148/87 H Pulse Oximetry 98 97 Oxygen Delivery Method Room Air Room Air BMI result Body Mass Index 33.1 Labs 08/26/25 20:23 08/27/25 07:13 Medications Medications Current Medications Acetaminophen (Acetaminophen 325 Mg Tablet) 650 mg PO Q6H PRN PRN Reason: Headache/Pain, Scale 1-10 Al Hydroxide/Mg Hydroxide (Magnesium Hydrox/Alum Hydrox 30 Ml Oral.Susp) 30 ml PO Q6H PRN PRN Reason: Heartburn/Nausea Aripiprazole (Aripiprazole 5 Mg Tablet) 2.5 mg PO BEDTIME [facility] Last Admin: 09/01/25 20:12 Dose: 2.5 mg Buspirone HCl (Buspirone Hcl 10 Mg Tablet) 10 mg PO BID [facility] Last Admin: 09/01/25 20:12 Dose: 10 mg Clomipramine HCl (Clomipramine Hcl 25 Mg Capsule) 75 mg PO BEDTIME [facility] Last Admin: 09/01/25 20:11 Dose: 75 mg Clonazepam (Clonazepam 0.5 Mg Tablet) 0.5 mg PO BEDTIME [facility] Last Admin: 09/01/25 20:13 Dose: 0.5 mg Clonazepam (Clonazepam 0.5 Mg Tablet) 0.5 mg PO DAILY PRN PRN Reason: Anxiety Last Admin: 08/30/25 12:42 Dose: 0.5 mg Hydroxyzine HCl (Hydroxyzine Hcl 25 Mg Tablet) 25 mg PO Q6H PRN PRN Reason: mild anxiety Last Admin: 08/28/25 12:22 Dose: 25 mg Loperamide HCl (Loperamide Hcl 2 Mg Capsule) 4 mg PO Q6H PRN PRN Reason: ibs sx Last Admin: 09/01/25 20:13 Dose: 4 mg Magnesium Hydroxide (Milk Of Magnesia 30 Ml Oral.Susp) 30 ml PO DAILY PRN PRN Reason: Constipation Nicotine (Nicotine 21 Mg Patch.Td24) 21 mg TRANSDERMA DAILY PRN PRN Reason: nicotine craving Nicotine Polacrilex (Nicotine Polacrilex 2 Mg Gum) 2 mg BUCCAL Q2H PRN PRN Reason: Nicotine Cravings Pt Own (Lmethyl Folate 7.5 Mg Capsules) 15 mg PO DAILY [facility] Last Admin: 09/01/25 08:39 Dose: 15 mg Omeprazole (Omeprazole 20 Mg Capsule.Dr) 20 mg PO DAILY@0630 [facility] Last Admin: 09/01/25 06:03 Dose: 20 mg Ondansetron HCl (Ondansetron Odt 4 Mg Tab.Rapdis) 4 mg TRANSLINGU Q6H PRN PRN Reason: Nausea and Vomiting Paroxetine HCl (Paroxetine Hcl 40 Mg Tablet) 40 mg PO BEDTIME [facility] Last Admin: 09/01/25 20:12 Dose: 40 mg Pramipexole Dihydrochloride (Pramipexole Di-Hcl 0.125 Mg Tablet) 0.125 mg PO TID [facility] Last Admin: 09/01/25 20:12 Dose: 0.125 mg Quetiapine Fumarate (Quetiapine Fumarate 400 Mg Tablet) 400 mg PO BEDTIME [facility] Last Admin: 09/01/25 20:12 Dose: 400 mg Quetiapine Fumarate (Quetiapine Fumarate 25 Mg Tablet) 25 mg PO BID PRN PRN Reason: anxiety Last Admin: 09/01/25 06:09 Dose: 25 mg Trazodone HCl (Trazodone Hcl 50 Mg Tablet) 50 mg PO BEDTIME MRX1 PRN PRN Reason: Insomnia Allergies Allergies Allergy/AdvReac Type Severity Reaction Status Date / Time shellfish derived (SHELLFISH Allergy Severe DIFFICULTY Verified 08/26/25 19:53 DERIVED) BREATHING pseudoephedrine (From Allergy Intermediate AGITATION Verified 08/26/25 19:53 SUDAFED) pregabalin (From Lyrica) Allergy Dizziness Verified 08/26/25 19:53 Assessment & Plan Assessment & Plan (1) Depression, major, severe recurrence: Status: Resolved Code(s): F33.2 - Major depressive disorder, recurrent severe without psychotic features (2) OCD (obsessive compulsive disorder): Status: Acute Code(s): F42.9 - Obsessive-compulsive disorder, unspecified (3) PTSD (post-traumatic stress disorder): Status: Acute Code(s): F43.10 - Post-traumatic stress disorder, unspecified (4) Suicidal ideation: Status: Acute Code(s): R45.851 - Suicidal ideations Plan Admit to Geriatric unit a conditional voluntary. Patient with history of psych depression vague auditory hallucinations no commands increase Abilify to 7.5 mg she does have rapid tremor we have tried tapering Seroquel past and tried tapering Abilify both of which led to significant depression and relapse symptoms. Consider TMS after discharge. Patient had significant what appears to be unprofessional conduct by her therapist recently who who shame the patient on necessarily for what happened during psychotherapy. Patient needs help in getting distance from this and recovering from this times appears to understand that therapist had been quite unprofessional in doing this but it is a loss she had felt that they doing good work in helping her be more assertive with her who appears to have a great deal of difficulty tolerating emotional states in the patient understanding and accepting them. Patient does understand that she can change her but can change how she responds to him. In this vulnerable state again felt quite rejected and abandoned when he insisted on getting rid of the cats that more major connection to her friend who was suddenly . Labs unremarkable step-down back to the [facility] as possible. Psychoeducation prevention with the patient's as possible. Continue Anafranil Paxil Seroquel and Abilify monitor safety monitor psychosis before impulsive suicidality. Estimated length of stay 1 week ER medical eval reviewed 08/28/25: Reviewed with team. Reviewed plan of care. Pt reports she feels improved. She denies SI,HI,AH,VH. She asks if she can go out on the deck in the snow. Team are arranging this for her. Reports depressive sx /10, but I feel better . Social and visable on the unit. Imodium for IBS sx ordered 08/29/25: Team reports pt is doing better. She is talking of the loss and her sadness t hat her friends cats were given away. She is social and interactive. This am. she is in group and she appears engaged and interactive when observed. This afternoon, pt tells team she is quite anxious. Klonopin 0.5 mg x 1 prn ordered. 08/30/25 pt inc depressed hopeless helpless meet with inc abilify 10 mg daily despairing monitor safety 08/31/25 Inc abilify 10 mg mtg with husbamd in am denies active si 09/01/25 Regerral to php abilify 7.5-10 mg seroquel 400 hs Patient educated on: medication risk/benefits and therapeutic strategies Informed Consent: understands Reason for continued inpatient stay Substantial Risk for: harm to self and rapid decompensation Time Spent With Patient Time: Total time managing care of this patient today __45__ minutes.
[2025-09-02 08:40] VITALS: BP 126/62; PULSE 79; RESP 17; TEMP 36.4; O2SAT 93
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
== END 2025-09-02 13:12 | disposition home or self-care (01) | DRG 885 ==
LOC: HO.ED 22:37 → HO.PGERI 22:43
PROVIDERS: Physician Assistant; Admitting Provider Nurse Practitioner Psychiatric/Mental Health; Emergency Provider Emergency Medicine; PCP Nurse Practitioner Family; Visit Provider Nurse Practitioner Psychiatric/Mental Health
DX: F33.2 Major depressive disorder, recurrent severe without psychotic features (principal); R45.851 Suicidal ideations; K21.9 Gastro-esophageal reflux disease without esophagitis; K76.0 Fatty (change of) liver, not elsewhere classified; F42.9 Obsessive-compulsive disorder, unspecified; F43.10 Post-traumatic stress disorder, unspecified; Z79.899 Other long term (current) drug therapy
CPT/HCPCS: 36415; 80053; 80061; 80307; 81003; 82248; 82607; 82746; 83036; 83735; 84439; 84443; 85025; 93005; 99285; S9485

== ENCOUNTER → 2025-08-26 21:28 | Outpatient (BNV) | payer MEDICARE, SELFPAY | PROVIDERS: Admitting Provider Nurse Practitioner Psychiatric/Mental Health; Emergency Provider Emergency Medicine; PCP Nurse Practitioner Family; Visit Provider Internal Medicine | DX: R94.31 Abnormal electrocardiogram [ECG] [EKG] (principal); Z13.6 Encounter for screening for cardiovascular disorders | CPT/HCPCS: 93010 ==

== ENCOUNTER → 2025-08-26 22:29 | Outpatient (BNV) | payer MEDICARE, SELFPAY | PROVIDERS: Admitting Provider Nurse Practitioner Psychiatric/Mental Health; Emergency Provider Emergency Medicine; PCP Nurse Practitioner Family; Visit Provider Psychiatry & Neurology Psychiatry | DX: F33.2 Major depressive disorder, recurrent severe without psychotic features (principal); F42.9 Obsessive-compulsive disorder, unspecified; F43.10 Post-traumatic stress disorder, unspecified; R45.851 Suicidal ideations | CPT/HCPCS: 90792; 99232 ==

== ENCOUNTER → 2025-08-26 22:29 | Outpatient (BNV) | payer MEDICARE, SELFPAY | PROVIDERS: Admitting Provider Nurse Practitioner Psychiatric/Mental Health; Emergency Provider Emergency Medicine; PCP Nurse Practitioner Family; Visit Provider Nurse Practitioner Family | DX: K21.9 Gastro-esophageal reflux disease without esophagitis (principal) | CPT/HCPCS: 99221 ==

== ENCOUNTER → 2025-08-26 22:29 | Outpatient (BNV) | payer MEDICARE, SELFPAY | PROVIDERS: Admitting Provider Nurse Practitioner Psychiatric/Mental Health; Emergency Provider Emergency Medicine; PCP Nurse Practitioner Family; Visit Provider Clinical Nurse Specialist Psychiatric/Mental Health, Adult | DX: F33.2 Major depressive disorder, recurrent severe without psychotic features (principal); F42.9 Obsessive-compulsive disorder, unspecified; F43.11 Post-traumatic stress disorder, acute; R45.851 Suicidal ideations | CPT/HCPCS: 99232 ==

== ENCOUNTER 2025-09-21 14:21 | Outpatient (REF) | payer MEDICARE, SELFPAY ==
--- NOTE | 2025-09-21 14:27 | ECG_ITS ---
Test Reason : ck qtc Blood Pressure : */* mmHG Vent. Rate : 96 BPM Atrial Rate : 96 BPM P-R Int : 174 ms QRS Dur : 86 ms QT Int : 400 ms P-R-T Axes : 61 0 76 degrees QTcB Int : 505 ms Normal sinus rhythm Nonspecific ST and T wave abnormality Prolonged QT Abnormal ECG When compared with ECG of 26-Aug-2025 21:28, No significant change was found Referred By: Clotilde Brewer Electronically Signed By: ANDREIA LIMON
[2025-09-21 16:32] LABS: Parathyroid Hormone Intact 215.6 pg/mL (8.7-77.1)
[2025-09-21 16:53] LABS: Free T4 (Free Thyroxine) 0.73 ng/dL (0.71-1.85); Thyroid Stimulating Hormone 2.94 uIU/mL (0.32-4.0)
--- OUTSIDE RECORDS SUMMARY | 2025-09-21 18:06 | XMS_ITS | Clinical Summary ---
Author Organization [facility] [address] [facility] Address [address] [place] [address] Phone Care Team Providers Care Integration Software Developer Name Role Phone July Estrella [employer] ARCHIT[employer] Primary Care Provider [phone] Social History Tobacco Use Types Packs/Day Years [...] age to complete this topic Insurance MEDICARE [facility] Care Teams Integration Software Developer Relationship Specialty Start Date End Date July Estrella NP [address] [facility] [address] PCP - General Nurse Practitioner 09/30/24
--- OUTSIDE RECORDS SUMMARY | 2025-09-21 18:06 | XMS_ITS | Clinical Summary ---
Author Organization [facility] Address [address] [place] [address] [address] [place] [address] Phone Care Team Providers Care Party Coordinator Name Role Phone July Estrella NP Primary Care Provider [phone] Social History Tobacco Use Types Packs/Day Years [...] Description 07/12/2026 1:00 PM EDT Office Visit [facility] [address] Count In[address] [facility], [address] [place] [address] Pau Wray MD, PhD [address] [place] [id number] [email or web address] Maintenance Due Date Last Done Comments [...] topic Medical [place] [id number] MEDICARE RAILROAD [facility] MEDICARE SUPPLEMENT MEDICARE RAILROAD Member Subscriber Plan / Payer (Ef fective 2021-Present) Name:Alida Candelaria Member ID:[id number] Relation to Subscriber:Self Name:Alida Candelaria Subscriber ID:[id number] Payer ID:[id number] Group ID:Not on file Type:Medicare Address: [address] MEDICARE SUPPLEMENT MEDICARE RAILROAD [facility] MEDICARE SUPPLEMENT MEDICARE RAILROAD [facility] MEDICARE SUPPLEMENT MEDICARE RAILROAD [place]IC[place] [address] MED[address]ARE RAILROAD Member Subscriber Plan / Payer (Ef fective 2021-Present) Name:Alida Candelaria Member ID:[id number] Relation to Subscriber:Self Name:Alida Candelaria Subscriber ID:[id number] Payer ID:[id number] Group ID:Not on file Type:Medicare Address: [address] MEDICARE SUPPLEMENT Care Teams Party Coordinator Relationship Specialty Start Date End Date July Estrella NP [address] [place] [address] PCP - General Nurse Practitioner 07/23/24 Additional Source Comments The information contained in this document represents components of the legal health record. It is not the complete legal health record.[facility]
--- OUTSIDE RECORDS SUMMARY | 2025-09-21 18:06 | XMS_ITS | Clinical Summary ---
Author Organization [facility] Address [address] [place] [address] Care Team Providers Care Hotbed Operator Name Role Phone Unavailable Primary Care Provider [...] complete this [place] [id number] [facility]
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
--- OUTSIDE RECORDS SUMMARY | 2025-09-21 18:06 | XMS_ITS | Data Portability ---
Author Organization [facility], [facility] Address [address] [place] [address] Assessment No assessment recorded. Plan of Treatment Reminders Order Date Submit Date Provider Last Modified By Organization Details Last Modified Time Details Appointments None recorded. Lab urinalysis , dipstick 2022 023 [email or web address] [facility], [address] [place] [address], [place], [address], 16:29:08 culture, urine 2022 023 DERBY [facility], [address] [place] [address], [place], [address], 10:06:34 Referral None recorded. Procedures None recorded. Surgeries None recorded. Imaging None recorded. Medication Orders None recorded. Patient TargetsNo targets recorded. Patient Instructions Encounter Date Encounter Id Patient Instructions Last Modified By Organization Details Last Modified Time 10/15/2022 [id number] We recommend you get a repeat urinalysis [...] FINAL REPORT abnormal Not Available [facility] ([facility]) [address], [place], [address], 10/18/2022 12:06:27 10/15/19 23 10/18/2022 URINE CULTU [...] units per mL Not Available [facility] ([facility]) [address], [place], [address], 10/18/2022 12:06:27 10/15/19 23 10/18/2022 URINE CULTU [...] im/Unger lfa S Not Available [facility] ([facility]) [address], [place], [address], 10/18/2022 12:06:27 10/15/1910/15/2022 urina lysis , dipst ick Unknown Analyte Normal = light yellow Not Available [facility] [address], [place], [address], 10/15/2022 14:30:39 10/15/1910/15/2022 urina lysis , dipst ick Unknown Analyte Yellow Not Available tee [address], [place], [address], 10/15/2022 14:30:39 10/15/1910/15/2022 urina lysis , dipst ick Unknown Analyte Normal = clear Not Available [facility] [address], [place], [address], 10/15/2022 14:30:39 10/15/19 23 10/15/2022 urina lysis , dipst ick Unknown Analyte Cloudy Not Available tee [address], [place], [address], 10/15/2022 14:30:39 10/15/1910/15/2022 urina lysis , dipst ick Unknown Analyte Normal = negati ve Not Available linn [address], [place], [address], 10/15/2022 14:30:39 10/15/1910/15/2022 urina lysis , dipst ick Unknown Analyte Negati ve Not Available [facility] [address], [place], [address], 10/15/2022 14:30:39 10/15/19 23 10/15/2022 urina lysis , dipst ick Unknown Analyte Normal = Negati ve Not Available [facility] [address], [place], [address], 10/15/2022 14:30:39 10/15/1910/15/2022 urina lysis , dipst ick Unknown Analyte Negati ve Not Available [facility] [address], [place], [address], 10/15/2022 14:30:39 10/15/1910/15/2022 urina lysis , dipst ick Unknown Analyte Normal = Negati ve Not Available [facility] [address], [place], [address], 10/15/2022 14:30:39 10/15/1910/15/2022 urina lysis , dipst ick Unknown Analyte Negati ve Not Available [facility] [address], [place], [address], 10/15/2022 14:30:39 10/15/1910/15/2022 urina lysis , dipst ick Unknown Analyte Normal = 1.010, 1.015, 1.020 Not Available [facility] [address], [place], [address], 10/15/2022 14:30:39 10/15/1910/15/2022 urina lysis , dipst ick Unknown Analyte 1.020 Not Available [address], [place], [address], 10/15/2022 14:30:39 10/15/1910/15/2022 urina lysis , dipst ick Unknown Analyte Normal = Negati ve Not Available [facility] [address], [place], [place], [address], 10/15/2022 14:30:39 10/15/19 23 10/15/2022 urina lysis , dipst ick Unknown Analyte Large Not Available [facility] [address], [place], [address], 10/15/2022 14:30:39 10/15/19 23 10/15/2022 urina lysis , dipst ick Unknown Analyte Normal = 6.5, 7.0, 7.5, 8.0 Not Available [facility] [address], [place], [address], 10/15/2022 14:30:39 10/15/1910/15/2022 urina lysis , dipst ick Unknown Analyte 7.0 Not Available [address], [place], [address], 10/15/2022 14:30:39 10/15/19 23 10/15/2022 urina lysis , dipst ick Unknown Analyte Normal = Negati ve Not Available [facility] [address], [place], [address], 10/15/2022 14:30:39 10/15/19 23 10/15/2022 urina lysis , dipst ick Unknown Analyte 30 mg/dL Not Available [facility] [address], [place], [address], 10/15/2022 14:30:39 10/15/19 23 10/15/2022 urina lysis , dipst ick Unknown Analyte Normal = 0.2, 1.0 Not Available [facility] [address], [place], [address], 10/15/2022 14:30:39 10/15/19 23 10/15/2022 urina lysis , dipst ick Unknown Analyte 0.2 E.U./d L Not Available [facility] [address], [place], [address], 10/15/2022 14:30:39 10/15/1910/15/2022 urina lysis , dipst ick Unknown Analyte Normal = Negati ve Not Available [address] [address], [place], [address], 10/15/2022 14:30:39 10/15/1910/15/2022 urina lysis , dipst ick Unknown Analyte Negati ve Not Available [address] [address], [place], [address], 10/15/2022 14:30:39 10/15/1910/15/2022 urina lysis , dipst ick Unknown Analyte Normal = Negati ve Not Available [address] [facility] [address], [place], [address], 10/15/2022 14:30:39 10/15/1910/15/2022 urina lysis , dipst ick Unknown Analyte Modera te Not Available [address] [facility] [address], [place], [address], 10/15/2022 14:30:39 Result Notes None recorded. Problems Name Problem SNOMED Code Status Onset Date Resolution Date Notes Provider Name and Address Organization Details Recorded Time Gastroesophage al reflux disease 110546516 Active 2022 Missy Champion null, PA - [facility] 14:34:47 Anxiety 97694853 Active 2022 Missy Champion null, PA - [facility] 14:35:10 Depressive disorder 58337958 Active 2022 Missy Jae null, PA - [facility] 14:35:14 Notes:Restricitve airway dis ease Problem Notes None recorded. Procedures Surgical History Date Name Laterality Status Provider Name and Address Organization Details Recorded Time Appendectomy completed Missy Champion PA - [facility] 10/15/2022 14:35:32 cholecystostomy [...] Name and Address Organization Details Recorded Time 163073 Sudafed medicatio n insomnia Not available low 10/15/2022 24467 2 RxNorm Missy Jae null, PA - [facility] 14:31:58 922995 Lyrica medicatio n dizziness Not available high 10/15/2022 18274 1 RxNorm Missy Jae null, PA - [...] Updated DateTime 3 170.18 cm 32.9 kg/m2 50665.4 g 99 % 105 /min 20 /min 98.1 [degF] 155/83 mm[Hg] Missy Champion PA - [facility] 3 14:36:59 Social [...] ICD10 Code Diagnosis IMO Codes Diagnosis Note [id number] [facility] [address] [place] [address] 08/13/2020 14:18:01 08/13/2020 15:37:22 [id number] [facility] [address] [place] [address] 08/13/2020 13:19:52 08/13/2020 15:34:27 [id number] Dipak Kathleen [place] [address] [place] [address] 10/15/2022 14:08:24 10/15/2022 16:32:00 Acute urinary tract infection 939337985 N39.0 Health Concerns Section Related Observation LastModified by Organization Detai ls LastModified Time None Recorded Concern Status LastModified by Organization Details LastModified Time None Recorded Advance Directives Directive None Recorded Payers Insurance Date Sequence Insurance Name Policy Number Policy Monahan Covered Member ID Monahan Member ID Guarantor Name 10/15/2022 NINO [facility] - MEDICARE-[address] LONG-TERM BOARD (MEDICARE) Alida Candelaria [id number] Alida Candelaria 10/15/2022 1 [place] NATIONAL GOVERNMENT SERVICES Alida Candelaria [id number] Alida Candelaria 10/15/2022 1 [facility] (O) [id number] Shashank Candelaria [id number] Alida Candelaria 12/06/2022 2 AARP (MEDICARE SUPPLEMENT) Alida Candelaria [id number] Alida Candelaria Notes Date Note Type Note [...] Kathleen NP [address] [place], [address], PA - [facility] 10/20/2022 09:59:41 OBGyn Episode No OBEpisode recorded.
--- OUTSIDE RECORDS SUMMARY | 2025-09-21 18:06 | XMS_ITS | Clinical Summary ---
Author Organization [facility] Address [address] [place] [address] Care Team Providers Care Supervisory Examiner Name Role Phone Out Of Area, Pcp-Mp [...] Risk Screening 2021 COVID-19 Vaccine ( season) 2025 09/20/2021, 11/11/2020, 10/14/2020 RSV Immunization ( o r 60+ Years) (1 - 1-dose 75+ series) 11/29/[address] [place] [address] [address] [address] RAILROAD MEDICARE RAILRO[employer] MEDICARE [facility] Care Teams Supervisory Examiner Relationship Specialty Start Date End Date Out Of Area, Pcp-Mp PCP - General 06/14/24
--- OUTSIDE RECORDS SUMMARY | 2025-09-21 18:06 | XMS_ITS | Patient Health Record ---
Author Organization [facility] Address [address] [place] [address] Care Team Providers Care Fountain Manager Name Role Phone Mirlande RODGERS, Tena Primary Care Provider Unatrey jimenez Quentin Giovana Unavailable [phone] Allergies Allergen (clinical drug ingredient) Drug/Non Drug [...] Insured Coverage Start Date Coverage End Date [facility] [id number] [address] [address] [place] [address] [id number] Alida Candelaria Self - patient is the insured [facility] [id number] [address] [address] [place] [address] [id number] Alida Candelaria Self - patient is the insured Medical (General) History Medical History History ICD Code Anxiety Depression Diverticulitis Psychiatric disorder Reflux ( GERD) Measles Chicken pox Surgical History Surgery Date(Month/Year) Tonselectomy 1963 Appendectomy 1969 Cholecystectomy 2016 Hospitalization History Reason Date(Month/Year) [facility]- Psychiatric/ suicidal thoughts 04/24 and 09/2018
[2025-09-22 10:34] LABS: Calcium, Ionized 5.3 mg/dL (4.7-5.5)
== END 2025-09-21 14:22 | disposition home or self-care (01) ==
LOC: HO.LAB 14:21
PROVIDERS: PCP Nurse Practitioner Family; Visit Provider Psychiatry & Neurology Psychiatry
DX: Z51.81 Encounter for therapeutic drug level monitoring (principal); F33.2 Major depressive disorder, recurrent severe without psychotic features; R94.31 Abnormal electrocardiogram [ECG] [EKG]
CPT/HCPCS: 36415; 80335; 82330; 82652; 83090; 83520; 83789; 83921; 83970; 84100; 84439; 84443; 84481; 85652; 86376; 93005

== ENCOUNTER → 2025-09-21 14:27 | Outpatient (BNV) | payer MEDICARE, SELFPAY | PROVIDERS: PCP Nurse Practitioner Family; Visit Provider Internal Medicine | DX: R94.31 Abnormal electrocardiogram [ECG] [EKG] (principal); Z13.6 Encounter for screening for cardiovascular disorders | CPT/HCPCS: 93010 ==